=== PATIENT | female | born 1940 | race African-American/Black ===

== ENCOUNTER 2016-12-01 13:06 | Inpatient (IN) | payer MEDICARE, MEDICAID ==
[~2016-12-01] VITALS: Ht 167.6 cm; Wt 68.0 kg
[~2016-12-01 13:06] MED LIST: ACETAMINOPHEN650 M2 ORAL; AMLODIPINE BESYL5 MG ORAL; AMLODIPINE BESYL5 MG PO; ARTIFICIAL TEAR15 ML BOTH EYES; ASPIRIN-LOW81 MG ORAL; AZASAN75 MG PO; AZATHIOPRINE50 MG PO; BACTRIM-DS1 EA ORAL; CARVEDILOL3.125 MG ORAL; CATAPRES0.1 MG ORAL; CHOLESTYRAMINE P4 GM ORAL; COLACE100 MG ORAL; COUMADIN4 MG PO; COUMADIN5 MG ORAL; CYCLOSPORINE100 MG PO; DIPHENHYDRAMINE25 M1 ORAL; DULCOLAX STOOL100 M1 PO; DUONEB 0.5-3(2.53 ML HHN; ESSENTIAL DAIL1 EAC1 PO; FERROUS SULFAT325 MG ORAL; FLORINEF0.1 MG ORAL; FUROSEMIDE40 MG ORAL; HYDRALAZINE HCL25 M1 ORAL; HYDROMORPHO1 MG/1 M2 IVP; LEVAQUIN500 MG ORAL; LOMOTIL TABLET1 EACH ORAL; LYRICA100 MG ORAL; LYRICA75 M1 ORAL; MORPHINE SU2 MG/1 M1 IV; MS CONTIN15 MG ORAL; MS CONTIN30 MG ORAL; OXYCODONE HCL5 MG PO; PERCOCET 10-321 EACH ORAL; PROTONIX20 MG ORAL; RESTORIL30 MG ORAL; ROBITUSSIN100 MG/52 ORAL; ROCEPHIN 11 GM/50 ML IVPB; TEMAZEPAM30 MG PO; VITAMIN C500 M1 ORAL; XARELTO15 MG ORAL; ZINC50 M2 ORAL; ZOSYN3.375 GM IV; ZYRTEC10 MG ORAL; ZYVOX600 MG ORAL; ZYVOX600 MG/300 IVPB
[2016-12-01] MEDS ORDERED: guaiFENesin 100mg/5ml Liq ud ORAL PRN (14:45)
[2016-12-01 16:00] VITALS: BP 143/58
[2016-12-01] MEDS: Lyrica 50mg cap ORAL SCH (19:56)
[2016-12-01] MEDS: Docusate 100mg cap ORAL SCH (19:57)
[2016-12-01 20:00] VITALS: BP 155/73
[2016-12-01] MEDS ORDERED: cycloSPORINE 100mg cap ORAL SCH (20:00)
--- NOTE | 2016-12-01 20:28 | Consultation ---
DATE OF CONSULTATION: 12/01/2016 NEPHROLOGY CONSULTATION REFERRING PHYSICIAN: John Red M.D. REASON FOR CONSULTATION: Management of patient with renal transplant. HISTORY OF PRESENT ILLNESS: The patient is well known to me, who had a kidney transplant in April of 2007 and generally stable renal function, although she had acute kidney injury in the past likely from Tacrolimus or cyclosporin toxicity a few years ago. She is maintained off of prednisone, usually on cyclosporin and Imuran. The patient was seen in the office of Dr. Red and sent directly into the hospital. She apparently had a fall about a week and has facial some contusions and ecchymoses. She is on warfarin for recurrent DVTs. 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 There is a history of congestive heart failure, peripheral vascular disease, recurrent UTIs, hypertension, diabetes, chronic pain, permanent pacemaker and coronary disease. PAST SURGICAL HISTORY: Kidney transplant, multiple dialysis vascular access surgeries, permanent pacemaker, multiple vascular procedures and debridement of the toe and foot ulcers right below-knee amputation and right above knee amputation. MEDICATIONS: The patient cannot give a list, we will try to obtain from the database. ALLERGIES: None known. HABITS: She is a nondrinker and nonsmoker. No use of illicit drugs. REVIEW OF SYSTEMS: HEENT: Generally, vision and hearing is good. Endocrine: She had glucose intolerance in the past, mostly due to steroids, not requiring long-term medications and no known thyroid disease. Pulmonary: No definite asthma or TB. Cardiac: History of permanent pacemaker and history of hypertension heart disease. No current chest pain. Gastrointestinal: She has had intermittent nausea and vomiting. She has had C. difficile in the past. Genitourinary: She has urinary incontinence and recurrent UTIs. No dysuria at this time. Neurologic: No CVA or seizures. She has had some metabolic encephalopathy. Psychiatric: History of chronic pain and anxiety. PHYSICAL EXAMINATION: GENERAL: She is alert, somewhat anxious lady in pain and uncomfortable. VITAL SIGNS: The patient was seen just shortly after arrival in the hospital and vital signs from the computer will be checked. HEENT: There is facial ecchymoses mostly underneath the left eye. Her eyes are open. Sclerae nonicteric. Oral mucosa moist. NECK: No adenopathy. LUNGS: Clear. HEART: Regular rhythm. I hear no murmur. ABDOMEN: Soft. No organomegaly or masses. Renal transplant in the right iliac fossa, nontender. EXTREMITIES: Right above knee amputation. Left leg with some recent alok. Trace edema. NEUROLOGIC: She is alert and responsive. Ocular motion intact in all directions. Smile symmetric. She moves all extremities. IMPRESSION: 1. Kidney transplant status. 2. History of recent falls. 3. Facial contusion. 4. History of recurrent urinary tract infections. 5. History of chronic pain. 6. History of peripheral vascular disease and prior vascular surgery with amputations. 7. Possible syncope. PLAN: Data will be checked. We will review her transplant regimen and review medications for her renal disease and follow closely in view of her multiple comorbidities. Thank you. Kade Cochran M.D. DR: AXEL JOB#: [id number] CC:
--- NOTE | 2016-12-01 21:48 | History and Physical Report ---
DATE OF ADMISSION: 12/01/2016 CHIEF COMPLAINT: Syncope. HISTORY OF PRESENT ILLNESS: The patient is a 76-year-old female, who presents to the office with complaints of syncopal episode. According to the patient, she was in a wheelchair and then shortly thereafter found herself being down on the floor. A friend brought her to the office. She had a large ecchymosis to her face. She denies any chest pain, shortness of breath, or palpitations. Denies any dizziness prior to the syncopal episode. She is now admitted for further evaluation and care. The patient was recently hospitalized to an outside hospital. She apparently had some type of surgery for a fracture of her hip or leg. She denies any fever or chills. No chest pain. No shortness of breath. PAST MEDICAL/SURGICAL HISTORY: As above. She has history of kidney transplant and history of right BKA. CURRENT MEDICATIONS: Reconciled and reviewed. ALLERGIES: None. FAMILY HISTORY: None. SOCIAL HISTORY: Negative for tobacco, ethanol, or drugs. REVIEW OF SYSTEMS: General: No fevers or chills. HEENT: No headaches or visual changes. Cardiopulmonary: No chest pain or shortness of breath. Gastrointestinal: No nausea or vomiting. Genitourinary: No urgency or frequency. Musculoskeletal: Positive history of phantom limb pain. Neurological: No evidence of seizures. PHYSICAL EXAMINATION: VITAL SIGNS: Temperature 98 degrees, blood pressure 140/74, pulse 80, and respirations 20. GENERAL: The patient is a well-developed female, in no apparent distress. HEENT: She has ecchymosis over the forehead and left face area. There is no crepitus noted. Extraocular movements are intact. NECK: Supple. There is no jugular venous distention. HEART: Regular rate and rhythm. LUNGS: Clear. ABDOMEN: Soft, nontender, and nondistended. EXTREMITIES: Without clubbing or cyanosis. The patient has right BKA. The left leg has sutures around the knee. ASSESSMENT: This is an elderly female, who complaints of a syncopal episode. 1. Syncope. 2. Questionable femur versus hip fracture, status post open reduction and internal fixation. 3. History of deep venous thrombosis. 4. History of hypertension. 5. History of anemia. 6. Hypertension. 7. Peripheral artery disease. 8. History of right [id number] amputation. PLAN: 1. Check laboratories. 2. Check an EKG. 3. Monitor on telemetry. 4. Check troponin. 5. Cardiology consultation. 6. Renal consultation regarding the patient's transplant medications. 7. Intravenous pain medications as needed for pain control. John Red M.D. DR: YISSEL JOB#: [id number] CC:
[2016-12-01] MEDS: HydrALAZINE 25mg tab ORAL SCH (22:01)
[2016-12-01] MEDS: Heparin 5000 units/ml inj SUBQ SCH (22:02)
[2016-12-01] MEDS: MS Contin 15mg tab ORAL SCH (22:02)
[2016-12-01] MEDS: NovoLOG Insulin Flexpen SUBQ SCH (22:05)
[2016-12-02] VITALS: BP 145/58
[2016-12-02 01:09] LABS: APPEARANCE,URINE CLOUDY; KETONES,URINE NEGATIVE (NEGATIVE); LEUKOCYTE ESTERASE ,URINE 3+ (NEGATIVE); NITRITE,URINE NEGATIVE (NEGATIVE); PH,URINE 6 (4.5-8.0); PROTEIN,URINE 3+ (NEGATIVE); UROBILINOGEN,URINE NORMAL MG/DL (0.0-1.0)
[2016-12-02 01:19] LABS: BACTERIA,URINE MANY /HPF; SQUAMOUS EPITHELIAL CELL,UR FEW /LPF (NONE/OCC); WBC,URINE TNTC /HPF (0 - 2)
[2016-12-02 04:00] VITALS: BP 154/61
[2016-12-02 05:48] VITALS: BP 134/70
[2016-12-02] MEDS: HydrALAZINE 25mg tab ORAL SCH ×3 (05:50→21:49)
[2016-12-02] MEDS: NovoLOG Insulin Flexpen SUBQ SCH ×4 (05:58→21:00)
[2016-12-02 06:37] LABS: BASOPHILS % (AUTO) 0.7 % (0.0-2.0); EOSINOPHILS % (AUTO) 1.7 % (0.0-3.0); LYMPHOCYTES % (AUTO) 22.5 % (20.0-45.0); MEAN CORPUSCULAR HEMOGLOBIN 30.7 PG (27.0-31.0); MEAN CORPUSCULAR HGB CONC 31.6 G/DL (32.0-36.0); MEAN CORPUSCULAR VOLUME 97 FL (80-99); NEUTROPHILS % (AUTO) 70.1 % (45.0-75.0); PLATELET COUNT 276 K/UL (150-450); RED BLOOD COUNT 3.15 M/UL (4.20-5.40); RED CELL DISTRIBUTION WIDTH 13.6 % (11.6-14.8); WHITE BLOOD COUNT 6.3 K/UL (4.8-10.8)
[2016-12-02 06:45] LABS: INR 1.1 (0.9-1.1); PROTHROMBIN TIME 11.4 SEC (9.30-11.50)
[2016-12-02 07:12] LABS: ALANINE AMINOTRANSFERASE 5 U/L (3-33); ALBUMIN/GLOBULIN RATIO 0.7 (1.0-2.7); ANION GAP 14 (5-15); ASPARTATE AMINO TRANSFERASE 13 U/L (5-40); CARBON DIOXIDE 25 mEQ/L (20-30); CHLORIDE 106 mEQ/L (98-107); CREATININE 1.1 mg/dL (0.5-0.9); HEMOLYSIS 3; POTASSIUM 3.7 mEQ/L (3.4-4.9); SODIUM 145 mEQ/L (135-145); TOTAL PROTEIN 7.1 g/dL (6.6-8.7)
[2016-12-02 07:57] VITALS: BP 125/55
[2016-12-02] MEDS: Docusate 100mg cap ORAL SCH ×2 (08:38→18:00)
[2016-12-02] MEDS: Aspirin EC 81mg tab ORAL SCH (08:41)
[2016-12-02] MEDS: azaTHIOprine 50 MG TAB ORAL SCH (08:42)
[2016-12-02] MEDS: Furosemide 40mg tab ORAL SCH (08:43)
[2016-12-02] MEDS: Lyrica 50mg cap ORAL SCH ×2 (08:44→18:20)
[2016-12-02] MEDS: MS Contin 15mg tab ORAL SCH ×2 (08:45→21:49)
[2016-12-02] MEDS: Ascorbic Acid 500mg tab ORAL SCH (08:46)
[2016-12-02] MEDS: cycloSPORINE 25mg cap ORAL SCH ×2 (08:47→18:20)
[2016-12-02] MEDS: Heparin 5000 units/ml inj SUBQ SCH ×2 (08:48→21:51)
[2016-12-02 12:00] VITALS: BP 140/77
--- NOTE | 2016-12-02 16:10 | Wound Care Consultation ---
Wound Assessment Wound Assessment #1: Wound Present on Admission: Yes New Wound: No Status Change of Wound: No Wound Location Body Site Modif: mid Wound Location Body Site: sacral Wound Type: pressure ulcer Rodolfo Test: Does not Rodolfo Pressure Ulcer Stage: III Wound Thickness: Full Thickness Wound Depth: 0.2 Percent of Wound [place]/Red: 100 Wound Drainage Amount: Scant Wound Drainage Odor: None/Absent Tissue Surrounding Wound: full thickness scar tissue Wound General Appearance: Reddened Wound Assessment #2: Wound Number: #2 Wound Present on Admission: Yes New Wound: No Status Change of Wound: No Wound Location Body Site Modif: left Wound Location Body Site: trochanter Wound Type: pressure ulcer Rodolfo Test: Does not Rodolfo Pressure Ulcer Stage: IV/unstageable Wound Thickness: Full Thickness Wound Length: 1.5 Wound Width: 4.0 Wound Depth: utd Percent of Wound Bed Yellow/Wh: 70 Percent of Wound Black/Brown: 30 Wound Drainage Amount: None Wound Drainage Odor: None/Absent Tissue Surrounding Wound: Indurated Wound Assessment #3: Wound Number: #3 Wound Present on Admission: Yes New Wound: No Status Change of Wound: No Wound Location Body Site Modif: right Wound Location Body Site: trochanter Wound Type: pressure ulcer Rodolfo Test: Does not Rodolfo Wound Thickness: Full Thickness Wound Length: 1.5 Wound Width: 2.5 Wound Depth: utd Percent of Wound [place]/Red: 100 Wound Drainage Amount: None Wound Drainage Odor: None/Absent Tissue Surrounding Wound: Intact Wound Assessment #4: Wound Number: #4 Wound Present on Admission: Yes New Wound: No Status Change of Wound: No Wound Location Body Site Modif: left Wound Location Body Site: toe - great toe Wound Type: scab Rodolfo Test: Does not Rodolfo Wound Thickness: Full Thickness Wound Length: 1.5 Wound Width: 2.0 Wound Depth: utd Wound Drainage Amount: None Wound Drainage Odor: None/Absent Tissue Surrounding Wound: Intact Wound General Appearance: Asymptomatic Wound Assessment #5: Wound Number: #5 Wound Present on Admission: Yes New Wound: No Status Change of Wound: No Wound Location Body Site: perineal area Wound Type: chemical burn Wound Drainage Amount: None Wound Drainage Odor: None/Absent Tissue Surrounding Wound: Erythemic Wound General Appearance: Reddened Wound Comment #1 Sacral scattered stage III pressure ulcers #2 Left trochanter stage IV/unstageable pressure ulcers #3 Right trochanter and right buttock with full thickness scar tissue #4 Chemical burn on perineal area #5 Left big toe s/p amputation with dry scab #6 Left knee and groin area incision with alok Recommendation -Sacral area scattered stage III pressure ulcers , cleanse with saline, pat dry , apply Triad cream, cover with Biatain silicone daily and PRN soiled/dislodged -Left trochanter stage IV/unstageable pressure ulcer, cleanse with saline, pat dry, apply Silvasorb gel to wound bed, cover with Biatain silicone daily and PRN soiled/ dislodged -Chemical burn on perineal area, cleanse with saline, pat dry, apply Triad cream BID and leave area open to air -F/u with surgeon for the care and further orders regarding incisions with alok on the left knee area and groin area. -Turn and reposition -Low air loss overlay mattress -Optimize nutrition -Keep clean and dry -Offload left heel -Assess and f/u accordingly for any changes NANDA MILLS RN Dec 02, 2016 16:10
[2016-12-02] MEDS ORDERED: Tubing IV Secondary IV ONE (16:49)
--- NOTE | 2016-12-02 16:59 | General Progress Note ---
Assessment/Plan Problem List: (1) Encephalopathy acute ICD Codes: G93.40 - Encephalopathy acute SNOMED: 3481526 (2) Dehydration ICD Codes: E86.0 - Dehydration SNOMED: 58781912 (3) Urinary tract infection (4) Diastolic CHF with preserved left ventricular function, NYHA class 2 ICD Codes: I50.30 - Unspecified diastolic (congestive) heart failure SNOMED: 976049381, 139057853, 165718835, 674949692 (5) Incontinence of urine in female ICD Codes: R32 - Unspecified urinary incontinence SNOMED: 182492410 (6) Kidney transplanted ICD Codes: Z94.0 - Kidney transplanted SNOMED: 245353108 Status: stable Assessment/Plan xray left hip/leg/knee IV abx per ID wound care follow up cultures pain rx kidney transplant meds per renal cards follow up Subjective ROS Limited/Unobtainable: No Constitutional: Reports: malaise, weakness HEENT: Reports: no symptoms Cardiovascular: Reports: no symptoms Respiratory: Reports: no symptoms Gastrointestinal/Abdominal: Reports: no symptoms Genitourinary: Reports: no symptoms Neurologic/Psychiatric: Reports: no symptoms Endocrine: Reports: no symptoms Hematologic/Lymphatic: Reports: no symptoms Allergies: Coded Allergies: No Known Allergies (Verified , 05/29/09) All Systems: reviewed and negative except above Subjective c/o generalized pain, especially left leg. wound consult noted. no chest pain no sob. also c/o insomnia and anxiety. Objective Last 24 Hour Vital Signs Date Time Temp Pulse Resp B/P Pulse Ox O2 Delivery O2 Flow Rate FiO2 12/02/16 14:38 137/79 12/02/16 12:00 97.9 82 19 140/77 98 Room Air 12/02/16 08:46 81 125/75 12/02/16 07:57 98.1 81 20 125/55 100 Room Air 12/02/16 05:50 134/70 12/02/16 05:48 96.4 78 18 134/70 100 Room Air 12/02/16 04:00 97.9 89 18 154/61 100 Room Air 12/02/16 00:00 97.7 87 18 145/58 100 Room Air 12/01/16 22:01 155/73 12/01/16 20:00 98.1 87 22 155/73 99 Room Air Intake and Output 12/01/16 12/02/16 19:00 07:00 Intake Total 2020 ml Balance 2020 ml Intake Oral 1600 ml IV Total 420 ml # Voids 3 # Bowel Movements 2 Laboratory Tests 12/02/16 00:30: Urine Color Yellow, Urine Appearance Cloudy, Urine pH 6, Urine Specific [place] 1.010, Urine Protein 3+H, Urine Glucose (UA) Negative, Urine Ketones Negative, Urine Occult Blood 3+H, Urine Nitrite Negative, Urine Bilirubin Negative, Urine Urobilinogen Normal, Urine Leukocyte Esterase 3+H, Urine RBC 5-10H, Urine WBC TntcH, Urine Squamous Epithelial Cells Few, Urine Bacteria ManyH 12/02/16 05:15: White Blood Count 6.3, Red Blood Count 3.15L, Hemoglobin 9.7L, Hematocrit 30.5L , Mean Corpuscular Volume 97, Mean Corpuscular Hemoglobin 30.7, Mean Corpuscular Hemoglobin Concent 31.6L, Red Cell Distribution Width 13.6, Platelet Count 276, Mean Platelet Volume 8.0, Neutrophils (%) (Auto) 70.1, Lymphocytes (%) (Auto) 22.5, Monocytes (%) (Auto) 5.0, Eosinophils (%) (Auto) 1.7, Basophils (%) (Auto) 0.7, Prothrombin Time 11.4, Prothromb Time International Ratio 1.1, Sodium Level 145, Potassium Level 3.7, Chloride Level 106, Carbon Dioxide Level 25, Anion Gap 14, Blood Urea Nitrogen 17, Creatinine 1.1H, Estimat Glomerular Filtration Rate , Glucose Level 96, Calcium Level 9.0, Total Bilirubin 0.5, Aspartate Amino Transf (AST/SGOT) 13, Alanine Aminotransferase (ALT/SGPT) 5, Alkaline Phosphatase 105H, Total Protein 7.1, Albumin 3.1L, Globulin 4.0, Albumin/Globulin Ratio 0.7L Height (Feet): 5 Height (Inches): 6.00 Weight (Pounds): 150 General Appearance: WD/WN, alert, thin Neck: non-tender, normal alignment, supple Cardiovascular: normal peripheral pulses, normal rate, regular rhythm Respiratory/Chest: chest wall non-tender, lungs clear, normal breath sounds, no respiratory distress Abdomen: normal bowel sounds, non tender, soft, no organomegaly, no mass Extremities: other - alok left knee/leg. 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
[2016-12-02] MEDS: cefTRIAXone 1 GM in D5W 55 ML IVPB SCH (18:20)
[2016-12-02 20:19] VITALS: BP 124/54
--- NOTE | 2016-12-02 22:12 | Nephrology Progress Note ---
Assessment/Plan Problem List: (1) Peripheral vascular disease (2) Urinary tract infection (3) Diastolic CHF with preserved left ventricular function, NYHA class 2 (4) Status post kidney transplant Plan continue current imuran and cyclosporin, Rx for uti Subjective Constitutional: Reports: weakness HEENT: Reports: no symptoms Genitourinary: Reports: burning, incontinence Neurologic/Psychiatric: Reports: pre-existing deficit Objective Objective Last 24 Hour Vital Signs Date Time Temp Pulse Resp B/P Pulse Ox O2 Delivery O2 Flow Rate FiO2 12/02/16 21:49 124/54 12/02/16 20:19 97.0 54 18 124/54 100 Room Air 12/02/16 14:38 137/79 12/02/16 12:00 97.9 82 19 140/77 98 Room Air 12/02/16 08:46 81 125/75 12/02/16 07:57 98.1 81 20 125/55 100 Room Air 12/02/16 05:50 134/70 12/02/16 05:48 96.4 78 18 134/70 100 Room Air 12/02/16 04:00 97.9 89 18 154/61 100 Room Air 12/02/16 00:00 97.7 87 18 145/58 100 Room Air Intake and Output 12/01/16 12/02/16 19:00 07:00 Intake Total 2020 ml Balance 2020 ml Intake Oral 1600 ml IV Total 420 ml # Voids 3 # Bowel Movements 2 Laboratory Tests 12/02/16 00:30: Urine Color Yellow, Urine Appearance Cloudy, Urine pH 6, Urine Specific [place] 1.010, Urine Protein 3+H, Urine Glucose (UA) Negative, Urine Ketones Negative, Urine Occult Blood 3+H, Urine Nitrite Negative, Urine Bilirubin Negative, Urine Urobilinogen Normal, Urine Leukocyte Esterase 3+H, Urine RBC 5-10H, Urine WBC TntcH, Urine Squamous Epithelial Cells Few, Urine Bacteria ManyH 12/02/16 05:15: White Blood Count 6.3, Red Blood Count 3.15L, Hemoglobin 9.7L, Hematocrit 30.5L , Mean Corpuscular Volume 97, Mean Corpuscular Hemoglobin 30.7, Mean Corpuscular Hemoglobin Concent 31.6L, Red Cell Distribution Width 13.6, Platelet Count 276, Mean Platelet Volume 8.0, Neutrophils (%) (Auto) 70.1, Lymphocytes (%) (Auto) 22.5, Monocytes (%) (Auto) 5.0, Eosinophils (%) (Auto) 1.7, Basophils (%) (Auto) 0.7, Prothrombin Time 11.4, Prothromb Time International Ratio 1.1, Sodium Level 145, Potassium Level 3.7, Chloride Level 106, Carbon Dioxide Level 25, Anion Gap 14, Blood Urea Nitrogen 17, Creatinine 1.1H, Estimat Glomerular Filtration Rate , Glucose Level 96, Calcium Level 9.0, Total Bilirubin 0.5, Aspartate Amino Transf (AST/SGOT) 13, Alanine Aminotransferase (ALT/SGPT) 5, Alkaline Phosphatase 105H, Total Protein 7.1, Albumin 3.1L, Globulin 4.0, Albumin/Globulin Ratio 0.7L Height (Feet): 5 Height (Inches): 6.00 Weight (Pounds): 150 General Appearance: no apparent distress, alert EENT: other - facil eccymoses Neck: non-tender Cardiovascular: normal peripheral pulses, normal rate, regular rhythm Respiratory/Chest: lungs clear, normal breath sounds Abdomen: non tender, soft Extremities: pitting, other - r aka 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
[2016-12-03] VITALS: BP 134/66
[2016-12-03 04:00] VITALS: BP 114/78
[2016-12-03] MEDS: HydrALAZINE 25mg tab ORAL SCH ×3 (06:27→20:45)
[2016-12-03] MEDS: NovoLOG Insulin Flexpen SUBQ SCH ×4 (06:27→20:57)
--- NOTE | 2016-12-03 07:54 | General Progress Note ---
Assessment/Plan Problem List: (1) Encephalopathy acute ICD Codes: G93.40 - Encephalopathy acute SNOMED: 3789913 (2) Dehydration ICD Codes: E86.0 - Dehydration SNOMED: 93333038 (3) Urinary tract infection (4) Diastolic CHF with preserved left ventricular function, NYHA class 2 ICD Codes: I50.30 - Unspecified diastolic (congestive) heart failure SNOMED: 616397864, 795399662, 919030298, 813293815 (5) Incontinence of urine in female ICD Codes: R32 - Unspecified urinary incontinence SNOMED: 959088117 (6) Kidney transplanted ICD Codes: Z94.0 - Kidney transplanted SNOMED: 688959762 Status: stable, progressing Assessment/Plan xray left hip/leg/knee IV abx per ID wound care follow up cultures pain rx kidney transplant meds per renal cards follow up pain meds adjusted. check duplex leg Subjective ROS Limited/Unobtainable: No Constitutional: Reports: weakness HEENT: Reports: no symptoms Cardiovascular: Reports: no symptoms Respiratory: Reports: no symptoms Gastrointestinal/Abdominal: Reports: no symptoms Genitourinary: Reports: no symptoms Neurologic/Psychiatric: Reports: pre-existing deficit Endocrine: Reports: no symptoms Hematologic/Lymphatic: Reports: anemia Allergies: Coded Allergies: No Known Allergies (Verified , 05/29/09) All Systems: reviewed and negative except above Subjective c/o generalized pain, especially left leg. wound consult noted. no chest pain no sob. per pt pain poorly controlled. Objective Last 24 Hour Vital Signs Date Time Temp Pulse Resp B/P Pulse Ox O2 Delivery O2 Flow Rate FiO2 12/03/16 06:27 114/78 12/03/16 04:00 97.9 85 19 114/78 96 Room Air 12/03/16 00:00 97.2 91 18 134/66 98 Room Air 12/02/16 22:48 97.0 12/02/16 21:49 124/54 12/02/16 21:00 83 12/02/16 20:19 97.0 54 18 124/54 100 Room Air 12/02/16 14:38 137/79 12/02/16 12:00 97.9 82 19 140/77 98 Room Air 12/02/16 08:46 81 125/75 12/02/16 07:57 98.1 81 20 125/55 100 Room Air Intake and Output 2/28/17 3/1/17 19:00 07:00 Intake Total 1237 ml 870 ml Output Total 0 ml Balance 1237 ml 870 ml Intake Oral 482 ml 240 ml IV Total 755 ml 630 ml Output Urine Total 0 ml # Voids 2 2 # Bowel Movements 1 Height (Feet): 5 Height (Inches): 6.00 Weight (Pounds): 150 General Appearance: WD/WN, alert Neck: supple Cardiovascular: regular rhythm Respiratory/Chest: chest wall non-tender, lungs clear, normal breath sounds, no respiratory distress Abdomen: normal bowel sounds, non tender, soft, no organomegaly Edema: no edema noted Arm (L), no edema noted Arm (R), no edema noted Leg (L), no edema noted Leg (R), no edema noted Pedal (L), no edema noted Pedal (R), no edema noted Generalized 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
[2016-12-03 08:40] VITALS: BP 120/75
[2016-12-03] MEDS: Docusate 100mg cap ORAL SCH ×2 (09:00→17:52)
[2016-12-03] MEDS: cycloSPORINE 25mg cap ORAL SCH ×2 (09:39→17:50)
[2016-12-03] MEDS: Furosemide 40mg tab ORAL SCH (09:39)
[2016-12-03] MEDS: Aspirin EC 81mg tab ORAL SCH (09:39)
[2016-12-03] MEDS: Lyrica 50mg cap ORAL SCH ×2 (09:40→17:51)
[2016-12-03] MEDS: Ascorbic Acid 500mg tab ORAL SCH (09:41)
[2016-12-03] MEDS: MS Contin 15mg tab ORAL SCH ×2 (09:41→21:00)
[2016-12-03] MEDS: azaTHIOprine 50 MG TAB ORAL SCH (09:41)
[2016-12-03] MEDS: Heparin 5000 units/ml inj SUBQ SCH ×2 (09:50→21:08)
--- NOTE | 2016-12-03 11:11 | Diagnostic Imaging Report ---
Indications: hip pain Findings: Two views of the left hip were obtained. 2 views of the left hip show pins reducing a fracture of the femoral neck. There is also an intramedullary carlo that is only seen in its upper portion. The carlo extends to the lower shaft of the femur. Stent within the distal SFA noted. Surgical clips and vascular lesions are noted. Impression: No acute injury identified
--- NOTE | 2016-12-03 11:13 | Diagnostic Imaging Report ---
Indication: Pain 3 views of the left knee were obtained. Findings: The bones are osteopenic. There is an acute fracture of the metadiaphysis of the distal femur. The fracture is oblique and extends through the intramedullary carlo. The fracture is intra-articular as the anterior part of the fracture extends into the suprapatellar pouch. Extensive stenting of the distal SFA and popliteal artery are noted. Surgical clips demonstrated. There are skin alok and gas within the knee. Impression: Acute distal femur fracture. Intramedullary carlo noted in place. Status post recent surgery involving the intra-part of the knee. Vascular disease. Status post distal SFA and popliteal artery stenting. Osteoporosis
[2016-12-03 12:00] VITALS: BP 115/70
[2016-12-03] MEDS: HYDROmorphone 1mg/ml Carpuject IVP PRN (14:04)
[2016-12-03 16:00] VITALS: BP 133/49
[2016-12-03] MEDS ORDERED: Tubing IV Secondary IV ONE (17:21)
[2016-12-03] MEDS: cefTRIAXone 1 GM in D5W 55 ML IVPB SCH (17:51)
[2016-12-03 20:00] VITALS: BP 119/55
--- NOTE | 2016-12-03 21:26 | Nephrology Progress Note ---
Assessment/Plan Problem List: (1) Peripheral vascular disease (2) Urinary tract infection (3) Diastolic CHF with preserved left ventricular function, NYHA class 2 (4) Status post kidney transplant (5) Syncopal episodes Plan continue current imuran and cyclosporin, Rx for uti Subjective Constitutional: Reports: weakness HEENT: Reports: no symptoms Genitourinary: Reports: frequency, incontinence Neurologic/Psychiatric: Reports: emotional problems Objective Objective Last 24 Hour Vital Signs Date Time Temp Pulse Resp B/P Pulse Ox O2 Delivery O2 Flow Rate FiO2 12/03/16 20:45 119/55 12/03/16 20:00 97.2 80 18 119/55 96 Room Air 12/03/16 16:00 97.3 82 19 133/49 97 Room Air 12/03/16 14:29 96.6 12/03/16 14:05 115/70 12/03/16 12:00 98.2 83 19 115/70 98 Room Air 12/03/16 10:40 96.6 12/03/16 09:39 90 120/75 12/03/16 09:35 96.6 12/03/16 08:40 96.6 90 18 120/75 98 Room Air 12/03/16 06:27 114/78 12/03/16 04:00 97.9 85 19 114/78 96 Room Air 12/03/16 00:00 97.2 91 18 134/66 98 Room Air 12/02/16 21:49 124/54 Intake and Output 12/02/16 12/03/16 19:00 07:00 Intake Total 1237 ml 1110 ml Output Total 0 ml Balance 1237 ml 1110 ml Intake Oral 482 ml 480 ml IV Total 755 ml 630 ml Output Urine Total 0 ml # Voids 2 3 # Bowel Movements 1 Height (Feet): 5 Height (Inches): 6.00 Weight (Pounds): 150 General Appearance: no apparent distress, alert EENT: PERRL/EOMI, other - facial eccymoses Neck: normal alignment Cardiovascular: normal rate, regular rhythm Respiratory/Chest: lungs clear, normal breath sounds Abdomen: non tender, soft Extremities: other - r aka 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
[2016-12-04] VITALS: BP 133/74
--- NOTE | 2016-12-04 03:38 | Progress Note ---
DATE: 12/02/2016 CARDIOLOGY PROGRESS NOTE SUBJECTIVE: The patient has not had any recurring loss of consciousness. She notes no nausea or vomiting. No chest pain, palpitations, or shortness of breath. OBJECTIVE: VITAL SIGNS: Blood pressure 124/54, pulse 82, and respirations 18. Afebrile. NECK: Supple. LUNGS: Clear. CARDIAC: Regular rhythm and rate. Normal S1 and S2. ABDOMEN: Soft. EXTREMITIES: Right AKA. LABORATORY DATA: Hemoglobin 9.7. Albumin 3.1. BUN 17, creatinine 1.1 and potassium 3.7. IMPRESSION: 1. Status post left leg fracture. 2. Urinary tract infection. 3. Renal transplant. 4. Vasovagal mediated syncope rule out pacemaker failure. 5. Chronic diastolic congestive heart failure. 6. Type 2 diabetes mellitus. 7. History of renal transplant. PLAN: 1. Immunosuppressive therapy. 2. Antimicrobials. 3. Pain control. 4. Pacemaker interrogation. 5. Reassess for anticoagulation. Matthew Tinajero M.D. DR: PATRICIA JOB#: [id number] CC:
--- NOTE | 2016-12-04 03:38 | Progress Note ---
DATE: 12/03/2016 CARDIOLOGY PROGRESS NOTE SUBJECTIVE: The patient is without any new episodes of loss of consciousness. OBJECTIVE: VITAL SIGNS: Blood pressure 114/78, pulse 85, respirations 19, and afebrile. NECK: Supple. LUNGS: Clear. CARDIAC: Regular. Normal S1 and S2. ABDOMEN: Soft. EXTREMITIES: Right AKA. Left knee area with suture site. LABORATORY AND DIAGNOSTIC DATA: Venous duplex is pending. Laboratories were reviewed. IMPRESSION: 1. Syncopal episode etiology unclear likely vasovagal mediated. 2. Need to rule out pacemaker failure. 3. Peripheral artery disease. 4. Hypertensive heart disease. 5. Left leg fracture status post open reduction and internal fixation. 6. History of renal transplant. PLAN: 1. X-rays of the lower extremity are pending. 2. Immunosuppressive therapy has been titrated. 3. Pacemaker interrogation will be anticipated tomorrow. 4. Venous duplex to assess for source of pulmonary emboli and need for recurring anticoagulation. 5. Further recommendations will follow. Matthew Tinajero M.D. DR: PATRICIA JOB#: [id number] CC:
--- NOTE | 2016-12-04 03:38 | Consultation ---
DATE OF CONSULTATION: 12/01/2016 CARDIOLOGY CONSULTATION REQUESTING PHYSICIAN: John Red M.D. REASON FOR CONSULTATION: Syncope. HISTORY OF PRESENT ILLNESS: This is a 76-year-old female with hypertensive heart disease and permanent pacemaker. She was in a wheelchair and suddenly found herself down on the floor, which occurred at home. She suffered a contusion to her face with large ecchymosis subsequently developing. She was brought to the office of her primary care physician for evaluation and then admitted to the hospital for further management. PAST MEDICAL HISTORY: Renal transplant, right BKA, permanent pacemaker, hypertensive heart disease, degenerative disk disease, recent hip fracture, insulin-requiring diabetes mellitus, diabetic neuropathy, and history of DVT. ALLERGIES: None. FAMILY HISTORY: Not remarkable. SOCIAL HISTORY: Negative for smoking, alcohol, or substance abuse. REVIEW OF SYSTEMS: No history of retinopathy, diabetes managed with diet, insulin-requiring if she is on steroids. No nausea or vomiting. She has had a history of C. difficile in the past. No history of seizures. No history of asthma. No history of blood clots in the legs. Her most recent echocardiogram revealed normal ejection fraction with mild degenerative valve disease. There is no history of thyroid disorder. Cholesterol parameters are not presently available. PHYSICAL EXAMINATION: GENERAL: She is presently in no acute distress, but anxious. Afebrile. VITAL SIGNS: Blood pressure 142/58, pulse 80, and respirations 20. HEENT: Temporal wasting. Pale conjunctivae. Arcus senilis. Oropharynx is clear. NECK: Supple. No carotid sinus hypersensitivity. LUNGS: Clear. CARDIAC: Regular rhythm and rate. Normal S1 and S2 with a fourth heart sound. ABDOMEN: Soft and nontender. EXTREMITIES: Right BKA. Left leg wound sutures around the knee. IMAGING STUDIES: Pacemaker pocket site clean and dry on the chest wall. IMPRESSION: 1. Syncopal episode etiology unclear. 2. Permanent pacemaker rule out pacemaker failure. 3. Recent hip or femur fracture. 4. History of deep vein thrombosis on anticoagulation. 5. History of hypertension. 6. Type 2 diabetes mellitus. 7. Severe peripheral artery disease. 8. History of renal transplant. PLAN: 1. We will review EKG. 2. We will obtain pacemaker interrogation. 3. We will monitor orthostatics. 4. Further recommendations to follow. Matthew Jennifer Tinajero DR: PATRICIA JOB#: [id number] CC:
[2016-12-04] MEDS: HydrALAZINE 25mg tab ORAL SCH ×3 (06:00→21:42)
[2016-12-04] MEDS: NovoLOG Insulin Flexpen SUBQ SCH ×4 (06:18→20:34)
[2016-12-04] MEDS: cycloSPORINE 25mg cap ORAL SCH ×2 (07:59→17:41)
[2016-12-04] MEDS: Lyrica 50mg cap ORAL SCH ×2 (07:59→17:41)
[2016-12-04] MEDS: Ascorbic Acid 500mg tab ORAL SCH (07:59)
[2016-12-04] MEDS: MS Contin 15mg tab ORAL SCH ×2 (08:00→20:35)
[2016-12-04] MEDS: Aspirin EC 81mg tab ORAL SCH (08:00)
[2016-12-04] MEDS: Furosemide 40mg tab ORAL SCH (08:01)
[2016-12-04] MEDS: Docusate 100mg cap ORAL SCH ×2 (08:01→17:41)
[2016-12-04] MEDS: azaTHIOprine 50 MG TAB ORAL SCH (08:01)
[2016-12-04] MEDS: Heparin 5000 units/ml inj SUBQ SCH ×2 (08:12→20:33)
[2016-12-04 08:58] VITALS: BP 126/61
--- NOTE | 2016-12-04 12:28 | Diagnostic Imaging Report ---
APPROVED REPORT CPT Code: 08679 Present Symptoms Lower Extremity Pain: Left LEFT LEG: Venous imaging reveals recanalized chronic thrombus in the common femoral vein. The remainder of the deep venous system is within normal limits. There is no evidence of thrombus in the superficial femoral, popliteal or calf veins. Doppler indicates normal spontaneous flow within these segments. There is no evidence of acute deep vein thrombosis.
[2016-12-04 12:53] VITALS: BP 113/56
[2016-12-04] MEDS: HYDROmorphone 1mg/ml Carpuject IVP PRN (13:28)
--- NOTE | 2016-12-04 13:59 | General Progress Note ---
Assessment/Plan Problem List: (1) Encephalopathy acute ICD Codes: G93.40 - Encephalopathy acute SNOMED: 5673725 (2) Dehydration ICD Codes: E86.0 - Dehydration SNOMED: 62205899 (3) Urinary tract infection (4) Diastolic CHF with preserved left ventricular function, NYHA class 2 ICD Codes: I50.30 - Unspecified diastolic (congestive) heart failure SNOMED: 977230000, 938250403, 775389214, 727852827 (5) Incontinence of urine in female ICD Codes: R32 - Unspecified urinary incontinence SNOMED: 891486074 (6) Kidney transplanted ICD Codes: Z94.0 - Kidney transplanted SNOMED: 787916621 Status: stable, progressing Assessment/Plan xray left hip/leg/knee noted IV abx per ID wound care follow up cultures- gnr pain rx kidney transplant meds per renal cards follow up pain meds adjusted. ortho eval called will likely need snf. Subjective ROS Limited/Unobtainable: No Constitutional: Reports: malaise, weakness HEENT: Reports: no symptoms Cardiovascular: Reports: no symptoms Respiratory: Reports: no symptoms Gastrointestinal/Abdominal: Reports: no symptoms Genitourinary: Reports: no symptoms Neurologic/Psychiatric: Reports: pre-existing deficit Endocrine: Reports: no symptoms Hematologic/Lymphatic: Reports: no symptoms Allergies: Coded Allergies: No Known Allergies (Verified , 05/29/09) All Systems: reviewed and negative except above Subjective c/o generalized pain, especially left leg. wound consult noted. no chest pain no sob. per pt pain poorly controlled. on dilaudid iv. xrays noted. ucx with GNR Objective Last 24 Hour Vital Signs Date Time Temp Pulse Resp B/P Pulse Ox O2 Delivery O2 Flow Rate FiO2 12/04/16 13:07 113/56 12/04/16 12:53 97.7 78 19 113/56 97 Room Air 12/04/16 08:59 97.0 12/04/16 08:58 97.0 82 19 126/61 100 Room Air 12/04/16 08:03 87 123/51 12/04/16 07:30 98.1 12/04/16 06:00 123/51 12/04/16 00:00 98.1 87 19 133/74 98 Room Air 12/03/16 20:45 119/55 12/03/16 20:00 97.2 80 18 119/55 96 Room Air 12/03/16 16:00 97.3 82 19 133/49 97 Room Air 12/03/16 14:29 96.6 12/03/16 14:05 115/70 Intake and Output 12/03/16 12/04/16 18:59 06:59 Intake Total 55 ml 240 ml Balance 55 ml 240 ml Intake Oral 240 ml IV Total 55 ml # Voids 2 3 Height (Feet): 5 Height (Inches): 6.00 Weight (Pounds): 150 Objective General Appearance: WD/WN, alert Neck: supple Cardiovascular: regular rhythm Respiratory/Chest: chest wall non-tender, lungs clear, normal breath sounds, no respiratory distress Abdomen: normal bowel sounds, non tender, soft, no organomegaly Edema: no edema noted Arm (L), no edema noted Arm (R), no edema noted Leg (L), no edema noted Leg (R), no edema noted Pedal (L), no edema noted Pedal (R), no edema noted Generalized. left leg with alok. 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
--- NOTE | 2016-12-04 17:23 | Nephrology Progress Note ---
Assessment/Plan Problem List: (1) Peripheral vascular disease (2) Urinary tract infection (3) Diastolic CHF with preserved left ventricular function, NYHA class 2 (4) Status post kidney transplant (5) Syncopal episodes Plan continue current imuran and cyclosporin, Rx for uti Subjective Constitutional: Reports: weakness HEENT: Reports: no symptoms Genitourinary: Reports: incontinence Neurologic/Psychiatric: Reports: no symptoms Objective Objective Last 24 Hour Vital Signs Date Time Temp Pulse Resp B/P Pulse Ox O2 Delivery O2 Flow Rate FiO2 12/04/16 13:58 97.7 12/04/16 13:07 113/56 12/04/16 12:53 97.7 78 19 113/56 97 Room Air 12/04/16 08:59 97.0 12/04/16 08:58 97.0 82 19 126/61 100 Room Air 12/04/16 08:03 87 123/51 12/04/16 07:30 98.1 12/04/16 06:00 123/51 12/04/16 00:00 98.1 87 19 133/74 98 Room Air 12/03/16 20:45 119/55 12/03/16 20:00 97.2 80 18 119/55 96 Room Air Intake and Output 12/03/16 12/04/16 19:00 07:00 Intake Total 55 ml 240 ml Balance 55 ml 240 ml Intake Oral 240 ml IV Total 55 ml # Voids 2 3 Height (Feet): 5 Height (Inches): 6.00 Weight (Pounds): 150 General Appearance: no apparent distress, confused EENT: normal ENT inspection, other - fading eccymoses Cardiovascular: normal rate, regular rhythm Respiratory/Chest: lungs clear, normal breath sounds Abdomen: soft, no organomegaly Extremities: other - amputee APURVA ROBERTSON Dec 04, 2016 17:23
[2016-12-04] MEDS: cefTRIAXone 1 GM in D5W 55 ML IVPB SCH (17:41)
[2016-12-04 20:00] VITALS: BP 127/60
[2016-12-05 04:00] VITALS: BP 119/61
[2016-12-05] MEDS: HydrALAZINE 25mg tab ORAL SCH ×3 (06:00→20:49)
--- NOTE | 2016-12-05 06:00 | Progress Note ---
DATE: 12/04/2016 CARDIOLOGY PROGRESS NOTE: SUBJECTIVE: Complained of pain of her left leg. She is not short of breath and has no chest pain. Her pacemaker was interrogated today and noted to have appropriate function with no arrhythmias . OBJECTIVE: VITAL SIGNS: Blood pressure 113/56, pulse 78, and respirations 19. Afebrile. NECK: Supple. LUNGS: Clear. CARDIAC: Regular. Normal S1, S2. ABDOMEN: Soft. EXTREMITIES: Right above-knee amputation. Left leg wound site with bruising. IMPRESSION: 1. Urinary tract infection. 2. Sepsis. 3. Toxic encephalopathy. 4. Blurred contusion with acute pain. 5. Diabetic neuropathy. 6. Right above-knee amputation. 7. Permanent pacemaker with stable function. 8. Hypertensive heart disease with controlled blood pressure. PLAN: 1. Antibiotics. 2. Pain control. 3. Titrate insulin and antihypertensive therapy. Matthew Tinajero M.D. DR: NGOZI JOB#: [id number] CC:
[2016-12-05] MEDS: NovoLOG Insulin Flexpen SUBQ SCH ×4 (06:12→20:48)
--- NOTE | 2016-12-05 08:31 | General Progress Note ---
Assessment/Plan Problem List: (1) Encephalopathy acute ICD Codes: G93.40 - Encephalopathy acute SNOMED: 8544237 (2) Dehydration ICD Codes: E86.0 - Dehydration SNOMED: 73689919 (3) Urinary tract infection (4) Diastolic CHF with preserved left ventricular function, NYHA class 2 ICD Codes: I50.30 - Unspecified diastolic (congestive) heart failure SNOMED: 211578576, 144119824, 948206251, 163671476 (5) Incontinence of urine in female ICD Codes: R32 - Unspecified urinary incontinence SNOMED: 075495628 (6) Kidney transplanted ICD Codes: Z94.0 - Kidney transplanted SNOMED: 716441693 Assessment/Plan xray left hip/leg/knee noted abx adjusted wound care follow up cultures- gnr pain rx kidney transplant meds per renal cards follow up pain meds adjusted. ortho eval pending will likely need snf. Subjective ROS Limited/Unobtainable: No Constitutional: Reports: malaise, weakness HEENT: Reports: no symptoms Cardiovascular: Reports: no symptoms Respiratory: Reports: no symptoms Gastrointestinal/Abdominal: Reports: no symptoms Genitourinary: Reports: no symptoms Neurologic/Psychiatric: Reports: anxiety, pre-existing deficit Endocrine: Reports: no symptoms Hematologic/Lymphatic: Reports: no symptoms Allergies: Coded Allergies: No Known Allergies (Verified , 05/29/09) All Systems: reviewed and negative except above Subjective c/o generalized pain, especially left leg. wound consult noted. no chest pain no sob. per pt pain poorly controlled. on dilaudid iv. xrays noted. ucx with esbl kleb Objective Last 24 Hour Vital Signs Date Time Temp Pulse Resp B/P Pulse Ox O2 Delivery O2 Flow Rate FiO2 12/05/16 06:00 119/61 12/05/16 04:00 97.8 79 18 119/61 96 Room Air 12/04/16 21:42 113/56 12/04/16 20:00 96.8 80 22 127/60 95 Room Air 12/04/16 13:58 97.7 12/04/16 13:07 113/56 12/04/16 12:53 97.7 78 19 113/56 97 Room Air 12/04/16 08:59 97.0 12/04/16 08:58 97.0 82 19 126/61 100 Room Air Intake and Output 12/04/16 12/05/16 19:00 07:00 Intake Total 240 ml 560 ml Balance 240 ml 560 ml Intake Oral 240 ml 560 ml # Voids 1 1 # Bowel Movements 1 Height (Feet): 5 Height (Inches): 6.00 Weight (Pounds): 150 Objective General Appearance: WD/WN, alert Neck: supple Cardiovascular: regular rhythm Respiratory/Chest: chest wall non-tender, lungs clear, normal breath sounds, no respiratory distress Abdomen: normal bowel sounds, non tender, soft, no organomegaly Edema: no edema noted Arm (L), no edema noted Arm (R), no edema noted Leg (L), no edema noted Leg (R), no edema noted Pedal (L), no edema noted Pedal (R), no edema noted Generalized. left leg with alok. 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
[2016-12-05 08:35] VITALS: BP 145/69
[2016-12-05] MEDS: cycloSPORINE 25mg cap ORAL SCH ×2 (08:45→17:39)
[2016-12-05] MEDS: Ascorbic Acid 500mg tab ORAL SCH (08:45)
[2016-12-05] MEDS: azaTHIOprine 50 MG TAB ORAL SCH (08:46)
[2016-12-05] MEDS: Furosemide 40mg tab ORAL SCH (08:47)
[2016-12-05] MEDS: Docusate 100mg cap ORAL SCH ×2 (08:47→17:38)
[2016-12-05] MEDS: Aspirin EC 81mg tab ORAL SCH (08:47)
[2016-12-05] MEDS: Heparin 5000 units/ml inj SUBQ SCH ×2 (08:48→20:50)
[2016-12-05] MEDS: MS Contin 15mg tab ORAL SCH ×2 (08:49→20:49)
[2016-12-05] MEDS: Lyrica 50mg cap ORAL SCH ×2 (08:49→17:38)
[2016-12-05] MEDS: HYDROmorphone 1mg/ml Carpuject IVP PRN ×3 (10:55→18:53)
[2016-12-05] MEDS: Piperacillin/Tazobactam 3.375 GM in D5W 110 ML IVPB SCH ×2 (11:33→21:02)
[2016-12-05 12:30] VITALS: BP 146/67
[2016-12-05 20:00] VITALS: BP 146/56
--- NOTE | 2016-12-05 20:24 | Nephrology Progress Note ---
Assessment/Plan Problem List: (1) Peripheral vascular disease (2) Urinary tract infection (3) Diastolic CHF with preserved left ventricular function, NYHA class 2 (4) Status post kidney transplant (5) Syncopal episodes Plan continue current imuran and cyclosporin, Rx for uti change to zosyn per sensitivities Subjective Constitutional: Reports: weakness HEENT: Reports: no symptoms Genitourinary: Reports: incontinence Neurologic/Psychiatric: Reports: no symptoms Objective Objective Last 24 Hour Vital Signs Date Time Temp Pulse Resp B/P Pulse Ox O2 Delivery O2 Flow Rate FiO2 12/05/16 15:35 97.0 12/05/16 13:48 146/67 12/05/16 12:30 97.0 90 19 146/67 98 12/05/16 09:48 97.8 12/05/16 09:48 97.8 12/05/16 08:47 79 119/61 12/05/16 08:35 96.1 85 19 145/69 96 Room Air 12/05/16 06:00 119/61 12/05/16 04:00 97.8 79 18 119/61 96 Room Air 12/04/16 21:42 113/56 Intake and Output 12/04/16 12/05/16 19:00 07:00 Intake Total 240 ml 560 ml Balance 240 ml 560 ml Intake Oral 240 ml 560 ml # Voids 1 1 # Bowel Movements 1 Height (Feet): 5 Height (Inches): 6.00 Weight (Pounds): 150 General Appearance: no apparent distress, alert EENT: PERRL/EOMI, other - fading eccymoses Neck: normal alignment Cardiovascular: normal rate Respiratory/Chest: lungs clear Abdomen: non tender, soft Extremities: other - amputee APURVA ROBERTSON Dec 05, 2016 20:24
--- NOTE | 2016-12-05 23:08 | Consultation ---
DATE OF CONSULTATION: CONSULTING PHYSICIAN: Lazaro Hebert M.D. REASON FOR CONSULTATION: Left femur fracture. HISTORY OF PRESENT ILLNESS: The patient is a 76-year-old female, who was seen in consultation. The patient has history of having had a left distal femur fracture for which she had surgery. She was subsequently seen for syncope and was admitted for further evaluation and treatment. The patient cannot relate history of her surgery. So, it is unclear as to when she had the surgery done. She continues to report pain in the left lower extremity. PAST MEDICAL HISTORY: Significant for kidney transplant. PAST SURGICAL HISTORY: Right [id number] amputation. CURRENT MEDICATIONS: Well documented in medical chart. ALLERGIES: No known drug allergies. PHYSICAL EXAMINATION: GENERAL: This is an elderly female, evaluated in the hospital bed, in no acute distress. VITAL SIGNS: Temperature 96.1 degrees, pulse 85, and blood pressure 145/69. EXTREMITIES: Evaluation of the left lower extremity reveals she has multiple incisions around the left knee as well as one more proximal incision along the anterior aspect of the left thigh. All incisions are clean, dry, and intact. There is no erythema. Thigh itself is soft. She has about 40-degree arc range of motion of left knee. The calf is soft. She has intact motor and sensory function in the left foot. DIAGNOSTIC DATA: X-rays were reviewed. X-ray showed a left distal femur fracture, which was fixed with an intramedullary carlo with multiple locking screws distally and one proximal interlocking screw. One of screw was prominent along the posterior medial aspect of the knee joint. IMPRESSION AND PLAN: Left distal femur fracture, status post fixation with an intramedullary carlo. At the present time, fracture is well fixed. My recommendation is nonweightbearing. It is unclear as to when she had surgery, but it does appear that the alok can be removed. So, I will put an order to have the alok removed. Physical therapy can be started for range of motion of the left knee. Ideally, we can find out who did the surgery so that the patient can have followup with the surgeon. There is one prominent screw, but at the present time, I would not recommend doing anything for that. The patient can have outpatient followup when she is ready for discharge from the hospital. Lazaro s Jennifer Hebert DR: Marly JOB#: [id number] CC:
--- NOTE | 2016-12-05 23:08 | Progress Note ---
DATE: 12/05/2016 SUBJECTIVE: Pacemaker was interrogated yesterday and functioning appropriately. The patient has no new complaints, but still has significant pain over her left leg and hip. OBJECTIVE: VITAL SIGNS: Blood pressure 119/61, pulse 79, respiratory rate 18, afebrile, and oxygen saturation on air 96%. NECK: Supple. LUNGS: Clear. CARDIAC: Regular. ABDOMEN: Soft. EXTREMITIES: Right BKA, left leg with bruising. IMPRESSION: 1. Urinary tract infection, multidrug resistant with sepsis. 2. Toxic encephalopathy. 3. Left leg contusion and acute pain. 4. Permanent pacemaker. 5. Hypertensive heart disease. 6. Chronic diastolic congestive heart failure. 7. Severe peripheral artery disease with adequate peripheral perfusion presently. 8. Renal transplant. PLAN: 1. Antibiotics. 2. Immunosuppressive. 3. Pain control. 4. Followup laboratory studies. 5. Monitor cardiorenal parameters. Matthew Tinajero M.D. DR: KAM JOB#: [id number] CC:
[2016-12-06 04:00] VITALS: BP 157/76
[2016-12-06] MEDS: Piperacillin/Tazobactam 3.375 GM in D5W 110 ML IVPB SCH ×3 (05:13→21:59)
[2016-12-06] MEDS: HydrALAZINE 25mg tab ORAL SCH ×4 (06:00→21:57)
[2016-12-06] MEDS: NovoLOG Insulin Flexpen SUBQ SCH ×4 (06:30→21:00)
[2016-12-06 07:46] LABS: BASOPHILS % (AUTO) 0.8 % (0.0-2.0); EOSINOPHILS % (AUTO) 2.5 % (0.0-3.0); LYMPHOCYTES % (AUTO) 35.6 % (20.0-45.0); MEAN CORPUSCULAR HEMOGLOBIN 30.8 PG (27.0-31.0); MEAN CORPUSCULAR HGB CONC 32.5 G/DL (32.0-36.0); MEAN CORPUSCULAR VOLUME 95 FL (80-99); MEAN PLATELET VOLUME 8.2 FL (6.5-10.1); MONOCYTES % (AUTO) 3.8 % (1.0-10.0); NEUTROPHILS % (AUTO) 57.3 % (45.0-75.0); PLATELET COUNT 217 K/UL (150-450); RED BLOOD COUNT 3.31 M/UL (4.20-5.40); RED CELL DISTRIBUTION WIDTH 13.3 % (11.6-14.8); WHITE BLOOD COUNT 4.9 K/UL (4.8-10.8)
[2016-12-06 08:10] LABS: ANION GAP 16 (5-15); CALCIUM 9.8 mg/dL (8.6-10.2); CARBON DIOXIDE 27 mEQ/L (20-30); CHLORIDE 99 mEQ/L (98-107); HEMOLYSIS 5; POTASSIUM 4.1 mEQ/L (3.4-4.9); SODIUM 142 mEQ/L (135-145)
--- NOTE | 2016-12-06 08:31 | General Progress Note ---
Assessment/Plan Problem List: (1) Encephalopathy acute ICD Codes: G93.40 - Encephalopathy acute SNOMED: 7409760 (2) Dehydration ICD Codes: E86.0 - Dehydration SNOMED: 41439056 (3) Urinary tract infection (4) Diastolic CHF with preserved left ventricular function, NYHA class 2 ICD Codes: I50.30 - Unspecified diastolic (congestive) heart failure SNOMED: 599115638, 901822422, 419841910, 754855962 (5) Incontinence of urine in female ICD Codes: R32 - Unspecified urinary incontinence SNOMED: 014328654 (6) Kidney transplanted ICD Codes: Z94.0 - Kidney transplanted SNOMED: 906806773 Status: stable, progressing Assessment/Plan xray left hip/leg/knee noted abx adjusted wound care iv abx pain rx kidney transplant meds per renal cards follow up pain meds adjusted. ortho appreciated pt/ot will likely need snf. Subjective ROS Limited/Unobtainable: No Constitutional: Reports: malaise, weakness HEENT: Reports: no symptoms Cardiovascular: Reports: no symptoms Respiratory: Reports: no symptoms Gastrointestinal/Abdominal: Reports: no symptoms Genitourinary: Reports: no symptoms Neurologic/Psychiatric: Reports: no symptoms Endocrine: Reports: no symptoms Hematologic/Lymphatic: Reports: no symptoms Allergies: Coded Allergies: No Known Allergies (Verified , 05/29/09) All Systems: reviewed and negative except above Subjective c/o generalized pain, especially left leg. wound consult noted. no chest pain no sob. per pt pain poorly controlled. on dilaudid iv. xrays noted. ucx with esbl kleb alok removed. on abx Objective Last 24 Hour Vital Signs Date Time Temp Pulse Resp B/P Pulse Ox O2 Delivery O2 Flow Rate FiO2 12/06/16 04:00 97.0 82 17 157/76 100 12/05/16 20:49 146/67 12/05/16 20:00 98.2 75 16 146/56 98 Room Air 12/05/16 15:35 97.0 12/05/16 13:48 146/67 12/05/16 12:30 97.0 90 19 146/67 98 12/05/16 09:48 97.8 12/05/16 09:48 97.8 12/05/16 08:47 79 119/61 12/05/16 08:35 96.1 85 19 145/69 96 Room Air Intake and Output 12/05/16 12/06/16 18:59 06:59 Intake Total 350.0 ml 477.5 ml Output Total 600 ml Balance -250.0 ml 477.5 ml Intake Oral 240 ml 450 ml IV Total 110.0 ml 27.5 ml Output Urine Total 600 ml # Voids 3 5 # Bowel Movements 1 1 Laboratory Tests 12/06/16 05:40: White Blood Count 4.9, Red Blood Count 3.31L, Hemoglobin 10.2L, Hematocrit 31.4L , Mean Corpuscular Volume 95, Mean Corpuscular Hemoglobin 30.8, Mean Corpuscular Hemoglobin Concent 32.5, Red Cell Distribution Width 13.3, Platelet Count 217, Mean Platelet Volume 8.2, Neutrophils (%) (Auto) 57.3, Lymphocytes (% ) (Auto) 35.6, Monocytes (%) (Auto) 3.8, Eosinophils (%) (Auto) 2.5, Basophils ( %) (Auto) 0.8, Sodium Level 142, Potassium Level 4.1, Chloride Level 99, Carbon Dioxide Level 27, Anion Gap 16H, Blood Urea Nitrogen 34H, Creatinine 1.0H, Estimat Glomerular Filtration Rate , Glucose Level 93, Calcium Level 9.8 Height (Feet): 5 Height (Inches): 6.00 Weight (Pounds): 150 Objective General Appearance: WD/WN, alert Neck: supple Cardiovascular: regular rhythm Respiratory/Chest: chest wall non-tender, lungs clear, normal breath sounds, no respiratory distress Abdomen: normal bowel sounds, non tender, soft, no organomegaly Edema: no edema noted Arm (L), no edema noted Arm (R), no edema noted Leg (L), no edema noted Leg (R), no edema noted Pedal (L), no edema noted Pedal (R), no edema noted Generalized. left leg with alok. 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
[2016-12-06] MEDS: azaTHIOprine 50 MG TAB ORAL SCH (08:33)
[2016-12-06] MEDS: Furosemide 40mg tab ORAL SCH (08:33)
[2016-12-06] MEDS: Aspirin EC 81mg tab ORAL SCH (08:33)
[2016-12-06] MEDS: Ascorbic Acid 500mg tab ORAL SCH (08:34)
[2016-12-06] MEDS: Lyrica 50mg cap ORAL SCH ×2 (08:34→17:41)
[2016-12-06] MEDS: cycloSPORINE 25mg cap ORAL SCH ×2 (08:34→17:43)
[2016-12-06] MEDS: Docusate 100mg cap ORAL SCH ×2 (08:35→17:42)
[2016-12-06] MEDS: MS Contin 15mg tab ORAL SCH ×2 (08:35→21:57)
[2016-12-06] MEDS: Heparin 5000 units/ml inj SUBQ SCH ×2 (08:40→21:57)
[2016-12-06] MEDS: HYDROmorphone 1mg/ml Carpuject IVP PRN ×2 (10:39→17:43)
--- NOTE | 2016-12-06 15:32 | Nephrology Progress Note ---
Assessment/Plan Problem List: (1) Peripheral vascular disease (2) Urinary tract infection (3) Diastolic CHF with preserved left ventricular function, NYHA class 2 (4) Status post kidney transplant (5) Syncopal episodes Plan continue current imuran and cyclosporin, Rx for uti change to zosyn per sensitivities Subjective Constitutional: Reports: weakness HEENT: Reports: no symptoms Neurologic/Psychiatric: Reports: no symptoms Objective Objective Last 24 Hour Vital Signs Date Time Temp Pulse Resp B/P Pulse Ox O2 Delivery O2 Flow Rate FiO2 12/06/16 13:43 143/80 12/06/16 09:34 97.0 12/06/16 09:34 97.0 12/06/16 08:34 73 143/80 12/06/16 04:00 97.0 82 17 157/76 100 12/05/16 20:49 146/67 12/05/16 20:00 98.2 75 16 146/56 98 Room Air Intake and Output 12/05/16 12/06/16 19:00 07:00 Intake Total 350.0 ml 477.5 ml Output Total 600 ml Balance -250.0 ml 477.5 ml Intake Oral 240 ml 450 ml IV Total 110.0 ml 27.5 ml Output Urine Total 600 ml # Voids 3 5 # Bowel Movements 1 1 Laboratory Tests 12/06/16 05:40: White Blood Count 4.9, Red Blood Count 3.31L, Hemoglobin 10.2L, Hematocrit 31.4L , Mean Corpuscular Volume 95, Mean Corpuscular Hemoglobin 30.8, Mean Corpuscular Hemoglobin Concent 32.5, Red Cell Distribution Width 13.3, Platelet Count 217, Mean Platelet Volume 8.2, Neutrophils (%) (Auto) 57.3, Lymphocytes (% ) (Auto) 35.6, Monocytes (%) (Auto) 3.8, Eosinophils (%) (Auto) 2.5, Basophils ( %) (Auto) 0.8, Sodium Level 142, Potassium Level 4.1, Chloride Level 99, Carbon Dioxide Level 27, Anion Gap 16H, Blood Urea Nitrogen 34H, Creatinine 1.0H, Estimat Glomerular Filtration Rate , Glucose Level 93, Calcium Level 9.8 Height (Feet): 5 Height (Inches): 6.00 Weight (Pounds): 150 General Appearance: no apparent distress, alert EENT: normal ENT inspection Neck: normal alignment Cardiovascular: normal rate, regular rhythm Respiratory/Chest: lungs clear Abdomen: soft, no organomegaly Extremities: other - amputee Neurologic: straightener hand II-XII grossly normal APURVA ORBERTSON Dec 06, 2016 15:32
[2016-12-06 16:00] VITALS: BP 145/70
[2016-12-06 20:00] VITALS: BP 140/70
[2016-12-07] VITALS: BP 154/81
[2016-12-07 04:00] VITALS: BP 149/77
[2016-12-07] MEDS: HydrALAZINE 25mg tab ORAL SCH ×3 (06:28→22:35)
[2016-12-07] MEDS: Piperacillin/Tazobactam 3.375 GM in D5W 110 ML IVPB SCH ×3 (06:28→22:35)
[2016-12-07] MEDS: NovoLOG Insulin Flexpen SUBQ SCH ×4 (06:30→21:00)
[2016-12-07 08:00] VITALS: BP 144/98
[2016-12-07] MEDS: Docusate 100mg cap ORAL SCH ×2 (09:00→17:44)
[2016-12-07] MEDS: Aspirin EC 81mg tab ORAL SCH (09:23)
[2016-12-07] MEDS: azaTHIOprine 50 MG TAB ORAL SCH (09:23)
[2016-12-07] MEDS: Ascorbic Acid 500mg tab ORAL SCH (09:23)
[2016-12-07] MEDS: cycloSPORINE 25mg cap ORAL SCH ×2 (09:23→17:45)
[2016-12-07] MEDS: Furosemide 40mg tab ORAL SCH (09:24)
[2016-12-07] MEDS: MS Contin 15mg tab ORAL SCH ×2 (09:24→22:34)
[2016-12-07] MEDS: Lyrica 50mg cap ORAL SCH ×2 (09:24→17:44)
[2016-12-07] MEDS: Heparin 5000 units/ml inj SUBQ SCH (09:27)
[2016-12-07] MEDS: HYDROmorphone 1mg/ml Carpuject IVP PRN ×2 (11:50→17:45)
--- NOTE | 2016-12-07 13:30 | General Progress Note ---
Assessment/Plan Problem List: (1) Encephalopathy acute ICD Codes: G93.40 - Encephalopathy acute SNOMED: 6505506 (2) Dehydration ICD Codes: E86.0 - Dehydration SNOMED: 57148476 (3) Urinary tract infection (4) Diastolic CHF with preserved left ventricular function, NYHA class 2 ICD Codes: I50.30 - Unspecified diastolic (congestive) heart failure SNOMED: 539095229, 745225346, 555014959, 230895017 (5) Incontinence of urine in female ICD Codes: R32 - Unspecified urinary incontinence SNOMED: 236345662 (6) Kidney transplanted ICD Codes: Z94.0 - Kidney transplanted SNOMED: 371529561 Status: stable, progressing Assessment/Plan xarelto started check kub- ?ivc filter pain rx iv abx transplant meds per renal bp rx per cards pt/ot as able snf placement possible for tomorrow. Subjective ROS Limited/Unobtainable: No Constitutional: Reports: malaise, weakness HEENT: Reports: no symptoms Cardiovascular: Reports: no symptoms Respiratory: Reports: no symptoms Gastrointestinal/Abdominal: Reports: no symptoms Genitourinary: Reports: no symptoms Neurologic/Psychiatric: Reports: no symptoms Endocrine: Reports: no symptoms Hematologic/Lymphatic: Reports: anemia Allergies: Coded Allergies: No Known Allergies (Verified , 05/29/09) All Systems: reviewed and negative except above Subjective pain better controlled. resting . on iv abx. +dvt on venous miri Objective Last 24 Hour Vital Signs Date Time Temp Pulse Resp B/P Pulse Ox O2 Delivery O2 Flow Rate FiO2 12/07/16 13:27 144/98 12/07/16 12:20 96.8 12/07/16 10:23 96.8 12/07/16 09:23 75 144/98 12/07/16 08:00 96.8 75 18 144/98 98 Room Air 12/07/16 06:28 149/77 12/07/16 04:00 97.5 82 22 149/77 100 Room Air 12/07/16 00:00 97.2 88 22 154/81 99 Room Air 12/06/16 21:57 140/70 12/06/16 20:00 96.0 82 22 140/70 100 Room Air 12/06/16 16:00 97.9 85 18 145/70 100 Room Air 12/06/16 13:43 143/80 Intake and Output 12/06/16 12/07/16 19:00 07:00 Intake Total 280 ml 267.5 ml Balance 280 ml 267.5 ml Intake Oral 280 ml 240 ml IV Total 27.5 ml # Voids 2 # Bowel Movements 2 1 Height (Feet): 5 Height (Inches): 6.00 Weight (Pounds): 150 Objective General Appearance: WD/WN, alert Neck: supple Cardiovascular: regular rhythm Respiratory/Chest: chest wall non-tender, lungs clear, normal breath sounds, no respiratory distress Abdomen: normal bowel sounds, non tender, soft, no organomegaly Edema: no edema noted Arm (L), no edema noted Arm (R), no edema noted Leg (L), no edema noted Leg (R), no edema noted Pedal (L), no edema noted Pedal (R), no edema noted Generalized. left leg with alok. wound clean Neurologic: technical implementation lead II-XII grossly normal, no motor/sensory deficits, abnormal gait , alert, oriented x 3, responsive ANJUM BUCHANAN Dec 07, 2016 13:30
--- NOTE | 2016-12-07 14:01 | Nephrology Progress Note ---
Assessment/Plan Assessment 1) ESRD s/p DDKT 2) UTI caused by E. coli and Kl;ebsiella plan: Continue IV ATB Will need renal TXP US Subjective Subjective She is doing better, no c/p or sob, no n/v, some pain on transplanted kidney Objective Objective Last 24 Hour Vital Signs Date Time Temp Pulse Resp B/P Pulse Ox O2 Delivery O2 Flow Rate FiO2 12/07/16 13:27 144/98 12/07/16 12:20 96.8 12/07/16 10:23 96.8 12/07/16 09:23 75 144/98 12/07/16 08:00 96.8 75 18 144/98 98 Room Air 12/07/16 06:28 149/77 12/07/16 04:00 97.5 82 22 149/77 100 Room Air 12/07/16 00:00 97.2 88 22 154/81 99 Room Air 12/06/16 21:57 140/70 12/06/16 20:00 96.0 82 22 140/70 100 Room Air 12/06/16 16:00 97.9 85 18 145/70 100 Room Air Intake and Output 12/06/16 12/07/16 19:00 07:00 Intake Total 280 ml 267.5 ml Balance 280 ml 267.5 ml Intake Oral 280 ml 240 ml IV Total 27.5 ml # Voids 2 # Bowel Movements 2 1 Height (Feet): 5 Height (Inches): 6.00 Weight (Pounds): 150 General Appearance: WD/WN, no apparent distress, alert EENT: PERRL/EOMI Neck: non-tender Cardiovascular: normal rate, regular rhythm, no JVD Respiratory/Chest: lungs clear, normal breath sounds Abdomen: non tender, other - some pain on the R transplanted kidney Extremities: non-tender 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
[2016-12-07] MEDS: Xarelto 15mg tab ORAL SCH ×2 (14:24→22:34)
[2016-12-07 16:00] VITALS: BP 142/80
--- NOTE | 2016-12-07 17:38 | Progress Note ---
DATE: 12/06/2016 CARDIOLOGY PROGRESS NOTE SUBJECTIVE: The patient complaints of pain over the left leg. She denies chest pain or shortness of breath. She continues on IV antibiotics. Shayan have been removed from the left leg. OBJECTIVE: VITAL SIGNS: Blood pressure 157/76, pulse 82, respiratory rate 17. LUNGS: Clear. CARDIAC: Regular. Normal S1 and S2. ABDOMEN: Soft. EXTREMITIES: Right BKA stump dry. Left leg with no edema and decreased ecchymoses noted. LABORATORY AND DIAGNOSTIC DATA: White count 4.9 and hemoglobin 10.2. BUN 34, creatinine 1.0 and potassium 4.1. IMPRESSION: 1. Permanent pacemaker with stable function. 2. Hypertensive heart disease, now with elevated blood pressure, which may be due to pain. 3. Renal transplant. 4. Right below knee amputation. 5. Chronic diastolic congestive heart failure. 6. History of syncope likely vasovagally mediated. 7. Urinary tract infection with extended-spectrum beta-lactamases in pathogen. 8. Toxic encephalopathy. PLAN: 1. Pain control. 2. Skin care. 3. Monitor cardiorenal parameters and titrate antihypertensive and anti-failure regimen accordingly. 4. Avoid tight blood pressure control in view of orthostatic risk. 5. Continue IV antibiotics. Matthew Tinajero M.D. DR: VIJAY JOB#: [id number] CC:
[2016-12-07 20:00] VITALS: BP 141/71
[2016-12-08] VITALS: BP 130/74
[2016-12-08] MEDS: HYDROmorphone 1mg/ml Carpuject IVP PRN ×4 (00:36→22:18)
[2016-12-08 04:00] VITALS: BP 143/79
[2016-12-08] MEDS: NovoLOG Insulin Flexpen SUBQ SCH ×4 (06:09→22:19)
[2016-12-08] MEDS: Piperacillin/Tazobactam 3.375 GM in D5W 110 ML IVPB SCH ×3 (06:09→22:17)
[2016-12-08] MEDS: HydrALAZINE 25mg tab ORAL SCH ×3 (06:09→22:18)
[2016-12-08 08:12] VITALS: BP 147/76
[2016-12-08] MEDS: Xarelto 15mg tab ORAL SCH ×2 (08:38→22:18)
[2016-12-08] MEDS: azaTHIOprine 50 MG TAB ORAL SCH (08:38)
[2016-12-08] MEDS: Ascorbic Acid 500mg tab ORAL SCH (08:38)
[2016-12-08] MEDS: Docusate 100mg cap ORAL SCH ×2 (08:39→17:11)
[2016-12-08] MEDS: Lyrica 50mg cap ORAL SCH ×2 (08:39→17:11)
[2016-12-08] MEDS: MS Contin 15mg tab ORAL SCH (08:39)
[2016-12-08] MEDS: cycloSPORINE 25mg cap ORAL SCH ×2 (08:46→17:11)
--- NOTE | 2016-12-08 09:50 | General Progress Note ---
Assessment/Plan Problem List: (1) Encephalopathy acute ICD Codes: G93.40 - Encephalopathy acute SNOMED: 2951204 (2) Dehydration ICD Codes: E86.0 - Dehydration SNOMED: 06304529 (3) Urinary tract infection (4) Diastolic CHF with preserved left ventricular function, NYHA class 2 ICD Codes: I50.30 - Unspecified diastolic (congestive) heart failure SNOMED: 011726289, 625655195, 904302887, 329821112 (5) Incontinence of urine in female ICD Codes: R32 - Unspecified urinary incontinence SNOMED: 334134723 (6) Kidney transplanted ICD Codes: Z94.0 - Kidney transplanted SNOMED: 187846855 Status: stable, progressing Assessment/Plan xarelto started check kub- ?ivc filter pain rx iv abx transplant meds per renal bp rx per cards pt/ot as able d/w PT- snf or aru recommended. Pt refusing snf. plans to go back home(pts own home- not sons) Subjective ROS Limited/Unobtainable: No Constitutional: Reports: malaise, weakness HEENT: Reports: no symptoms Cardiovascular: Reports: no symptoms Respiratory: Reports: no symptoms Gastrointestinal/Abdominal: Reports: no symptoms Genitourinary: Reports: no symptoms Neurologic/Psychiatric: Reports: no symptoms Endocrine: Reports: no symptoms Hematologic/Lymphatic: Reports: anemia Allergies: Coded Allergies: No Known Allergies (Verified , 05/29/09) All Systems: reviewed and negative except above Subjective pain better controlled. resting . on iv abx. +dvt on venous miri. on xarelto. pain- difficult to control Objective Last 24 Hour Vital Signs Date Time Temp Pulse Resp B/P Pulse Ox O2 Delivery O2 Flow Rate FiO2 12/08/16 08:39 89 147/76 12/08/16 08:12 97.2 89 18 147/76 100 Room Air 12/08/16 06:09 143/79 12/08/16 04:00 97.4 92 18 143/79 99 Room Air 12/08/16 01:06 97.5 12/08/16 00:00 97.2 90 18 130/74 99 12/07/16 23:33 97.5 12/07/16 22:35 141/71 12/07/16 20:00 97.5 81 18 141/71 100 Room Air 12/07/16 16:00 97.4 78 18 142/80 98 Room Air 12/07/16 13:27 144/98 Intake and Output 12/07/16 12/08/16 18:59 06:59 Intake Total 300 ml 787.5 ml Balance 300 ml 787.5 ml Intake Oral 300 ml 760 ml IV Total 27.5 ml # Voids 2 # Bowel Movements 2 Height (Feet): 5 Height (Inches): 6.00 Weight (Pounds): 150 Objective General Appearance: WD/WN, alert Neck: supple Cardiovascular: regular rhythm Respiratory/Chest: chest wall non-tender, lungs clear, normal breath sounds, no respiratory distress Abdomen: normal bowel sounds, non tender, soft, no organomegaly Edema: no edema noted Arm (L), no edema noted Arm (R), no edema noted Leg (L), no edema noted Leg (R), no edema noted Pedal (L), no edema noted Pedal (R), no edema noted Generalized. left leg with alok. 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
[2016-12-08 10:09] LABS: BASOPHILS % (AUTO) 0.6 % (0.0-2.0); EOSINOPHILS % (AUTO) 1.9 % (0.0-3.0); LYMPHOCYTES % (AUTO) 22.8 % (20.0-45.0); MEAN CORPUSCULAR HEMOGLOBIN 30.5 PG (27.0-31.0); MEAN CORPUSCULAR HGB CONC 31.8 G/DL (32.0-36.0); MEAN CORPUSCULAR VOLUME 96 FL (80-99); MEAN PLATELET VOLUME 8.9 FL (6.5-10.1); MONOCYTES % (AUTO) 6.9 % (1.0-10.0); NEUTROPHILS % (AUTO) 67.8 % (45.0-75.0); PLATELET COUNT 196 K/UL (150-450); RED BLOOD COUNT 3.45 M/UL (4.20-5.40); RED CELL DISTRIBUTION WIDTH 13.8 % (11.6-14.8); WHITE BLOOD COUNT 4.8 K/UL (4.8-10.8)
[2016-12-08 10:19] LABS: ALANINE AMINOTRANSFERASE 10 U/L (3-33); ALBUMIN/GLOBULIN RATIO 0.6 (1.0-2.7); ANION GAP 15 (5-15); ASPARTATE AMINO TRANSFERASE 21 U/L (5-40); CALCIUM 9.4 mg/dL (8.6-10.2); CARBON DIOXIDE 27 mEQ/L (20-30); CHLORIDE 99 mEQ/L (98-107); CREATININE 0.9 mg/dL (0.5-0.9); HEMOLYSIS 5; MAGNESIUM 1.3 mg/dL (1.7-2.5); POTASSIUM 3.9 mEQ/L (3.4-4.9); SODIUM 141 mEQ/L (135-145); TOTAL PROTEIN 7.1 g/dL (6.6-8.7)
[2016-12-08 12:00] VITALS: BP 145/76
--- NOTE | 2016-12-08 12:41 | Diagnostic Imaging Report ---
Indication: Abdominal pain Comparison: None Single view of the abdomen obtained Findings: Bowel gas pattern is nonspecific. No mass, ectopic calcifications, or abnormal gas collections are identified. Vascular calcifications are present. Cholecystectomy clips noted in the right upper quadrant of abdomen. Generalized osteopenia and degenerative changes of the spine noted. Left femoral neck davis pins are noted. Impression: No acute findings
--- NOTE | 2016-12-08 13:34 | Wound Care Consultation ---
Wound Assessment Wound Assessment #1: Wound Number: #1 Wound Present on Admission: Yes New Wound: No Status Change of Wound: No Wound Location Body Site Modif: mid Wound Location Body Site: sacral Wound Type: scar - full thickness scattered scar tissue. Rodolfo Test: Does not Rodolfo Wound Thickness: Full Thickness Wound Drainage Amount: None Wound Drainage Odor: None/Absent Tissue Surrounding Wound: Intact Wound General Appearance: Open to air Wound Assessment #2: Wound Number: #2 Wound Present on Admission: Yes New Wound: No Status Change of Wound: No Wound Location Body Site Modif: left Wound Location Body Site: trochanter Wound Type: pressure ulcer Rodolfo Test: Does not Rodolfo Pressure Ulcer Stage: IV/unstageable Wound Thickness: Full Thickness Wound Length: 1.0 Wound Width: 4.0 Wound Depth: utd Percent of Wound [place]/Red: 30 Percent of Wound Bed Yellow/Wh: 70 Wound Drainage Description: Serosanguineous Wound Drainage Amount: Scant Wound Drainage Odor: None/Absent Tissue Surrounding Wound: Macerated Wound General Appearance: Reddened, Necrotic Wound Assessment #3: Wound Number: #3 Wound Present on Admission: Yes New Wound: No Status Change of Wound: No Wound Location Body Site: perineal area Wound Type: chemical burn Rodolfo Test: Does not Rodolfo Percent of Wound [place]/Red: 100 Wound Drainage Amount: None Wound Drainage Odor: None/Absent Tissue Surrounding Wound: Erythemic Wound General Appearance: Reddened, Open to air Wound Assessment #4: Wound Number: #4 Wound Present on Admission: Yes New Wound: No Status Change of Wound: No Wound Location Body Site Modif: left Wound Location Body Site: toe - 1st toe Wound Type: scab Rodolfo Test: Does not Rodolof Wound Thickness: Full Thickness Percent of Wound Bed Yellow/Wh: 100 - dry thick scab Wound Drainage Amount: None Wound Drainage Odor: None/Absent Tissue Surrounding Wound: Intact Wound Assessment #5: Wound Number: #5 Wound Present on Admission: Yes New Wound: No Status Change of Wound: No Wound Location Body Site Modif: right Wound Location Body Site: trochanter Wound Type: scar - full thickness scar tissue Rodolfo Test: Does not Rodolfo Wound Thickness: Full Thickness Wound Length: 1.5 Wound Width: 2.5 Wound Drainage Amount: None Wound Drainage Odor: None/Absent Tissue Surrounding Wound: Intact Wound General Appearance: Open to air, Clean/Dry Wound Assessment #6: Wound Number: #6 Wound Present on Admission: Yes New Wound: No Status Change of Wound: No Wound Location Body Site Modif: right Wound Location Body Site: buttocks Wound Type: scar - full thickness scar tissue Rodolfo Test: Does not Rodolfo Wound Drainage Amount: None Wound Drainage Odor: None/Absent Tissue Surrounding Wound: Intact Wound General Appearance: Clean/Dry Wound Comment #1 Mid sacral scattered full thickness scar tissue.- skin remains intact. #2 Left trochanter stage IV/Unstageable. - noted with good progress decrease in size, decrease in slough, noted 30% pink to wound bed , no foul odor, no s/s of infection. #3 Perineal chemical burn- noted light red in color , no further deterioration present. #4 Left 1st toe dry adhered scab- no further deterioration present , remains dry and intact. #5 Right trochanter full thickness scar tissue -skin remains intact. #6 Right buttock full thickness scar tissue - skin remains intact. #7 left knee s/p surgical site noted with dry and intact steristrips. upon reassessment , noted good progress, no further deterioration present, current wound care treatment remains effective. Continue to provide local wound care, turn and reposition, keep clean and dry, optimize nutrition, continue pressure relief mattress as ordered. MATT FRANCO Dec 08, 2016 13:33
--- NOTE | 2016-12-08 14:20 | Nephrology Progress Note ---
Assessment/Plan Assessment 1) ESRD s/p DDKT 2) UTI caused by E. coli and Klebsiella plan: Continue IV ATB Awaiting renal TXP US Subjective Subjective She is doing status quo, creat is 0.9, no c/p or sob Objective Objective Last 24 Hour Vital Signs Date Time Temp Pulse Resp B/P Pulse Ox O2 Delivery O2 Flow Rate FiO2 12/08/16 13:46 145/76 12/08/16 12:00 97.0 85 18 145/76 100 Room Air 12/08/16 11:53 97.2 12/08/16 09:38 97.2 12/08/16 08:39 89 147/76 12/08/16 08:12 97.2 89 18 147/76 100 Room Air 12/08/16 06:09 143/79 12/08/16 04:00 97.4 92 18 143/79 99 Room Air 12/08/16 00:00 97.2 90 18 130/74 99 12/07/16 22:35 141/71 12/07/16 20:00 97.5 81 18 141/71 100 Room Air 12/07/16 16:00 97.4 78 18 142/80 98 Room Air Intake and Output 12/07/16 12/08/16 19:00 07:00 Intake Total 300 ml 787.5 ml Balance 300 ml 787.5 ml Intake Oral 300 ml 760 ml IV Total 27.5 ml # Voids 2 # Bowel Movements 2 Laboratory Tests 12/08/16 09:42: White Blood Count 4.8, Red Blood Count 3.45L, Hemoglobin 10.5L, Hematocrit 33.0L , Mean Corpuscular Volume 96, Mean Corpuscular Hemoglobin 30.5, Mean Corpuscular Hemoglobin Concent 31.8L, Red Cell Distribution Width 13.8, Platelet Count 196, Mean Platelet Volume 8.9, Neutrophils (%) (Auto) 67.8, Lymphocytes (%) (Auto) 22.8, Monocytes (%) (Auto) 6.9, Eosinophils (%) (Auto) 1.9, Basophils (%) (Auto) 0.6, Sodium Level 141, Potassium Level 3.9, Chloride Level 99, Carbon Dioxide Level 27, Anion Gap 15, Blood Urea Nitrogen 28H, Creatinine 0.9, Estimat Glomerular Filtration Rate , Glucose Level 155H, Calcium Level 9.4, Magnesium Level 1.3L, Total Bilirubin 0.4, Aspartate Amino Transf (AST/SGOT) 21, Alanine Aminotransferase (ALT/SGPT) 10, Alkaline Phosphatase 101, Pro-B-Type Natriuretic Peptide 716H, Total Protein 7.1, Albumin 2.9L, Globulin 4.2, Albumin/Globulin Ratio 0.6L Height (Feet): 5 Height (Inches): 6.00 Weight (Pounds): 150 General Appearance: WD/WN, no apparent distress EENT: PERRL/EOMI Neck: non-tender, normal alignment Cardiovascular: normal rate, no JVD Respiratory/Chest: chest wall non-tender, lungs clear Abdomen: normal bowel sounds, non tender 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
--- NOTE | 2016-12-08 15:20 | Progress Note ---
DATE: 12/07/2016 SUBJECTIVE: More alert. Interactive. No shortness of breath, nausea ,or vomiting. She continues to have left leg pain. OBJECTIVE: VITAL SIGNS: Blood pressure 144/98, pulse 75, and respiratory rate 18. NECK: Supple. LUNGS: Clear. CARDIAC: Regular rhythm and rate. Normal S1, S2. EXTREMITIES: Right BKA. Trace edema on the left with ecchymosis. IMPRESSION: 1. Metabolic and toxic encephalopathies. 2. Lower extremity deep venous thrombosis. 3. Right below-knee amputation. 4. Contusion, left leg. 5. Pacemaker. 6. Hypertensive heart disease with elevated blood pressure trend. 7. Acute on chronic diastolic congestive heart failure. PLAN: 1. Recheck laboratory studies. 2. Titrate cardiovascular regimen based on clinical parameters. 3. Complete antibiotic course. 4. Immunosuppressive therapy. We would do dose adjustments. Matthew Tinajero M.D. DR: SUYAPA JOB#: [id number] CC:
[2016-12-08 16:00] VITALS: BP 141/76
[2016-12-08 20:00] VITALS: BP 143/79
[2016-12-09] VITALS: BP 131/68
[2016-12-09 04:00] VITALS: BP 139/74
--- NOTE | 2016-12-09 06:08 | Progress Note ---
DATE: 12/08/2016 CARDIOLOGY PROGRESS NOTE SUBJECTIVE: The patient is more awake, alert and less confused. Pain is improving. OBJECTIVE: VITAL SIGNS: Blood pressure 131/68, pulse 84, respirations 18, and afebrile. NECK: Supple. LUNGS: Clear. CARDIAC: Regular rhythm and rate. Normal S1 and S2. ABDOMEN: Soft. EXTREMITIES: Right BKA and left leg with bruising, but no bleed. No open wounds. LABORATORY AND DIAGNOSTIC DATA: Abdominal x-ray without any acute process. White count 4.8 and hemoglobin 10.5. Potassium 3.9, BUN 28, and creatinine 0.8. Pro-natriuretic peptide 716. Albumin 2.9. IMPRESSION: 1. Improving toxic and metabolic encephalopathy. 2. Urinary tract infection with sepsis. 3. Severe hypomagnesemia with a magnesium level 1.3. 4. Acute and chronic diastolic congestive heart failure mostly compensated peripheral artery disease. 5. Type 2 diabetes mellitus. 6. Renal transplant. 7. Immunocompromise. PLAN: 1. Antimicrobials. 2. Hydration. 3. IV magnesium. 4. Symptom guided pain control. 5. Continue current cardiovascular regimen without change. 6. Avoid tighter blood pressure control and risk of orthostatic hypotension. Matthew Tinajero M.D. DR: Chelsie JOB#: [id number] CC:
[2016-12-09] MEDS: Piperacillin/Tazobactam 3.375 GM in D5W 110 ML IVPB SCH ×3 (06:12→21:58)
[2016-12-09] MEDS: HydrALAZINE 25mg tab ORAL SCH ×3 (06:13→21:56)
[2016-12-09] MEDS: NovoLOG Insulin Flexpen SUBQ SCH ×4 (06:13→21:56)
[2016-12-09] MEDS: HYDROmorphone 1mg/ml Carpuject IVP PRN ×4 (07:21→21:58)
[2016-12-09 08:00] VITALS: BP 131/65
[2016-12-09] MEDS: cycloSPORINE 25mg cap ORAL SCH ×2 (08:20→17:25)
[2016-12-09] MEDS: Lyrica 50mg cap ORAL SCH ×2 (08:21→17:24)
[2016-12-09] MEDS: Xarelto 15mg tab ORAL SCH ×2 (08:21→21:57)
[2016-12-09] MEDS: azaTHIOprine 50 MG TAB ORAL SCH (08:21)
[2016-12-09] MEDS: Docusate 100mg cap ORAL SCH ×2 (08:22→17:25)
[2016-12-09] MEDS: Ascorbic Acid 500mg tab ORAL SCH (08:22)
[2016-12-09 12:00] VITALS: BP 141/71
--- NOTE | 2016-12-09 12:03 | General Progress Note ---
Assessment/Plan Problem List: (1) Encephalopathy acute ICD Codes: G93.40 - Encephalopathy acute SNOMED: 0077180 (2) Dehydration ICD Codes: E86.0 - Dehydration SNOMED: 81399661 (3) Urinary tract infection (4) Diastolic CHF with preserved left ventricular function, NYHA class 2 ICD Codes: I50.30 - Unspecified diastolic (congestive) heart failure SNOMED: 421793895, 977742167, 525717737, 021837648 (5) Incontinence of urine in female ICD Codes: R32 - Unspecified urinary incontinence SNOMED: 034350746 (6) Kidney transplanted ICD Codes: Z94.0 - Kidney transplanted SNOMED: 494146232 Status: stable, progressing Assessment/Plan xarelto pain rx iv abx transplant meds per renal bp rx per cards pt/ot as able d/w PT [facility]will[facility] willing to accept but they need pts to get her prosthesis. called family. they will try to get from pts house Subjective ROS Limited/Unobtainable: No Constitutional: Reports: malaise, weakness HEENT: Reports: no symptoms Cardiovascular: Reports: no symptoms Respiratory: Reports: no symptoms Gastrointestinal/Abdominal: Reports: no symptoms Genitourinary: Reports: no symptoms Neurologic/Psychiatric: Reports: pre-existing deficit Endocrine: Reports: no symptoms Hematologic/Lymphatic: Reports: no symptoms Allergies: Coded Allergies: No Known Allergies (Verified , 05/29/09) All Systems: reviewed and negative except above Subjective pain better controlled. resting . on iv abx. +dvt on venous miri. on xarelto. pain- difficult to control. no ivc filter on kub Objective Last 24 Hour Vital Signs Date Time Temp Pulse Resp B/P Pulse Ox O2 Delivery O2 Flow Rate FiO2 12/09/16 08:22 88 131/65 12/09/16 08:00 97.0 88 18 131/65 99 Room Air 12/09/16 07:51 97.6 12/09/16 06:13 139/74 12/09/16 04:00 97.6 83 18 139/74 98 Room Air 12/09/16 00:00 97.5 84 18 131/68 99 Room Air 12/08/16 22:18 143/79 12/08/16 20:00 96.9 91 19 143/79 96 Room Air 12/08/16 16:00 97.0 77 19 141/76 100 Room Air 12/08/16 13:46 145/76 Intake and Output 12/08/16 12/09/16 19:00 07:00 Intake Total 707.5 ml 682.5 ml Balance 707.5 ml 682.5 ml Intake Oral 480 ml 655 ml IV Total 227.5 ml 27.5 ml # Voids 2 2 # Bowel Movements 1 1 Height (Feet): 5 Height (Inches): 6.00 Weight (Pounds): 150 Objective General Appearance: WD/WN, alert Neck: supple Cardiovascular: regular rhythm Respiratory/Chest: chest wall non-tender, lungs clear, normal breath sounds, no respiratory distress Abdomen: normal bowel sounds, non tender, soft, no organomegaly Edema: no edema noted Arm (L), no edema noted Arm (R), no edema noted Leg (L), no edema noted Leg (R), no edema noted Pedal (L), no edema noted Pedal (R), no edema noted Generalized. left leg with alok. 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
[2016-12-09] MEDS ORDERED: LYRICA50 MG ORAL (12:52)
[2016-12-09] MEDS ORDERED: FLORINEF0.1 MG ORAL (12:52)
[2016-12-09] MEDS ORDERED: COLACE100 MG ORAL (12:52)
[2016-12-09] MEDS ORDERED: ASCORBIC ACID500 M4 ORAL (12:52)
[2016-12-09] MEDS ORDERED: NORVASC5 MG ORAL (12:52)
[2016-12-09] MEDS ORDERED: PROTONIX40 MG ORAL (12:52)
[2016-12-09] MEDS ORDERED: IMURAN50 MG ORAL (12:52)
[2016-12-09] MEDS ORDERED: HYDRALAZINE HCL25 M1 ORAL (12:52)
[2016-12-09] MEDS ORDERED: CYCLOSPORINE MO25 MG ORAL (12:52)
[2016-12-09] MEDS ORDERED: XARELTO15 MG ORAL (12:52)
[2016-12-09] MEDS ORDERED: FEOSOL325 MG ORAL (12:52)
[2016-12-09] MEDS ORDERED: HYDROMORPHO1 MG/1 M4 IVP (14:57)
--- NOTE | 2016-12-09 15:49 | Nephrology Progress Note ---
Assessment/Plan Assessment 1) ESRD s/p DDKT 2) UTI caused by E. coli and Klebsiella plan: Continue IV ATB Awaiting renal TXP US Labs in AM Subjective Subjective She is doing status quo, No abdominal pain Objective Objective Last 24 Hour Vital Signs Date Time Temp Pulse Resp B/P Pulse Ox O2 Delivery O2 Flow Rate FiO2 12/09/16 12:42 97.0 12/09/16 12:00 97.1 89 18 141/71 99 Room Air 12/09/16 08:22 88 131/65 12/09/16 08:00 97.0 88 18 131/65 99 Room Air 12/09/16 06:13 139/74 12/09/16 04:00 97.6 83 18 139/74 98 Room Air 12/09/16 00:00 97.5 84 18 131/68 99 Room Air 12/08/16 22:18 143/79 12/08/16 20:00 96.9 91 19 143/79 96 Room Air 12/08/16 16:00 97.0 77 19 141/76 100 Room Air Intake and Output 12/08/16 12/09/16 19:00 07:00 Intake Total 707.5 ml 682.5 ml Balance 707.5 ml 682.5 ml Intake Oral 480 ml 655 ml IV Total 227.5 ml 27.5 ml # Voids 2 2 # Bowel Movements 1 1 Height (Feet): 5 Height (Inches): 6.00 Weight (Pounds): 150 General Appearance: WD/WN, no apparent distress EENT: PERRL/EOMI Neck: non-tender, normal alignment Cardiovascular: normal rate, regular rhythm Respiratory/Chest: lungs clear, no respiratory distress Abdomen: non tender, soft 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
[2016-12-09 16:00] VITALS: BP 164/76
[2016-12-09] MEDS ORDERED: Tubing IV Secondary IV ONE (17:22)
[2016-12-09 20:00] VITALS: BP 123/51
[2016-12-10] VITALS: BP 153/88
[2016-12-10 04:00] VITALS: BP 145/74
--- NOTE | 2016-12-10 04:08 | Progress Note ---
DATE: 12/09/2016 CARDIOLOGY PROGRESS NOTE SUBJECTIVE: The patient's condition continues to improve. The patient needs additional mobility training. Prosthesis is being obtained and transferred to U considered. OBJECTIVE: VITAL SIGNS: Blood pressure 131/65, pulse 88, and respirations 18. LUNGS: Bilateral breath sounds. HEART: Regular rhythm and rate. Normal S1 and S2. ABDOMEN: Soft. EXTREMITIES: Left leg with no edema. Decreased bruising. Right BKA. PLAN: 1. Wound mobilization with therapist. 2. Continue current cardiovascular regimen. 3. Monitor cardiorenal parameters. 4. Anti-platelet and anti-lipid therapy. Matthew Tinajero M.D. DR: PATRICIA JOB#: [id number] CC:
[2016-12-10 04:24] LABS: BASOPHILS % (AUTO) 0.5 % (0.0-2.0); EOSINOPHILS % (AUTO) 2.7 % (0.0-3.0); LYMPHOCYTES % (AUTO) 30.1 % (20.0-45.0); MEAN CORPUSCULAR HEMOGLOBIN 31.4 PG (27.0-31.0); MEAN CORPUSCULAR HGB CONC 32.8 G/DL (32.0-36.0); MEAN CORPUSCULAR VOLUME 96 FL (80-99); MEAN PLATELET VOLUME 10.2 FL (6.5-10.1); MONOCYTES % (AUTO) 6.5 % (1.0-10.0); NEUTROPHILS % (AUTO) 60.2 % (45.0-75.0); PLATELET COUNT 176 K/UL (150-450); RED BLOOD COUNT 3.35 M/UL (4.20-5.40); RED CELL DISTRIBUTION WIDTH 14.3 % (11.6-14.8); WHITE BLOOD COUNT 5.2 K/UL (4.8-10.8)
[2016-12-10 04:53] LABS: ANION GAP 14 (5-15); CALCIUM 9.5 mg/dL (8.6-10.2); CARBON DIOXIDE 26 mEQ/L (20-30); CHLORIDE 101 mEQ/L (98-107); HEMOLYSIS 3; POTASSIUM 3.7 mEQ/L (3.4-4.9); SODIUM 141 mEQ/L (135-145)
[2016-12-10] MEDS: HYDROmorphone 1mg/ml Carpuject IVP PRN (05:15)
[2016-12-10] MEDS: Piperacillin/Tazobactam 3.375 GM in D5W 110 ML IVPB SCH (05:15)
[2016-12-10] MEDS: HydrALAZINE 25mg tab ORAL SCH (05:15)
[2016-12-10] MEDS: NovoLOG Insulin Flexpen SUBQ SCH (06:08)
[2016-12-10 08:00] VITALS: BP 136/72
[2016-12-10] MEDS: Xarelto 15mg tab ORAL SCH (09:05)
[2016-12-10] MEDS: cycloSPORINE 25mg cap ORAL SCH (09:05)
[2016-12-10] MEDS: Docusate 100mg cap ORAL SCH (09:05)
[2016-12-10] MEDS: Ascorbic Acid 500mg tab ORAL SCH (09:05)
[2016-12-10] MEDS: azaTHIOprine 50 MG TAB ORAL SCH (09:06)
[2016-12-10] MEDS: Lyrica 50mg cap ORAL SCH (09:06)
[2016-12-10 12:00] VITALS: BP 134/70
[2016-12-10] MEDS ORDERED: Tubing IV Secondary IV ONE (13:59)
[2016-12-10] MEDS ORDERED: NS 275ml ONE (13:59)
--- NOTE | 2016-12-10 22:58 | Discharge Summary ---
DATE OF ADMISSION: 12/01/2016 DATE OF DISCHARGE: 12/10/2016 ADMISSION DIAGNOSES: 1. Possible syncope. 2. Kidney transplant. 3. Hypertension. 4. Diabetes. 5. Multidrug resistant urinary tract infection. 6. Deep venous thrombosis. DISCHARGE DIAGNOSES: 1. Possible syncope. 2. kidney transplant. 3. Hypertension. 4. Diabetes. 5. Multidrug resistant urinary tract infection. 6. Deep venous thrombosis. HISTORY OF PRESENT ILLNESS: The patient is a pleasant female, was admitted with a syncopal episode at home. She presented to the office. A large ecchymosis over the forehead and according the patient she had either fallen or fainted. She was admitted. She had a CAT scan of the head that was unremarkable. She had x-rays of her legs and she had a recent open reduction and internal fixation that showed a healing fracture. Ortho was consulted. The patient was cleared for removal of her sutures/alok. She had a venous duplex of the legs that showed acute DVT. She was started on Xarelto. Renal and Cardiology consultations were also obtained to assist in management of her blood pressure and her kidney transplant medications. Condition on discharge of the patient was well. Because of the recent fracture, it was recommended that she go to acute rehabilitation. She was also offered snf facility but she declined to go to the acute rehabilitation with plans to go home. Please see discharge medication list for discharge medications. DIET: Diabetic and cardiac diet. ACTIVITY: Ad-marsha. FOLLOWUP: The patient to follow up at the acute rehabilitation in one day. John Red M.D. DR: Jose JOB#: [id number] CC:
--- NOTE | 2016-12-11 05:38 | Progress Note ---
DATE: 12/10/2016 CARDIOLOGY PROGRESS NOTE: SUBJECTIVE: The patient is in no distress. She needs more mobilization. Her left leg wound is healing. Mobility is impaired. OBJECTIVE: VITAL SIGNS: Blood pressure 134/70, heart rate 86, and respiratory rate 18. NECK: Supple. LUNGS: Clear. CARDIAC: Regular. Normal S1, S2. ABDOMEN: Soft. EXTREMITIES: Right BKA. Left wound is stable. No edema. IMPRESSION: 1. Severe functional decline. 2. Right below knee amputation. 3. Left leg contusion, trauma, and gait abnormality. 4. Permanent pacemaker. 5. Hypertensive heart disease. 6. Chronic diastolic congestive heart failure. 7. Peripheral artery disease. 8. Type 2 diabetes mellitus. 9. Renal transplant. 10. Recovered encephalopathy due to sepsis. PLAN: Continue current cardiovascular regimen, anti-platelet, and anti-lipid regimen. Stable for transfer to acute rehabilitation facility for mobilization with prosthesis. Matthew Tinajero M.D. DR: Noah JOB#: [id number] CC:
== END 2016-12-10 14:00 | disposition short-term general hospital (02) | DRG 91 ==
LOC: 4W 14:19
DX: G92 Toxic encephalopathy (principal); L89.224 Pressure ulcer of left hip, stage 4; I50.33 Acute on chronic diastolic (congestive) heart failure; I82.409 Acute embolism and thrombosis of unspecified deep veins of unspecified lower extremity; L89.219 Pressure ulcer of right hip, unspecified stage; L89.319 Pressure ulcer of right buttock, unspecified stage; I11.0 Hypertensive heart disease with heart failure; Z94.0 Kidney transplant status; L89.153 Pressure ulcer of sacral region, stage 3; N39.0 Urinary tract infection, site not specified; S00.83XA Contusion of other part of head, initial encounter; E86.0 Dehydration; R55 Syncope and collapse; W19.XXXA Unspecified fall, initial encounter; I73.9 Peripheral vascular disease, unspecified; Z95.0 Presence of cardiac pacemaker; Z89.511 Acquired absence of right leg below knee; Z16.24 Resistance to multiple antibiotics; I25.2 Old myocardial infarction; E11.9 Type 2 diabetes mellitus without complications; S72.402D Unspecified fracture of lower end of left femur, subsequent encounter for closed fracture with routine healing; R32 Unspecified urinary incontinence; S80.12XA Contusion of left lower leg, initial encounter; B96.20 Unspecified Escherichia coli [E. coli] as the cause of diseases classified elsewhere; B96.1 Klebsiella pneumoniae [K. pneumoniae] as the cause of diseases classified elsewhere; E83.42 Hypomagnesemia; R26.9 Unspecified abnormalities of gait and mobility; E11.40 Type 2 diabetes mellitus with diabetic neuropathy, unspecified; Z79.4 Long term (current) use of insulin; Z86.718 Personal history of other venous thrombosis and embolism; Z79.01 Long term (current) use of anticoagulants
CPT/HCPCS: 36415; 73502; 74000; 80048; 80053; 81001; 82962; 83735; 83880; 85025; 85610; 87086; 87181; 93971; J1815; J2405

== ENCOUNTER 2017-01-19 11:25 | Inpatient (IN) | payer MEDICARE, MEDICAID ==
[~2017-01-19] VITALS: Ht 167.6 cm; Wt 68.0 kg
[~2017-01-19 11:25] MED LIST changes: +ASCORBIC ACID500 M4 ORAL; +CYCLOSPORINE MO25 MG ORAL; +FEOSOL325 MG ORAL; +HYDROMORPHO1 MG/1 M4 IVP; +IMURAN50 MG ORAL; +LYRICA50 MG ORAL; +NORVASC5 MG ORAL; +PROTONIX40 MG ORAL
[2017-01-19] MEDS ORDERED: Artificial Tears 1.4% Op Soln BOTH EYES PRN (13:45)
[2017-01-19 16:56] VITALS: BP 135/73
[2017-01-19] MEDS: guaiFENesin 100mg/5ml Liq ud ORAL SCH ×2 (17:00→22:42)
[2017-01-19] MEDS: Lyrica 50mg cap ORAL SCH (17:53)
[2017-01-19] MEDS: HYDROmorphone 1mg/ml Carpuject IVP PRN ×2 (17:54→22:42)
[2017-01-19] MEDS ORDERED: cycloSPORINE 100mg cap ORAL SCH (18:00)
[2017-01-19 19:35] LABS: BASOPHILS % (AUTO) 1.8 % (0.0-2.0); EOSINOPHILS % (AUTO) 0.8 % (0.0-3.0); LYMPHOCYTES % (AUTO) 27.6 % (20.0-45.0); MEAN CORPUSCULAR HEMOGLOBIN 32.6 PG (27.0-31.0); MEAN CORPUSCULAR HGB CONC 33.4 G/DL (32.0-36.0); MEAN CORPUSCULAR VOLUME 97 FL (80-99); MEAN PLATELET VOLUME 9.4 FL (6.5-10.1); MONOCYTES % (AUTO) 5.7 % (1.0-10.0); PLATELET COUNT 129 K/UL (150-450); RED BLOOD COUNT 3.76 M/UL (4.20-5.40); RED CELL DISTRIBUTION WIDTH 13.4 % (11.6-14.8); WHITE BLOOD COUNT 6.5 K/UL (4.8-10.8)
[2017-01-19 19:44] LABS: TROPONIN I < 0.30 ng/mL (<=0.30)
[2017-01-19 19:46] LABS: ALANINE AMINOTRANSFERASE 5 U/L (3-33); ALBUMIN/GLOBULIN RATIO 0.6 (1.0-2.7); ANION GAP 16 (5-15); ASPARTATE AMINO TRANSFERASE 13 U/L (5-40); CALCIUM 9.3 mg/dL (8.6-10.2); CARBON DIOXIDE 25 mEQ/L (20-30); CHLORIDE 97 mEQ/L (98-107); CREATININE 0.9 mg/dL (0.5-0.9); HEMOLYSIS 5; POTASSIUM 4.4 mEQ/L (3.4-4.9); SODIUM 138 mEQ/L (135-145); TOTAL PROTEIN 7.8 g/dL (6.6-8.7)
[2017-01-19 20:02] VITALS: BP 130/77
[2017-01-19] MEDS: HydrALAZINE 25mg tab ORAL SCH (21:13)
[2017-01-19] MEDS: Xarelto 15mg tab ORAL SCH (21:13)
[2017-01-19] MEDS: MS Contin 15mg tab ORAL SCH (21:14)
[2017-01-20] VITALS: BP 130/63
[2017-01-20 04:00] VITALS: BP 139/79
[2017-01-20] MEDS: guaiFENesin 100mg/5ml Liq ud ORAL SCH ×4 (05:00→23:00)
[2017-01-20] MEDS: HYDROmorphone 1mg/ml Carpuject IVP PRN ×4 (05:43→18:34)
[2017-01-20] MEDS: HydrALAZINE 25mg tab ORAL SCH ×3 (05:43→21:28)
[2017-01-20] MEDS: Ascorbic Acid 500mg tab ORAL SCH (08:45)
[2017-01-20] MEDS: azaTHIOprine 50 MG TAB ORAL SCH (08:45)
[2017-01-20] MEDS: MS Contin 15mg tab ORAL SCH ×2 (08:46→21:28)
[2017-01-20] MEDS: Aspirin EC 81mg tab ORAL SCH (08:46)
[2017-01-20] MEDS: Lyrica 50mg cap ORAL SCH ×2 (08:47→17:08)
[2017-01-20] MEDS: Furosemide 40mg tab ORAL SCH ×2 (08:49→08:56)
[2017-01-20 08:57] VITALS: BP 112/65
[2017-01-20 12:30] VITALS: BP 140/76
--- NOTE | 2017-01-20 15:19 | Wound Care Consultation ---
Wound Assessment Wound Assessment #1: Wound Number: #1 Wound Present on Admission: Yes New Wound: No Status Change of Wound: No Wound Location Body Site Modif: mid Wound Location Body Site: sacral Wound Type: pressure ulcer Rodolfo Test: Does not Rodolfo Pressure Ulcer Stage: III - scattered Wound Thickness: Full Thickness Wound Length: 6.0 Wound Width: 9.0 Wound Depth: 0.3 Percent of Wound [place]/Red: 90 Percent of Wound Purple/Maroon: 10 Wound Drainage Description: Serosanguineous Wound Drainage Amount: Moderate Wound Drainage Odor: None/Absent Tissue Surrounding Wound: Macerated Wound General Appearance: Reddened, Draining Wound Assessment #2: Wound Number: #2 Wound Present on Admission: Yes New Wound: No Status Change of Wound: No Wound Location Body Site Modif: left Wound Location Body Site: ischial tuberosity Wound Type: pressure ulcer Rodolfo Test: Does not Rodolfo Pressure Ulcer Stage: III - scattered Wound Thickness: Full Thickness Wound Length: 3.5 Wound Width: 3.5 Wound Depth: 0.3 Percent of Wound [place]/Red: 100 Wound Drainage Description: Serosanguineous Wound Drainage Amount: Scant Wound Drainage Odor: None/Absent Tissue Surrounding Wound: Macerated Wound General Appearance: Reddened Wound Assessment #3: Wound Number: #3 Wound Present on Admission: Yes New Wound: No Status Change of Wound: No Wound Location Body Site Modif: left Wound Location Body Site: toe - 1st toe Wound Type: scab - dry scab Rodolfo Test: Does not Rodolfo Wound Thickness: Full Thickness Wound Length: 0.5 Wound Width: 0.5 Wound Depth: utd Percent of Wound Black/Brown: 100 - dry scab Wound Drainage Amount: None Wound Drainage Odor: None/Absent Tissue Surrounding Wound: dry scab Wound General Appearance: Open to air, Clean/Dry Wound Comment #1 mid sacral pressure ulcer scattered stage III. #2 left ischial tuberosity scattered stage III and scattered full thickness scar tissue. #3 left 1st toe dry scab. Recommendation. -Local wound care as ordered. -Turn and reposition. -Offload affected areas, heels and feet. - Optimize nutrition. -Keep clean and dry. -Apply low air loss overlay mattress. -Assess and notify MD for any further changes in skin noted. MATT FRANCO Jan 20, 2017 15:19
--- NOTE | 2017-01-20 15:28 | History and Physical Report ---
DATE OF ADMISSION: 01/19/2017 CHIEF COMPLAINT: Sacral wound and pressure ulcers. HISTORY OF PRESENT ILLNESS: The patient is a pleasant 76-year-old female. She has a history of kidney transplant, hypertension, diabetes, peripheral artery disease, History of DVT and history of left femur fracture, status post ORIF. She was admitted with complaints of sacral wound . The patient is cared for by family at home. According to the patient, she has been urinating frequently and she does admit to some times being incontinent, not changing herself, but informed family that she was wet in a timely fashion. She presented to the office with multiple sacral wounds that were not improving at home. Therefore, she is admitted for further evaluation and care. She denies any fevers or chills. She has had no chest pain or shortness of breath. PAST MEDICAL HISTORY: As above. PAST SURGICAL HISTORY: Includes a right BKA and kidney transplant. MEDICATIONS: Current medications reconciled and reviewed. ALLERGIES: None. SOCIAL HISTORY: Negative for tobacco, ethanol, or drugs. FAMILY HISTORY: None. REVIEW OF SYSTEMS: General: No fever or chills. HEENT: No headaches or visual changes. Cardiopulmonary: No chest pain or shortness of breath. Gastrointestinal: No nausea or vomiting. Genitourinary: No urgency or frequency. Musculoskeletal: Positive joint pain. Neurologic: No evidence of seizures. PHYSICAL EXAMINATION: VITAL SIGNS: Temperature 98.0 degrees, blood pressure 140/70, pulse of 80, and respirations 20. GENERAL: The patient is a thin female in no apparent distress. She is awake, alert, and oriented x4. HEENT: Her pupils are equal, round, and reactive to light. Oropharynx is clear. Mucous membranes are moist. NECK: Supple. HEART: Regular rate and rhythm. LUNGS: Clear. ABDOMEN: Soft, nontender, and nondistended. EXTREMITIES: There is a right BKA. There is multiple stage III sacral wounds on the buttocks. There is no erythema or purulent discharge. ASSESSMENT: This is a pleasant elderly female admitted with: 1. Sacral wound, rule out fecal impaction. 2. Doubt cellulitis. 3. Hypertension. 4. Diabetes. 5. Peripheral artery disease. 6. Kidney transplant. 7. History of hypertension. 8. Diastolic congestive heart failure. 9. History of deep vein thrombosis. PLAN: Wound care evaluation, frequent turning, consider Gonzalez catheter. IV pain medications for pain management. Cardiology followup. the patient's antihypertensive and cardiac regimen. Renal follow up regarding the patient's transplant. John Red M.D. DR: Wilder JOB#: [id number] CC:
[2017-01-20 16:08] VITALS: BP 117/59
[2017-01-20] MEDS: Xarelto 15mg tab ORAL SCH (17:08)
[2017-01-20] MEDS: cycloSPORINE 25mg cap ORAL SCH (18:34)
[2017-01-20 20:00] VITALS: BP 135/76
[2017-01-21] VITALS: BP 134/72
--- NOTE | 2017-01-21 03:08 | Progress Note ---
DATE: 01/20/2017 SUBJECTIVE: The patient's pain is better. Wound care evaluation noted. OBJECTIVE: VITAL SIGNS: Stable. Afebrile. Blood pressure 135/76, pulse 81, and respiratory rate 19. HEENT: Temporal wasting. Arcus senilis. Oropharynx clear. NECK: Supple. LUNGS: Clear. CARDIAC: Regular. Normal S1 and S2 with a fourth heart sound. ABDOMEN: Soft. Right palpable transplanted kidney. EXTREMITIES: Right BKA. IMPRESSION: 1. cellulitis and osteomyelitis. 2. Type 2 diabetes mellitus. 3. Hypertensive heart disease. 4. History of DVT, on anticoagulation. 5. Permanent pacemaker. 6. Right lower extremity amputation. PLAN: 1. Recheck laboratory studies. 2. Continue skin care. 3. Continue full anticoagulation. 4. Titrate antihypertensives. 5. Discharge planning to follow. Matthew Tinajero M.D. DR: KAM JOB#: [id number] CC:
[2017-01-21 04:00] VITALS: BP 126/76
[2017-01-21] MEDS: guaiFENesin 100mg/5ml Liq ud ORAL SCH ×4 (04:58→23:00)
[2017-01-21] MEDS: HydrALAZINE 25mg tab ORAL SCH ×3 (05:49→21:34)
[2017-01-21] MEDS: HYDROmorphone 1mg/ml Carpuject IVP PRN ×2 (06:10→11:13)
[2017-01-21 08:00] VITALS: BP 150/88
[2017-01-21] MEDS: Lyrica 50mg cap ORAL SCH ×2 (09:00→17:21)
[2017-01-21] MEDS: azaTHIOprine 50 MG TAB ORAL SCH (09:00)
[2017-01-21] MEDS: Ascorbic Acid 500mg tab ORAL SCH (09:00)
[2017-01-21] MEDS: Furosemide 40mg tab ORAL SCH ×2 (09:00→09:57)
[2017-01-21] MEDS: MS Contin 15mg tab ORAL SCH ×2 (09:48→21:34)
[2017-01-21] MEDS: cycloSPORINE 25mg cap ORAL SCH ×2 (09:50→17:21)
[2017-01-21 10:01] LABS: ALANINE AMINOTRANSFERASE < 5 U/L (3-33); ALBUMIN/GLOBULIN RATIO 0.7 (1.0-2.7); ANION GAP 14 (5-15); ASPARTATE AMINO TRANSFERASE 13 U/L (5-40); CALCIUM 9.9 mg/dL (8.6-10.2); CARBON DIOXIDE 26 mEQ/L (20-30); CHLORIDE 97 mEQ/L (98-107); CREATININE 0.9 mg/dL (0.5-0.9); HEMOLYSIS 3; POTASSIUM 4.8 mEQ/L (3.4-4.9); SODIUM 137 mEQ/L (135-145); TOTAL PROTEIN 7.7 g/dL (6.6-8.7)
[2017-01-21] MEDS: Aspirin EC 81mg tab ORAL SCH (10:05)
[2017-01-21 12:00] VITALS: BP 163/82
--- NOTE | 2017-01-21 12:09 | Consultation ---
DATE OF CONSULTATION: Cardiology Consultation . REASON FOR CONSULTATION: Hypertensive cardiomyopathy in the setting of a permanent pacemaker and in the setting of sacral wound. HISTORY OF PRESENT ILLNESS: This is a 76-year-old female with multiple medical problems including prior renal transplant, who was admitted to the hospital because of progressive sacral wound breakdown in view of comorbidities. I have been asked to assist with cardiovascular care. PAST MEDICAL HISTORY: 1. Type 2 diabetes mellitus. 2. History of renal transplant. 3. Chronic kidney disease. 4. Peripheral artery disease with right BKA. 5. Hypertension with hypertensive heart disease. 6. Left femur fracture with open reduction and internal fixation. 7. Diabetic neuropathy. 8. Phantom limb pain. 9. Chronic diastolic congestive heart failure. MEDICATIONS: Prior to admission, reviewed and reconciled. ALLERGIES: Not known. SOCIAL HISTORY: Positive for smoking. No alcohol or substance abuse. REVIEW OF SYSTEMS: No fevers. She does have a prior history of DVT with IVC filter placed. No history of seizures or stroke. She does have joint pain and phantom limb pain. There is no history of thyroid disorder or diabetes. She is managed with sliding scale insulin. Her most recent pacemaker interrogation was within the last three months and device functioning appropriately. There is no history of flow limiting coronary artery disease and her most recent echocardiogram revealed normal ejection fraction with diastolic relaxation abnormality. PHYSICAL: Wounds are pictured. OBJECTIVE: VITAL SIGNS: Blood pressure 140/70, heart rate 80, and respiratory rate 20. No fever. HEENT: Temporal wasting. Arcus senilis. Oropharynx clear with no thrush. NECK: Supple. No adenopathy or jugular venous distention. LUNGS: Clear. masses. CARDIAC: Regular rhythm and rate. Normal S1 and S2 with a fourth heart sound. ABDOMEN: Soft. EXTREMITIES: Palpable transplant site on the right. There is also right BKA, multiple sacral wounds noted. Slight resting tremor. IMPRESSION: 1. Sacral wound. 2. Hypertensive heart disease. 3. Type 2 diabetes mellitus. 4. Chronic kidney disease with renal transplant. 5. Permanent pacemaker. 6. History of DVT. 7. Peripheral artery disease with amputation. PLAN: Wound care. Pressure ulcer prophylaxis. Pain control. Titrate antihypertensives based on clinical parameters. Review old records and schedule pacemaker interrogation . We will treatment of DVT diuretics based on clinical parameters. Matthew Tinajero M.D. DR: NED JOB#: [id number] CC:
[2017-01-21 15:57] VITALS: BP 124/78
[2017-01-21] MEDS: Xarelto 15mg tab ORAL SCH (17:21)
[2017-01-21 20:00] VITALS: BP 117/61
[2017-01-21 22:37] LABS: APPEARANCE,URINE SLIGHTLY CLOUDY; KETONES,URINE NEGATIVE (NEGATIVE); LEUKOCYTE ESTERASE ,URINE 3+ (NEGATIVE); NITRITE,URINE NEGATIVE (NEGATIVE); PH,URINE 5 (4.5-8.0); PROTEIN,URINE 3+ (NEGATIVE); UROBILINOGEN,URINE NORMAL MG/DL (0.0-1.0)
--- NOTE | 2017-01-21 22:48 | Consultation ---
DATE OF CONSULTATION: NEPHROLOGY CONSULTATION CONSULTING PHYSICIAN: Kade Cochran M.D. REFERRING PHYSICIAN: John Red M.D. REASON FOR CONSULTATION: I am asked to evaluate the patient, who is 76-year-old lady with a long-standing kidney transplant. HISTORY OF PRESENT ILLNESS: The patient is admitted with sacral wound pressure sores, has a history of urinary incontinence, peripheral vascular disease, and end-stage renal disease. She is on hemodialysis, but had a kidney transplant on 04/10/2007 and since that time, she has had generally stable renal function. She did have an episode of acute kidney injury in the past, which is felt to be due to tacrolimus or cyclosporine toxicity, which resolved. She has had recurrent UTIs and kidney transplant, however, and she has had some dysuria recently. She has had intermittent prolonged Gonzalez catheterization and has a neurogenic bladder. She has had a history of peripheral vascular disease and right below-knee amputation, multiple vascular surgeries, and revisions of wounds on her legs. She has chronic pain. She also has a history of permanent pacemaker and cardiac disease. PAST SURGICAL HISTORY: Kidney transplant, multiple dialysis, vascular access surgeries, permanent pacemaker, multiple vascular procedures in her legs with debridement of toe and foot ulcers, right below-knee amputation, and revisions of wounds of left leg. ALLERGIES: None known. MEDICATIONS: Medications are reconciled on the computer. Regarding her transplant, she is off of prednisone and on cyclosporine 100 mg b.i.d. and azathioprine 75 mg daily. She has been on that regimen for several years at least. HABITS: She is a nondrinker and nonsmoker. SOCIAL HISTORY: She lives with family. SYSTEM REVIEW: HEAD, EYES, EARS, NOSE, AND THROAT: Vision and hearing is good. ENDOCRINE: She has had mild glucose intolerance in the past when she was on steroids. No chronic need for diabetic medications. No thyroid disease. PULMONARY: No asthma or TB. CARDIAC: She has history of pacemaker and hypertensive heart disease. GASTROINTESTINAL: She has had intermittent nausea and vomiting. She has had some anorexia. In the past, she has had C. difficile. GENITOURINARY: See above. NEUROLOGIC: No definite CVA or seizures. However, she has a chronic pain syndrome. PHYSICAL EXAMINATION: GENERAL: The patient is lying in bed, in no acute distress. She is alert. VITAL SIGNS: Temperature 96.1 degrees, pulse 86, respirations 19, and blood pressure 124/78. HEAD, EYES, EARS, NOSE, AND THROAT: Sclerae nonicteric. Ocular motions intact in all directions. Oral mucosa moist. NECK: No adenopathy. LUNGS: Clear. HEART: Regular rhythm. No murmur. ABDOMEN: Soft. No organomegaly. The renal transplant in the right iliac fossa is minimally tender. EXTREMITIES: Show muscle atrophy. She has a right below-knee amputation and multiple scars on the left leg. SKIN: The sacral wounds were not re-examined. NEUROLOGIC: She is alert and oriented. Cranial nerves are intact. She moves all extremities. LABORATORY DATA: Pertinent labs on 01/21/2017, sodium 137, potassium 4.8, chloride 97, CO2 of 26, BUN 11, creatinine 0.9, and glucose is 223. BNP is 1058. Albumin is 3.2. White count is 6.5 with a hemoglobin of 12.3. IMPRESSION: 1. Renal transplant status with stable renal function. 2. Recurring urinary tract infections. 3. Decubiti. 4. Incontinence. 5. Peripheral vascular disease, status post multiple surgeries. 6. History of pacemaker. PLAN: I will continue on the same immunosuppression at this time as the kidney function is stable and she does not appear to have any sepsis. The urinalysis and urine culture are pending. She might need a Gonzalez catheter and this I will defer to Dr. Red. We will await further laboratory. Continue wound care and we will follow with you. Kade Cochran M.D. DR: ILSA JOB#: [id number] CC:
[2017-01-21 22:57] LABS: BACTERIA,URINE MODERATE /HPF; SQUAMOUS EPITHELIAL CELL,UR FEW /LPF (NONE/OCC)
--- NOTE | 2017-01-21 23:09 | Progress Note ---
DATE: 01/21/2017 SUBJECTIVE: The patient was seen on admission by the wound care nurse. Appreciate recommendations patient. The patient was seen by dietitian. Therapy was adjusted with vitamin supplementation added. OBJECTIVE: VITAL SIGNS: Blood pressure 117/61 to 163/82, heart rate 80, and respiratory rate 19. The patient is afebrile. NECK: Supple. LUNGS: Clear. CARDIAC: Regular. Normal S1 and S2. ABDOMEN: Soft. There is right kidney mass palpable. EXTREMITIES: Right BKA. Wound was pictured in the chart. IMPRESSION: 1. Multiple sacral decubitus. 2. Hypomagnesemia. 3. Mild protein-calorie malnutrition. 4. Diabetes mellitus with complications including chronic kidney disease and peripheral artery disease. 5. History of right BKA. 6. History of renal transplant and immunocompromised state. 7. History of DVT. PLAN: 1. Intravenous magnesium. 2. Protein supplement. 3. Wound care. 4. Pain control. 5. Immunosuppressive therapy. 6. Chronic anticoagulation for DVT with rivaroxaban. Jennifer Núñez JOB#: [id number] CC:
[2017-01-22] VITALS (7 sets, daily range): BP systolic 110–130; BP diastolic 55–74
[2017-01-22] MEDS: guaiFENesin 100mg/5ml Liq ud ORAL SCH ×4 (05:00→23:00)
[2017-01-22] MEDS: HydrALAZINE 25mg tab ORAL SCH ×3 (05:28→21:16)
[2017-01-22] MEDS: cycloSPORINE 25mg cap ORAL SCH ×2 (08:31→17:08)
[2017-01-22] MEDS: Ascorbic Acid 500mg tab ORAL SCH (08:31)
[2017-01-22] MEDS: Zinc Sulfate 220mg cap ORAL SCH (08:32)
[2017-01-22] MEDS: azaTHIOprine 50 MG TAB ORAL SCH (08:32)
[2017-01-22] MEDS: Nephrovite tab ORAL SCH (08:32)
[2017-01-22] MEDS: Furosemide 40mg tab ORAL SCH (08:32)
[2017-01-22] MEDS: Aspirin EC 81mg tab ORAL SCH (08:32)
[2017-01-22] MEDS: MS Contin 15mg tab ORAL SCH ×2 (08:33→21:15)
[2017-01-22] MEDS: Lyrica 50mg cap ORAL SCH ×2 (08:34→17:07)
[2017-01-22] MEDS: Xarelto 15mg tab ORAL SCH (16:03)
--- NOTE | 2017-01-22 16:42 | Nephrology Progress Note ---
Assessment/Plan Problem List: (1) UTI (urinary tract infection) (2) Peripheral vascular disease (3) Diastolic CHF with preserved left ventricular function, NYHA class 2 (4) Status post kidney transplant Assessment ua and culture likely contaminated, repeat cath specimen, continue current immunosuppression Subjective Constitutional: Reports: weakness HEENT: Reports: no symptoms Genitourinary: Reports: incontinence Neurologic/Psychiatric: Reports: no symptoms Objective Objective Last 24 Hour Vital Signs Date Time Temp Pulse Resp B/P Pulse Ox O2 Delivery O2 Flow Rate FiO2 01/22/17 14:38 117/57 01/22/17 14:34 86 117/57 01/22/17 12:48 97.0 84 19 117/68 100 Room Air 01/22/17 11:52 117/68 01/22/17 08:39 97.0 94 20 126/74 95 Room Air 01/22/17 08:33 94 126/74 01/22/17 05:59 96.1 01/22/17 05:28 121/61 01/22/17 05:28 121/61 01/22/17 04:05 96.1 86 20 121/61 100 Room Air 01/22/17 00:00 97.5 90 20 110/55 100 Room Air 01/22/17 00:00 117/61 01/21/17 22:39 97.4 01/21/17 21:34 117/61 01/21/17 20:00 97.4 80 19 117/61 100 Room Air 01/21/17 17:22 140/91 Intake and Output 01/21/17 01/22/17 19:00 07:00 Intake Total 600 ml 1040 ml Balance 600 ml 1040 ml Intake Oral 600 ml 840 ml IV Total 200 ml # Voids 2 1 Laboratory Tests 01/21/17 21:45: Urine Color Pale yellow, Urine Appearance Slightly cloudy, Urine pH 5, Urine Specific [place] 1.010, Urine Protein 3+H, Urine Glucose (UA) Negative, Urine Ketones Negative, Urine Occult Blood 2+H, Urine Nitrite Negative, Urine Bilirubin Negative, Urine Urobilinogen Normal, Urine Leukocyte Esterase 3+H, Urine RBC 2-4H, Urine WBC 5-10H, Urine Squamous Epithelial Cells Few, Urine Bacteria ModerateH Height (Feet): 5 Height (Inches): 6.00 Weight (Pounds): 150 General Appearance: no apparent distress, alert EENT: normal ENT inspection Neck: non-tender, normal alignment Cardiovascular: normal rate, regular rhythm Respiratory/Chest: lungs clear Abdomen: non tender Extremities: other - r bka, old wounds LLE Neurologic: technology support analyst II-XII grossly normal APURVA ROBERTSON Jan 22, 2017 16:42
[2017-01-22 21:19] LABS: APPEARANCE,URINE VERY CLOUDY; KETONES,URINE NEGATIVE (NEGATIVE); LEUKOCYTE ESTERASE ,URINE 3+ (NEGATIVE); NITRITE,URINE NEGATIVE (NEGATIVE); PH,URINE 5 (4.5-8.0); PROTEIN,URINE 3+ (NEGATIVE); UROBILINOGEN,URINE NORMAL MG/DL (0.0-1.0)
[2017-01-22 21:41] LABS: BACTERIA,URINE MANY /HPF; RBC,URINE 0-2 /HPF (0 - 2); WBC,URINE TNTC /HPF (0 - 2)
[2017-01-23] VITALS: BP 114/69
--- NOTE | 2017-01-23 01:08 | Progress Note ---
DATE: 01/22/2017 CARDIOLOGY PROGRESS NOTE SUBJECTIVE: The patient has less pain. Ongoing wound care is noted. She is incontinent and foul-smelling urine. OBJECTIVE: VITAL SIGNS: Blood pressure 117/57, pulse 86, and respirations 19. NECK: Supple. LUNGS: Clear. CARDIAC: Regular. Normal S1 and S2. ABDOMEN: Soft with right-sided transplant palpable. EXTREMITIES: No edema. IMPRESSION: 1. Renal transplant. 2. Decubitus status. 3. Possible urinary tract infection. 4. Permanent pacemaker. 5. Chronic diastolic congestive heart failure. 6. Hypertensive heart disease. 7. Peripheral artery disease with right below-knee amputation. 8. Mild protein-calorie malnutrition. PLAN: 1. Await urine studies. 2. Continue wound care. 3. Nutritional support. 4. Discharge planning. Matthew Tinajero M.D. DR: PATRICIA JOB#: [id number] CC:
[2017-01-23 04:00] VITALS: BP 136/73
[2017-01-23] MEDS: guaiFENesin 100mg/5ml Liq ud ORAL SCH ×4 (05:00→23:00)
[2017-01-23] MEDS: HydrALAZINE 25mg tab ORAL SCH ×3 (05:30→22:00)
[2017-01-23 07:29] LABS: BASOPHILS % (AUTO) 0.8 % (0.0-2.0); EOSINOPHILS % (AUTO) 1.4 % (0.0-3.0); LYMPHOCYTES % (AUTO) 29.8 % (20.0-45.0); MEAN CORPUSCULAR HEMOGLOBIN 30.7 PG (27.0-31.0); MEAN CORPUSCULAR HGB CONC 31.4 G/DL (32.0-36.0); MEAN CORPUSCULAR VOLUME 98 FL (80-99); MEAN PLATELET VOLUME 10.6 FL (6.5-10.1); MONOCYTES % (AUTO) 6.7 % (1.0-10.0); NEUTROPHILS % (AUTO) 61.3 % (45.0-75.0); PLATELET COUNT 157 K/UL (150-450); RED BLOOD COUNT 3.51 M/UL (4.20-5.40); RED CELL DISTRIBUTION WIDTH 13.4 % (11.6-14.8); WHITE BLOOD COUNT 5.7 K/UL (4.8-10.8)
[2017-01-23 07:49] VITALS: BP 122/70
[2017-01-23 07:57] LABS: ANION GAP 15 (5-15); CALCIUM 9.8 mg/dL (8.6-10.2); CARBON DIOXIDE 25 mEQ/L (20-30); CHLORIDE 94 mEQ/L (98-107); CREATININE 1.1 mg/dL (0.5-0.9); HEMOLYSIS 4; POTASSIUM 4.9 mEQ/L (3.4-4.9); SODIUM 134 mEQ/L (135-145)
[2017-01-23] MEDS: MS Contin 15mg tab ORAL SCH ×2 (08:19→21:00)
--- NOTE | 2017-01-23 08:19 | Nephrology Progress Note ---
Assessment/Plan Problem List: (1) UTI (urinary tract infection) (2) Peripheral vascular disease (3) Diastolic CHF with preserved left ventricular function, NYHA class 2 (4) Status post kidney transplant Assessment ua and culture likely contaminated, repeat cath specimen,+pyuria, empiric atb, continue current immunosuppression Subjective Constitutional: Reports: weakness HEENT: Reports: no symptoms Genitourinary: Reports: incontinence Neurologic/Psychiatric: Reports: no symptoms Objective Objective Last 24 Hour Vital Signs Date Time Temp Pulse Resp B/P Pulse Ox O2 Delivery O2 Flow Rate FiO2 01/23/17 07:49 98.2 84 20 122/70 96 Room Air 01/23/17 05:30 130/79 01/23/17 05:29 130/79 01/23/17 04:00 97.7 85 22 136/73 100 01/23/17 00:00 97.3 86 20 114/69 100 Room Air 01/22/17 23:53 114/69 01/22/17 21:16 136/92 01/22/17 20:00 90 22 130/69 100 Room Air 01/22/17 17:59 116/67 01/22/17 16:36 97.0 89 20 116/67 100 Room Air 01/22/17 14:38 117/57 01/22/17 14:34 86 117/57 01/22/17 12:48 97.0 84 19 117/68 100 Room Air 01/22/17 11:52 117/68 01/22/17 08:39 97.0 94 20 126/74 95 Room Air 01/22/17 08:33 94 126/74 Intake and Output 01/22/17 01/23/17 19:00 07:00 Intake Total 600 ml Balance 600 ml Intake Oral 600 ml # Voids 2 4 # Bowel Movements 1 Laboratory Tests 01/22/17 17:15: Urine Color Yellow, Urine Appearance Very cloudy, Urine pH 5, Urine Specific [place] 1.015, Urine Protein 3+H, Urine Glucose (UA) Negative, Urine Ketones Negative, Urine Occult Blood 4+H, Urine Nitrite Negative, Urine Bilirubin Negative, Urine Urobilinogen Normal, Urine Leukocyte Esterase 3+H, Urine RBC 0-2 , Urine WBC TntcH, Urine Squamous Epithelial Cells None, Urine Bacteria ManyH 01/23/17 05:55: White Blood Count 5.7, Red Blood Count 3.51L, Hemoglobin 10.8L, Hematocrit 34.3L , Mean Corpuscular Volume 98, Mean Corpuscular Hemoglobin 30.7, Mean Corpuscular Hemoglobin Concent 31.4L, Red Cell Distribution Width 13.4, Platelet Count 157, Mean Platelet Volume 10.6H, Neutrophils (%) (Auto) 61.3, Lymphocytes (%) (Auto) 29.8, Monocytes (%) (Auto) 6.7, Eosinophils (%) (Auto) 1.4, Basophils (%) (Auto) 0.8, Sodium Level 134L, Potassium Level 4.9, Chloride Level 94L, Carbon Dioxide Level 25, Anion Gap 15, Blood Urea Nitrogen 28H, Creatinine 1.1H, Estimat Glomerular Filtration Rate , Glucose Level 133H, Calcium Level 9.8 Height (Feet): 5 Height (Inches): 6.00 Weight (Pounds): 150 General Appearance: no apparent distress, alert EENT: normal ENT inspection Neck: normal alignment Cardiovascular: normal rate Respiratory/Chest: lungs clear Abdomen: non tender, soft Extremities: other - r bka Neurologic: collateral specialist II-XII grossly normal APURVA ROBERTSON Jan 23, 2017 08:19
[2017-01-23] MEDS: cycloSPORINE 25mg cap ORAL SCH ×3 (08:20→17:35)
[2017-01-23] MEDS: Lyrica 50mg cap ORAL SCH ×2 (08:20→17:34)
[2017-01-23] MEDS: Ascorbic Acid 500mg tab ORAL SCH (08:21)
[2017-01-23] MEDS: Aspirin EC 81mg tab ORAL SCH (08:21)
[2017-01-23] MEDS: Nephrovite tab ORAL SCH (08:22)
[2017-01-23] MEDS: Furosemide 40mg tab ORAL SCH (08:22)
[2017-01-23] MEDS: Zinc Sulfate 220mg cap ORAL SCH (08:22)
[2017-01-23] MEDS: azaTHIOprine 50 MG TAB ORAL SCH (08:22)
[2017-01-23] MEDS: Piperacillin/Tazobactam 3.375 GM in D5W 110 ML IVPB SCH ×2 (10:32→22:00)
[2017-01-23 12:15] VITALS: BP 149/84
[2017-01-23 16:15] VITALS: BP 128/67
[2017-01-23] MEDS: Xarelto 15mg tab ORAL SCH (17:34)
[2017-01-23 19:00] VITALS: BP 119/72
[2017-01-24] VITALS: BP 122/76
[2017-01-24 04:00] VITALS: BP 124/70
--- NOTE | 2017-01-24 04:28 | Progress Note ---
DATE: 01/23/2017 CARDIOLOGY AND INTERNAL MEDICINE PROGRESS NOTE SUBJECTIVE: The patient is in with back pain. No shortness of breath. She feels that she would probably benefit from a longterm home stay. OBJECTIVE: VITAL SIGNS: Blood pressure 119/72, pulse 80, respirations 18, and afebrile. LUNGS: Clear. CARDIAC: Regular. ABDOMEN: Soft. Palpable renal transplant site. EXTREMITIES: Right BKA. LABORATORY AND DIAGNOSTIC DATA: White count 5.7 and hemoglobin 10.5. Potassium 4.9, BUN 28, and creatinine 1.1. IMPRESSION: 1. Prerenal azotemia. 2. Hyponatremia. 3. Hypochloremia. 4. Decubitus wound. 5. Type 2 diabetes mellitus with neuropathy. 6. Renal transplant. 7. Chronic kidney disease. 8. Hypertensive heart disease. 9. Right below knee amputation. 10. Chronic pain syndrome. PLAN: 1. Additional hydration. 2. Recheck magnesium. 3. Wound care. 4. Discharge planning. 5. Insulin coverage by sliding scale. Matthew Tinajero M.D. DR: Sulaiman JOB#: [id number] CC:
[2017-01-24] MEDS: guaiFENesin 100mg/5ml Liq ud ORAL SCH ×4 (05:00→23:00)
[2017-01-24] MEDS: Piperacillin/Tazobactam 3.375 GM in D5W 110 ML IVPB SCH ×3 (06:00→21:45)
[2017-01-24] MEDS: HydrALAZINE 25mg tab ORAL SCH ×3 (06:00→21:45)
[2017-01-24 08:19] VITALS: BP 128/57
[2017-01-24] MEDS: azaTHIOprine 50 MG TAB ORAL SCH (08:31)
[2017-01-24] MEDS: Aspirin EC 81mg tab ORAL SCH (08:32)
[2017-01-24] MEDS: Lyrica 50mg cap ORAL SCH ×2 (08:32→17:18)
[2017-01-24] MEDS: MS Contin 15mg tab ORAL SCH ×2 (08:32→21:45)
[2017-01-24] MEDS: Zinc Sulfate 220mg cap ORAL SCH (08:32)
[2017-01-24] MEDS: Nephrovite tab ORAL SCH (08:32)
[2017-01-24] MEDS: Furosemide 40mg tab ORAL SCH (08:33)
[2017-01-24] MEDS: Ascorbic Acid 500mg tab ORAL SCH (08:34)
[2017-01-24 11:52] VITALS: BP 132/62
[2017-01-24] MEDS ORDERED: NS 275ml ONE (14:47)
[2017-01-24 16:38] VITALS: BP 110/68
[2017-01-24] MEDS: Xarelto 15mg tab ORAL SCH (17:18)
[2017-01-24] MEDS: cycloSPORINE 25mg cap ORAL SCH (17:19)
[2017-01-24 19:00] VITALS: BP 111/69
--- NOTE | 2017-01-24 19:29 | General Progress Note ---
Assessment/Plan Problem List: (1) Abdominal pain (2) Dehydration ICD Codes: E86.0 - Dehydration SNOMED: 25186351 (3) Urinary tract infection (4) Encephalopathy acute ICD Codes: G93.40 - Encephalopathy acute SNOMED: 0634008 (5) Incontinence of urine in female ICD Codes: R32 - Unspecified urinary incontinence SNOMED: 281537438 (6) Peripheral vascular disease ICD Codes: I73.9 - Peripheral vascular disease, unspecified SNOMED: 182321198 (7) Diastolic CHF with preserved left ventricular function, NYHA class 2 ICD Codes: I50.30 - Unspecified diastolic (congestive) heart failure SNOMED: 628818889, 190867316, 500720981, 550790413 (8) Status post kidney transplant ICD Codes: Z94.0 - Kidney transplant status SNOMED: 97038674, 166293393 Status: stable, progressing Assessment/Plan cont wound care turn encourage pos pain rx xarelto for dvt monitor for bleeding. await snf Subjective ROS Limited/Unobtainable: No Constitutional: Reports: malaise, weakness HEENT: Reports: no symptoms Cardiovascular: Reports: no symptoms Respiratory: Reports: no symptoms Gastrointestinal/Abdominal: Reports: no symptoms Genitourinary: Reports: no symptoms Neurologic/Psychiatric: Reports: no symptoms Endocrine: Reports: no symptoms Hematologic/Lymphatic: Reports: anemia Allergies: Coded Allergies: No Known Allergies (Verified , 05/29/09) All Systems: reviewed and negative except above Subjective no new complaints. pain controlled. requesting to go to snf. doesnt think she will get the care she needs at home with family Objective Last 24 Hour Vital Signs Date Time Temp Pulse Resp B/P Pulse Ox O2 Delivery O2 Flow Rate FiO2 01/24/17 17:02 110/68 01/24/17 16:38 97.5 83 20 110/68 99 Room Air 01/24/17 15:33 97.9 01/24/17 13:22 132/62 01/24/17 12:00 132/62 01/24/17 11:52 97.9 87 18 132/62 99 Room Air 01/24/17 09:31 97.7 01/24/17 08:33 79 128/57 01/24/17 08:19 97.7 79 20 128/57 94 Room Air 01/24/17 06:00 124/70 01/24/17 06:00 124/70 01/24/17 04:00 98.0 77 18 124/70 96 Room Air 01/24/17 00:00 122/76 01/24/17 00:00 98.1 81 18 122/76 98 Room Air 01/23/17 22:00 119/72 Intake and Output 01/23/17 01/24/17 19:00 07:00 Intake Total 802.5 ml 1567.5 ml Balance 802.5 ml 1567.5 ml Intake Oral 720 ml 540 ml IV Total 82.5 ml 1027.5 ml # Voids 5 Height (Feet): 5 Height (Inches): 6.00 Weight (Pounds): 150 General Appearance: WD/WN, alert Neck: supple Cardiovascular: regular rhythm Respiratory/Chest: lungs clear, normal breath sounds, no respiratory distress, no accessory muscle use Abdomen: normal bowel sounds, non tender, soft, no organomegaly Edema: no edema noted Arm (L), no edema noted Arm (R), no edema noted Leg (L), no edema noted Leg (R), no edema noted Pedal (L), no edema noted Pedal (R), no edema noted Generalized Neurologic: reimbursement director II-XII grossly normal, alert, oriented x 3, responsive Skin: normal pigmentation ANJUM BUCHANAN Jan 24, 2017 19:29
--- NOTE | 2017-01-24 19:57 | Nephrology Progress Note ---
Assessment/Plan Problem List: (1) UTI (urinary tract infection) (2) Status post kidney transplant (3) Diastolic CHF with preserved left ventricular function, NYHA class 2 Plan Abxs follow labs Subjective Subjective feels ok Objective Objective Last 24 Hour Vital Signs Date Time Temp Pulse Resp B/P Pulse Ox O2 Delivery O2 Flow Rate FiO2 01/24/17 17:02 110/68 01/24/17 16:38 97.5 83 20 110/68 99 Room Air 01/24/17 15:33 97.9 01/24/17 13:22 132/62 01/24/17 12:00 132/62 01/24/17 11:52 97.9 87 18 132/62 99 Room Air 01/24/17 09:31 97.7 01/24/17 08:33 79 128/57 01/24/17 08:19 97.7 79 20 128/57 94 Room Air 01/24/17 06:00 124/70 01/24/17 06:00 124/70 01/24/17 04:00 98.0 77 18 124/70 96 Room Air 01/24/17 00:00 122/76 01/24/17 00:00 98.1 81 18 122/76 98 Room Air 01/23/17 22:00 119/72 Intake and Output 01/23/17 01/24/17 19:00 07:00 Intake Total 802.5 ml 1567.5 ml Balance 802.5 ml 1567.5 ml Intake Oral 720 ml 540 ml IV Total 82.5 ml 1027.5 ml # Voids 5 Height (Feet): 5 Height (Inches): 6.00 Weight (Pounds): 150 Cardiovascular: normal rate Respiratory/Chest: lungs clear HARMAN JI Jan 24, 2017 19:57
[2017-01-25] VITALS: BP_SYST 124; BP_SYST 133; BP_DIAS 61; BP_DIAS 65
[2017-01-25 04:00] VITALS: BP 128/71
[2017-01-25] MEDS: guaiFENesin 100mg/5ml Liq ud ORAL SCH ×4 (05:00→23:00)
[2017-01-25] MEDS: Piperacillin/Tazobactam 3.375 GM in D5W 110 ML IVPB SCH ×3 (05:36→21:30)
[2017-01-25] MEDS: HydrALAZINE 25mg tab ORAL SCH ×3 (05:52→21:29)
--- NOTE | 2017-01-25 07:54 | General Progress Note ---
Assessment/Plan Problem List: (1) Abdominal pain (2) Dehydration ICD Codes: E86.0 - Dehydration SNOMED: 29148562 (3) Urinary tract infection (4) Encephalopathy acute ICD Codes: G93.40 - Encephalopathy acute SNOMED: 7545899 (5) Incontinence of urine in female ICD Codes: R32 - Unspecified urinary incontinence SNOMED: 353708497 (6) Peripheral vascular disease ICD Codes: I73.9 - Peripheral vascular disease, unspecified SNOMED: 871450671 (7) Diastolic CHF with preserved left ventricular function, NYHA class 2 ICD Codes: I50.30 - Unspecified diastolic (congestive) heart failure SNOMED: 736989858, 045274240, 861968561, 153336249 (8) Status post kidney transplant ICD Codes: Z94.0 - Kidney transplant status SNOMED: 24259857, 295723125 Status: stable, progressing Assessment/Plan cont wound care by staff. pt instructed not to do her own wound care turn encourage pos pain rx xarelto for dvt monitor for bleeding. await snf Subjective ROS Limited/Unobtainable: No Constitutional: Reports: weakness HEENT: Reports: no symptoms Cardiovascular: Reports: no symptoms Respiratory: Reports: no symptoms Gastrointestinal/Abdominal: Reports: no symptoms Genitourinary: Reports: no symptoms Neurologic/Psychiatric: Reports: no symptoms Endocrine: Reports: no symptoms Hematologic/Lymphatic: Reports: anemia Allergies: Coded Allergies: No Known Allergies (Verified , 05/29/09) All Systems: reviewed and negative except above Subjective no new complaints. pain controlled. no cp/sob. doing her own wound care??? Objective Last 24 Hour Vital Signs Date Time Temp Pulse Resp B/P Pulse Ox O2 Delivery O2 Flow Rate FiO2 01/25/17 06:11 97.0 01/25/17 05:52 128/71 01/25/17 05:52 128/71 01/25/17 04:00 97.0 80 18 128/71 97 Room Air 01/25/17 00:00 111/69 01/25/17 00:00 97.7 85 20 133/65 99 Room Air 01/24/17 22:44 97.5 01/24/17 21:45 111/69 01/24/17 19:00 96.3 83 18 111/69 97 Room Air 01/24/17 17:02 110/68 01/24/17 16:38 97.5 83 20 110/68 99 Room Air 01/24/17 13:22 132/62 01/24/17 12:00 132/62 01/24/17 11:52 97.9 87 18 132/62 99 Room Air 01/24/17 08:33 79 128/57 01/24/17 08:19 97.7 79 20 128/57 94 Room Air Intake and Output 01/24/17 01/25/17 19:00 07:00 Intake Total 1285.0 ml 1327.5 ml Balance 1285.0 ml 1327.5 ml Intake Oral 720 ml 540 ml IV Total 565.0 ml 787.5 ml # Voids 2 5 # Bowel Movements 1 Height (Feet): 5 Height (Inches): 6.00 Weight (Pounds): 150 General Appearance: WD/WN, alert Neck: supple Cardiovascular: regular rhythm Respiratory/Chest: lungs clear, normal breath sounds, no respiratory distress, no accessory muscle use Abdomen: normal bowel sounds, non tender, soft, no organomegaly Edema: no edema noted Arm (L), no edema noted Arm (R), no edema noted Leg (L), no edema noted Leg (R), no edema noted Pedal (L), no edema noted Pedal (R), no edema noted Generalized 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
[2017-01-25 08:09] VITALS: BP 145/72
[2017-01-25] MEDS: Ascorbic Acid 500mg tab ORAL SCH (08:44)
[2017-01-25] MEDS: Zinc Sulfate 220mg cap ORAL SCH (08:46)
[2017-01-25] MEDS: Furosemide 40mg tab ORAL SCH (08:46)
[2017-01-25] MEDS: MS Contin 15mg tab ORAL SCH ×2 (08:46→21:29)
[2017-01-25] MEDS: Aspirin EC 81mg tab ORAL SCH (08:47)
[2017-01-25] MEDS: Nephrovite tab ORAL SCH (08:47)
[2017-01-25] MEDS: cycloSPORINE 25mg cap ORAL SCH ×2 (08:48→17:14)
[2017-01-25] MEDS: azaTHIOprine 50 MG TAB ORAL SCH (08:49)
[2017-01-25] MEDS: Lyrica 50mg cap ORAL SCH ×2 (08:51→17:13)
--- NOTE | 2017-01-25 11:33 | Nephrology Progress Note ---
Assessment/Plan Problem List: (1) UTI (urinary tract infection) (2) Status post kidney transplant (3) Diastolic CHF with preserved left ventricular function, NYHA class 2 Plan Abxs follow labs Subjective Subjective feels ok Objective Objective Last 24 Hour Vital Signs Date Time Temp Pulse Resp B/P Pulse Ox O2 Delivery O2 Flow Rate FiO2 01/25/17 09:45 97.7 01/25/17 08:44 81 145/72 01/25/17 08:09 97.7 81 20 145/72 99 Room Air 01/25/17 06:11 97.0 01/25/17 05:52 128/71 01/25/17 05:52 128/71 01/25/17 04:00 97.0 80 18 128/71 97 Room Air 01/25/17 00:00 111/69 01/25/17 00:00 97.7 85 20 133/65 99 Room Air 01/24/17 21:45 111/69 01/24/17 19:00 96.3 83 18 111/69 97 Room Air 01/24/17 17:02 110/68 01/24/17 16:38 97.5 83 20 110/68 99 Room Air 01/24/17 13:22 132/62 01/24/17 12:00 132/62 01/24/17 11:52 97.9 87 18 132/62 99 Room Air Intake and Output 01/24/17 01/25/17 19:00 07:00 Intake Total 1285.0 ml 1327.5 ml Balance 1285.0 ml 1327.5 ml Intake Oral 720 ml 540 ml IV Total 565.0 ml 787.5 ml # Voids 2 5 # Bowel Movements 1 Height (Feet): 5 Height (Inches): 6.00 Weight (Pounds): 150 Cardiovascular: normal rate Respiratory/Chest: lungs clear Extremities: other - edema HARMAN JI Jan 25, 2017 11:33
[2017-01-25 12:00] VITALS: BP 154/75
[2017-01-25 15:47] VITALS: BP 138/69
[2017-01-25] MEDS: Xarelto 15mg tab ORAL SCH (16:40)
[2017-01-25 20:00] VITALS: BP 140/75
[2017-01-26] VITALS: BP 124/61
[2017-01-26 04:00] VITALS: BP 150/71
[2017-01-26] MEDS: guaiFENesin 100mg/5ml Liq ud ORAL SCH ×2 (05:00→11:00)
[2017-01-26] MEDS: Piperacillin/Tazobactam 3.375 GM in D5W 110 ML IVPB SCH (05:07)
[2017-01-26] MEDS: HydrALAZINE 25mg tab ORAL SCH (05:08)
--- NOTE | 2017-01-26 05:49 | Progress Note ---
DATE: 01/19/2017 CARDIOLOGY PROGRESS NOTE OBJECTIVE: GENERAL: No new complaints. No chest pain. Oral intake better. VITAL SIGNS: Afebrile and blood pressure 128/71. NECK: Supple. LUNGS: Clear. CARDIAC: Regular. Normal S1, S2 with a fourth heart sound. ABDOMEN: Soft palpable. Right-sided kidney transplant. No edema right BKA. IMPRESSION: 1. Decubitus wound. 2. Renal transplant. 3. Hypertensive heart disease. 4. Hypovolemia and dehydration. 5. Pain from decubitus. 6. History of deep venous thrombosis. PLAN: Antibiotics, wound care, respiratory hygiene, cardiovert, prophylaxis with rivaroxaban, type 2 diabetic regimen. Discharge planning. Matthew Tinajero M.D. DR: Faizan JOB#: [id number] CC:
--- NOTE | 2017-01-26 06:19 | Progress Note ---
DATE: 01/24/2017 CARDIOLOGY PROGRESS NOTE Late entry. SUBJECTIVE: The patient was seen with the social director of anesthesia services. Efforts are being made to assist with her at the apartment. She was not accepted at the [facility] facility as of yet. The patient still has pain from her wound. She has no shortness of breath. OBJECTIVE: VITAL SIGNS: Blood pressure of 110/68, pulse 83, and respirations 20. NECK: Supple. LUNGS: Clear. CARDIAC: Regular rhythm and rate. Normal S1 and S2 with a fourth heart sound. ABDOMEN: Soft, palpable. Renal transplant site. EXTREMITIES: Right BKA. No edema. IMPRESSION: Stable. PLAN: 1. Continue wound care. 2. Antibiotics. 3. Nutritional support and protein supplementation. 4. Xarelto for history of DVT. 5. Titrate antihypertensives. 6. Maintain adequate hydration with IV fluids as needed. Matthew Tinajero M.D. DR: ASHLEIGH JOB#: [id number] CC:
[2017-01-26 07:40] LABS: ANION GAP 14 (5-15); CALCIUM 9.5 mg/dL (8.6-10.2); CARBON DIOXIDE 29 mEQ/L (20-30); CHLORIDE 98 mEQ/L (98-107); CREATININE 1.1 mg/dL (0.5-0.9); HEMOLYSIS 1; POTASSIUM 3.5 mEQ/L (3.4-4.9); SODIUM 141 mEQ/L (135-145)
[2017-01-26 08:00] VITALS: BP 107/57
--- NOTE | 2017-01-26 08:13 | General Progress Note ---
Assessment/Plan Problem List: (1) Abdominal pain (2) Dehydration ICD Codes: E86.0 - Dehydration SNOMED: 52748723 (3) Urinary tract infection (4) Encephalopathy acute ICD Codes: G93.40 - Encephalopathy acute SNOMED: 1279791 (5) Incontinence of urine in female ICD Codes: R32 - Unspecified urinary incontinence SNOMED: 416587787 (6) Peripheral vascular disease ICD Codes: I73.9 - Peripheral vascular disease, unspecified SNOMED: 979596718 (7) Diastolic CHF with preserved left ventricular function, NYHA class 2 ICD Codes: I50.30 - Unspecified diastolic (congestive) heart failure SNOMED: 653894419, 316239211, 328185237, 393359898 (8) Status post kidney transplant ICD Codes: Z94.0 - Kidney transplant status SNOMED: 88892700, 786163892 Status: stable, progressing Assessment/Plan cont wound care by staff. turn encourage pos pain rx xarelto for dvt monitor for bleeding. await snf. stable for dc. Subjective ROS Limited/Unobtainable: No Constitutional: Reports: malaise, weakness HEENT: Reports: no symptoms Cardiovascular: Reports: no symptoms Respiratory: Reports: no symptoms Gastrointestinal/Abdominal: Reports: no symptoms Genitourinary: Reports: no symptoms Neurologic/Psychiatric: Reports: depressed Endocrine: Reports: no symptoms Hematologic/Lymphatic: Reports: no symptoms Allergies: Coded Allergies: No Known Allergies (Verified , 05/29/09) All Systems: reviewed and negative except above Subjective no new complaints. pain controlled. no cp/sob. Objective Last 24 Hour Vital Signs Date Time Temp Pulse Resp B/P Pulse Ox O2 Delivery O2 Flow Rate FiO2 01/26/17 05:43 97.7 01/26/17 05:08 150/71 01/26/17 05:08 150/71 01/26/17 04:00 97.7 77 21 150/71 99 Room Air 01/26/17 00:00 97.6 77 20 124/61 96 Room Air 01/26/17 00:00 124/61 01/25/17 22:33 97.8 01/25/17 21:29 140/75 01/25/17 20:00 97.8 76 20 140/75 98 Room Air 01/25/17 17:13 138/69 01/25/17 15:47 97.7 84 20 138/69 99 Room Air 01/25/17 13:39 154/75 01/25/17 13:39 154/75 01/25/17 12:00 97.5 77 18 154/75 100 Room Air 01/25/17 08:44 81 145/72 Intake and Output 01/25/17 01/26/17 18:59 06:59 Intake Total 1092.5 ml 1197.5 ml Output Total 3 ml Balance 1092.5 ml 1194.5 ml Intake Oral 360 ml IV Total 1092.5 ml 837.5 ml Output Urine Total 3 ml Laboratory Tests 01/26/17 06:00: Sodium Level 141, Potassium Level 3.5, Chloride Level 98, Carbon Dioxide Level 29, Anion Gap 14, Blood Urea Nitrogen 31H, Creatinine 1.1H, Estimat Glomerular Filtration Rate , Glucose Level 125H, Calcium Level 9.5 Height (Feet): 5 Height (Inches): 6.00 Weight (Pounds): 150 Objective General Appearance: WD/WN, alert Neck: supple Cardiovascular: regular rhythm Respiratory/Chest: lungs clear, normal breath sounds, no respiratory distress, no accessory muscle use Abdomen: normal bowel sounds, non tender, soft, no organomegaly Edema: no edema noted Arm (L), no edema noted Arm (R), no edema noted Leg (L), no edema noted Leg (R), no edema noted Pedal (L), no edema noted Pedal (R), no edema noted Generalized 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
[2017-01-26] MEDS: Lyrica 50mg cap ORAL SCH (09:16)
[2017-01-26] MEDS: Nephrovite tab ORAL SCH (09:16)
[2017-01-26] MEDS: azaTHIOprine 50 MG TAB ORAL SCH (09:17)
[2017-01-26] MEDS: Aspirin EC 81mg tab ORAL SCH (09:17)
[2017-01-26] MEDS: Ascorbic Acid 500mg tab ORAL SCH (09:17)
[2017-01-26] MEDS: Furosemide 40mg tab ORAL SCH (09:17)
[2017-01-26] MEDS: Zinc Sulfate 220mg cap ORAL SCH (09:17)
[2017-01-26] MEDS: MS Contin 15mg tab ORAL SCH (09:18)
[2017-01-26] MEDS: cycloSPORINE 25mg cap ORAL SCH (09:18)
[2017-01-26] MEDS ORDERED: ASCORBIC ACID500 MG ORAL ×2 (11:32→11:45)
[2017-01-26] MEDS ORDERED: FLUDROCORTISON0.1 MG PO (11:34)
[2017-01-26] MEDS ORDERED: HYDRALAZINE HCL25 M2 PO (11:40)
[2017-01-26] MEDS ORDERED: AKWA TEARS15 ML BOTH EYES ×2 (11:41→11:45)
[2017-01-26] MEDS ORDERED: HYDROMORPHO2 MG/1 M5 IJ (11:50)
[2017-01-26 12:00] VITALS: BP 130/75
[2017-01-26 12:54] VITALS: BP 130/75
--- NOTE | 2017-01-27 14:58 | Discharge Summary ---
Discharge Summary Hospital Course Date of Admission Jan 19, 2017 at 11:49 Date of Discharge Jan 26, 2017 at 13:55 Admitting Diagnosis HPI Jazzmine Jones is a 77 year old female who was admitted on Jan 19, 2017 at 11: 49 for [facility] Hospital Course dc summary #[id number] Discharge Medications Continued Medications: Acetaminophen (Acetaminophen 8 Hour) 650 Mg Tablet 650 MG ORAL Q6H, TAB Amlodipine Besylate (Norvasc) 5 Mg Tablet 5 MG ORAL DAILY for 28 Days, TAB Aspirin (Aspirin EC) 81 Mg Tabec 81 MG ORAL DAILY, TAB Azathioprine* (Imuran*) 50 Mg Tablet 75 MG PO DAILY, TAB Clonidine Hcl* (Catapres*) 0.1 Mg Tablet 0.1 MG ORAL EVERY 6 HOURS, TAB Cyclosporine* (Cyclosporine*) 100 Mg Capsule 100 MG PO BID, CAP Dextran 70/Hypromellose (Artificial Tears Eye Drops*) 15 Ml Drops 1 DROP BOTH EYES TID PRN for Dry Eyes, #15 ML 0 Refills Ferrous Sulfate (Feosol) 325 Mg Tablet 325 MG ORAL TWICE A DAY for 30 Days, TAB Furosemide* (Lasix*) 40 Mg Tablet 40 MG ORAL DAILY, TAB Guaifenesin (Guaifenesin) 100 Mg/5 Ml Syrp 200 MG ORAL Q6H, #1 ML 0 Refills Hydralazine Hcl* (Hydralazine Hcl*) 25 Mg Tablet 25 MG ORAL EVERY 8 HOURS for 30 Days, TAB Hydromorphone Hcl/Pf (Hydromorphone 2 Mg/Ml Syringe*) 2 Mg/1 Ml Disp.syrin 2 MG IJ Q4HR PRN for Moderate Breakthru Pain (5-7), EA 0 Refills Morphine Sulfate (Morphine Sulfate) 15 Mg Tabcr 15 MG ORAL EVERY 12 HOURS, #30 TAB 0 Refills Multivit With Calcium,Iron,Min (Essential Daily) 1 Each Tablet 1 EACH PO, TAB Pantoprazole* (Protonix*) 40 Mg Tablet.dr 40 MG ORAL DAILY for 30 Days, TAB Pregabalin (Lyrica) 50 Mg Capsule 100 MG ORAL BID for 30 Days, CAP Rivaroxaban (Xarelto) 15 Mg Tablet 15 MG ORAL QPM, #30 TAB Temazepam (Restoril*) 30 Mg Capsule 30 MG ORAL BEDTIME Zinc Amino Acid Chelate (Zinc) 50 Mg Tablet 220 MG ORAL, TAB Discharge Condition Upon Discharge: stable Discharge Disposition Patient was discharged to SNF/Subacute Facility(03) Discharge Diagnoses: Discharge Instructions Discharge Instructions Special Instructions I have been assigned to complete a D/C Summary on this account. I was not involved in the patient management Amy Morataya NP (Vanchtein) Jan 27, 2017 14:58
--- NOTE | 2017-01-27 23:48 | Progress Note ---
DATE: 01/26/2017 CARDIOLOGY PROGRESS NOTE SUBJECTIVE: The patient has no pain. Denies shortness of breath, nausea, or vomiting. Continues on wound care. OBJECTIVE: VITAL SIGNS: Afebrile, blood pressure 150/71, heart rate 77, and respiratory rate 20. LUNGS: Clear. CARDIAC: Regular rhythm and rate. Normal S1, S2 and a fourth heart sound. ABDOMEN: Soft. Palpable renal transplant site. EXTREMITIES: Without edema. Right BKA stump is dry. IMPRESSION: 1. sacral wounds and renal transplant. 2. Prerenal azotemia. 3. Hypertensive heart disease. 4. Chronic diastolic congestive heart failure. 5. Right lower extremity amputee. 6. Insulin-requiring diabetes with complications, therapy in place. PLAN: 1. Wound care. 2. Titrate antihypertensive. 3. Insulin coverage by titration and sliding scale. 4. Antimicrobials and local skin care. 5. Protein supplement. 6. Maintain adequate hydration. Matthew Tinajero M.D. DR: Ciera JOB#: [id number] CC:
--- NOTE | 2017-01-28 07:57 | Discharge Summary 2 SIG ---
DATE OF ADMISSION: 01/19/2017 DATE OF DISCHARGE: 01/26/2017 REASON FOR ADMISSION: This is a 77-year-old female with a history of kidney transplant, hypertension, diabetes, peripheral arterial disease, right below-knee amputation, history of DVT, and left femur fracture, status post open reduction and internal fixation, presented with a complaint of sacral wound. The patient was cared for by family at home. According to the patient, she had been urinating frequently and she did admit to some time being incontinent, not change herself, but informed family she was wet in a timely fashion. She presented to the office with multiple sacral decubitus that have not been improving at home. She was admitted for further evaluation here and possible placement to [facility]. She denied fever and denied chills. She had no chest pain or shortness of breath. ADMITTING DIAGNOSES: 1. Sacral wound, rule out fecal impaction. 2. Sacral decubitus stage III, present on admission. 3. Sacral decubitus, left ischial tuberosity, present on admission. 4. Hypertensive heart disease. 5. Diabetes mellitus type 2. 6. Peripheral arterial disease amputation (right [id number] amputation). 7. History of kidney transplant. 8. Chronic kidney disease. 9. Diastolic congestive heart failure with preserved ejection fraction NYHA class 2. 10. History of deep venous thrombosis. 11. Chronic kidney disease. HOSPITAL STAY: The patient admitted. Nephrology and Cardiology consults were requested. So wound care nurse evaluation was done, wound care was continued as per wound care nurse recommendation, and according to the wound care protocol Cardiology followed. Cardiac regimen optimized as per reduction furnace operator helper including antihypertensive and cardiac medications. Xarelto was continued due to the history of the DVT. Blood pressure was managed with calcium channel rosina, hydralazine, as well as and was stable. Buildings And Grounds Coordinator followed the patient and reported that the patient should continue with the same immunosuppression regimen since there is no evidence of sepsis. Bowel regimen instituted. Renal parameters and electrolytes were closely monitored. The patient was initially on empiric antibiotics. Urine culture positive for E. coli, ESBL, Klebsiella, and then wound culture was positive for Klebsiella, E. coli, ESBL, Proteus, and MRSA. DVT prophylaxis provided. Pain management was addressed. The patient needs to have pacemaker interrogation to be done as an outpatient. [facility] facility was found for the patient to be discharged. Blood sugar management with sliding scale of insulin was stable. The patient was stable for discharge to alf facility. DISCHARGE DIAGNOSES: 1. Sacral decubitus, stage III, present on admission. 2. Urinary tract infection, Klebsiella, Escherichia coli, Extended-spectrum beta-lactamases. 3. Acute encephalopathy. 4. Urinary incontinence. 5. Left ischial tuberosity stage III, present on admission. 6. Hypertensive heart disease. 7. Diabetes mellitus type 2. 8. Peripheral arterial disease amputation (right kwycb-crn-yxku amputation). 9. History of kidney transplant. 10. Chronic kidney disease. 11. Diastolic congestive heart failure with preserved ejection fraction and [place] Heart Association class 2. 12. History of deep venous thrombosis. DISCHARGE MEDICATIONS: See medication reconciliation list. DISCHARGE INSTRUCTIONS: The patient is to follow up with medical doctor at the facility. John Red M.D. I have been assigned to dictate discharge summary on this account and I was not involved in the patient's management. Amy Guevarast. [facility] health centerRustam NRosioPRosio DR: Stephanie JOB#: [id number] CC:
== END 2017-01-26 13:55 | DRG 592 ==
LOC: 4W 11:49
DX: L89.153 Pressure ulcer of sacral region, stage 3 (principal); G93.40 Encephalopathy, unspecified; E11.40 Type 2 diabetes mellitus with diabetic neuropathy, unspecified; I13.0 Hypertensive heart and chronic kidney disease with heart failure and stage 1 through stage 4 chronic kidney disease, or unspecified chronic kidney disease; I50.32 Chronic diastolic (congestive) heart failure; L03.90 Cellulitis, unspecified; N39.0 Urinary tract infection, site not specified; Z94.0 Kidney transplant status; E44.1 Mild protein-calorie malnutrition; E87.1 Hypo-osmolality and hyponatremia; L89.323 Pressure ulcer of left buttock, stage 3; I73.9 Peripheral vascular disease, unspecified; Z95.0 Presence of cardiac pacemaker; Z89.511 Acquired absence of right leg below knee; N18.9 Chronic kidney disease, unspecified; Z86.718 Personal history of other venous thrombosis and embolism; B96.1 Klebsiella pneumoniae [K. pneumoniae] as the cause of diseases classified elsewhere; B96.20 Unspecified Escherichia coli [E. coli] as the cause of diseases classified elsewhere; Z16.12 Extended spectrum beta lactamase (ESBL) resistance; B95.62 Methicillin resistant Staphylococcus aureus infection as the cause of diseases classified elsewhere; R32 Unspecified urinary incontinence; E83.42 Hypomagnesemia; E86.0 Dehydration; R10.9 Unspecified abdominal pain; E86.1 Hypovolemia
CPT/HCPCS: 36415; 80048; 80053; 81001; 82962; 83735; 83880; 84443; 84484; 85025; 87070; 87086; 87181; 87205

== ENCOUNTER 2017-03-05 12:02 | Inpatient (IN) | payer MEDICARE, MEDICAID ==
[~2017-03-05] VITALS: Ht 167.6 cm; Wt 60.8 kg
[~2017-03-05 12:02] MED LIST changes: +AKWA TEARS15 ML BOTH EYES; +ASCORBIC ACID500 MG ORAL; +FLUDROCORTISON0.1 MG PO; +HYDRALAZINE HCL25 M2 PO; +HYDROMORPHO2 MG/1 M5 IJ
[2017-03-05 16:00] VITALS: BP 142/70
[2017-03-05] MEDS ORDERED: HYDROmorphone 1mg/ml Carpuject IVP PRN ×2 (16:15→20:12)
[2017-03-05] MEDS ORDERED: HYDROmorphone 2 MG in NS 55 ML IVPB PRN (20:15)
[2017-03-05] MEDS ORDERED: guaiFENesin 100mg/5ml Liq ud ORAL PRN (20:15)
[2017-03-05 20:56] VITALS: BP 134/70
[2017-03-05 21:18] LABS: BASOPHILS % (AUTO) 1.3 % (0.0-2.0); EOSINOPHILS % (AUTO) 0.2 % (0.0-3.0); LYMPHOCYTES % (AUTO) 24.3 % (20.0-45.0); MEAN CORPUSCULAR HEMOGLOBIN 33.6 PG (27.0-31.0); MEAN CORPUSCULAR HGB CONC 34.9 G/DL (32.0-36.0); MEAN CORPUSCULAR VOLUME 96 FL (80-99); MEAN PLATELET VOLUME 9.3 FL (6.5-10.1); MONOCYTES % (AUTO) 5.7 % (1.0-10.0); NEUTROPHILS % (AUTO) 68.4 % (45.0-75.0); PLATELET COUNT 148 K/UL (150-450); RED BLOOD COUNT 3.22 M/UL (4.20-5.40); RED CELL DISTRIBUTION WIDTH 14.4 % (11.6-14.8); WHITE BLOOD COUNT 7.3 K/UL (4.8-10.8)
[2017-03-05 21:26] LABS: ALANINE AMINOTRANSFERASE 5 U/L (3-33); ALBUMIN/GLOBULIN RATIO 0.8 (1.0-2.7); ANION GAP 17 (5-15); ASPARTATE AMINO TRANSFERASE 9 U/L (5-40); CALCIUM 9.3 mg/dL (8.6-10.2); CARBON DIOXIDE 25 mEQ/L (20-30); CHLORIDE 98 mEQ/L (98-107); CREATININE 0.9 mg/dL (0.5-0.9); HEMOLYSIS 2; POTASSIUM 3.4 mEQ/L (3.4-4.9); SODIUM 140 mEQ/L (135-145); TOTAL PROTEIN 7.7 g/dL (6.6-8.7)
[2017-03-05] MEDS: MS Contin 15mg tab ORAL SCH (21:41)
[2017-03-05] MEDS: cycloSPORINE 25mg cap ORAL SCH (22:58)
[2017-03-06] VITALS: BP 151/80
--- NOTE | 2017-03-06 03:15 | History and Physical Report ---
DATE OF ADMISSION: 03/05/2017 CHIEF COMPLAINT: Diarrhea, dehydration, and SVT. HISTORY OF PRESENT ILLNESS: The patient is a pleasant 77-year-old female. She has a history of a BKA, hypertension, DVT, and conduction system disease, status post pacemaker. She presented from home to the office initially with complaints of syncopal episode as well as intractable diarrhea and dizziness. According to the patient, she was well until several days prior to admission. She developed severe diarrhea. She had a fainting spell while going down the stairs, but was caught by family members. In the office, the patient was tachycardic to 120. In light of the patient's diarrhea, syncope, and the tachycardia, she is now admitted for further evaluation and care. She denies any fevers or chills. She has had no chest pain. She continues to have chronic pain and phantom limb pain. There are no reports of any ill contacts. She denies hematemesis. Family knows that she has had some dark stools. PAST MEDICAL HISTORY: As above. PAST SURGICAL HISTORY: Includes a BKA, kidney transplant, and pacemaker. CURRENT MEDICATIONS: Reconciled and reviewed. ALLERGIES: None. FAMILY HISTORY: None. SOCIAL HISTORY: Negative for tobacco, ethanol, or drugs. REVIEW OF SYSTEMS: General: Positive for fevers and chills. No night sweats. HEENT: No headaches or visual changes. Cardiopulmonary: No chest pain or shortness of breath. Gastrointestinal: Positive diarrhea. Genitourinary: No urgency or frequency. Musculoskeletal: No dependent swelling. Neurologic: No evidence of seizures. PHYSICAL EXAMINATION: VITAL SIGNS: Temperature 99 degrees, blood pressure 142/70, pulse 125, and respirations 18. GENERAL: The patient is in no apparent distress. She is thin and frail. Awake and alert. NECK: Supple. No jugular venous distention. HEART: Tachycardic, but regular. LUNGS: Clear. ABDOMEN: Soft, nontender, and nondistended. EXTREMITIES: Shows no clubbing or cyanosis. There is a right BKA. SKIN: There is a sacral wound noted. LABORATORY DATA: Pending. ASSESSMENT: This is a pleasant female with multiple syncopal episodes suspect secondary to dehydration, tachycardia, diarrhea, possible gastrointestinal bleed, kidney transplant, peripheral artery disease, and chronic pain. PLAN: Aggressive fluid resuscitation. Check laboratories. We will consider antibiotics for possible colitis versus urinary tract infection. Continue pain regimen. Check the stool for occult blood. The patient's status is currently guarded. John Red M.D. DR: YISSEL JOB#: [id number] CC:
[2017-03-06 04:00] VITALS: BP 136/69
[2017-03-06 05:53] LABS: APPEARANCE,URINE CLOUDY; KETONES,URINE NEGATIVE (NEGATIVE); LEUKOCYTE ESTERASE ,URINE 3+ (NEGATIVE); NITRITE,URINE NEGATIVE (NEGATIVE); PH,URINE 6.5 (4.5-8.0); PROTEIN,URINE 3+ (NEGATIVE); UROBILINOGEN,URINE 1 MG/DL (0.0-1.0)
[2017-03-06 05:58] LABS: BACTERIA,URINE MANY /HPF; SQUAMOUS EPITHELIAL CELL,UR FEW /LPF (NONE/OCC); WBC,URINE TNTC /HPF (0 - 2); YEAST,URINE FEW /HPF
[2017-03-06] MEDS ORDERED: Lidocaine 1% Plain 30 ml INJ ONE (06:45)
[2017-03-06] MEDS ORDERED: Sodium Bicarbonate 4% 2.4meq/5ml vial INJ ONE (06:45)
[2017-03-06] MEDS ORDERED: Heparin 2000 units/Ns 1000ml INJ ONE (06:45)
--- NOTE | 2017-03-06 06:49 | General Progress Note ---
Assessment/Plan Problem List: (1) GIB (gastrointestinal bleeding) ICD Codes: K92.2 - Gastrointestinal hemorrhage, unspecified SNOMED: 06265711 (2) Diarrhea ICD Codes: R19.7 - Diarrhea SNOMED: 18820008 (3) Syncope ICD Codes: R55 - Syncope and collapse SNOMED: 301984223 (4) Peripheral vascular disease ICD Codes: I73.9 - Peripheral vascular disease, unspecified SNOMED: 927303072 (5) Abdominal pain (6) Encephalopathy acute ICD Codes: G93.40 - Encephalopathy acute SNOMED: 6634455 (7) Dehydration ICD Codes: E86.0 - Dehydration SNOMED: 73222265 Status: stable Assessment/Plan iv abx follow up urine cultures antidiarrheal rx chek cdiff IVF picc line xarelto Subjective ROS Limited/Unobtainable: No Constitutional: Reports: malaise, weakness HEENT: Reports: no symptoms Cardiovascular: Reports: no symptoms Respiratory: Reports: no symptoms Gastrointestinal/Abdominal: Reports: diarrhea Genitourinary: Reports: no symptoms Neurologic/Psychiatric: Reports: paresthesia Endocrine: Reports: no symptoms Hematologic/Lymphatic: Reports: anemia Allergies: Coded Allergies: No Known Allergies (Verified , 05/29/09) All Systems: reviewed and negative except above Subjective c/o diarrhea. c/o phantom limb pain. no chest pain no sob. no fevers. . Objective Last 24 Hour Vital Signs Date Time Temp Pulse Resp B/P Pulse Ox O2 Delivery O2 Flow Rate FiO2 03/06/17 04:00 76 03/06/17 00:00 80 03/06/17 00:00 98.6 80 18 151/80 100 Room Air 03/05/17 20:59 98.1 03/05/17 20:56 98.1 83 19 134/70 99 Room Air 03/05/17 20:00 75 03/05/17 16:00 99.0 18 142/70 94 03/05/17 16:00 125 Intake and Output 03/05/17 03/06/17 19:00 07:00 Intake Total 200 ml 600 ml Balance 200 ml 600 ml Intake Oral 200 ml IV Total 600 ml # Bowel Movements 2 Laboratory Tests 03/05/17 16:00: Stool Occult Blood Negative 03/05/17 20:40: White Blood Count 7.3, Red Blood Count 3.22L, Hemoglobin 10.8L, Hematocrit 31.1L , Mean Corpuscular Volume 96, Mean Corpuscular Hemoglobin 33.6H, Mean Corpuscular Hemoglobin Concent 34.9, Red Cell Distribution Width 14.4, Platelet Count 148L, Mean Platelet Volume 9.3, Neutrophils (%) (Auto) 68.4, Lymphocytes ( %) (Auto) 24.3, Monocytes (%) (Auto) 5.7, Eosinophils (%) (Auto) 0.2, Basophils (%) (Auto) 1.3, Sodium Level 140, Potassium Level 3.4, Chloride Level 98, Carbon Dioxide Level 25, Anion Gap 17H, Blood Urea Nitrogen 12, Creatinine 0.9, Estimat Glomerular Filtration Rate , Glucose Level 163H, Calcium Level 9.3, Total Bilirubin 0.5, Aspartate Amino Transf (AST/SGOT) 9, Alanine Aminotransferase (ALT/SGPT) 5, Alkaline Phosphatase 90, Total Protein 7.7, Albumin 3.5, Globulin 4.2, Albumin/Globulin Ratio 0.8L 03/06/17 05:00: Urine Color Yellow, Urine Appearance Cloudy, Urine pH 6.5, Urine Specific Pollard 1.010, Urine Protein 3+H, Urine Glucose (UA) Negative, Urine Ketones Negative, Urine Occult Blood 1+H, Urine Nitrite Negative, Urine Bilirubin Negative, Urine Urobilinogen 1H, Urine Leukocyte Esterase 3+H, Urine RBC 2-4H, Urine WBC TntcH, Urine Squamous Epithelial Cells Few, Urine Bacteria ManyH, Urine Yeast FewH 03/06/17 06:25: White Blood Count [Pending], Red Blood Count [Pending], Hemoglobin [Pending], Hematocrit [Pending], Mean Corpuscular Volume [Pending], Mean Corpuscular Hemoglobin [Pending], Mean Corpuscular Hemoglobin Concent [Pending], Red Cell Distribution Width [Pending], Platelet Count [Pending], Mean Platelet Volume [ Pending], Neutrophils (%) (Auto) [Pending], Lymphocytes (%) (Auto) [Pending], Monocytes (%) (Auto) [Pending], Eosinophils (%) (Auto) [Pending], Basophils (%) (Auto) [Pending], Sodium Level [Pending], Potassium Level [Pending], Chloride Level [Pending], Carbon Dioxide Level [Pending], Blood Urea Nitrogen [Pending], Creatinine [Pending], Estimat Glomerular Filtration Rate [Pending], Glucose Level [Pending], Calcium Level [Pending], Total Bilirubin [Pending], Aspartate Amino Transf (AST/SGOT) [Pending], Alanine Aminotransferase (ALT/SGPT) [Pending] , Alkaline Phosphatase [Pending], Total Protein [Pending], Albumin [Pending], Globulin [Pending] Height (Feet): 5 Height (Inches): 6.00 Weight (Pounds): 134 General Appearance: WD/WN, alert Neck: supple Cardiovascular: regular rhythm Respiratory/Chest: lungs clear, normal breath sounds, no respiratory distress Abdomen: normal bowel sounds, non tender, soft, no organomegaly Edema: no edema noted Arm (L), no edema noted Arm (R), no edema noted Leg (L), no edema noted Leg (R), no edema noted Pedal (L), no edema noted Pedal (R), no edema noted Generalized Neurologic: rfid manager II-XII grossly normal, no motor/sensory deficits, alert, oriented x 3, responsive ANJUM BUCHANAN Mar 06, 2017 06:49
[2017-03-06 07:04] LABS: BASOPHILS % (AUTO) 1.2 % (0.0-2.0); EOSINOPHILS % (AUTO) 1.1 % (0.0-3.0); LYMPHOCYTES % (AUTO) 32.4 % (20.0-45.0); MEAN CORPUSCULAR HEMOGLOBIN 31.3 PG (27.0-31.0); MEAN CORPUSCULAR HGB CONC 32.2 G/DL (32.0-36.0); MEAN CORPUSCULAR VOLUME 97 FL (80-99); MEAN PLATELET VOLUME 9.6 FL (6.5-10.1); MONOCYTES % (AUTO) 7.2 % (1.0-10.0); NEUTROPHILS % (AUTO) 58.1 % (45.0-75.0); PLATELET COUNT 142 K/UL (150-450); RED BLOOD COUNT 3.33 M/UL (4.20-5.40)
[2017-03-06 07:32] LABS: ALANINE AMINOTRANSFERASE < 5 U/L (3-33); ALBUMIN/GLOBULIN RATIO 0.7 (1.0-2.7); ANION GAP 15 (5-15); ASPARTATE AMINO TRANSFERASE 12 U/L (5-40); CALCIUM 9.2 mg/dL (8.6-10.2); CARBON DIOXIDE 25 mEQ/L (20-30); CHLORIDE 101 mEQ/L (98-107); CREATININE 0.9 mg/dL (0.5-0.9); HEMOLYSIS 33; POTASSIUM 3.6 mEQ/L (3.4-4.9); SODIUM 141 mEQ/L (135-145); TOTAL PROTEIN 7.7 g/dL (6.6-8.7)
[2017-03-06 08:00] VITALS: BP 141/67
[2017-03-06] MEDS: cycloSPORINE 25mg cap ORAL SCH ×2 (08:26→21:53)
[2017-03-06] MEDS: Ascorbic Acid 500mg tab ORAL SCH (08:27)
[2017-03-06] MEDS: Xarelto 15mg tab ORAL SCH (08:27)
[2017-03-06] MEDS: Docusate 100mg cap ORAL SCH ×2 (08:28→17:43)
[2017-03-06] MEDS: MS Contin 15mg tab ORAL SCH ×3 (08:28→22:10)
[2017-03-06] MEDS: Dyna-Hex 2% Top Sol 8oz TOPIC SCH (08:29)
[2017-03-06] MEDS: azaTHIOprine 50 MG TAB ORAL SCH (08:48)
[2017-03-06] MEDS ORDERED: Piperacillin/Tazobactam 3.375 GM in D5W 110 ML IVPB SCH (09:00)
[2017-03-06 12:01] VITALS: BP 143/71
--- NOTE | 2017-03-06 12:06 | Diagnostic Imaging Report ---
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 The right upper extremity was prepped with alcohol. All elements of maximal sterile barrier technique were followed including usage of a cap, mask, sterile gown, sterile gloves, hand hygiene and a large sterile sheet. Sonographic evaluation of the upper extremity was performed demonstrating a patent and compressible basilic vein. Access was obtained under real-time ultrasound guidance and digital image was saved and archived. An .018 wire was introduced. Needle exchanged for a 5 Cypriot peel-away sheath. Measurements were obtained. A 5 Cypriot dual-lumen Power PICC line catheter was cut to 20 cm and introduced over the wire. Peel-away sheath and wire were removed.Catheter was secured to the skin using 2-0 Prolene suture. Both ports aspirate and flush easily. Fluoroscopic Images show distal tip in the superior vena cava. Total fluoroscopic time 0.5 minutes. Attempts at passing the catheter beyond the axillary vein was unsuccessful. Impression: Successful placement of an upper extremity PICC line catheter within a peripheral vein
[2017-03-06] MEDS: Piperacillin/Tazobactam 3.375 GM in D5W 110 ML IVPB SCH ×2 (12:58→21:48)
[2017-03-06 16:00] VITALS: BP 135/62
--- NOTE | 2017-03-06 16:01 | Wound Care Consultation ---
Wound Assessment Wound Assessment #1: Wound Present on Admission: Yes New Wound: No Status Change of Wound: No Wound Location Body Site Modif: mid Wound Location Body Site: sacral Wound Type: pressure ulcer Rodolfo Test: Does not Rodolfo Pressure Ulcer Stage: III Wound Thickness: Full Thickness Wound Length: 2.0 Wound Width: 1.5 Wound Depth: 0.1 Percent of Wound Success/Red: 100 Wound Drainage Description: Serosanguineous Wound Drainage Amount: Scant Wound Drainage Odor: None/Absent Tissue Surrounding Wound: Intact Wound General Appearance: Reddened Wound Assessment #2: Wound Number: #2 Wound Present on Admission: Yes New Wound: No Status Change of Wound: No Wound Location Body Site Modif: left Wound Location Body Site: ischial tuberosity Wound Type: pressure ulcer Rodolfo Test: Does not Rodolfo Pressure Ulcer Stage: III Wound Thickness: Full Thickness Wound Length: 3.5 Wound Width: 2.0 Wound Depth: 0.1 Percent of Wound Success/Red: 100 Wound Drainage Description: Serosanguineous Wound Drainage Amount: Scant Wound Drainage Odor: None/Absent Tissue Surrounding Wound: Intact Wound General Appearance: Reddened Wound Comment #1 Sacral stage III pressure ulcer #2 Left ischial tuberosity stage III pressure ulcer #3 Left trochanter full thickness scar tissue pressure ulcer -Sacral area stage III and Left ischial tuberosity stage III pressure ulcers , cleanse with saline, pat dry, apply Triad cream, cover with Biatain silicone daily and PRN soiled/dislodged -Turn and reposition -Low air loss overlay mattress -Optimize nutrition -Keep clean and dry -Offload left heel -Assess and f/u accordingly for any changes NANDA MILLS RN Mar 06, 2017 16:01
[2017-03-06 23:05] VITALS: BP 157/69
--- NOTE | 2017-03-07 00:15 | Progress Note ---
DATE: 03/06/2017 CARDIOLOGY PROGRESS NOTE SUBJECTIVE: The patient has not had any loss of consciousness. She feels a little better but still quite weak. She continues to have diarrhea with slight improvement. REVIEW OF SYSTEMS: The patient has a history of C. difficile in the past. PHYSICAL EXAMINATION: VITAL SIGNS: Blood pressure 151/80, pulse 88, respiratory rate 18. HEENT: Temporal wasting. Pale conjunctivae. Arcus senilis. Anicteric sclerae. Oropharynx clear. Mucous membranes dry. NECK: Supple. LUNGS: Clear. CARDIAC: Regular rhythm rate. Normal S1 and S2 with a fourth heart sound. ABDOMEN: Soft. Abdominal cavity with sites of renal transplant noted. EXTREMITIES: With right BKA otherwise no edema. LABORATORY DATA: Urinalysis are noted. IMPRESSION: 1. Toxic encephalopathy. 2. Possible gastrointestinal bleeding. 3. Diarrhea. 4. Hypovolemic and orthostatic syncope. 5. Urinary tract infection. 6. Sepsis. 7. Peripheral artery disease with right [id number] amputation. 8. Type 2 diabetes mellitus, diet controlled. 9. Hypertensive heart disease with chronic diastolic congestive heart failure compensated. 10. Permanent pacemaker without tachyarrhythmias. 11. History of deep venous thrombosis. PLAN: 1. Antimicrobials. 2. Stool studies. 3. Hydration. 4. Monitor volume status. 5. Cardiorenal parameters. 6. Continue Rivaroxaban for treatment of prior DVT and also benefit in the setting of possible atrial tachyarrhythmias. Matthew Tinajero M.D. DR: Jessica JOB#: [id number] CC:
--- NOTE | 2017-03-07 00:15 | Consultation ---
DATE OF CONSULTATION: 03/06/2017 CARDIOLOGY CONSULTATION: CONSULTING PHYSICIAN: Matthew Tinajero M.D. REQUESTING PHYSICIAN: John Red M.D. REASON FOR CONSULTATION: Tachycardia and possible SVT in the setting of permanent pacemaker. HISTORY OF PRESENT ILLNESS: This is a 77-year-old female, known to me from prior care. She was seen in the office after presenting to see Dr. Red with weakness, nausea, diarrhea, and dizziness. She also had a fainting spell, while walking down the stairs and was noted to have heart rates above 120 on our office evaluation. The patient had a permanent pacemaker that was last interrogated in December 2016 and noted to be functioning appropriately. The patient has not had any chest pain. PAST MEDICAL HISTORY: 1. Renal transplant. 2. Peripheral artery disease with right [id number]-ydz-fwrt amputation. 3. Hypertension with hypertensive heart disease. 4. History of deep venous thrombosis. 5. Conduction system disease with permanent pacemaker. 6. Paroxysmal supraventricular tachyarrhythmias. 7. Type 2 diabetes mellitus. 8. Diabetic neuropathy. 9. Chronic kidney disease. ALLERGIES: None. FAMILY HISTORY: Noncontributory. SOCIAL HISTORY: Distant smoking history. No alcohol or substance abuse. MEDICATIONS: Prior to admission, reviewed and reconciled. REVIEW OF SYSTEMS: She has had some fevers and chills. There is no history of flow-limiting coronary artery disease. She has had negative myocardial perfusion scans in the past. She has a permanent pacemaker as noted above and it is functioning appropriately based on recent interrogation. She had an echocardiogram in the last six months notable for normal ejection fraction, concentric hypertrophy, and diastolic relaxation abnormality. She does have a history of severe vascular disease and is status post right BKA. She has a kidney transplant. She is on immunosuppressive therapy. Her diabetes is managed by diet. There is no history of seizure or stroke. She has noticed some dark stools in the last few days. She has not noted any bright red blood per rectum. PHYSICAL EXAMINATION: VITAL SIGNS: Blood pressure is 140/70, pulse rate 125, respiratory rate 18, and temperature 99.0 degrees. HEENT: Temporal wasting. Arcus senilis. Anicteric sclerae. Dry mucous membranes. NECK: Supple. LUNGS: Clear. CARDIAC: Regular rhythm. Rapid rate. Normal S1 and S2 with a fourth heart sound. ABDOMEN: Soft and nontender. EXTREMITIES: Right BKA. Left foot has decreased capillary refill. No acute ischemic changes. DIAGNOSTIC AND LABORATORY DATA: The abdominal cavity does reveal renal transplant site protruding. There is a sacral wound that is pictured in the chart. Sodium is 140, potassium 3.4, bicarbonate 25, BUN 12, creatinine 0.9, and glucose 163. Albumin is 3.5. White count is 7.3 and hemoglobin 10.8. IMPRESSION: 1. Probable sepsis. 2. Possible urinary tract infection. 3. Renal transplant. 4. Dehydration and hypovolemia. 5. Possible gastrointestinal bleeding. 6. Secondary sinus tachycardia. 7. Paroxysmal supraventricular tachycardia. 8. Sinus node disease with permanent pacemaker. 9. Antihypertensive heart disease. 10. Diastolic dysfunction with no signs of acute congestive heart failure. 11. Peripheral artery disease with right ridbp-nto-mkqz amputation. PLAN: 1. Panculture. 2. Empiric antibiotics. 3. Hydration. 4. Check EKG. 5. Pain control. 6. Insulin coverage by sliding scale. 7. Monitor blood pressure parameters, if orthostatics. 8. Continue hydration. 9. If hypotensive, may need stress dose steroids. 10. We will follow. Matthew Tinajero M.D. DR: Venus JOB#: [id number] CC:
[2017-03-07 04:00] VITALS: BP 145/78
[2017-03-07] MEDS: Piperacillin/Tazobactam 3.375 GM in D5W 110 ML IVPB SCH ×3 (05:21→22:00)
[2017-03-07 07:35] VITALS: BP 156/78
--- NOTE | 2017-03-07 08:13 | General Progress Note ---
Assessment/Plan Problem List: (1) GIB (gastrointestinal bleeding) ICD Codes: K92.2 - Gastrointestinal hemorrhage, unspecified SNOMED: 19448403 (2) Diarrhea ICD Codes: R19.7 - Diarrhea SNOMED: 81708173 (3) Syncope ICD Codes: R55 - Syncope and collapse SNOMED: 591626304 (4) Peripheral vascular disease ICD Codes: I73.9 - Peripheral vascular disease, unspecified SNOMED: 293501801 (5) Abdominal pain (6) Encephalopathy acute ICD Codes: G93.40 - Encephalopathy acute SNOMED: 3016720 (7) Dehydration ICD Codes: E86.0 - Dehydration SNOMED: 20571917 Status: stable, progressing Assessment/Plan iv abx follow up urine cultures antidiarrheal rx chek cdiff check kub dc dilaudid. morphine trial for pain IVF picc line xarelto Subjective ROS Limited/Unobtainable: No Constitutional: Reports: malaise, weakness HEENT: Reports: no symptoms Cardiovascular: Reports: no symptoms Allergies: Coded Allergies: No Known Allergies (Verified , 05/29/09) Subjective c/o diarrhea. c/o phantom limb pain. no chest pain no sob. no fevers. c/o vomiting x 3. Objective Last 24 Hour Vital Signs Date Time Temp Pulse Resp B/P Pulse Ox O2 Delivery O2 Flow Rate FiO2 03/07/17 07:35 97.2 89 20 156/78 100 Room Air 03/07/17 04:00 97.5 76 20 145/78 100 Room Air 03/07/17 04:00 78 03/07/17 00:00 76 03/06/17 23:05 97.7 73 20 157/69 97 Room Air 03/06/17 19:10 68 03/06/17 16:00 97.2 79 18 135/62 98 Room Air 03/06/17 16:00 81 03/06/17 12:01 97.4 90 18 143/71 98 Room Air 03/06/17 12:00 82 03/06/17 08:27 79 141/67 Intake and Output 03/06/17 03/07/17 19:00 07:00 Intake Total 1430.0 ml 1287.8 ml Output Total 35 ml Balance 1430.0 ml 1252.8 ml Intake Oral 420 ml IV Total 1010.0 ml 1287.8 ml Emesis 35 ml # Voids 2 Height (Feet): 5 Height (Inches): 6.00 Weight (Pounds): 134 General Appearance: WD/WN, alert Neck: supple Cardiovascular: regular rhythm Respiratory/Chest: lungs clear Abdomen: normal bowel sounds, non tender, soft, no organomegaly 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
[2017-03-07] MEDS ORDERED: Piperacillin/Tazobactam 3.375 GM in D5W 110 ML IVPB SCH (08:15)
[2017-03-07] MEDS: Dyna-Hex 2% Top Sol 8oz TOPIC SCH (09:51)
[2017-03-07] MEDS: cycloSPORINE 25mg cap ORAL SCH ×2 (09:52→21:16)
[2017-03-07] MEDS: Morphine Sulfate 2mg/ml Inj IM PRN ×2 (09:52→17:34)
[2017-03-07] MEDS: MS Contin 15mg tab ORAL SCH ×2 (09:53→21:14)
[2017-03-07] MEDS: azaTHIOprine 50 MG TAB ORAL SCH (09:54)
[2017-03-07] MEDS: Ascorbic Acid 500mg tab ORAL SCH (09:54)
[2017-03-07] MEDS: Xarelto 15mg tab ORAL SCH (09:54)
[2017-03-07] MEDS: Docusate 100mg cap ORAL SCH ×2 (09:55→17:52)
[2017-03-07] MEDS ORDERED: Tubing IV Secondary IV ONE (10:27)
[2017-03-07] MEDS ORDERED: NS 275ml ONE (10:27)
[2017-03-07] MEDS: Metoclopramide 10mg/2ml Inj IVP PRN ×2 (10:39→17:46)
[2017-03-07 11:48] VITALS: BP 159/79
[2017-03-07 16:04] VITALS: BP 151/73
[2017-03-07 20:00] VITALS: BP 145/74
[2017-03-08] VITALS (7 sets, daily range): BP systolic 142–177; BP diastolic 74–95
[2017-03-08] MEDS: Piperacillin/Tazobactam 3.375 GM in D5W 110 ML IVPB SCH ×3 (05:49→23:00)
[2017-03-08 07:16] LABS: BASOPHILS % (AUTO) 0.9 % (0.0-2.0); EOSINOPHILS % (AUTO) 0.5 % (0.0-3.0); LYMPHOCYTES % (AUTO) 25.1 % (20.0-45.0); MEAN CORPUSCULAR HEMOGLOBIN 31.8 PG (27.0-31.0); MEAN CORPUSCULAR HGB CONC 34.5 G/DL (32.0-36.0); MEAN CORPUSCULAR VOLUME 92 FL (80-99); MEAN PLATELET VOLUME 9.6 FL (6.5-10.1); MONOCYTES % (AUTO) 4.9 % (1.0-10.0); NEUTROPHILS % (AUTO) 68.6 % (45.0-75.0); PLATELET COUNT 157 K/UL (150-450); RED BLOOD COUNT 3.36 M/UL (4.20-5.40); RED CELL DISTRIBUTION WIDTH 13.1 % (11.6-14.8); WHITE BLOOD COUNT 5.5 K/UL (4.8-10.8)
[2017-03-08 07:39] LABS: ALANINE AMINOTRANSFERASE 5 U/L (3-33); ALBUMIN/GLOBULIN RATIO 0.7 (1.0-2.7); ANION GAP 16 (5-15); ASPARTATE AMINO TRANSFERASE 13 U/L (5-40); CALCIUM 9.4 mg/dL (8.6-10.2); CARBON DIOXIDE 24 mEQ/L (20-30); CHLORIDE 100 mEQ/L (98-107); CREATININE 0.7 mg/dL (0.5-0.9); HEMOLYSIS 1; POTASSIUM 3.1 mEQ/L (3.4-4.9); SODIUM 140 mEQ/L (135-145); TOTAL PROTEIN 7.9 g/dL (6.6-8.7)
[2017-03-08] MEDS: Morphine Sulfate 2mg/ml Inj IM PRN ×3 (09:50→17:58)
[2017-03-08] MEDS: Ascorbic Acid 500mg tab ORAL SCH (09:50)
[2017-03-08] MEDS: cycloSPORINE 25mg cap ORAL SCH ×2 (09:51→20:54)
[2017-03-08] MEDS: azaTHIOprine 50 MG TAB ORAL SCH (09:51)
[2017-03-08] MEDS: MS Contin 15mg tab ORAL SCH ×2 (09:51→20:55)
[2017-03-08] MEDS: Docusate 100mg cap ORAL SCH ×2 (09:52→15:24)
[2017-03-08] MEDS: Dyna-Hex 2% Top Sol 8oz TOPIC SCH (09:53)
--- NOTE | 2017-03-08 10:30 | Progress Note ---
DATE: 03/07/2017 CARDIOLOGY PROGRESS NOTE SUBJECTIVE: The patient still has pain. Morphine has been initiated. She continues with diarrhea, C. diff is pending. She has no shortness of breath. She has had some vomiting. OBJECTIVE: VITAL SIGNS: Blood pressure 156/78, pulse 89, respiratory rate 20. LUNGS: Bilateral breath sounds. No rales. HEART: Regular rhythm and rate. Normal S1 and S2 with a fourth heart sound. ABDOMEN: Soft and nontender. No guarding or rebound. EXTREMITIES: Reveal right BKA stump and no edema. LABORATORY AND DIAGNOSTIC DATA: Culture of the buttocks wound has a gram-negative carlo. Urine culture is pending. C. diff is negative to date. IMPRESSION: 1. Diarrhea. 2. Hypovolemia. 3. Acute on chronic pain. 4. Renal transplant. 5. Permanent pacemaker. 6. Hypertensive heart disease. 7. Type 2 diabetes mellitus. 8. 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 9. History of deep vein thrombosis. PLAN: 1. Antibiotics. 2. Await final cultures. 3. Recheck chemistry panel. 4. Hydration to maintain adequate intake and replaced GI losses pain. 5. Titrate antihypertensives based on clinical parameters. 6. Continue immunosuppressive therapy for renal transplant. 7. Continue rivaroxaban for adequate anticoagulation in the setting of DVT. Matthew Tinajero M.D. DR: Chelsie JOB#: [id number] CC:
--- NOTE | 2017-03-08 11:40 | General Progress Note ---
Assessment/Plan Problem List: (1) GIB (gastrointestinal bleeding) ICD Codes: K92.2 - Gastrointestinal hemorrhage, unspecified SNOMED: 27857855 (2) Diarrhea ICD Codes: R19.7 - Diarrhea SNOMED: 30781252 (3) Syncope ICD Codes: R55 - Syncope and collapse SNOMED: 002170563 (4) Peripheral vascular disease ICD Codes: I73.9 - Peripheral vascular disease, unspecified SNOMED: 446025660 (5) Abdominal pain (6) Encephalopathy acute ICD Codes: G93.40 - Encephalopathy acute SNOMED: 9796430 (7) Dehydration ICD Codes: E86.0 - Dehydration SNOMED: 65640307 Assessment/Plan iv abx for uti follow up urine cultures antidiarrheal rx dc dilaudid. morphine trial for pain IVF picc line xarelto replace k and mg Subjective ROS Limited/Unobtainable: No Constitutional: Reports: malaise, weakness HEENT: Reports: no symptoms Cardiovascular: Reports: no symptoms Respiratory: Reports: no symptoms Gastrointestinal/Abdominal: Reports: difficulty swallowing Genitourinary: Reports: no symptoms Neurologic/Psychiatric: Reports: pre-existing deficit Endocrine: Reports: no symptoms Hematologic/Lymphatic: Reports: anemia Allergies: Coded Allergies: No Known Allergies (Verified , 05/29/09) All Systems: reviewed and negative except above Subjective diarrhea better. c/o phantom limb pain. no chest pain no sob. no fevers. accidentally pulled out picc line. low k and mg noted Objective Last 24 Hour Vital Signs Date Time Temp Pulse Resp B/P Pulse Ox O2 Delivery O2 Flow Rate FiO2 03/08/17 09:51 88 159/95 03/08/17 08:00 75 03/08/17 08:00 98.2 88 18 159/95 100 Room Air 03/08/17 04:00 75 03/08/17 04:00 96.1 92 18 165/75 99 Room Air 03/08/17 00:00 98.2 84 19 145/74 98 Room Air 03/08/17 00:00 78 03/07/17 20:00 98.2 84 19 145/74 98 Room Air 03/07/17 20:00 98.2 84 19 145/74 98 Room Air 03/07/17 20:00 88 03/07/17 16:04 97.0 80 20 151/73 97 Room Air 03/07/17 16:00 91 03/07/17 12:00 88 03/07/17 11:48 97.0 79 20 159/79 100 Room Air Intake and Output 03/07/17 03/08/17 19:00 07:00 Intake Total 1423.25 ml 300 ml Balance 1423.25 ml 300 ml Intake Oral 50 ml 100 ml IV Total 1373.25 ml 200 ml # Voids 3 2 Laboratory Tests 03/08/17 06:40: White Blood Count 5.5, Red Blood Count 3.36L, Hemoglobin 10.7L, Hematocrit 31.1L , Mean Corpuscular Volume 92, Mean Corpuscular Hemoglobin 31.8H, Mean Corpuscular Hemoglobin Concent 34.5, Red Cell Distribution Width 13.1, Platelet Count 157, Mean Platelet Volume 9.6, Neutrophils (%) (Auto) 68.6, Lymphocytes (% ) (Auto) 25.1, Monocytes (%) (Auto) 4.9, Eosinophils (%) (Auto) 0.5, Basophils ( %) (Auto) 0.9, Sodium Level 140, Potassium Level 3.1L, Chloride Level 100, Carbon Dioxide Level 24, Anion Gap 16H, Blood Urea Nitrogen 4L, Creatinine 0.7, Estimat Glomerular Filtration Rate , Glucose Level 138H, Calcium Level 9.4, Magnesium Level 1.2L, Total Bilirubin 0.8, Aspartate Amino Transf (AST/SGOT) 13 , Alanine Aminotransferase (ALT/SGPT) 5, Alkaline Phosphatase 91, Total Protein 7.9, Albumin 3.5, Globulin 4.4, Albumin/Globulin Ratio 0.7L Height (Feet): 5 Height (Inches): 6.00 Weight (Pounds): 134 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
[2017-03-08] MEDS: Magnesium Oxide 400mg tab ORAL SCH ×2 (14:06→17:58)
[2017-03-08] MEDS: Xarelto 15mg tab ORAL SCH (14:06)
--- NOTE | 2017-03-08 22:45 | Progress Note ---
DATE: 03/08/2017 CARDIOLOGY PROGRESS NOTE SUBJECTIVE: The patient is still with phantom limb pain. Diarrhea has improved. She denies chest pain or shortness of breath. PICC line was inadvertently removed. OBJECTIVE: VITAL SIGNS: Blood pressure 159/95, pulse 88, respirations 18 and afebrile. Right BKA. NECK: Supple. LUNGS: Clear. CARDIAC: Regular rhythm and rate. Normal S1 and S2 with a fourth heart sound. ABDOMEN: Soft. There is a transplanted kidney palpation on the right. LABORATORY DATA: White count 5.5 and hemoglobin 10.7. Potassium is 3.1. Magnesium is 1.2. IMPRESSION: 1. Diarrhea. 2. Urinary tract infection. 3. Poor peripheral intravenous access. 4. Hypokalemia. 5. Hypomagnesemia. 6. Permanent pacemaker. 7. Hypertensive heart disease with rising blood pressure range. 8. History of deep vein thrombosis on chronic anticoagulation. PLAN: 1. Central access. 2. Antimicrobials. 3. Oral replacement of potassium and magnesium until access is obtained. An intravenous magnesium is recommended. 4. Titration of antihypertensives. 5. Continue rivaroxaban for management of DVT. Matthew Tinajero M.D. DR: PATRICIA JOB#: [id number] CC:
[2017-03-09] VITALS (11 sets, daily range): BP systolic 141–182; BP diastolic 60–86
[2017-03-09] MEDS: Piperacillin/Tazobactam 3.375 GM in D5W 110 ML IVPB SCH ×3 (06:00→22:00)
--- NOTE | 2017-03-09 07:44 | General Progress Note ---
Assessment/Plan Problem List: (1) GIB (gastrointestinal bleeding) ICD Codes: K92.2 - Gastrointestinal hemorrhage, unspecified SNOMED: 53773182 (2) Diarrhea ICD Codes: R19.7 - Diarrhea SNOMED: 77140900 (3) Syncope ICD Codes: R55 - Syncope and collapse SNOMED: 095804022 (4) Peripheral vascular disease ICD Codes: I73.9 - Peripheral vascular disease, unspecified SNOMED: 554111648 (5) Abdominal pain (6) Encephalopathy acute ICD Codes: G93.40 - Encephalopathy acute SNOMED: 9450786 (7) Dehydration ICD Codes: E86.0 - Dehydration SNOMED: 25451947 Status: stable, progressing Assessment/Plan iv abx for uti follow up urine cultures antidiarrheal rx pain rx as is IVF picc line xarelto check labs to med surg Subjective ROS Limited/Unobtainable: No Constitutional: Reports: malaise, weakness HEENT: Reports: no symptoms Cardiovascular: Reports: no symptoms Gastrointestinal/Abdominal: Reports: diarrhea Genitourinary: Reports: no symptoms Neurologic/Psychiatric: Reports: paresthesia, pre-existing deficit Endocrine: Reports: no symptoms Hematologic/Lymphatic: Reports: anemia Allergies: Coded Allergies: No Known Allergies (Verified , 05/29/09) All Systems: reviewed and negative except above Subjective diarrhea better. c/o phantom limb pain. no chest pain no sob. no fevers. overall pain better controlled. Objective Last 24 Hour Vital Signs Date Time Temp Pulse Resp B/P Pulse Ox O2 Delivery O2 Flow Rate FiO2 03/09/17 03:46 98.6 76 19 151/78 98 Room Air 03/09/17 00:41 76 03/08/17 23:46 98.3 80 18 142/78 97 Room Air 03/08/17 23:04 85 03/08/17 20:55 82 149/80 03/08/17 20:01 98.8 87 19 177/92 95 Room Air 03/08/17 16:07 98.2 79 18 151/77 100 Room Air 03/08/17 16:00 75 03/08/17 13:36 80 03/08/17 12:01 97.7 89 18 154/83 97 Room Air 03/08/17 09:51 88 159/95 03/08/17 08:00 75 03/08/17 08:00 98.2 88 18 159/95 100 Room Air Intake and Output 03/08/17 03/09/17 19:00 07:00 Intake Total 120 ml Balance 120 ml Intake Oral 120 ml # Voids 2 3 Height (Feet): 5 Height (Inches): 6.00 Weight (Pounds): 134 Objective General Appearance: WD/WN, alert Neck: supple Cardiovascular: regular rhythm Respiratory/Chest: lungs clear Abdomen: normal bowel sounds, non tender, soft, no organomegaly 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
--- NOTE | 2017-03-09 08:52 | Diagnostic Imaging Report ---
Indication: Abdominal pain Comparison: 12/08/16 Single view of the abdomen obtained Findings: Bowel gas pattern is nonspecific. No mass, ectopic calcifications, or abnormal gas collections are identified. The bones are osteopenic. Impression: No acute findings
[2017-03-09] MEDS: Xarelto 15mg tab ORAL SCH (09:00)
[2017-03-09] MEDS: Dyna-Hex 2% Top Sol 8oz TOPIC SCH (09:00)
[2017-03-09 09:50] LABS: ALANINE AMINOTRANSFERASE 5 U/L (3-33); ALBUMIN/GLOBULIN RATIO 0.7 (1.0-2.7); ANION GAP 15 (5-15); ASPARTATE AMINO TRANSFERASE 13 U/L (5-40); CALCIUM 10.1 mg/dL (8.6-10.2); CARBON DIOXIDE 24 mEQ/L (20-30); CHLORIDE 99 mEQ/L (98-107); CREATININE 0.7 mg/dL (0.5-0.9); HEMOLYSIS 20; MAGNESIUM 1.3 mg/dL (1.7-2.5); POTASSIUM 4.3 mEQ/L (3.4-4.9); SODIUM 138 mEQ/L (135-145); TOTAL PROTEIN 8.5 g/dL (6.6-8.7)
[2017-03-09] MEDS: Docusate 100mg cap ORAL SCH ×2 (10:11→19:04)
[2017-03-09] MEDS: Ascorbic Acid 500mg tab ORAL SCH (10:12)
[2017-03-09] MEDS: cycloSPORINE 25mg cap ORAL SCH ×3 (10:12→21:04)
[2017-03-09] MEDS: Magnesium Oxide 400mg tab ORAL SCH ×3 (10:12→19:04)
[2017-03-09] MEDS: azaTHIOprine 50 MG TAB ORAL SCH (10:12)
[2017-03-09] MEDS: MS Contin 15mg tab ORAL SCH ×3 (10:13→21:02)
[2017-03-09] MEDS ORDERED: Lidocaine 1% MPF 10mg/ml 5ml INJ ONE (11:00)
[2017-03-09] MEDS ORDERED: Lidocaine 1% Plain 30 ml INJ ONE (13:47)
[2017-03-09] MEDS ORDERED: Heparin 2000 units/Ns 1000ml 1,000 ML ONE (13:47)
[2017-03-09] MEDS ORDERED: guaiFENesin 100mg/5ml Liq ud ORAL PRN (21:00)
[2017-03-09] MEDS ORDERED: Morphine Sulfate 2mg/ml Inj IM PRN (21:00)
--- NOTE | 2017-03-10 01:00 | Consultation ---
DATE OF CONSULTATION: 03/09/2017 INFECTIOUS DISEASE CONSULTATION: This consult is for coverage of Dr. Bob. PRIMARY ATTENDING PHYSICIAN: John Red M.D. REASON FOR CONSULT: UTI . HISTORY OF PRESENT ILLNESS: The patient is a 77-year-old female admitted on 03/05/2017 with syncopal episode, had diarrhea, with the impression of dehydration associated with sepsis and UTI, started on antibiotics . PAST MEDICAL HISTORY: Significant for diabetes mellitus type 2. The patient is a status post kidney transplant, right below-knee amputation, status post pacemaker, had sacral and left ischial tuberosity pressure ulcer at the time of admission, and anemia. MEDICATIONS: Amlodipine, magnesium oxide, morphine, metoclopramide, Zosyn, vitamin C, , Colace, ferrous sulfate, fludrocortisone, Protonix, Spiriva, rivaroxaban, hydromorphone, , MS Contin, Zofran, clonidine, and . ALLERGIES: No known drug allergy. SOCIAL HISTORY: Lives at home. No history of alcohol, drugs, or history of smoking. She has two grown up sons . REVIEW OF SYSTEMS: The patient had no fever and no chills. She has abdominal pain. No coughing. No diarrhea present. No problem with passing event. PHYSICAL EXAMINATION: VITAL SIGNS: Temperature 97.7 degrees, pulse 80, and blood pressure 153/60. GENERAL APPEARANCE: No acute distress. HEAD AND NECK: The patient has metallic taste in the mouth. No teeth. No other oral lesion. HEART: Regular. She has pacemaker. LUNGS: Clear. ABDOMEN: Soft. Mildly tender in the upper quadrant. EXTREMITIES: She has right BKA. She has PICC line that was placed in the hospital . LABORATORY AND DIAGNOSTIC DATA: WBC 5.5, hemoglobin 10.7, hematocrit 31.1, and platelets 157,000. Sodium 138, potassium 4.3, chloride 99, bicarbonate 24, BUN 4, creatinine 0.7, and glucose 132. Bilirubin is 1.3. Stool occult blood was negative. UA showed WBC too numerous to count. Urine culture grew ESBL E.coli and Klebsiella pneumoniae. Wound culture in the past had shown again E. coli and MRSA. MRSA was positive. C. difficile was negative. IMPRESSION: 1. Sepsis. 2. Complicated urinary tract infection. 3. Methicillin-resistant Staphylococcus aureus colonization. 4. Sacral and left ischial stage III pressure ulcer. 5. Status post kidney transplant. 6. Status post right below-knee amputation. RECOMMENDATION: We will continue with Vic. Keep the patient in contact isolation for MRSA. At the end of my examination, I thank Dr. John Red, for involving me in the care of this patient. Lucian Maguire M.D. DR: Natalio JOB#: [id number] CC:
[2017-03-10] MEDS ORDERED: Metoclopramide 10mg/2ml Inj IVP PRN (02:15)
[2017-03-10 04:00] VITALS: BP 126/92
[2017-03-10] MEDS: Piperacillin/Tazobactam 3.375 GM in D5W 110 ML IVPB SCH (05:18)
[2017-03-10] MEDS ORDERED: INVANZ1 GM IM (07:56)
[2017-03-10 08:12] VITALS: BP 165/81
[2017-03-10] MEDS ORDERED: Ascorbic Acid 500mg tab ORAL SCH (09:00)
[2017-03-10] MEDS ORDERED: Dyna-Hex 2% Top Sol 8oz TOPIC SCH (09:00)
[2017-03-10] MEDS ORDERED: cycloSPORINE 100mg cap ORAL SCH (09:00)
[2017-03-10] MEDS: MS Contin 15mg tab ORAL SCH ×2 (09:00→09:06)
[2017-03-10] MEDS ORDERED: azaTHIOprine 50 MG TAB ORAL SCH (09:00)
[2017-03-10] MEDS ORDERED: Docusate 100mg cap ORAL SCH (09:00)
[2017-03-10] MEDS ORDERED: Xarelto 15mg tab ORAL SCH (09:00)
[2017-03-10] MEDS: Magnesium Oxide 400mg tab ORAL SCH ×2 (09:07→12:10)
[2017-03-10] MEDS ORDERED: LORazepam 1mg tab ORAL ONE (10:00)
--- NOTE | 2017-03-10 11:33 | Infectious Diseases Prog Note ---
"Assessment/Plan Assessment/Plan antibiotics : zosyn A 1. e.coli | klebsiella UTI, patient refusing iv antibiotics, PICC line 2. DM 3. s/p renal transplant 4. MRSA nasal colonization P 1. d/c zosyn 2. start levoquin, macrobid and continue 2 more days 3. will follow up cultures Subjective ROS Limited/Unobtainable: Yes Allergies: Coded Allergies: No Known Allergies (Verified , 05/29/09) Objective Vital Signs Last 24 Hour Vital Signs Date Time Temp Pulse Resp B/P Pulse Ox O2 Delivery O2 Flow Rate FiO2 03/10/17 10:05 97.8 03/10/17 09:06 74 165/81 03/10/17 08:12 97.8 74 20 165/81 98 Room Air 03/10/17 07:27 97.3 03/10/17 04:00 97.3 74 18 126/92 100 Room Air 03/09/17 23:39 97.4 79 18 182/86 98 Room Air 03/09/17 20:05 97.2 83 22 141/85 99 Room Air 03/09/17 16:00 97.8 84 18 146/62 98 Room Air 03/09/17 14:40 90 20 171/69 99 Room Air 03/09/17 14:35 80 16 164/77 99 Room Air 03/09/17 14:30 85 22 165/73 100 Room Air 03/09/17 14:25 83 19 170/69 100 Room Air 03/09/17 14:05 80 20 03/09/17 12:00 97.7 80 18 153/60 99 Room Air Height (Feet): 5 Height (Inches): 6.00 Weight (Pounds): 134 General Appearance: other - refused exam Current Medications Medications (Trade) Dose Ordered Sig/Toya Route PRN Reason Start Time Stop Time Status Last Admin Dose Admin Amlodipine Besylate (Norvasc) 5 mg Q12HR ORAL 03/09/17 21:00 04/08/17 20:59 03/10/17 09:06 Ascorbic Acid (Vitamin C) 500 mg DAILY ORAL 03/10/17 09:00 04/09/17 08:59 03/10/17 09:07 Azathioprine (Imuran) 75 mg DAILY ORAL 03/10/17 09:00 04/09/17 08:59 03/10/17 09:08 Chlorhexidine Gluconate (Carissa-Hex 2%) 1 applic DAILY TOPIC 03/10/17 09:00 04/09/17 08:59 Clonidine HCl (Catapres) 0.1 mg Q6H PRN ORAL For High Blood Pressure 03/09/17 21:00 04/08/17 20:59 Cyclosporine (SandIMMUNE) 100 mg Q12HR ORAL 03/10/17 09:00 04/09/17 08:59 03/10/17 09:00 Docusate Sodium (Colace) 100 mg TWICE A DAY ORAL 03/10/17 09:00 04/09/17 08:59 03/10/17 09:06 Ferrous Sulfate (Feosol) 325 mg TWICE A DAY ORAL 03/10/17 09:00 04/09/17 08:59 03/10/17 09:05 Fludrocortisone Acetate (Florinef) 0.1 mg DAILY ORAL 03/10/17 09:00 04/09/17 08:59 03/10/17 09:06 Guaifenesin (Robitussin) 200 mg Q6H PRN ORAL For Cough 03/09/17 21:00 04/08/17 20:59 Hydromorphone HCl (Dilaudid) 3 mg Q4H PRN IVP Severe Pain (Pain Scale 7-10) 03/09/17 21:00 03/16/17 20:59 Magnesium Oxide (Mag-Ox 400mg) 400 mg THREE TIMES A DAY ORAL 03/10/17 09:00 04/09/17 08:59 03/10/17 09:07 Metoclopramide HCl (Reglan) 10 mg Q6H PRN IVP Nausea & Vomiting 03/10/17 02:15 04/09/17 02:14 Morphine Sulfate (MS Contin) 15 mg EVERY 12 HOURS ORAL 03/09/17 21:00 03/16/17 20:59 03/10/17 09:06 Morphine Sulfate (Morphine Sulfate) 2 mg Q4H PRN IM Moderate Pain (Pain Scale 4-6) 03/09/17 21:00 03/16/17 20:59 03/10/17 06:57 Ondansetron HCl (Zofran) 4 mg Q6H PRN IVP Nausea & Vomiting 03/09/17 21:00 04/08/17 20:59 Pantoprazole (Protonix) 40 mg DAILY ORAL 03/10/17 09:00 04/09/17 08:59 03/10/17 09:05 Piperacillin Sod/ Tazobactam Sod/ Dextrose (Zosyn/D5W) 110 ml @ 27.5 mls/hr EVERY 8 HOURS IVPB 03/09/17 22:00 03/16/17 21:59 Risperidone (RisperDAL) 2 mg BEDTIME ORAL 03/10/17 21:00 04/09/17 20:59 Rivaroxaban (Xarelto) 15 mg DAILY ORAL 03/10/17 09:00 04/09/17 08:59 03/10/17 09:07 Sodium Chloride 1,000 ml @ 100 mls/hr Q10H IV 03/09/17 21:00 04/08/17 20:59 JARRED RUEDA Mar 10, 2017 11:33"
[2017-03-10 11:42] VITALS: BP 129/74
[2017-03-10] MEDS ORDERED: Levofloxacin 500mg tab ORAL SCH (11:45)
[2017-03-10] MEDS ORDERED: NITROFURANTOIN100 MG PO (12:31)
[2017-03-10] MEDS ORDERED: LEVAQUIN500 MG ORAL (12:32)
--- NOTE | 2017-03-10 20:30 | Consultation ---
DATE OF CONSULTATION: HISTORY OF PRESENT ILLNESS: The patient is a 77-year-old female with multiple medical problems including BKA, hypertension, DVT, and anxiety disorder, who has been admitted to the hospital for diarrhea, dehydration, and SVT. Today, she was going to be discharged and she started presenting with disorganized speech and behavior, yelling, and refusing to take medication. She was uncooperative. Psychiatry was consulted to intervene and medicate the patient. During the evaluation, the patient was uncooperative and making nonsensical statements. Initially refused to take her Ativan, then she agreed to take her Ativan. The patient was a poor historian and would not cooperate and answer the questions appropriately. Apparently, the patient lives at home and cares for herself. The patient has had several fainting spells. PAST PSYCHIATRIC HISTORY: She is not cooperative with the examination. Per records, there is no history of psychiatric illness. PAST MEDICAL HISTORY: Include colitis, gangrene, pyelonephritis, pneumonia, urinary tract infection, congestive heart failure, gastrointestinal bleeding, and history of delirium. ALLERGIES: There is no known drug allergies. SUBSTANCE ABUSE HISTORY: No history of illicit drug use or alcohol. MENTAL STATUS EXAMINATION: The patient is alert and oriented times self and place. Mood is agitated. Affect is constricted. Congruent mood. Thought process is disorganized. Thought content, positive for delusions. No suicidal or homicidal ideations. Insight and judgment is impaired. ASSESSMENT: Luther I Psychotic disorder, not otherwise specified, rule out schizophrenia. Luther II Deferred. Luther III Dehydration. Luther IV Low. Luther V Global assessment of functioning is 20. PLAN: 1. We will start the patient on risperidone 2 mg at bedtime. 2. The patient lacks capacity to be discharged on own. I recommend SNF placement. 3. The patient may not leave against medical advice. Syeda Price M.D. DR: LISHA JOB#: [id number] CC:
--- NOTE | 2017-03-11 01:01 | Discharge Summary ---
DATE OF ADMISSION: 03/05/2017 DATE OF DISCHARGE: 03/10/2017 ADMISSION DIAGNOSES: 1. Sepsis. 2. Urinary tract infection. 3. Diarrhea. 4. Rule out gastrointestinal bleed. 5. History of kidney transplant. 6. Hypertension. 7. History of deep venous thrombosis. DISCHARGE DIAGNOSES: 1. Sepsis. 2. Urinary tract infection. 3. Diarrhea. 4. Rule out gastrointestinal bleed. 5. History kidney transplant. 6. Hypertension. 7. History of deep venous thrombosis. HOSPITAL COURSE: The patient is a pleasant female admitted with complaints of failure to thrive, generalized weakness, diarrhea, and dehydration. She was diagnosed with acute urinary tract infection with possible early sepsis. She was treated with intravenous antibiotics. Culture grew out multi-drug resistant bacteria. She was seen by ID. It was recommended that the patient continue for an additional seven days of antibiotic therapy at the longterm facility. Her stool occult blood was negative. Her H and H remained stable. DISCHARGE MEDICATIONS: Please see discharge medication list for discharge medications. DIET: Regular diet. ACTIVITY: Ad-marsha. FOLLOWUP: The patient to follow up with longterm facility in one to two days. John Red M.D. DR: TI JOB#: [id number] CC:
--- NOTE | 2017-03-11 02:45 | Progress Note ---
DATE: 03/09/2017 CARDIOLOGY PROGRESS NOTE: Late entry for 03/09/2017 SUBJECTIVE: Diarrhea is better than pain persists. She has no shortness of breath or chest pain. Monitored rhythm sinus. OBJECTIVE: VITAL SIGNS: Blood pressure 151/78, heart rate 76, respiratory rate 19, oxygen saturation 98%, and the patient is afebrile. NECK: Supple. LUNGS: Clear. CARDIAC: Regular rhythm and rate. Normal S1, S2 with a fourth heart sound. ABDOMEN: Soft. Renal transplant site is on the right lower quadrant. EXTREMITIES: Right BKA stump dry. There is no edema. LABORATORY DATA: Sodium 138, potassium 4.3, bicarbonate 24, BUN 4, and creatinine 0.7. Magnesium 1.3. IMPRESSION: 1. Urinary tract infection. 2. Sepsis. 3. Metabolic and toxic encephalopathy. 4. Paroxysmal sinus tachycardia. 5. Paroxysmal supraventricular tachycardia. 6. Hypomagnesemia. 7. Type 2 diabetes mellitus. 8. History of renal transplant. PLAN: Off IV fluids. Discontinue telemetry. IV magnesium. Long-term oral magnesium. Complete antibiotics. Pain control. No current plan to advance antihypertensive unless trend of blood pressure detected. Matthew Tinajero M.D. DR: Abiodun JOB#: [id number] CC:
--- NOTE | 2017-03-11 07:45 | Progress Note ---
DATE: 03/10/2017 CARDIOLOGY PROGRESS NOTE SUBJECTIVE: The patient has no new complaints. Pain is controlled. Diarrhea resolved. No nausea or vomiting. Appetite fair. OBJECTIVE: VITAL SIGNS: Blood pressure 165/81, pulse 74, and respiratory rate 20. NECK: Supple. LUNGS: Clear. CARDIAC: Regular. Normal S1 and S2 with a fourth heart sound. ABDOMEN: Soft. Transplant kidney site is without tenderness. EXTREMITIES: Reveal right BKA stump. IMPRESSION: 1. Rise in blood pressure trend. We will resume amlodipine and titrate. 2. Urinary tract infection with sepsis recovered. 3. Phantom limb pain, chronic and better controlled. 4. Type 2 diabetes mellitus, diet controlled. 5. Renal transplant with stable renal function. 6. Hypovolemia and dehydration corrected with intravenous fluids. PLAN: Outpatient followup. Medications reviewed. Matthew Tinajero M.D. DR: Sulaiman JOB#: [id number] CC:
== END 2017-03-10 15:01 | DRG 871 ==
LOC: 2E 15:05 → 4E 03-09 19:51
PROC: 02HV33Z Insertion of Infusion Device into Superior Vena Cava, Percutaneous Approach (ICD-10-PCS; principal; 2017-03-06)
DX: A41.9 Sepsis, unspecified organism (principal); L89.153 Pressure ulcer of sacral region, stage 3; G92 Toxic encephalopathy; I13.0 Hypertensive heart and chronic kidney disease with heart failure and stage 1 through stage 4 chronic kidney disease, or unspecified chronic kidney disease; E11.22 Type 2 diabetes mellitus with diabetic chronic kidney disease; I47.1 Supraventricular tachycardia; L89.323 Pressure ulcer of left buttock, stage 3; I50.32 Chronic diastolic (congestive) heart failure; K92.2 Gastrointestinal hemorrhage, unspecified; Z94.0 Kidney transplant status; N39.0 Urinary tract infection, site not specified; E11.40 Type 2 diabetes mellitus with diabetic neuropathy, unspecified; E86.0 Dehydration; I73.9 Peripheral vascular disease, unspecified; Z95.0 Presence of cardiac pacemaker; Z89.511 Acquired absence of right leg below knee; R19.7 Diarrhea, unspecified; Z86.718 Personal history of other venous thrombosis and embolism; N18.9 Chronic kidney disease, unspecified; Z22.322 Carrier or suspected carrier of Methicillin resistant Staphylococcus aureus; F29 Unspecified psychosis not due to a substance or known physiological condition; I95.1 Orthostatic hypotension; E86.1 Hypovolemia; Z79.01 Long term (current) use of anticoagulants; G54.6 Phantom limb syndrome with pain; E83.42 Hypomagnesemia; B96.20 Unspecified Escherichia coli [E. coli] as the cause of diseases classified elsewhere; B96.1 Klebsiella pneumoniae [K. pneumoniae] as the cause of diseases classified elsewhere
CPT/HCPCS: 36415; 36569; 74000; 76937; 80053; 81003; 82270; 83735; 85025; 87070; 87081; 87086; 87181; 87205; 87324; 93005; J2405; J2765; J8499

== ENCOUNTER 2017-04-17 13:55 | Inpatient (IN) | payer MEDICARE, MEDICAID ==
[~2017-04-17] VITALS: Ht 157.5 cm; Wt 59.0 kg
[~2017-04-17 13:55] MED LIST changes: +INVANZ1 GM IM; +NITROFURANTOIN100 MG PO
--- NOTE | 2017-04-17 14:46 | Emergency Room Report ---
History of Present Illness General Chief Complaint: General Complaint Source: Patient, Medical Record Present Illness HPI 77YOF BIBEMS from home with multiple episodes of watery diarrhea, 20x a day, last few days. Mild assoc abd pain. Denies nausea/vomiting, fever/chills Currently on Abx and per EMR was on broad spectrum Abx for sepsis last month as well Denies chest pain, SOB. Also c/o severe right shoulder/arm pain s/p fall 1 month prior Went to "[facility]" and "they did nothing" and did not do an xray. Allergies: Coded Allergies: No Known Allergies (Verified , 05/29/09) Patient History Past Medical History: DM, HTN Past Surgical History: other - Right BKA Pertinent Family History: none Now: No Immunizations: UTD Reviewed Nursing Documentation: PMH: Agreed, PSxH: Agreed Nursing Documentation-PMH Hx Cardiac Problems: Yes Hx Hypertension: Yes Hx Pacemaker: Yes Hx Asthma: Yes Hx Diabetes: Yes - Type 2 DM Hx Cancer: No Hx Gastrointestinal Problems: No Hx Dialysis: No Hx Neurological Problems: Yes Hx Seizures: Yes - LAST EPISODE 2011 Hx Memory Loss: Yes Hx Dizziness: Yes Review of Systems All Other Systems: negative except mentioned in HPI Physical Exam Vital Signs Date Time Temp Pulse Resp B/P Pulse Ox O2 Delivery O2 Flow Rate FiO2 04/17/17 14:20 98.8 74 20 174/78 98 Room Air Sp02 EP Interpretation: reviewed, abnormal General Appearance: normal inspection, well appearing, no apparent distress, alert, GCS 15, non-toxic Head: normocephalic, atraumatic Eyes: bilateral eye EOMI, bilateral eye PERRL ENT: normal ENT inspection, hearing grossly normal, normal voice Neck: normal inspection, full range of motion, supple, no bony tend Respiratory: normal inspection, lungs clear, normal breath sounds, no respiratory distress, no retraction, no wheezing Musculoskeletal: normal inspection, back normal, normal range of motion, Domingo' s Sign negative, other - Right BKA. Hyperasthesia to even minimal palpation from right SCM/neck all the way down to hand. ROM intact at right shoulder, elbow, wrist. Neurologic: normal inspection, alert, oriented x3, responsive, human capital analyst III-XII nml as tested, motor strength/tone normal, speech normal Psychiatric: normal inspection, judgement/insight normal, mood/affect normal Skin: normal inspection, normal color, no rash Medical Decision Making Medicare Attestation I Emily Jewell MD hereby attest that the medical record entry for date of service, 09/08/16 accurately reflects signatures/notations that I made in my capacity as MD when I treated/diagnosed the above listed Medicare beneficiary. I attest that this information is true, accurate and complete to the best of my knowledge. I understand that any falsification, omission, or concealment of material fact may subject me to administrative, civil, or criminal liability. This patient warrants hospital admission for extreme of age and has a condition that cannot be treated as outpatient. Diagnostic Impression: Primary Impression: Diarrhea Qualified Codes: A09 - Infectious gastroenteritis and colitis, unspecified Additional Impressions: Right shoulder pain Qualified Codes: M25.511 - Pain in right shoulder Pelvic fluid collection ER Course Diarrhea - VSS. Afebrile. - Mild generalized ttp, non-focal - Smells like C. diff - assay: pending - Labs: No leuks. H&H stable. Metabolic panel normal - CT with fluid collection right lower abdomen. Seroma vs abscess. However no leuks, afebrile. Unlikely abscess given well appearance. Dr Red informed. GenSurg consult placed from ED but doubt that it is urgent. SubQ edema/ infiltatation around pelvic areas as well. Right shoulder pain - Obvious arthritis, osteopenia - No acute or subacute fx on ED review of imaging Endorsed to Dr Red for admission at 6pm med/surg. EKG Diagnostic Results Rate: normal Rhythm: NSR ST Segments: other Rhythm Strip Diag. Results EP Interpretation: yes Rate: 72 Rhythm: NSR, no PVC's, no ectopy Chest X-Ray Diagnostic Results Chest X-Ray Diagnostic Results : Chest X-Ray Ordered: Yes # of Views/Limited/Complete: 1 View Indication: Other - Admit EP Interpretation: Yes Interpretation: no consolidation, no effusion, no pneumothorax, no acute cardiopulmonary disease Impression: No acute disease Interpreting ER Provider: Electronically signed by Dr Jewell Last Vital Signs Date Time Temp Pulse Resp B/P Pulse Ox O2 Delivery O2 Flow Rate FiO2 04/17/17 14:20 98.8 74 20 174/78 98 Room Air Status: improved Disposition: ADMITTED INPATIENT Condition: Serious EMILY JEWELL M.D. Apr 17, 2017 14:46
[2017-04-17] MEDS ORDERED: Oxycodone/Acetaminophen 5-325 ORAL ONE (15:00)
[2017-04-17 15:57] LABS: BASOPHILS % (AUTO) 1.5 % (0.0-2.0); EOSINOPHILS % (AUTO) 0.6 % (0.0-3.0); LYMPHOCYTES % (AUTO) 27.5 % (20.0-45.0); MEAN CORPUSCULAR HEMOGLOBIN 34.9 PG (27.0-31.0); MEAN CORPUSCULAR HGB CONC 33.9 G/DL (32.0-36.0); MEAN CORPUSCULAR VOLUME 103 FL (80-99); MEAN PLATELET VOLUME 9.9 FL (6.5-10.1); MONOCYTES % (AUTO) 7.1 % (1.0-10.0); NEUTROPHILS % (AUTO) 63.2 % (45.0-75.0); PLATELET COUNT 176 K/UL (150-450); RED BLOOD COUNT 3.29 M/UL (4.20-5.40); RED CELL DISTRIBUTION WIDTH 14.8 % (11.6-14.8); WHITE BLOOD COUNT 4.4 K/UL (4.8-10.8)
[2017-04-17] MEDS ORDERED: Dicyclomine HCl 10mg/5ml oral soln ORAL ONE (16:00)
[2017-04-17 16:11] LABS: TROPONIN I < 0.30 ng/mL (<=0.30)
[2017-04-17 16:14] LABS: ALANINE AMINOTRANSFERASE 14 U/L (3-33); ANION GAP 14 (5-15); ASPARTATE AMINO TRANSFERASE 35 U/L (5-40); CALCIUM 9.4 mg/dL (8.6-10.2); CARBON DIOXIDE 19 mEQ/L (20-30); CHLORIDE 107 mEQ/L (98-107); CREATININE 0.9 mg/dL (0.5-0.9); HEMOLYSIS 7; POTASSIUM 3.4 mEQ/L (3.4-4.9); SODIUM 140 mEQ/L (135-145)
[2017-04-17 16:30] VITALS: BP 192/73
[2017-04-17 17:30] VITALS: BP 182/68
[2017-04-17] MEDS ORDERED: fentaNYL 100 mcg/2 mL IV ONE (18:30)
[2017-04-17 19:30] VITALS: BP 162/81
[2017-04-17 19:35] LABS: APPEARANCE,URINE CLOUDY; KETONES,URINE NEGATIVE (NEGATIVE); LEUKOCYTE ESTERASE ,URINE 3+ (NEGATIVE); NITRITE,URINE NEGATIVE (NEGATIVE); PH,URINE 5 (4.5-8.0); PROTEIN,URINE 3+ (NEGATIVE); UROBILINOGEN,URINE NORMAL MG/DL (0.0-1.0)
[2017-04-17 19:47] LABS: RBC,URINE 0-2 /HPF (0 - 2); WBC,URINE TNTC /HPF (0 - 2)
[2017-04-17 19:48] LABS: BACTERIA,URINE MANY /HPF; SQUAMOUS EPITHELIAL CELL,UR OCCASIONAL /LPF (NONE/OCC)
[2017-04-17] MEDS ORDERED: Morphine Sulfate 4mg/ml Inj IVP PRN (20:15)
[2017-04-17 21:15] VITALS: BP 146/33
[2017-04-17] MEDS ORDERED: Artificial Tears 1.4% Op Soln BOTH EYES PRN (23:15)
[2017-04-17] MEDS ORDERED: guaiFENesin 100mg/5ml Liq ud ORAL PRN (23:15)
[2017-04-17] MEDS ORDERED: Norco 10mg/325mg tab ORAL PRN (23:15)
--- NOTE | 2017-04-17 23:57 | Diagnostic Imaging Report ---
Indication: Shortness of breath Technique: One view of the chest Comparison: 10/20/2015 Findings: There is a left chest unifocal pacemaker with an atrial lead only. Previously demonstrated bilateral pleural effusions and interstitial congestion are no longer evident. Lungs and pleural spaces are currently clear. Heart size is normal. Surgical clips are seen in both arms Impression: Negative
--- NOTE | 2017-04-17 23:57 | Diagnostic Imaging Report ---
Indication: Pain Technique: 3 views of the right shoulder Comparison: none Findings: Bones are osteoporotic. There are surgical clips in the right arm. No acute fractures. No dislocations. There are mild degenerative proliferative changes of the right shoulder. Positioning is suboptimal. There questionably calcific tendinosis calcifications. A left chest unifocal atrial pacemaker lead is incidentally noted. Is also surgical hardware in the mandible Impression:Degenerative changes. No acute bony trauma
[2017-04-18] VITALS: BP 181/83
[2017-04-18] MEDS: HydrALAZINE 25mg tab ORAL SCH ×4 (00:20→21:50)
[2017-04-18] MEDS: HYDROmorphone 1mg/ml Carpuject IVP PRN ×4 (00:21→22:05)
[2017-04-18] MEDS ORDERED: Vancomycin 1gm inj IVPB ONE (01:16)
[2017-04-18] MEDS ORDERED: Cefepime 1gm vial ONE (01:16)
[2017-04-18] MEDS: Cefepime HCl 1 GM in D5W 55 ML IVPB SCH (01:25)
[2017-04-18] MEDS ORDERED: Vancomycin 1gm/D5W 275ml IVPB ONE ×2 (02:00)
[2017-04-18 04:00] VITALS: BP 148/78
[2017-04-18] MEDS: metroNIDAZOLE 500mg tab ORAL SCH ×3 (06:13→21:50)
[2017-04-18 08:19] VITALS: BP 144/86
[2017-04-18] MEDS: azaTHIOprine 50 MG TAB ORAL SCH (08:46)
[2017-04-18] MEDS: Furosemide 40mg tab ORAL SCH (08:46)
[2017-04-18] MEDS: Lyrica 50mg cap ORAL SCH ×2 (08:47→17:21)
[2017-04-18] MEDS: cycloSPORINE 100mg cap ORAL SCH ×2 (08:48→17:21)
[2017-04-18] MEDS: Ascorbic Acid 500mg tab ORAL SCH (08:48)
--- NOTE | 2017-04-18 09:30 | History and Physical Report ---
DATE OF ADMISSION: 04/17/2017 CHIEF COMPLAINT: Abdominal pain and diarrhea. HISTORY OF PRESENT ILLNESS: The patient is a pleasant 77-year-old female. She has a history of a right BKA, kidney transplant, hypertension, and diabetes. She has a history of DVT, currently on Xarelto. She states she was recently admitted to outside hospital. She is unclear of the exact events. She was home for several days and then developed severe diarrhea as well as abdominal pain. Reports of a possible fall. On evaluation to the emergency room, the patient was afebrile. She had a normal white count. CT scan of the abdomen showed a possible fluid collection and possible abscess. She also had UA, showed too numerous count WBCs. The patient was started on broad-spectrum IV antibiotic therapy. She is now admitted for further evaluation and care. PAST MEDICAL HISTORY: As above. PAST SURGICAL HISTORY: Includes kidney transplant and BKA. MEDICATIONS: Current medications are reconciled and reviewed. ALLERGIES: None. FAMILY HISTORY: None. SOCIAL HISTORY: Negative for tobacco, ethanol, or drugs. REVIEW OF SYSTEMS: General: No fever or chills. HEENT: No headaches or visual changes. Cardiopulmonary: No chest pain or shortness of breath. Gastrointestinal: Positive abdominal pain. Positive diarrhea. Genitourinary: Positive urgency or frequency. Musculoskeletal: Positive history of phantom limb pain. Neurologic: No evidence of seizures. PHYSICAL EXAMINATION: VITAL SIGNS: Temperature 98 degrees, blood pressure 120/76, pulse 80, and respirations 20. GENERAL: The patient is well-developed female, in no apparent distress. HEART: Regular rate and rhythm. LUNGS: Lungs are clear. ABDOMEN: Soft, nontender, and nondistended. EXTREMITIES: Without clubbing, cyanosis, or edema. LABORATORY AND DIAGNOSTIC DATA: CT scan showed a possible fluid collection in the lower abdomen. Her white count was 4. ASSESSMENT: This is a pleasant female with complaints of diarrhea and abdominal pain, urinary tract infection possible early sepsis, cannot rule out any abdominal abscess. PLAN: ID and surgical consultations. Check the stool for C. difficile. Empiric antibiotic therapy to cover for abscess as well as C. difficile. Follow up pending cultures. Continue transplant regimen. Pain medications as needed. Gentle hydration. . John Red M.D. DR: LORRAINE JOB#: [id number] CC:
--- NOTE | 2017-04-18 10:40 | Diagnostic Imaging Report ---
Indication: Abdominal pain Technique: CT scan of the abdomen and pelvis utilizing automated exposure control without intravenous or oral contrast. Axial, sagittal and coronal images were obtained. CT dose: Total DLP 593 mGycm; CTDI vol 11.1 mGy Comparison: 01/20/11 Findings: Evaluation of the solid organs is limited without intravenous contrast material. There is atelectasis in the lung bases. A thin-walled cyst is seen in the left lower lobe. There is a calcified granuloma in the left lower lobe. There is wall thickening versus underdistention of the distal esophagus. The heart is enlarged. Atherosclerotic changes are present. The liver, adrenal glands and pancreas are grossly unremarkable. Cholecystectomy is noted. Spleen is grossly unremarkable. Bilateral kidneys are atrophic with calcifications and small hypodense probable cysts. There is a right lower quadrant transplant kidney. The bladder appears thickened. Air is noted in the bladder. The uterus is absent. Colonic diverticula are present without diverticulitis. There is no appendicitis. Fat-containing periumbilical hernia is seen. There is a oval 3 cm fluid collection of the right anterior/pelvic wall probably an old hematoma or seroma which was present on 01/20/11. Atherosclerotic changes are seen. Abdominal aorta is normal in caliber. Vascular patency cannot be assessed. Bilateral femoral postsurgical changes are present. Degenerative changes of the spine are seen. There is internal fixation of the left femoral neck. Impression: Bladder wall thickening with air in the bladder. Findings could represent recent instrumentation or infection. Clinical correlation recommended. Right lower quadrant transplant kidney. Atrophic bilateral [place] kidneys with calcifications and small hypodensities probably representing cysts. Cholecystectomy. Hysterectomy. Atherosclerotic changes. Small fat-containing femoral hernia. Small oval complex fluid collection of the right lower anterior abdominal wall which was seen previously 01/20/11 probably an old hematoma or postoperative fluid collection. Clinical correlation recommended. Other findings as above. The CT scanner at [facility] is accredited by the [employer] and the scans are performed using protocols designed to limit radiation exposure to as low as reasonably achievable to attain images of sufficient resolution adequate for diagnostic evaluation.
--- NOTE | 2017-04-18 10:56 | General Progress Note ---
Progress Note Progress Note chart reviewed, pt examined,consult dictated. Impression: UTI, diarrhea, rule out C diff colitis, rt lower quadrant abdominal wall cystic mass, possibly old seroma from transplant. There is no need for surgical intervention at this point. Geoffrey Monsalve MD Apr 18, 2017 10:56
[2017-04-18 11:36] VITALS: BP 150/85
[2017-04-18] MEDS ORDERED: Tubing IV Secondary IV ONE (15:34)
[2017-04-18 15:46] VITALS: BP 144/72
[2017-04-18] MEDS: Xarelto 15mg tab ORAL SCH (17:19)
--- NOTE | 2017-04-18 18:00 | Consultation ---
DATE OF CONSULTATION: 04/18/2017 SURGICAL CONSULTATION REASON FOR CONSULTATION: Abdominal pain and right lower quadrant subcutaneous mass. HISTORY OF PRESENT ILLNESS: This pleasant 77-year-old female was admitted to the hospital because of problems with abdominal pain and diarrhea. She suffered diarrhea for approximately five days. The patient was recently hospitalized at another facility where she was possibly treated for a urinary tract infection. The patient has a history of diabetes mellitus for over 20 years. PREVIOUS SURGICAL HISTORY: Previous surgery includes a right below-knee amputation four years ago and right kidney transplant four years ago. Other problems include hypertension. She has a history of a deep venous thrombosis and has been on Xarelto. MEDICATIONS: Include amlodipine 5 mg daily, vitamin C 500 mg daily, 50 mg daily, clonidine 0.1 mg every 6 hours, cyclosporine 100 mg b.i.d., ferrous sulfate 325 mg twice a day, fludrocortisone acetate 0.1 mg daily, Lasix 40 mg daily, hydralazine 25 mg t.i.d., Lyrica 50 mg b.i.d., and Xarelto 50 mg per day. ALLERGIES: None known. SOCIAL HISTORY: Tobacco, the patient quit smoking one year ago. She would smoke 1 to 2 cigarettes a day. Alcohol, none. PAST FAMILY HISTORY: Noncontributory. REVIEW OF SYSTEMS: Include no problems with angina or shortness of breath. She describes problems with phantom leg pain from the right BK stump. PHYSICAL EXAMINATION: VITAL SIGNS: Temperature 98 degrees, blood pressure 120/76, pulse 80, and respirations 20. GENERAL: Reveals a well-developed, black female, in no acute distress. HEENT: Normocephalic. Pupils are equal and reactive to light. There was no scleral icterus. NECK: Supple without adenopathy. LUNGS: Clear. HEART: Showed a regular rhythm. ABDOMEN: Flat. There is a healed right lower quadrant incision from her transplant. There is a mass sensation noted. There was no evidence of hernia. DIAGNOSTIC DATA: A CT scan of the abdomen was reviewed with the radiologist. There was no evidence of intestinal obstruction. There was some gas noted in the bladder. There was no stranding around the bladder. The transplanted kidney is normal. There is a 3 cm mass above the level of the fascia at the level of the transplant. The mass does not appear related to the kidney. LABORATORY STUDIES: Urinalysis showed evidence of urinary tract infection with 3+ leukocyte esterase, many bacteria, and white blood cells too numerous to count. CBC showed a white blood count of 4400, hemoglobin 11.5 g percent, hematocrit 33.9%, and platelet count 176,000. Serum electrolytes with a sodium of 140, potassium 3.4, chloride 107, bicarbonate 19, BUN 21, creatinine 0.9, and glucose 132. IMPRESSION: Urinary tract infection, diarrhea, rule out Clostridium difficile colitis. The cystic mass in the right lower abdomen appears to be a chronic problem. Possibly a seroma from her kidney transplant. There is no need for surgical intervention at this time. Geoffrey Monsalve M.D. DR: HUMZA JOB#: [id number] CC:
[2017-04-18 20:00] VITALS: BP 138/74
[2017-04-19] VITALS: BP 148/80
[2017-04-19] MEDS: Cefepime HCl 1 GM in D5W 55 ML IVPB SCH (00:08)
[2017-04-19] MEDS: Vancomycin 750mg/D5W 275ml IVPB SCH ×2 (02:02)
[2017-04-19 04:00] VITALS: BP 158/90
[2017-04-19] MEDS: HYDROmorphone 1mg/ml Carpuject IVP PRN ×3 (04:45→18:20)
[2017-04-19] MEDS: metroNIDAZOLE 500mg tab ORAL SCH ×3 (05:30→22:01)
[2017-04-19] MEDS: HydrALAZINE 25mg tab ORAL SCH ×3 (05:31→22:01)
[2017-04-19 07:51] VITALS: BP 133/71
[2017-04-19] MEDS: Furosemide 40mg tab ORAL SCH (08:45)
[2017-04-19] MEDS: azaTHIOprine 50 MG TAB ORAL SCH (08:45)
[2017-04-19] MEDS: Lyrica 50mg cap ORAL SCH ×2 (08:45→17:11)
[2017-04-19] MEDS: cycloSPORINE 100mg cap ORAL SCH ×2 (08:46→17:11)
[2017-04-19] MEDS: Ascorbic Acid 500mg tab ORAL SCH (08:46)
[2017-04-19] MEDS ORDERED: Loperamide 2mg cap ORAL PRN (11:00)
[2017-04-19 11:32] VITALS: BP 154/81
--- NOTE | 2017-04-19 11:36 | General Progress Note ---
Progress Note Progress Note Afebrile. Pt is feeling better, diarrhea has resolved. Stool assay for C diff was negative. Abdomen still shows some tenderness. Urine culture grew E coli. There is no need for surgical intervention. Geoffrey Monsalve MD Apr 19, 2017 11:36
[2017-04-19 15:41] VITALS: BP 126/60
[2017-04-19] MEDS: Xarelto 15mg tab ORAL SCH (17:10)
--- NOTE | 2017-04-19 18:56 | General Progress Note ---
Assessment/Plan Problem List: (1) Failure to thrive in adult ICD Codes: R62.7 - Adult failure to thrive SNOMED: 920701933 (2) Abdominal abscess ICD Codes: K65.1 - Peritoneal abscess SNOMED: 13768022 (3) Colitis ICD Codes: K52.9 - Colitis SNOMED: 962750760 (4) Pyelonephritis ICD Codes: N12 - Pyelonephritis SNOMED: 55040403 (5) Sepsis ICD Codes: A41.9 - Sepsis SNOMED: 49744707 (6) UTI (urinary tract infection) ICD Codes: N39.0 - Urinary tract infection, site not specified SNOMED: 54208625 (7) Diastolic CHF with preserved left ventricular function, NYHA class 2 ICD Codes: I50.30 - Unspecified diastolic (congestive) heart failure SNOMED: 168920810, 500393145, 506165752, 650558647 (8) Diarrhea ICD Codes: R19.7 - Diarrhea SNOMED: 47923986 Qualifiers: Qualified Codes: A09 - Infectious gastroenteritis and colitis, unspecified Status: stable, progressing Assessment/Plan iv abx per id follow up cultures pain rx ivf xarelto add remeron pain rx Subjective ROS Limited/Unobtainable: No Constitutional: Reports: malaise, weakness HEENT: Reports: no symptoms Cardiovascular: Reports: no symptoms Respiratory: Reports: no symptoms Gastrointestinal/Abdominal: Reports: diarrhea, poor appetite Genitourinary: Reports: no symptoms Neurologic/Psychiatric: Reports: numbness, paresthesia, pre-existing deficit Endocrine: Reports: no symptoms Hematologic/Lymphatic: Reports: anemia Allergies: Coded Allergies: No Known Allergies (Verified , 05/29/09) All Systems: reviewed and negative except above Subjective feels "a little better." no cp/sob. +phatom limb pain. diarrhea better. called by rn for culture results. abx adjusted. poor appetite. Objective Last 24 Hour Vital Signs Date Time Temp Pulse Resp B/P Pulse Ox O2 Delivery O2 Flow Rate FiO2 04/19/17 17:10 126/60 04/19/17 15:41 98.0 79 19 126/60 99 Room Air 04/19/17 15:03 154/81 04/19/17 12:05 154/81 04/19/17 11:32 97.8 81 20 154/81 97 Room Air 04/19/17 08:45 76 133/71 04/19/17 07:51 97.5 76 19 133/71 98 Room Air 04/19/17 05:31 158/90 04/19/17 05:30 158/90 04/19/17 04:00 97.9 92 18 158/90 99 Room Air 04/19/17 00:07 148/80 04/19/17 00:00 98.1 90 18 148/80 99 Room Air 04/18/17 21:50 138/74 04/18/17 20:00 98.4 92 19 138/74 100 Room Air Intake and Output 04/18/17 04/19/17 19:00 07:00 Intake Total 950 ml 1122.416 ml Output Total 500 ml Balance 450 ml 1122.416 ml Intake Oral 800 ml 120 ml IV Total 150 ml 1002.416 ml Output Urine Total 500 ml # Voids 2 1 Height (Feet): 5 Height (Inches): 2.00 Weight (Pounds): 130 General Appearance: WD/WN, alert, thin EENT: PERRL/EOMI Neck: non-tender, normal alignment, supple Cardiovascular: normal rate Respiratory/Chest: chest wall non-tender, lungs clear, normal breath sounds, no respiratory distress Abdomen: normal bowel sounds, non tender, soft, no organomegaly, no mass Edema: no edema noted Arm (L), no edema noted Arm (R), no edema noted Leg (L), no edema noted Leg (R), no edema noted Pedal (L), no edema noted Pedal (R), no edema noted Generalized 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
[2017-04-19 20:00] VITALS: BP 129/70
--- NOTE | 2017-04-19 21:15 | Consultation ---
DATE OF CONSULTATION: 04/19/2017 CONSULTING PHYSICIAN: Kade Cochran M.D. REFERRING PHYSICIAN: John Red M.D. REASON FOR CONSULTATION: The patient is a 77-year-old, lady, well known to me with a history of a kidney transplant presents with abdominal pain. HISTORY OF PRESENT ILLNESS: The patient has had a well-functioning kidney transplant in 04/2007 and her renal function has been stable. She has had multiple other medical complications. She presents now with abdominal pain and diarrhea. She was recently in another hospital in [facility]. The patient also has had recurrent UTIs and has had some dysuria. She has urinary incontinence and has had Gonzalez catheters intermittently in the past and recurrent UTIs. She has a history of severe peripheral vascular disease with multiple vascular procedures and a right below-knee amputation and right above-knee amputation. She has had multiple surgeries and procedures for ulcerations of her lower extremities. She has chronic pain syndrome. The patient has been maintained on cyclosporine and Imuran and has been off steroids for her kidney transplant immunosuppression. She has had an episode of likely acute kidney injury from excess tacrolimus or cyclosporine in the past, but this completely resolved. ALLERGIES: None known. MEDICATIONS: She could not give an adequate list, but according to the information provided she has been on Imuran, cyclosporine, amlodipine, vitamin C, clonidine, ferrous sulfate, furosemide, Naprosyn, Apresoline, [place], Dilaudid, metronidazole, Zofran, Protonix, Lyrica, Xarelto, temazepam, vancomycin and cefepime. HABITS: She is a nondrinker and nonsmoker. No use of illicit drugs. SURGERIES: Kidney transplant, multiple dialysis, vascular access, permanent pacemaker, multiple vascular procedures for peripheral vascular disease, amputation of the right leg below the knee and subsequently above the knee and procedures for ulcerations of the lower extremities. SYSTEM REVIEW: HEAD, EYES, EARS, NOSE, AND THROAT: Vision and hearing are good. ENDOCRINE: She had glucose intolerance in the past due to steroids not requiring medications chcf. No history of thyroid disease. PULMONARY: No asthma or TB. CARDIAC: History of permanent pacemaker and hypertensive heart disease. No definite myocardial infarction. GASTROINTESTINAL: She has had diarrhea. She has had C. difficile in the past. She has had intermittent nausea and vomiting. GENITOURINARY: She has urinary incontinence and recurrent UTIs. NEUROLOGIC: No CVA or seizures. She has had metabolic encephalopathy in the past. PSYCHIATRIC: History of chronic pain and anxiety. PHYSICAL EXAMINATION: GENERAL: The patient is alert lady, lying in bed, in no acute distress. VITAL SIGNS: Temperature 97.5 degrees, pulse 86, respirations 19, blood pressure 133/71, and pulse oximetry 98. HEAD, EYES, EARS, NOSE, AND THROAT: Sclerae are nonicteric. Ocular motions intact in all directions. Oral mucosa is moist. NECK: No adenopathy or thyroid enlargement. LUNGS: Clear. HEART: Regular rhythm. I hear no murmur. ABDOMEN: Soft and nondistended. Renal transplants in the right lower quadrant. Nontender. She has very minimal generalized tenderness. No rebound. No focal tenderness. EXTREMITIES: No edema. There is muscle atrophy. She has a right above-knee amputation. NEUROLOGIC: She is alert and oriented. Cranial nerves are intact. PERTINENT LABORATORY AND DIAGNOSTIC DATA: Her urinalysis shows too numerous to count white cells, 3+ protein, and 0 to 2 red cells per high-power field. Sodium 130, potassium 3.4, chloride 107, CO2 19, BUN 21, creatinine 0.9, and glucose 132. White count is 4.4 and hemoglobin 11.5. C. difficile study was negative on this admission. Urine culture is growing gram-negative rods and the blood cultures growing coag-negative Staph. IMPRESSION: 1. Urinary tract infection in a patient with renal transplant recurrent. 2. Coagulase-negative staph bacteremia possible contaminant. 3. Renal transplant status. 4. Diarrhea multifactorial could be due to Imuran or other medications versus related to urinary infection and we should give her symptomatic care. PLAN: The patient will be watched closely. We will review all her orders for renal disease and coordinate care with you. Kade Cochran M.D. DR: ILSA JOB#: [id number] CC:
[2017-04-19] MEDS: Piperacillin/Tazobactam 3.375 GM in D5W 110 ML IVPB SCH (22:01)
[2017-04-20] VITALS: BP 128/65
[2017-04-20] MEDS: HYDROmorphone 1mg/ml Carpuject IVP PRN ×5 (00:17→18:48)
[2017-04-20] MEDS: Vancomycin 750mg/D5W 275ml IVPB SCH ×2 (02:22)
[2017-04-20 04:00] VITALS: BP 142/81
[2017-04-20] MEDS: Piperacillin/Tazobactam 3.375 GM in D5W 110 ML IVPB SCH ×3 (05:56→21:59)
[2017-04-20] MEDS: metroNIDAZOLE 500mg tab ORAL SCH ×3 (05:57→21:26)
[2017-04-20] MEDS: HydrALAZINE 25mg tab ORAL SCH ×3 (06:01→21:26)
[2017-04-20 08:00] VITALS: BP 130/68
[2017-04-20 08:10] LABS: ANION GAP 12 (5-15); CARBON DIOXIDE 23 mEQ/L (20-30); CHLORIDE 105 mEQ/L (98-107); CREATININE 0.8 mg/dL (0.5-0.9); HEMOLYSIS 7; POTASSIUM 3.4 mEQ/L (3.4-4.9); SODIUM 140 mEQ/L (135-145)
--- NOTE | 2017-04-20 09:01 | General Surgery Progress Note ---
General Surgery-Progress Note Subjective Symptoms: improved, pain absent, passing flatus Additional Comments no acute events. doing well. Objective Last 24 Hour Vital Signs Date Time Temp Pulse Resp B/P Pulse Ox O2 Delivery O2 Flow Rate FiO2 04/20/17 06:01 142/81 04/20/17 06:01 142/81 04/20/17 04:00 96.0 75 20 142/81 100 Room Air 04/20/17 00:07 128/65 04/20/17 00:00 97.7 74 20 128/65 99 Room Air 04/19/17 22:01 129/70 04/19/17 20:00 98.2 93 20 129/70 97 Room Air 04/19/17 17:10 126/60 04/19/17 15:41 98.0 79 19 126/60 99 Room Air 04/19/17 15:03 154/81 04/19/17 12:05 154/81 04/19/17 11:32 97.8 81 20 154/81 97 Room Air I&O Intake and Output 04/19/17 04/20/17 18:59 06:59 Intake Total 1620 ml 1239.916 ml Output Total 800 ml Balance 820 ml 1239.916 ml Intake Oral 720 ml 360 ml IV Total 900 ml 879.916 ml Output Urine Total 800 ml # Voids 2 Cardiovascular: RSR Respiratory: clear Abdomen: soft, non-tender, present bowel sounds Extremities: no edema, no tenderness Laboratory Tests Test 04/20/17 06:50 Sodium Level 140 mEQ/L (135-145) Potassium Level 3.4 mEQ/L (3.4-4.9) Chloride Level 105 mEQ/L (98-107) Carbon Dioxide Level 23 mEQ/L (20-30) Anion Gap 12 (5-15) Blood Urea Nitrogen 14 mg/dL (7-23) Creatinine 0.8 mg/dL (0.5-0.9) Estimat Glomerular Filtration Rate mL/min (>60) Glucose Level 135 mg/dL (74-106) H Calcium Level 9.0 mg/dL (8.6-10.2) Cyclosporine (by HPLC) Pending Assessment Additional Comments 77F likely seroma near prior kidney transplant. afebrile, HD stable, exam benign. labs okay. no surgical intervention necessary. can monitor for now will need to f/u with transplant surgeon after discharge to monitor seroma Thomas Franklin Apr 20, 2017 09:01
[2017-04-20] MEDS: Furosemide 40mg tab ORAL SCH (09:25)
[2017-04-20] MEDS: azaTHIOprine 50 MG TAB ORAL SCH (09:25)
[2017-04-20] MEDS: Lyrica 50mg cap ORAL SCH ×2 (09:26→18:24)
[2017-04-20] MEDS: Ascorbic Acid 500mg tab ORAL SCH (09:28)
[2017-04-20] MEDS: cycloSPORINE 100mg cap ORAL SCH ×2 (09:28→18:26)
[2017-04-20] MEDS ORDERED: Heparin 2000 units/Ns 1000ml IV PRN (10:15)
[2017-04-20] MEDS ORDERED: Lidocaine 1% Plain 30 ml INJ PRN (10:15)
[2017-04-20 12:00] VITALS: BP 115/69
--- NOTE | 2017-04-20 14:21 | General Progress Note ---
Assessment/Plan Problem List: (1) Failure to thrive in adult ICD Codes: R62.7 - Adult failure to thrive SNOMED: 002542697 (2) Abdominal abscess ICD Codes: K65.1 - Peritoneal abscess SNOMED: 47247751 (3) Colitis ICD Codes: K52.9 - Colitis SNOMED: 462939212 (4) Pyelonephritis ICD Codes: N12 - Pyelonephritis SNOMED: 29613137 (5) Sepsis ICD Codes: A41.9 - Sepsis SNOMED: 25321996 (6) UTI (urinary tract infection) ICD Codes: N39.0 - Urinary tract infection, site not specified SNOMED: 25829495 (7) Diastolic CHF with preserved left ventricular function, NYHA class 2 ICD Codes: I50.30 - Unspecified diastolic (congestive) heart failure SNOMED: 771289077, 045090141, 516077957, 497814209 (8) Diarrhea ICD Codes: R19.7 - Diarrhea SNOMED: 04333946 Qualifiers: Qualified Codes: A09 - Infectious gastroenteritis and colitis, unspecified Status: stable, progressing Assessment/Plan iv abx per id picc line follow up cultures pain rx ivf xarelto remeron for appetite pain rx will need snf placement Subjective ROS Limited/Unobtainable: No Constitutional: Reports: malaise, weakness HEENT: Reports: no symptoms Cardiovascular: Reports: no symptoms Respiratory: Reports: no symptoms Gastrointestinal/Abdominal: Reports: diarrhea, no symptoms Genitourinary: Reports: no symptoms Neurologic/Psychiatric: Reports: paresthesia, pre-existing deficit Endocrine: Reports: no symptoms Hematologic/Lymphatic: Reports: anemia Allergies: Coded Allergies: No Known Allergies (Verified , 05/29/09) All Systems: reviewed and negative except above Subjective feels "a little better." no cp/sob. +phatom limb pain. diarrhea better. poor iv access(neck) surgery appreciated. only seroma Objective Last 24 Hour Vital Signs Date Time Temp Pulse Resp B/P Pulse Ox O2 Delivery O2 Flow Rate FiO2 04/20/17 12:00 97.7 84 18 115/69 98 Room Air 04/20/17 11:56 122/64 04/20/17 09:27 79 130/68 04/20/17 08:00 97.2 79 18 130/68 99 Room Air 04/20/17 06:01 142/81 04/20/17 06:01 142/81 04/20/17 04:00 96.0 75 20 142/81 100 Room Air 04/20/17 00:07 128/65 04/20/17 00:00 97.7 74 20 128/65 99 Room Air 04/19/17 22:01 129/70 04/19/17 20:00 98.2 93 20 129/70 97 Room Air 04/19/17 17:10 126/60 04/19/17 15:41 98.0 79 19 126/60 99 Room Air 04/19/17 15:03 154/81 Intake and Output 04/19/17 04/20/17 19:00 07:00 Intake Total 1695 ml 1164.916 ml Output Total 800 ml Balance 895 ml 1164.916 ml Intake Oral 720 ml 360 ml IV Total 975 ml 804.916 ml Output Urine Total 800 ml # Voids 2 Laboratory Tests 04/20/17 06:50: Sodium Level 140, Potassium Level 3.4, Chloride Level 105, Carbon Dioxide Level 23, Anion Gap 12, Blood Urea Nitrogen 14, Creatinine 0.8, Estimat Glomerular Filtration Rate , Glucose Level 135H, Calcium Level 9.0, Cyclosporine (by HPLC) [Pending] Height (Feet): 5 Height (Inches): 2.00 Weight (Pounds): 130 Objective General Appearance: WD/WN, alert, thin EENT: PERRL/EOMI Neck: non-tender, normal alignment, supple Cardiovascular: normal rate Respiratory/Chest: chest wall non-tender, lungs clear, normal breath sounds, no respiratory distress Abdomen: normal bowel sounds, non tender, soft, no organomegaly, no mass Edema: no edema noted Arm (L), no edema noted Arm (R), no edema noted Leg (L), no edema noted Leg (R), no edema noted Pedal (L), no edema noted Pedal (R), no edema noted Generalized 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
--- NOTE | 2017-04-20 15:28 | Nephrology Progress Note ---
Assessment/Plan Problem List: (1) Kidney transplanted (2) UTI (urinary tract infection) (3) Diarrhea (4) Diastolic CHF with preserved left ventricular function, NYHA class 2 (5) Abdominal pain (6) Incontinence of urine in female (7) Peripheral vascular disease Plan Imuran reduced from 75 to 50 mg daily in view of diarrhea--when improved I would reorder 75 mg. ESBL uti on zosyn. Hypokalemia and kcl ordered Subjective Constitutional: Reports: weakness HEENT: Reports: no symptoms Genitourinary: Reports: incontinence Neurologic/Psychiatric: Reports: no symptoms Subjective less diarrhea Objective Objective Last 24 Hour Vital Signs Date Time Temp Pulse Resp B/P Pulse Ox O2 Delivery O2 Flow Rate FiO2 04/20/17 14:31 142/86 04/20/17 12:00 97.7 84 18 115/69 98 Room Air 04/20/17 11:56 122/64 04/20/17 09:27 79 130/68 04/20/17 08:00 97.2 79 18 130/68 99 Room Air 04/20/17 06:01 142/81 04/20/17 06:01 142/81 04/20/17 04:00 96.0 75 20 142/81 100 Room Air 04/20/17 00:07 128/65 04/20/17 00:00 97.7 74 20 128/65 99 Room Air 04/19/17 22:01 129/70 04/19/17 20:00 98.2 93 20 129/70 97 Room Air 04/19/17 17:10 126/60 04/19/17 15:41 98.0 79 19 126/60 99 Room Air Intake and Output 04/19/17 04/20/17 19:00 07:00 Intake Total 1695 ml 1164.916 ml Output Total 800 ml Balance 895 ml 1164.916 ml Intake Oral 720 ml 360 ml IV Total 975 ml 804.916 ml Output Urine Total 800 ml # Voids 2 Laboratory Tests 04/20/17 06:50: Sodium Level 140, Potassium Level 3.4, Chloride Level 105, Carbon Dioxide Level 23, Anion Gap 12, Blood Urea Nitrogen 14, Creatinine 0.8, Estimat Glomerular Filtration Rate , Glucose Level 135H, Calcium Level 9.0, Cyclosporine (by HPLC) [Pending] Height (Feet): 5 Height (Inches): 2.00 Weight (Pounds): 130 General Appearance: no apparent distress, alert EENT: normal ENT inspection Neck: normal alignment Cardiovascular: normal rate Respiratory/Chest: lungs clear Abdomen: non tender, soft Extremities: other - r aka no edema Neurologic: tester electronic scale II-XII grossly normal APURVA ROBERTSON Apr 20, 2017 15:28
[2017-04-20 16:00] VITALS: BP 128/77
[2017-04-20] MEDS: Xarelto 15mg tab ORAL SCH (16:25)
[2017-04-20 20:00] VITALS: BP 144/70
[2017-04-21] VITALS (7 sets, daily range): BP systolic 104–158; BP diastolic 60–83
[2017-04-21] MEDS: Vancomycin 750mg/D5W 275ml IVPB SCH ×2 (02:47)
[2017-04-21] MEDS: HydrALAZINE 25mg tab ORAL SCH ×2 (05:53→15:38)
[2017-04-21] MEDS: HYDROmorphone 1mg/ml Carpuject IVP PRN ×3 (05:54→17:30)
[2017-04-21] MEDS: metroNIDAZOLE 500mg tab ORAL SCH (05:54)
[2017-04-21] MEDS: Piperacillin/Tazobactam 3.375 GM in D5W 110 ML IVPB SCH (05:59)
[2017-04-21] MEDS: Ascorbic Acid 500mg tab ORAL SCH (08:57)
[2017-04-21] MEDS: Lyrica 50mg cap ORAL SCH (08:59)
[2017-04-21] MEDS ORDERED: Dyna-Hex 2% Top Sol 8oz TOPIC SCH ×2 (09:00→11:00)
[2017-04-21] MEDS: azaTHIOprine 50 MG TAB ORAL SCH (09:00)
[2017-04-21] MEDS: Furosemide 40mg tab ORAL SCH (09:00)
[2017-04-21] MEDS: cycloSPORINE 100mg cap ORAL SCH (09:01)
--- NOTE | 2017-04-21 09:16 | General Progress Note ---
Assessment/Plan Problem List: (1) Failure to thrive in adult ICD Codes: R62.7 - Adult failure to thrive SNOMED: 305222256 (2) Abdominal abscess ICD Codes: K65.1 - Peritoneal abscess SNOMED: 19726766 (3) Colitis ICD Codes: K52.9 - Colitis SNOMED: 110379023 (4) Pyelonephritis ICD Codes: N12 - Pyelonephritis SNOMED: 68772390 (5) Sepsis ICD Codes: A41.9 - Sepsis SNOMED: 22348837 (6) UTI (urinary tract infection) ICD Codes: N39.0 - Urinary tract infection, site not specified SNOMED: 40548058 (7) Diastolic CHF with preserved left ventricular function, NYHA class 2 ICD Codes: I50.30 - Unspecified diastolic (congestive) heart failure SNOMED: 340124579, 525801833, 509279190, 095187942 (8) Diarrhea ICD Codes: R19.7 - Diarrhea SNOMED: 36772626 Qualifiers: Qualified Codes: A09 - Infectious gastroenteritis and colitis, unspecified Status: stable, progressing Assessment/Plan iv abx per id id consult pending picc line placed follow up cultures pain rx ivf xarelto remeron for appetite pain rx will need snf placement stable for dc. may need iv abx at snf Subjective ROS Limited/Unobtainable: No Constitutional: Reports: malaise, weakness HEENT: Reports: no symptoms Cardiovascular: Reports: no symptoms Respiratory: Reports: no symptoms Gastrointestinal/Abdominal: Reports: diarrhea Genitourinary: Reports: no symptoms Neurologic/Psychiatric: Reports: paresthesia, pre-existing deficit Endocrine: Reports: no symptoms Hematologic/Lymphatic: Reports: no symptoms Allergies: Coded Allergies: No Known Allergies (Verified , 05/29/09) All Systems: reviewed and negative except above Subjective no cp/sob. +phatom limb pain. diarrhea better. picc line placed yesterday. surgery appreciated. only seroma Objective Last 24 Hour Vital Signs Date Time Temp Pulse Resp B/P Pulse Ox O2 Delivery O2 Flow Rate FiO2 04/21/17 09:00 79 133/77 04/21/17 07:58 97.7 79 21 133/77 100 Room Air 04/21/17 05:53 147/83 04/21/17 05:53 147/83 04/21/17 05:51 147/83 04/21/17 04:00 97.5 89 20 104/67 100 Room Air 04/21/17 00:00 97.7 91 20 151/76 99 Room Air 04/20/17 23:59 151/76 04/20/17 21:26 144/70 04/20/17 20:00 97.7 83 20 144/70 99 Room Air 04/20/17 18:23 117/63 04/20/17 16:00 98.0 78 18 128/77 99 Room Air 04/20/17 14:31 142/86 04/20/17 12:00 97.7 84 18 115/69 98 Room Air 04/20/17 11:56 122/64 04/20/17 09:27 79 130/68 Intake and Output 04/20/17 04/21/17 19:00 07:00 Intake Total 1015 ml 385.000 ml Balance 1015 ml 385.000 ml Intake Oral 640 ml IV Total 375 ml 385.000 ml # Voids 3 5 Laboratory Tests 04/21/17 00:55: Vancomycin Level Trough 11.2 Height (Feet): 5 Height (Inches): 2.00 Weight (Pounds): 130 Objective General Appearance: WD/WN, alert, thin EENT: PERRL/EOMI Neck: non-tender, normal alignment, supple Cardiovascular: normal rate Respiratory/Chest: chest wall non-tender, lungs clear, normal breath sounds, no respiratory distress Abdomen: normal bowel sounds, non tender, soft, no organomegaly, no mass Edema: no edema noted Arm (L), no edema noted Arm (R), no edema noted Leg (L), no edema noted Leg (R), no edema noted Pedal (L), no edema noted Pedal (R), no edema noted Generalized 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
[2017-04-21] MEDS ORDERED: Lidocaine 1% Plain 30 ml INJ ONE (11:00)
[2017-04-21] MEDS ORDERED: Heparin 2000 units/Ns 1000ml INJ ONE (11:00)
--- NOTE | 2017-04-21 13:17 | Nephrology Progress Note ---
Assessment/Plan Problem List: (1) Kidney transplanted (2) UTI (urinary tract infection) (3) Diarrhea (4) Diastolic CHF with preserved left ventricular function, NYHA class 2 (5) Abdominal pain (6) Incontinence of urine in female (7) Peripheral vascular disease Plan Imuran reduced from 75 to 50 mg daily in view of diarrhea--when improved I would reorder 75 mg. ESBL uti on zosyn. Hypokalemia and kcl ordered--but might not need senior care Subjective Constitutional: Reports: weakness HEENT: Reports: no symptoms Genitourinary: Reports: incontinence Neurologic/Psychiatric: Reports: no symptoms Subjective less diarrhea Objective Objective Last 24 Hour Vital Signs Date Time Temp Pulse Resp B/P Pulse Ox O2 Delivery O2 Flow Rate FiO2 04/21/17 12:12 120/65 04/21/17 12:00 120/65 04/21/17 11:49 97.7 82 21 115/60 100 Room Air 04/21/17 09:00 79 133/77 04/21/17 07:58 97.7 79 21 133/77 100 Room Air 04/21/17 05:53 147/83 04/21/17 05:53 147/83 04/21/17 05:51 147/83 04/21/17 04:00 97.5 89 20 104/67 100 Room Air 04/21/17 00:00 97.7 91 20 151/76 99 Room Air 04/20/17 23:59 151/76 04/20/17 21:26 144/70 04/20/17 20:00 97.7 83 20 144/70 99 Room Air 04/20/17 18:23 117/63 04/20/17 16:00 98.0 78 18 128/77 99 Room Air 04/20/17 14:31 142/86 Intake and Output 04/20/17 04/21/17 18:59 06:59 Intake Total 1015 ml 385.000 ml Balance 1015 ml 385.000 ml Intake Oral 640 ml IV Total 375 ml 385.000 ml # Voids 3 5 Laboratory Tests 04/21/17 00:55: Vancomycin Level Trough 11.2 Height (Feet): 5 Height (Inches): 2.00 Weight (Pounds): 130 General Appearance: no apparent distress, alert EENT: normal ENT inspection Neck: normal alignment Cardiovascular: normal rate, regular rhythm Respiratory/Chest: lungs clear, normal breath sounds Abdomen: non tender, soft Extremities: other - r leg amputee no edema 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
[2017-04-21] MEDS ORDERED: Meropenem 500 MG in NS 55 ML IVPB SCH (14:00)
--- NOTE | 2017-04-21 16:00 | General Progress Note ---
Progress Note Progress Note Surgery Patient seen and examined at bedside. doing well. no issues. comfortable. no pain. no n/v/f/c. tolerating oral. good BM's. no acute surgical intervention necessary okay to d/c from surgical standpoint will follow. Thomas Franklin Apr 21, 2017 15:59
--- NOTE | 2017-04-21 16:00 | Consultation ---
DATE OF CONSULTATION: 04/21/2017 INFECTIOUS DISEASE CONSULTATION REFERRING PHYSICIAN: John Red M.D. REASON FOR CONSULTATION: Urinary tract infection. HISTORY OF PRESENTING ILLNESS: This is a 77-year-old lady with history of kidney transplant, diabetes, hypertension and right BKA who came in because she had diarrhea and abdominal pain. She was found to have a urinary tract infection and there is also concern for an abdominal abscess and an Infectious Diseases consultation has been obtained for antibiotics. PAST MEDICAL HISTORY: 1. History of diabetes. 2. Hypertension. 3. History of renal transplant. 4. Right BKA. 5. History of DVT. MEDICATIONS: As an inpatient, the patient is on lidocaine, chlorhexidine, potassium, azathioprine, Zosyn, Remeron, Imodium, IV vancomycin, Xarelto, Norvasc, ascorbic acid, cetirizine, cyclosporine, ferrous sulfate, furosemide, Protonix, Lyrica, Flagyl, clonidine, hydralazine, Artificial Tears, Dilaudid, [place], Restoril, Robitussin and Zofran. ALLERGIES: No known drug allergies. SOCIAL HISTORY: No history of smoking, alcohol, or drug use. FAMILY HISTORY: Unknown. REVIEW OF SYSTEMS: Respiratory: No fever, chills, cough, shortness of breath or chest pain. Cardiac: No chest pain. No palpitations. No dizziness. No syncope. Gastrointestinal: She had abdominal pain and diarrhea, has resolved. Genitourinary: No dysuria. No hematuria. PHYSICAL EXAMINATION: VITAL SIGNS: Temperature of 97.7 degrees, T-max of 98.2 degrees, pulse of 79, respiratory 21, blood pressure 133/77 and O2 saturation of 100%. HEENT: Pupils equally reactive to light and accommodation. Mouth appears clean without thrush. NECK: Supple. No adenopathy. No JVD. CARDIOVASCULAR: Regular rate and rhythm. No murmurs. LUNGS: Clear to auscultation bilaterally. No crackles. No wheezes. ABDOMEN: Soft and nontender. No organomegaly. EXTREMITIES: No cyanosis and no clubbing. Right stump is clean. Left leg edema noted. LABORATORY AND DIAGNOSTIC DATA: White count 4.4, hemoglobin 11.5, hematocrit 33.9, MCV 103, platelet count of 176,000 and neutrophils of 63%. Sodium 140, potassium 3.4, chloride 105, bicarbonate 23, BUN 14, creatinine 0.8 and glucose 135. Calcium of 9. On 04/17/2017, total bilirubin 0.3, AST 35, ALT 14, and alkaline phosphatase 80. CK of 48. Troponin less than 0.3. Total protein 8. Albumin 4. Urinalysis showing too numerous to count white cells. Urine culture growing ESBL E coli on 04/17/2017, which is imipenem susceptible, ertapenem susceptible, and piperacillin tazobactam susceptible. Blood culture growing coagulase-negative Staph from the 04/17/2017. A 04/17/2017 nasal swab was positive for MRSA. A 04/17/2017 rectal swab was positive for VRE. Stool for C. difficile is negative. CT abdomen and pelvis showing bladder wall thickening, right lower quadrant transplant kidney, cholecystectomy, hysterectomy noted, small oval complex fluid collection in the right lower anterior abdominal wall, probably an old hematoma or postoperative fluid. Chest x-ray was unremarkable. ASSESSMENT: This is a 77-year-old lady with history of renal transplant diabetes and hypertension, who comes in and is found to have 1. Escherichia coli urinary tract infection. 2. Positive blood cultures with coagulase-negative Staph is likely a contaminant. 3. Methicillin resistant Staphylococcus aureus nasal colonization. 4. Rectal vancomycin resistant enterococcus colonization. PLAN: 1. Discontinue vancomycin, Zosyn and Flagyl. 2. We will start the patient on meropenem. 3. We will follow up cultures. I would like to thank, Dr. Red, for this consultation. Nikki Bob M.D. DR: KANDY JOB#: [id number] CC: John Red M.D.
[2017-04-21] MEDS ORDERED: NORCO 10/3251 EA ORAL (16:07)
[2017-04-21] MEDS ORDERED: ANTI-DIARRHEA2 MG PO (16:07)
[2017-04-21] MEDS ORDERED: MIRTAZAPINE7.5 MG ORAL (16:07)
[2017-04-21] MEDS ORDERED: MERREM500 MG IVPB (16:07)
[2017-04-21] MEDS ORDERED: AZATHIOPRINE50 MG PO (16:07)
[2017-04-21] MEDS ORDERED: POTASSIUM CHLO20 ME2 ORAL (16:07)
[2017-04-21] MEDS: Xarelto 15mg tab ORAL SCH (17:30)
[2017-04-21] MEDS ORDERED: Tubing IV Secondary IV ONE (17:59)
--- NOTE | 2017-04-22 02:30 | Progress Note ---
DATE: 04/20/2017 CARDIOLOGY PROGRESS NOTE SUBJECTIVE: Condition improved. Tolerating diet. No vomiting. No diarrhea. Continues on IV antibiotics. Blood pressure parameters were stable. No shortness of breath or chest pain. OBJECTIVE: VITAL SIGNS: Blood pressure 122/64, pulse 79, respiratory rate 18, and afebrile. HEENT: Arcus senilis. Oropharynx clear. NECK: Supple. LUNGS: Clear. CARDIAC: Regular rhythm and rate. Normal S1 and S2 with a fourth heart sound. ABDOMEN: Soft. No focal tenderness. EXTREMITIES: No edema. Right BKA stump is clean. IMPRESSION: 1. No signs of acute abdominal process or abscess. 2. No surgical intervention planned. 3. Stable cardiovascular parameters. 4. History of deep venous thrombosis and risk for pulmonary embolus. PLAN: 1. Continue current cardiovascular regimen. 2. Maintain adequate oral hydration. 3. Resume anticoagulation with rivaroxaban. 4. Outpatient pacemaker interrogation every 6 months. Matthew Tinajero M.D. DR: PATRICIA JOB#: [id number] CC:
--- NOTE | 2017-04-22 02:45 | Progress Note ---
CARDIOLOGY PROGRESS NOTE DATE: 04/21/2017 SUBJECTIVE: The patient is comfortable with no pain. Tolerating diet. Good bowel movements. OBJECTIVE: VITAL SIGNS: Blood pressure 120/65, pulse 82, and respirations 21. No fevers. LUNGS: Clear. CARDIAC: Regular rhythm and rate. Normal S1, S2 with no murmur. ABDOMEN: Soft and nontender. EXTREMITIES: With no edema. LABORATORY DATA: From yesterday are reviewed. IMPRESSION: 1. No signs of acute abdominal process. 2. Resolved gastroenteritis. 3. Rehydrated. 4. Resolved hypertensive urgency. 5. Hypertensive heart disease with overall adequate blood pressure control at this time. 6. No signs of acute congestive heart failure. 7. Renal transplant. 8. Right BKA. 9. Diabetes mellitus with complication. 10. Permanent pacemaker with stable function. PLAN: Plan of care reviewed. Outpatient management at snf facility. No change in current cardiovascular regimen including full anticoagulation with rivaroxaban. Dose adjusted for renal impairment. Matthew Tinajero M.D. DR: CIARRA JOB#: [id number] CC:
--- NOTE | 2017-04-22 02:45 | Progress Note ---
DATE: 04/18/2017 CARDIOLOGY PROGRESS NOTE Late entry for 04/18/2017. SUBJECTIVE: The patient continues to have abdominal pain, slightly improved. Diarrhea decreased. Afebrile. OBJECTIVE: VITAL SIGNS: Blood pressure is 144/86, heart rate 62, respiratory rate 20, and afebrile. NECK: Supple. LUNGS: Clear. CARDIAC: Regular. Normal S1 and S2 with a fourth heart sound. ABDOMEN: Soft. Mild tenderness. No guarding or rebound. EXTREMITIES: Right BKA. LABORATORY DATA: No new laboratories. IMPRESSION: 1. Probable gastroenteritis with abdominal pain, diarrhea, and associated dehydration and hypovolemia with recovered shock. 2. Hypertensive urgency, resolved. 3. Permanent pacemaker. 4. Renal transplant. PLAN: 1. Hydration. 2. Antimicrobials. 3. Titrate cardiovascular medications based on clinical parameters and volume status. 4. Follow up imaging studies. 5. DVT prophylaxis. Matthew Tinajero M.D. DR: LALY JOB#: [id number] CC:
--- NOTE | 2017-04-22 02:45 | Progress Note ---
DATE: 04/19/2017 CARDIOLOGY PROGRESS NOTE Late entry for 04/19/2017. SUBJECTIVE: The patient's pain is better controlled. She has no chest pain or shortness of breath. She does have a limb pain of her amputation site. No diarrhea. Cultures are positive for urinary tract infection and the concern is raised by imaging studies of possible abdominal abscess. PHYSICAL EXAMINATION: VITAL SIGNS: Afebrile, blood pressure 133/77, pulse 79, and respirations 21. LUNGS: Clear. CARDIAC: Regular. ABDOMEN: Soft. No focal tenderness. EXTREMITIES: Right BKA stump is clean. No edema. LABORATORY DATA: Admission laboratories noted. IMPRESSION: 1. Escherichia coli urinary tract infection. 2. Methicillin-resistant Staphylococcus aureus nasal colonization. 3. Vancomycin-resistant Enterococcus rectal colonization. 4. Peripheral artery disease with right below knee amputation. 5. Hypertensive urgency, resolved. 6. Hypertensive heart disease. 7. Renal transplant. 8. Diabetes mellitus with multiple complications. 9. Permanent pacemaker for advanced conduction system disease with stable function. 10. History of deep vein thrombosis. PLAN: 1. Maintain adequate hydration. 2. Antimicrobials per Infectious Disease [employer] consultant. 3. Titrate antihypertensives. 4. Hold anticoagulation in view of possible abdominal process. Matthew Tinajero M.D. DR: ASHLEIGH JOB#: [id number] CC:
--- NOTE | 2017-04-22 03:00 | Consultation ---
DATE OF CONSULTATION: 04/17/2017 CARDIOLOGY CONSULTATION REQUESTING PHYSICIAN: John Red M.D. REASON FOR CONSULTATION: Dehydration in the setting of cardiomyopathy and renal transplant. HISTORY OF PRESENT ILLNESS: This 77-year-old female, has had up to 20 episodes of watery diarrhea daily for the past few days. She has had some abdominal pain. No nausea or vomiting. She has noted decreased urine output. She has been lightheaded and weak. She has not had chest pain, but has noted were right shoulder pain that she relates to a fall one month ago. The patient was seen in the emergency room and hospitalization initiated. I have been asked to assist with cardiovascular care. PAST MEDICAL HISTORY: Type 2 diabetes mellitus, diabetic neuropathy, peripheral artery disease, right BKA, hypertensive heart disease, atherosclerotic heart disease, renal transplant, rasheeda arrhythmias, permanent pacemaker, chronic obstructive pulmonary disease, seizure disorder, and gastroparesis. History of DVT. ALLERGIES: None. FAMILY HISTORY: Noncontributory. SOCIAL HISTORY: Positive for smoking. No alcohol or substance abuse. REVIEW OF SYSTEMS: The pacemaker was interrogated within the last three months. Function was appropriate. Her most recent echocardiogram revealed normal ejection fraction with concentric hypertrophy and a diastolic relaxation abnormality. There is no history of flow-limiting coronary disease. She has significant peripheral artery disease and has gangrene with a right a BKA many years ago. PHYSICAL EXAMINATION: VITAL SIGNS: Afebrile. Blood pressure 174/78, pulse 74, and respiratory rate 20. HEENT: Normocephalic and atraumatic. Conjunctivae pink. Arcus senilis. Oropharynx clear. Mucous membranes dry. NECK: Supple. Jugular venous pressure normal. LUNGS: Clear. No breast masses. CARDIAC: Regular rhythm and rate. Normal S1 and S2 with a fourth heart sound. ABDOMEN: Soft and nontender. EXTREMITIES: Right BKA and no edema. LABORATORY AND DIAGNOSTIC DATA: air sampling and monitoring reveals atrial pacing. White count 4.4, hemoglobin 11.5. Sodium 140, potassium 3.4, BUN 21, creatinine 0.9. Albumin 4. Troponin negative. IMPRESSION: 1. Hypovolemia. 2. Dehydration due to diarrhea, probable gastroenteritis. 3. Permanent pacemaker. 4. Hypertensive heart disease with hypertensive urgency. 5. Chronic diastolic congestive heart failure. 6. Diabetes mellitus with multiple complications. 7. History of renal transplants. 8. History of below knee amputation and associated immobility. 9. History of deep venous thrombosis and anticoagulants. PLAN: Hydration, antimicrobials. Imaging studies of the abdomen. No change in cardiovascular regimen. No plan for as an outpatient pacemaker and follow-ups are scheduled for interrogation. Matthew Tinajero M.D. DR: LORI JOB#: [id number] CC:
--- NOTE | 2017-04-22 08:14 | Diagnostic Imaging Report ---
Indication: technician terminal and repeater venous access Findings: After the indications, procedure, risks, complications, and alternatives of the procedure were explained, written informed consent was obtained. The right upper extremity was prepped with alcohol. All elements of maximal sterile barrier technique were followed including usage of a cap, mask, sterile gown, sterile gloves, hand hygiene and a large sterile sheet. Sonographic evaluation of the upper extremity was performed demonstrating a patent and compressible brachial vein. Access was obtained under real-time ultrasound guidance and digital image was saved and archived. An .018 wire was introduced. Needle exchanged for a 5 Arabic peel-away sheath. Measurements were obtained. A 5 Arabic dual-lumen Power PICC line catheter was cut to 25 cm and introduced over the wire. Peel-away sheath and wire were removed.Catheter was secured to the skin using 2-0 Prolene suture. Both ports aspirate and flush easily. Fluoroscopic Images show distal tip in the right axillary vein. Attempts at passing the catheter beyond this point were unsuccessful. Total fluoroscopic time 0.4 minutes Impression: Successful placement of an upper extremity PICC line catheter. The tip is in a peripheral vein.
--- NOTE | 2017-04-22 17:26 | Cardiology Report ---
APPROVED REPORT EKG Measurement Heart [id number] DE 132P [id number] Atrial Pacemaker Otherwise normal ECG
--- NOTE | 2017-04-23 16:54 | Discharge Summary ---
Discharge Summary Hospital Course Date of Admission Apr 17, 2017 at 15:14 Date of Discharge Apr 21, 2017 at 18:00 Admitting Diagnosis -weakness HPI Jazzmineevelyn Jones is a 77 year old female who was admitted on Apr 17, 2017 at 15: 14 for Weakness Hospital Course [id number] Discharge Discharge Disposition Patient was discharged to SNF/Subacute Facility(03) Discharge Diagnoses: Vannessa Damon NP Apr 23, 2017 16:53
--- NOTE | 2017-04-23 22:31 | Discharge Summary 2 SIG ---
DATE OF ADMISSION: 04/17/2017 DATE OF DISCHARGE: 04/21/2017 CONSULTANTS: 1. Thomas Franklin M.D. 2. Kade Cochran M.D. 3. Nikki Bob M.D. 4. Matthew Tinajero M.D. BRIEF HOSPITAL COURSE: The patient is a 77-year-old female with history of right BKA, kidney transplant, hypertension, diabetes, and history of DVT, on Xarelto, was recently discharged from an outside hospital. She was at home for several days and developed severe diarrhea as well as abdominal pain. There was report of fall. She was then taken to the emergency room. On evaluation, she had normal white count, however CT of the abdomen showed possible fluid collection and possible abscess. Urinalysis had too numerous to count WBCs. She was started on broad-spectrum IV antibiotic therapy and was admitted to med/surg for evaluation of diarrhea, abdominal pain, urinary tract infection with possible early sepsis, and possible abdominal abscess. Surgical evaluation was done. The CAT scan of the abdomen was reviewed with the radiologist. There was no evidence of intestinal obstruction. There was some gas noted in the bladder. There was no stranding around the bladder. The transplanted kidney is normal and there is a 3 cm mass above the level of the fascia at the level of the transplant. The mass does not appear related to the kidney. Cystic mass in the lower abdomen appeared to be chronic, possibly seroma from kidney transplant. There was no need for surgical intervention. She was seen by Infectious Disease specialist and thread laster. Diarrhea was multifactorial, which could be due to Imuran and other medications. Imuran was reduced from 75 to 50 mg daily in view of diarrhea. KCl was also given due to low potassium levels. Urine culture showed growth of E. coli. Blood cultures was positive with coagulase negative Staph, likely contaminant. Vancomycin, Zosyn, and Flagyl was discontinued and was given meropenem. Diarrhea improved and the patient has been tolerating diet. She was eventually discharged to [facility]. FINAL DIAGNOSES: 1. Sepsis. 2. Pyelonephritis. 3. Urinary tract infection with Escherichia coli. 4. Failure to thrive. 5. Abdominal abscess. 6. Colitis. 7. Dehydration due to diarrhea with probable gastroenteritis. 8. Permanent pacemaker. 9. Hypertensive heart disease with hypertensive urgency. 10. Chronic diastolic congestive heart failure. 11. Diabetes mellitus with multiple complications. 12. Renal transplant. 13. Peripheral artery disease with right below-knee amputation. 14. Methicillin-resistant Staphylococcus aureus and vancomycin-resistant enterococcus colonization. 15. Incontinence of urine in female. John Red M.D. I have been assigned to dictate discharge summary on this account and I was not involved in the patient's management. Vannessa Damon N.P. DR: ISAIAS JOB#: [id number] CC: [place]
== END 2017-04-21 18:00 | DRG 871 ==
LOC: EMR 14:47 → 4E 15:14 → EDBEDREQSVC 19:33 → EDBEDREQ 20:56
PROC: 05H733Z Insertion of Infusion Device into Right Axillary Vein, Percutaneous Approach (ICD-10-PCS; principal; 2017-04-21)
DX: A41.9 Sepsis, unspecified organism (principal); K65.1 Peritoneal abscess; E11.40 Type 2 diabetes mellitus with diabetic neuropathy, unspecified; I11.0 Hypertensive heart disease with heart failure; I50.32 Chronic diastolic (congestive) heart failure; Z94.0 Kidney transplant status; N12 Tubulo-interstitial nephritis, not specified as acute or chronic; Z86.718 Personal history of other venous thrombosis and embolism; Z79.01 Long term (current) use of anticoagulants; Z87.891 Personal history of nicotine dependence; Z89.511 Acquired absence of right leg below knee; R32 Unspecified urinary incontinence; G89.4 Chronic pain syndrome; B96.20 Unspecified Escherichia coli [E. coli] as the cause of diseases classified elsewhere; Z22.322 Carrier or suspected carrier of Methicillin resistant Staphylococcus aureus; Z95.0 Presence of cardiac pacemaker; E86.1 Hypovolemia; E86.0 Dehydration; I16.0 Hypertensive urgency; R19.7 Diarrhea, unspecified; T45.1X5A Adverse effect of antineoplastic and immunosuppressive drugs, initial encounter; I73.9 Peripheral vascular disease, unspecified; R62.7 Adult failure to thrive; K52.9 Noninfective gastroenteritis and colitis, unspecified; Z91.81 History of falling; G54.6 Phantom limb syndrome with pain
CPT/HCPCS: 36415; 36569; 71010; 74176; 76937; 80048; 80053; 80158; 80202; 80300; 81003; 82550; 84484; 85025; 87040; 87081; 87086; 87181; 87324; 93005; J8499

== ENCOUNTER 2017-09-21 10:55 | Outpatient (CLI) | payer MEDICAID, MEDICARE ==
[~2017-09-21 10:55] MED LIST changes: +ANTI-DIARRHEA2 MG PO; +MERREM500 MG IVPB; +MIRTAZAPINE7.5 MG ORAL; +NORCO 10/3251 EA ORAL; +POTASSIUM CHLO20 ME2 ORAL
[2017-09-21 11:12] LABS: BASOPHILS % (AUTO) 0.8 % (0.0-2.0); LYMPHOCYTES % (AUTO) 26.8 % (20.0-45.0); MEAN CORPUSCULAR HEMOGLOBIN 33.2 PG (27.0-31.0); MEAN CORPUSCULAR VOLUME 104 FL (80-99); MEAN PLATELET VOLUME 9.4 FL (6.5-10.1); MONOCYTES % (AUTO) 3.4 % (1.0-10.0); PLATELET COUNT 188 K/UL (150-450); RED BLOOD COUNT 4.05 M/UL (4.20-5.40); RED CELL DISTRIBUTION WIDTH 13.4 % (11.6-14.8)
[2017-09-21 11:52] LABS: ALANINE AMINOTRANSFERASE 8 U/L (12-78); ALBUMIN/GLOBULIN RATIO 0.7 (1.0-2.7); ANION GAP 9 mmol/L (5-15); ASPARTATE AMINO TRANSFERASE 17 U/L (15-37); CALCIUM 9.4 MG/DL (8.5-10.1); CARBON DIOXIDE 24 MMOL/L (21-32); CHLORIDE 107 MMOL/L (98-107); SODIUM 140 MMOL/L (136-145); THYROID STIMULATING HORMONE 0.899 uiU/mL (0.358-3.740); TOTAL PROTEIN 8.8 G/DL (6.4-8.2)
[2017-09-21 12:28] LABS: HEMOGLOBIN A1C 5.6 % (4.3-6.0)
[2017-09-24 12:16] LABS: VITAMIN D 25-OH TOTAL 6.3 ng/mL (.)
== END 2017-09-21 12:55 | disposition home or self-care (01) ==
LOC: LAB 10:55
DX: E11.9 Type 2 diabetes mellitus without complications (principal); I10 Essential (primary) hypertension; Z94.0 Kidney transplant status
CPT/HCPCS: 36415; 80053; 82306; 83036; 84443; 85025

== ENCOUNTER → 2018-02-15 | Outpatient (CLI) | payer MEDICARE ==
[2018-02-15 14:03] LABS: BASOPHILS % (AUTO) 1.2 % (0.0-2.0); EOSINOPHILS % (AUTO) 0.3 % (0.0-3.0); HEMATOCRIT 41.5 % (37.0-47.0); HEMOGLOBIN 13.5 G/DL (12.0-16.0); LYMPHOCYTES % (AUTO) 35.9 % (20.0-45.0); MEAN CORPUSCULAR VOLUME 97 FL (80-99); MONOCYTES % (AUTO) 4.3 % (1.0-10.0); NEUTROPHILS % (AUTO) 58.3 % (45.0-75.0); PLATELET COUNT 179 K/UL (150-450); RED BLOOD COUNT 4.29 M/UL (4.20-5.40); RED CELL DISTRIBUTION WIDTH 11.9 % (11.6-14.8); WHITE BLOOD COUNT 6.4 K/UL (4.8-10.8)
[2018-02-15 14:25] LABS: ALANINE AMINOTRANSFERASE 20 U/L (12-78); ALBUMIN 3.8 G/DL (3.4-5.0); ALBUMIN/GLOBULIN RATIO 0.7 (1.0-2.7); ALKALINE PHOSPHATASE 99 U/L (46-116); ANION GAP 8 mmol/L (5-15); ASPARTATE AMINO TRANSFERASE 21 U/L (15-37); BILIRUBIN,TOTAL 0.7 MG/DL (0.2-1.0); BLOOD UREA NITROGEN 12 mg/dL (7-18); CALCIUM 9.7 MG/DL (8.5-10.1); CARBON DIOXIDE 25 MMOL/L (21-32); CHLORIDE 107 MMOL/L (98-107); POTASSIUM 3.6 MMOL/L (3.5-5.1); SODIUM 140 MMOL/L (136-145)
== END | disposition home or self-care (01) ==
LOC: LAB 13:13
DX: I10 Essential (primary) hypertension (principal)
CPT/HCPCS: 36415; 80053; 80158; 82306; 83036; 84443; 85025; 85651

== ENCOUNTER 2018-03-29 11:26 | Inpatient (IN) | payer MEDICARE ==
[~2018-03-29] VITALS: Ht 170.2 cm; Wt 61.0 kg
[2018-03-29] MEDS ORDERED: Artificial Tears 1.4% Op Soln BOTH EYES PRN (12:45)
[2018-03-29] MEDS ORDERED: Morphine Sulfate 2mg/ml Inj IVP PRN (13:00)
[2018-03-29] MEDS ORDERED: FLUDROCORTISON0.1 MG PO (13:51)
[2018-03-29] MEDS ORDERED: LOPERAMIDE2 M1 PO (13:51)
[2018-03-29] MEDS ORDERED: PANTOPRAZOLE SO40 MG ORAL (13:51)
[2018-03-29] MEDS ORDERED: LYRICA100 MG ORAL (13:51)
[2018-03-29] MEDS ORDERED: AMLODIPINE BESYL5 MG ORAL (13:51)
[2018-03-29] MEDS ORDERED: HYDRALAZINE HCL25 M1 ORAL (13:51)
[2018-03-29] MEDS ORDERED: MORPHINE SULFAT15 M1 PO (13:51)
[2018-03-29] MEDS ORDERED: HydrALAZINE 25mg tab ORAL SCH (15:00)
[2018-03-29 15:25] LABS: BASOPHILS % (AUTO) 0.9 % (0.0-2.0); EOSINOPHILS % (AUTO) 0.1 % (0.0-3.0); HEMATOCRIT 33.3 % (37.0-47.0); HEMOGLOBIN 11.1 G/DL (12.0-16.0); LYMPHOCYTES % (AUTO) 23.8 % (20.0-45.0); MEAN CORPUSCULAR VOLUME 97 FL (80-99); NEUTROPHILS % (AUTO) 69.1 % (45.0-75.0); PLATELET COUNT 142 K/UL (150-450); RED BLOOD COUNT 3.43 M/UL (4.20-5.40); RED CELL DISTRIBUTION WIDTH 13.1 % (11.6-14.8); WHITE BLOOD COUNT 6.2 K/UL (4.8-10.8)
[2018-03-29 15:46] LABS: ALANINE AMINOTRANSFERASE 13 U/L (12-78); ALBUMIN 3.4 G/DL (3.4-5.0); ALBUMIN/GLOBULIN RATIO 0.8 (1.0-2.7); ALKALINE PHOSPHATASE 84 U/L (46-116); ANION GAP 12 mmol/L (5-15); ASPARTATE AMINO TRANSFERASE 14 U/L (15-37); BILIRUBIN,TOTAL 0.7 MG/DL (0.2-1.0); BLOOD UREA NITROGEN 7 mg/dL (7-18); CALCIUM 9.1 MG/DL (8.5-10.1); CARBON DIOXIDE 22 MMOL/L (21-32); CHLORIDE 105 MMOL/L (98-107); CREATININE 0.8 MG/DL (0.55-1.30); POTASSIUM 3.2 MMOL/L (3.5-5.1); SODIUM 139 MMOL/L (136-145)
[2018-03-29 16:01] VITALS: BP 136/78
[2018-03-29] MEDS: HYDROcodone/Acetamin 10/325 tab ORAL PRN (16:12)
[2018-03-29] MEDS: Lomotil 2.5mg tab ORAL PRN (16:13)
[2018-03-29] MEDS: Lyrica 50mg cap ORAL SCH (17:24)
[2018-03-29] MEDS: Docusate 100mg cap ORAL SCH (17:25)
[2018-03-29] MEDS: cycloSPORINE 100mg cap ORAL SCH (17:25)
[2018-03-29] MEDS: Xarelto 15mg tab ORAL SCH (17:25)
--- NOTE | 2018-03-29 18:18 | Diagnostic Imaging Report ---
Indication: Cough Technique: One view of the chest Comparison: 04/17/2017 Findings: There is a left chest unifocal pacemaker. Lungs and pleural spaces are clear. Heart size is normal. The aorta is tortuous and calcified. There are surgical clips in the right upper quadrant. No significant change Impression: No acute process
[2018-03-29 20:00] VITALS: BP 118/51
[2018-03-29] MEDS: MS Contin 15mg tab ORAL SCH (20:36)
[2018-03-29] MEDS: HydrALAZINE 25mg tab ORAL SCH (21:54)
[2018-03-30] VITALS: BP 111/54
--- NOTE | 2018-03-30 00:15 | Consultation ---
DATE OF CONSULTATION: 03/29/2018 CARDIOLOGY CONSULTATION CONSULTING PHYSICIAN: Matthew Tinajero M.D. REQUESTING PHYSICIAN: John Red M.D. REASON FOR CONSULTATION: Chest pain. HISTORY OF PRESENT ILLNESS: This is an 78-year-old female, who is status post renal transplant. She has multiple medical problems. She has had several days of progressive pain in the abdomen radiating to her chest and following episodes of recurrent diarrhea. She has not had any melena, bright red blood per rectum or hematemesis, nor coffee-ground emesis. She has had discomfort in her chest on and off during the day. PAST MEDICAL HISTORY: Notable for hypertensive heart disease, microvascular coronary artery disease, diastolic dysfunction with history of congestive heart failure, history of paroxysmal supraventricular tachycardia, history of orthostatic hypotension, hypertensive heart disease, peripheral artery disease, right AKA, thrombophlebitis of the upper extremity, hx of LE DVT, renal transplant, history of pyelonephritis, recurring urinary tract infections, urinary incontinence, permanent pacemaker, and metabolic syndrome with glucose intolerance. ALLERGIES: None. FAMILY HISTORY: Noncontributory. SOCIAL HISTORY: Positive for smoking 50+ pack year approximation. No alcohol or substance abuse. REVIEW OF SYSTEMS: Her recent echocardiogram revealed normal ejection fraction, concentric hypertrophy, and mild degenerative valve disease. Her pacemaker was last interrogated about six months ago and functioning appropriately with adequate battery life. She does have a right BKA due to significant right-sided peripheral artery disease that manifested in gangrene. She has not had any history of flow-limiting coronary disease or chest pain pattern up until the last two to three days. There is no history of blood clotting, although she has had thrombophlebitis of her upper extremity in the past. All other systems are negative. PHYSICAL EXAM: VITAL SIGNS: Blood pressure 136/78, pulse 74, respiratory rate 18, afebrile, and oxygen saturation 98% on room air. HEENT: Temporal wasting. Pale conjunctivae. Arcus senilis. Oropharynx clear. Mucous membranes dry. NECK: Supple. Jugular venous pressure normal. LUNGS: Clear. CARDIAC: Regular rhythm and rate. Normal S1, S2 with a fourth heart sound. Pacemaker pocket site clean and dry. ABDOMEN: Soft and nontender. No guarding or rebound. EXTREMITIES: No edema. Distal pulses on the left, palpable. Right BKA stump clean and dry. NEUROLOGIC: Otherwise nonfocal. LABORATORY DATA: White count 6.2 and hemoglobin 11.1. Potassium 3.2. BUN 7 and creatinine 0.8. Troponin negative. Albumin 3.4. Liver function studies within normal limits. Glucose 144. IMPRESSION: 1. Diarrhea. 2. Hypovolemia and dehydration. 3. Anginal syndrome. 4. Hypertensive heart disease. 5. Chronic diastolic congestive heart failure. 6. Renal transplant. 7. Peripheral artery disease with right BKA. 8. Metabolic syndrome with glucose intolerance. 9. Permanent pacemaker. 10. Hx DVT with IVC filter. PLAN: 1. Antidiarrheal check. 2. Cyclosporine levels. 3. Hydrate with IV fluids. 4. Stress ulcer prophylaxes. 5. Serial troponin levels. 6. Antiplatelet therapy. 7. Replace potassium; check magnesium. 8. Full anticoagulation with rivaroxiban. 9. Stool studies. 10. Pacemaker interrogation. 11. Further recommendations to follow based on clinical course and we will consider my assessment of coronary flow reserve. Matthew Tinajero M.D. DR: LALY JOB#: [id number] CC: [place]
[2018-03-30] MEDS: HYDROcodone/Acetamin 10/325 tab ORAL PRN ×4 (00:43→22:04)
[2018-03-30] MEDS: Lomotil 2.5mg tab ORAL PRN ×2 (00:43→10:51)
[2018-03-30 04:00] VITALS: BP 115/61
[2018-03-30] MEDS: HydrALAZINE 25mg tab ORAL SCH ×3 (05:36→22:03)
[2018-03-30 07:17] LABS: APPEARANCE,URINE CLOUDY; BILIRUBIN, URINE NEGATIVE (NEGATIVE); COLOR,URINE PALE YELLOW; GLUCOSE, URINE (UA) NEGATIVE (NEGATIVE); KETONES,URINE NEGATIVE (NEGATIVE); LEUKOCYTE ESTERASE ,URINE 3+ (NEGATIVE); NITRITE,URINE NEGATIVE (NEGATIVE); PH,URINE 7 (4.5-8.0); PROTEIN,URINE 2+ (NEGATIVE); UROBILINOGEN,URINE NORMAL MG/DL (0.0-1.0)
[2018-03-30 07:57] LABS: BASOPHILS % (AUTO) 1.9 % (0.0-2.0); EOSINOPHILS % (AUTO) 1.4 % (0.0-3.0); HEMATOCRIT 33.6 % (37.0-47.0); HEMOGLOBIN 10.7 G/DL (12.0-16.0); LYMPHOCYTES % (AUTO) 46.4 % (20.0-45.0); MEAN CORPUSCULAR VOLUME 99 FL (80-99); MONOCYTES % (AUTO) 7.7 % (1.0-10.0); NEUTROPHILS % (AUTO) 42.7 % (45.0-75.0); PLATELET COUNT 141 K/UL (150-450); RED CELL DISTRIBUTION WIDTH 13.3 % (11.6-14.8); WHITE BLOOD COUNT 4.6 K/UL (4.8-10.8)
[2018-03-30 08:00] VITALS: BP 111/55
[2018-03-30] MEDS: Ascorbic Acid 500mg tab ORAL SCH (08:12)
[2018-03-30] MEDS: MS Contin 15mg tab ORAL SCH ×2 (08:13→20:36)
[2018-03-30] MEDS: cycloSPORINE 100mg cap ORAL SCH ×2 (08:13→17:19)
[2018-03-30] MEDS: azaTHIOprine 50 MG TAB ORAL SCH (08:13)
[2018-03-30] MEDS: Docusate 100mg cap ORAL SCH (08:14)
[2018-03-30] MEDS: Furosemide 40mg tab ORAL SCH (08:14)
[2018-03-30] MEDS: Lyrica 50mg cap ORAL SCH ×2 (08:14→17:20)
[2018-03-30 08:24] LABS: ALANINE AMINOTRANSFERASE 12 U/L (12-78); ALBUMIN 2.9 G/DL (3.4-5.0); ALBUMIN/GLOBULIN RATIO 0.6 (1.0-2.7); ALKALINE PHOSPHATASE 76 U/L (46-116); ANION GAP 8 mmol/L (5-15); ASPARTATE AMINO TRANSFERASE 13 U/L (15-37); BILIRUBIN,TOTAL 0.4 MG/DL (0.2-1.0); BLOOD UREA NITROGEN 7 mg/dL (7-18); CALCIUM 8.7 MG/DL (8.5-10.1); CARBON DIOXIDE 24 MMOL/L (21-32); CHLORIDE 107 MMOL/L (98-107); POTASSIUM 3.7 MMOL/L (3.5-5.1); SODIUM 139 MMOL/L (136-145)
[2018-03-30 12:00] VITALS: BP 137/79
--- NOTE | 2018-03-30 12:30 | History and Physical Report ---
DATE OF ADMISSION: 03/29/2018 CHIEF COMPLAINT: Diarrhea and chest pain. HISTORY OF PRESENT ILLNESS: The patient is a pleasant 78-year-old female, who presented to the office on the day of admission with complaints of chest pain, diarrhea, generalized weakness, failure to thrive. According to the patient, for the last week she has been having diarrhea with intermittent episodes of chest pain. She has had severe pain in the abdomen and lower extremities. She recently moved out of her grandchildren's apartment in [place]. When she moved out her grandchildren refused to give her any of her medications so that she has been without all of her medications including her transplant medications for almost two weeks now. In light of her chest pain, diarrhea, generalized malaise and weakness, she is now admitted for further evaluation and care. PAST MEDICAL HISTORY: PAD, hypertension, phantom limb pain, history of neuropathy, and history of DVT. PAST SURGICAL HISTORY: She has a history of right BKA. CURRENT MEDICATIONS: Reconciled and reviewed. ALLERGIES: None. FAMILY HISTORY: None. SOCIAL HISTORY: Negative for alcohol or drugs. The patient was previously a smoker. PHYSICAL EXAMINATION: VITAL SIGNS: Temperature 98, pulse 80, respirations 18, and blood pressure 113/60. GENERAL: The patient is a chronically ill-appearing female, in no apparent distress. She is somewhat weak. HEENT: Her mucous membranes are dry. NECK: Supple. HEART: Regular rate and rhythm. LUNGS: Clear. ABDOMEN: Soft, nontender, nondistended. EXTREMITIES: Without clubbing or cyanosis. There is a right BKA noted. LABORATORY DATA: The sodium was 139, potassium was 3.2. White count was 6. UA is currently pending. ASSESSMENT: This is an unfortunate female with history of BKA, peripheral artery disease, DVT, hypertension, admitted with complaints of diarrhea, dehydration, and chest pain. PROBLEMS: 1. Chest pain, rule out acute coronary syndrome. 2. Hypertension. 3. Kidney transplant. 4. Peripheral artery disease. 5. History of DVT, status post IVC filter. PLAN: 1. IV hydration. 2. Follow troponin. 3. Cardiology consultation. 4. Follow up urinalysis studies. 5. We will resume transplant medications. 6. Renal consultation will also be obtained. John Red M.D. DR: GORGE JOB#: [id number] CC:
[2018-03-30 16:00] VITALS: BP 135/71
--- NOTE | 2018-03-30 16:10 | Diagnostic Imaging Report ---
Indication: Cough Technique: One view of the chest Comparison: 03/29/2018 Findings: Left chest unifocal atrial pacemaker again demonstrated. Lungs and pleural spaces remain clear. Heart size is normal. Cholecystectomy clips are again demonstrated Impression: Unchanged, over one day, findings as above. No acute process
[2018-03-30] MEDS: Xarelto 15mg tab ORAL SCH (17:20)
[2018-03-30] MEDS ORDERED: Docusate 100mg cap ORAL SCH (18:00)
[2018-03-30 20:00] VITALS: BP 131/68
[2018-03-30] MEDS: Piperacillin/Tazobactam 3.375 GM in D5W 110 ML IVPB SCH (22:04)
[2018-03-31] VITALS: BP 117/66
--- NOTE | 2018-03-31 01:15 | Progress Note ---
DATE: 03/30/2018 CARDIOLOGY PROGRESS NOTE SUBJECTIVE: The patient has less diarrhea, but this has not resolved completely. Chest pain has resolved. OBJECTIVE: VITAL SIGNS: Blood pressure 135/71, pulse 72, respirations 18, and afebrile. LUNGS: Clear. CARDIAC: Regular normal S1, S2. ABDOMEN: Soft. No focal tenderness. EXTREMITIES: Right AKA. LABORATORY DATA: Potassium 3.7. Albumin 2.9. TSH 3.8. BUN 7, creatinine 1. White count 4.6, hemoglobin 10.7. Urinalysis with too numerous to count white cells. IMPRESSION: 1. Anginal syndrome, resolved. 2. Permanent pacemaker. 3. Right above-knee amputation. 4. Urinary tract infection. 5. Toxic encephalopathy. 6. Hypokalemia. 7. Moderate protein-calorie malnutrition. 8. Hx recurrent DVT with IVC filter. PLAN: 1. Replace potassium. 2. Recheck magnesium. 3. Protein supplement. 4. Empiric antimicrobials. 5. Pacemaker interrogation to follow. 6. Continue full anticoagulation. 7. Nitrates p.r.n. for chest pain. 8. Avoid aspirin to decrease bleeding risk. 9. No additional diuresis indicated at this time. Matthew Tinajero M.D. : [place] JOB#: [id number] CC: CATALINO
[2018-03-31] MEDS: HYDROcodone/Acetamin 10/325 tab ORAL PRN ×2 (02:05→06:26)
[2018-03-31 04:00] VITALS: BP 121/66
--- NOTE | 2018-03-31 05:15 | Consultation ---
DATE OF CONSULTATION: 03/30/2018 NEPHROLOGY CONSULTATION CONSULTING PHYSICIAN: Kade Cochran M.D. REFERRING PHYSICIAN: John Red M.D. REASON FOR CONSULTATION: Renal transplant status. HISTORY OF PRESENT ILLNESS: The patient is an 78-year-old lady with a renal transplant for many years after being on dialysis for a good number of years. She presents with generalized malaise, diarrhea, nausea, vague abdominal pain, and chest pain. According to notes by Dr. Red, she did not get any of her medicines including kidney transplant medicines for the last two weeks due to a social issue. She recently moved away from one of her family members. The patient has history of prior acute kidney injury possibly related to toxicity of her cyclosporine or tacrolimus in the past and she has resolved those with normal renal function. She has had recurrent UTIs and has severe peripheral vascular disease which ended up in a right below-knee amputation. PAST SURGICAL HISTORY: Kidney transplant, multiple dialysis vascular access procedures, permanent pacemaker, amputation of the right leg below the knee and subsequently above the knee, and procedures for ulcerations of the lower extremities. MEDICATIONS: She cannot give an adequate list now. See the chart and records and apparently she has been missing many medications recently. ALLERGIES: None known. HABITS: She is a nondrinker, nonsmoker. No use of drugs. REVIEW OF SYSTEMS: HEAD, EARS, EYES, NOSE, THROAT: Vision and hearing are good. ENDOCRINE: There was glucose intolerance in the past since she was on steroids, no longer taking. No thyroid disease. PULMONARY: No asthma or TB. CARDIAC: History of permanent pacemaker, hypertensive heart disease. No definite ME to my knowledge. GASTROINTESTINAL: She has had intermittent diarrhea. In the past, she has had C. difficile. She has had some intermittent nausea and vomiting. GENITOURINARY: She has had urinary incontinence and recurrent UTIs. No kidney stones. NEUROLOGIC: No definite CVA or seizures. She had metabolic encephalopathy in the past. MUSCULOSKELETAL: She has had chronic pain syndrome. PHYSICAL EXAMINATION: GENERAL: The patient is alert, lying in bed, in no acute distress. VITAL SIGNS: Normal recorded in the computer. HEAD, EARS, EYES, NOSE, THROAT: Sclerae nonicteric. Ocular motions are intact in all directions. Oral mucosa moist. NECK: No adenopathy. LUNGS: Clear. HEART: Regular rhythm. I hear no murmur. ABDOMEN: Soft without organomegaly. No focal tenderness. Kidney transplant in the right lower quadrant. No tenderness over the transplant. EXTREMITIES: Show right leg amputation. No edema or cyanosis. NEUROLOGIC: She is alert and responsive. Cranial nerves are intact. No focal findings. PERTINENT LABORATORY DATA: White count 4.5, hemoglobin 10.7, and platelets 141,000. BUN 7 and creatinine 1.0. Normal electrolytes. TSH 3.83 and albumin is 2.9, low. Urinalysis shows too numerous to count white cells, 2 to 4 red cells per high-power field, and 2+ proteinuria. There is no urine culture. IMPRESSION: 1. End-stage renal disease with well-functioning kidney transplant. 2. Pyuria, likely UTI. 3. History of missing medications recently. 4. Diarrhea, nonspecific. 5. History of peripheral vascular disease and right leg amputation. 6. Chronic pain syndrome. PLAN: We will check urine culture. She may need empiric antibiotics, but at this time, we will wait for laboratory results. Continue on transplant medicines per prior records and reassess for any complications. Kade Cochran M.D. DR: Cedrick JOB#: [id number] CC:
[2018-03-31] MEDS: Piperacillin/Tazobactam 3.375 GM in D5W 110 ML IVPB SCH (06:00)
[2018-03-31] MEDS: HydrALAZINE 25mg tab ORAL SCH ×3 (06:26→21:06)
[2018-03-31 08:00] VITALS: BP 139/76
--- NOTE | 2018-03-31 08:09 | General Progress Note ---
Assessment/Plan Problem List: (1) Urinary tract infection (2) Dehydration ICD Codes: E86.0 - Dehydration SNOMED: 57523051 (3) Diarrhea ICD Codes: R19.7 - Diarrhea SNOMED: 80131572 (4) Peripheral vascular disease ICD Codes: I73.9 - Peripheral vascular disease, unspecified SNOMED: 283500954 (5) Failure to thrive in adult ICD Codes: R62.7 - Adult failure to thrive SNOMED: 103664040 (6) Chest pain ICD Codes: R07.9 - Chest pain, unspecified SNOMED: 39899903 Status: stable, progressing Assessment/Plan follow up urine cultures abx pain rx check duplex legs check cdiff transplant rx per renal xarelto Subjective ROS Limited/Unobtainable: No Constitutional: Reports: malaise, weakness HEENT: Reports: no symptoms Cardiovascular: Reports: no symptoms Respiratory: Reports: no symptoms Gastrointestinal/Abdominal: Reports: diarrhea Genitourinary: Reports: no symptoms Neurologic/Psychiatric: Reports: no symptoms Endocrine: Reports: no symptoms Hematologic/Lymphatic: Reports: no symptoms Allergies: Coded Allergies: No Known Allergies (Verified , 05/29/09) All Systems: reviewed and negative except above Subjective c/o generalized pain. +UA noted. cultures not back yet, no chest pain no sob. +diarrhea. Objective Last 24 Hour Vital Signs Date Time Temp Pulse Resp B/P (MAP) Pulse Ox O2 Delivery O2 Flow Rate FiO2 03/31/18 06:26 121/66 03/31/18 04:00 97.7 83 18 121/66 99 Room Air 97.7 03/31/18 04:00 88 03/31/18 00:00 97.7 80 19 117/66 97 Room Air 97.7 03/31/18 00:00 80 03/30/18 22:03 127/68 03/30/18 20:00 97.8 89 20 131/68 98 Room Air 97.8 03/30/18 20:00 76 03/30/18 16:00 77 03/30/18 16:00 97.2 72 18 135/71 97 Room Air 97.2 03/30/18 14:04 137/79 03/30/18 12:00 75 03/30/18 12:00 97.3 81 18 137/79 99 Room Air 97.3 03/30/18 08:13 82 111/55 Intake and Output 03/30/18 03/31/18 19:00 07:00 Intake Total 360 ml 428 ml Output Total 500 ml Balance -140 ml 428 ml Intake Oral 360 ml 400 ml IV Total 28 ml Output Urine Total 500 ml # Voids 2 Height (Feet): 5 Height (Inches): 7.00 Weight (Pounds): 136 General Appearance: WD/WN, alert Neck: supple Cardiovascular: regular rhythm Respiratory/Chest: chest wall non-tender, lungs clear, normal breath sounds Abdomen: normal bowel sounds, non tender, soft, no organomegaly Edema: mild edema 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
--- NOTE | 2018-03-31 08:31 | Consultation ---
DATE OF CONSULTATION: 03/30/2018 CONSULTING PHYSICIAN: Tierra Escalona DPM. REFERRING PHYSICIAN: John Red M.D. REASON FOR CONSULTATION: Podiatric evaluation. HISTORY OF PRESENT ILLNESS: This is an 78-year-old female who was recently admitted to [facility] due to abdominal pain and diarrhea. She relates history of right BK amputation and multiple wounds to the left foot and surgeries. She admits positive history of previous blood clots to the right leg. She has [id number] discomfort in the left foot and ankle, and complains of swelling at the end of the day as well as discomfort to the lateral left ankle with pressure. PAST MEDICAL HISTORY: Significant for microvascular coronary artery disease, diastolic dysfunction with history of congestive heart failure, history of paroxysmal supraventricular tachycardia, history of orthostatic hypotension, hypertensive heart disease, peripheral artery disease, right below-knee amputation, thrombophlebitis of the upper extremity, renal transplant, history of pyelonephritis, recurring urinary tract infections, urinary incontinence, permanent pacemaker, metabolic syndrome with glucose intolerance. ALLERGIES: She has no known drug allergies. LOWER EXTREMITY PHYSICAL EXAMINATION: VITAL SIGNS: Stable. VASCULAR: Her dorsalis pedis and posterior tibial arteries are not palpable to the left foot, however, her foot is warm to touch and her capillary refill is less than 10 seconds. NEUROLOGIC: Her light touch sensation is intact to the left foot. MUSCULOSKELETAL: She has very limited foot and ankle range of motion, especially noted is limited eversion at the subtalar joint and metatarsal joint as well as dorsiflexion of the ankle joint on the left without pain on range of motion but with limited motion. There is tenderness to palpation as well to the medial eminence and the distal digits, and the anterior and lateral left ankle following along the peroneal tendon. Her muscle strength is 3-4/5 in all four quadrants of the left foot with slight discomfort against eversion resistance. DERMATOLOGIC: She has a healing dry eschar along the medial eminence of the left foot without surrounding edema, erythema, warmth, fluctuance, or discharge noted. She has slight general edema, nonpitting to the dorsal left foot and lateral left ankle. Again, there is no erythema, warmth, ecchymosis, or discoloration appreciated. She has thick, dystrophic, elongated nails x3 involving the third, fourth, and fifth digits of the left foot with slight hyperkeratosis to the distal digits. No other ulcerations, wounds, hyperkeratotic lesions, or abrasions appreciated to the left foot. IMPRESSION: This is a pleasant 78-year-old female with diarrhea, hypovolemia, dehydration, anginal syndrome, hypertensive heart disease, chronic diastolic congestive heart failure, renal transplant, peripheral artery disease with right below-knee amputation, metabolic syndrome with glucose intolerance, permanent pacemaker, history of previous wounds to the left foot, onychomycosis, and symptomatic intractable plantar keratomas. PLAN: I reviewed foot care guidelines at length with the patient and encouraged range of motion and strengthening exercises. Recommend physical therapy. The patient consented to and tolerated well mechanical debridement of all offending nails and lesions partial-thickness with immediate relief noted. Recommend moisturization of the left foot daily and close monitoring. Recommend decubitus precautions. Recommend follow-up in [address] Red for this consultation. Lesvia HurstPEphraim DR: Tremayne JOB#: [id number] CC: CATALINO
[2018-03-31] MEDS: cycloSPORINE 100mg cap ORAL SCH ×2 (08:37→17:08)
[2018-03-31] MEDS: MS Contin 15mg tab ORAL SCH ×2 (08:38→21:05)
[2018-03-31] MEDS: Ascorbic Acid 500mg tab ORAL SCH (08:38)
[2018-03-31] MEDS: Lyrica 50mg cap ORAL SCH ×2 (08:38→17:09)
[2018-03-31] MEDS: azaTHIOprine 50 MG TAB ORAL SCH (08:38)
[2018-03-31] MEDS: Furosemide 40mg tab ORAL SCH (08:39)
[2018-03-31 10:47] LABS: BASOPHILS % (AUTO) 2.2 % (0.0-2.0); HEMOGLOBIN 11.5 G/DL (12.0-16.0); MEAN CORPUSCULAR VOLUME 97 FL (80-99); MONOCYTES % (AUTO) 7.2 % (1.0-10.0); NEUTROPHILS % (AUTO) 41.7 % (45.0-75.0); PLATELET COUNT 144 K/UL (150-450); RED CELL DISTRIBUTION WIDTH 13.3 % (11.6-14.8)
[2018-03-31 11:26] LABS: ALANINE AMINOTRANSFERASE 11 U/L (12-78); ALBUMIN 3.4 G/DL (3.4-5.0); ALBUMIN/GLOBULIN RATIO 0.7 (1.0-2.7); ALKALINE PHOSPHATASE 82 U/L (46-116); ANION GAP 11 mmol/L (5-15); ASPARTATE AMINO TRANSFERASE 15 U/L (15-37); BILIRUBIN,TOTAL 0.7 MG/DL (0.2-1.0); BLOOD UREA NITROGEN 7 mg/dL (7-18); CALCIUM 9.3 MG/DL (8.5-10.1); CARBON DIOXIDE 25 MMOL/L (21-32); CHLORIDE 102 MMOL/L (98-107); POTASSIUM 3.6 MMOL/L (3.5-5.1); SODIUM 138 MMOL/L (136-145)
[2018-03-31 12:00] VITALS: BP 137/78
--- NOTE | 2018-03-31 14:29 | Nephrology Progress Note ---
Assessment/Plan Problem List: (1) UTI (urinary tract infection) (2) Abdominal pain (3) Diarrhea (4) Diastolic CHF with preserved left ventricular function, NYHA class 2 (5) Kidney transplanted Plan continue rx uti and transplant meds Subjective Constitutional: Reports: weakness HEENT: Reports: no symptoms Genitourinary: Reports: burning Neurologic/Psychiatric: Reports: no symptoms Objective Objective Last 24 Hour Vital Signs Date Time Temp Pulse Resp B/P (MAP) Pulse Ox O2 Delivery O2 Flow Rate FiO2 03/31/18 14:13 137/78 03/31/18 12:00 97.5 87 18 137/78 99 Room Air 97.5 03/31/18 11:28 80 03/31/18 08:39 80 139/76 03/31/18 08:00 97.8 80 18 139/76 99 Room Air 97.8 03/31/18 07:42 79 03/31/18 06:26 121/66 03/31/18 04:00 97.7 83 18 121/66 99 Room Air 97.7 03/31/18 04:00 88 03/31/18 00:00 97.7 80 19 117/66 97 Room Air 97.7 03/31/18 00:00 80 03/30/18 22:03 127/68 03/30/18 20:00 97.8 89 20 131/68 98 Room Air 97.8 03/30/18 20:00 76 03/30/18 16:00 77 03/30/18 16:00 97.2 72 18 135/71 97 Room Air 97.2 Intake and Output 03/30/18 03/31/18 19:00 07:00 Intake Total 360 ml 428 ml Output Total 500 ml Balance -140 ml 428 ml Intake Oral 360 ml 400 ml IV Total 28 ml Output Urine Total 500 ml # Voids 2 Laboratory Tests 03/31/18 09:45: White Blood Count 5.0, Red Blood Count 3.60L, Hemoglobin 11.5L, Hematocrit 35.0L , Mean Corpuscular Volume 97, Mean Corpuscular Hemoglobin 31.9H, Mean Corpuscular Hemoglobin Concent 32.8, Red Cell Distribution Width 13.3, Platelet Count 144L, Mean Platelet Volume 9.5, Neutrophils (%) (Auto) 41.7L, Lymphocytes (%) (Auto) 48.0H, Monocytes (%) (Auto) 7.2, Eosinophils (%) (Auto) 1.0, Basophils (%) (Auto) 2.2H, Sodium Level 138, Potassium Level 3.6, Chloride Level 102, Carbon Dioxide Level 25, Anion Gap 11, Blood Urea Nitrogen 7, Creatinine 1.0, Estimat Glomerular Filtration Rate , Glucose Level 103, Calcium Level 9.3, Total Bilirubin 0.7, Aspartate Amino Transf (AST/SGOT) 15, Alanine Aminotransferase (ALT/SGPT) 11L, Alkaline Phosphatase 82, Total Protein 8.1, Albumin 3.4, Globulin 4.7, Albumin/Globulin Ratio 0.7L, Cyclosporine (by HPLC) [ Pending] Height (Feet): 5 Height (Inches): 7.00 Weight (Pounds): 136 General Appearance: no apparent distress, alert EENT: normal ENT inspection Neck: normal alignment Cardiovascular: normal rate, regular rhythm Respiratory/Chest: lungs clear Abdomen: non tender, soft Extremities: other - rle amputee 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
[2018-03-31 16:00] VITALS: BP 141/82
[2018-03-31] MEDS ORDERED: Morphine Sulfate 2mg/ml Inj IVP PRN (16:00)
[2018-03-31] MEDS: Xarelto 15mg tab ORAL SCH (17:07)
[2018-03-31 19:36] VITALS: BP 126/65
[2018-04-01 00:40] VITALS: BP 133/71
--- NOTE | 2018-04-01 03:31 | Progress Note ---
DATE: 03/31/2018 CARDIOLOGY PROGRESS NOTE SUBJECTIVE: The patient is on IV antibiotics for urinary infection. Cultures are pending. The patient is on anticoagulation for history of DVT with ____ duplex pending. The patient still has generalized pain and diarrhea. No nausea or vomiting. Appetite is fair. She still feels weak and is quite somnolent during the day. Pacemaker was interrogated today functioning appropriately with adequate battery life. OBJECTIVE: VITAL SIGNS: Blood pressure 121/66, pulse 83, respiratory rate 18, and afebrile. NECK: Supple. LUNGS: Clear. CARDIAC: Regular rhythm and rate. Normal S1 and S2 with a fourth heart sound. ABDOMEN: Soft, mild diffuse tenderness. EXTREMITIES: Right AKA stump. IMPRESSION: 1. Urinary tract infection. 2. Abdominal pain. 3. Renal transplant. 4. Acute on chronic kidney disease. 5. Hypertensive heart disease. 6. Peripheral artery disease. 7. Right lower extremity DVT. 8. History of DVT, on anticoagulation. PLAN: 1. Monitor volume status, renal parameters. 2. Await final cultures. 3. Check cyclosporine levels. 4. Continue full anticoagulation with rivaroxaban at renal dosing. 5. Await repeat venous duplex study. Matthew Tinajero M.D. DR: RUDDY JOB#: [id number] CC: CATALINO
[2018-04-01] MEDS: HydrALAZINE 25mg tab ORAL SCH ×3 (06:09→21:30)
[2018-04-01 08:00] VITALS: BP 118/68
[2018-04-01] MEDS: Furosemide 40mg tab ORAL SCH (08:12)
[2018-04-01] MEDS: cycloSPORINE 100mg cap ORAL SCH ×2 (08:13→17:58)
[2018-04-01] MEDS: Ascorbic Acid 500mg tab ORAL SCH (08:14)
[2018-04-01] MEDS: Lyrica 50mg cap ORAL SCH ×2 (08:15→17:58)
[2018-04-01] MEDS: MS Contin 15mg tab ORAL SCH ×2 (08:15→20:31)
--- NOTE | 2018-04-01 08:16 | General Progress Note ---
Assessment/Plan Problem List: (1) Urinary tract infection (2) Dehydration ICD Codes: E86.0 - Dehydration SNOMED: 23732685 (3) Diarrhea ICD Codes: R19.7 - Diarrhea SNOMED: 00352885 (4) Peripheral vascular disease ICD Codes: I73.9 - Peripheral vascular disease, unspecified SNOMED: 673379693 (5) Failure to thrive in adult ICD Codes: R62.7 - Adult failure to thrive SNOMED: 523490706 (6) Chest pain ICD Codes: R07.9 - Chest pain, unspecified SNOMED: 86955659 Status: stable, progressing Assessment/Plan follow up urine cultures abx pain rx check cdiff transplant rx per renal xarelto? Subjective ROS Limited/Unobtainable: No Constitutional: Reports: malaise, weakness HEENT: Reports: no symptoms Cardiovascular: Reports: no symptoms Respiratory: Reports: no symptoms Gastrointestinal/Abdominal: Reports: no symptoms Genitourinary: Reports: no symptoms Neurologic/Psychiatric: Reports: pre-existing deficit Endocrine: Reports: no symptoms Hematologic/Lymphatic: Reports: no symptoms Allergies: Coded Allergies: No Known Allergies (Verified , 05/29/09) All Systems: reviewed and negative except above Subjective c/o generalized pain. +UA noted. cultures not back yet, no chest pain no sob. Objective Last 24 Hour Vital Signs Date Time Temp Pulse Resp B/P (MAP) Pulse Ox O2 Delivery O2 Flow Rate FiO2 04/01/18 06:09 133/71 04/01/18 00:40 97.5 78 20 133/71 94 Room Air 97.5 03/31/18 21:06 126/65 03/31/18 19:36 97.9 89 20 126/65 98 Room Air 97.9 03/31/18 16:00 97.3 84 18 141/82 99 Room Air 97.3 03/31/18 14:13 137/78 03/31/18 12:00 97.5 87 18 137/78 99 Room Air 97.5 03/31/18 11:28 80 03/31/18 08:39 80 139/76 Intake and Output 03/31/18 04/01/18 19:00 07:00 Intake Total 480 ml Output Total 700 ml Balance -220 ml Intake Oral 480 ml Output Urine Total 700 ml Laboratory Tests 03/31/18 09:45: White Blood Count 5.0, Red Blood Count 3.60L, Hemoglobin 11.5L, Hematocrit 35.0L , Mean Corpuscular Volume 97, Mean Corpuscular Hemoglobin 31.9H, Mean Corpuscular Hemoglobin Concent 32.8, Red Cell Distribution Width 13.3, Platelet Count 144L, Mean Platelet Volume 9.5, Neutrophils (%) (Auto) 41.7L, Lymphocytes (%) (Auto) 48.0H, Monocytes (%) (Auto) 7.2, Eosinophils (%) (Auto) 1.0, Basophils (%) (Auto) 2.2H, Sodium Level 138, Potassium Level 3.6, Chloride Level 102, Carbon Dioxide Level 25, Anion Gap 11, Blood Urea Nitrogen 7, Creatinine 1.0, Estimat Glomerular Filtration Rate , Glucose Level 103, Calcium Level 9.3, Total Bilirubin 0.7, Aspartate Amino Transf (AST/SGOT) 15, Alanine Aminotransferase (ALT/SGPT) 11L, Alkaline Phosphatase 82, Total Protein 8.1, Albumin 3.4, Globulin 4.7, Albumin/Globulin Ratio 0.7L, Cyclosporine (by HPLC) [ Pending] Height (Feet): 5 Height (Inches): 7.00 Weight (Pounds): 135 Objective General Appearance: WD/WN, alert Neck: supple Cardiovascular: regular rhythm Respiratory/Chest: chest wall non-tender, lungs clear, normal breath sounds Abdomen: normal bowel sounds, non tender, soft, no organomegaly Edema: mild edema 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
[2018-04-01] MEDS: azaTHIOprine 50 MG TAB ORAL SCH (08:23)
[2018-04-01 12:00] VITALS: BP 133/69
[2018-04-01] MEDS: HYDROcodone/Acetamin 10/325 tab ORAL PRN (14:24)
--- NOTE | 2018-04-01 14:26 | Nephrology Progress Note ---
Assessment/Plan Problem List: (1) UTI (urinary tract infection) (2) Abdominal pain (3) Diarrhea (4) Diastolic CHF with preserved left ventricular function, NYHA class 2 (5) Kidney transplanted Plan continue rx uti e coli and transplant meds Subjective Constitutional: Reports: weakness HEENT: Reports: no symptoms Genitourinary: Reports: incontinence Neurologic/Psychiatric: Reports: no symptoms Objective Objective Last 24 Hour Vital Signs Date Time Temp Pulse Resp B/P (MAP) Pulse Ox O2 Delivery O2 Flow Rate FiO2 04/01/18 14:15 133/69 04/01/18 12:00 98.1 93 21 133/69 98 Room Air 98.1 04/01/18 08:22 92 118/68 04/01/18 08:00 98.0 92 20 118/68 97 Room Air 98.0 04/01/18 06:09 133/71 04/01/18 00:40 97.5 78 20 133/71 94 Room Air 97.5 03/31/18 21:06 126/65 03/31/18 19:36 97.9 89 20 126/65 98 Room Air 97.9 03/31/18 16:00 97.3 84 18 141/82 99 Room Air 97.3 Intake and Output 03/31/18 04/01/18 19:00 07:00 Intake Total 480 ml Output Total 700 ml Balance -220 ml Intake Oral 480 ml Output Urine Total 700 ml Height (Feet): 5 Height (Inches): 7.00 Weight (Pounds): 135 General Appearance: no apparent distress EENT: normal ENT inspection Neck: normal alignment Cardiovascular: normal rate Respiratory/Chest: lungs clear Abdomen: non tender, soft Extremities: other - r bka 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
[2018-04-01] MEDS ORDERED: Lomotil 2.5mg tab ORAL PRN (14:30)
[2018-04-01 16:00] VITALS: BP 120/70
[2018-04-01] MEDS: Xarelto 15mg tab ORAL SCH (17:58)
[2018-04-01 20:00] VITALS: BP 133/66
[2018-04-01] MEDS ORDERED: NORVASC5 MG ORAL (21:20)
[2018-04-01] MEDS ORDERED: IMURAN50 MG ORAL (21:20)
[2018-04-01] MEDS ORDERED: HYDROcodone/Acetamin 10/325 ORAL (21:20)
[2018-04-01] MEDS ORDERED: FUROSEMIDE40 MG ORAL (21:20)
[2018-04-01] MEDS ORDERED: LYRICA50 MG ORAL (21:20)
[2018-04-01] MEDS ORDERED: PROTONIX40 MG ORAL (21:20)
[2018-04-01] MEDS ORDERED: HYDRALAZINE HCL25 M1 ORAL (21:20)
[2018-04-01] MEDS ORDERED: CYCLOSPORINE ORAL (21:20)
[2018-04-01] MEDS ORDERED: FLORINEF0.1 MG ORAL (21:20)
[2018-04-01] MEDS ORDERED: XARELTO15 MG ORAL (21:20)
[2018-04-01] MEDS ORDERED: MS CONTIN15 MG ORAL (21:20)
[2018-04-01] MEDS ORDERED: Ertapenem 1 GM in NS 55 ML IVPB ONE (22:30)
--- NOTE | 2018-04-01 23:01 | Progress Note ---
DATE: 04/01/2018 CARDIOLOGY PROGRESS NOTE SUBJECTIVE: No chest pain. No shortness of breath. Generalized body aches noted. She is still on IV antibiotics. Final culture is pending. Pacemaker was interrogated yesterday. PHYSICAL EXAMINATION: VITAL SIGNS: Blood pressure 133/71, pulse 78, respirations 20, and afebrile. LUNGS: Tenderness over the sternum. Lungs clear. CARDIAC: Regular rhythm and rate. Normal S1, S2 with a fourth heart sound. Right AKA. ABDOMEN: Benign. EXTREMITIES: No edema. IMPRESSION: 1. Metabolic and toxic encephalopathies. 2. Renal transplant. 3. Urinary tract infection with sepsis. 4. Permanent pacemaker. 5. Anginal syndrome. 6. Feq-ztlwbwz-sotbltihi diabetes mellitus. PLAN: 1. Antimicrobials. 2. Await final cultures. 3. Titrate antihypertensive regimen based on clinical parameters. 4. Continue anti-platelet therapy. Matthew Tinajero M.D. DR: LALY JOB#: [id number] CC:
[2018-04-02] VITALS: BP 122/62
[2018-04-02 04:00] VITALS: BP 123/57
[2018-04-02] MEDS: HydrALAZINE 25mg tab ORAL SCH ×3 (05:39→22:00)
[2018-04-02 07:13] LABS: ANION GAP 16 mmol/L (5-15); BLOOD UREA NITROGEN 20 mg/dL (7-18); CALCIUM 9.3 MG/DL (8.5-10.1); CARBON DIOXIDE 22 MMOL/L (21-32); CHLORIDE 100 MMOL/L (98-107); CREATININE 1.2 MG/DL (0.55-1.30); POTASSIUM 3.5 MMOL/L (3.5-5.1); SODIUM 138 MMOL/L (136-145)
--- NOTE | 2018-04-02 07:37 | Nephrology Progress Note ---
Assessment/Plan Problem List: (1) UTI (urinary tract infection) (2) Abdominal pain (3) Diarrhea (4) Diastolic CHF with preserved left ventricular function, NYHA class 2 (5) Kidney transplanted Plan continue rx uti e coli no iv access, if no picc would give gentamycin 1-2 doses , avoid macrodantin as ckd and transplant meds Subjective Constitutional: Reports: weakness HEENT: Reports: no symptoms Genitourinary: Reports: incontinence Neurologic/Psychiatric: Reports: no symptoms Objective Objective Last 24 Hour Vital Signs Date Time Temp Pulse Resp B/P (MAP) Pulse Ox O2 Delivery O2 Flow Rate FiO2 04/02/18 05:39 126/62 04/02/18 04:00 98.0 82 17 123/57 99 Room Air 98.0 04/02/18 00:00 98.2 91 18 122/62 99 Room Air 98.2 04/01/18 21:30 133/66 04/01/18 20:00 98.1 88 18 133/66 97 Room Air 98.1 04/01/18 16:00 98.0 76 19 120/70 98 Room Air 98.0 04/01/18 14:15 133/69 04/01/18 12:00 98.1 93 21 133/69 98 Room Air 98.1 04/01/18 08:22 92 118/68 04/01/18 08:00 98.0 92 20 118/68 97 Room Air 98.0 Intake and Output 04/01/18 04/02/18 19:00 07:00 Intake Total 240 ml 120 ml Balance 240 ml 120 ml Intake Oral 240 ml 120 ml # Voids 4 Laboratory Tests 04/02/18 06:15: Sodium Level 138, Potassium Level 3.5, Chloride Level 100, Carbon Dioxide Level 22, Anion Gap 16H, Blood Urea Nitrogen 20H, Creatinine 1.2, Estimat Glomerular Filtration Rate , Glucose Level 64L, Calcium Level 9.3 Height (Feet): 5 Height (Inches): 7.00 Weight (Pounds): 132 General Appearance: no apparent distress, alert EENT: normal ENT inspection Neck: normal alignment Cardiovascular: normal rate Respiratory/Chest: lungs clear Abdomen: non tender Extremities: other - r bka, no edema 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
[2018-04-02 08:00] VITALS: BP 118/55
--- NOTE | 2018-04-02 08:39 | General Progress Note ---
Assessment/Plan Problem List: (1) Urinary tract infection (2) Dehydration ICD Codes: E86.0 - Dehydration SNOMED: 31231628 (3) Diarrhea ICD Codes: R19.7 - Diarrhea SNOMED: 70531845 (4) Peripheral vascular disease ICD Codes: I73.9 - Peripheral vascular disease, unspecified SNOMED: 333634516 (5) Failure to thrive in adult ICD Codes: R62.7 - Adult failure to thrive SNOMED: 216842944 (6) Chest pain ICD Codes: R07.9 - Chest pain, unspecified SNOMED: 38456927 Status: stable, progressing Assessment/Plan ID consult for esbl uti abx pain rx transplant rx per renal xarelto? needs snf Subjective ROS Limited/Unobtainable: No Constitutional: Reports: malaise HEENT: Reports: no symptoms Cardiovascular: Reports: no symptoms Respiratory: Reports: no symptoms Gastrointestinal/Abdominal: Reports: no symptoms Genitourinary: Reports: no symptoms Neurologic/Psychiatric: Reports: pre-existing deficit Endocrine: Reports: no symptoms Hematologic/Lymphatic: Reports: anemia Allergies: Coded Allergies: No Known Allergies (Verified , 05/29/09) All Systems: reviewed and negative except above Subjective c/o generalized pain. +UA noted. +esbl uti, no chest pain no sob. Objective Last 24 Hour Vital Signs Date Time Temp Pulse Resp B/P (MAP) Pulse Ox O2 Delivery O2 Flow Rate FiO2 04/02/18 05:39 126/62 04/02/18 04:00 98.0 82 17 123/57 99 Room Air 98.0 04/02/18 00:00 98.2 91 18 122/62 99 Room Air 98.2 04/01/18 21:30 133/66 04/01/18 20:00 98.1 88 18 133/66 97 Room Air 98.1 04/01/18 16:00 98.0 76 19 120/70 98 Room Air 98.0 04/01/18 14:15 133/69 04/01/18 12:00 98.1 93 21 133/69 98 Room Air 98.1 Intake and Output 04/01/18 04/02/18 19:00 07:00 Intake Total 240 ml 120 ml Balance 240 ml 120 ml Intake Oral 240 ml 120 ml # Voids 4 Laboratory Tests 04/02/18 06:15: Sodium Level 138, Potassium Level 3.5, Chloride Level 100, Carbon Dioxide Level 22, Anion Gap 16H, Blood Urea Nitrogen 20H, Creatinine 1.2, Estimat Glomerular Filtration Rate , Glucose Level 64L, Calcium Level 9.3 Height (Feet): 5 Height (Inches): 7.00 Weight (Pounds): 132 Objective General Appearance: WD/WN, alert Neck: supple Cardiovascular: regular rhythm Respiratory/Chest: chest wall non-tender, lungs clear, normal breath sounds Abdomen: normal bowel sounds, non tender, soft, no organomegaly Edema: mild edema Neurologic: 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
[2018-04-02] MEDS: Ascorbic Acid 500mg tab ORAL SCH (08:47)
[2018-04-02] MEDS: cycloSPORINE 100mg cap ORAL SCH ×2 (08:47→17:05)
[2018-04-02] MEDS: Lyrica 50mg cap ORAL SCH ×2 (08:48→17:06)
[2018-04-02] MEDS: MS Contin 15mg tab ORAL SCH ×2 (08:48→21:13)
[2018-04-02] MEDS: Furosemide 40mg tab ORAL SCH (08:48)
[2018-04-02] MEDS: Artificial Tears 1.4% Op Soln BOTH EYES PRN (08:50)
[2018-04-02] MEDS: azaTHIOprine 50 MG TAB ORAL SCH (08:50)
[2018-04-02] MEDS: HYDROcodone/Acetamin 10/325 tab ORAL PRN (11:16)
[2018-04-02 12:00] VITALS: BP 114/49
[2018-04-02 16:00] VITALS: BP 118/50
[2018-04-02] MEDS ORDERED: Meropenem 1 GM in NS 110 ML IVPB SCH (16:00)
[2018-04-02] MEDS: Xarelto 15mg tab ORAL SCH (17:05)
[2018-04-02 20:00] VITALS: BP 113/55
--- NOTE | 2018-04-02 21:16 | Consultation ---
DATE OF CONSULTATION: 04/02/2018 INFECTIOUS DISEASE CONSULTATION This consult is for coverage of Dr. Bob. CONSULTING PHYSICIAN: Lucian Maguire M.D. PRIMARY ATTENDING PHYSICIAN: John Red M.D. REASON FOR CONSULT: Urinary tract infection. HISTORY OF PRESENT ILLNESS: The patient is an 78-year-old female, admitted on 03/29/2018 complaining of chest pain, diarrhea, and weakness, was found to have dehydration. The patient has history of renal transplant and has history of urinary tract infection. Urine culture is growing ESBL E. coli. PAST MEDICAL HISTORY: Significant for hypertension, peripheral vascular disease, status post right below-knee amputation, status post kidney transplant, status post IVC filter, diastolic congestive heart failure, and permanent pacemaker. ALLERGIES: No known drug allergies. MEDICATIONS: Getting Zofran, , amlodipine, vitamin C, azathioprine, Florinef, Lasix, Protonix, hydralazine, morphine, cyclosporine, Lyrica, [place], Xarelto, and artificial tears. SOCIAL HISTORY: No history of alcohol, drug abuse, or smoking. REVIEW OF SYSTEMS: Does not feel good. Generalized pain, nausea, vomiting. Has no diarrhea. No coughing. PHYSICAL EXAMINATION: VITAL SIGNS: Temperature 98, pulse 91, and blood pressure 140/49. GENERAL APPEARANCE: No acute distress. Seems to be thin. HEAD AND NECK: [place] conjunctiva. HEART: S1, S2. Regular. LUNGS: Clear. ABDOMEN: Flat, soft. Mildly tender near midline. EXTREMITIES: She has no edema. Has right below-knee amputation. NEUROLOGIC: She is awake, alert, and oriented x3. LABORATORY DATA: Sodium 138, potassium 3.5, chloride 100, bicarbonate 22, BUN 20, and creatinine 1.2. WBC 5, hemoglobin 11, hematocrit 35, and platelets 144. Urine culture grew ESBL E. coli. MRSA screening is positive. IMPRESSION: Complicated urinary tract infection in a patient who has history of renal transplant, is on immunosuppressive agents, has hypertension, peripheral vascular disease, and diastolic congestive heart failure. RECOMMENDATIONS: We will start meropenem. We will try to convince the patient for midline placement. If the patient does not IV access, may consider p.o. nitrofurantoin or IM gentamicin. At the end of my exam, I thank, Dr. Red, for involving me in the care of this patient. Lucian Maguire M.D. DR: DAYNA JOB#: [id number] CC: [place]
[2018-04-03] VITALS: BP 109/53
--- NOTE | 2018-04-03 01:15 | Progress Note ---
DATE: 04/02/2018 CARDIOLOGY PROGRESS NOTE SUBJECTIVE: Ertapenem was ordered by me last night, following culture results that were obtained for ESBL E. coli urinary tract infection. The patient is now being seen by Infectious Disease [facility] consultant. Abdominal pain is improved. Generalized body pain persists. Weakness persists. No shortness of breath or chest pain. OBJECTIVE: VITAL SIGNS: Blood pressure 123/57, pulse 82, respiratory rate 17 and afebrile. LUNGS: Clear. CARDIAC: Regular. Normal S1 and S2 with a fourth heart sound. ABDOMEN: Soft. EXTREMITIES: No edema. Right stump clean. IMPRESSION: 1. History of DVT, now resolved. 2. Permanent pacemaker. 3. Multi-drug resistant urinary tract infection. 4. Renal transplant. 5. Chronic kidney disease. PLAN: 1. Antimicrobials. 2. Continue full anticoagulation as increased risk for recurrent thrombosis. 3. Maintain current cardiovascular regimen without change. 4. Observe for bleeding complications. 5. Symptom-guided pain control. Matthew Tinajero M.D. DR: VIJAY JOB#: [id number] CC:
[2018-04-03 04:00] VITALS: BP 120/61
[2018-04-03] MEDS: HydrALAZINE 25mg tab ORAL SCH ×3 (05:47→21:11)
[2018-04-03 07:20] LABS: ANION GAP 19 mmol/L (5-15); BLOOD UREA NITROGEN 36 mg/dL (7-18); CALCIUM 9.4 MG/DL (8.5-10.1); CARBON DIOXIDE 20 MMOL/L (21-32); CHLORIDE 98 MMOL/L (98-107); CREATININE 1.7 MG/DL (0.55-1.30); POTASSIUM 3.6 MMOL/L (3.5-5.1); SODIUM 136 MMOL/L (136-145)
[2018-04-03 08:00] VITALS: BP 114/54
[2018-04-03] MEDS: azaTHIOprine 50 MG TAB ORAL SCH (09:10)
[2018-04-03] MEDS: MS Contin 15mg tab ORAL SCH ×2 (09:11→21:10)
[2018-04-03] MEDS: Lyrica 50mg cap ORAL SCH ×2 (09:11→17:48)
[2018-04-03] MEDS: Ascorbic Acid 500mg tab ORAL SCH (09:12)
[2018-04-03] MEDS: cycloSPORINE 100mg cap ORAL SCH ×2 (09:12→17:48)
[2018-04-03] MEDS: Furosemide 40mg tab ORAL SCH (09:12)
[2018-04-03] MEDS: Artificial Tears 1.4% Op Soln BOTH EYES PRN (09:17)
[2018-04-03] MEDS: HYDROcodone/Acetamin 10/325 tab ORAL PRN ×2 (11:26→15:35)
--- NOTE | 2018-04-03 11:55 | Infectious Diseases Prog Note ---
Assessment/Plan Assessment/Plan antibiotics : po macrobid A 1. e.coli UTI 2. s/p renal transplant 3. renal insufficiency 4. hypertension 5. CHF P 1. continue po macrobid as patient refusing iv 2. will follow up cultures Subjective Constitutional: Denies: fever, chills Respiratory: Denies: shortness of breath, dry cough Gastrointestinal/Abdominal: Reports: nausea, vomiting Musculoskeletal: Reports: pain Allergies: Coded Allergies: No Known Allergies (Verified , 05/29/09) Objective Vital Signs Last 24 Hour Vital Signs Date Time Temp Pulse Resp B/P (MAP) Pulse Ox O2 Delivery O2 Flow Rate FiO2 04/03/18 09:12 80 114/54 04/03/18 08:00 97.9 80 18 114/54 98 Room Air 97.9 04/03/18 05:47 120/61 04/03/18 04:00 98.1 89 20 120/61 98 Room Air 98.1 04/03/18 00:00 98.2 91 18 109/53 97 Room Air 98.2 04/02/18 22:00 108/56 04/02/18 20:00 98.5 92 20 113/55 97 Room Air 98.5 04/02/18 16:00 97.5 92 20 118/50 97 97.5 04/02/18 16:00 Room Air 04/02/18 14:00 114/49 04/02/18 12:15 98.0 04/02/18 12:00 98.0 91 20 114/49 98 98.0 04/02/18 12:00 Room Air Height (Feet): 5 Height (Inches): 7.00 Weight (Pounds): 130 Respiratory/Chest: lungs clear Cardiovascular: normal rate, regular rhythm, no gallop/murmur Abdomen: soft, non tender Extremities: no edema, other - right stump clean Laboratory Tests Test 04/03/18 05:25 Sodium Level 136 MMOL/L (136-145) Potassium Level 3.6 MMOL/L (3.5-5.1) Chloride Level 98 MMOL/L (98-107) Carbon Dioxide Level 20 MMOL/L (21-32) L Anion Gap 19 mmol/L (5-15) H Blood Urea Nitrogen 36 mg/dL (7-18) H Creatinine 1.7 MG/DL (0.55-1.30) H Estimat Glomerular Filtration Rate mL/min (>60) Glucose Level 65 MG/DL (74-106) L Calcium Level 9.4 MG/DL (8.5-10.1) Current Medications Medications (Trade) Dose Ordered Sig/Toya Route PRN Reason Start Time Stop Time Status Last Admin Dose Admin Acetaminophen/ Hydrocodone Bitart ([place] 10/325) 1 tab Q4H PRN ORAL Severe Pain (Pain Scale 7-10) 03/31/18 16:45 04/05/18 12:44 04/03/18 11:26 Amlodipine Besylate (Norvasc) 5 mg DAILY ORAL 04/01/18 09:00 04/29/18 08:59 04/03/18 09:12 Artificial Tears (Akwa-Tears) 1 drop TIDPRN PRN BOTH EYES Dry Eyes 03/31/18 16:00 04/30/18 15:59 04/03/18 09:17 Ascorbic Acid (Vitamin C) 500 mg DAILY ORAL 04/01/18 09:00 04/29/18 08:59 04/03/18 09:12 Azathioprine (Imuran) 75 mg DAILY ORAL 04/01/18 09:00 04/29/18 08:59 04/03/18 09:10 Cyclosporine (SandIMMUNE) 100 mg BID ORAL 03/31/18 18:00 04/28/18 17:59 04/03/18 09:12 Diphenoxylate HCl/ Atropine (Lomotil) 2.5 mg TIDPRN PRN ORAL Diarrhea 04/01/18 14:30 04/28/18 14:29 Fludrocortisone Acetate (Florinef) 0.1 mg DAILY ORAL 04/01/18 09:00 04/29/18 08:59 04/03/18 09:12 Furosemide (Lasix) 40 mg DAILY ORAL 04/01/18 09:00 04/29/18 08:59 04/03/18 09:12 Hydralazine HCl (Apresoline) 25 mg EVERY 8 HOURS ORAL 03/31/18 22:00 04/28/18 21:59 04/03/18 05:47 Morphine Sulfate (MS Contin) 15 mg EVERY 12 HOURS ORAL 03/31/18 21:00 04/05/18 20:59 04/03/18 09:11 Morphine Sulfate (Morphine Sulfate) 0.5 mg Q4H PRN IVP Moderate Pain (Pain Scale 4-6) 03/31/18 16:00 04/05/18 15:59 Nitrofurantoin (Macrobid) 100 mg BID ORAL 04/02/18 18:00 04/09/18 17:59 04/03/18 09:12 Ondansetron HCl (Zofran ODT) 4 mg Q6H PRN ORAL Nausea & Vomiting 04/02/18 11:30 05/02/18 11:29 04/03/18 09:16 Pantoprazole (Protonix) 40 mg DAILY ORAL 04/01/18 09:00 04/29/18 08:59 04/03/18 09:11 Pregabalin (Lyrica) 100 mg BID ORAL 03/31/18 18:00 04/28/18 17:59 04/03/18 09:11 Rivaroxaban (Xarelto) 15 mg QPM ORAL 03/31/18 16:30 04/28/18 16:29 04/02/18 17:05 JARRED RUEDA Apr 03, 2018 11:55
[2018-04-03 12:00] VITALS: BP 123/60
[2018-04-03 16:11] VITALS: BP 142/80
[2018-04-03] MEDS: Xarelto 15mg tab ORAL SCH (17:01)
--- NOTE | 2018-04-03 18:57 | Nephrology Progress Note ---
Assessment/Plan Assessment 1) ESRD s/p Kidney TXP 2) ESBL uti with sepsia 3) YEHUDA Plan: Will get transplant kidney US IV Invanz Subjective Subjective She is having pain on the transplanted kidney, urine Cx + for ESBL E. Coli Objective Objective Last 24 Hour Vital Signs Date Time Temp Pulse Resp B/P (MAP) Pulse Ox O2 Delivery O2 Flow Rate FiO2 04/03/18 16:11 97.7 87 18 142/80 99 Room Air 97.7 04/03/18 14:54 123/60 04/03/18 12:00 97.3 85 18 123/60 99 Room Air 97.3 04/03/18 09:12 80 114/54 04/03/18 08:00 97.9 80 18 114/54 98 Room Air 97.9 04/03/18 05:47 120/61 04/03/18 04:00 98.1 89 20 120/61 98 Room Air 98.1 04/03/18 00:00 98.2 91 18 109/53 97 Room Air 98.2 04/02/18 22:00 108/56 04/02/18 20:00 98.5 92 20 113/55 97 Room Air 98.5 Intake and Output 04/02/18 04/03/18 19:00 07:00 Intake Total 60 ml Balance 60 ml Intake Oral 60 ml # Voids 1 2 Laboratory Tests 04/03/18 05:25: Sodium Level 136, Potassium Level 3.6, Chloride Level 98, Carbon Dioxide Level 20L, Anion Gap 19H, Blood Urea Nitrogen 36H, Creatinine 1.7H, Estimat Glomerular Filtration Rate , Glucose Level 65L, Calcium Level 9.4 Height (Feet): 5 Height (Inches): 7.00 Weight (Pounds): 130 General Appearance: WD/WN, no apparent distress EENT: PERRL/EOMI Neck: non-tender, normal alignment, supple Cardiovascular: normal rate, regular rhythm, no JVD Respiratory/Chest: lungs clear Abdomen: normal bowel sounds, non tender, other - R inguinal kidney is tender Extremities: normal range of motion, non-tender 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
--- NOTE | 2018-04-03 19:00 | General Progress Note ---
Assessment/Plan Problem List: (1) Urinary tract infection (2) Dehydration ICD Codes: E86.0 - Dehydration SNOMED: 59446943 (3) Diarrhea ICD Codes: R19.7 - Diarrhea SNOMED: 12940298 (4) Peripheral vascular disease ICD Codes: I73.9 - Peripheral vascular disease, unspecified SNOMED: 562816184 (5) Failure to thrive in adult ICD Codes: R62.7 - Adult failure to thrive SNOMED: 187156542 (6) Chest pain ICD Codes: R07.9 - Chest pain, unspecified SNOMED: 42143230 Status: stable, progressing Assessment/Plan ID consult for esbl uti abx pain rx transplant rx per renal xarelto? dc lasix repeat labs needs snf Subjective ROS Limited/Unobtainable: No Constitutional: Reports: malaise, weakness HEENT: Reports: no symptoms Cardiovascular: Reports: no symptoms Respiratory: Reports: no symptoms Gastrointestinal/Abdominal: Reports: no symptoms Genitourinary: Reports: no symptoms Neurologic/Psychiatric: Reports: no symptoms Endocrine: Reports: no symptoms Hematologic/Lymphatic: Reports: no symptoms Allergies: Coded Allergies: No Known Allergies (Verified , 05/29/09) All Systems: reviewed and negative except above Subjective c/o generalized pain. +UA noted. +esbl uti, no chest pain no sob. renalfxn worse. on lasix. no edema Objective Last 24 Hour Vital Signs Date Time Temp Pulse Resp B/P (MAP) Pulse Ox O2 Delivery O2 Flow Rate FiO2 04/03/18 16:11 97.7 87 18 142/80 99 Room Air 97.7 04/03/18 14:54 123/60 04/03/18 12:00 97.3 85 18 123/60 99 Room Air 97.3 04/03/18 09:12 80 114/54 04/03/18 08:00 97.9 80 18 114/54 98 Room Air 97.9 04/03/18 05:47 120/61 04/03/18 04:00 98.1 89 20 120/61 98 Room Air 98.1 04/03/18 00:00 98.2 91 18 109/53 97 Room Air 98.2 04/02/18 22:00 108/56 04/02/18 20:00 98.5 92 20 113/55 97 Room Air 98.5 Intake and Output 04/02/18 04/03/18 19:00 07:00 Intake Total 60 ml Balance 60 ml Intake Oral 60 ml # Voids 1 2 Laboratory Tests 04/03/18 05:25: Sodium Level 136, Potassium Level 3.6, Chloride Level 98, Carbon Dioxide Level 20L, Anion Gap 19H, Blood Urea Nitrogen 36H, Creatinine 1.7H, Estimat Glomerular Filtration Rate , Glucose Level 65L, Calcium Level 9.4 Height (Feet): 5 Height (Inches): 7.00 Weight (Pounds): 130 Objective General Appearance: WD/WN, alert Neck: supple Cardiovascular: regular rhythm Respiratory/Chest: chest wall non-tender, lungs clear, normal breath sounds Abdomen: normal bowel sounds, non tender, soft, no organomegaly Edema: mild edema 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
[2018-04-03 20:00] VITALS: BP 127/70
[2018-04-04] VITALS (7 sets, daily range): BP systolic 110–132; BP diastolic 51–70
--- NOTE | 2018-04-04 02:15 | Progress Note ---
DATE: 04/03/2018 CARDIOLOGY PROGRESS NOTE SUBJECTIVE: The patient remains on IV antibiotics for multidrug resistant urinary infection. The patient's renal function is deteriorating. She has been on diuretics. The patient has diffuse pain. No shortness of breath. OBJECTIVE: VITAL SIGNS: Blood pressure 111/51, pulse 77, respiratory rate 20, afebrile, and oxygen saturation on room air 98%. LUNGS: Bilateral breath sounds. HEART: Regular rhythm and rate. Normal S1, S2. Fourth heart sound. ABDOMEN: Soft, no edema. EXTREMITIES: Stump dry. IMPRESSION: 1. Multi-drug resistant urinary tract infection. 2. Acute on chronic renal failure. 3. Renal transplant. 4. Permanent pacemaker. 5. Hypertensive heart disease. 6. Peripheral artery disease status post anti-history of right lower extremity amputation. PLAN: 1. Hold diuretics. 2. Continue antimicrobials. 3. Consider hydration. 4. Follow up cyclosporine levels. 5. Maintain current antihypertensive regimen. Matthew Tinajero M.D. DR: RUDDY JOB#: [id number] CC:
[2018-04-04] MEDS: HydrALAZINE 25mg tab ORAL SCH ×3 (05:56→21:42)
[2018-04-04] MEDS: HYDROcodone/Acetamin 10/325 tab ORAL PRN ×2 (05:58→13:57)
[2018-04-04] MEDS ORDERED: Ertapenem (INVanz) 1gm Inj IM SCH ×3 (08:00→11:00)
[2018-04-04] MEDS: Lyrica 50mg cap ORAL SCH ×2 (08:34→17:54)
[2018-04-04] MEDS: azaTHIOprine 50 MG TAB ORAL SCH (08:34)
[2018-04-04] MEDS: cycloSPORINE 100mg cap ORAL SCH ×2 (08:34→17:54)
[2018-04-04] MEDS: Ascorbic Acid 500mg tab ORAL SCH (08:35)
[2018-04-04] MEDS: MS Contin 15mg tab ORAL SCH ×2 (08:35→21:42)
[2018-04-04] MEDS ORDERED: LIDOCAINE 1% INJ SCH (11:00)
--- NOTE | 2018-04-04 11:17 | General Progress Note ---
Assessment/Plan Problem List: (1) Urinary tract infection (2) Dehydration ICD Codes: E86.0 - Dehydration SNOMED: 30623748 (3) Diarrhea ICD Codes: R19.7 - Diarrhea SNOMED: 04846550 (4) Peripheral vascular disease ICD Codes: I73.9 - Peripheral vascular disease, unspecified SNOMED: 376390560 (5) Failure to thrive in adult ICD Codes: R62.7 - Adult failure to thrive SNOMED: 650460723 (6) Chest pain ICD Codes: R07.9 - Chest pain, unspecified SNOMED: 11978583 Assessment/Plan abx pain rx transplant rx per renal xarelto? dc lasix f/u labs needs snf Subjective ROS Limited/Unobtainable: No Constitutional: Reports: no symptoms HEENT: Reports: no symptoms Cardiovascular: Reports: no symptoms Respiratory: Reports: no symptoms Gastrointestinal/Abdominal: Reports: no symptoms Genitourinary: Reports: no symptoms Neurologic/Psychiatric: Reports: no symptoms Endocrine: Reports: no symptoms Hematologic/Lymphatic: Reports: no symptoms Allergies: Coded Allergies: No Known Allergies (Verified , 05/29/09) All Systems: reviewed and negative except above Subjective c/o generalized pain. +UA noted. +esbl uti, no chest pain no sob. off lasix. labs pending. no edema Objective Last 24 Hour Vital Signs Date Time Temp Pulse Resp B/P (MAP) Pulse Ox O2 Delivery O2 Flow Rate FiO2 04/04/18 09:34 97.2 04/04/18 08:35 97.2 04/04/18 08:35 90 132/70 04/04/18 08:10 97.2 90 18 132/70 98 Room Air 97.2 04/04/18 05:56 131/60 04/04/18 04:19 97.9 80 20 131/60 97 Room Air 97.9 04/04/18 00:00 97.2 77 20 111/51 98 Room Air 97.2 04/03/18 21:11 127/70 04/03/18 20:00 97.7 86 18 127/70 98 Room Air 97.7 04/03/18 16:11 97.7 87 18 142/80 99 Room Air 97.7 04/03/18 14:54 123/60 04/03/18 12:00 97.3 85 18 123/60 99 Room Air 97.3 Intake and Output 04/03/18 04/04/18 19:00 07:00 Intake Total 240 ml Output Total 1 ml Balance 239 ml Intake Oral 240 ml Output Urine Total 1 ml # Voids 1 2 Height (Feet): 5 Height (Inches): 7.00 Weight (Pounds): 129 Objective General Appearance: WD/WN, alert Neck: supple Cardiovascular: regular rhythm Respiratory/Chest: chest wall non-tender, lungs clear, normal breath sounds Abdomen: normal bowel sounds, non tender, soft, no organomegaly Edema: mild edema 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
--- NOTE | 2018-04-04 11:57 | Nephrology Progress Note ---
Assessment/Plan Problem List: (1) UTI (urinary tract infection) (2) Abdominal pain (3) Diarrhea (4) Diastolic CHF with preserved left ventricular function, NYHA class 2 (5) Kidney transplanted (6) YEHUDA (acute kidney injury) Plan continue rx uti e coli no iv access, if no picc would give gentamycin 1-2 doses , avoid macrodantin as ckd and transplant meds, yehuda creat increase 1.7 likely from lasix, now stopped, observe Subjective Constitutional: Reports: weakness HEENT: Reports: no symptoms Genitourinary: Reports: incontinence Neurologic/Psychiatric: Reports: no symptoms Objective Objective Last 24 Hour Vital Signs Date Time Temp Pulse Resp B/P (MAP) Pulse Ox O2 Delivery O2 Flow Rate FiO2 04/04/18 09:34 97.2 04/04/18 08:35 97.2 04/04/18 08:35 90 132/70 04/04/18 08:10 97.2 90 18 132/70 98 Room Air 97.2 04/04/18 05:56 131/60 04/04/18 04:19 97.9 80 20 131/60 97 Room Air 97.9 04/04/18 00:00 97.2 77 20 111/51 98 Room Air 97.2 04/03/18 21:11 127/70 04/03/18 20:00 97.7 86 18 127/70 98 Room Air 97.7 04/03/18 16:11 97.7 87 18 142/80 99 Room Air 97.7 04/03/18 14:54 123/60 04/03/18 12:00 97.3 85 18 123/60 99 Room Air 97.3 Intake and Output 04/03/18 04/04/18 19:00 07:00 Intake Total 240 ml Output Total 1 ml Balance 239 ml Intake Oral 240 ml Output Urine Total 1 ml # Voids 1 2 Height (Feet): 5 Height (Inches): 7.00 Weight (Pounds): 129 General Appearance: no apparent distress, alert EENT: normal ENT inspection Neck: normal alignment, supple Cardiovascular: regular rhythm, regularly irregular Respiratory/Chest: lungs clear Abdomen: normal bowel sounds, non tender, soft Extremities: other - r APURVA King Apr 04, 2018 11:57
--- NOTE | 2018-04-04 12:21 | Infectious Diseases Prog Note ---
Assessment/Plan Assessment/Plan 1. E. coli UTI 2. s/p renal transplant 3. renal insufficiency worse today 4. hypertension 5. CHF P 1. continue IM Ertapenem as patient refusing line placement 2. will follow up cultures Subjective ROS Limited/Unobtainable: No Constitutional: Reports: no symptoms Cardiovascular: Reports: no symptoms Gastrointestinal/Abdominal: Reports: nausea Genitourinary: Reports: dysuria Allergies: Coded Allergies: No Known Allergies (Verified , 05/29/09) Objective Vital Signs Last 24 Hour Vital Signs Date Time Temp Pulse Resp B/P (MAP) Pulse Ox O2 Delivery O2 Flow Rate FiO2 04/04/18 12:00 97.3 81 18 122/63 99 Room Air 97.3 04/04/18 09:34 97.2 04/04/18 08:35 97.2 04/04/18 08:35 90 132/70 04/04/18 08:10 97.2 90 18 132/70 98 Room Air 97.2 04/04/18 05:56 131/60 04/04/18 04:19 97.9 80 20 131/60 97 Room Air 97.9 04/04/18 00:00 97.2 77 20 111/51 98 Room Air 97.2 04/03/18 21:11 127/70 04/03/18 20:00 97.7 86 18 127/70 98 Room Air 97.7 04/03/18 16:11 97.7 87 18 142/80 99 Room Air 97.7 04/03/18 14:54 123/60 Height (Feet): 5 Height (Inches): 7.00 Weight (Pounds): 129 General Appearance: no acute distress HEENT: mucous membranes moist Respiratory/Chest: lungs clear Cardiovascular: normal rate Abdomen: soft, non tender Extremities: no edema, other - R BKA Neurologic/Psychiatric: alert, responsive Current Medications Medications (Trade) Dose Ordered Sig/Toya Route PRN Reason Start Time Stop Time Status Last Admin Dose Admin Acetaminophen/ Hydrocodone Bitart ([place] 10/325) 1 tab Q4H PRN ORAL Severe Pain (Pain Scale 7-10) 03/31/18 16:45 04/05/18 12:44 04/04/18 05:58 Amlodipine Besylate (Norvasc) 5 mg DAILY ORAL 04/01/18 09:00 04/29/18 08:59 7/1/18 08:35 Artificial Tears ([place]-Tears) 1 drop TIDPRN PRN BOTH EYES Dry Eyes 03/31/18 16:00 04/30/18 15:59 04/03/18 09:17 Ascorbic Acid (Vitamin C) 500 mg DAILY ORAL 04/01/18 09:00 04/29/18 08:59 04/04/18 08:35 Azathioprine (Imuran) 75 mg DAILY ORAL 04/01/18 09:00 04/29/18 08:59 04/04/18 08:34 Cyclosporine (SandIMMUNE) 100 mg BID ORAL 03/31/18 18:00 04/28/18 17:59 04/04/18 08:34 Diphenoxylate HCl/ Atropine (Lomotil) 2.5 mg TIDPRN PRN ORAL Diarrhea 04/01/18 14:30 04/28/18 14:29 Ertapenem (INVanz) 0.5 gm Q24H IM 04/05/18 09:00 04/09/18 08:59 Fludrocortisone Acetate (Florinef) 0.1 mg DAILY ORAL 04/01/18 09:00 04/29/18 08:59 04/04/18 08:35 Hydralazine HCl (Apresoline) 25 mg EVERY 8 HOURS ORAL 03/31/18 22:00 04/28/18 21:59 04/04/18 05:56 Lidocaine (Xylocaine 1% MPF 5ml) 1.6 ml Q24H INJ 04/05/18 09:00 04/09/18 08:59 Morphine Sulfate (MS Contin) 15 mg EVERY 12 HOURS ORAL 03/31/18 21:00 04/05/18 20:59 04/04/18 08:35 Morphine Sulfate (Morphine Sulfate) 0.5 mg Q4H PRN IVP Moderate Pain (Pain Scale 4-6) 03/31/18 16:00 04/05/18 15:59 Ondansetron HCl (Zofran ODT) 4 mg Q6H PRN ORAL Nausea & Vomiting 04/02/18 11:30 05/02/18 11:29 04/03/18 17:05 Pantoprazole (Protonix) 40 mg DAILY ORAL 04/01/18 09:00 04/29/18 08:59 04/04/18 08:33 Pregabalin (Lyrica) 100 mg BID ORAL 03/31/18 18:00 04/28/18 17:59 04/04/18 08:34 Rivaroxaban (Xarelto) 15 mg QPM ORAL 03/31/18 16:30 04/28/18 16:29 04/03/18 17:01 Lucian Maguire MD Apr 04, 2018 12:21
[2018-04-04] MEDS: Xarelto 15mg tab ORAL SCH (16:24)
[2018-04-05] MEDS: HYDROcodone/Acetamin 10/325 tab ORAL PRN ×2 (00:28→06:10)
--- NOTE | 2018-04-05 01:30 | Progress Note ---
DATE: 04/04/2018 CARDIOLOGY PROGRESS NOTE SUBJECTIVE: No chest pain. No shortness of breath. The patient remains off diuretics. On antibiotics for multi-drug resistant urinary infection. OBJECTIVE: VITAL SIGNS: Blood pressure 132/70, pulse 90, and respirations 18. LUNGS: Clear. Chest wall tenderness is noted. CARDIAC: Regular rhythm and rate. Normal S1 and S2 with a fourth heart sound. ABDOMEN: Soft. EXTREMITIES: Reveal right AKA with no edema. LABORATORY AND DIAGNOSTIC DATA: No new laboratories. IMPRESSION: 1. Escherichia coli. 2. Multi-drug resistant urinary tract infection with sepsis. 3. Acute on chronic kidney insufficiency. 4. Renal transplant. 5. Chronic diastolic congestive heart failure. 6. Hypertensive heart disease. 7. Permanent pacemaker. 8. Peripheral artery disease with right above-knee amputation. PLAN: 1. Intravenous access. 2. Intravenous antimicrobials. 3. Avoid diuretics. 4. Hydrate cautiously. 5. Monitor volume status and cardiorenal parameters. 6. Pacemaker interrogation was completed several days ago and function and battery life were appropriate and adequate respectively. Matthew Tinajero M.D. DR: LALY JOB#: [id number] CC:
[2018-04-05 04:00] VITALS: BP 119/60
[2018-04-05] MEDS: HydrALAZINE 25mg tab ORAL SCH ×3 (06:09→22:43)
[2018-04-05 07:54] LABS: BASOPHILS % (AUTO) 1.5 % (0.0-2.0); EOSINOPHILS % (AUTO) 0.1 % (0.0-3.0); HEMATOCRIT 33.4 % (37.0-47.0); HEMOGLOBIN 11.1 G/DL (12.0-16.0); LYMPHOCYTES % (AUTO) 40.3 % (20.0-45.0); MEAN CORPUSCULAR VOLUME 98 FL (80-99); MONOCYTES % (AUTO) 9.3 % (1.0-10.0); NEUTROPHILS % (AUTO) 48.9 % (45.0-75.0); PLATELET COUNT 146 K/UL (150-450); RED BLOOD COUNT 3.39 M/UL (4.20-5.40); RED CELL DISTRIBUTION WIDTH 12.7 % (11.6-14.8); WHITE BLOOD COUNT 4.8 K/UL (4.8-10.8)
[2018-04-05 08:12] VITALS: BP 114/59
[2018-04-05 08:14] LABS: ANION GAP 8 mmol/L (5-15); BLOOD UREA NITROGEN 30 mg/dL (7-18); CALCIUM 9.3 MG/DL (8.5-10.1); CARBON DIOXIDE 28 MMOL/L (21-32); CHLORIDE 100 MMOL/L (98-107); CREATININE 1.7 MG/DL (0.55-1.30); POTASSIUM 3.2 MMOL/L (3.5-5.1); SODIUM 136 MMOL/L (136-145)
[2018-04-05] MEDS: MS Contin 15mg tab ORAL SCH (08:54)
[2018-04-05] MEDS: Ascorbic Acid 500mg tab ORAL SCH (08:55)
[2018-04-05] MEDS: cycloSPORINE 100mg cap ORAL SCH ×2 (08:55→17:23)
[2018-04-05] MEDS: azaTHIOprine 50 MG TAB ORAL SCH (08:55)
[2018-04-05] MEDS: Lyrica 50mg cap ORAL SCH ×2 (08:55→17:23)
[2018-04-05] MEDS: LIDOCAINE 1% INJ SCH (09:00)
[2018-04-05] MEDS: Ertapenem (INVanz) 1gm Inj IM SCH ×2 (09:32→09:34)
--- NOTE | 2018-04-05 10:10 | Diagnostic Imaging Report ---
APPROVED REPORT CPT Code: 53173 Present Symptoms Comments: R/O DVT RIGHT LEG: Venous imaging reveals recanalized chronic thrombus in the common to superficial femoral veins. Imaging also reveals patency of the popliteal vein. The greater saphenous vein is also within normal limits. Doppler indicates normal spontaneous flow within these segments. The tibial segments not imaged, due to below the knee amputation. LEFT LEG: Venous imaging reveals recanalized chronic thrombus in the common to superficial femoral veins. Imaging also reveals patency of the popliteal and calf veins. The greater saphenous vein is also within normal limits. Doppler indicates normal spontaneous flow within these segments. There is no evidence of acute deep vein thrombosis.
[2018-04-05 11:37] VITALS: BP 133/55
[2018-04-05] MEDS ORDERED: Lidocaine 1% Plain 30 ml INJ PRN (13:30)
[2018-04-05] MEDS ORDERED: Heparin 2000 units/Ns 1000ml INJ PRN (13:30)
--- NOTE | 2018-04-05 15:35 | Infectious Diseases Prog Note ---
Assessment/Plan Assessment/Plan 1. E. coli UTI 2. s/p renal transplant 3. renal insufficiency 4. hypertension 5. CHF P 1. continue IM Ertapenem as patient refusing line placement 2. will follow up cultures Subjective ROS Limited/Unobtainable: No Respiratory: Reports: no symptoms Gastrointestinal/Abdominal: Reports: nausea Musculoskeletal: Reports: pain Allergies: Coded Allergies: No Known Allergies (Verified , 05/29/09) Objective Vital Signs Last 24 Hour Vital Signs Date Time Temp Pulse Resp B/P (MAP) Pulse Ox O2 Delivery O2 Flow Rate FiO2 04/05/18 12:00 133/55 04/05/18 11:37 97.7 78 18 133/55 100 Room Air 97.7 04/05/18 09:04 98.0 04/05/18 09:04 98.0 04/05/18 09:02 91 114/59 04/05/18 08:54 98.0 04/05/18 08:12 98.0 91 18 114/59 100 Room Air 98.0 04/05/18 06:09 119/60 04/05/18 04:00 98.4 90 18 119/60 99 98.4 04/04/18 23:59 98.2 78 19 123/61 100 Room Air 98.2 04/04/18 21:42 130/70 04/04/18 20:00 97.8 72 18 130/70 99 Room Air 97.8 04/04/18 15:56 97.5 91 18 110/64 99 Room Air 97.5 Height (Feet): 5 Height (Inches): 7.00 Weight (Pounds): 136 General Appearance: no acute distress HEENT: mucous membranes moist Respiratory/Chest: lungs clear Cardiovascular: normal rate Abdomen: soft, non tender Extremities: no edema, other Neurologic/Psychiatric: alert, responsive Laboratory Tests Test 04/05/18 07:00 White Blood Count 4.8 K/UL (4.8-10.8) Red Blood Count 3.39 M/UL (4.20-5.40) L Hemoglobin 11.1 G/DL (12.0-16.0) L Hematocrit 33.4 % (37.0-47.0) L Mean Corpuscular Volume 98 FL (80-99) Mean Corpuscular Hemoglobin 32.7 PG (27.0-31.0) H Mean Corpuscular Hemoglobin Concent 33.3 G/DL (32.0-36.0) Red Cell Distribution Width 12.7 % (11.6-14.8) Platelet Count 146 K/UL (150-450) L Mean Platelet Volume 7.9 FL (6.5-10.1) Neutrophils (%) (Auto) 48.9 % (45.0-75.0) Lymphocytes (%) (Auto) 40.3 % (20.0-45.0) Monocytes (%) (Auto) 9.3 % (1.0-10.0) Eosinophils (%) (Auto) 0.1 % (0.0-3.0) Basophils (%) (Auto) 1.5 % (0.0-2.0) Sodium Level 136 MMOL/L (136-145) Potassium Level 3.2 MMOL/L (3.5-5.1) L Chloride Level 100 MMOL/L (98-107) Carbon Dioxide Level 28 MMOL/L (21-32) Anion Gap 8 mmol/L (5-15) Blood Urea Nitrogen 30 mg/dL (7-18) H Creatinine 1.7 MG/DL (0.55-1.30) H Estimat Glomerular Filtration Rate mL/min (>60) Glucose Level 94 MG/DL (74-106) Calcium Level 9.3 MG/DL (8.5-10.1) Current Medications Medications (Trade) Dose Ordered Sig/Toya Route PRN Reason Start Time Stop Time Status Last Admin Dose Admin Amlodipine Besylate (Norvasc) 5 mg DAILY ORAL 04/01/18 09:00 04/29/18 08:59 04/05/18 09:02 Artificial Tears (Akwa-Tears) 1 drop TIDPRN PRN BOTH EYES Dry Eyes 03/31/18 16:00 04/30/18 15:59 04/03/18 09:17 Ascorbic Acid (Vitamin C) 500 mg DAILY ORAL 04/01/18 09:00 04/29/18 08:59 04/05/18 08:55 Azathioprine (Imuran) 75 mg DAILY ORAL 04/01/18 09:00 04/29/18 08:59 04/05/18 08:55 Chlorhexidine Gluconate (Carissa-Hex 2%) 1 applic DAILY@1999 TOPIC 04/05/18 20:00 8/1/18 19:59 Cyclosporine (SandIMMUNE) 100 mg BID ORAL 03/31/18 18:00 04/28/18 17:59 04/05/18 08:55 Diphenoxylate HCl/ Atropine (Lomotil) 2.5 mg TIDPRN PRN ORAL Diarrhea 04/01/18 14:30 04/28/18 14:29 Ertapenem (INVanz) 0.5 gm Q24H IM 04/05/18 09:00 04/09/18 08:59 04/05/18 09:34 Fludrocortisone Acetate (Florinef) 0.1 mg DAILY ORAL 04/01/18 09:00 04/29/18 08:59 04/05/18 08:54 Heparin Sodium/ Sodium Chloride (Heparin 2000 units/Ns 1000ml premix) 2,000 unit ONCE PRN INJ for picc line placement 04/05/18 13:30 04/07/18 13:29 Hydralazine HCl (Apresoline) 25 mg EVERY 8 HOURS ORAL 03/31/18 22:00 04/28/18 21:59 04/05/18 12:00 Lidocaine (Xylocaine 1% MPF 5ml) 1.6 ml Q24H INJ 04/05/18 09:00 04/09/18 08:59 Lidocaine HCl (Xylocaine 1% 30ml) 30 ml ONCE PRN INJ for picc line placement 04/05/18 13:30 04/07/18 13:29 Morphine Sulfate (MS Contin) 15 mg EVERY 12 HOURS ORAL 03/31/18 21:00 04/05/18 20:59 04/05/18 08:54 Morphine Sulfate (Morphine Sulfate) 0.5 mg Q4H PRN IVP Moderate Pain (Pain Scale 4-6) 03/31/18 16:00 04/05/18 15:59 Ondansetron HCl (Zofran ODT) 4 mg Q6H PRN ORAL Nausea & Vomiting 04/02/18 11:30 05/02/18 11:29 04/05/18 06:09 Pantoprazole (Protonix) 40 mg DAILY ORAL 04/01/18 09:00 04/29/18 08:59 04/05/18 08:55 Pregabalin (Lyrica) 100 mg BID ORAL 03/31/18 18:00 04/28/18 17:59 04/05/18 08:55 Rivaroxaban (Xarelto) 15 mg QPM ORAL 03/31/18 16:30 04/28/18 16:29 04/04/18 16:24 Lucian Maguire MD Apr 05, 2018 15:35
[2018-04-05] MEDS: Xarelto 15mg tab ORAL SCH (15:44)
[2018-04-05 16:07] VITALS: BP 122/72
--- NOTE | 2018-04-05 16:24 | Diagnostic Imaging Report ---
Indication:Elevated Bun and Creatinine. Technique: Grayscale and duplex Doppler imaging of the kidneys performed. Comparison: None Findings: The [place] kidneys are echogenic consistent chronic renal insufficiency. There are bilateral renal cysts. There is no hydronephrosis. There is an transplanted kidney in the right iliac fossa. Resistive indices appear high (ranging from 0.73-0.81) but the waveforms appear normal with good diastolic flow and low resistance waveform throughout the cardiac cycle. Please correlate clinically. IVC and urinary bladder appear unremarkable. IMPRESSION: Transplanted right iliac fossa kidney. Resistive indices are borderline to high, but the waveforms appear good. Doppler exam is therefore somewhat equivocal for abnormality or disease. Correlate clinically for rejection versus ATN.
--- NOTE | 2018-04-05 16:27 | Nephrology Progress Note ---
Assessment/Plan Problem List: (1) UTI (urinary tract infection) (2) Abdominal pain (3) Diarrhea (4) Diastolic CHF with preserved left ventricular function, NYHA class 2 (5) Kidney transplanted (6) YEHUDA (acute kidney injury) Plan continue rx uti e coli no iv access,, avoid macrodantin as ckd and transplant meds, yehuda creat increase 1.7 likely from lasix, now stopped, observe Subjective Constitutional: Reports: weakness Genitourinary: Reports: incontinence Objective Objective Last 24 Hour Vital Signs Date Time Temp Pulse Resp B/P (MAP) Pulse Ox O2 Delivery O2 Flow Rate FiO2 04/05/18 16:07 98.0 92 18 122/72 98 Room Air 98.0 04/05/18 12:00 133/55 04/05/18 11:37 97.7 78 18 133/55 100 Room Air 97.7 04/05/18 09:04 98.0 04/05/18 09:04 98.0 04/05/18 09:02 91 114/59 04/05/18 08:54 98.0 04/05/18 08:12 98.0 91 18 114/59 100 Room Air 98.0 04/05/18 06:09 119/60 04/05/18 04:00 98.4 90 18 119/60 99 98.4 04/04/18 23:59 98.2 78 19 123/61 100 Room Air 98.2 04/04/18 21:42 130/70 04/04/18 20:00 97.8 72 18 130/70 99 Room Air 97.8 Intake and Output 04/04/18 04/05/18 19:00 07:00 Intake Total 180 ml 240 ml Balance 180 ml 240 ml Intake Oral 180 ml 240 ml # Voids 1 Laboratory Tests 04/05/18 07:00: White Blood Count 4.8, Red Blood Count 3.39L, Hemoglobin 11.1L, Hematocrit 33.4L , Mean Corpuscular Volume 98, Mean Corpuscular Hemoglobin 32.7H, Mean Corpuscular Hemoglobin Concent 33.3, Red Cell Distribution Width 12.7, Platelet Count 146L, Mean Platelet Volume 7.9, Neutrophils (%) (Auto) 48.9, Lymphocytes ( %) (Auto) 40.3, Monocytes (%) (Auto) 9.3, Eosinophils (%) (Auto) 0.1, Basophils (%) (Auto) 1.5, Sodium Level 136, Potassium Level 3.2L, Chloride Level 100, Carbon Dioxide Level 28, Anion Gap 8, Blood Urea Nitrogen 30H, Creatinine 1.7H, Estimat Glomerular Filtration Rate , Glucose Level 94, Calcium Level 9.3 Height (Feet): 5 Height (Inches): 7.00 Weight (Pounds): 136 General Appearance: no apparent distress EENT: normal ENT inspection Neck: normal alignment Cardiovascular: normal rate Respiratory/Chest: lungs clear Abdomen: soft Neurologic: deck hand II-XII grossly normal APURVA ROBERTSON Apr 05, 2018 16:27
--- NOTE | 2018-04-05 18:28 | General Progress Note ---
Assessment/Plan Problem List: (1) Urinary tract infection (2) Dehydration ICD Codes: E86.0 - Dehydration SNOMED: 87186484 (3) Diarrhea ICD Codes: R19.7 - Diarrhea SNOMED: 58922650 (4) Peripheral vascular disease ICD Codes: I73.9 - Peripheral vascular disease, unspecified SNOMED: 162153617 (5) Failure to thrive in adult ICD Codes: R62.7 - Adult failure to thrive SNOMED: 357731626 (6) Chest pain ICD Codes: R07.9 - Chest pain, unspecified SNOMED: 60617478 Assessment/Plan abx per id pain rx transplant rx per renal off lasix f/u labs ivf if able to get iv needs snf Subjective ROS Limited/Unobtainable: No Constitutional: Reports: malaise, weakness HEENT: Reports: no symptoms Cardiovascular: Reports: no symptoms Respiratory: Reports: no symptoms Gastrointestinal/Abdominal: Reports: no symptoms Genitourinary: Reports: no symptoms Neurologic/Psychiatric: Reports: no symptoms Endocrine: Reports: no symptoms Hematologic/Lymphatic: Reports: no symptoms Allergies: Coded Allergies: No Known Allergies (Verified , 05/29/09) All Systems: reviewed and negative except above Subjective c/o generalized pain. +UA noted. +esbl uti, no chest pain no sob. off lasix. Objective Last 24 Hour Vital Signs Date Time Temp Pulse Resp B/P (MAP) Pulse Ox O2 Delivery O2 Flow Rate FiO2 04/05/18 16:07 98.0 92 18 122/72 98 Room Air 98.0 04/05/18 12:00 133/55 04/05/18 11:37 97.7 78 18 133/55 100 Room Air 97.7 04/05/18 09:04 98.0 04/05/18 09:04 98.0 04/05/18 09:02 91 114/59 04/05/18 08:54 98.0 04/05/18 08:12 98.0 91 18 114/59 100 Room Air 98.0 04/05/18 06:09 119/60 04/05/18 04:00 98.4 90 18 119/60 99 98.4 04/04/18 23:59 98.2 78 19 123/61 100 Room Air 98.2 04/04/18 21:42 130/70 04/04/18 20:00 97.8 72 18 130/70 99 Room Air 97.8 Intake and Output 04/04/18 04/05/18 19:00 07:00 Intake Total 180 ml 240 ml Balance 180 ml 240 ml Intake Oral 180 ml 240 ml # Voids 1 Laboratory Tests 04/05/18 07:00: White Blood Count 4.8, Red Blood Count 3.39L, Hemoglobin 11.1L, Hematocrit 33.4L , Mean Corpuscular Volume 98, Mean Corpuscular Hemoglobin 32.7H, Mean Corpuscular Hemoglobin Concent 33.3, Red Cell Distribution Width 12.7, Platelet Count 146L, Mean Platelet Volume 7.9, Neutrophils (%) (Auto) 48.9, Lymphocytes ( %) (Auto) 40.3, Monocytes (%) (Auto) 9.3, Eosinophils (%) (Auto) 0.1, Basophils (%) (Auto) 1.5, Sodium Level 136, Potassium Level 3.2L, Chloride Level 100, Carbon Dioxide Level 28, Anion Gap 8, Blood Urea Nitrogen 30H, Creatinine 1.7H, Estimat Glomerular Filtration Rate , Glucose Level 94, Calcium Level 9.3 Height (Feet): 5 Height (Inches): 7.00 Weight (Pounds): 136 Objective General Appearance: WD/WN, alert Neck: supple Cardiovascular: regular rhythm Respiratory/Chest: chest wall non-tender, lungs clear, normal breath sounds Abdomen: normal bowel sounds, non tender, soft, no organomegaly Edema: mild edema Neurologic: engraver letter II-XII grossly normal, no motor/sensory deficits, abnormal gait , alert, oriented x 3, responsive John Red MD Apr 05, 2018 18:28
[2018-04-05 20:00] VITALS: BP 125/65
[2018-04-05] MEDS: Dyna-Hex 2% Top Sol 2oz TOPIC SCH (20:00)
--- NOTE | 2018-04-05 23:00 | Progress Note ---
DATE: 04/05/2018 CARDIOLOGY PROGRESS NOTE SUBJECTIVE: The patient continues on antibiotics. Pain has improved. She has no new complaints. OBJECTIVE: VITAL SIGNS: Blood pressure 122/72, pulse 92, and respirations 18. LUNGS: Clear. HEART: Regular rhythm and rate. Normal S1, S2. A 1/6 systolic apical murmur. ABDOMEN: Soft. EXTREMITIES: Right AKA stump clean and dry. IMPRESSION: 1. Multi-drug resistant urinary tract infection. 2. Permanent pacemaker. 3. Peripheral artery disease with right above-knee amputation. 4. Hypertensive heart disease. 5. Chronic diastolic congestive heart failure. PLAN: 1. Plan of care in place. Continue without change. 2. No need for diuretic therapy at this time. 3. Monitor cardiorenal parameters and volume status. Matthew Tinajero M.D. DR: LALY JOB#: [id number] CC:
[2018-04-06 04:00] VITALS: BP 122/67
[2018-04-06] MEDS: HydrALAZINE 25mg tab ORAL SCH ×3 (06:12→21:24)
[2018-04-06 07:02] LABS: ANION GAP 5 mmol/L (5-15); BLOOD UREA NITROGEN 28 mg/dL (7-18); CALCIUM 9.5 MG/DL (8.5-10.1); CARBON DIOXIDE 28 MMOL/L (21-32); CHLORIDE 103 MMOL/L (98-107); CREATININE 1.4 MG/DL (0.55-1.30); POTASSIUM 3.8 MMOL/L (3.5-5.1); SODIUM 136 MMOL/L (136-145)
[2018-04-06 08:00] VITALS: BP 110/55
--- NOTE | 2018-04-06 08:25 | General Progress Note ---
Assessment/Plan Problem List: (1) Urinary tract infection (2) Dehydration ICD Codes: E86.0 - Dehydration SNOMED: 78076752 (3) Diarrhea ICD Codes: R19.7 - Diarrhea SNOMED: 64664456 (4) Peripheral vascular disease ICD Codes: I73.9 - Peripheral vascular disease, unspecified SNOMED: 185316268 (5) Failure to thrive in adult ICD Codes: R62.7 - Adult failure to thrive SNOMED: 384923638 (6) Chest pain ICD Codes: R07.9 - Chest pain, unspecified SNOMED: 00501701 Status: stable, progressing Assessment/Plan abx per id pain rx transplant rx per renal off lasix f/u labs ivf if able to get iv needs snf Subjective ROS Limited/Unobtainable: No Constitutional: Reports: malaise, weakness HEENT: Reports: no symptoms Cardiovascular: Reports: no symptoms Respiratory: Reports: no symptoms Gastrointestinal/Abdominal: Reports: no symptoms Genitourinary: Reports: no symptoms Neurologic/Psychiatric: Reports: no symptoms Endocrine: Reports: no symptoms Hematologic/Lymphatic: Reports: no symptoms Allergies: Coded Allergies: No Known Allergies (Verified , 05/29/09) All Systems: reviewed and negative except above Subjective c/o generalized pain. +UA noted. +esbl uti, no chest pain no sob. off lasix. renal fxn improving Objective Last 24 Hour Vital Signs Date Time Temp Pulse Resp B/P (MAP) Pulse Ox O2 Delivery O2 Flow Rate FiO2 04/06/18 06:12 128/70 04/06/18 04:00 98.0 80 18 122/67 99 Room Air 98.0 04/05/18 22:43 139/70 04/05/18 20:00 98.1 92 18 125/65 97 Room Air 98.1 04/05/18 16:07 98.0 92 18 122/72 98 Room Air 98.0 04/05/18 12:00 133/55 04/05/18 11:37 97.7 78 18 133/55 100 Room Air 97.7 04/05/18 09:04 98.0 04/05/18 09:04 98.0 04/05/18 09:02 91 114/59 04/05/18 08:54 98.0 Intake and Output 04/05/18 04/06/18 19:00 07:00 Intake Total 480 ml Balance 480 ml Intake Oral 480 ml # Voids 2 2 Laboratory Tests 04/06/18 06:25: Sodium Level 136, Potassium Level 3.8, Chloride Level 103, Carbon Dioxide Level 28, Anion Gap 5, Blood Urea Nitrogen 28H, Creatinine 1.4H, Estimat Glomerular Filtration Rate , Glucose Level 89, Calcium Level 9.5 Height (Feet): 5 Height (Inches): 7.00 Weight (Pounds): 132 Objective General Appearance: WD/WN, alert Neck: supple Cardiovascular: regular rhythm Respiratory/Chest: chest wall non-tender, lungs clear, normal breath sounds Abdomen: normal bowel sounds, non tender, soft, no organomegaly Edema: mild edema Neurologic: orientor II-XII grossly normal, no motor/sensory deficits, abnormal gait , alert, oriented x 3, responsive John Red MD Apr 06, 2018 08:25
[2018-04-06] MEDS: Ertapenem (INVanz) 1gm Inj IM SCH (09:09)
[2018-04-06] MEDS: LIDOCAINE 1% INJ SCH (09:10)
[2018-04-06] MEDS: Ascorbic Acid 500mg tab ORAL SCH (09:11)
[2018-04-06] MEDS: Artificial Tears 1.4% Op Soln BOTH EYES PRN (09:11)
[2018-04-06] MEDS: azaTHIOprine 50 MG TAB ORAL SCH (09:11)
[2018-04-06] MEDS: cycloSPORINE 100mg cap ORAL SCH ×2 (09:11→17:13)
[2018-04-06] MEDS: Lyrica 50mg cap ORAL SCH ×2 (09:13→17:24)
[2018-04-06 12:00] VITALS: BP 121/91
--- NOTE | 2018-04-06 12:52 | Nephrology Progress Note ---
Assessment/Plan Problem List: (1) UTI (urinary tract infection) (2) Abdominal pain (3) Diarrhea (4) Diastolic CHF with preserved left ventricular function, NYHA class 2 (5) Kidney transplanted (6) YEHUDA (acute kidney injury) Plan continue rx uti e coli no iv access,, avoid macrodantin as ckd and transplant meds, yehuda creat increase 1.7 now 1.4 likely from lasix, now stopped, observe Subjective Constitutional: Reports: weakness HEENT: Reports: no symptoms Genitourinary: Reports: incontinence Neurologic/Psychiatric: Reports: no symptoms Objective Objective Last 24 Hour Vital Signs Date Time Temp Pulse Resp B/P (MAP) Pulse Ox O2 Delivery O2 Flow Rate FiO2 04/06/18 12:00 98.1 91 18 121/91 99 98.1 04/06/18 09:00 90 110/55 04/06/18 08:00 97.9 90 18 110/55 99 97.9 04/06/18 06:12 128/70 04/06/18 04:00 98.0 80 18 122/67 99 Room Air 98.0 04/05/18 22:43 139/70 04/05/18 20:00 98.1 92 18 125/65 97 Room Air 98.1 04/05/18 16:07 98.0 92 18 122/72 98 Room Air 98.0 Intake and Output 04/05/18 04/06/18 19:00 07:00 Intake Total 480 ml Balance 480 ml Intake Oral 480 ml # Voids 2 2 Laboratory Tests 04/06/18 06:25: Sodium Level 136, Potassium Level 3.8, Chloride Level 103, Carbon Dioxide Level 28, Anion Gap 5, Blood Urea Nitrogen 28H, Creatinine 1.4H, Estimat Glomerular Filtration Rate , Glucose Level 89, Calcium Level 9.5 Height (Feet): 5 Height (Inches): 7.00 Weight (Pounds): 132 General Appearance: no apparent distress, alert EENT: normal ENT inspection Neck: normal alignment Cardiovascular: normal rate, regular rhythm Respiratory/Chest: lungs clear Abdomen: soft Extremities: other - r bka no edema Neurologic: telephone information clerk II-XII grossly normal APURVA ROBERTSON Apr 06, 2018 12:52
[2018-04-06 16:02] VITALS: BP 114/59
[2018-04-06] MEDS ORDERED: NS 500ML ONE (16:15)
[2018-04-06] MEDS: Xarelto 15mg tab ORAL SCH (17:13)
[2018-04-06 20:00] VITALS: BP 144/76
[2018-04-06] MEDS: Dyna-Hex 2% Top Sol 2oz TOPIC SCH (20:00)
[2018-04-06] MEDS: MS Contin 15mg tab ORAL SCH (22:58)
[2018-04-07] VITALS: BP 119/58
--- NOTE | 2018-04-07 03:15 | Progress Note ---
DATE: 04/06/2018 CARDIOLOGY PROGRESS NOTE SUBJECTIVE: The patient still has generalized pain. No shortness of breath. Renal function is improved. OBJECTIVE: VITAL SIGNS: Blood pressure 128/70, pulse 80, respiratory rate 18, and afebrile. LUNGS: Clear. CARDIAC: Regular. ABDOMEN: Soft. EXTREMITIES: No edema. Right amputation of the lower extremity, chronic. LABORATORY DATA: Potassium 3.8, BUN 28, and creatinine 1.4. IMPRESSION: 1. Urinary tract infection with ESBL E. coli. 2. Sepsis. 3. Metabolic encephalopathy. 4. Permanent pacemaker. 5. Hypertensive heart disease. 6. Acute on chronic kidney injury. 7. Renal transplant. 8. Chronic diastolic congestive heart failure. PLAN: 1. No diuretics. 2. Antimicrobials. 3. Monitor volume status. 4. Cardiorenal parameters. 5. Maintain current cardiovascular regimen without change. Matthew Tinajero M.D. DR: RUDDY JOB#: [id number] CC:
[2018-04-07 04:00] VITALS: BP 126/65
[2018-04-07] MEDS: HydrALAZINE 25mg tab ORAL SCH ×3 (05:24→21:30)
[2018-04-07 07:58] LABS: ALANINE AMINOTRANSFERASE 9 U/L (12-78); ALBUMIN 3.1 G/DL (3.4-5.0); ALBUMIN/GLOBULIN RATIO 0.7 (1.0-2.7); ALKALINE PHOSPHATASE 68 U/L (46-116); ANION GAP 6 mmol/L (5-15); ASPARTATE AMINO TRANSFERASE 15 U/L (15-37); BILIRUBIN,TOTAL 0.8 MG/DL (0.2-1.0); BLOOD UREA NITROGEN 31 mg/dL (7-18); CALCIUM 9.9 MG/DL (8.5-10.1); CARBON DIOXIDE 25 MMOL/L (21-32); CHLORIDE 104 MMOL/L (98-107); CREATININE 1.3 MG/DL (0.55-1.30); SODIUM 135 MMOL/L (136-145)
[2018-04-07 08:33] VITALS: BP 117/65
[2018-04-07] MEDS: azaTHIOprine 50 MG TAB ORAL SCH (08:38)
[2018-04-07] MEDS: MS Contin 15mg tab ORAL SCH ×2 (08:38→21:30)
[2018-04-07] MEDS: Ascorbic Acid 500mg tab ORAL SCH (08:39)
[2018-04-07] MEDS: cycloSPORINE 100mg cap ORAL SCH ×2 (08:39→17:05)
[2018-04-07] MEDS: Lyrica 50mg cap ORAL SCH ×2 (08:39→17:06)
[2018-04-07] MEDS: Artificial Tears 1.4% Op Soln BOTH EYES PRN (08:40)
[2018-04-07] MEDS: Ertapenem (INVanz) 1gm Inj IM SCH (09:16)
[2018-04-07] MEDS: LIDOCAINE 1% INJ SCH (09:17)
--- NOTE | 2018-04-07 10:56 | Nephrology Progress Note ---
Assessment/Plan Problem List: (1) UTI (urinary tract infection) (2) Abdominal pain (3) Diarrhea (4) Diastolic CHF with preserved left ventricular function, NYHA class 2 (5) Kidney transplanted (6) YEHUDA (acute kidney injury) Plan continue rx uti e coli no iv access,, avoid macrodantin as ckd and transplant meds, yehuda creat increase 1.7 now 1.3 likely from lasix, now stopped, observe Subjective Constitutional: Reports: weakness HEENT: Reports: no symptoms Genitourinary: Reports: incontinence Neurologic/Psychiatric: Reports: no symptoms Objective Objective Last 24 Hour Vital Signs Date Time Temp Pulse Resp B/P (MAP) Pulse Ox O2 Delivery O2 Flow Rate FiO2 04/07/18 08:39 84 117/65 04/07/18 08:33 97.4 84 20 117/65 97 97.4 04/07/18 05:24 126/65 04/07/18 04:00 97.9 89 18 126/65 98 97.9 04/07/18 00:00 98.1 84 17 119/58 97 98.1 04/06/18 21:24 144/76 04/06/18 20:00 97.7 90 20 144/76 98 97.7 04/06/18 16:02 97.3 80 18 114/59 100 97.3 04/06/18 16:00 Room Air 04/06/18 14:32 121/91 04/06/18 12:00 Room Air 04/06/18 12:00 98.1 91 18 121/91 99 98.1 Intake and Output 04/06/18 04/07/18 19:00 07:00 Intake Total 480 ml 120 ml Balance 480 ml 120 ml Intake Oral 480 ml 120 ml # Voids 2 2 # Bowel Movements 2 Laboratory Tests 04/07/18 06:20: Sodium Level 135L, Potassium Level 4.0, Chloride Level 104, Carbon Dioxide Level 25, Anion Gap 6, Blood Urea Nitrogen 31H, Creatinine 1.3, Estimat Glomerular Filtration Rate , Glucose Level 82, Calcium Level 9.9, Total Bilirubin 0.8, Aspartate Amino Transf (AST/SGOT) 15, Alanine Aminotransferase ( ALT/SGPT) 9L, Alkaline Phosphatase 68, Total Protein 7.8, Albumin 3.1L, Globulin 4.7, Albumin/Globulin Ratio 0.7L Height (Feet): 5 Height (Inches): 7.00 Weight (Pounds): 134 General Appearance: no apparent distress EENT: normal ENT inspection Neck: normal alignment Cardiovascular: normal rate Respiratory/Chest: lungs clear Abdomen: non tender Neurologic: rn clinician II-XII grossly normal APURVA ROBERTSON Apr 07, 2018 10:56
--- NOTE | 2018-04-07 11:11 | Infectious Diseases Prog Note ---
Assessment/Plan Assessment/Plan antibiotics : ertapenem IM A 1. e.coli UTI 2. s/p renal transplant 3. renal insufficiency 4. hypertension 5. CHF P 1. continue ertapenem, change to iv as patient has iv access now for 2 more days 2. will follow up cultures Subjective Respiratory: Denies: shortness of breath, dry cough Gastrointestinal/Abdominal: Reports: nausea; Denies: vomiting, diarrhea Musculoskeletal: Reports: pain Allergies: Coded Allergies: No Known Allergies (Verified , 05/29/09) Objective Vital Signs Last 24 Hour Vital Signs Date Time Temp Pulse Resp B/P (MAP) Pulse Ox O2 Delivery O2 Flow Rate FiO2 04/07/18 08:39 84 117/65 04/07/18 08:33 97.4 84 20 117/65 97 97.4 04/07/18 05:24 126/65 04/07/18 04:00 97.9 89 18 126/65 98 97.9 04/07/18 00:00 98.1 84 17 119/58 97 98.1 04/06/18 21:24 144/76 04/06/18 20:00 97.7 90 20 144/76 98 97.7 04/06/18 16:02 97.3 80 18 114/59 100 97.3 04/06/18 16:00 Room Air 04/06/18 14:32 121/91 04/06/18 12:00 Room Air 04/06/18 12:00 98.1 91 18 121/91 99 98.1 Height (Feet): 5 Height (Inches): 7.00 Weight (Pounds): 134 Respiratory/Chest: lungs clear Cardiovascular: normal rate, regular rhythm, no gallop/murmur Abdomen: soft, non tender Extremities: no edema Laboratory Tests Test 04/07/18 06:20 Sodium Level 135 MMOL/L (136-145) L Potassium Level 4.0 MMOL/L (3.5-5.1) Chloride Level 104 MMOL/L (98-107) Carbon Dioxide Level 25 MMOL/L (21-32) Anion Gap 6 mmol/L (5-15) Blood Urea Nitrogen 31 mg/dL (7-18) H Creatinine 1.3 MG/DL (0.55-1.30) Estimat Glomerular Filtration Rate mL/min (>60) Glucose Level 82 MG/DL (74-106) Calcium Level 9.9 MG/DL (8.5-10.1) Total Bilirubin 0.8 MG/DL (0.2-1.0) Aspartate Amino Transf (AST/SGOT) 15 U/L (15-37) Alanine Aminotransferase (ALT/SGPT) 9 U/L (12-78) L Alkaline Phosphatase 68 U/L (46-116) Total Protein 7.8 G/DL (6.4-8.2) Albumin 3.1 G/DL (3.4-5.0) L Globulin 4.7 g/dL Albumin/Globulin Ratio 0.7 (1.0-2.7) L Current Medications Medications (Trade) Dose Ordered Sig/Toya Route PRN Reason Start Time Stop Time Status Last Admin Dose Admin Acetaminophen/ Hydrocodone Bitart ([place] 10/325) 1 tab Q4H PRN ORAL For Pain 04/06/18 22:45 04/13/18 22:44 Amlodipine Besylate (Norvasc) 5 mg DAILY ORAL 04/01/18 09:00 04/29/18 08:59 04/07/18 08:39 Artificial Tears (Akwa-Tears) 1 drop TIDPRN PRN BOTH EYES Dry Eyes 03/31/18 16:00 04/30/18 15:59 04/07/18 08:40 Ascorbic Acid (Vitamin C) 500 mg DAILY ORAL 04/01/18 09:00 04/29/18 08:59 04/07/18 08:39 Azathioprine (Imuran) 75 mg DAILY ORAL 04/01/18 09:00 04/29/18 08:59 04/07/18 08:38 Cyclosporine (SandIMMUNE) 100 mg BID ORAL 03/31/18 18:00 04/28/18 17:59 04/07/18 08:39 Diphenoxylate HCl/ Atropine (Lomotil) 2.5 mg TIDPRN PRN ORAL Diarrhea 04/01/18 14:30 04/28/18 14:29 Ertapenem (INVanz) 0.5 gm Q24H IV 04/08/18 09:00 04/09/18 08:59 Fludrocortisone Acetate (Florinef) 0.1 mg DAILY ORAL 04/01/18 09:00 04/29/18 08:59 04/07/18 08:38 Heparin Sodium/ Sodium Chloride (Heparin 2000 units/Ns 1000ml premix) 2,000 unit ONCE PRN INJ for picc line placement 04/05/18 13:30 04/07/18 13:29 Hydralazine HCl (Apresoline) 25 mg EVERY 8 HOURS ORAL 03/31/18 22:00 04/28/18 21:59 04/07/18 05:24 Morphine Sulfate (MS Contin) 15 mg Q12HR ORAL 04/06/18 22:45 04/13/18 22:44 04/07/18 08:38 Ondansetron HCl (Zofran ODT) 4 mg Q6H PRN ORAL Nausea & Vomiting 04/02/18 11:30 05/02/18 11:29 04/05/18 06:09 Pantoprazole (Protonix) 40 mg DAILY ORAL 04/01/18 09:00 04/29/18 08:59 04/07/18 08:38 Pregabalin (Lyrica) 100 mg BID ORAL 03/31/18 18:00 04/28/18 17:59 04/07/18 08:39 Rivaroxaban (Xarelto) 15 mg QPM ORAL 03/31/18 16:30 04/28/18 16:29 04/06/18 17:13 JARRED RUEDA Apr 07, 2018 11:11
[2018-04-07 12:00] VITALS: BP 117/66
--- NOTE | 2018-04-07 12:12 | General Progress Note ---
Assessment/Plan Problem List: (1) Urinary tract infection (2) Dehydration ICD Codes: E86.0 - Dehydration SNOMED: 37557910 (3) Diarrhea ICD Codes: R19.7 - Diarrhea SNOMED: 02390996 (4) Peripheral vascular disease ICD Codes: I73.9 - Peripheral vascular disease, unspecified SNOMED: 516756048 (5) Failure to thrive in adult ICD Codes: R62.7 - Adult failure to thrive SNOMED: 779610402 (6) Chest pain ICD Codes: R07.9 - Chest pain, unspecified SNOMED: 23730064 Status: stable Assessment/Plan abx per id pain rx transplant rx per renal off lasix f/u labs ivf if able to get iv hospital to pay for meds until pt can refill meds Subjective ROS Limited/Unobtainable: No Constitutional: Reports: malaise, weakness HEENT: Reports: no symptoms Cardiovascular: Reports: no symptoms Respiratory: Reports: no symptoms Gastrointestinal/Abdominal: Reports: no symptoms Genitourinary: Reports: no symptoms Neurologic/Psychiatric: Reports: pre-existing deficit Endocrine: Reports: no symptoms Hematologic/Lymphatic: Reports: no symptoms Allergies: Coded Allergies: No Known Allergies (Verified , 05/29/09) All Systems: reviewed and negative except above Subjective c/o generalized pain. +UA noted. +esbl uti, no chest pain no sob. off lasix. renal fxn improving Objective Last 24 Hour Vital Signs Date Time Temp Pulse Resp B/P (MAP) Pulse Ox O2 Delivery O2 Flow Rate FiO2 04/07/18 08:39 84 117/65 04/07/18 08:33 97.4 84 20 117/65 97 97.4 04/07/18 05:24 126/65 04/07/18 04:00 97.9 89 18 126/65 98 97.9 04/07/18 00:00 98.1 84 17 119/58 97 98.1 04/06/18 21:24 144/76 04/06/18 20:00 97.7 90 20 144/76 98 97.7 04/06/18 16:02 97.3 80 18 114/59 100 97.3 04/06/18 16:00 Room Air 04/06/18 14:32 121/91 Intake and Output 04/06/18 04/07/18 19:00 07:00 Intake Total 480 ml 120 ml Balance 480 ml 120 ml Intake Oral 480 ml 120 ml # Voids 2 2 # Bowel Movements 2 Laboratory Tests 04/07/18 06:20: Sodium Level 135L, Potassium Level 4.0, Chloride Level 104, Carbon Dioxide Level 25, Anion Gap 6, Blood Urea Nitrogen 31H, Creatinine 1.3, Estimat Glomerular Filtration Rate , Glucose Level 82, Calcium Level 9.9, Total Bilirubin 0.8, Aspartate Amino Transf (AST/SGOT) 15, Alanine Aminotransferase ( ALT/SGPT) 9L, Alkaline Phosphatase 68, Total Protein 7.8, Albumin 3.1L, Globulin 4.7, Albumin/Globulin Ratio 0.7L Height (Feet): 5 Height (Inches): 7.00 Weight (Pounds): 134 Objective General Appearance: WD/WN, alert Neck: supple Cardiovascular: regular rhythm Respiratory/Chest: chest wall non-tender, lungs clear, normal breath sounds Abdomen: normal bowel sounds, non tender, soft, no organomegaly Edema: mild edema 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
[2018-04-07] MEDS: HYDROcodone/Acetamin 10/325 tab ORAL PRN ×2 (13:37→23:33)
[2018-04-07 16:00] VITALS: BP 111/67
[2018-04-07] MEDS: Xarelto 15mg tab ORAL SCH (17:05)
[2018-04-07 19:37] VITALS: BP 105/59
--- NOTE | 2018-04-07 23:51 | General Progress Note ---
Subjective Allergies: Coded Allergies: No Known Allergies (Verified , 05/29/09) Subjective wrong pt/ Objective Last 24 Hour Vital Signs Date Time Temp Pulse Resp B/P (MAP) Pulse Ox O2 Delivery O2 Flow Rate FiO2 04/07/18 23:33 97.7 04/07/18 22:29 97.7 04/07/18 21:30 97.7 04/07/18 21:30 105/59 04/07/18 20:16 Room Air 04/07/18 19:37 97.7 78 20 105/59 99 Room Air 97.7 04/07/18 16:00 97.2 87 20 111/67 99 Room Air 97.2 04/07/18 13:38 117/66 04/07/18 12:00 98.1 91 20 117/66 99 Room Air 98.1 04/07/18 08:39 84 117/65 04/07/18 08:33 Room Air 04/07/18 08:33 97.4 84 20 117/65 97 97.4 04/07/18 05:24 126/65 04/07/18 04:00 97.9 89 18 126/65 98 97.9 04/07/18 00:00 98.1 84 17 119/58 97 98.1 Intake and Output 04/06/18 04/07/18 19:00 07:00 Intake Total 480 ml 120 ml Balance 480 ml 120 ml Intake Oral 480 ml 120 ml # Voids 2 2 # Bowel Movements 2 Laboratory Tests 04/07/18 06:20: Sodium Level 135L, Potassium Level 4.0, Chloride Level 104, Carbon Dioxide Level 25, Anion Gap 6, Blood Urea Nitrogen 31H, Creatinine 1.3, Estimat Glomerular Filtration Rate , Glucose Level 82, Calcium Level 9.9, Total Bilirubin 0.8, Aspartate Amino Transf (AST/SGOT) 15, Alanine Aminotransferase ( ALT/SGPT) 9L, Alkaline Phosphatase 68, Total Protein 7.8, Albumin 3.1L, Globulin 4.7, Albumin/Globulin Ratio 0.7L Height (Feet): 5 Height (Inches): 7.00 Weight (Pounds): 134 Syeda Price MD Apr 07, 2018 23:51
[2018-04-08] VITALS (7 sets, daily range): BP systolic 109–126; BP diastolic 58–69
[2018-04-08] MEDS: HYDROcodone/Acetamin 10/325 tab ORAL PRN (04:05)
--- NOTE | 2018-04-08 04:45 | Progress Note ---
DATE: 04/07/2018 CARDIOLOGY PROGRESS NOTE SUBJECTIVE: The patient remains on IV antibiotics for a multi-drug resistant E. coli pathogen in the urine. The pacemaker was interrogated, functioning adequately. The patient has minimal pain. No chest pain or shortness of breath. Aching in her extremities persists. OBJECTIVE: VITAL SIGNS: Blood pressure 117/65, pulse 84, respiratory rate 20, and afebrile. EXTREMITIES/SKIN: Stump is dry. LUNGS: Clear. CARDIAC: Regular. Normal S1, S2 with a fourth heart sound. ABDOMEN: Soft and nontender. IMPRESSION AND PLAN: 1. Cardiovascular parameters are stable. 2. The patient is at risk for sepsis without completing IV antibiotics. 3. Discharge planning in progress. 4. Medication regimen reviewed and reconciled. Matthew Tinajero M.D. DR: Reji JOB#: [id number] CC:
[2018-04-08] MEDS: HydrALAZINE 25mg tab ORAL SCH ×3 (06:12→21:05)
[2018-04-08] MEDS: Lyrica 50mg cap ORAL SCH ×2 (08:32→17:08)
[2018-04-08] MEDS: MS Contin 15mg tab ORAL SCH ×2 (08:33→21:04)
[2018-04-08] MEDS: azaTHIOprine 50 MG TAB ORAL SCH (08:33)
[2018-04-08] MEDS: cycloSPORINE 100mg cap ORAL SCH ×2 (08:33→17:08)
[2018-04-08] MEDS: Ascorbic Acid 500mg tab ORAL SCH (08:34)
[2018-04-08] MEDS ORDERED: Ertapenem (INVanz) 1gm Inj IV SCH (09:00)
[2018-04-08] MEDS: Ertapenem 1gm in NS 55ml IVPB SCH (10:06)
--- NOTE | 2018-04-08 12:24 | Infectious Diseases Prog Note ---
Assessment/Plan Assessment/Plan 1. E. coli UTI 2. s/p renal transplant 3. renal insufficiency 4. hypertension 5. CHF P 1. continue IV Ertapenem 2. will follow up cultures Subjective ROS Limited/Unobtainable: Yes Respiratory: Reports: no symptoms Cardiovascular: Reports: no symptoms Gastrointestinal/Abdominal: Reports: no symptoms Genitourinary: Reports: dysuria Allergies: Coded Allergies: No Known Allergies (Verified , 05/29/09) Objective Vital Signs Last 24 Hour Vital Signs Date Time Temp Pulse Resp B/P (MAP) Pulse Ox O2 Delivery O2 Flow Rate FiO2 04/08/18 09:32 98.0 04/08/18 08:33 98.0 04/08/18 08:17 81 109/64 04/08/18 08:01 98.0 81 20 109/64 99 98.0 04/08/18 08:01 Room Air 04/08/18 06:12 113/64 04/08/18 04:00 Room Air 04/08/18 04:00 97.6 83 18 113/64 99 Room Air 97.6 04/08/18 00:32 97.7 04/08/18 00:00 98.0 88 18 118/66 97 Room Air 98.0 04/08/18 00:00 98.0 88 18 118/66 97 Room Air 98.0 04/07/18 23:33 97.7 04/07/18 21:30 97.7 04/07/18 21:30 105/59 04/07/18 20:16 Room Air 04/07/18 19:37 97.7 78 20 105/59 99 Room Air 97.7 04/07/18 16:00 97.2 87 20 111/67 99 Room Air 97.2 04/07/18 13:38 117/66 Height (Feet): 5 Height (Inches): 7.00 Weight (Pounds): 136 HEENT: mucous membranes moist Respiratory/Chest: lungs clear Cardiovascular: normal rate, other - peripheral line Abdomen: soft, non tender Extremities: no edema Neurologic/Psychiatric: alert, oriented x 3, responsive, normal mood/affect Current Medications Medications (Trade) Dose Ordered Sig/Toya Route PRN Reason Start Time Stop Time Status Last Admin Dose Admin Acetaminophen/ Hydrocodone Bitart ([place] 10/325) 1 tab Q4H PRN ORAL For Pain 04/06/18 22:45 04/13/18 22:44 04/08/18 04:05 Amlodipine Besylate (Norvasc) 5 mg DAILY ORAL 04/01/18 09:00 04/29/18 08:59 04/07/18 08:39 Artificial Tears (Akwa-Tears) 1 drop TIDPRN PRN BOTH EYES Dry Eyes 03/31/18 16:00 04/30/18 15:59 04/07/18 08:40 Ascorbic Acid (Vitamin C) 500 mg DAILY ORAL 04/01/18 09:00 04/29/18 08:59 04/08/18 08:34 Azathioprine (Imuran) 75 mg DAILY ORAL 04/09/18 09:00 04/29/18 08:59 Cyclosporine (SandIMMUNE) 100 mg BID ORAL 03/31/18 18:00 04/28/18 17:59 04/08/18 08:33 Diphenoxylate HCl/ Atropine (Lomotil) 2.5 mg TIDPRN PRN ORAL Diarrhea 04/01/18 14:30 04/28/18 14:29 Ertapenem 1 gm/ Sodium Chloride 55 ml @ 110 mls/hr Q24H IVPB 04/08/18 10:00 04/13/18 09:59 04/08/18 10:06 Fludrocortisone Acetate (Florinef) 0.1 mg DAILY ORAL 04/01/18 09:00 04/29/18 08:59 04/08/18 08:34 Hydralazine HCl (Apresoline) 25 mg EVERY 8 HOURS ORAL 03/31/18 22:00 04/28/18 21:59 04/08/18 06:12 Morphine Sulfate (MS Contin) 15 mg Q12HR ORAL 04/06/18 22:45 04/13/18 22:44 04/08/18 08:33 Ondansetron HCl (Zofran ODT) 4 mg Q6H PRN ORAL Nausea & Vomiting 04/02/18 11:30 05/02/18 11:29 04/05/18 06:09 Pantoprazole (Protonix) 40 mg DAILY ORAL 04/01/18 09:00 04/29/18 08:59 04/08/18 08:33 Pregabalin (Lyrica) 100 mg BID ORAL 03/31/18 18:00 04/28/18 17:59 04/08/18 08:32 Rivaroxaban (Xarelto) 15 mg QPM ORAL 03/31/18 16:30 04/28/18 16:29 04/07/18 17:05 Lucian Maguire MD Apr 08, 2018 12:24
--- NOTE | 2018-04-08 14:58 | Nephrology Progress Note ---
Assessment/Plan Problem List: (1) UTI (urinary tract infection) (2) Abdominal pain (3) Diarrhea (4) Diastolic CHF with preserved left ventricular function, NYHA class 2 (5) Kidney transplanted (6) YEHUDA (acute kidney injury) Plan continue rx uti e coli no iv access,, avoid macrodantin as ckd and transplant meds, yehuda creat increase 1.7 now 1.3 likely from lasix, now stopped, observe Subjective Constitutional: Reports: weakness HEENT: Reports: no symptoms Genitourinary: Reports: incontinence Neurologic/Psychiatric: Reports: no symptoms Objective Objective Last 24 Hour Vital Signs Date Time Temp Pulse Resp B/P (MAP) Pulse Ox O2 Delivery O2 Flow Rate FiO2 04/08/18 13:59 122/69 04/08/18 13:58 87 122/69 04/08/18 12:00 Room Air 04/08/18 12:00 98.0 84 20 111/58 100 98.0 04/08/18 09:32 98.0 04/08/18 08:33 98.0 04/08/18 08:17 81 109/64 04/08/18 08:01 98.0 81 20 109/64 99 98.0 04/08/18 08:01 Room Air 04/08/18 06:12 113/64 04/08/18 04:00 Room Air 04/08/18 04:00 97.6 83 18 113/64 99 Room Air 97.6 04/08/18 00:32 97.7 04/08/18 00:00 98.0 88 18 118/66 97 Room Air 98.0 04/08/18 00:00 98.0 88 18 118/66 97 Room Air 98.0 04/07/18 23:33 97.7 04/07/18 21:30 97.7 04/07/18 21:30 105/59 04/07/18 20:16 Room Air 04/07/18 19:37 97.7 78 20 105/59 99 Room Air 97.7 04/07/18 16:00 97.2 87 20 111/67 99 Room Air 97.2 Intake and Output 04/07/18 04/08/18 19:00 07:00 Intake Total 600 ml 500 ml Output Total 600 ml Balance 0 ml 500 ml Intake Oral 600 ml 500 ml Output Urine Total 600 ml Height (Feet): 5 Height (Inches): 7.00 Weight (Pounds): 136 General Appearance: no apparent distress EENT: normal ENT inspection Neck: normal alignment Cardiovascular: regular rhythm Respiratory/Chest: lungs clear Abdomen: non tender, soft Extremities: other - no edema APURVA Marques Apr 08, 2018 14:58
--- NOTE | 2018-04-08 17:06 | General Progress Note ---
Assessment/Plan Problem List: (1) Urinary tract infection (2) Dehydration ICD Codes: E86.0 - Dehydration SNOMED: 36566379 (3) Diarrhea ICD Codes: R19.7 - Diarrhea SNOMED: 55766633 (4) Peripheral vascular disease ICD Codes: I73.9 - Peripheral vascular disease, unspecified SNOMED: 397265007 (5) Failure to thrive in adult ICD Codes: R62.7 - Adult failure to thrive SNOMED: 028711865 (6) Chest pain ICD Codes: R07.9 - Chest pain, unspecified SNOMED: 25890601 Status: progressing, tolerating diet Assessment/Plan abx per id pain rx transplant rx per renal off lasix f/u labs ivf if able to get iv hospital to pay for meds until pt can refill meds vs going to snf Subjective ROS Limited/Unobtainable: No Constitutional: Reports: malaise, weakness HEENT: Reports: no symptoms Cardiovascular: Reports: no symptoms Respiratory: Reports: no symptoms Gastrointestinal/Abdominal: Reports: no symptoms Genitourinary: Reports: no symptoms Neurologic/Psychiatric: Reports: depressed Endocrine: Reports: no symptoms Hematologic/Lymphatic: Reports: anemia Allergies: Coded Allergies: No Known Allergies (Verified , 05/29/09) All Systems: reviewed and negative except above Subjective c/o generalized pain. +UA noted. +esbl uti, no chest pain no sob. off lasix. renal fxn back to baseline Objective Last 24 Hour Vital Signs Date Time Temp Pulse Resp B/P (MAP) Pulse Ox O2 Delivery O2 Flow Rate FiO2 04/08/18 15:45 Room Air 04/08/18 15:42 97.5 84 20 118/66 100 97.5 04/08/18 13:59 122/69 04/08/18 13:58 87 122/69 04/08/18 12:00 Room Air 04/08/18 12:00 98.0 84 20 111/58 100 98.0 04/08/18 09:32 98.0 04/08/18 08:33 98.0 04/08/18 08:17 81 109/64 04/08/18 08:01 98.0 81 20 109/64 99 98.0 04/08/18 08:01 Room Air 04/08/18 06:12 113/64 7/5/18 04:00 Room Air 04/08/18 04:00 97.6 83 18 113/64 99 Room Air 97.6 04/08/18 00:32 97.7 04/08/18 00:00 98.0 88 18 118/66 97 Room Air 98.0 04/08/18 00:00 98.0 88 18 118/66 97 Room Air 98.0 04/07/18 23:33 97.7 04/07/18 21:30 97.7 04/07/18 21:30 105/59 04/07/18 20:16 Room Air 04/07/18 19:37 97.7 78 20 105/59 99 Room Air 97.7 Intake and Output 04/07/18 04/08/18 19:00 07:00 Intake Total 600 ml 500 ml Output Total 600 ml Balance 0 ml 500 ml Intake Oral 600 ml 500 ml Output Urine Total 600 ml Height (Feet): 5 Height (Inches): 7.00 Weight (Pounds): 136 Objective General Appearance: WD/WN, alert Neck: supple Cardiovascular: regular rhythm Respiratory/Chest: chest wall non-tender, lungs clear, normal breath sounds Abdomen: normal bowel sounds, non tender, soft, no organomegaly Edema: mild edema 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
[2018-04-08] MEDS: Xarelto 15mg tab ORAL SCH (17:08)
[2018-04-09] VITALS: BP 122/70
--- NOTE | 2018-04-09 03:15 | Progress Note ---
DATE: 04/08/2018 CARDIOLOGY PROGRESS NOTE SUBJECTIVE: The patient is off diuretics. She has no shortness of breath. Renal function has normalized. OBJECTIVE: VITAL SIGNS: Blood pressure 118/66, pulse 84, and respirations 20. Afebrile. LUNGS: Clear. CARDIAC: Regular. Normal S1, S2 with a fourth heart sound. ABDOMEN: Soft. Transplant site palpable. EXTREMITIES: With right AKA. No edema. LABORATORY DATA: No new laboratory studies. IMPRESSION: 1. Acute renal failure, recovered. 2. Renal transplant, stable. 3. Mild protein-calorie malnutrition. 4. Hypertensive heart disease. 5. Permanent pacemaker. 6. Multi-drug resistant urinary tract infection. PLAN: 1. No additional cardiovascular studies planned. 2. Remained stable on current regimen. 3. Outpatient pacemaker interrogation to be arranged. Matthew Tinajero M.D. DR: LALY JOB#: [id number] CC:
[2018-04-09 04:00] VITALS: BP 132/66
[2018-04-09] MEDS: HydrALAZINE 25mg tab ORAL SCH (05:23)
[2018-04-09] MEDS: HYDROcodone/Acetamin 10/325 tab ORAL PRN (05:25)
[2018-04-09 06:51] LABS: ANION GAP 6 mmol/L (5-15); BLOOD UREA NITROGEN 30 mg/dL (7-18); CALCIUM 9.4 MG/DL (8.5-10.1); CARBON DIOXIDE 28 MMOL/L (21-32); CHLORIDE 104 MMOL/L (98-107); CREATININE 1.2 MG/DL (0.55-1.30); POTASSIUM 4.5 MMOL/L (3.5-5.1); SODIUM 138 MMOL/L (136-145)
[2018-04-09 08:00] VITALS: BP 108/58
[2018-04-09] MEDS: cycloSPORINE 100mg cap ORAL SCH (08:26)
[2018-04-09] MEDS: MS Contin 15mg tab ORAL SCH (08:28)
[2018-04-09] MEDS: Ascorbic Acid 500mg tab ORAL SCH (08:29)
[2018-04-09] MEDS: Lyrica 50mg cap ORAL SCH (08:29)
[2018-04-09] MEDS ORDERED: azaTHIOprine 50 MG TAB ORAL SCH (09:00)
[2018-04-09] MEDS: Ertapenem 1gm in NS 55ml IVPB SCH (10:34)
--- NOTE | 2018-04-09 10:36 | Infectious Diseases Prog Note ---
Assessment/Plan Assessment/Plan antibiotics : ertapenem iv A 1. e.coli UTI 2. s/p renal transplant 3. renal insufficiency improving 4. hypertension 5. CHF P 1. continue ertapenem 3 more days 2. will follow up cultures Subjective Constitutional: Denies: fever, chills Respiratory: Denies: shortness of breath, dry cough Gastrointestinal/Abdominal: Reports: nausea; Denies: vomiting, diarrhea Musculoskeletal: Reports: pain Allergies: Coded Allergies: No Known Allergies (Verified , 05/29/09) Objective Vital Signs Last 24 Hour Vital Signs Date Time Temp Pulse Resp B/P (MAP) Pulse Ox O2 Delivery O2 Flow Rate FiO2 04/09/18 08:27 82 108/58 04/09/18 08:00 97.8 82 19 108/58 98 97.8 04/09/18 05:23 132/66 04/09/18 04:00 98.1 80 20 132/66 97 Room Air 98.1 04/09/18 00:00 97.8 89 20 122/70 98 Room Air 97.8 04/08/18 21:05 126/68 04/08/18 20:00 98.1 87 18 126/68 98 Room Air 98.1 04/08/18 15:45 Room Air 04/08/18 15:42 97.5 84 20 118/66 100 97.5 04/08/18 13:59 122/69 04/08/18 13:58 87 122/69 04/08/18 12:00 Room Air 04/08/18 12:00 98.0 84 20 111/58 100 98.0 Height (Feet): 5 Height (Inches): 7.00 Weight (Pounds): 134 Respiratory/Chest: lungs clear Cardiovascular: normal rate, regular rhythm, no gallop/murmur Abdomen: soft, non tender Extremities: no edema Laboratory Tests Test 04/09/18 05:35 Sodium Level 138 MMOL/L (136-145) Potassium Level 4.5 MMOL/L (3.5-5.1) Chloride Level 104 MMOL/L (98-107) Carbon Dioxide Level 28 MMOL/L (21-32) Anion Gap 6 mmol/L (5-15) Blood Urea Nitrogen 30 mg/dL (7-18) H Creatinine 1.2 MG/DL (0.55-1.30) Estimat Glomerular Filtration Rate mL/min (>60) Glucose Level 87 MG/DL (74-106) Calcium Level 9.4 MG/DL (8.5-10.1) Current Medications Medications (Trade) Dose Ordered Sig/Toya Route PRN Reason Start Time Stop Time Status Last Admin Dose Admin Acetaminophen/ Hydrocodone Bitart ([place] 10325) 1 tab Q4H PRN ORAL For Pain 04/06/18 22:45 04/13/18 22:44 04/09/18 05:25 Amlodipine Besylate (Norvasc) 5 mg DAILY ORAL 04/01/18 09:00 04/29/18 08:59 04/07/18 08:39 Artificial Tears (Akwa-Tears) 1 drop TIDPRN PRN BOTH EYES Dry Eyes 03/31/18 16:00 04/30/18 15:59 04/07/18 08:40 Ascorbic Acid (Vitamin C) 500 mg DAILY ORAL 04/01/18 09:00 04/29/18 08:59 04/09/18 08:29 Azathioprine (Imuran) 75 mg DAILY ORAL 04/09/18 09:00 04/29/18 08:59 04/09/18 08:26 Cyclosporine (SandIMMUNE) 100 mg BID ORAL 03/31/18 18:00 04/28/18 17:59 04/09/18 08:26 Diphenoxylate HCl/ Atropine (Lomotil) 2.5 mg TIDPRN PRN ORAL Diarrhea 04/01/18 14:30 04/28/18 14:29 Ertapenem 1 gm/ Sodium Chloride 55 ml @ 110 mls/hr Q24H IVPB 04/08/18 10:00 04/13/18 09:59 04/08/18 10:06 Fludrocortisone Acetate (Florinef) 0.1 mg DAILY ORAL 04/01/18 09:00 04/29/18 08:59 04/09/18 08:29 Hydralazine HCl (Apresoline) 25 mg EVERY 8 HOURS ORAL 03/31/18 22:00 04/28/18 21:59 04/09/18 05:23 Morphine Sulfate (MS Contin) 15 mg Q12HR ORAL 04/06/18 22:45 04/13/18 22:44 04/09/18 08:28 Ondansetron HCl (Zofran ODT) 4 mg Q6H PRN ORAL Nausea & Vomiting 04/02/18 11:30 05/02/18 11:29 04/05/18 06:09 Pantoprazole (Protonix) 40 mg DAILY ORAL 04/01/18 09:00 04/29/18 08:59 04/09/18 08:29 Pregabalin (Lyrica) 100 mg BID ORAL 03/31/18 18:00 04/28/18 17:59 04/09/18 08:29 Rivaroxaban (Xarelto) 15 mg QPM ORAL 03/31/18 16:30 04/28/18 16:29 04/08/18 17:08 JARRED RUEDA Apr 09, 2018 10:36
[2018-04-09 12:00] VITALS: BP 109/57
[2018-04-09] MEDS ORDERED: NS 275ml ONE (13:59)
[2018-04-09] MEDS ORDERED: Tubing IV Secondary IV ONE (13:59)
--- NOTE | 2018-04-10 04:45 | Discharge Summary ---
DATE OF ADMISSION: 03/29/2018 DATE OF DISCHARGE: 04/09/2018 ADMISSION DIAGNOSES: 1. UTI. 2. Failure to thrive. 3. Nausea and vomiting. 4. History of kidney transplant. 5. History of stroke. 6. History of DVT. DISCHARGE DIAGNOSES: 1. UTI. 2. Failure to thrive. 3. Nausea and vomiting. 4. History of kidney transplant. 5. History of stroke. 6. History of DVT. 7. Acute renal failure. HOSPITAL COURSE: The patient is a pleasant female who was transferred with failure to thrive, intractable nausea and vomiting, and abdominal pain. She has been without any of her medications as her family had accidentally lost all of her medications including a transplant medication. She was hydrated and resumed back on her transfer medications. She had evidence of urinary tract infection. She was treated with intravenous antibiotics. Her hospital course was complicated by acute renal failure, possible secondary to volume depletion due to diuretic therapy. This was discontinued. On discharge, the patient's renal function has improved, back to baseline. The patient refused to go back home with her son and her grandchildren whom she believes were stealing from her. She was referred to the group home facility for rehab. DISCHARGE MEDICATIONS: Please see discharge medication list for discharge medications. DIET: Cardiac diet. ACTIVITIES: Ad marsha. FOLLOWUP: The patient to follow up in one to two days at the group home facility. John Red M.D. DR: DAYSI JOB#: [id number] CC:
--- NOTE | 2018-04-12 10:32 | Cardiology Report ---
APPROVED REPORT EKG Measurement Heart [id number] Atrial pacing Abnormal ECG
== END 2018-04-09 14:00 | DRG 682 ==
LOC: 2E 12:26 → 4W 03-31 15:33
DX: N17.9 Acute kidney failure, unspecified (principal); G92 Toxic encephalopathy; N39.0 Urinary tract infection, site not specified; I50.32 Chronic diastolic (congestive) heart failure; E44.0 Moderate protein-calorie malnutrition; Z94.0 Kidney transplant status; I13.2 Hypertensive heart and chronic kidney disease with heart failure and with stage 5 chronic kidney disease, or end stage renal disease; N18.6 End stage renal disease; R19.7 Diarrhea, unspecified; R62.7 Adult failure to thrive; R11.2 Nausea with vomiting, unspecified; Z86.718 Personal history of other venous thrombosis and embolism; Z89.511 Acquired absence of right leg below knee; B96.20 Unspecified Escherichia coli [E. coli] as the cause of diseases classified elsewhere; G62.9 Polyneuropathy, unspecified; I25.119 Atherosclerotic heart disease of native coronary artery with unspecified angina pectoris; Z95.0 Presence of cardiac pacemaker; E86.0 Dehydration; E88.81 Metabolic syndrome and other insulin resistance; R73.09 Other abnormal glucose; G89.4 Chronic pain syndrome; Z79.01 Long term (current) use of anticoagulants; R10.9 Unspecified abdominal pain; Z16.24 Resistance to multiple antibiotics
CPT/HCPCS: 36415; 71045; 76770; 80048; 80053; 80158; 81003; 82962; 83036; 84443; 84484; 85025; 87081; 87086; 87181; 93005; 93970; J8499

== ENCOUNTER 2018-05-10 14:33 | Inpatient (IN) | payer MEDICARE ==
[~2018-05-10] VITALS: Ht 165.1 cm; Wt 65.3 kg
[~2018-05-10 14:33] MED LIST changes: +CYCLOSPORINE ORAL; +HYDROcodone/Acetamin 10/325 ORAL; +LOPERAMIDE2 M1 PO; +MORPHINE SULFAT15 M1 PO; +PANTOPRAZOLE SO40 MG ORAL
[2018-05-10] MEDS ORDERED: Isovue-300 100ml vial INJ PRN (15:00)
--- NOTE | 2018-05-10 15:43 | Emergency Room Report ---
History of Present Illness General Chief Complaint: Gastrointestinal Bleed Source: Patient Present Illness HPI Patient is 78-year-old female who presented after increased rectal bleeding for the past 4 days. Patient reportedly had been having increased abdominal discomfort. The patient reports having prior history of diabetes. She reports being off of her anticoagulants and states he has not been taking medications for the last 2 days. Allergies: Coded Allergies: No Known Allergies (Verified , 05/29/09) Patient History Last Menstrual Period: NA Reviewed Nursing Documentation: PMH: Agreed; PSxH: Agreed Nursing Documentation-PMH Past Medical History: No History, Except For Hx Cardiac Problems: Yes Hx Hypertension: Yes Hx Pacemaker: Yes Hx Asthma: Yes Hx Diabetes: Yes - Type 2 DM Hx Cancer: No Hx Gastrointestinal Problems: No Hx Dialysis: No Hx Neurological Problems: Yes Hx Seizures: Yes - LAST EPISODE 2012 Hx Memory Loss: Yes Hx Dizziness: Yes Physical Exam Vital Signs Date Time Temp Pulse Resp B/P (MAP) Pulse Ox O2 Delivery O2 Flow Rate FiO2 05/10/18 14:44 98.7 76 18 154/80 97 Room Air 98.8 Sp02 EP Interpretation: reviewed, normal General Appearance: normal inspection, no apparent distress, alert, GCS 15, Chronically Ill Head: atraumatic ENT: normal ENT inspection, hearing grossly normal, normal voice Neck: normal inspection, full range of motion, supple, no bony tend Respiratory: normal inspection, lungs clear, normal breath sounds, no respiratory distress, no retraction, no wheezing Cardiovascular #1: regular rate, rhythm, no edema Gastrointestinal: normal bowel sounds, non tender, soft, no guarding, no hernia , tenderness - mild diffuse tenderness Rectal: other - brown stool Genitourinary: no CVA tenderness Musculoskeletal: normal inspection, back normal, other - right bka Neurologic: normal inspection, alert, oriented x3, responsive, greaser helper III-XII nml as tested, speech normal Psychiatric: normal inspection, judgement/insight normal, mood/affect normal Skin: normal inspection, normal color, no rash Medical Decision Making Diagnostic Impression: Primary Impression: Abdominal pain Additional Impression: GIB (gastrointestinal bleeding) ER Course The patient presented for rectal bleeding. The differential diagnosis included but was not limited to ulcer, diverticulosis, aortic aneurysm, arteriovenous formation, coagulopathy, cancer among others. Because of complexity of patient' s case laboratory testing and imaging studies were ordered.The laboratory testing was noted to have adequate hemoglobin. Patient was started on IV fluids.The patient was given IV antibiotics for urinary infection. The patient was discussed with Dr. Matthew Tinajero for covering physician. Labs Test 05/10/18 13:35 05/10/18 16:25 White Blood Count 4.3 K/UL (4.8-10.8) Red Blood Count 3.99 M/UL (4.20-5.40) Hemoglobin 12.6 G/DL (12.0-16.0) Hematocrit 39.2 % (37.0-47.0) Mean Corpuscular Volume 98 FL (80-99) Mean Corpuscular Hemoglobin 31.6 PG (27.0-31.0) Mean Corpuscular Hemoglobin Concent 32.2 G/DL (32.0-36.0) Red Cell Distribution Width 13.8 % (11.6-14.8) Platelet Count 183 K/UL (150-450) Mean Platelet Volume 10.0 FL (6.5-10.1) Neutrophils (%) (Auto) 67.2 % (45.0-75.0) Lymphocytes (%) (Auto) 22.4 % (20.0-45.0) Monocytes (%) (Auto) 8.5 % (1.0-10.0) Eosinophils (%) (Auto) 0.2 % (0.0-3.0) Basophils (%) (Auto) 1.6 % (0.0-2.0) Prothrombin Time 10.8 SEC (9.30-11.50) Prothromb Time International Ratio 1.1 (0.9-1.1) Activated Partial Thromboplast Time 28 SEC (23-33) Sodium Level 136 MMOL/L (136-145) Potassium Level 3.5 MMOL/L (3.5-5.1) Chloride Level 105 MMOL/L (98-107) Carbon Dioxide Level 21 MMOL/L (21-32) Anion Gap 10 mmol/L (5-15) Blood Urea Nitrogen 11 mg/dL (7-18) Creatinine 0.8 MG/DL (0.55-1.30) Estimat Glomerular Filtration Rate mL/min (>60) Glucose Level 98 MG/DL (74-106) Calcium Level 9.5 MG/DL (8.5-10.1) Total Bilirubin 1.1 MG/DL (0.2-1.0) Direct Bilirubin 0.3 MG/DL (0.0-0.3) Aspartate Amino Transf (AST/SGOT) 17 U/L (15-37) Alanine Aminotransferase (ALT/SGPT) 10 U/L (12-78) Alkaline Phosphatase 90 U/L (46-116) Total Protein 8.7 G/DL (6.4-8.2) Albumin 3.8 G/DL (3.4-5.0) Globulin 4.9 g/dL Albumin/Globulin Ratio 0.8 (1.0-2.7) Lipase 101 U/L (73-393) Urine Color Brown Urine Appearance Slightly cloudy Urine pH 7 (4.5-8.0) Urine Specific [place] 1.010 (1.005-1.035) Urine Protein 3+ (NEGATIVE) Urine Glucose (UA) Negative (NEGATIVE) Urine Ketones Negative (NEGATIVE) Urine Occult Blood 3+ (NEGATIVE) Urine Nitrite Negative (NEGATIVE) Urine Bilirubin 2+ (NEGATIVE) Urine Ictotest Positive (NEGATIVE) Urine Urobilinogen 8 MG/DL (NORMAL) Urine Leukocyte Esterase 3+ (NEGATIVE) Urine RBC 5-10 /HPF (0 - 2) Urine WBC 10-15 /HPF (0 - 2) Urine Squamous Epithelial Cells Few /LPF (NONE/OCC) Urine Amorphous Sediment Few /LPF (NONE) Urine Bacteria Many /HPF (NONE) Last Vital Signs Date Time Temp Pulse Resp B/P (MAP) Pulse Ox O2 Delivery O2 Flow Rate FiO2 05/10/18 14:44 98.7 76 18 154/80 97 Room Air 98.8 Status: unchanged Disposition: ADMITTED INPATIENT Condition: Serious Referrals: NOT CHOSEN IPA/,REFERRING (PCP) Joseph Mckeon MD May 10, 2018 15:43
[2018-05-10 15:57] LABS: BASOPHILS % (AUTO) 1.6 % (0.0-2.0); EOSINOPHILS % (AUTO) 0.2 % (0.0-3.0); HEMATOCRIT 39.2 % (37.0-47.0); HEMOGLOBIN 12.6 G/DL (12.0-16.0); LYMPHOCYTES % (AUTO) 22.4 % (20.0-45.0); MEAN CORPUSCULAR VOLUME 98 FL (80-99); MONOCYTES % (AUTO) 8.5 % (1.0-10.0); NEUTROPHILS % (AUTO) 67.2 % (45.0-75.0); PLATELET COUNT 183 K/UL (150-450); RED BLOOD COUNT 3.99 M/UL (4.20-5.40); RED CELL DISTRIBUTION WIDTH 13.8 % (11.6-14.8); WHITE BLOOD COUNT 4.3 K/UL (4.8-10.8)
[2018-05-10 16:00] VITALS: BP 172/73
[2018-05-10 16:04] LABS: ANION GAP 10 mmol/L (5-15); BLOOD UREA NITROGEN 11 mg/dL (7-18); CALCIUM 9.5 MG/DL (8.5-10.1); CARBON DIOXIDE 21 MMOL/L (21-32); CHLORIDE 105 MMOL/L (98-107); CREATININE 0.8 MG/DL (0.55-1.30); POTASSIUM 3.5 MMOL/L (3.5-5.1); SODIUM 136 MMOL/L (136-145)
[2018-05-10 16:10] LABS: INR 1.1 (0.9-1.1)
[2018-05-10 16:14] LABS: ALANINE AMINOTRANSFERASE 10 U/L (12-78); ALBUMIN 3.8 G/DL (3.4-5.0); ALBUMIN/GLOBULIN RATIO 0.8 (1.0-2.7); ALKALINE PHOSPHATASE 90 U/L (46-116); ASPARTATE AMINO TRANSFERASE 17 U/L (15-37); BILIRUBIN,TOTAL 1.1 MG/DL (0.2-1.0)
[2018-05-10 16:23] LABS: BILIRUBIN,DIRECT 0.3 MG/DL (0.0-0.3)
[2018-05-10] MEDS ORDERED: Morphine Sulfate 2mg/ml Inj(IV/IM USE ONLY) IVP ONE (16:30)
[2018-05-10 16:57] LABS: APPEARANCE,URINE SLIGHTLY CLOUDY; BILIRUBIN, URINE 2+ (NEGATIVE); COLOR,URINE BROWN; GLUCOSE, URINE (UA) NEGATIVE (NEGATIVE); KETONES,URINE NEGATIVE (NEGATIVE); LEUKOCYTE ESTERASE ,URINE 3+ (NEGATIVE); NITRITE,URINE NEGATIVE (NEGATIVE); PH,URINE 7 (4.5-8.0); PROTEIN,URINE 3+ (NEGATIVE); UROBILINOGEN,URINE 8 MG/DL (NORMAL)
[2018-05-10 17:00] VITALS: BP 174/76
[2018-05-10] MEDS ORDERED: cefTRIAXone 1 GM in D5W 55 ML IVPB ONE (17:45)
[2018-05-10 18:00] VITALS: BP 167/82
[2018-05-10] MEDS ORDERED: Artificial Tears 1.4% Op Soln BOTH EYES PRN (19:00)
[2018-05-10 20:00] VITALS: BP 151/86
[2018-05-10] MEDS: MS Contin 15mg tab ORAL SCH (20:42)
[2018-05-10] MEDS: HydrALAZINE 25mg tab ORAL SCH (21:43)
--- NOTE | 2018-05-10 22:30 | Consultation ---
DATE OF CONSULTATION: 05/10/2018 NEPHROLOGY CONSULTATION CONSULTING PHYSICIAN: Kade Cochran M.D. REFERRING PHYSICIAN: Matthew Tinajero M.D. REASON FOR CONSULTATION: Gastrointestinal bleeding in a patient with a kidney transplant. HISTORY OF PRESENT ILLNESS: The patient is a 78-year-old lady with kidney transplant, who presents with rectal bleeding, bright red, and also is maroon in color. She has generalized abdominal pain and perhaps some rectal itching and hemorrhoids as well. The patient was recently in a rehabilitation facility and apparently left that facility and ran out of all of her medications recently. She has been taking warfarin in the past for DVT. She has generally had a stable kidney transplant for many years, I believe more than 15 years, but in the past she has had episodes of acute kidney injury, likely related toxicity of either cyclosporine or tacrolimus in the past. She has also had recurrent UTIs and is complaining of some dysuria, but no fever or chills. MEDICAL HISTORY: She has had severe peripheral vascular disease with multiple surgeries including a right below-knee amputation. She has chronic pain syndrome. PAST SURGICAL HISTORY: Include kidney transplant, multiple dialysis vascular access procedures, permanent pacemaker, amputation of the right leg below the knee, and procedures for ulcers in lower extremities. MEDICATIONS: She cannot give an accurate list, but a prior to admission med list includes amlodipine, Tylenol, azathioprine 75 mg daily, clonidine p.r.n., cyclosporine 100 mg b.i.d., Artificial Tears, Colace, ferrous sulfate, fludrocortisone, Lasix, guaifenesin, hydralazine, and recently , loperamide, morphine, nitrofurantoin, oxycodone, Protonix, pregabalin, Xarelto, zinc, and [place]. ALLERGIES: None known. HABITS: She is a nondrinker and nonsmoker. No use of illicit drugs. SYSTEM REVIEW: HEENT: Vision and hearing are well preserved. ENDOCRINE: Glucose intolerance in the past, worse when she was taking steroids, currently not required any treatment. No thyroid disease. PULMONARY: No asthma, TB, or chronic cough. CARDIAC: Permanent pacemaker and hypertensive heart disease. No definite myocardial infarction. She has had atypical chest pain. GASTROINTESTINAL: She has had intermittent diarrhea. She has had prior C. difficile. She has had recurrent nausea and vomiting. GENITOURINARY: She has had recurrent UTIs. No kidney stones or obstruction. She has urinary incontinence. NEUROLOGIC: No definite CVA or syncope. MUSCULOSKELETAL: She has chronic pain syndrome. PHYSICAL EXAMINATION: GENERAL: The patient was lying in bed, chronically ill-appearing, but in no acute distress. VITAL SIGNS: The vital signs are reviewed on the computer. Temperature 98.7, pulse 79, respirations 16, and blood pressure 167/82. HEENT: Sclerae are nonicteric. Ocular motions intact in all directions. Oral mucosa moist. NECK: No adenopathy. LUNGS: Clear. HEART: Rhythm is regular. I hear no murmur. ABDOMEN: Soft. No organomegaly. Renal transplant is in the right iliac fossa. Mildly tender. EXTREMITIES: No edema, cyanosis, or clubbing. There is a right below-knee amputation. NEUROLOGIC: She is alert and oriented. Cranial nerves are intact. PERTINENT LABORATORY DATA: Show white count of 4.3, hemoglobin 12.6, and platelet 183,000. Sodium 136, potassium 3.5, BUN 11, and creatinine 0.8. Albumin 3.8. Urine shows 10 to 15 white cells, 5 to 10 red cells per high-power field, and few epithelial cells. IMPRESSION: 1. Gastrointestinal bleed likely secondary to anticoagulant, possible underlying hemorrhoids, underlying gastrointestinal pathology. 2. Renal transplant status with stable function. 3. Incontinence. 4. Recurrent urinary tract infections with pyuria on this admission. 5. Chronic pain syndrome. 6. Right below-knee amputation. 7. Hypertension. PLAN: The patient will be watched closely. Try to avoid nephrotoxicity of medications. We will try to get the urine culture and watch closely her in view of recurring UTIs. We will treat her with antiulcer regimen pending further gastrointestinal evaluation. Kade Cochran M.D. DR: SHANON JOB#: [id number] CC:
[2018-05-11] VITALS: BP 155/84
[2018-05-11] MEDS: NS w/KCl 20mEq 1,000 ML IV SCH ×3 (00:07→20:07)
--- NOTE | 2018-05-11 03:45 | Consultation ---
DATE OF CONSULTATION: 05/10/2018 CARDIOLOGY CONSULTATION CONSULTING PHYSICIAN: Matthew Tinajero M.D. REQUESTING PHYSICIAN: John Red M.D. REASON FOR CONSULTATION: GI bleeding in the setting of cardiomyopathy and permanent pacemaker in a patient on chronic anticoagulation. HISTORY OF PRESENT ILLNESS: This 78-year-old female presented to the hospital complaining of bright red blood per rectum. She also had some for maroon-colored stools mixed with feces. She denied abdominal pain. She has not had any nausea, vomiting, or diarrhea. She has not had any rectal instrumentation. The patient recently left the prison facility and has not had her medications. She has been on anticoagulation for recurring DVT, most recently with rivaroxaban. The patient's rectal bleeding has been intermittent, but worse today and has not been associated with any dizziness. PAST MEDICAL HISTORY: 1. Peripheral artery disease. 2. Right BKA. 3. Insulin requiring diabetes mellitus. 4. Renal transplant. 5. Permanent pacemaker. 6. Hypertension. 7. History of recurrent urinary tract infections. 8. COPD. MEDICATIONS: Prior to admission, reviewed and reconciled. ALLERGIES: None. SOCIAL HISTORY: No alcohol or substance abuse. There is a history of smoking. REVIEW OF SYSTEMS: There is no history of retinopathy. She is hard of hearing. Her diabetes is managed with diet and when she is on steroids, insulin as required by sliding scale. There is no history of asthma. She does have a history of DVT. She has been on anticoagulation. Her permanent pacemaker was interrogated within the last six months and had adequate battery life. There is no history of myocardial infarction. She has a history of hypertension. Her echocardiogram done in the last six months revealed normal ejection fraction with concentric hypertrophy. There is no history of thyroid disorder. She has not had any prior stroke. She does have chronic pain due to her neuropathy. Her kidney transplant has been functioning adequately with no acute rejection, although she has developed toxicity to her cyclosporine in the past. PHYSICAL EXAMINATION: GENERAL: Ill-appearing, no acute distress. VITAL SIGNS: Blood pressure 167/82, pulse 79, respirations 16, and afebrile. HEENT: Temporal wasting. Arcus senilis. Pale conjunctivae. Oropharynx clear. Mucous membranes dry. NECK: Supple. Jugular venous pressure normal. No adenopathy. LUNGS: Clear. Chest wall with pacemaker pocket site clean and dry. CARDIAC: Regular rhythm and rate. Normal S1 and S2 with a fourth heart sound. No murmur. ABDOMEN: Soft and nontender. Renal transplant in the right iliac fossa, mildly tender. EXTREMITIES: Without clubbing or cyanosis. No edema. Right BKA stump is noted. NEUROLOGIC: Reveals sensory deficits, but no focal motor abnormalities. LABORATORY AND DIAGNOSTIC DATA: EKG reveals atrial pacing with no other abnormalities. Chest x-ray, no acute process. White count 4.3 and hemoglobin 12.6. Potassium 3.5, BUN 11, and creatinine 0.8. Urinalysis with 10 to 15 white cells. IMPRESSION: 1. Acute gastrointestinal bleeding, rivaroxaban-associated coagulopathy due to deep venous thrombosis. 2. Permanent pacemaker. 3. Hypertensive heart disease with elevated blood pressure. 4. Chronic diastolic congestive heart failure. 5. Renal transplant. 6. Incontinence with history of multi-drug resistant urinary tract infection. 7. Right [id number] amputation due to peripheral artery disease. 8. Chronic pain syndrome due to peripheral neuropathy. PLAN: 1. Hold anti-platelet and anticoagulant. 2. Serial hemoglobin. 3. GI consultation. 4. Maintain adequate hydration. 5. Monitor volume status and cardiorenal parameters. 6. Antihypertensive therapy will be optimized, but without increasing the risk of orthostatic changes. Matthew Tinajero M.D. DR: VIJAY JOB#: [id number] CC:
[2018-05-11 04:00] VITALS: BP 152/78
[2018-05-11] MEDS: HydrALAZINE 25mg tab ORAL SCH ×3 (05:47→21:41)
[2018-05-11 07:21] LABS: HEMATOCRIT 35.3 % (37.0-47.0); HEMOGLOBIN 11.6 G/DL (12.0-16.0); MEAN CORPUSCULAR VOLUME 98 FL (80-99); PLATELET COUNT 154 K/UL (150-450); RED CELL DISTRIBUTION WIDTH 13.7 % (11.6-14.8); WHITE BLOOD COUNT 3.1 K/UL (4.8-10.8)
[2018-05-11 07:41] LABS: ALANINE AMINOTRANSFERASE 7 U/L (12-78); ALBUMIN 3.1 G/DL (3.4-5.0); ALBUMIN/GLOBULIN RATIO 0.7 (1.0-2.7); ALKALINE PHOSPHATASE 77 U/L (46-116); ANION GAP 10 mmol/L (5-15); ASPARTATE AMINO TRANSFERASE 17 U/L (15-37); BILIRUBIN,TOTAL 0.8 MG/DL (0.2-1.0); BLOOD UREA NITROGEN 10 mg/dL (7-18); CALCIUM 8.9 MG/DL (8.5-10.1); CARBON DIOXIDE 22 MMOL/L (21-32); CHLORIDE 110 MMOL/L (98-107); CREATININE 0.9 MG/DL (0.55-1.30); SODIUM 142 MMOL/L (136-145)
--- NOTE | 2018-05-11 08:16 | General Progress Note ---
Assessment/Plan Assessment/Plan GI CONSULT Dictation to follow Will schedule for EGD/Colon Thank you Kalin Hall MD Subjective Allergies: Coded Allergies: No Known Allergies (Verified , 05/29/09) Objective Last 24 Hour Vital Signs Date Time Temp Pulse Resp B/P (MAP) Pulse Ox O2 Delivery O2 Flow Rate FiO2 05/11/18 05:47 152/78 05/11/18 04:00 97.9 91 19 152/78 (102) 99 97.9 05/11/18 04:00 67 05/11/18 00:00 98.1 89 20 155/84 (107) 97 98.1 05/11/18 00:00 90 05/10/18 22:13 Room Air 05/10/18 21:43 161/87 05/10/18 21:00 Room Air 05/10/18 20:00 76 05/10/18 20:00 97.9 76 20 151/86 (107) 98 97.9 05/10/18 19:01 79 16 167/82 96 Room Air 05/10/18 18:43 134/68 05/10/18 18:00 79 16 167/82 96 Room Air 05/10/18 17:28 98.7 05/10/18 17:00 77 15 174/76 96 Room Air 05/10/18 16:00 86 21 172/73 95 Room Air 05/10/18 14:44 98.7 76 18 154/80 97 Room Air 98.8 Intake and Output 05/10/18 05/11/18 19:00 07:00 Intake Total 0 ml 808 ml Balance 0 ml 808 ml Intake Oral 0 ml 120 ml IV Total 688 ml # Bowel Movements 1 Laboratory Tests 05/10/18 13:35: White Blood Count 4.3L, Red Blood Count 3.99L, Hemoglobin 12.6, Hematocrit 39.2 , Mean Corpuscular Volume 98, Mean Corpuscular Hemoglobin 31.6H, Mean Corpuscular Hemoglobin Concent 32.2, Red Cell Distribution Width 13.8, Platelet Count 183, Mean Platelet Volume 10.0, Neutrophils (%) (Auto) 67.2, Lymphocytes ( %) (Auto) 22.4, Monocytes (%) (Auto) 8.5, Eosinophils (%) (Auto) 0.2, Basophils (%) (Auto) 1.6, Prothrombin Time 10.8, Prothromb Time International Ratio 1.1, Activated Partial Thromboplast Time 28, Sodium Level 136, Potassium Level 3.5, Chloride Level 105, Carbon Dioxide Level 21, Anion Gap 10, Blood Urea Nitrogen 11, Creatinine 0.8, Estimat Glomerular Filtration Rate , Glucose Level 98, Calcium Level 9.5, Total Bilirubin 1.1H, Direct Bilirubin 0.3, Aspartate Amino Transf (AST/SGOT) 17, Alanine Aminotransferase (ALT/SGPT) 10L, Alkaline Phosphatase 90, Total Protein 8.7H, Albumin 3.8, Globulin 4.9, Albumin/Globulin Ratio 0.8L, Lipase 101 05/10/18 16:25: Urine Color Brown, Urine Appearance Slightly cloudy, Urine pH 7, Urine Specific [place] 1.010, Urine Protein 3+H, Urine Glucose (UA) Negative, Urine Ketones Negative, Urine Occult Blood 3+H, Urine Nitrite Negative, Urine Bilirubin 2+H, Urine Ictotest Positive, Urine Urobilinogen 8H, Urine Leukocyte Esterase 3+H, Urine RBC 5-10H, Urine WBC 10-15H, Urine Squamous Epithelial Cells Few, Urine Amorphous Sediment FewH, Urine Bacteria ManyH 05/11/18 07:00: White Blood Count 3.1L, Red Blood Count 3.60L, Hemoglobin 11.6L, Hematocrit 35.3L, Mean Corpuscular Volume 98, Mean Corpuscular Hemoglobin 32.3H, Mean Corpuscular Hemoglobin Concent 32.9, Red Cell Distribution Width 13.7, Platelet Count 154, Mean Platelet Volume 8.4, Neutrophils (%) (Auto) , Lymphocytes (%) ( Auto) , Monocytes (%) (Auto) , Eosinophils (%) (Auto) , Basophils (%) (Auto) , Sodium Level 142, Potassium Level 4.0, Chloride Level 110H, Carbon Dioxide Level 22, Anion Gap 10, Blood Urea Nitrogen 10, Creatinine 0.9, Estimat Glomerular Filtration Rate , Glucose Level 84, Calcium Level 8.9, Total Bilirubin 0.8, Aspartate Amino Transf (AST/SGOT) 17, Alanine Aminotransferase ( ALT/SGPT) 7L, Alkaline Phosphatase 77, Total Protein 7.7, Albumin 3.1L, Globulin 4.6, Albumin/Globulin Ratio 0.7L, Differential Total Cells Counted 100 , Neutrophils % (Manual) 51, Lymphocytes % (Manual) 35, Monocytes % (Manual) 13H , Eosinophils % (Manual) 1, Basophils % (Manual) 0, Band Neutrophils 0, Platelet Estimate Adequate, Platelet Morphology Normal, Red Blood Cell Morphology Normal, Magnesium Level 1.9, Pro-B-Type Natriuretic Peptide 2466H Height (Feet): 5 Height (Inches): 6.00 Weight (Pounds): 145 Kalin Hall MD May 11, 2018 08:16
[2018-05-11] MEDS: azaTHIOprine 50 MG TAB ORAL SCH (08:20)
[2018-05-11] MEDS: cycloSPORINE 100mg cap ORAL SCH ×2 (08:20→17:06)
[2018-05-11] MEDS: MS Contin 15mg tab ORAL SCH ×2 (08:20→20:31)
[2018-05-11] MEDS: Lyrica 50mg cap ORAL SCH ×2 (08:20→17:46)
[2018-05-11] MEDS ORDERED: Sorbitol Solution UD 30ml ORAL SCH ×2 (08:30→09:30)
[2018-05-11 08:50] VITALS: BP 159/86
[2018-05-11] MEDS ORDERED: Artificial Tears 1.4% Op Soln BOTH EYES SCH (09:00)
[2018-05-11] MEDS: HYDROcodone/Acetamin 10/325 tab ORAL PRN ×2 (11:39→17:07)
[2018-05-11 12:57] VITALS: BP 142/77
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
[2018-05-11] MEDS: Piperacillin/Tazobactam 3.375 GM in D5W 110 ML IVPB SCH ×2 (14:54→21:40)
[2018-05-11 16:27] VITALS: BP 143/74
[2018-05-11 20:00] VITALS: BP 125/73
--- NOTE | 2018-05-11 22:15 | History and Physical Report ---
DATE OF ADMISSION: 05/10/2018 CHIEF COMPLAINT: GI bleed. HISTORY OF PRESENT ILLNESS: The patient is an 78-year-old female. She has a prior history of a right BKA, peripheral artery disease, kidney transplant, and hypertension. She has a history of conduction system disease, status post pacemaker and a kidney transplant. She presented with complaints of one to two days of maroon-colored stools. She denies any abdominal pain. No hematemesis. On evaluation in the emergency room, the patient's hemoglobin was 12.6 in light of , but and the patient's vital signs are stable. The patient is on anticoagulation therapy for prior history of DVT. PAST MEDICAL HISTORY: As above. PAST SURGICAL HISTORY: Kidney transplant and a right BKA. CURRENT MEDICATIONS: Reconciled and reviewed. ALLERGIES: None. FAMILY HISTORY: None. SOCIAL HISTORY: There is no known history of tobacco, ethanol, or drugs. REVIEW OF SYSTEMS: GENERAL: No fevers or chills. HEENT: No headaches or visual changes. CARDIOPULMONARY: No chest pain or shortness of breath. GASTROINTESTINAL: No nausea or vomiting. GENITOURINARY: No urgency or frequency. MUSCULOSKELETAL: History of phantom limb pain. NEUROLOGIC: No seizures. PHYSICAL EXAMINATION: VITAL SIGNS: Temperature 98 degrees, blood pressure 130/76, pulse 80, and respirations 20. GENERAL: The patient is well developed, no apparent distress. HEART: Regular rate and rhythm. LUNGS: Lungs are clear. ABDOMEN: Soft, nontender and nondistended. EXTREMITIES: Without cyanosis. 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 LABORATORY AND DIAGNOSTIC DATA: Hemoglobin 12.6 and now 11.6. Sodium 136, and potassium 3.5. Coagulations are normal. UA showed 10 to 15 wbc's. ASSESSMENT: This is a pleasant female with history of kidney transplant, hypertension, hypertensive heart disease, pacemaker, history of DVT admitted with complaints of GI bleed. PROBLEM LIST: 1. GI bleed. 2. History of kidney transplant. 3. Hypertension. 4. History of renal insufficiency and chronic kidney disease. 5. History of phantom limb pain. PLAN: 1. Hold antiplatelet therapy. 2. Anticoagulants. 3. Monitor serial CBCs. 4. GI consultation. 5. Continue outpatient cardiac regimen. 6. Renal, Cardiology, and GI consults have been obtained. John Red M.D. DR: NATHAN JOB#: [id number] CC:
[2018-05-12] VITALS: BP 126/68
--- NOTE | 2018-05-12 03:15 | Progress Note ---
DATE: 05/11/2018 CARDIOLOGY PROGRESS NOTE SUBJECTIVE: No new bleeding. He still has baseline back pain. Blood pressure range elevated. OBJECTIVE: VITAL SIGNS: Blood pressure 152/78 to 174/76, heart rate 79, and respiratory rate 16. Afebrile. LUNGS: Clear. CARDIAC: Regular. Normal S1, S2 with a fourth heart sound. Chest wall with pacemaker pocket. ABDOMEN: Soft. No focal tenderness. EXTREMITIES: With left BKA. LABORATORY DATA: White count 3.1 and hemoglobin 11.6. Chemistry panel within normal limits. Magnesium 1.9 and Pro-natriuretic peptide 2466. IMPRESSION: 1. Gastrointestinal bleed. 2. Acute on chronic diastolic congestive heart failure. 3. Renal transplant. 4. Permanent pacemaker. 5. Hypertensive heart disease with labile blood pressure. 6. Extended-spectrum beta-lactamases urinary tract infection. PLAN: 1. Antimicrobials. 2. Serial hemoglobin. 3. Panendoscopy. 4. Titrate antihypertensives. 5. No antiplatelet therapy for now. 6. Remains tenuous and high risk due to multiorgan system disease. 7. Symptom-guided pain control. Matthew Tinajero M.D. DR: LALY JOB#: [id number] CC:
[2018-05-12 04:00] VITALS: BP 128/67
--- NOTE | 2018-05-12 05:00 | Consultation ---
DATE OF CONSULTATION: 05/11/2018 GASTROENTEROLOGY CONSULTATION CHIEF COMPLAINT: I was asked to see this patient by Dr. Matthew Tinajero for evaluation of gastrointestinal bleeding. HISTORY OF PRESENT ILLNESS: The patient is a pleasant 78-year-old woman with multiple medical problems including a renal transplant and amputation, who comes into the hospital with a five-day history of hematochezia. The patient states that this has been noted intermittently for the past two years, but she has never had a colonoscopy. She does have some abdominal discomfort throughout her stomach. She has had no nausea or vomiting. PAST MEDICAL HISTORY: Notable for history of peripheral vascular disease, status post right below-knee amputation, insulin-dependent diabetes mellitus, renal failure, status post renal transplant, arrhythmia, status post pacemaker placement, hypertension, and chronic obstructive pulmonary disease. ALLERGIES: None. MEDICATIONS: See chart list for details. FAMILY HISTORY: Noncontributory. SOCIAL HISTORY: The patient resides in a custodial. She does have a history of smoking, but she does not drink alcohol. REVIEW OF SYSTEMS: Otherwise negative. PHYSICAL EXAMINATION: GENERAL: A thin woman, seen in her room. HEENT: Normocephalic and atraumatic. Oropharynx clear. NECK: Supple. CHEST: Clear to auscultation. CARDIOVASCULAR: Revealed a regular rate. ABDOMEN: Soft and flat with mild diffuse tenderness to palpation without guarding or rebound. EXTREMITIES: Revealed right below-knee amputation. NEUROLOGIC: Grossly nonfocal. LABORATORY DATA: Noted. ASSESSMENT: This patient presents with hematochezia, maroon stools of unclear etiology. Differential diagnosis would include both upper and lower gastrointestinal pathologies such as diverticular bleeding or hemorrhoidal bleeding or peptic ulcer . The patient was apparently on Xarelto as an outpatient and this has been held with the idea to hold this for approximately 72 hours before doing endoscopic procedure. I will therefore plan on doing this procedure on once the patient has been off of this medication for at least 72 hours. The indications, risks, alternatives, and possible complications of endoscopy and colonoscopy were explained to the patient and informed consent was obtained. RECOMMENDATIONS: 1. Keep the patient on clear liquid diet. 2. Two-day gastrointestinal tract preparation. 3. Hold systemic anticoagulation. 4. Endoscopy and colonoscopy on . Thank you for asking me to participate in the care of this patient. Kalin Hall M.D. DR: PAPO JOB#: [id number] CC: [place]
[2018-05-12] MEDS: NS w/KCl 20mEq 1,000 ML IV SCH ×2 (05:19→15:52)
[2018-05-12] MEDS: Piperacillin/Tazobactam 3.375 GM in D5W 110 ML IVPB SCH ×3 (05:31→21:51)
[2018-05-12] MEDS: HydrALAZINE 25mg tab ORAL SCH ×3 (05:32→21:50)
[2018-05-12 07:37] LABS: HEMATOCRIT 34.3 % (37.0-47.0); HEMOGLOBIN 11.1 G/DL (12.0-16.0); MEAN CORPUSCULAR VOLUME 99 FL (80-99); PLATELET COUNT 136 K/UL (150-450); RED BLOOD COUNT 3.45 M/UL (4.20-5.40); RED CELL DISTRIBUTION WIDTH 13.5 % (11.6-14.8); WHITE BLOOD COUNT 3.1 K/UL (4.8-10.8)
[2018-05-12 07:53] LABS: ANION GAP 10 mmol/L (5-15); BLOOD UREA NITROGEN 7 mg/dL (7-18); CALCIUM 8.8 MG/DL (8.5-10.1); CARBON DIOXIDE 21 MMOL/L (21-32); CHLORIDE 110 MMOL/L (98-107); CREATININE 0.9 MG/DL (0.55-1.30); POTASSIUM 4.4 MMOL/L (3.5-5.1); SODIUM 141 MMOL/L (136-145)
[2018-05-12 08:00] VITALS: BP 141/81
[2018-05-12] MEDS ORDERED: Nulytely 4L ORAL SCH (08:00)
[2018-05-12] MEDS: Lyrica 50mg cap ORAL SCH ×2 (09:11→18:42)
[2018-05-12] MEDS: Metoprolol Succinate XL 25mg tab ORAL SCH (09:12)
[2018-05-12] MEDS: cycloSPORINE 100mg cap ORAL SCH ×2 (09:12→18:42)
[2018-05-12] MEDS: MS Contin 15mg tab ORAL SCH ×2 (09:12→21:50)
[2018-05-12] MEDS: azaTHIOprine 50 MG TAB ORAL SCH (09:13)
[2018-05-12 12:00] VITALS: BP 144/82
--- NOTE | 2018-05-12 14:13 | Consultation ---
History of Present Illness General Date patient seen: May 12, 2018 Chief Complaint: Gastrointestinal Bleed Present Illness HPI 78-year-old female with hx of depression and anxiety presented to the hospital complaining of bright red blood per rectum. the pt stated that she was irritated and stated that she wanted something to calm her down. the pt denied depressive sxs however appeared angry and agitated. Allergies: Coded Allergies: No Known Allergies (Verified , 05/29/09) Medication History Scheduled Acetaminophen (Acetaminophen 8 Hour), 650 MG ORAL Q6H, (Reported) Amlodipine Besylate (Norvasc), 5 MG ORAL DAILY Amlodipine Besylate (Norvasc), 5 MG ORAL DAILY Amlodipine Besylate* (Amlodipine Besylate*), 5 MG ORAL DAILY, (Reported) Ascorbic Acid* (Ascorbic Acid*), 500 MG ORAL DAILY, (Reported) Azathioprine (Azathioprine), 75 MG ORAL DAILY Azathioprine* (Imuran*), 75 MG PO DAILY, (Reported) Azathioprine* (Imuran*), 50 MG PO DAILY, (Reported) Cetirizine Hcl* (Zyrtec*), 10 MG ORAL DAILY, (Reported) Clonidine Hcl* (Catapres*), 0.1 MG ORAL EVERY 6 HOURS, (Reported) Cyclosporine* (Cyclosporine*), 100 MG PO BID, (Reported) Docusate Sodium* (Colace*), 100 MG ORAL TWICE A DAY Ferrous Sulfate (Feosol), 325 MG ORAL TWICE A DAY Fludrocortisone Acetate (Fludrocortisone Acetate), 0.1 MG ORAL DAILY Fludrocortisone Acetate (Fludrocortisone Acetate), 0.1 MG ORAL DAILY Furosemide* (Lasix*), 40 MG ORAL DAILY, (Reported) Furosemide* (Lasix*), 40 MG ORAL DAILY Guaifenesin (Guaifenesin), 200 MG ORAL Q6H, (Reported) Hydralazine Hcl* (Hydralazine Hcl*), 25 MG ORAL EVERY 8 HOURS Hydralazine Hcl* (Hydralazine Hcl*), 25 MG ORAL EVERY 8 HOURS, (Reported) Hydralazine Hcl* (Hydralazine Hcl*), 25 MG ORAL EVERY 8 HOURS Levofloxacin* (Levaquin*), 500 MG ORAL DAILY, (Reported) Meropenem (Merrem), 500 MG IVPB Q8HR, (Reported) Mirtazapine* (Mirtazapine*), 7.5 MG ORAL BEDTIME, (Reported) Morphine Sulfate (Morphine Sulfate), 15 MG ORAL EVERY 12 HOURS, (Reported) Morphine Sulfate (Morphine Sulfate), 15 MG ORAL EVERY 12 HOURS Nitrofurantoin Macrocrystal (Nitrofurantoin), 100 MG PO EVERY 12 HOURS, ( Reported) Pantoprazole* (Protonix*), 40 MG ORAL DAILY Pantoprazole* (Pantoprazole*), 40 MG ORAL DAILY, (Reported) Pantoprazole* (Protonix*), 40 MG ORAL DAILY Polyvinyl Alcohol (Akwa Tears), 1 DROP BOTH EYES TID, (Reported) Potassium Chloride (Potassium Chloride), 20 MEQ ORAL TWICE A DAY, (Reported) Pregabalin (Lyrica), 100 MG ORAL BID Pregabalin (Lyrica), 100 MG ORAL THREE TIMES A DAY, (Reported) Pregabalin (Lyrica), 100 MG ORAL BID Rivaroxaban (Xarelto), 15 MG ORAL QPM Rivaroxaban (Xarelto), 15 MG ORAL QPM Temazepam (Restoril*), 30 MG ORAL BEDTIME, (Reported) [cycloSPORINE], 100 MG ORAL BID Scheduled PRN Dextran 70/Hypromellose (Artificial Tears Eye Drops*), 1 DROP BOTH EYES TID PRN for Dry Eyes, (Reported) Hydrocodone/Acetaminophen (Hydrocodon-Acetaminophn 10-325), 1 TAB ORAL Q4H PRN for For Pain, (Reported) Hydromorphone Hcl/Pf (Hydromorphone 2 Mg/Ml Syringe*), 2 MG IJ Q4HR PRN for Moderate Breakthru Pain (5-7), (Reported) Loperamide Hcl (Anti-Diarrhea), 2 MG PO Q4HR PRN for Diarrhea, (Reported) Oxycodone Hcl/Acetaminophen 10-325 Mg Tablet (Percocet 10-325 Mg Tablet*), 1 TAB ORAL Q4H PRN for For Pain, (Reported) [HYDROcodone/Acetamin 10/325], 1 TAB ORAL Q4H PRN Miscellaneous Medications Fludrocortisone Acetate (Fludrocortisone Acetate), 0.1 MG PO, (Reported) Loperamide Hcl (Loperamide), 2 MG PO, (Reported) Morphine Sulfate (Morphine Sulfate Er), 15 MG PO, (Reported) Multivit With Calcium,Iron,Min (Essential Daily), 1 EACH PO, (Reported) Zinc Amino Acid Chelate (Zinc), 220 MG ORAL, (Reported) Patient History Healthcare decision maker Resuscitation status Full Code Advanced Directive on File No Review of Systems Psychiatric: Reports: prior hx, anxiety, depressed feelings Physical Exam General Appearance: no apparent distress, alert Neurologic: oriented x 3, responsive, depressed affect Last 24 Hour Vital Signs Date Time Temp Pulse Resp B/P (MAP) Pulse Ox O2 Delivery O2 Flow Rate FiO2 05/12/18 13:50 144/82 05/12/18 12:00 97.4 85 20 144/82 (102) 98 97.4 05/12/18 12:00 90 05/12/18 09:13 82 141/81 05/12/18 09:12 82 141/81 05/12/18 09:00 Room Air 05/12/18 08:00 65 05/12/18 08:00 97.6 82 20 141/81 (101) 99 97.6 05/12/18 05:32 132/65 05/12/18 04:00 71 05/12/18 04:00 97.0 76 21 128/67 (87) 97 97.0 05/12/18 00:00 74 05/12/18 00:00 97.3 82 20 126/68 (87) 96 97.3 05/11/18 21:41 130/77 05/11/18 21:00 Room Air 05/11/18 20:00 97.7 82 20 125/73 (90) 99 97.7 05/11/18 20:00 84 05/11/18 18:06 97.0 05/11/18 17:07 97.0 05/11/18 16:27 97.0 79 19 143/74 (97) 99 97.0 05/11/18 15:53 75 Intake and Output 05/11/18 05/12/18 19:00 07:00 Intake Total 1482.5 ml 1504 ml Output Total 300 ml Balance 1182.5 ml 1504 ml Intake Oral 500 ml 240 ml IV Total 982.5 ml 1264 ml Output Urine Total 300 ml # Voids 1 1 # Bowel Movements 3 1 Laboratory Tests Test 8/8/18 07:20 White Blood Count 3.1 K/UL (4.8-10.8) L Red Blood Count 3.45 M/UL (4.20-5.40) L Hemoglobin 11.1 G/DL (12.0-16.0) L Hematocrit 34.3 % (37.0-47.0) L Mean Corpuscular Volume 99 FL (80-99) Mean Corpuscular Hemoglobin 32.3 PG (27.0-31.0) H Mean Corpuscular Hemoglobin Concent 32.5 G/DL (32.0-36.0) Red Cell Distribution Width 13.5 % (11.6-14.8) Platelet Count 136 K/UL (150-450) L Mean Platelet Volume 8.3 FL (6.5-10.1) Neutrophils (%) (Auto) % (45.0-75.0) Lymphocytes (%) (Auto) % (20.0-45.0) Monocytes (%) (Auto) % (1.0-10.0) Eosinophils (%) (Auto) % (0.0-3.0) Basophils (%) (Auto) % (0.0-2.0) Differential Total Cells Counted 100 Neutrophils % (Manual) 30 % (45-75) L Lymphocytes % (Manual) 56 % (20-45) H Monocytes % (Manual) 12 % (1-10) H Eosinophils % (Manual) 1 % (0-3) Basophils % (Manual) 1 % (0-2) Band Neutrophils 0 % (0-8) Platelet Estimate Decreased L Platelet Morphology Normal Hypochromasia 1+ Macrocytosis 1+ Sodium Level 141 MMOL/L (136-145) Potassium Level 4.4 MMOL/L (3.5-5.1) Chloride Level 110 MMOL/L (98-107) H Carbon Dioxide Level 21 MMOL/L (21-32) Anion Gap 10 mmol/L (5-15) Blood Urea Nitrogen 7 mg/dL (7-18) Creatinine 0.9 MG/DL (0.55-1.30) Estimat Glomerular Filtration Rate mL/min (>60) Glucose Level 79 MG/DL (74-106) Calcium Level 8.8 MG/DL (8.5-10.1) Height (Feet): 5 Height (Inches): 6.00 Weight (Pounds): 145 Medications Current Medications Medications (Trade) Dose Ordered Sig/Toya Route PRN Reason Start Time Stop Time Status Last Admin Dose Admin Acetaminophen/ Hydrocodone Bitart (Dimock 10/325) 1 tab Q4H PRN ORAL For Pain 05/10/18 19:00 05/17/18 18:59 05/11/18 17:07 Amlodipine Besylate (Norvasc) 5 mg DAILY ORAL 05/11/18 09:00 06/10/18 08:59 05/12/18 09:13 Artificial Tears (Akwa-Tears) 1 drop TID PRN BOTH EYES Dry Eyes 05/10/18 19:00 06/09/18 18:59 Azathioprine (Imuran) 75 mg DAILY ORAL 05/11/18 09:00 06/10/18 08:59 05/12/18 09:13 Cyclosporine (SandIMMUNE) 100 mg BID ORAL 05/11/18 09:00 06/10/18 08:59 05/12/18 09:12 Hydralazine HCl (Apresoline) 25 mg EVERY 8 HOURS ORAL 05/10/18 22:00 06/09/18 21:59 05/12/18 13:50 Iopamidol (Isovue-300 100ml) 100 ml NOW PRN INJ Radiology Procedure 05/10/18 15:00 Lorazepam (Ativan) 1 mg Q6H PRN ORAL For Anxiety 05/12/18 14:15 05/19/18 14:14 UNV Metoprolol Succinate (Toprol XL) 25 mg DAILY ORAL 05/12/18 09:00 06/11/18 08:59 05/12/18 09:12 Mirtazapine (Remeron) 7.5 mg BEDTIME ORAL 05/10/18 21:00 06/09/18 20:59 05/11/18 20:30 Morphine Sulfate (MS Contin) 15 mg EVERY 12 HOURS ORAL 05/10/18 21:00 05/17/18 20:59 05/12/18 09:12 Pantoprazole (Protonix) 40 mg DAILY ORAL 05/11/18 09:00 06/10/18 08:59 05/12/18 09:11 Piperacillin Sod/ Tazobactam Sod 3.375 gm/Dextrose 110 ml @ 27.5 mls/hr EVERY 8 HOURS IVPB 05/11/18 14:30 05/16/18 14:29 05/12/18 13:51 Pregabalin (Lyrica) 100 mg BID ORAL 05/11/18 09:00 06/10/18 08:59 05/12/18 09:11 Sodium Chloride 1,000 ml @ 100 mls/hr Q10H IV 05/10/18 23:45 06/09/18 23:44 05/12/18 05:19 Assessment/Plan Assessment/Plan MDD Anxiety d/o -cont Remeron -start Ativan prn -provided ro/Syeda Matamoros MD May 12, 2018 14:13
[2018-05-12 16:00] VITALS: BP 136/79
--- NOTE | 2018-05-12 16:15 | Cardiology Report ---
APPROVED REPORT EKG Measurement Heart [id number] Atrial Pacemaker Nonspecific ST abnormality Abnormal ECG
[2018-05-12] MEDS: LORazepam 1mg tab ORAL PRN (16:44)
[2018-05-12] MEDS ORDERED: Tubing IV Secondary IV ONE (16:54)
[2018-05-12] MEDS ORDERED: NS 275ml ONE (16:54)
--- NOTE | 2018-05-12 18:36 | General Progress Note ---
Assessment/Plan Problem List: (1) DVT (deep venous thrombosis) ICD Codes: I82.409 - Acute embolism and thrombosis of unspecified deep veins of unspecified lower extremity SNOMED: 473410819 (2) Acute GI bleeding ICD Codes: K92.2 - Gastrointestinal hemorrhage, unspecified SNOMED: 23721823 (3) Phantom limb pain ICD Codes: G54.6 - Phantom limb syndrome with pain SNOMED: 4811116271884 (4) Coagulopathy (5) Urinary tract infection (6) Peripheral vascular disease ICD Codes: I73.9 - Peripheral vascular disease, unspecified SNOMED: 390201635 Status: stable Assessment/Plan ppi rx holding all blood thinners monitor h.h pain rx monitor renal fxn transplant meds per renal endoscopy tomorrow Subjective Constitutional: Reports: fever, malaise HEENT: Reports: no symptoms Cardiovascular: Reports: no symptoms Respiratory: Reports: no symptoms Gastrointestinal/Abdominal: Reports: blood in stool Genitourinary: Reports: no symptoms Neurologic/Psychiatric: Reports: no symptoms Endocrine: Reports: no symptoms Hematologic/Lymphatic: Reports: no symptoms Allergies: Coded Allergies: No Known Allergies (Verified , 05/29/09) All Systems: reviewed and negative except above Subjective states bleeding is improved. h/h stable. pain controlled. on clears. not happy with diet Objective Last 24 Hour Vital Signs Date Time Temp Pulse Resp B/P (MAP) Pulse Ox O2 Delivery O2 Flow Rate FiO2 05/12/18 16:00 97.6 82 20 136/79 (98) 99 97.6 05/12/18 16:00 81 05/12/18 13:50 144/82 05/12/18 12:00 97.4 85 20 144/82 (102) 98 97.4 05/12/18 12:00 90 05/12/18 09:13 82 141/81 05/12/18 09:12 82 141/81 05/12/18 09:00 Room Air 05/12/18 08:00 65 05/12/18 08:00 97.6 82 20 141/81 (101) 99 97.6 05/12/18 05:32 132/65 05/12/18 04:00 71 05/12/18 04:00 97.0 76 21 128/67 (87) 97 97.0 05/12/18 00:00 74 05/12/18 00:00 97.3 82 20 126/68 (87) 96 97.3 05/11/18 21:41 130/77 05/11/18 21:00 Room Air 05/11/18 20:00 97.7 82 20 125/73 (90) 99 97.7 05/11/18 20:00 84 Intake and Output 05/11/18 05/12/18 19:00 07:00 Intake Total 1482.5 ml 1504 ml Output Total 300 ml Balance 1182.5 ml 1504 ml Intake Oral 500 ml 240 ml IV Total 982.5 ml 1264 ml Output Urine Total 300 ml # Voids 1 1 # Bowel Movements 3 1 Laboratory Tests 05/12/18 07:20: White Blood Count 3.1L, Red Blood Count 3.45L, Hemoglobin 11.1L, Hematocrit 34.3L, Mean Corpuscular Volume 99, Mean Corpuscular Hemoglobin 32.3H, Mean Corpuscular Hemoglobin Concent 32.5, Red Cell Distribution Width 13.5, Platelet Count 136L, Mean Platelet Volume 8.3, Neutrophils (%) (Auto) , Lymphocytes (%) ( Auto) , Monocytes (%) (Auto) , Eosinophils (%) (Auto) , Basophils (%) (Auto) , Differential Total Cells Counted 100, Neutrophils % (Manual) 30L, Lymphocytes % (Manual) 56H, Monocytes % (Manual) 12H, Eosinophils % (Manual) 1, Basophils % ( Manual) 1, Band Neutrophils 0, Platelet Estimate DecreasedL, Platelet Morphology Normal, Hypochromasia 1+, Macrocytosis 1+, Sodium Level 141, Potassium Level 4.4, Chloride Level 110H, Carbon Dioxide Level 21, Anion Gap 10 , Blood Urea Nitrogen 7, Creatinine 0.9, Estimat Glomerular Filtration Rate , Glucose Level 79, Calcium Level 8.8 Height (Feet): 5 Height (Inches): 6.00 Weight (Pounds): 145 Objective GENERAL: The patient is well developed, no apparent distress. HEART: Regular rate and rhythm. LUNGS: Lungs are clear. ABDOMEN: Soft, nontender and nondistended. EXTREMITIES: Without cyanosis. 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 John Red MD May 12, 2018 18:36
--- NOTE | 2018-05-12 19:07 | General Progress Note ---
Assessment/Plan Assessment/Plan Assessment - GIB - PVD - DM - a fib / pacer - s/p KRT Recommendations - Clears - GI prep - EGD/Colon in am Subjective Allergies: Coded Allergies: No Known Allergies (Verified , 05/29/09) Subjective No new complaints tolerating liquids no further BRBPR Objective Last 24 Hour Vital Signs Date Time Temp Pulse Resp B/P (MAP) Pulse Ox O2 Delivery O2 Flow Rate FiO2 05/12/18 16:00 97.6 82 20 136/79 (98) 99 97.6 05/12/18 16:00 81 05/12/18 13:50 144/82 05/12/18 12:00 97.4 85 20 144/82 (102) 98 97.4 05/12/18 12:00 90 05/12/18 09:13 82 141/81 05/12/18 09:12 82 141/81 05/12/18 09:00 Room Air 05/12/18 08:00 65 05/12/18 08:00 97.6 82 20 141/81 (101) 99 97.6 05/12/18 05:32 132/65 05/12/18 04:00 71 05/12/18 04:00 97.0 76 21 128/67 (87) 97 97.0 05/12/18 00:00 74 05/12/18 00:00 97.3 82 20 126/68 (87) 96 97.3 05/11/18 21:41 130/77 05/11/18 21:00 Room Air 05/11/18 20:00 97.7 82 20 125/73 (90) 99 97.7 05/11/18 20:00 84 Intake and Output 05/11/18 05/12/18 19:00 07:00 Intake Total 1482.5 ml 1504 ml Output Total 300 ml Balance 1182.5 ml 1504 ml Intake Oral 500 ml 240 ml IV Total 982.5 ml 1264 ml Output Urine Total 300 ml # Voids 1 1 # Bowel Movements 3 1 Laboratory Tests 05/12/18 07:20: White Blood Count 3.1L, Red Blood Count 3.45L, Hemoglobin 11.1L, Hematocrit 34.3L, Mean Corpuscular Volume 99, Mean Corpuscular Hemoglobin 32.3H, Mean Corpuscular Hemoglobin Concent 32.5, Red Cell Distribution Width 13.5, Platelet Count 136L, Mean Platelet Volume 8.3, Neutrophils (%) (Auto) , Lymphocytes (%) ( Auto) , Monocytes (%) (Auto) , Eosinophils (%) (Auto) , Basophils (%) (Auto) , Differential Total Cells Counted 100, Neutrophils % (Manual) 30L, Lymphocytes % (Manual) 56H, Monocytes % (Manual) 12H, Eosinophils % (Manual) 1, Basophils % ( Manual) 1, Band Neutrophils 0, Platelet Estimate DecreasedL, Platelet Morphology Normal, Hypochromasia 1+, Macrocytosis 1+, Sodium Level 141, Potassium Level 4.4, Chloride Level 110H, Carbon Dioxide Level 21, Anion Gap 10 , Blood Urea Nitrogen 7, Creatinine 0.9, Estimat Glomerular Filtration Rate , Glucose Level 79, Calcium Level 8.8 Height (Feet): 5 Height (Inches): 6.00 Weight (Pounds): 145 Objective WDWNAA woman NCAT supple CTA RRR soft ND NT (+) Kalin Spivey MD May 12, 2018 19:07
[2018-05-12 22:10] VITALS: BP 135/76
[2018-05-13] VITALS (10 sets, daily range): BP systolic 133–160; BP diastolic 70–93
[2018-05-13] MEDS: Piperacillin/Tazobactam 3.375 GM in D5W 110 ML IVPB SCH ×3 (05:13→21:16)
[2018-05-13] MEDS: HydrALAZINE 25mg tab ORAL SCH ×3 (05:16→21:15)
[2018-05-13 07:41] LABS: BASOPHILS % (AUTO) 1.9 % (0.0-2.0); EOSINOPHILS % (AUTO) 1.4 % (0.0-3.0); HEMATOCRIT 32.7 % (37.0-47.0); HEMOGLOBIN 10.6 G/DL (12.0-16.0); LYMPHOCYTES % (AUTO) 44.2 % (20.0-45.0); MEAN CORPUSCULAR VOLUME 99 FL (80-99); NEUTROPHILS % (AUTO) 38.6 % (45.0-75.0); PLATELET COUNT 132 K/UL (150-450); RED BLOOD COUNT 3.29 M/UL (4.20-5.40); RED CELL DISTRIBUTION WIDTH 13.9 % (11.6-14.8); WHITE BLOOD COUNT 3.5 K/UL (4.8-10.8)
[2018-05-13] MEDS ORDERED: Midazolam 2mg/2ml Inj ONE ×2 (07:43→09:30)
[2018-05-13] MEDS ORDERED: Propofol 200mg/20ml IV ONE ×2 (07:43→09:30)
[2018-05-13 08:14] LABS: ALANINE AMINOTRANSFERASE 7 U/L (12-78); ALBUMIN 2.7 G/DL (3.4-5.0); ALBUMIN/GLOBULIN RATIO 0.7 (1.0-2.7); ALKALINE PHOSPHATASE 64 U/L (46-116); ANION GAP 8 mmol/L (5-15); ASPARTATE AMINO TRANSFERASE 14 U/L (15-37); BILIRUBIN,TOTAL 0.5 MG/DL (0.2-1.0); BLOOD UREA NITROGEN 6 mg/dL (7-18); CALCIUM 8.7 MG/DL (8.5-10.1); CARBON DIOXIDE 22 MMOL/L (21-32); CHLORIDE 113 MMOL/L (98-107); CREATININE 0.9 MG/DL (0.55-1.30); POTASSIUM 4.2 MMOL/L (3.5-5.1); SODIUM 143 MMOL/L (136-145)
[2018-05-13] MEDS ORDERED: NS 500ML IVPB ONE (09:20)
[2018-05-13] MEDS ORDERED: LR 1000ml ONE (09:30)
--- NOTE | 2018-05-13 09:38 | General Progress Note ---
Assessment/Plan Assessment/Plan Assessment - GIB - anemia - hypomagnesemia - PVD - DM - a fib / pacer - s/p KRT Recommendations - Replace Mg - NPO - EGD/Colon today Subjective Allergies: Coded Allergies: No Known Allergies (Verified , 05/29/09) Subjective Feels OK NPO for EGD/Colon labs noted Mg slightly low Objective Last 24 Hour Vital Signs Date Time Temp Pulse Resp B/P (MAP) Pulse Ox O2 Delivery O2 Flow Rate FiO2 05/13/18 09:00 Room Air 05/13/18 08:00 97.7 78 20 144/77 (99) 99 97.7 05/13/18 05:16 140/73 05/13/18 04:00 97.3 89 21 140/73 (95) 98 97.3 05/13/18 04:00 73 05/13/18 00:00 Room Air 05/13/18 00:00 72 05/13/18 00:00 97.7 92 20 135/76 (95) 96 97.7 05/12/18 22:10 83 05/12/18 22:10 97.0 83 20 135/76 (95) 99 97.0 05/12/18 21:50 135/76 05/12/18 16:00 97.6 82 20 136/79 (98) 99 97.6 05/12/18 16:00 81 05/12/18 13:50 144/82 05/12/18 12:00 97.4 85 20 144/82 (102) 98 97.4 05/12/18 12:00 90 Intake and Output 05/12/18 05/13/18 19:00 07:00 Intake Total 600 ml 1637.0 ml Output Total 300 ml Balance 600 ml 1337.0 ml Intake Oral 500 ml 500 ml IV Total 100 ml 1137.0 ml Output Urine Total 300 ml # Voids 2 # Bowel Movements 7 7 Laboratory Tests 05/13/18 07:20: White Blood Count 3.5L, Red Blood Count 3.29L, Hemoglobin 10.6L, Hematocrit 32.7L, Mean Corpuscular Volume 99, Mean Corpuscular Hemoglobin 32.4H, Mean Corpuscular Hemoglobin Concent 32.6, Red Cell Distribution Width 13.9, Platelet Count 132L, Mean Platelet Volume 8.7, Neutrophils (%) (Auto) 38.6L, Lymphocytes (%) (Auto) 44.2, Monocytes (%) (Auto) 14.0H, Eosinophils (%) (Auto) 1.4, Basophils (%) (Auto) 1.9, Sodium Level 143, Potassium Level 4.2, Chloride Level 113H, Carbon Dioxide Level 22, Anion Gap 8, Blood Urea Nitrogen 6L, Creatinine 0.9, Estimat Glomerular Filtration Rate , Glucose Level 79, Calcium Level 8.7, Magnesium Level 1.6L, Total Bilirubin 0.5, Aspartate Amino Transf (AST/SGOT) 14L , Alanine Aminotransferase (ALT/SGPT) 7L, Alkaline Phosphatase 64, Total Protein 6.6, Albumin 2.7L, Globulin 3.9, Albumin/Globulin Ratio 0.7L Height (Feet): 5 Height (Inches): 5.00 Weight (Pounds): 144 Objective WDWNAA woman NCAT supple CTA RRR soft ND NT (+) Kalin Spivey MD May 13, 2018 09:38
--- NOTE | 2018-05-13 09:39 | Pre-Procedure Note/Attestation ---
Pre-Procedure Note/Attestation Complete Prior to Procedure Planned Procedure: not applicable Procedure Narrative: egd/colon Indications for Procedure Pre-Operative Diagnosis: GIB, anemia Attestation I attest that I discussed the nature of the procedure; its benefits; risks and complications; and alternatives (and the risks and benefits of such alternatives ), prior to the procedure, with the patient (or the patient's legal packaging sales representative). I attest that, if there was a reasonable possibility of needing a blood transfusion, the patient (or the patient's legal packaging sales representative) was given the [facility] standardized written summary, pursuant to the [place] Blood Safety Act ([place] Health and Safety Code # 1645, as amended). I attest that I re-evaluated the patient just prior to the surgery and that there has been no change in the patient's H&P, except as documented below: Kalin Hall MD May 13, 2018 09:39
--- NOTE | 2018-05-13 10:21 | Anethesia Preoperative Eval ---
Anesthesia Pre-op PMH/ROS General Date of Evaluation: May 13, 2018 Time of Evaluation: 09:30 Anesthesiologist: ASA Score: ASA 4 Mallampati Score Class I : Soft palate, uvula, fauces, pillars visible Class II: Soft palate, uvula, fauces visible Class III: Soft palate, base of uvula visible Class IV: Only hard plate visible Mallampati Classification: Class II Surgeon: maria l Diagnosis: gi bleeding Surgical Procedure: colonoscopy, endoscopy Allergies: Coded Allergies: No Known Allergies (Verified , 05/29/09) Past Medical History Cardiovascular: Reports: HTN, CAD, arrhythmia, other - pacemaker, ; Denies: ID, valve dz Pulmonary: Reports: asthma, COPD, other - gi bleed Gastrointestinal/Genitourinary: Denies: GERD, CRI, ESRD, other Neurologic/Psychiatric: Reports: CVA; Denies: dementia, depression/anxiety, TIA, other Endocrine: Reports: DM, other - kidney transplant; Denies: hypothyroidism, steroids HEENT: Denies: cataract (L), cataract (R), glaucoma, ATQASUK (L), ATQASUK (R), other Hematology/Immune: Reports: DVT Anesthesia Pre-op Phys. Exam Physician Exam Last Vital Signs Date Time Temp Pulse Resp B/P (MAP) Pulse Ox O2 Delivery O2 Flow Rate FiO2 05/13/18 09:00 Room Air 05/13/18 08:00 97.7 78 20 144/77 (99) 99 97.7 Constitutional: NAD Cardiovascular: RRR, other - pacemaker Airway Exam Mallampati Score: Class II MO: full ROM: full Teeth: missing Dentures: lower Anesthesia Pre-op A/P Labs Hematology Test 05/13/18 07:20 White Blood Count 3.5 K/UL (4.8-10.8) L Red Blood Count 3.29 M/UL (4.20-5.40) L Hemoglobin 10.6 G/DL (12.0-16.0) L Hematocrit 32.7 % (37.0-47.0) L Mean Corpuscular Volume 99 FL (80-99) Mean Corpuscular Hemoglobin 32.4 PG (27.0-31.0) H Mean Corpuscular Hemoglobin Concent 32.6 G/DL (32.0-36.0) Red Cell Distribution Width 13.9 % (11.6-14.8) Platelet Count 132 K/UL (150-450) L Mean Platelet Volume 8.7 FL (6.5-10.1) Neutrophils (%) (Auto) 38.6 % (45.0-75.0) L Lymphocytes (%) (Auto) 44.2 % (20.0-45.0) Monocytes (%) (Auto) 14.0 % (1.0-10.0) H Eosinophils (%) (Auto) 1.4 % (0.0-3.0) Basophils (%) (Auto) 1.9 % (0.0-2.0) Chemistry Test 05/13/18 07:20 Sodium Level 143 MMOL/L (136-145) Potassium Level 4.2 MMOL/L (3.5-5.1) Chloride Level 113 MMOL/L (98-107) H Carbon Dioxide Level 22 MMOL/L (21-32) Anion Gap 8 mmol/L (5-15) Blood Urea Nitrogen 6 mg/dL (7-18) L Creatinine 0.9 MG/DL (0.55-1.30) Estimat Glomerular Filtration Rate mL/min (>60) Glucose Level 79 MG/DL (74-106) Calcium Level 8.7 MG/DL (8.5-10.1) Magnesium Level 1.6 MG/DL (1.8-2.4) L Total Bilirubin 0.5 MG/DL (0.2-1.0) Aspartate Amino Transf (AST/SGOT) 14 U/L (15-37) L Alanine Aminotransferase (ALT/SGPT) 7 U/L (12-78) L Alkaline Phosphatase 64 U/L (46-116) Total Protein 6.6 G/DL (6.4-8.2) Albumin 2.7 G/DL (3.4-5.0) L Globulin 3.9 g/dL Albumin/Globulin Ratio 0.7 (1.0-2.7) L Risk Assessment & Plan Assessment: asa 4 Plan: MAC Status Change Before Surgery: No Pre-Antibiotics Drug: NONE Gita Lutz M.D. May 13, 2018 10:21
--- NOTE | 2018-05-13 10:24 | Immediate Post-Op Evaluation ---
Immediate Post-Op Evalulation Immediate Post-Op Evalulation Procedure: ENDOSCOPY, COLONOSCOPY Date of Evaluation: May 13, 2018 Time of Evaluation: 10:28 IV Fluids: 100ml Blood Products: 0 Estimated Blood Loss: 0 Urinary Output: 0 Blood Pressure Systolic: 137 Blood Pressure Diastolic: 73 Pulse Rate: 80 Respiratory Rate: 14 O2 Sat by Pulse Oximetry: 100 Temperature (Fahrenheit): 97.7 Pain Score (1-10): 0 Nausea: No Vomiting: No Complications none Patient Status: awake, patent, none Hydration Status: adequate Drug: none Gita Lutz M.D. May 13, 2018 10:24
--- NOTE | 2018-05-13 10:27 | General Progress Note ---
Assessment/Plan Assessment/Plan Assessment - GIB - anemia - hypomagnesemia - likely from GI prep - PVD - DM - a fib / pacer - s/p KRT Recommendations - Replace Mg - 1 g IV ordered - NPO - EGD/Colon today Post Procedure Addendum EGD - 3 cm hiatal hernia Colon - diminutive polyp at 40 cm, removed Mild hemorrhoids No GIB Recommend restart PO diet and anticoagulation If bleeds again, may need hemorrhoidal treatment Subjective Allergies: Coded Allergies: No Known Allergies (Verified , 05/29/09) Subjective Feels OK NPO for EGD/Colon labs noted Mg slightly low Objective Last 24 Hour Vital Signs Date Time Temp Pulse Resp B/P (MAP) Pulse Ox O2 Delivery O2 Flow Rate FiO2 05/13/18 09:00 Room Air 05/13/18 08:00 97.7 78 20 144/77 (99) 99 97.7 05/13/18 05:16 140/73 05/13/18 04:00 97.3 89 21 140/73 (95) 98 97.3 05/13/18 04:00 73 05/13/18 00:00 Room Air 05/13/18 00:00 72 05/13/18 00:00 97.7 92 20 135/76 (95) 96 97.7 05/12/18 22:10 83 05/12/18 22:10 97.0 83 20 135/76 (95) 99 97.0 05/12/18 21:50 135/76 05/12/18 16:00 97.6 82 20 136/79 (98) 99 97.6 05/12/18 16:00 81 05/12/18 13:50 144/82 05/12/18 12:00 97.4 85 20 144/82 (102) 98 97.4 05/12/18 12:00 90 Intake and Output 05/12/18 05/13/18 19:00 07:00 Intake Total 600 ml 1637.0 ml Output Total 300 ml Balance 600 ml 1337.0 ml Intake Oral 500 ml 500 ml IV Total 100 ml 1137.0 ml Output Urine Total 300 ml # Voids 2 # Bowel Movements 7 7 Laboratory Tests 05/13/18 07:20: White Blood Count 3.5L, Red Blood Count 3.29L, Hemoglobin 10.6L, Hematocrit 32.7L, Mean Corpuscular Volume 99, Mean Corpuscular Hemoglobin 32.4H, Mean Corpuscular Hemoglobin Concent 32.6, Red Cell Distribution Width 13.9, Platelet Count 132L, Mean Platelet Volume 8.7, Neutrophils (%) (Auto) 38.6L, Lymphocytes (%) (Auto) 44.2, Monocytes (%) (Auto) 14.0H, Eosinophils (%) (Auto) 1.4, Basophils (%) (Auto) 1.9, Sodium Level 143, Potassium Level 4.2, Chloride Level 113H, Carbon Dioxide Level 22, Anion Gap 8, Blood Urea Nitrogen 6L, Creatinine 0.9, Estimat Glomerular Filtration Rate , Glucose Level 79, Calcium Level 8.7, Magnesium Level 1.6L, Total Bilirubin 0.5, Aspartate Amino Transf (AST/SGOT) 14L , Alanine Aminotransferase (ALT/SGPT) 7L, Alkaline Phosphatase 64, Total Protein 6.6, Albumin 2.7L, Globulin 3.9, Albumin/Globulin Ratio 0.7L Height (Feet): 5 Height (Inches): 5.00 Weight (Pounds): 144 Objective WDWNAA woman NCAT supple CTA RRR soft ND NT (+) Kalin Spivey MD May 13, 2018 10:27
--- NOTE | 2018-05-13 10:28 | Endoscopy Procedure Note ---
Endoscopy Procedure Note General Indication for Procedure: gib Procedures Performed: EGD, colonoscopy Operative Findings/Diagnosis: HH, polyp, rhoid Specimen: yes Pt Tolerated Procedure Well: Yes Estimated Blood Loss: none Anesthesia Anesthesiologist: see report Anesthesia: MAC Medications Medication Given: see anesthesia record Inserted Devices Implant(s) used?: No GI Core Measures 50 yrs or older w/o bx or poly: Not Applicable 10yrs. F/U not recommended: Not Applicable If not recommended, why?: Kalin Hall MD May 13, 2018 10:28
--- NOTE | 2018-05-13 10:29 | Brief Operative Note ---
Immediate Post Operative Note Operative Note Chief Complaint: gib Pre-op Diagnosis: GIB, anemia Procedure: esophagogastroduodenoscopy colon,bx Post-op Diagnosis: EGD - 3 cm hiatal hernia Colon - diminutive polyp at 40 cm, removed Mild hemorrhoids No GIB Recommend restart PO diet and anticoagulation If bleeds again, may need hemorrhoidal treatment Surgeon: maria l Anesthesia: MAC Specimen: yes Complications: none Condition: stable Fluids: given Estimated Blood Loss: none Drains: none Implant(s) used?: No Kalin Hall MD May 13, 2018 10:29
--- NOTE | 2018-05-13 10:50 | 48 Hour Post Anesthesia Eval ---
Post Anesthesia Evaluation Procedure: ENDOSCOPY, COLONOSCOPY Date of Evaluation: May 13, 2018 Time of Evaluation: 10:55 Blood Pressure Systolic: 148 0: 74 Pulse Rate: 78 Respiratory Rate: 18 Temperature (Fahrenheit): 97.6 O2 Sat by Pulse Oximetry: 98 Airway: patent Nausea: No Vomiting: No Pain Intensity: 0 Hydration Status: adequate Mental Status/LOC: patient returned to baseline Post-Anesthesia Complications: none Follow-up care needed: N/A Gita Lutz M.D. May 13, 2018 10:50
[2018-05-13] MEDS: azaTHIOprine 50 MG TAB ORAL SCH (11:25)
[2018-05-13] MEDS: cycloSPORINE 100mg cap ORAL SCH ×2 (11:25→17:49)
[2018-05-13] MEDS: Metoprolol Succinate XL 25mg tab ORAL SCH (11:26)
[2018-05-13] MEDS: MS Contin 15mg tab ORAL SCH ×2 (11:26→21:16)
[2018-05-13] MEDS: Lyrica 50mg cap ORAL SCH ×2 (11:26→17:49)
--- NOTE | 2018-05-13 11:35 | General Progress Note ---
Assessment/Plan Status: stable Assessment/Plan encephalopathy due to [facility] [place] dementia -ativan prn -seroquel Subjective Date patient seen: May 13, 2018 Neurologic/Psychiatric: Reports: anxiety, depressed, emotional problems Allergies: Coded Allergies: No Known Allergies (Verified , 05/29/09) Objective Last 24 Hour Vital Signs Date Time Temp Pulse Resp B/P (MAP) Pulse Ox O2 Delivery O2 Flow Rate FiO2 05/13/18 11:26 78 148/74 05/13/18 11:25 78 148/74 05/13/18 10:58 207.7 78 18 98 05/13/18 10:52 97.6 78 18 148/74 98 Room Air 97.6 05/13/18 10:45 75 19 151/77 100 Room Air 05/13/18 10:41 207.9 80 14 100 05/13/18 10:35 72 16 137/72 100 Room Air 05/13/18 10:28 97.7 73 15 137/73 99 Nasal Cannula 3 97.7 05/13/18 09:00 Room Air 05/13/18 08:00 97.7 78 20 144/77 (99) 99 97.7 05/13/18 05:16 140/73 05/13/18 04:00 97.3 89 21 140/73 (95) 98 97.3 05/13/18 04:00 73 05/13/18 00:00 Room Air 05/13/18 00:00 72 05/13/18 00:00 97.7 92 20 135/76 (95) 96 97.7 05/12/18 22:10 83 05/12/18 22:10 97.0 83 20 135/76 (95) 99 97.0 05/12/18 21:50 135/76 05/12/18 16:00 97.6 82 20 136/79 (98) 99 97.6 05/12/18 16:00 81 05/12/18 13:50 144/82 05/12/18 12:00 97.4 85 20 144/82 (102) 98 97.4 05/12/18 12:00 90 Intake and Output 05/12/18 05/13/18 19:00 07:00 Intake Total 600 ml 1637.0 ml Output Total 300 ml Balance 600 ml 1337.0 ml Intake Oral 500 ml 500 ml IV Total 100 ml 1137.0 ml Output Urine Total 300 ml # Voids 2 # Bowel Movements 7 7 Laboratory Tests 05/13/18 07:20: White Blood Count 3.5L, Red Blood Count 3.29L, Hemoglobin 10.6L, Hematocrit 32.7L, Mean Corpuscular Volume 99, Mean Corpuscular Hemoglobin 32.4H, Mean Corpuscular Hemoglobin Concent 32.6, Red Cell Distribution Width 13.9, Platelet Count 132L, Mean Platelet Volume 8.7, Neutrophils (%) (Auto) 38.6L, Lymphocytes (%) (Auto) 44.2, Monocytes (%) (Auto) 14.0H, Eosinophils (%) (Auto) 1.4, Basophils (%) (Auto) 1.9, Sodium Level 143, Potassium Level 4.2, Chloride Level 113H, Carbon Dioxide Level 22, Anion Gap 8, Blood Urea Nitrogen 6L, Creatinine 0.9, Estimat Glomerular Filtration Rate , Glucose Level 79, Calcium Level 8.7, Magnesium Level 1.6L, Total Bilirubin 0.5, Aspartate Amino Transf (AST/SGOT) 14L , Alanine Aminotransferase (ALT/SGPT) 7L, Alkaline Phosphatase 64, Total Protein 6.6, Albumin 2.7L, Globulin 3.9, Albumin/Globulin Ratio 0.7L Height (Feet): 5 Height (Inches): 5.00 Weight (Pounds): 144 General Appearance: no apparent distress, alert Neurologic: oriented x 3, responsive, depressed affect Syeda Price MD May 13, 2018 11:35
--- NOTE | 2018-05-13 14:57 | General Progress Note ---
Assessment/Plan Problem List: (1) DVT (deep venous thrombosis) ICD Codes: I82.409 - Acute embolism and thrombosis of unspecified deep veins of unspecified lower extremity SNOMED: 636536921 (2) Acute GI bleeding ICD Codes: K92.2 - Gastrointestinal hemorrhage, unspecified SNOMED: 58408602 (3) Phantom limb pain ICD Codes: G54.6 - Phantom limb syndrome with pain SNOMED: 3375815355100 (4) Coagulopathy (5) Urinary tract infection (6) Peripheral vascular disease ICD Codes: I73.9 - Peripheral vascular disease, unspecified SNOMED: 488791042 Status: stable, progressing Assessment/Plan ppi rx holding all blood thinners until cleared by gi monitor h.h pain rx monitor renal fxn transplant meds per renal cont iv abx till tomorrow Subjective ROS Limited/Unobtainable: No Constitutional: Reports: malaise, weakness HEENT: Reports: no symptoms Cardiovascular: Reports: no symptoms Respiratory: Reports: no symptoms Gastrointestinal/Abdominal: Reports: no symptoms Genitourinary: Reports: no symptoms Neurologic/Psychiatric: Reports: no symptoms Endocrine: Reports: no symptoms Hematologic/Lymphatic: Reports: no symptoms Allergies: Coded Allergies: No Known Allergies (Verified , 05/29/09) All Systems: reviewed and negative except above Subjective states bleeding is improved. h/h stable. pain controlled. on clears. npo for endoscopy. on iv abx for esbl uti Objective Last 24 Hour Vital Signs Date Time Temp Pulse Resp B/P (MAP) Pulse Ox O2 Delivery O2 Flow Rate FiO2 05/13/18 13:56 160/93 05/13/18 12:00 97.4 80 21 160/93 (115) 99 97.4 05/13/18 12:00 79 05/13/18 11:26 78 148/74 05/13/18 11:25 78 148/74 05/13/18 10:58 207.7 78 18 98 05/13/18 10:52 97.6 78 18 148/74 98 Room Air 97.6 05/13/18 10:45 75 19 151/77 100 Room Air 05/13/18 10:41 207.9 80 14 100 05/13/18 10:35 72 16 137/72 100 Room Air 05/13/18 10:28 97.7 73 15 137/73 99 Nasal Cannula 3 97.7 05/13/18 09:00 Room Air 05/13/18 08:00 97.7 78 20 144/77 (99) 99 97.7 05/13/18 08:00 75 05/13/18 05:16 140/73 05/13/18 04:00 97.3 89 21 140/73 (95) 98 97.3 05/13/18 04:00 73 05/13/18 00:00 Room Air 05/13/18 00:00 72 05/13/18 00:00 97.7 92 20 135/76 (95) 96 97.7 05/12/18 22:10 83 05/12/18 22:10 97.0 83 20 135/76 (95) 99 97.0 05/12/18 21:50 135/76 05/12/18 16:00 97.6 82 20 136/79 (98) 99 97.6 05/12/18 16:00 81 Intake and Output 05/12/18 05/13/18 19:00 07:00 Intake Total 600 ml 1637.0 ml Output Total 300 ml Balance 600 ml 1337.0 ml Intake Oral 500 ml 500 ml IV Total 100 ml 1137.0 ml Output Urine Total 300 ml # Voids 2 # Bowel Movements 7 7 Laboratory Tests 05/13/18 07:20: White Blood Count 3.5L, Red Blood Count 3.29L, Hemoglobin 10.6L, Hematocrit 32.7L, Mean Corpuscular Volume 99, Mean Corpuscular Hemoglobin 32.4H, Mean Corpuscular Hemoglobin Concent 32.6, Red Cell Distribution Width 13.9, Platelet Count 132L, Mean Platelet Volume 8.7, Neutrophils (%) (Auto) 38.6L, Lymphocytes (%) (Auto) 44.2, Monocytes (%) (Auto) 14.0H, Eosinophils (%) (Auto) 1.4, Basophils (%) (Auto) 1.9, Sodium Level 143, Potassium Level 4.2, Chloride Level 113H, Carbon Dioxide Level 22, Anion Gap 8, Blood Urea Nitrogen 6L, Creatinine 0.9, Estimat Glomerular Filtration Rate , Glucose Level 79, Calcium Level 8.7, Magnesium Level 1.6L, Total Bilirubin 0.5, Aspartate Amino Transf (AST/SGOT) 14L , Alanine Aminotransferase (ALT/SGPT) 7L, Alkaline Phosphatase 64, Total Protein 6.6, Albumin 2.7L, Globulin 3.9, Albumin/Globulin Ratio 0.7L Height (Feet): 5 Height (Inches): 5.00 Weight (Pounds): 144 Objective GENERAL: The patient is well developed, no apparent distress. HEART: Regular rate and rhythm. LUNGS: Lungs are clear. ABDOMEN: Soft, nontender and nondistended. EXTREMITIES: Without cyanosis. 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 John Red MD May 13, 2018 14:57
[2018-05-13] MEDS: HYDROcodone/Acetamin 10/325 tab ORAL PRN (17:54)
--- NOTE | 2018-05-13 18:32 | Nephrology Progress Note ---
Assessment/Plan Problem List: (1) Urinary tract infection (2) Peripheral vascular disease (3) Kidney transplanted (4) GIB (gastrointestinal bleeding) (5) Hypoalbuminemia due to protein-calorie malnutrition (6) Hypomagnesemia Plan start zosyn as prior esbl, gi w/u in progress--study noted, low Mg mag oxide, dc iv Subjective Constitutional: Reports: weakness HEENT: Reports: no symptoms Genitourinary: Reports: burning, incontinence Neurologic/Psychiatric: Reports: no symptoms Objective Objective Last 24 Hour Vital Signs Date Time Temp Pulse Resp B/P (MAP) Pulse Ox O2 Delivery O2 Flow Rate FiO2 05/13/18 16:00 97.5 87 20 141/81 (101) 99 97.5 05/13/18 16:00 75 05/13/18 13:56 160/93 05/13/18 12:00 97.4 80 21 160/93 (115) 99 97.4 05/13/18 12:00 79 05/13/18 11:26 78 148/74 05/13/18 11:25 78 148/74 05/13/18 10:58 207.7 78 18 98 05/13/18 10:52 97.6 78 18 148/74 98 Room Air 97.6 05/13/18 10:45 75 19 151/77 100 Room Air 05/13/18 10:41 207.9 80 14 100 05/13/18 10:35 72 16 137/72 100 Room Air 05/13/18 10:28 97.7 73 15 137/73 99 Nasal Cannula 3 97.7 05/13/18 09:00 Room Air 05/13/18 08:00 97.7 78 20 144/77 (99) 99 97.7 05/13/18 08:00 75 05/13/18 05:16 140/73 05/13/18 04:00 97.3 89 21 140/73 (95) 98 97.3 05/13/18 04:00 73 05/13/18 00:00 Room Air 05/13/18 00:00 72 05/13/18 00:00 97.7 92 20 135/76 (95) 96 97.7 05/12/18 22:10 83 05/12/18 22:10 97.0 83 20 135/76 (95) 99 97.0 05/12/18 21:50 135/76 Intake and Output 05/12/18 05/13/18 19:00 07:00 Intake Total 600 ml 1637.0 ml Output Total 300 ml Balance 600 ml 1337.0 ml Intake Oral 500 ml 500 ml IV Total 100 ml 1137.0 ml Output Urine Total 300 ml # Voids 2 # Bowel Movements 7 7 Laboratory Tests 05/13/18 07:20: White Blood Count 3.5L, Red Blood Count 3.29L, Hemoglobin 10.6L, Hematocrit 32.7L, Mean Corpuscular Volume 99, Mean Corpuscular Hemoglobin 32.4H, Mean Corpuscular Hemoglobin Concent 32.6, Red Cell Distribution Width 13.9, Platelet Count 132L, Mean Platelet Volume 8.7, Neutrophils (%) (Auto) 38.6L, Lymphocytes (%) (Auto) 44.2, Monocytes (%) (Auto) 14.0H, Eosinophils (%) (Auto) 1.4, Basophils (%) (Auto) 1.9, Sodium Level 143, Potassium Level 4.2, Chloride Level 113H, Carbon Dioxide Level 22, Anion Gap 8, Blood Urea Nitrogen 6L, Creatinine 0.9, Estimat Glomerular Filtration Rate , Glucose Level 79, Calcium Level 8.7, Magnesium Level 1.6L, Total Bilirubin 0.5, Aspartate Amino Transf (AST/SGOT) 14L , Alanine Aminotransferase (ALT/SGPT) 7L, Alkaline Phosphatase 64, Total Protein 6.6, Albumin 2.7L, Globulin 3.9, Albumin/Globulin Ratio 0.7L Height (Feet): 5 Height (Inches): 5.00 Weight (Pounds): 144 General Appearance: no apparent distress, alert EENT: normal ENT inspection Neck: normal alignment Cardiovascular: normal rate Respiratory/Chest: lungs clear Abdomen: non tender, soft Extremities: other - r bka no edema APURVA ROBERTSON May 13, 2018 18:32
[2018-05-13] MEDS: Magnesium Oxide 400mg tab ORAL SCH (18:47)
--- NOTE | 2018-05-13 23:15 | Procedure Note ---
DATE OF PROCEDURE: 05/13/2018 PROCEDURE: Upper gastrointestinal endoscopy as well as colonoscopy with biopsy. SURGEON: Kalin Hall M.D. ANESTHESIA: Please see the separate anesthesiologist notes for details. PRE-ENDOSCOPIC DIAGNOSIS: Anemia. POST-ENDOSCOPIC DIAGNOSIS: 1. A 3 cm incidental hiatal hernia. 2. No upper gastrointestinal lesions to explain anemia. 3. Diminutive colon polyp status post removal. 4. No lesion to explain anemia. DESCRIPTION OF PROCEDURE: The procedure, its risks, indications, alternatives, and possible complications including, but not limited to bleeding, infection, perforation, , and anesthesia complications were explained to the patient and informed consent was obtained. The patient was then sedated in the left lateral decubitus position. A diagnostic upper endoscope was introduced through the oropharynx and advanced to the duodenum without difficulty. The endoscope was then gradually withdrawn and the mucosa examined carefully. Examination of upper gastrointestinal mucosa was only remarkable for a 3 cm hiatal hernia. The endoscope was removed and the colonoscope was introduced into the rectum and advanced to the terminal ileum for about 5 cm. The terminal ileal mucosa was normal. There was a diminutive polyp in the colon which was removed with the biopsy forceps. The remainder of the colonoscopic examination was unremarkable. The colonoscope was removed and the patient was sent to recovery in good condition. COMPLICATIONS: None. RECOMMENDATIONS: 1. Resume anticoagulation. 2. Resume oral diet. 3. Followup biopsy results. Kalin Hall M.D. DR: Pia JOB#: [id number] CC: CATALINO
[2018-05-13] MEDS: LORazepam 1mg tab ORAL PRN (23:40)
[2018-05-14] VITALS: BP 124/67
--- NOTE | 2018-05-14 03:30 | Progress Note ---
DATE: 05/13/2018 CARDIOLOGY PROGRESS NOTE SUBJECTIVE: The patient had her panendoscopy today without complications. Diminutive polyp was noted and a hiatal hernia with some mild hemorrhoids, but no active bleeding. The patient is back on an oral diet. OBJECTIVE: VITAL SIGNS: Blood pressure 133/70, pulse 84, and respirations 20. Afebrile. LUNGS: Clear. CARDIAC: Regular. Normal S1, S2. ABDOMEN: Soft. EXTREMITIES: No edema. Left BKA. IMPRESSION: 1. Resolved gastrointestinal bleeding. 2. History of deep venous thrombosis. 3. Permanent pacemaker. 4. Hypertensive heart disease. 5. Renal transplant. 6. Chronic diastolic congestive heart failure. PLAN: 1. Restart rivaroxaban. 2. Monitor for recurring bleeding. 3. Monitor cardiovascular parameters and adjust antihypertensives accordingly. Matthew Tinajero M.D. DR: LALY JOB#: [id number] CC:
--- NOTE | 2018-05-14 03:30 | Progress Note ---
DATE: 05/12/2018 CARDIOLOGY PROGRESS NOTE Late entry for 05/12/2018. SUBJECTIVE: The patient is upset about her diet in preparation for her colonoscopy. She is hungry. She has no chest pain. She has not had any new bleeding. OBJECTIVE: VITAL SIGNS: Blood pressure 136/79, pulse 82, and respirations 20. LUNGS: Clear. CARDIAC: Regular. Normal S1, S2. ABDOMEN: Soft. EXTREMITIES: BKA stumps clean and dry. IMPRESSION: 1. Gastrointestinal bleed. 2. Anemia. 3. Renal transplant. 4. Permanent pacemaker. 5. Hypertensive heart disease. 6. Chronic diastolic congestive heart failure. 7. History of deep venous thrombosis PLAN: 1. Liquid diet. 2. Bowel prep. 3. endoscopy tomorrow. 4. Retitrate antihypertensives subsequent to colonoscopy. 5. Hold anti-platelet and anticoagulant therapy. Matthew Tinajero M.D. DR: LALY JOB#: [id number] CC:
[2018-05-14 04:00] VITALS: BP 122/79
[2018-05-14] MEDS: HydrALAZINE 25mg tab ORAL SCH ×3 (05:12→21:58)
[2018-05-14] MEDS: Piperacillin/Tazobactam 3.375 GM in D5W 110 ML IVPB SCH ×3 (05:12→21:43)
[2018-05-14 07:45] LABS: BASOPHILS % (AUTO) 0.9 % (0.0-2.0); EOSINOPHILS % (AUTO) 0.5 % (0.0-3.0); HEMATOCRIT 36.1 % (37.0-47.0); HEMOGLOBIN 11.8 G/DL (12.0-16.0); LYMPHOCYTES % (AUTO) 39.3 % (20.0-45.0); MEAN CORPUSCULAR VOLUME 99 FL (80-99); MONOCYTES % (AUTO) 8.1 % (1.0-10.0); NEUTROPHILS % (AUTO) 51.2 % (45.0-75.0); PLATELET COUNT 158 K/UL (150-450); RED BLOOD COUNT 3.64 M/UL (4.20-5.40); RED CELL DISTRIBUTION WIDTH 13.9 % (11.6-14.8); WHITE BLOOD COUNT 5.9 K/UL (4.8-10.8)
[2018-05-14 08:00] VITALS: BP 114/71
[2018-05-14] MEDS: azaTHIOprine 50 MG TAB ORAL SCH (08:13)
[2018-05-14] MEDS: cycloSPORINE 100mg cap ORAL SCH ×2 (08:14→17:41)
[2018-05-14] MEDS: Magnesium Oxide 400mg tab ORAL SCH ×3 (08:14→17:41)
[2018-05-14] MEDS: Lyrica 50mg cap ORAL SCH ×2 (08:15→17:41)
[2018-05-14] MEDS: MS Contin 15mg tab ORAL SCH ×2 (08:15→20:42)
[2018-05-14 08:41] LABS: ANION GAP 11 mmol/L (5-15); BLOOD UREA NITROGEN 9 mg/dL (7-18); CALCIUM 9.5 MG/DL (8.5-10.1); CARBON DIOXIDE 20 MMOL/L (21-32); CHLORIDE 108 MMOL/L (98-107); CREATININE 1.1 MG/DL (0.55-1.30); POTASSIUM 4.1 MMOL/L (3.5-5.1); SODIUM 139 MMOL/L (136-145)
[2018-05-14] MEDS ORDERED: Metoprolol Succinate XL 25mg tab ORAL SCH (09:00)
[2018-05-14 12:00] VITALS: BP 131/69
--- NOTE | 2018-05-14 12:16 | General Progress Note ---
Assessment/Plan Status: stable, progressing Assessment/Plan encephalopathy due to [facility] [place] -ativan prn -seroquel Subjective Date patient seen: May 14, 2018 Neurologic/Psychiatric: Reports: anxiety, depressed, emotional problems Allergies: Coded Allergies: No Known Allergies (Verified , 05/29/09) Objective Last 24 Hour Vital Signs Date Time Temp Pulse Resp B/P (MAP) Pulse Ox O2 Delivery O2 Flow Rate FiO2 05/14/18 12:00 97.9 83 16 131/69 (89) 95 97.9 05/14/18 09:00 Room Air 05/14/18 08:14 79 114/71 05/14/18 08:14 79 114/71 05/14/18 08:00 98.0 79 20 114/71 (85) 97 98.0 05/14/18 08:00 80 05/14/18 05:12 122/79 05/14/18 04:00 89 05/14/18 04:00 97.9 82 20 122/79 (93) 98 97.9 05/14/18 00:00 68 05/14/18 00:00 97.6 82 20 124/67 (86) 96 97.6 05/13/18 21:15 133/70 05/13/18 21:00 Room Air 05/13/18 20:00 98.0 84 20 133/70 (91) 98 98.0 05/13/18 20:00 82 05/13/18 16:00 97.5 87 20 141/81 (101) 99 97.5 05/13/18 16:00 75 05/13/18 13:56 160/93 Intake and Output 05/13/18 05/14/18 19:00 07:00 Intake Total 1381.00 ml 259.5 ml Output Total 0 ml 0 ml Balance 1381.00 ml 259.5 ml Intake Oral 260 ml 100 ml IV Total 1121.00 ml 159.5 ml Estimated Blood Loss 0 ml 0 ml # Voids 4 1 # Bowel Movements 1 Laboratory Tests 05/14/18 07:10: White Blood Count 5.9#, Red Blood Count 3.64L, Hemoglobin 11.8L, Hematocrit 36.1L, Mean Corpuscular Volume 99, Mean Corpuscular Hemoglobin 32.4H, Mean Corpuscular Hemoglobin Concent 32.7, Red Cell Distribution Width 13.9, Platelet Count 158, Mean Platelet Volume 9.0, Neutrophils (%) (Auto) 51.2, Lymphocytes (% ) (Auto) 39.3, Monocytes (%) (Auto) 8.1, Eosinophils (%) (Auto) 0.5, Basophils ( %) (Auto) 0.9, Sodium Level 139, Potassium Level 4.1, Chloride Level 108H, Carbon Dioxide Level 20L, Anion Gap 11, Blood Urea Nitrogen 9, Creatinine 1.1, Estimat Glomerular Filtration Rate , Glucose Level 100, Calcium Level 9.5, Magnesium Level 1.7L Height (Feet): 5 Height (Inches): 5.00 Weight (Pounds): 144 General Appearance: alert Neurologic: oriented x 3, responsive, depressed affect Syeda Price MD May 14, 2018 12:16
--- NOTE | 2018-05-14 14:08 | General Progress Note ---
Assessment/Plan Assessment/Plan Assessment - GIB - anemia - hypomagnesemia - likely from GI prep - PVD - DM - a fib / pacer - s/p KRT - 3 cm hiatal hernia - diminutive polyp at 40 cm, hemorrhoids Recommendations - Push po - anticoagulation - follow symptoms - RTC 5 years for next exam Recommend restart PO diet and anticoagulation If bleeds again, may need hemorrhoidal treatment Subjective Allergies: Coded Allergies: No Known Allergies (Verified , 05/29/09) Subjective Feels OK d/w patient re procedure results eating OK no further bleeding Objective Last 24 Hour Vital Signs Date Time Temp Pulse Resp B/P (MAP) Pulse Ox O2 Delivery O2 Flow Rate FiO2 05/14/18 13:17 131/69 05/14/18 12:00 97.9 83 16 131/69 (89) 95 97.9 05/14/18 12:00 76 05/14/18 09:00 Room Air 05/14/18 08:14 79 114/71 05/14/18 08:14 79 114/71 05/14/18 08:00 98.0 79 20 114/71 (85) 97 98.0 05/14/18 08:00 80 05/14/18 05:12 122/79 05/14/18 04:00 89 05/14/18 04:00 97.9 82 20 122/79 (93) 98 97.9 05/14/18 00:00 68 05/14/18 00:00 97.6 82 20 124/67 (86) 96 97.6 05/13/18 21:15 133/70 05/13/18 21:00 Room Air 05/13/18 20:00 98.0 84 20 133/70 (91) 98 98.0 05/13/18 20:00 82 05/13/18 16:00 97.5 87 20 141/81 (101) 99 97.5 05/13/18 16:00 75 Intake and Output 05/13/18 05/14/18 19:00 07:00 Intake Total 1381.00 ml 259.5 ml Output Total 0 ml 0 ml Balance 1381.00 ml 259.5 ml Intake Oral 260 ml 100 ml IV Total 1121.00 ml 159.5 ml Estimated Blood Loss 0 ml 0 ml # Voids 4 1 # Bowel Movements 1 Laboratory Tests 05/14/18 07:10: White Blood Count 5.9#, Red Blood Count 3.64L, Hemoglobin 11.8L, Hematocrit 36.1L, Mean Corpuscular Volume 99, Mean Corpuscular Hemoglobin 32.4H, Mean Corpuscular Hemoglobin Concent 32.7, Red Cell Distribution Width 13.9, Platelet Count 158, Mean Platelet Volume 9.0, Neutrophils (%) (Auto) 51.2, Lymphocytes (% ) (Auto) 39.3, Monocytes (%) (Auto) 8.1, Eosinophils (%) (Auto) 0.5, Basophils ( %) (Auto) 0.9, Sodium Level 139, Potassium Level 4.1, Chloride Level 108H, Carbon Dioxide Level 20L, Anion Gap 11, Blood Urea Nitrogen 9, Creatinine 1.1, Estimat Glomerular Filtration Rate , Glucose Level 100, Calcium Level 9.5, Magnesium Level 1.7L Height (Feet): 5 Height (Inches): 5.00 Weight (Pounds): 144 Objective WDWNAA woman NCAT supple CTA RRR soft ND NT (+) Kalin Spivey MD May 14, 2018 14:08
[2018-05-14] MEDS: HYDROcodone/Acetamin 10/325 tab ORAL PRN (15:08)
--- NOTE | 2018-05-14 15:45 | General Progress Note ---
Assessment/Plan Problem List: (1) DVT (deep venous thrombosis) ICD Codes: I82.409 - Acute embolism and thrombosis of unspecified deep veins of unspecified lower extremity SNOMED: 306177944 (2) Acute GI bleeding ICD Codes: K92.2 - Gastrointestinal hemorrhage, unspecified SNOMED: 64160521 (3) Phantom limb pain ICD Codes: G54.6 - Phantom limb syndrome with pain SNOMED: 7822122246274 (4) Coagulopathy (5) Urinary tract infection (6) Peripheral vascular disease ICD Codes: I73.9 - Peripheral vascular disease, unspecified SNOMED: 189270106 Status: stable, progressing Assessment/Plan ppi rx resume anticoah monitor h.h pain rx monitor renal fxn transplant meds per renal cont iv abx till tomorrow check cdiff lomotil as needed dc planning tomorrow if diarrhea better Subjective ROS Limited/Unobtainable: No Constitutional: Reports: malaise, weakness HEENT: Reports: no symptoms Cardiovascular: Reports: no symptoms Respiratory: Reports: no symptoms Gastrointestinal/Abdominal: Reports: diarrhea, rectal bleeding Genitourinary: Reports: no symptoms Neurologic/Psychiatric: Reports: no symptoms Endocrine: Reports: no symptoms Hematologic/Lymphatic: Reports: no symptoms Allergies: Coded Allergies: No Known Allergies (Verified , 05/29/09) Subjective states bleeding is improved. h/h stable. pain controlled. on clears. endoscopy results noted. c/o diarrhea Objective Last 24 Hour Vital Signs Date Time Temp Pulse Resp B/P (MAP) Pulse Ox O2 Delivery O2 Flow Rate FiO2 05/14/18 13:17 131/69 05/14/18 12:00 97.9 83 16 131/69 (89) 95 97.9 05/14/18 12:00 76 05/14/18 09:00 Room Air 05/14/18 08:14 79 114/71 05/14/18 08:14 79 114/71 05/14/18 08:00 98.0 79 20 114/71 (85) 97 98.0 05/14/18 08:00 80 05/14/18 05:12 122/79 05/14/18 04:00 89 05/14/18 04:00 97.9 82 20 122/79 (93) 98 97.9 05/14/18 00:00 68 8/10/18 00:00 97.6 82 20 124/67 (86) 96 97.6 05/13/18 21:15 133/70 05/13/18 21:00 Room Air 05/13/18 20:00 98.0 84 20 133/70 (91) 98 98.0 05/13/18 20:00 82 05/13/18 16:00 97.5 87 20 141/81 (101) 99 97.5 05/13/18 16:00 75 Intake and Output 05/13/18 05/14/18 19:00 07:00 Intake Total 1381.00 ml 259.5 ml Output Total 0 ml 0 ml Balance 1381.00 ml 259.5 ml Intake Oral 260 ml 100 ml IV Total 1121.00 ml 159.5 ml Estimated Blood Loss 0 ml 0 ml # Voids 4 1 # Bowel Movements 1 Laboratory Tests 05/14/18 07:10: White Blood Count 5.9#, Red Blood Count 3.64L, Hemoglobin 11.8L, Hematocrit 36.1L, Mean Corpuscular Volume 99, Mean Corpuscular Hemoglobin 32.4H, Mean Corpuscular Hemoglobin Concent 32.7, Red Cell Distribution Width 13.9, Platelet Count 158, Mean Platelet Volume 9.0, Neutrophils (%) (Auto) 51.2, Lymphocytes (% ) (Auto) 39.3, Monocytes (%) (Auto) 8.1, Eosinophils (%) (Auto) 0.5, Basophils ( %) (Auto) 0.9, Sodium Level 139, Potassium Level 4.1, Chloride Level 108H, Carbon Dioxide Level 20L, Anion Gap 11, Blood Urea Nitrogen 9, Creatinine 1.1, Estimat Glomerular Filtration Rate , Glucose Level 100, Calcium Level 9.5, Magnesium Level 1.7L Height (Feet): 5 Height (Inches): 5.00 Weight (Pounds): 144 Objective GENERAL: The patient is well developed, no apparent distress. HEART: Regular rate and rhythm. LUNGS: Lungs are clear. ABDOMEN: Soft, nontender and nondistended. EXTREMITIES: Without cyanosis. 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 John Red MD May 14, 2018 15:45
[2018-05-14 16:00] VITALS: BP 121/58
[2018-05-14] MEDS ORDERED: Lomotil 2.5mg tab ORAL PRN (16:00)
[2018-05-14] MEDS ORDERED: Xarelto 15mg tab ORAL SCH (16:30)
[2018-05-14] MEDS ORDERED: LORazepam 1mg tab ORAL PRN (18:00)
[2018-05-14] MEDS ORDERED: Artificial Tears 1.4% Op Soln BOTH EYES PRN (18:00)
[2018-05-14 20:00] VITALS: BP 143/71
[2018-05-15] VITALS: BP 140/82
[2018-05-15 04:00] VITALS: BP 140/70
[2018-05-15] MEDS: Piperacillin/Tazobactam 3.375 GM in D5W 110 ML IVPB SCH ×3 (05:25→22:07)
[2018-05-15] MEDS: HydrALAZINE 25mg tab ORAL SCH ×3 (06:10→21:28)
[2018-05-15] MEDS: HYDROcodone/Acetamin 10/325 tab ORAL PRN ×2 (06:11→12:58)
--- NOTE | 2018-05-15 07:30 | General Progress Note ---
Assessment/Plan Problem List: (1) DVT (deep venous thrombosis) ICD Codes: I82.409 - Acute embolism and thrombosis of unspecified deep veins of unspecified lower extremity SNOMED: 419805620 (2) Acute GI bleeding ICD Codes: K92.2 - Gastrointestinal hemorrhage, unspecified SNOMED: 54345143 (3) Phantom limb pain ICD Codes: G54.6 - Phantom limb syndrome with pain SNOMED: 0668576275045 (4) Coagulopathy (5) Urinary tract infection (6) Peripheral vascular disease ICD Codes: I73.9 - Peripheral vascular disease, unspecified SNOMED: 100434348 Status: stable, progressing Assessment/Plan ppi rx resume anticoag monitor h.h/monitor for bleeding pain rx monitor renal fxn transplant meds per renal cont iv abx till tomorrow check cdiff lomotil as needed Subjective ROS Limited/Unobtainable: No Constitutional: Reports: malaise, weakness HEENT: Reports: no symptoms Cardiovascular: Reports: no symptoms Respiratory: Reports: no symptoms Gastrointestinal/Abdominal: Reports: diarrhea Genitourinary: Reports: no symptoms Neurologic/Psychiatric: Reports: no symptoms Endocrine: Reports: no symptoms Hematologic/Lymphatic: Reports: no symptoms Allergies: Coded Allergies: No Known Allergies (Verified , 05/29/09) All Systems: reviewed and negative except above Subjective no bleeding. still with diarrhea. given lomotil without improvement. no fever or chills. no chest pain. Objective Last 24 Hour Vital Signs Date Time Temp Pulse Resp B/P (MAP) Pulse Ox O2 Delivery O2 Flow Rate FiO2 05/15/18 06:10 140/70 05/15/18 04:00 97.0 77 20 140/70 (93) 98 97.0 05/15/18 00:00 97.5 88 20 140/82 (101) 98 97.5 05/14/18 21:58 143/71 05/14/18 21:00 Room Air 05/14/18 20:00 98.4 92 20 143/71 (95) 100 98.4 05/14/18 16:00 89 05/14/18 16:00 98.0 89 20 121/58 (79) 94 98.0 05/14/18 13:17 131/69 05/14/18 12:00 97.9 83 16 131/69 (89) 95 97.9 05/14/18 12:00 76 05/14/18 09:00 Room Air 05/14/18 08:14 79 114/71 05/14/18 08:14 79 114/71 05/14/18 08:00 98.0 79 20 114/71 (85) 97 98.0 05/14/18 08:00 80 Intake and Output 05/14/18 05/15/18 19:00 07:00 Intake Total 660.5 ml Balance 660.5 ml Intake Oral 490 ml IV Total 170.5 ml # Voids 1 # Bowel Movements 7 Height (Feet): 5 Height (Inches): 5.00 Weight (Pounds): 144 Objective GENERAL: The patient is well developed, no apparent distress. HEART: Regular rate and rhythm. LUNGS: Lungs are clear. ABDOMEN: Soft, nontender and nondistended. EXTREMITIES: Without cyanosis. 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 John Red MD May 15, 2018 07:30
[2018-05-15 08:00] VITALS: BP 142/85
[2018-05-15] MEDS: cycloSPORINE 100mg cap ORAL SCH ×2 (09:01→17:08)
[2018-05-15] MEDS: Lyrica 50mg cap ORAL SCH ×2 (09:01→17:09)
[2018-05-15] MEDS: Metoprolol Succinate XL 50mg tab ORAL SCH (09:02)
[2018-05-15] MEDS: Magnesium Oxide 400mg tab ORAL SCH ×3 (09:02→17:08)
[2018-05-15] MEDS: azaTHIOprine 50 MG TAB ORAL SCH (09:02)
[2018-05-15] MEDS: MS Contin 15mg tab ORAL SCH ×2 (09:03→21:29)
[2018-05-15 12:00] VITALS: BP 149/71
--- NOTE | 2018-05-15 12:52 | General Progress Note ---
Assessment/Plan Assessment/Plan Assessment - GIB - anemia - hypomagnesemia - likely from GI prep - PVD - DM - a fib / pacer - s/p KRT - 3 cm hiatal hernia - diminutive polyp at 40 cm, hemorrhoids Recommendations - Push po - anticoagulation - follow symptoms - RTC 5 years for next exam Subjective Allergies: Coded Allergies: No Known Allergies (Verified , 05/29/09) Subjective Feels OK eating OK no further bleeding Objective Last 24 Hour Vital Signs Date Time Temp Pulse Resp B/P (MAP) Pulse Ox O2 Delivery O2 Flow Rate FiO2 05/15/18 12:00 97.7 18 149/71 (97) 97 97.7 05/15/18 09:02 70 142/85 05/15/18 09:02 70 142/85 05/15/18 09:00 Room Air 05/15/18 08:00 98.1 89 18 142/85 (104) 99 98.1 05/15/18 06:10 140/70 05/15/18 04:00 97.0 77 20 140/70 (93) 98 97.0 05/15/18 00:00 97.5 88 20 140/82 (101) 98 97.5 05/14/18 21:58 143/71 05/14/18 21:00 Room Air 05/14/18 20:00 98.4 92 20 143/71 (95) 100 98.4 05/14/18 16:00 89 05/14/18 16:00 98.0 89 20 121/58 (79) 94 98.0 05/14/18 13:17 131/69 Intake and Output 05/14/18 05/15/18 19:00 07:00 Intake Total 660.5 ml 27.5 ml Balance 660.5 ml 27.5 ml Intake Oral 490 ml IV Total 170.5 ml 27.5 ml # Voids 1 2 # Bowel Movements 7 1 Height (Feet): 5 Height (Inches): 5.00 Weight (Pounds): 144 Objective WDWNAA woman NCAT supple CTA RRR soft ND NT (+) Kalin Spivey MD May 15, 2018 12:52
[2018-05-15 16:00] VITALS: BP 132/77
[2018-05-15] MEDS: Xarelto 15mg tab ORAL SCH (17:08)
[2018-05-15] MEDS: Lomotil 2.5mg tab ORAL PRN (17:09)
[2018-05-15 19:57] VITALS: BP 125/69
[2018-05-16] VITALS: BP 124/64
[2018-05-16 04:00] VITALS: BP_SYST 133; BP_SYST 150; BP_DIAS 66; BP_DIAS 80
[2018-05-16] MEDS: Piperacillin/Tazobactam 3.375 GM in D5W 110 ML IVPB SCH (05:31)
[2018-05-16] MEDS: HydrALAZINE 25mg tab ORAL SCH ×3 (06:02→22:41)
[2018-05-16 06:55] LABS: BASOPHILS % (AUTO) 1.5 % (0.0-2.0); EOSINOPHILS % (AUTO) 1.2 % (0.0-3.0); HEMATOCRIT 32.3 % (37.0-47.0); HEMOGLOBIN 10.6 G/DL (12.0-16.0); LYMPHOCYTES % (AUTO) 38.4 % (20.0-45.0); MEAN CORPUSCULAR VOLUME 99 FL (80-99); MONOCYTES % (AUTO) 10.6 % (1.0-10.0); NEUTROPHILS % (AUTO) 48.3 % (45.0-75.0); PLATELET COUNT 124 K/UL (150-450); RED BLOOD COUNT 3.26 M/UL (4.20-5.40); RED CELL DISTRIBUTION WIDTH 13.7 % (11.6-14.8)
[2018-05-16 07:15] LABS: ALANINE AMINOTRANSFERASE 21 U/L (12-78); ALBUMIN 2.7 G/DL (3.4-5.0); ALBUMIN/GLOBULIN RATIO 0.7 (1.0-2.7); ALKALINE PHOSPHATASE 68 U/L (46-116); ANION GAP 8 mmol/L (5-15); ASPARTATE AMINO TRANSFERASE 40 U/L (15-37); BILIRUBIN,TOTAL 0.4 MG/DL (0.2-1.0); BLOOD UREA NITROGEN 20 mg/dL (7-18); CALCIUM 9.4 MG/DL (8.5-10.1); CARBON DIOXIDE 24 MMOL/L (21-32); CHLORIDE 109 MMOL/L (98-107); CREATININE 1.1 MG/DL (0.55-1.30); POTASSIUM 4.4 MMOL/L (3.5-5.1); SODIUM 141 MMOL/L (136-145)
[2018-05-16 08:00] VITALS: BP 142/75
--- NOTE | 2018-05-16 08:35 | General Progress Note ---
Assessment/Plan Problem List: (1) DVT (deep venous thrombosis) ICD Codes: I82.409 - Acute embolism and thrombosis of unspecified deep veins of unspecified lower extremity SNOMED: 221925550 (2) Acute GI bleeding ICD Codes: K92.2 - Gastrointestinal hemorrhage, unspecified SNOMED: 54124752 (3) Phantom limb pain ICD Codes: G54.6 - Phantom limb syndrome with pain SNOMED: 7016734364165 (4) Coagulopathy (5) Urinary tract infection (6) Peripheral vascular disease ICD Codes: I73.9 - Peripheral vascular disease, unspecified SNOMED: 429432744 Status: stable, progressing Status Narrative monitor h/h cdiff will try to change abx to im dc planning Assessment/Plan ppi rx resume anticoag monitor h.h/monitor for bleeding pain rx monitor renal fxn transplant meds per renal cont iv abx till tomorrow check cdiff lomotil as needed Subjective ROS Limited/Unobtainable: No Constitutional: Reports: malaise, weakness HEENT: Reports: no symptoms Cardiovascular: Reports: no symptoms Respiratory: Reports: no symptoms Gastrointestinal/Abdominal: Reports: no symptoms Genitourinary: Reports: no symptoms Neurologic/Psychiatric: Reports: no symptoms Endocrine: Reports: no symptoms Hematologic/Lymphatic: Reports: no symptoms Allergies: Coded Allergies: No Known Allergies (Verified , 05/29/09) All Systems: reviewed and negative except above Subjective still with diarrhea. +black stools. can get IV. Objective Last 24 Hour Vital Signs Date Time Temp Pulse Resp B/P (MAP) Pulse Ox O2 Delivery O2 Flow Rate FiO2 05/16/18 06:02 133/66 05/16/18 05:26 Room Air 05/16/18 04:00 97.9 18 133/66 (88) 97 97.9 05/16/18 00:00 97.0 18 124/64 (84) 98 97.0 05/15/18 21:28 125/69 05/15/18 21:00 Room Air 05/15/18 19:57 97.7 17 125/69 (87) 98 97.7 05/15/18 16:00 97.9 18 132/77 (95) 100 97.9 05/15/18 13:56 149/71 05/15/18 12:00 97.7 18 149/71 (97) 97 97.7 05/15/18 09:02 70 142/85 05/15/18 09:02 70 142/85 05/15/18 09:00 Room Air Intake and Output 05/15/18 05/16/18 19:00 07:00 Intake Total 715.0 ml 137.5 ml Balance 715.0 ml 137.5 ml IV Total 165.0 ml 137.5 ml Other 550 ml # Voids 3 2 # Bowel Movements 1 3 Laboratory Tests 05/16/18 05:50: White Blood Count 4.0L, Red Blood Count 3.26L, Hemoglobin 10.6L, Hematocrit 32.3L, Mean Corpuscular Volume 99, Mean Corpuscular Hemoglobin 32.7H, Mean Corpuscular Hemoglobin Concent 32.9, Red Cell Distribution Width 13.7, Platelet Count 124L, Mean Platelet Volume 9.0, Neutrophils (%) (Auto) 48.3, Lymphocytes ( %) (Auto) 38.4, Monocytes (%) (Auto) 10.6H, Eosinophils (%) (Auto) 1.2, Basophils (%) (Auto) 1.5, Sodium Level 141, Potassium Level 4.4, Chloride Level 109H, Carbon Dioxide Level 24, Anion Gap 8, Blood Urea Nitrogen 20H, Creatinine 1.1, Estimat Glomerular Filtration Rate , Glucose Level 96, Calcium Level 9.4, Magnesium Level 1.8, Total Bilirubin 0.4, Aspartate Amino Transf (AST/SGOT) 40H , Alanine Aminotransferase (ALT/SGPT) 21, Alkaline Phosphatase 68, Total Protein 6.7, Albumin 2.7L, Globulin 4.0, Albumin/Globulin Ratio 0.7L Height (Feet): 5 Height (Inches): 5.00 Weight (Pounds): 144 Objective GENERAL: The patient is well developed, no apparent distress. HEART: Regular rate and rhythm. LUNGS: Lungs are clear. ABDOMEN: Soft, nontender and nondistended. EXTREMITIES: Without cyanosis. 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 John Red MD May 16, 2018 08:35
[2018-05-16] MEDS ORDERED: Ertapenem 1 GM in NS 55 ML IVPB SCH (08:45)
[2018-05-16] MEDS ORDERED: Ertapenem (INVanz) 1gm Inj IM SCH (10:00)
[2018-05-16] MEDS ORDERED: Lidocaine 1% MPF 10mg/ml 5ml IM SCH (10:00)
[2018-05-16] MEDS: azaTHIOprine 50 MG TAB ORAL SCH (10:37)
[2018-05-16] MEDS: Magnesium Oxide 400mg tab ORAL SCH ×3 (10:38→17:30)
[2018-05-16] MEDS: cycloSPORINE 100mg cap ORAL SCH ×2 (10:39→17:31)
[2018-05-16] MEDS: Metoprolol Succinate XL 50mg tab ORAL SCH (10:39)
[2018-05-16] MEDS: Lyrica 50mg cap ORAL SCH ×2 (10:39→17:30)
[2018-05-16] MEDS: MS Contin 15mg tab ORAL SCH ×2 (10:49→21:42)
[2018-05-16 12:00] VITALS: BP 124/67
--- NOTE | 2018-05-16 15:38 | General Progress Note ---
Assessment/Plan Assessment/Plan Assessment - GIB - anemia - hypomagnesemia - likely from GI prep - PVD - DM - a fib / pacer - s/p KRT - 3 cm hiatal hernia - diminutive polyp at 40 cm, hemorrhoids Recommendations - Push po - anticoagulation - dc planning - follow symptoms - RTC 5 years for next exam Subjective Allergies: Coded Allergies: No Known Allergies (Verified , 05/29/09) Subjective Feels OK eating OK no further bleeding Objective Last 24 Hour Vital Signs Date Time Temp Pulse Resp B/P (MAP) Pulse Ox O2 Delivery O2 Flow Rate FiO2 05/16/18 13:25 124/67 05/16/18 12:00 98.1 76 18 124/67 (86) 98 98.1 05/16/18 11:48 98.1 05/16/18 10:49 98.1 05/16/18 10:39 77 142/75 05/16/18 10:38 77 142/75 05/16/18 09:00 Room Air 05/16/18 08:00 98.1 77 17 142/75 (97) 100 98.1 05/16/18 06:02 133/66 05/16/18 05:26 Room Air 05/16/18 04:00 97.9 18 133/66 (88) 97 97.9 05/16/18 00:00 97.0 18 124/64 (84) 98 97.0 05/15/18 21:28 125/69 05/15/18 21:00 Room Air 05/15/18 19:57 97.7 17 125/69 (87) 98 97.7 05/15/18 16:00 97.9 18 132/77 (95) 100 97.9 Intake and Output 05/15/18 05/16/18 19:00 07:00 Intake Total 715.0 ml 137.5 ml Balance 715.0 ml 137.5 ml IV Total 165.0 ml 137.5 ml Other 550 ml # Voids 3 2 # Bowel Movements 1 3 Laboratory Tests 05/16/18 05:50: White Blood Count 4.0L, Red Blood Count 3.26L, Hemoglobin 10.6L, Hematocrit 32.3L, Mean Corpuscular Volume 99, Mean Corpuscular Hemoglobin 32.7H, Mean Corpuscular Hemoglobin Concent 32.9, Red Cell Distribution Width 13.7, Platelet Count 124L, Mean Platelet Volume 9.0, Neutrophils (%) (Auto) 48.3, Lymphocytes ( %) (Auto) 38.4, Monocytes (%) (Auto) 10.6H, Eosinophils (%) (Auto) 1.2, Basophils (%) (Auto) 1.5, Sodium Level 141, Potassium Level 4.4, Chloride Level 109H, Carbon Dioxide Level 24, Anion Gap 8, Blood Urea Nitrogen 20H, Creatinine 1.1, Estimat Glomerular Filtration Rate , Glucose Level 96, Calcium Level 9.4, Magnesium Level 1.8, Total Bilirubin 0.4, Aspartate Amino Transf (AST/SGOT) 40H , Alanine Aminotransferase (ALT/SGPT) 21, Alkaline Phosphatase 68, Total Protein 6.7, Albumin 2.7L, Globulin 4.0, Albumin/Globulin Ratio 0.7L Height (Feet): 5 Height (Inches): 5.00 Weight (Pounds): 144 Objective WDWNAA woman NCAT supple CTA RRR soft ND NT (+) Kalin Spivey MD May 16, 2018 15:38
[2018-05-16 15:56] VITALS: BP 119/59
[2018-05-16] MEDS: Xarelto 15mg tab ORAL SCH (17:30)
[2018-05-16 20:00] VITALS: BP 112/56
[2018-05-17] VITALS: BP 132/63
[2018-05-17 04:00] VITALS: BP 129/69
[2018-05-17] MEDS: HydrALAZINE 25mg tab ORAL SCH ×2 (06:16→14:20)
[2018-05-17 08:00] VITALS: BP 142/70
[2018-05-17] MEDS: azaTHIOprine 50 MG TAB ORAL SCH (09:39)
[2018-05-17] MEDS: Metoprolol Succinate XL 50mg tab ORAL SCH (09:39)
[2018-05-17] MEDS: Magnesium Oxide 400mg tab ORAL SCH ×3 (09:39→17:49)
[2018-05-17] MEDS: cycloSPORINE 100mg cap ORAL SCH ×2 (09:40→17:49)
[2018-05-17] MEDS: MS Contin 15mg tab ORAL SCH (09:42)
[2018-05-17] MEDS: Lyrica 50mg cap ORAL SCH ×2 (09:44→17:50)
[2018-05-17] MEDS ORDERED: Loperamide 2mg cap ORAL PRN ×2 (10:15→10:30)
[2018-05-17 12:00] VITALS: BP 138/72
[2018-05-17] MEDS: Lomotil 2.5mg tab ORAL PRN (12:29)
[2018-05-17 16:00] VITALS: BP 113/68
--- NOTE | 2018-05-17 17:05 | General Progress Note ---
Assessment/Plan Problem List: (1) DVT (deep venous thrombosis) ICD Codes: I82.409 - Acute embolism and thrombosis of unspecified deep veins of unspecified lower extremity SNOMED: 306825073 (2) Acute GI bleeding ICD Codes: K92.2 - Gastrointestinal hemorrhage, unspecified SNOMED: 53201867 (3) Phantom limb pain ICD Codes: G54.6 - Phantom limb syndrome with pain SNOMED: 4761295095321 (4) Coagulopathy (5) Urinary tract infection (6) Peripheral vascular disease ICD Codes: I73.9 - Peripheral vascular disease, unspecified SNOMED: 265043217 Status: stable, progressing Assessment/Plan ppi rx resume anticoag monitor h.h/monitor for bleeding pain rx monitor renal fxn transplant meds per renal cont iv abx till tomorrow cdiffneg x 2 lomotil as needed added immodium today suspect diarrhea due to prior prep. anticipate improvement soon Subjective ROS Limited/Unobtainable: No Constitutional: Reports: malaise, weakness HEENT: Reports: no symptoms Cardiovascular: Reports: no symptoms Respiratory: Reports: no symptoms Gastrointestinal/Abdominal: Reports: diarrhea Genitourinary: Reports: no symptoms Neurologic/Psychiatric: Reports: no symptoms Endocrine: Reports: no symptoms Hematologic/Lymphatic: Reports: no symptoms Allergies: Coded Allergies: No Known Allergies (Verified , 05/29/09) All Systems: reviewed and negative except above Subjective still with intractable diarrhea. had black stool last nigh butt diarrhea has mostly brown now. Objective Last 24 Hour Vital Signs Date Time Temp Pulse Resp B/P (MAP) Pulse Ox O2 Delivery O2 Flow Rate FiO2 05/17/18 16:00 97.7 88 20 113/68 (83) 97 97.7 05/17/18 14:20 138/72 05/17/18 12:00 98.5 85 20 138/72 (94) 99 98.5 05/17/18 10:41 98.6 05/17/18 09:45 87 142/70 05/17/18 09:42 98.6 05/17/18 09:39 87 142/70 05/17/18 09:00 Room Air 05/17/18 08:00 98.6 87 20 142/70 (94) 100 98.6 05/17/18 06:16 145/73 05/17/18 04:00 98.7 79 20 129/69 (89) 96 98.7 05/17/18 00:00 98.4 81 18 132/63 (86) 94 98.4 05/16/18 22:41 143/74 05/16/18 21:42 99.1 05/16/18 21:00 Room Air 05/16/18 20:00 99.1 77 20 112/56 (74) 95 99.1 Intake and Output 05/16/18 05/17/18 19:00 07:00 Intake Total 0 ml 1790 ml Balance 0 ml 1790 ml Intake Oral 540 ml IV Total 0 ml Other 1250 ml # Voids 6 # Bowel Movements 2 Height (Feet): 5 Height (Inches): 5.00 Weight (Pounds): 144 Objective GENERAL: The patient is well developed, no apparent distress. HEART: Regular rate and rhythm. LUNGS: Lungs are clear. ABDOMEN: Soft, nontender and nondistended. EXTREMITIES: Without cyanosis. 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 John Red MD May 17, 2018 17:05
[2018-05-17] MEDS: HYDROcodone/Acetamin 10/325 tab ORAL PRN (17:49)
[2018-05-17] MEDS: Xarelto 15mg tab ORAL SCH (17:50)
--- NOTE | 2018-05-17 20:52 | General Progress Note ---
Assessment/Plan Assessment/Plan Assessment - GIB - anemia - hypomagnesemia - likely from GI prep - PVD - DM - a fib / pacer - s/p KRT - 3 cm hiatal hernia - diminutive polyp at 40 cm, hemorrhoids Recommendations - Push po - anticoagulation - dc planning - follow symptoms - RTC 5 years for next exam Subjective Allergies: Coded Allergies: No Known Allergies (Verified , 05/29/09) Subjective Feels OK eating OK no further bleeding Objective Last 24 Hour Vital Signs Date Time Temp Pulse Resp B/P (MAP) Pulse Ox O2 Delivery O2 Flow Rate FiO2 05/17/18 17:49 97.7 05/17/18 16:00 97.7 88 20 113/68 (83) 97 97.7 05/17/18 14:20 138/72 05/17/18 12:00 98.5 85 20 138/72 (94) 99 98.5 05/17/18 10:41 98.6 05/17/18 09:45 87 142/70 05/17/18 09:42 98.6 05/17/18 09:39 87 142/70 05/17/18 09:00 Room Air 05/17/18 08:00 98.6 87 20 142/70 (94) 100 98.6 05/17/18 06:16 145/73 05/17/18 04:00 98.7 79 20 129/69 (89) 96 98.7 05/17/18 00:00 98.4 81 18 132/63 (86) 94 98.4 05/16/18 22:41 143/74 05/16/18 21:42 99.1 05/16/18 21:00 Room Air Intake and Output 05/16/18 05/17/18 19:00 07:00 Intake Total 0 ml 1790 ml Balance 0 ml 1790 ml Intake Oral 540 ml IV Total 0 ml Other 1250 ml # Voids 6 # Bowel Movements 2 Height (Feet): 5 Height (Inches): 5.00 Weight (Pounds): 144 Objective W[place]NAA woman NCAT supple CTA RRR soft ND NT (+) Kalin Spivey MD May 17, 2018 20:52
--- NOTE | 2018-05-18 10:55 | Progress Note ---
DATE: 05/16/2018 CARDIOLOGY PROGRESS NOTE SUBJECTIVE: The patient still has diarrhea. Black stools are noted. IV access is poor. OBJECTIVE: VITAL SIGNS: Blood pressure 133/66, heart rate 70, respirations 18, and afebrile LUNGS: Clear. CARDIAC: Regular rate and rhythm. Normal S1 and S2. ABDOMEN: Soft. Trace edema 1. LABORATORY DATA: White count 4 and hemoglobin 10.6. Potassium 4.4, BUN 20, and creatinine 1.1. Magnesium 1.8. Albumin 2.7. IMPRESSION: 1. Status post gastrointestinal bleed. 2. History of deep venous thrombosis . 3. Hypomagnesemia. 4. Hypertensive heart disease. 5. Permanent pacemaker. 6. Left below-knee amputation, peripheral artery disease. 7. Insulin-requiring diabetes mellitus. 8. Renal transplant. PLAN: 1. Cautious anticoagulation. 2. Monitor hemoglobin. 3. Replace magnesium. 4. Antimicrobials. 5. Follow up laboratory studies. Matthew Tinajero M.D. DR: MARKO JOB#: [id number] CC:
--- NOTE | 2018-05-18 10:55 | Progress Note ---
DATE: 05/15/2018 CARDIOLOGY PROGRESS NOTE Late entry for 05/15/2018 SUBJECTIVE: The patient still has significant diarrhea, unresponsive to Lomotil. She has been restarted on anticoagulation with no new bleeding noted. OBJECTIVE: VITAL SIGNS: Afebrile, 140/70, 77, and 20. NECK: Supple. LUNGS: Clear. CARDIAC: Regular. Normal S1 and S2. ABDOMEN: Soft and mildly tender. No guarding or rebound. Transplant site noted without any skin breakdown. EXTREMITIES: Left BKA stump. IMPRESSION: 1. Diarrhea. 2. Permanent pacemaker. 3. Deep venous thrombosis, status post gastrointestinal bleeding. 4. Urinary tract infection. 5. Chronic pain syndrome. 6. Left below-knee amputation due to peripheral artery disease. PLAN: 1. Antimicrobials. 2. Stool for C. difficile to be checked. 3. Monitor for bleeding on anticoagulant. 4. Maintain adequate hydration in view of diarrhea and GI losses. 5. IV fluids may be added. 6. Maintain current antihypertensive regimen. 7. Avoid tighter blood pressure control. Matthew Tinajero M.D. DR: MARKO JOB#: [id number] CC:
--- NOTE | 2018-05-18 10:57 | Progress Note ---
DATE: 05/17/2018 CARDIOLOGY PROGRESS NOTE SUBJECTIVE: The patient is back on anticoagulation for several days now. She has some black stool yesterday, but diarrhea is brown today. No dizziness or chest pain. No palpitations. OBJECTIVE: VITAL SIGNS: Blood pressure 113/68, pulse 88, and respirations 20. NECK: Supple. LUNGS: Clear. CARDIAC: Regular rhythm and rate. Normal S1, S2 with a fourth heart sound. ABDOMEN: Soft and nontender. Noted transplant area. EXTREMITIES: With no edema. Left BKA stump clean and dry. LABORATORY AND DIAGNOSTIC DATA: No new laboratories today. IMPRESSION: 1. Permanent pacemaker. 2. Hypertensive heart disease. 3. Hypomagnesemia, corrected. 4. History of deep venous thrombosis, now back on anticoagulation. 5. Hiatal hernia. 6. Colon polyps. 7. Hemorrhoids. 8. Episodic gastrointestinal bleeding due to above. 9. Left below-knee amputation. 10. Peripheral artery disease. 11. Renal transplant. 12. Chronic kidney disease. 13. Insulin-requiring diabetes mellitus. PLAN: 1. Monitor electrolytes and magnesium periodically and replace accordingly. 2. Continue anticoagulation and observe for recurring gastrointestinal bleeding. 3. Maintain current cardiovascular regimen without change. 4. No additional cardiovascular workup at this time. 5. Outpatient pacemaker interrogation planned every 6 months. Matthew Tinajero M.D. DR: LALY JOB#: [id number] CC:
--- NOTE | 2018-05-18 12:35 | Discharge Summary ---
Discharge Summary Discharge Summary _ DATE OF ADMISSION: 05/10/2018 DATE OF DISCHARGE: 05/17/2018. Patient left AGAINST MEDICAL ADVICE REASON FOR ADMISSION: 78 years old female with past medical history significant for peripheral vascular disease, status post right below-knee amputation, hypertension, history of DVT on anticoagulation, transplanted kidney, permanent pacemaker , diabetes melitus, presented after rectal bleeding for last 4 days. Patient reported increased abdominal discomfort. Patient had been off anticoagulation for 2 days. Vital signs revealed no fever , blood pressure 154/80. Upon evaluation no leukocytosis, hemoglobin 12.6 hematocrit 39.2 ; electrolytes and renal parameters stable. Urinalysis with evidence of pyuria and bacteria. Patient admitted with diagnoses of abdominal pain, GI bleeding, UTI. CONSULTANTS: facility administrator GI specialist Dr. Hall industrial engineering analyst Dr. Cochran psychiatrist [facility] COURSE: Patient admitted. Renal , cardiology and GI consults were requested. Antiplatelet and anticoagulation therapy was on hold. Hemoglobin and hematocrit was closely monitored. Outpatient cardiac regimen was continued. Patient subsequently undergone upper endoscopy and colonoscopy. The findings revealed 3 cm incidental hiatal hernia. No upper gastrointestinal lesions to explain anemia noted. Diminutive colon polyp, status post removal. Biopsy of colon revealed tubular adenoma. No lesions noted during colonoscopy to explain anemia. Hemorrhoids. GI recommended to resume anticoagulation. Patient started on diet as tolerated, and able to tolerate it. Hemoglobin and hematocrit remained stable. Prior to signing AMA hemoglobin 10.6 hematocrit 32.3. No further episodes of rectal bleeding. Anticoagulation with Xarelto resumed. 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 Blood pressure was managed with calcium channel rosina ,beta rosina and hydralazine and remained stable. No additional cardiovascular workup at this time. Outpatient pacemaker interrogation planned every 6 months. GI prophylaxis provided. Urine culture grew Escherichia coli ESBL. Patient was on antibiotic based on sensitivity. Medication for transplanted kidney resumed, including Imuran and cyclosporine. Pain management addressed, and pain was controlled. Renal parameters and electrolytes were closely monitored. Electrolytes corrected as needed. Nephrotoxins were avoided. Serologist closely followed. Patient initially had episode of diarrhea. Stool for Clostridium difficile was negative on two separate occasions. Symptomatic treatment provided with Lomotil and Imodium as needed. Diarrhea resolved. Nutritional recommendation implemented in plan of care Nutritional assessment revealed that patient had high nutrition risk. Nutritional recommendation implemented in plan of care Psychiatrist seen and evaluated patient, and diagnosed patient with major depressive disorder and anxiety disorder. Reality orientation and supportive therapy provided. Blood sugar was closely monitored and remained stable. Discharge planning was in progress. Patient declined to wait for doctor order for discharge. The risks and consequences of signing AGAINST MEDICAL ADVICE were discussed with patient in detail. Patient verbalized understanding, nevertheless signed AMA form and left with her son . FINAL DIAGNOSES: GI bleeding status post EGD and colonoscopy diminutive colon polyp , s/p removal hemorrhoids hiatal hernia peripheral vascular disease right BKA transplanted kidney UTI with Escherichia coli ESBL severe protein calorie malnutrition permanent pacemaker hypertensive heart disease history of DVT mild anemia hypomagnesemia major depressive disorder anxiety disorder phantom limb pain I have been assigned to dictate discharge summary for this account. I was not involved in the patient's management. Amy Morataya NP May 18, 2018 12:35
--- NOTE | 2018-05-20 09:01 | Progress Note ---
DATE: 05/14/2018 CARDIOLOGY PROGRESS NOTE SUBJECTIVE: The patient's anticoagulation was resumed yesterday following panendoscopy that revealed only hiatal hernia and hemorrhoids that were not bleeding. The patient's diarrhea is decreasing. OBJECTIVE: VITAL SIGNS: Blood pressure 131/69, pulse 83, respiratory rate 16, and afebrile. GENERAL: Pacemaker pocket site clean and dry. LUNGS: Clear. CARDIAC: Regular rhythm and rate. Normal S1 and S2 with a fourth heart sound. ABDOMEN: Soft. Transplant site noted. No guarding or rebound. EXTREMITIES: No edema. Left BKA stump clean and dry. IMPRESSION: 1. Gastrointestinal bleeding, resolved. 2. History of deep vein thrombosis, on anticoagulation, chronically ____. 3. Anemia. Following gastrointestinal bleed. Monitor serially and continue vitamin supplements. 4. Permanent pacemaker with stable function. 5. Renal transplant. 6. Chronic kidney disease. 7. Hypertensive heart disease. PLAN: 1. Cautious use of anticoagulation. 2. Maintain current cardiovascular regimen. 3. Monitor for worsening diarrhea. 4. Follow up laboratory studies. 5. Discharge planning. Matthew Tinajero M.D. DR: KAM JOB#: [id number] CC:
== END 2018-05-17 19:00 | disposition left against medical advice (07) | DRG 377 ==
LOC: EMR 15:00 → 2E 15:05 → EDBEDREQ 15:30 → 4E 05-14 17:47
PROC: 0DJ08ZZ Inspection of Upper Intestinal Tract, Via Natural or Artificial Opening Endoscopic (ICD-10-PCS; principal; 2018-05-13 09:45)
PROC: 0DBE8ZZ Excision of Large Intestine, Via Natural or Artificial Opening Endoscopic (ICD-10-PCS; principal; 2018-05-13 09:45)
DX: K92.2 Gastrointestinal hemorrhage, unspecified (principal); G93.40 Encephalopathy, unspecified; E43 Unspecified severe protein-calorie malnutrition; I50.32 Chronic diastolic (congestive) heart failure; Z94.0 Kidney transplant status; N39.0 Urinary tract infection, site not specified; I82.409 Acute embolism and thrombosis of unspecified deep veins of unspecified lower extremity; I11.0 Hypertensive heart disease with heart failure; Z89.511 Acquired absence of right leg below knee; I73.9 Peripheral vascular disease, unspecified; Z95.0 Presence of cardiac pacemaker; K63.5 Polyp of colon; K64.9 Unspecified hemorrhoids; K44.9 Diaphragmatic hernia without obstruction or gangrene; B96.89 Other specified bacterial agents as the cause of diseases classified elsewhere; Z16.12 Extended spectrum beta lactamase (ESBL) resistance; D64.9 Anemia, unspecified; Z86.718 Personal history of other venous thrombosis and embolism; E83.42 Hypomagnesemia; F41.9 Anxiety disorder, unspecified; G54.6 Phantom limb syndrome with pain; E11.9 Type 2 diabetes mellitus without complications; Z79.4 Long term (current) use of insulin; J44.9 Chronic obstructive pulmonary disease, unspecified; G62.9 Polyneuropathy, unspecified; R32 Unspecified urinary incontinence; F32.9 Major depressive disorder, single episode, unspecified; R19.7 Diarrhea, unspecified; E11.22 Type 2 diabetes mellitus with diabetic chronic kidney disease; Z79.01 Long term (current) use of anticoagulants
CPT/HCPCS: 36415; 80048; 80053; 81003; 82248; 83690; 83735; 83880; 85007; 85025; 85610; 85730; 86850; 86900; 86901; 87081; 87086; 87181; 87324; 93005; 94003; 94150; 99285; J2250

== ENCOUNTER 2018-11-03 17:31 | Inpatient (IN) | payer MEDICARE ==
[~2018-11-03] VITALS: Ht 167.6 cm; Wt 63.5 kg
[~2018-11-03 17:31] MED LIST changes: +MORPHINE 22 MG/1 ML IV; +UNOBMED
[2018-11-03] MEDS ORDERED: UNOBMED (17:32)
[2018-11-03] MEDS ORDERED: Pantoprazole Inj IV ONE (17:45)
--- NOTE | 2018-11-03 17:49 | Emergency Room Report ---
History of Present Illness General Chief Complaint: Diarrhea Source: Patient Present Illness HPI Patient is a 78-year-old female who presented after increased abdominal pain and diarrhea. Patient reports of increased abdominal discomfort. She reports of increased dark stools. She reports having prior history of renal transplant. She says she has been having worsening pain and also reports having some difficulty with her toe amputation site. She reports having some pain. She had reportedly been on anticoagulation Allergies: Coded Allergies: No Known Allergies (Verified , 05/29/09) Patient History Past Medical History: see triage record Reviewed Nursing Documentation: PMH: Agreed; PSxH: Agreed Nursing Documentation-PMH Past Medical History: No History, Except For Hx Cardiac Problems: Yes Hx Hypertension: Yes Hx Pacemaker: Yes Hx Asthma: Yes Hx Diabetes: Yes - Type 2 DM Hx Cancer: No Hx Gastrointestinal Problems: No Hx Dialysis: No Hx Neurological Problems: Yes - right BKA Hx Cerebrovascular Accident: Yes Hx Seizures: Yes - LAST EPISODE 2011 Hx Memory Loss: Yes Hx Dizziness: Yes Review of Systems All Other Systems: negative except mentioned in HPI Physical Exam Vital Signs Date Time Temp Pulse Resp B/P (MAP) Pulse Ox O2 Delivery O2 Flow Rate FiO2 11/03/18 17:27 97.7 77 17 138/93 100 Room Air Sp02 EP Interpretation: reviewed, normal General Appearance: normal inspection, alert, GCS 15, Chronically Ill Head: atraumatic ENT: normal ENT inspection, hearing grossly normal, normal voice Neck: normal inspection, full range of motion, supple, no bony tend Respiratory: normal inspection, lungs clear, normal breath sounds, no respiratory distress, no retraction, no wheezing Cardiovascular #1: regular rate, rhythm, no edema Gastrointestinal: normal inspection, normal bowel sounds, soft, no guarding, no hernia, tenderness - right lower abdomen Genitourinary: no CVA tenderness Musculoskeletal: back normal, decreased range of motion, other - amputed left great toe amputation, right bka Neurologic: normal inspection, alert, oriented x3, responsive, 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 Differential diagnoses included ischemic bowel, appendicitis, perforated viscus, abdominal aortic aneurysm, inferior myocardial infarction, viral gastroenteritis. Because of complexity of patient' s case laboratory testing and imaging studies were ordered.Patient's laboratory testing was notable for some evidence of anemia. Per history patient has some evidence of GI bleeding and has had a pretty complicated medical history.Patient reportedly been having increased dark stool. Patient's stump from her prior left great toe amputation appeared to be somewhat discolored. Right BKA stump appeared to be intact.Patient was given IV Rocephin.Dr. Matthew Tinajero was contacted for Dr. John Red for inpatient management. Labs Test 11/03/18 18:05 11/03/18 18:20 White Blood Count 6.6 K/UL (4.8-10.8) Red Blood Count 3.57 M/UL (4.20-5.40) Hemoglobin 11.7 G/DL (12.0-16.0) Hematocrit 36.4 % (37.0-47.0) Mean Corpuscular Volume 102 FL (80-99) Mean Corpuscular Hemoglobin 32.7 PG (27.0-31.0) Mean Corpuscular Hemoglobin Concent 32.0 G/DL (32.0-36.0) Red Cell Distribution Width 13.6 % (11.6-14.8) Platelet Count 177 K/UL (150-450) Mean Platelet Volume 8.3 FL (6.5-10.1) Neutrophils (%) (Auto) 58.4 % (45.0-75.0) Lymphocytes (%) (Auto) 35.3 % (20.0-45.0) Monocytes (%) (Auto) 4.4 % (1.0-10.0) Eosinophils (%) (Auto) 0.4 % (0.0-3.0) Basophils (%) (Auto) 1.5 % (0.0-2.0) EKG Diagnostic Results Rate: normal Rhythm: other - paced rhythm ST Segments: no acute changes Last Vital Signs Date Time Temp Pulse Resp B/P (MAP) Pulse Ox O2 Delivery O2 Flow Rate FiO2 11/03/18 17:27 97.7 77 17 138/93 100 Room Air Status: unchanged Disposition: ADMITTED INPATIENT Condition: Stable Joseph Mckeon MD Nov 03, 2018 17:49
[2018-11-03 18:11] VITALS: BP 150/85
[2018-11-03 18:34] LABS: BASOPHILS % (AUTO) 1.5 % (0.0-2.0); EOSINOPHILS % (AUTO) 0.4 % (0.0-3.0); HEMATOCRIT 36.4 % (37.0-47.0); HEMOGLOBIN 11.7 G/DL (12.0-16.0); LYMPHOCYTES % (AUTO) 35.3 % (20.0-45.0); MEAN CORPUSCULAR VOLUME 102 FL (80-99); MONOCYTES % (AUTO) 4.4 % (1.0-10.0); NEUTROPHILS % (AUTO) 58.4 % (45.0-75.0); PLATELET COUNT 177 K/UL (150-450); RED BLOOD COUNT 3.57 M/UL (4.20-5.40); RED CELL DISTRIBUTION WIDTH 13.6 % (11.6-14.8); WHITE BLOOD COUNT 6.6 K/UL (4.8-10.8)
[2018-11-03 18:41] LABS: APPEARANCE,URINE SLIGHTLY CLOUDY; BILIRUBIN, URINE NEGATIVE (NEGATIVE); COLOR,URINE PALE YELLOW; GLUCOSE, URINE (UA) NEGATIVE (NEGATIVE); KETONES,URINE NEGATIVE (NEGATIVE); LEUKOCYTE ESTERASE ,URINE 3+ (NEGATIVE); NITRITE,URINE NEGATIVE (NEGATIVE); PH,URINE 7 (4.5-8.0); PROTEIN,URINE 2+ (NEGATIVE); UROBILINOGEN,URINE NORMAL MG/DL (0.0-1.0)
[2018-11-03 18:47] LABS: ANION GAP 10 mmol/L (5-15); BLOOD UREA NITROGEN 7 mg/dL (7-18); CALCIUM 9.1 MG/DL (8.5-10.1); CARBON DIOXIDE 27 MMOL/L (21-32); CHLORIDE 106 MMOL/L (98-107); CREATININE 0.8 MG/DL (0.55-1.30); POTASSIUM 3.5 MMOL/L (3.5-5.1); SODIUM 143 MMOL/L (136-145)
[2018-11-03 18:51] LABS: ALANINE AMINOTRANSFERASE 10 U/L (12-78); ALBUMIN 3.4 G/DL (3.4-5.0); ALBUMIN/GLOBULIN RATIO 0.7 (1.0-2.7); ALKALINE PHOSPHATASE 98 U/L (46-116); ASPARTATE AMINO TRANSFERASE 21 U/L (15-37); BILIRUBIN,TOTAL 0.7 MG/DL (0.2-1.0)
[2018-11-03] MEDS ORDERED: cefTRIAXone 1 GM in NS 55 ML IVPB ONE (19:15)
[2018-11-03] MEDS ORDERED: MIRTAZAPINE15 M3 ORAL (19:38)
[2018-11-03] MEDS ORDERED: FUROSEMIDE20 M1 ORAL (19:38)
[2018-11-03] MEDS ORDERED: CARVEDILOL3.125 MG ORAL (19:40)
[2018-11-03] MEDS ORDERED: NORCO 10-325 T1 EACH ORAL (19:40)
[2018-11-03 20:00] VITALS: BP 160/79
[2018-11-03] MEDS ORDERED: Vancomycin 1gm/D5W 275ml IVPB SCH ×2 (22:00)
[2018-11-03] MEDS: HydrALAZINE 25mg tab ORAL SCH (22:29)
[2018-11-03] MEDS: D5 1/2NS 1,000 ML IV SCH (22:34)
[2018-11-04] VITALS: BP 147/81
[2018-11-04 04:00] VITALS: BP 126/64
--- NOTE | 2018-11-04 04:15 | Consultation ---
DATE OF CONSULTATION: 11/03/2018 CARDIOLOGY CONSULTATION CONSULTING PHYSICIAN: Matthew Tinajero M.D. REQUESTING PHYSICIAN: John Red M.D. REASON FOR CONSULTATION: GI bleeding in the setting of coagulopathy, permanent pacemaker, and ____ state. HISTORY OF PRESENT ILLNESS: This is an 78-year-old female with a complicated medical history. She presented to the hospital with increasing abdominal pain, diarrhea, and dark stools. She has been on anticoagulation due to recurring DVT. She recently had a toe amputation as well and has a prior BKA on the left. She also has a pacemaker with history of cardiac arrhythmias. The patient has not had any chest pain or shortness of breath. She has had diarrhea and dysuria. PAST MEDICAL HISTORY: 1. Peripheral artery disease. 2. Type 2 diabetes mellitus. 3. Cerebrovascular disease with history of CVA. 4. Right BKA. 5. Left first toe amputation. 6. Hypertension. 7. Permanent pacemaker. 8. Chronic obstructive pulmonary disease. 9. Renal transplant. 10. History of hydronephrosis. ALLERGIES: None. FAMILY HISTORY: Noncontributory. SOCIAL HISTORY: Positive for smoking. No alcohol or substance abuse. MEDICATIONS: Reviewed and reconciled. REVIEW OF SYSTEMS: Her most recent echocardiogram revealed normal ejection fraction with concentric hypertrophy and a diastolic relaxation abnormality. The permanent pacemaker was interrogated within the last six months and functioning appropriately. There is no history of flow-limiting coronary artery disease. She is a renal transplant patient. She has recurring urinary tract infections. She has had revascularization of her lower extremities and amputations due to gangrene. There is no history of thyroid disorder. She has been on anti-lipid drugs in the past. PHYSICAL EXAMINATION: VITAL SIGNS: Blood pressure 138/93, pulse 77, respiratory rate 17, and afebrile. HEENT: Arcus senilis. Dry mucous membranes. NECK: Supple. LUNGS: Clear. No chest wall tenderness. BREASTS: No breast masses. CARDIAC: Regular rhythm and rate. Normal S1 and S2 with a fourth heart sound. Pacemaker pocket site clean and dry. ABDOMEN: Soft and nontender. Transplanted kidney site is palpable on the right. EXTREMITIES: Right BKA and left first toe site with some skin breakdown. LABORATORY DATA: White count 6.6 and hemoglobin 11.7. INR 1, sodium 143, potassium 3.5, bicarbonate 27, BUN 7, creatinine 0.8, troponin 0.021, and albumin 3.4. Urinalysis with 20 to 30 white cells, many bacteria. IMPRESSION: 1. Possible gastrointestinal bleeding. 2. Urinary tract infection. 3. Kidney transplant. 4. Coagulopathy due to rivaroxaban. 5. History of recurring DVT. 6. Possible stump infection at the left first toe. 7. Peripheral artery disease. 8. Type 2 diabetes mellitus. 9. Permanent pacemaker. 10. Hypertensive cardiomyopathy. 11. Chronic diastolic congestive heart failure. PLAN: 1. Hydration. 2. Antimicrobials. 3. Cautious use of antihypertensive. 4. Hold parameters in place. 5. Serial hemoglobin. 6. Hold anticoagulation until GI workup is complete. 7. Consider MRI of amputated toe site. 8. ____ pacemaker interrogation if not recently done. 9. Further recommendations to follow. Matthew Tinajero M.D. DR: KAM JOB#: [id number] CC:
[2018-11-04] MEDS: HydrALAZINE 25mg tab ORAL SCH ×3 (05:59→20:57)
[2018-11-04 07:01] LABS: BASOPHILS % (AUTO) 0.8 % (0.0-2.0); EOSINOPHILS % (AUTO) 0.4 % (0.0-3.0); HEMATOCRIT 31.5 % (37.0-47.0); HEMOGLOBIN 10.2 G/DL (12.0-16.0); LYMPHOCYTES % (AUTO) 13.2 % (20.0-45.0); MEAN CORPUSCULAR VOLUME 101 FL (80-99); MONOCYTES % (AUTO) 5.5 % (1.0-10.0); NEUTROPHILS % (AUTO) 80.1 % (45.0-75.0); PLATELET COUNT 147 K/UL (150-450); RED BLOOD COUNT 3.11 M/UL (4.20-5.40); RED CELL DISTRIBUTION WIDTH 13.4 % (11.6-14.8); WHITE BLOOD COUNT 6.3 K/UL (4.8-10.8)
[2018-11-04 08:00] VITALS: BP 106/57
[2018-11-04] MEDS: cycloSPORINE 100mg cap ORAL SCH ×2 (09:14→18:02)
[2018-11-04] MEDS: HYDROcodone/Acetamin 10/325 tab ORAL SCH (09:14)
[2018-11-04] MEDS: azaTHIOprine 50 MG TAB ORAL SCH (09:15)
--- NOTE | 2018-11-04 09:45 | General Progress Note ---
Assessment/Plan Assessment/Plan GI CONSULT Full note to follow Assessment -? rectal bleeding (no blood or melena on rectal exam) - patient declines to take GI preparation for colonoscopy - Anemia, ? hematologic basis (macrocytic) - s/p renal transplant, now with blood clots in urine - PVD, s/p amputations Recommendations - continue clears - periodic laxatives - monitor for further rectal bleeding - Agree with holding Xarelto - will re-discuss daily re GI w/u Thank you Kalin Hall MD Subjective Allergies: Coded Allergies: No Known Allergies (Verified , 05/29/09) Objective Last 24 Hour Vital Signs Date Time Temp Pulse Resp B/P (MAP) Pulse Ox O2 Delivery O2 Flow Rate FiO2 11/04/18 09:12 81 106/57 11/04/18 09:12 81 106/57 11/04/18 08:00 98.2 81 18 106/57 (73) 98 11/04/18 05:59 126/64 11/04/18 04:00 98.3 77 17 126/64 (84) 98 11/04/18 04:00 81 11/04/18 01:44 Room Air 11/04/18 00:00 77 11/04/18 00:00 97.7 85 18 147/81 (103) 97 11/03/18 22:29 160/79 11/03/18 22:27 81 160/79 11/03/18 20:00 97.4 81 17 160/79 (106) 98 11/03/18 19:55 74 21 137/61 100 Room Air 11/03/18 18:11 97.7 82 25 150/85 99 Room Air 11/03/18 17:27 97.7 77 17 138/93 100 Room Air Intake and Output 11/03/18 11/04/18 19:00 07:00 Output Total 0 ml Balance 0 ml Output Urine Total 0 ml Laboratory Tests 11/03/18 18:05: White Blood Count 6.6, Red Blood Count 3.57L, Hemoglobin 11.7L, Hematocrit 36.4L , Mean Corpuscular Volume 102H, Mean Corpuscular Hemoglobin 32.7H, Mean Corpuscular Hemoglobin Concent 32.0, Red Cell Distribution Width 13.6, Platelet Count 177, Mean Platelet Volume 8.3, Neutrophils (%) (Auto) 58.4, Lymphocytes (% ) (Auto) 35.3, Monocytes (%) (Auto) 4.4, Eosinophils (%) (Auto) 0.4, Basophils ( %) (Auto) 1.5, Prothrombin Time 10.9, Prothromb Time International Ratio 1.0, Activated Partial Thromboplast Time 28, Sodium Level 143, Potassium Level 3.5, Chloride Level 106, Carbon Dioxide Level 27, Anion Gap 10, Blood Urea Nitrogen 7 , Creatinine 0.8, Estimat Glomerular Filtration Rate , Glucose Level 110H, Calcium Level 9.1, Total Bilirubin 0.7, Aspartate Amino Transf (AST/SGOT) 21, Alanine Aminotransferase (ALT/SGPT) 10L, Alkaline Phosphatase 98, Troponin I 0.021, Total Protein 8.4H, Albumin 3.4, Globulin 5.0, Albumin/Globulin Ratio 0.7L, Lipase 137 11/03/18 18:20: Urine Color Pale yellow, Urine Appearance Slightly cloudy, Urine pH 7, Urine Specific [place] 1.005, Urine Protein 2+H, Urine Glucose (UA) Negative, Urine Ketones Negative, Urine Blood Negative, Urine Nitrite Negative, Urine Bilirubin Negative, Urine Urobilinogen Normal, Urine Leukocyte Esterase 3+H, Urine RBC 0, Urine WBC 20-30H, Urine Squamous Epithelial Cells Occasional, Urine Bacteria ManyH 11/04/18 05:40: White Blood Count 6.3, Red Blood Count 3.11L, Hemoglobin 10.2L, Hematocrit 31.5L , Mean Corpuscular Volume 101H, Mean Corpuscular Hemoglobin 32.7H, Mean Corpuscular Hemoglobin Concent 32.3, Red Cell Distribution Width 13.4, Platelet Count 147L, Mean Platelet Volume 9.2, Neutrophils (%) (Auto) 80.1H, Lymphocytes (%) (Auto) 13.2L, Monocytes (%) (Auto) 5.5, Eosinophils (%) (Auto) 0.4, Basophils (%) (Auto) 0.8, Cyclosporine (by HPLC) [Pending] Height (Feet): 5 Height (Inches): 6.00 Weight (Pounds): 140 Kalin Hall MD Nov 04, 2018 09:45
[2018-11-04] MEDS: Piperacillin/Tazobactam 3.375 GM in NS 110 ML IVPB SCH ×5 (09:47→23:40)
[2018-11-04] MEDS: D5 1/2NS 1,000 ML IV SCH ×2 (10:20→23:40)
[2018-11-04] MEDS ORDERED: Nulytely 4L ORAL SCH (11:00)
[2018-11-04] MEDS: Vancomycin 750mg/NS 250ml IVPB SCH ×2 (11:59→21:00)
[2018-11-04 12:00] VITALS: BP 108/58
--- NOTE | 2018-11-04 15:00 | History and Physical Report ---
DATE OF ADMISSION: 11/03/2018 CHIEF COMPLAINT: GI bleed, possible cellulitis of the right foot. HISTORY OF PRESENT ILLNESS: The patient is a pleasant 78-year-old female. She has a history of left [id number] amputation, peripheral artery disease. She has a history of neuropathy, kidney transplant, DVT, hypertension. She presented from home with complaints of right foot pain and rectal bleeding. According to the patient, over the last two weeks she had intermittent episodes of bright red blood while going to the bathroom times up to 2 to 3 episodes a day. She notes that the stool appears to be mostly blood although times where it is brown and covered. On evaluation the emergency room, the patient's hemoglobin was 12, platelets were normal. She also complains of right foot pain. She had UA that showed 20 to 30 wbc's. The patient has been cultured. Antibiotics have been started. She has been started on a PPI. Xarelto was discontinued. The patient is now admitted for further evaluation and care. PAST MEDICAL HISTORY: As above. PAST SURGICAL HISTORY: Includes left [id number] amputation. CURRENT MEDICATIONS: Reconciled and reviewed. ALLERGIES: None. FAMILY HISTORY: None. SOCIAL HISTORY: Negative for tobacco, ethanol, or drugs. The patient currently lives with her son. REVIEW OF SYSTEMS: GENERAL: No fever or chills. HEENT: No headaches or visual changes. CARDIOPULMONARY: No chest pain or shortness of breath. No cough. GASTROINTESTINAL: Positive for rectal bleeding. No melena. No hematemesis. GENITOURINARY: No urgency or frequency. MUSCULOSKELETAL: Positive right foot pain. NEUROLOGIC: No history of seizures. PHYSICAL EXAMINATION: VITAL SIGNS: Temperature 98.3, pulse 77, respirations 17, blood pressure 126/64. GENERAL: The patient is well developed, no apparent distress. HEART: Regular rate and rhythm. LUNGS: Clear. ABDOMEN: Soft, nontender, nondistended. EXTREMITIES: No clubbing or cyanosis. There is a well-healed left BKA. The right foot has some callus formation and scabbing on the outside of the foot. There is no erythema or pus noted. The foot is warm. LABORATORY AND DIAGNOSTIC DATA: Pertinent data, white count 6, hemoglobin 12, hematocrit 36, platelets of 177. Coagulations are normal. Sodium 143, potassium 3.5. Troponin 0.021. Lipase is normal. UA showed 20 to 30 wbc's. ASSESSMENT: This is a pleasant female with a history of left BKA, peripheral artery disease, kidney transplant, hypertension, prior history of DVT admitted with complaints of GI bleed. 1. GI bleed possibly secondary to hemorrhoids, diverticulosis. Her hemoglobin is relatively stable despite having reported bleeding for the last 2 weeks. 2. Possible right foot cellulitis. 3. PAD. 4. History of DVT. 5. Hypertension. 6. History of neuropathy and phantom limb pain. PLAN: We will discontinue Xarelto. IV proton pump inhibitor. IV antibiotics for possible cellulitis and for UTI. We will follow up pending cultures. Podiatry, Cardiology, Renal, GI, and Infectious Diseases consultations have been obtained. Plan of care was discussed with the patient at the bedside. John Red M.D. DR: Jose JOB#: [id number] CC:
--- NOTE | 2018-11-04 15:09 | Cardiology Report ---
APPROVED REPORT EKG Measurement Heart [id number] Atrial pacing with frequent premature ventricular complexes Abnormal ECG
[2018-11-04 16:00] VITALS: BP 116/62
--- NOTE | 2018-11-04 16:15 | Consultation ---
DATE OF CONSULTATION: 11/04/2018 NEPHROLOGY CONSULTATION CONSULTING PHYSICIAN: Kade Cochran M.D. REFERRING PHYSICIAN: John Red M.D. REASON FOR CONSULTATION: Kidney transplant status and UTI. HISTORY OF PRESENT ILLNESS: The patient is well known to me. She has a kidney transplant, I believe in 1996 and has had generally stable function and has had recurrent UTIs. She has severe peripheral vascular disease, multiple procedures, ischemia of the toes. She is complaining of dysuria, lower abdominal pain, rectal pain, pain in the left foot on this admission and there is a history of a chronic pain syndrome. HOME MEDICATIONS: Listed as amlodipine 5 mg daily, azathioprine 75 mg daily, carvedilol 3.125 mg every 12 hours, cyclosporine 100 mg b.i.d. and I believe in the past she took 125 mg b.i.d., fludrocortisone 0.1 mg daily, furosemide 20 mg daily, hydralazine 25 mg every 8 hours, [place]urepas p.r.n., mirtazapine 15 mg at bedtime, and Protonix 40 mg daily, HABITS: She is a nondrinker and nonsmoker. SURGERIES: Include kidney transplant and multiple dialysis vascular access procedures, permanent pacemaker, amputation of the right leg below the knee, toe amputation on the left, and multiple vascular procedures for ulcers in the lower extremities, debridements, and wound care. SYSTEM REVIEW: HEAD, EYES, EARS, NOSE, AND THROAT: She has some decreased vision acuity. Hearing is good. ENDOCRINE: Glucose intolerance in the past, worse when on steroids, not requiring any treatment currently. No thyroid disease. PULMONARY: No asthma, TB, or chronic cough. CARDIAC: History of permanent pacemaker and hypertensive heart disease. No definite WI. GASTROINTESTINAL: History of intermittent diarrhea, nausea, vomiting, abdominal pain, and hematochezia. She has had GI workups in the past. GENITOURINARY: History of recurring UTIs. No kidney stones. NEUROLOGIC: No CVA or seizures. MUSCULOSKELETAL: Chronic pain syndrome. PHYSICAL EXAMINATION: GENERAL: The patient is alert lady, lying in bed, chronically ill, but in no acute distress. VITAL SIGNS: Temperature 98.3, pulse 77, respirations 17, and blood pressure 126/64. HEAD, EYES, EARS, NOSE, AND THROAT: Sclerae are nonicteric. Ocular motions intact in all directions. Oral mucosa is moist. NECK: No adenopathy or thyroid enlargement. LUNGS: Clear. HEART: Rhythm is regular. I hear no murmur. ABDOMEN: Soft. No organomegaly or masses. The renal transplants in the right lower quadrant is mildly tender. No rebound. EXTREMITIES: Right below-knee amputation. She has amputation of toe on the left foot. There is some hyperpigmentation of the bunion area and first toe area in the left foot with some chronic dermatitis. NEUROLOGIC: She is alert and oriented. Cranial nerves are intact. PERTINENT LABORATORY DATA: Show UA with 2+ protein, 3+ leukocyte esterase, and 20 to 30 white cells per high-power field. White count 6.3 and hemoglobin is 10.2. BUN 7, creatinine 0.8, and electrolytes normal. Albumin is low at 3.4. IMPRESSION: 1. Kidney transplant status. 2. Recurrent UTI and possible pyelonephritis in the transplanted kidney. 3. Acute on chronic pain. 4. Peripheral vascular disease, ischemia of the foot. 5. History of hyperkalemia with fludrocortisone and Lasix. 6. Hypertensive heart disease. 7. History of permanent pacemaker. PLAN: The patient was started on empiric antibiotics for UTI. We will watch her closely in view of her comorbidities and immunosuppressive status. I would continue her current dose of immunosuppression. We will try to get cyclosporine levels and follow with you. Kade Cochran M.D. DR: ABELINO JOB#: [id number] CC:
--- NOTE | 2018-11-04 18:03 | Consultation ---
Consult Note Assessment/Plan A/ 1) Pain left foot 2) h/o PAD s/p BKA RLE P/ 1) Will order arterial duplex LLE 2) X-rays left foot 3) No open wounds, no surgical intervention indicated at this time. 4) Will follow Thank you Hardy Arguello DPM Nov 04, 2018 18:03
[2018-11-04 20:00] VITALS: BP 125/62
--- NOTE | 2018-11-04 20:15 | Consultation ---
DATE OF CONSULTATION: 11/04/2018 CONSULTING PHYSICIAN: Hardy Sumner D.P.M. REQUESTING PHYSICIAN: John Red M.D. REASON FOR CONSULTATION: Pain in the left foot. HISTORY OF PRESENT ILLNESS: The patient is an 78-year-old female who was admitted to [facility] on November 03, for possible gastrointestinal bleed. The patient states that she has had pain in her left foot for an extended period of time. When she sits, the left foot swells. It is discolored and is requesting an amputation of her left great toe. She says that there are times the skin opens and bleeds and is concerned about her pain. PAST MEDICAL HISTORY: Significant for peripheral vascular disease, kidney failure. PAST SURGICAL HISTORY: Significant for kidney transplant, dialysis access, permanent pacemaker placement, amputation of the right leg below the knee, and multiple vascular procedures. ALLERGIES: She has no known drug allergies. MEDICATIONS: Per MAR include vancomycin and Zosyn. FAMILY HISTORY: Noncontributory. SOCIAL HISTORY: Noncontributory. REVIEW OF SYSTEMS: HEENT: The patient denies any headaches, blurred vision, or ringing in the ears. CARDIOVASCULAR: The patient denies any chest pain or shortness of breath. GENITOURINARY: The patient denies any urgency, frequency, burning upon urination, or hematuria. GASTROINTESTINAL: The patient denies any constipation, diarrhea, or blood in the stool. PHYSICAL EXAMINATION: VITAL SIGNS: Temperature is 98.1, pulse is 82, respiration rate is 17, blood pressure is 116/62, and saturating 100% on room air. EXTREMITIES: Lower extremity physical exam limited to the left foot. Nonpalpable pedal pulses noted bilaterally. Foot is warm. No edema noted. There is no cyanosis noted. DERMATOLOGICAL: There is some hyperpigmentation to the left hallux. There are dry scabs noted on the distal aspect of the left hallux, the left second toe, as well as at the metatarsophalangeal joint area. No signs of active infection noted. No active signs of bleeding. No signs of acute infection again. MUSCULOSKELETAL: Right below-knee amputation is noted. No other gross deformities noted. NEUROLOGICAL: Protective threshold is intact. LABORATORY AND DIAGNOSTIC DATA: White blood cell count 6.3, hemoglobin and hematocrit is 10.3 and 31.5, and platelet count is 147,000. Creatinine is 0.8, BUN is 7, potassium is 3.5, and glucose is 110. Albumin is 3.4. INR is 1.0. Lower extremity imaging, venous ultrasound performed on this admission, right leg reveals a recanalized chronic thrombus in the common femoral and popliteal veins. Left leg shows acute thrombus in the proximal superficial femoral vein. Imaging also notes chronic thrombus in the common femoral vein and popliteal calf veins. No other lower extremity imaging is noted. ASSESSMENT: 1. Pain in the left foot. 2. History of peripheral arterial disease, status post below knee amputation, right lower extremity. 3. Deep venous thrombosis. PLAN: 1. We will order arterial duplex of the left lower extremity. 2. X-rays of the left foot ordered. 3. No open wounds noted. No surgical intervention indicated at this time. 4. DVT per PCP management. 5. We will follow. Thank you for the courtesy of this consultation. Hardy Sumner D.P.M. DR: WENDY JOB#: [id number] CC:
[2018-11-04] MEDS ORDERED: Sorbitol Solution UD 30ml ORAL SCH (21:30)
--- NOTE | 2018-11-04 23:15 | Consultation ---
DATE OF CONSULTATION: 11/04/2018 GASTROENTEROLOGY CONSULTATION CONSULTING PHYSICIAN: Kalin Hall M.D. REFERRING PHYSICIANS: 1. Matthew Tinajero M.D. 2. John Red M.D. CHIEF COMPLAINT: I was asked to see this patient by Dr. Matthew Tinajero and Dr. John Red for evaluation of possible gastrointestinal bleeding. 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 The patient has been on Xarelto reportedly for recurrent deep vein thrombosis. She has extensive peripheral vascular disease and had undergone toe amputation as well as below-knee amputation. The patient has not had any bowel movement since she has been in the hospital and is not too interested to have a colonoscopy. Preparation for possible colonoscopy for tomorrow was written in the form of a laxative. The patient refused to take more than 2 cups of GoLYTELY and has not had any bowel movement, so therefore, the GoLYTELY has to be continued. The patient denies having had any endoscopy or colonoscopy in the past although she has had renal transplant. She complains of some pain on the transplanted kidney area. She has some mild anemia and some mild drop in hematocrit overnight, however, nurses did not report any melena or hematochezia so far. The nurses did however noticed blood clots in the urine. PAST MEDICAL HISTORY: History of peripheral vascular disease, type 2 diabetes mellitus, cerebrovascular disease with history of stroke, history of right hemiplegic, history of left first toe amputation, hypertension, status post pacemaker placement, chronic obstructive pulmonary disease, status post renal transplant, history of hydronephrosis. ALLERGIES: None. FAMILY HISTORY: Noncontributory. SOCIAL HISTORY: The patient has had smoking history, but denies alcohol use. REVIEW OF SYSTEMS: Otherwise negative. PHYSICAL EXAMINATION: GENERAL: An elderly woman, seen in her room. HEENT: Normocephalic and atraumatic. Sclerae anicteric. Oropharynx clear. NECK: Supple. CHEST: Clear to auscultation. CARDIOVASCULAR: Revealed regular rate. ABDOMEN: Soft. Good bowel sounds. There was a transplanted kidney in the right lower quadrant palpable. RECTAL: Revealed a scant amount of yellow stool. No melena or hematochezia. EXTREMITIES: Showed the right below-knee amputation and left toe amputation. NEUROLOGIC: Grossly nonfocal. LABORATORY DATA: Noted. ASSESSMENT: This patient presents with self-reported history of dark stools although she has not had any stool in this hospitalization and rectal exam does not show any bleeding. Moreover, she is not interested in colonoscopy and has declined preparation for colonoscopy. I will therefore continue observation for now and verify if the patient is actually bleeding. She had blood seen in the urine per nursing staff and therefore she may require a urology workup. In the meantime, I have advised the nurses to check this patient's stool occult blood and some more gentle laxatives to begin overnight. If she agrees to undergo colonoscopy, again this will be done off of Xarelto at some point in the next few days. RECOMMENDATIONS: Per above discussion and per orders written in the chart. Thank you for asking me to participate in care of this patient. Kalin Hall M.D. DR: Josephine JOB#: [id number] CC:
[2018-11-05] VITALS: BP 111/64
[2018-11-05] LABS: BILIRUBIN, URINE 1+ (NEGATIVE); GLUCOSE, URINE (UA) NEGATIVE (NEGATIVE); KETONES,URINE NEGATIVE (NEGATIVE); LEUKOCYTE ESTERASE ,URINE 3+ (NEGATIVE); NITRITE,URINE NEGATIVE (NEGATIVE); PH,URINE 6.5 (4.5-8.0); PROTEIN,URINE 1+ (NEGATIVE); UROBILINOGEN,URINE NORMAL MG/DL (0.0-1.0)
[2018-11-05 00:19] LABS: APPEARANCE,URINE CLOUDY; COLOR,URINE AMBER
--- NOTE | 2018-11-05 00:30 | Progress Note ---
DATE: 11/04/2018 CARDIOLOGY PROGRESS NOTE: SUBJECTIVE: No new signs of bleeding. The patient is off anticoagulation at present. There is some blood in the urine possibly. OBJECTIVE: VITAL SIGNS: Blood pressure 116/62, pulse 82, respirations 17, afebrile. LUNGS: Clear. CARDIAC: Regular. Normal S1, S2 with a fourth heart sound. ABDOMEN: Soft. EXTREMITIES: Stump has dressing intact with right BKA. Left toe amputation site is not healing. IMPRESSION: 1. Peripheral artery disease. 2. Amputation. 3. Renal transplant. 4. DVT. 5. Hypertensive cardiomyopathy. 6. Urinary tract infection. 7. Possible GI bleeding. PLAN: 1. Stay off Xarelto for now. 2. Antimicrobial skin care. 3. Stool occult blood. 4. Follow up clinical parameters and adjust therapy accordingly. 5. The patient is high risk. Matthew Tinajero M.D. DR: ANDREI JOB#: [id number] CC:
[2018-11-05 04:00] VITALS: BP 124/63
[2018-11-05] MEDS: HydrALAZINE 25mg tab ORAL SCH ×3 (06:00→22:09)
--- NOTE | 2018-11-05 07:12 | General Progress Note ---
Assessment/Plan Problem List: (1) Diarrhea ICD Codes: R19.7 - Diarrhea SNOMED: 73511421 (2) UTI (urinary tract infection) ICD Codes: N39.0 - Urinary tract infection, site not specified SNOMED: 37671236 (3) Encephalopathy acute ICD Codes: G93.40 - Encephalopathy acute SNOMED: 2070132 (4) DVT (deep venous thrombosis) ICD Codes: I82.409 - Acute embolism and thrombosis of unspecified deep veins of unspecified lower extremity SNOMED: 741317106 (5) Acute GI bleeding ICD Codes: K92.2 - Gastrointestinal hemorrhage, unspecified SNOMED: 65037520 (6) Failure to thrive in adult ICD Codes: R62.7 - Adult failure to thrive SNOMED: 690487801 Status: stable, progressing Assessment/Plan iv abx PPI rx off xarelto follow up cultures ?ivc filter- considered previously but deferred because of concern of damage( from thrombosis) to transplanted kidney Subjective ROS Limited/Unobtainable: No Constitutional: Reports: malaise, weakness HEENT: Reports: no symptoms Cardiovascular: Reports: no symptoms Respiratory: Reports: no symptoms Gastrointestinal/Abdominal: Reports: blood in stool Genitourinary: Reports: hematuria Neurologic/Psychiatric: Reports: no symptoms Endocrine: Reports: no symptoms Hematologic/Lymphatic: Reports: no symptoms Allergies: Coded Allergies: No Known Allergies (Verified , 05/29/09) All Systems: reviewed and negative except above Subjective no melena or brbpr. +hematuria. venous duplex with acute dvt and chronic. Objective Last 24 Hour Vital Signs Date Time Temp Pulse Resp B/P (MAP) Pulse Ox O2 Delivery O2 Flow Rate FiO2 11/05/18 06:00 124/63 11/05/18 04:00 81 11/05/18 04:00 96.4 77 17 124/63 (83) 99 11/05/18 00:00 96.6 85 17 111/64 (80) 99 11/05/18 00:00 80 11/04/18 21:00 Room Air 11/04/18 20:57 125/62 11/04/18 20:56 78 125/62 11/04/18 20:00 90 11/04/18 20:00 97.0 78 17 125/62 (83) 98 11/04/18 16:00 98.1 82 17 116/62 (80) 100 11/04/18 16:00 82 11/04/18 14:08 108/58 11/04/18 12:00 98.7 80 17 108/58 (75) 100 11/04/18 12:00 87 11/04/18 09:12 81 106/57 11/04/18 09:12 81 106/57 11/04/18 09:00 Room Air 11/04/18 09:00 Room Air 11/04/18 08:00 73 11/04/18 08:00 98.2 81 18 106/57 (73) 98 Intake and Output 11/04/18 2 18:59 06:59 # Bowel Movements 2 1 Laboratory Tests 11/04/18 22:13: Urine Color June, Urine Appearance Cloudy, Urine pH 6.5, Urine Specific [place] 1.005, Urine Protein 1+H, Urine Glucose (UA) Negative, Urine Ketones Negative, Urine Blood 2+H, Urine Nitrite Negative, Urine Bilirubin 1+H, Urine Ictotest Positive, Urine Urobilinogen Normal, Urine Leukocyte Esterase 3+H, Urine RBC 5-10H, Urine WBC TntcH, Urine Squamous Epithelial Cells ModerateH, Urine Bacteria ManyH, Urine Yeast ManyH Height (Feet): 5 Height (Inches): 6.00 Weight (Pounds): 140 General Appearance: WD/WN, alert Neck: supple Cardiovascular: normal rate Respiratory/Chest: chest wall non-tender, lungs clear, normal breath sounds, no respiratory distress Edema: no edema noted Arm (L), no edema noted Arm (R), no edema noted Leg (L), no edema noted Leg (R), no edema noted Pedal (L), no edema noted Pedal (R), no edema noted 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
[2018-11-05 08:00] VITALS: BP 143/98
[2018-11-05] MEDS: cycloSPORINE 100mg cap ORAL SCH ×2 (08:23→17:54)
[2018-11-05] MEDS: Piperacillin/Tazobactam 3.375 GM in NS 110 ML IVPB SCH (08:23)
[2018-11-05] MEDS: HYDROcodone/Acetamin 10/325 tab ORAL SCH (08:24)
[2018-11-05] MEDS: azaTHIOprine 50 MG TAB ORAL SCH (08:24)
[2018-11-05 09:35] LABS: HEMATOCRIT 36.8 % (37.0-47.0); HEMOGLOBIN 11.9 G/DL (12.0-16.0); MEAN CORPUSCULAR VOLUME 100 FL (80-99); PLATELET COUNT 183 K/UL (150-450); RED BLOOD COUNT 3.67 M/UL (4.20-5.40); RED CELL DISTRIBUTION WIDTH 13.2 % (11.6-14.8); WHITE BLOOD COUNT 3.2 K/UL (4.8-10.8)
[2018-11-05 09:45] LABS: ANION GAP 11 mmol/L (5-15); BLOOD UREA NITROGEN 6 mg/dL (7-18); CALCIUM 9.5 MG/DL (8.5-10.1); CARBON DIOXIDE 26 MMOL/L (21-32); CHLORIDE 107 MMOL/L (98-107); CREATININE 0.9 MG/DL (0.55-1.30); POTASSIUM 3.2 MMOL/L (3.5-5.1); SODIUM 144 MMOL/L (136-145)
[2018-11-05] MEDS: Vancomycin 750mg/NS 250ml IVPB SCH (10:00)
--- NOTE | 2018-11-05 10:40 | General Progress Note ---
Assessment/Plan Assessment/Plan Assessment -? rectal bleeding (no blood or melena on rectal exam) vs just gross hematuria - patient declines to take GI preparation for colonoscopy or laxative to obtain BM - Anemia, ? hematologic basis (macrocytic) - s/p renal transplant, now with blood clots in urine - PVD, s/p amputations Recommendations - solid po - monitor for further rectal bleeding - Agree with holding Xarelto - Urology consult - no plans for GI w/u at this time since patient refused laxatives Subjective Allergies: Coded Allergies: No Known Allergies (Verified , 05/29/09) Subjective d/w RN yellow urine with blood clots seen no BM noted patient declined laxative says now only seeing blood in urine says at home had blood in urine and stool Objective Last 24 Hour Vital Signs Date Time Temp Pulse Resp B/P (MAP) Pulse Ox O2 Delivery O2 Flow Rate FiO2 11/05/18 09:00 Room Air 11/05/18 08:24 81 124/63 11/05/18 08:23 81 124/63 11/05/18 08:00 98.0 80 22 143/98 (113) 100 11/05/18 06:00 124/63 11/05/18 04:00 81 11/05/18 04:00 96.4 77 17 124/63 (83) 99 11/05/18 00:00 96.6 85 17 111/64 (80) 99 11/05/18 00:00 80 11/04/18 21:00 Room Air 11/04/18 20:57 125/62 11/04/18 20:56 78 125/62 11/04/18 20:00 90 11/04/18 20:00 97.0 78 17 125/62 (83) 98 11/04/18 16:00 98.1 82 17 116/62 (80) 100 11/04/18 16:00 82 11/04/18 14:08 108/58 11/04/18 12:00 98.7 80 17 108/58 (75) 100 11/04/18 12:00 87 Intake and Output 11/04/18 11/05/18 19:00 07:00 # Bowel Movements 2 1 Laboratory Tests 11/04/18 22:13: Urine Color June, Urine Appearance Cloudy, Urine pH 6.5, Urine Specific [place] 1.005, Urine Protein 1+H, Urine Glucose (UA) Negative, Urine Ketones Negative, Urine Blood 2+H, Urine Nitrite Negative, Urine Bilirubin 1+H, Urine Ictotest Positive, Urine Urobilinogen Normal, Urine Leukocyte Esterase 3+H, Urine RBC 5-10H, Urine WBC TntcH, Urine Squamous Epithelial Cells ModerateH, Urine Bacteria ManyH, Urine Yeast ManyH 11/05/18 09:25: White Blood Count 3.2L, Red Blood Count 3.67L, Hemoglobin 11.9L, Hematocrit 36.8L, Mean Corpuscular Volume 100H, Mean Corpuscular Hemoglobin 32.4H, Mean Corpuscular Hemoglobin Concent 32.2, Red Cell Distribution Width 13.2, Platelet Count 183, Mean Platelet Volume 9.0, Neutrophils (%) (Auto) , Lymphocytes (%) ( Auto) , Monocytes (%) (Auto) , Eosinophils (%) (Auto) , Basophils (%) (Auto) , Neutrophils % (Manual) [Pending], Lymphocytes % (Manual) [Pending], Platelet Estimate [Pending], Platelet Morphology [Pending], Sodium Level 144, Potassium Level 3.2L, Chloride Level 107, Carbon Dioxide Level 26, Anion Gap 11, Blood Urea Nitrogen 6L, Creatinine 0.9, Estimat Glomerular Filtration Rate , Glucose Level 125H, Calcium Level 9.5, Vitamin B12 Level 537, RBC Folate Hemolysate [ Pending], Red Blood Cell Folate [Pending], Vancomycin Level Trough 17.0H, Cyclosporine (by HPLC) [Pending] Height (Feet): 5 Height (Inches): 6.00 Weight (Pounds): 140 Kalin Hall MD Nov 05, 2018 10:40
[2018-11-05 12:00] VITALS: BP 158/60
[2018-11-05] MEDS ORDERED: cefTRIAXone 1 GM in D5W 55 ML IVPB SCH (13:00)
[2018-11-05] MEDS: D5 1/2NS 1,000 ML IV SCH (13:00)
--- NOTE | 2018-11-05 15:26 | Nephrology Progress Note ---
Assessment/Plan Assessment 1) ESRD s/P Kidney TXP 2) UTI 3) PVD with ischemic R foot Plan: IV ATB Subjective Subjective She is in alot of pain in the R hallux, some dysuria Objective Objective Last 24 Hour Vital Signs Date Time Temp Pulse Resp B/P (MAP) Pulse Ox O2 Delivery O2 Flow Rate FiO2 11/05/18 14:28 158/60 11/05/18 12:39 98.0 11/05/18 12:00 98.0 81 22 158/60 (92) 100 11/05/18 12:00 88 11/05/18 09:00 Room Air 11/05/18 08:24 81 124/63 11/05/18 08:23 81 124/63 11/05/18 08:00 74 11/05/18 08:00 98.0 80 22 143/98 (113) 100 11/05/18 06:00 124/63 11/05/18 04:00 81 11/05/18 04:00 96.4 77 17 124/63 (83) 99 11/05/18 00:00 96.6 85 17 111/64 (80) 99 11/05/18 00:00 80 11/04/18 21:00 Room Air 11/04/18 20:57 125/62 11/04/18 20:56 78 125/62 11/04/18 20:00 90 11/04/18 20:00 97.0 78 17 125/62 (83) 98 11/04/18 16:00 98.1 82 17 116/62 (80) 100 11/04/18 16:00 82 Intake and Output 11/04/18 11/05/18 19:00 07:00 # Bowel Movements 2 1 Laboratory Tests 11/04/18 22:13: Urine Color June, Urine Appearance Cloudy, Urine pH 6.5, Urine Specific [place] 1.005, Urine Protein 1+H, Urine Glucose (UA) Negative, Urine Ketones Negative, Urine Blood 2+H, Urine Nitrite Negative, Urine Bilirubin 1+H, Urine Ictotest Positive, Urine Urobilinogen Normal, Urine Leukocyte Esterase 3+H, Urine RBC 5-10H, Urine WBC TntcH, Urine Squamous Epithelial Cells ModerateH, Urine Bacteria ManyH, Urine Yeast ManyH 11/05/18 09:25: White Blood Count 3.2L, Red Blood Count 3.67L, Hemoglobin 11.9L, Hematocrit 36.8L, Mean Corpuscular Volume 100H, Mean Corpuscular Hemoglobin 32.4H, Mean Corpuscular Hemoglobin Concent 32.2, Red Cell Distribution Width 13.2, Platelet Count 183, Mean Platelet Volume 9.0, Neutrophils (%) (Auto) , Lymphocytes (%) ( Auto) , Monocytes (%) (Auto) , Eosinophils (%) (Auto) , Basophils (%) (Auto) , Differential Total Cells Counted 100, Neutrophils % (Manual) 59, Lymphocytes % ( Manual) 36, Monocytes % (Manual) 4, Eosinophils % (Manual) 0, Basophils % ( Manual) 1, Band Neutrophils 0, Platelet Estimate Adequate, Platelet Morphology Normal, Macrocytosis 1+, Sodium Level 144, Potassium Level 3.2L, Chloride Level 107, Carbon Dioxide Level 26, Anion Gap 11, Blood Urea Nitrogen 6L, Creatinine 0.9, Estimat Glomerular Filtration Rate , Glucose Level 125H, Calcium Level 9.5 , Vitamin B12 Level 537, RBC Folate Hemolysate [Pending], Red Blood Cell Folate [Pending], Vancomycin Level Trough 17.0H, Cyclosporine (by HPLC) [Pending] Height (Feet): 5 Height (Inches): 6.00 Weight (Pounds): 140 General Appearance: WD/WN, no apparent distress, alert EENT: PERRL/EOMI Neck: non-tender, normal alignment Cardiovascular: normal rate, regular rhythm, no JVD Respiratory/Chest: lungs clear Abdomen: normal bowel sounds, soft, tender - on the R transpalnted kidney Extremities: normal range of motion, non-tender 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
--- NOTE | 2018-11-05 15:30 | Consultation ---
DATE OF CONSULTATION: 11/05/2018 INFECTIOUS DISEASES CONSULTATION CONSULTING PHYSICIAN: Nikki Bob M.D. REFERRING PHYSICIAN: John Red M.D. REASON FOR CONSULTATION: Possible left foot cellulitis. HISTORY OF PRESENTING ILLNESS: This is an 78-year-old lady with history of peripheral vascular disease, kidney transplant, right [id number] amputation, and pacemaker placement, who comes in with pain in the left foot along with bright red blood while going to the bathroom in the . She also has diarrhea and Infectious Diseases consultation has been obtained for antibiotics. PAST MEDICAL HISTORY: 1. History of neuropathy. 2. Kidney transplant. 3. DVT. 4. Hypertension. 5. Peripheral arterial disease. 6. Right BKA. SOCIAL HISTORY: No history of smoking, alcohol, or drug use. FAMILY HISTORY: Noncontributory. REVIEW OF SYSTEMS: RESPIRATORY: No fever or chills. She has a cough. No shortness of breath or chest pain. CARDIAC: No chest pain. No palpitations. No dizziness. No syncope. GASTROINTESTINAL: No nausea. No vomiting. No abdominal pain. The patient has diarrhea with blood in the stool. MUSCULOSKELETAL: The patient complains of left foot pain. MEDICATIONS: As an inpatient, she is on temazepam, IV vancomycin, Norvasc, IV , cyclosporine, Florinef, [place], Protonix, Zosyn, hydralazine, Coreg, Remeron, Tylenol, Zofran, and Percocet. ALLERGIES: No known drug allergies. PHYSICAL EXAMINATION: VITAL SIGNS: Temperature of 98, T-max of 98.7, pulse of 80, respiratory rate 17, blood pressure 111/64, and O2 saturation of 99%. HEENT: Pupils equally reactive to light and accommodation. Mouth appears clean without thrush. NECK: Supple. No adenopathy. No JVD. CARDIOVASCULAR: Regular rate and rhythm. No murmurs. LUNGS: Clear to auscultation bilaterally. No crackles. No wheezes. ABDOMEN: Soft and nontender. No organomegaly. EXTREMITIES: No cyanosis, no clubbing, no edema. Left foot erythema noted. LABORATORY AND DIAGNOSTIC DATA: White count 3.2, hemoglobin 11.9, hematocrit 36.8, MCV 100, and platelet count of 183. Sodium 144, potassium 3.2, chloride 107, bicarb 26, BUN 6, creatinine 0.9, glucose 125, calcium 9.5. Total bilirubin 0.7. AST 21, ALT 10, and alkaline phosphatase 98. Total protein 8.4, albumin 3.4. Lipase of 137. UA showing too numerous to count white cells. Urine culture is growing E coli, which is susceptible to ceftriaxone, imipenem, Levaquin, piperacillin, and tazobactam. ASSESSMENT: This is an 78-year-old lady with history of kidney transplant, who comes in with. 1. E. Coli urinary tract infection. 2. Possible left foot cellulitis. 3. History of peripheral vascular disease. 4. History of kidney transplant. PLAN: 1. Continue IV vancomycin. 2. Discontinue Zosyn. 3. We will start the patient on ceftriaxone. 4. We will follow up cultures and adjust antibiotics accordingly. I would like to thank, Dr. Red, for this consultation. Nikki Bob M.D. DR: LUTHER JOB#: [id number] CC: Jhon Red M.D.
[2018-11-05 16:00] VITALS: BP 126/66
--- NOTE | 2018-11-05 16:39 | Diagnostic Imaging Report ---
Indication: Foot pain Technique: 3 views left foot Comparison: 12/18/2018 Findings: Bones are profoundly osteoporotic. Again demonstrated is hammertoe deformity of the second through fifth digits. There is also a flexion deformity of the great toe. This limits evaluation of the digits. There is evidence of prior bunionectomy. There is bony bridging of the basis of the third and fourth metatarsals, also previously demonstrated There is also metatarsus adductus and mild hallux valgus. No definite acute fractures. Surgical clips are seen in the ankle. No definite osseous erosions or other findings to suggest acute osteomyelitis demonstrated. There are vascular calcifications Impression: Limited exam, as described No definite acute bony trauma. No definite plain radiographic evidence evidence of osteomyelitis. Note, however, limited sensitivity of plain radiographs for such, particularly in the setting of profound osteoporotic change. Consider MRI or bone scan if there is high clinical suspicion.
[2018-11-05] MEDS: Levofloxacin 500mg tab ORAL SCH (17:54)
[2018-11-05] MEDS: Acetaminophen 500mg (ES) tab ORAL PRN (17:56)
--- NOTE | 2018-11-05 20:45 | Consultation ---
DATE OF CONSULTATION: 11/05/2018 CONSULTING PHYSICIAN: Andrés Guillory M.D. REFERRING PHYSICIAN: John Red M.D. REASON FOR CONSULTATION: For evaluation of hematuria. HISTORY OF PRESENT ILLNESS: This is an 78-year-old female. She is known to me from previous evaluations. She has a history of renal transplant. She was admitted to the hospital because of GI bleed and foot cellulitis. She has had some bright rectal bleeding by report and apparently there were small clots noted in her urine. Urology evaluation has been requested. The patient has some urinary frequency. PAST MEDICAL HISTORY: Significant for above. The patient has history of peripheral artery disease, neuropathy, kidney transplant, DVT, hypertension. PAST SURGICAL HISTORY: She has a kidney transplant, right below-knee amputation. MEDICATIONS: Current medications here in the hospital, the patient on Rocephin, Restoril, vancomycin, Norvasc, Imuran, cyclosporine, Florinef, [place], Protonix, Apresoline, Coreg, Remeron, vancomycin, Zofran, Percocet. ALLERGIES: No known drug allergies. SOCIAL HISTORY: The patient is a nonsmoker. REVIEW OF SYSTEMS: As above. FAMILY HISTORY: Noncontributory. PHYSICAL EXAMINATION: GENERAL: Elderly female. VITAL SIGNS: Temperature is 98, blood pressure is 158/60, pulse 81, respirations 22. HEENT: Normocephalic. NECK: Supple. ABDOMEN: Soft. EXTREMITIES: No clubbing, cyanosis. She has right BKA. LABORATORY DATA: BUN is 6, creatinine 0.9, potassium 3.2. White count 2.2, hemoglobin 11.9, platelets of 183. INR is 1.0. Admit UA showed 1+ protein, 5 to 10 rbc's, too numerous to count wbc's, many bacteria. Her urine culture from 11/03/2018 showed E. coli. DIAGNOSTIC IMAGING STUDIES: The patient had a CT scan of the abdomen and pelvis back in July of 2018 and at that time, there was mention of atrophy of council kidneys with cysts. There was also questionable cystitis as well as the right iliac fossa renal transplant with some hydronephrosis in the transplanted kidney, which may have been secondary to bladder distention. IMPRESSION: 1. Hematuria. 2. UTI. 3. Proteinuria. 4. Urinary frequency. 5. Possible neurogenic bladder. 6. Cystitis history. 7. Atrophy of council kidneys. 8. Renal cysts. 9. 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 PLAN AND DISCUSSION: The patient is to be monitored clinically. Apparently she has had some hematuria, which may be secondary to UTI and cystitis. At this time, I would recommend to monitor with antibiotics as ordered. At some point, she will need to have cystoscopy to evaluate the bladder. Her renal function appears to be stable at this time. I will order an ultrasound of the transplanted kidney regarding the status of the previous hydronephrosis noted on the CT scan. Any further recommendations forthcoming. Thank you, Dr. Red, for asking me to participate in this consultation. Andrés Guillory M.D. DR: GISSELL JOB#: [id number] CC: CATALINO
[2018-11-05 21:30] VITALS: BP 143/98
[2018-11-06] VITALS: BP 124/60
[2018-11-06] MEDS: D5 1/2NS 1,000 ML IV SCH ×2 (02:22→15:40)
[2018-11-06 04:09] VITALS: BP 112/81
[2018-11-06] MEDS: HydrALAZINE 25mg tab ORAL SCH ×2 (06:06→13:25)
[2018-11-06 08:11] VITALS: BP 138/74
[2018-11-06] MEDS: cycloSPORINE 100mg cap ORAL SCH ×2 (08:12→17:15)
[2018-11-06] MEDS: azaTHIOprine 50 MG TAB ORAL SCH (08:13)
[2018-11-06] MEDS: HYDROcodone/Acetamin 10/325 tab ORAL SCH (08:13)
--- NOTE | 2018-11-06 08:45 | General Progress Note ---
Assessment/Plan Assessment/Plan Assessment -? rectal bleeding (no blood or melena on rectal exam) vs just gross hematuria - patient declines to take GI preparation for colonoscopy or laxative to obtain BM - Anemia, ? hematologic basis (macrocytic) - s/p renal transplant, now with blood clots in urine - PVD, s/p amputations Recommendations - solid po - monitor for further rectal bleeding - Agree with holding Xarelto - Urology consult appreciated - no plans for GI w/u at this time since patient refused laxatives Subjective ROS Limited/Unobtainable: Yes Allergies: Coded Allergies: No Known Allergies (Verified , 05/29/09) Objective Last 24 Hour Vital Signs Date Time Temp Pulse Resp B/P (MAP) Pulse Ox O2 Delivery O2 Flow Rate FiO2 11/06/18 08:13 85 138/74 11/06/18 08:13 85 138/74 11/06/18 08:11 97.5 85 18 138/74 (95) 98 11/06/18 07:04 Room Air 11/06/18 06:06 122/75 11/06/18 04:35 90 11/06/18 04:09 98.1 79 18 112/81 (91) 98 11/06/18 00:00 75 11/06/18 00:00 97.5 88 18 124/60 (81) 99 11/05/18 22:09 143/98 11/05/18 21:45 Room Air 11/05/18 21:30 79 11/05/18 21:30 98.0 80 22 143/98 (113) 100 11/05/18 20:30 82 126/66 11/05/18 18:17 97.9 11/05/18 16:00 97.9 82 20 126/66 (86) 100 11/05/18 16:00 82 11/05/18 14:28 158/60 11/05/18 12:39 98.0 11/05/18 12:00 98.0 81 22 158/60 (92) 100 11/05/18 12:00 88 11/05/18 09:00 Room Air Intake and Output 11/05/18 11/06/18 18:59 06:59 Intake Total 675 ml Balance 675 ml IV Total 675 ml # Bowel Movements 1 Laboratory Tests 11/05/18 09:25: White Blood Count 3.2L, Red Blood Count 3.67L, Hemoglobin 11.9L, Hematocrit 36.8L, Mean Corpuscular Volume 100H, Mean Corpuscular Hemoglobin 32.4H, Mean Corpuscular Hemoglobin Concent 32.2, Red Cell Distribution Width 13.2, Platelet Count 183, Mean Platelet Volume 9.0, Neutrophils (%) (Auto) , Lymphocytes (%) ( Auto) , Monocytes (%) (Auto) , Eosinophils (%) (Auto) , Basophils (%) (Auto) , Differential Total Cells Counted 100, Neutrophils % (Manual) 59, Lymphocytes % ( Manual) 36, Monocytes % (Manual) 4, Eosinophils % (Manual) 0, Basophils % ( Manual) 1, Band Neutrophils 0, Platelet Estimate Adequate, Platelet Morphology Normal, Macrocytosis 1+, Sodium Level 144, Potassium Level 3.2L, Chloride Level 107, Carbon Dioxide Level 26, Anion Gap 11, Blood Urea Nitrogen 6L, Creatinine 0.9, Estimat Glomerular Filtration Rate , Glucose Level 125H, Calcium Level 9.5 , Vitamin B12 Level 537, RBC Folate Hemolysate [Pending], Red Blood Cell Folate [Pending], Vancomycin Level Trough 17.0H, Cyclosporine (by HPLC) [Pending] Height (Feet): 5 Height (Inches): 6.00 Weight (Pounds): 140 General Appearance: alert EENT: normal ENT inspection Neck: supple Cardiovascular: normal rate Respiratory/Chest: decreased breath sounds Abdomen: normal bowel sounds, non tender, soft Extremities: non-tender Fermin Cannon MD Nov 06, 2018 08:45
--- NOTE | 2018-11-06 09:19 | Urology Progress Note ---
Assessment/Plan Assessment/Plan 1. Hematuria. 2. UTI. 3. Proteinuria. 4. Urinary frequency. 5. Possible neurogenic bladder. 6. Cystitis history. 7. 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 8. Renal cysts. 9. 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 monitor clinically abx as ordered f/u on final urine cx f/u on u/s of transplant kidney cysto later Subjective Allergies: Coded Allergies: No Known Allergies (Verified , 05/29/09) Subjective all noted, feels fair, urine clearing by report Objective Last 24 Hour Vital Signs Date Time Temp Pulse Resp B/P (MAP) Pulse Ox O2 Delivery O2 Flow Rate FiO2 11/06/18 08:43 97.5 11/06/18 08:13 85 138/74 11/06/18 08:13 85 138/74 11/06/18 08:11 97.5 85 18 138/74 (95) 98 11/06/18 07:04 Room Air 11/06/18 06:06 122/75 11/06/18 04:35 90 11/06/18 04:09 98.1 79 18 112/81 (91) 98 11/06/18 00:00 75 11/06/18 00:00 97.5 88 18 124/60 (81) 99 11/05/18 22:09 143/98 11/05/18 21:45 Room Air 11/05/18 21:30 79 11/05/18 21:30 98.0 80 22 143/98 (113) 100 11/05/18 20:30 82 126/66 11/05/18 18:17 97.9 11/05/18 16:00 97.9 82 20 126/66 (86) 100 11/05/18 16:00 82 11/05/18 14:28 158/60 11/05/18 12:39 98.0 11/05/18 12:00 98.0 81 22 158/60 (92) 100 11/05/18 12:00 88 Intake and Output 11/05/18 11/06/18 18:59 06:59 Intake Total 675 ml Balance 675 ml IV Total 675 ml # Bowel Movements 1 Microbiology Date/Time Source Procedure Growth Status 11/04/18 22:13 Urine,Clean Catch Urine Culture - Preliminary Mixed Urogenital Contaminants Resulted Current Medications Medications (Trade) Dose Ordered Sig/Toya Route PRN Reason Start Time Stop Time Status Last Admin Dose Admin Acetaminophen (Tylenol) 500 mg Q4H PRN ORAL Mild Pain/Temp > 100.5 11/03/18 21:00 12/03/18 20:59 11/05/18 17:56 Acetaminophen/ Hydrocodone Bitart ([place] 10/325) 1 tab DAILY ORAL 11/04/18 09:00 11/11/18 08:59 11/06/18 08:13 Amlodipine Besylate (Norvasc) 5 mg DAILY ORAL 11/04/18 09:00 12/04/18 08:59 11/06/18 08:13 Azathioprine (Imuran) 75 mg DAILY ORAL 11/04/18 09:00 12/04/18 08:59 11/06/18 08:13 Carvedilol (Coreg) 3.125 mg EVERY 12 HOURS ORAL 11/03/18 21:00 12/03/18 20:59 11/06/18 08:13 Cyclosporine (SandIMMUNE) 100 mg BID ORAL 11/04/18 09:00 12/04/18 08:59 11/06/18 08:12 Dextrose/Sodium Chloride 1,000 ml @ 75 mls/hr [id number] IV 11/03/18 21:00 12/03/18 20:59 11/06/18 02:22 Fludrocortisone Acetate (Florinef) 0.1 mg DAILY ORAL 11/04/18 09:00 12/04/18 08:59 11/06/18 08:13 Hydralazine HCl (Apresoline) 25 mg EVERY 8 HOURS ORAL 11/03/18 22:00 12/03/18 21:59 11/06/18 06:06 Levofloxacin (Levaquin) 500 mg Q24H ORAL 11/05/18 18:00 11/12/18 17:59 11/05/18 17:54 Mirtazapine (Remeron) 15 mg BEDTIME ORAL 11/03/18 21:00 12/03/18 20:59 11/05/18 20:29 Ondansetron HCl (Zofran) 4 mg Q6H PRN IVP Nausea & Vomiting 11/03/18 21:00 12/03/18 20:59 Oxycodone/ Acetaminophen (Percocet 10/325) 1 tab Q4H PRN ORAL Severe Pain (Pain Scale 7-10) 11/03/18 21:00 11/10/18 20:59 11/06/18 03:23 Pantoprazole (Protonix) 40 mg DAILY ORAL 11/04/18 09:00 12/04/18 08:59 11/06/18 08:14 Temazepam (Restoril) 15 mg HSPRN PRN ORAL Insomnia 11/04/18 21:00 11/11/18 20:59 11/06/18 00:11 Laboratory Tests 11/05/18 09:25: White Blood Count 3.2L, Red Blood Count 3.67L, Hemoglobin 11.9L, Hematocrit 36.8L, Mean Corpuscular Volume 100H, Mean Corpuscular Hemoglobin 32.4H, Mean Corpuscular Hemoglobin Concent 32.2, Red Cell Distribution Width 13.2, Platelet Count 183, Mean Platelet Volume 9.0, Neutrophils (%) (Auto) , Lymphocytes (%) ( Auto) , Monocytes (%) (Auto) , Eosinophils (%) (Auto) , Basophils (%) (Auto) , Differential Total Cells Counted 100, Neutrophils % (Manual) 59, Lymphocytes % ( Manual) 36, Monocytes % (Manual) 4, Eosinophils % (Manual) 0, Basophils % ( Manual) 1, Band Neutrophils 0, Platelet Estimate Adequate, Platelet Morphology Normal, Macrocytosis 1+, Sodium Level 144, Potassium Level 3.2L, Chloride Level 107, Carbon Dioxide Level 26, Anion Gap 11, Blood Urea Nitrogen 6L, Creatinine 0.9, Estimat Glomerular Filtration Rate , Glucose Level 125H, Calcium Level 9.5 , Vitamin B12 Level 537, RBC Folate Hemolysate [Pending], Red Blood Cell Folate [Pending], Vancomycin Level Trough 17.0H, Cyclosporine (by HPLC) [Pending] Height (Feet): 5 Height (Inches): 6.00 Weight (Pounds): 140 Objective exam stable Andrés Guillory MD Nov 06, 2018 09:19
--- NOTE | 2018-11-06 11:07 | General Progress Note ---
Assessment/Plan Problem List: (1) Diarrhea ICD Codes: R19.7 - Diarrhea SNOMED: 35866246 (2) UTI (urinary tract infection) ICD Codes: N39.0 - Urinary tract infection, site not specified SNOMED: 41786463 (3) Encephalopathy acute ICD Codes: G93.40 - Encephalopathy acute SNOMED: 7400362 (4) DVT (deep venous thrombosis) ICD Codes: I82.409 - Acute embolism and thrombosis of unspecified deep veins of unspecified lower extremity SNOMED: 140460295 (5) Acute GI bleeding ICD Codes: K92.2 - Gastrointestinal hemorrhage, unspecified SNOMED: 70313139 (6) Failure to thrive in adult ICD Codes: R62.7 - Adult failure to thrive SNOMED: 314329380 Status: stable, progressing Assessment/Plan iv abx PPI rx off xarelto follow up cultures ?ivc filter- considered previously but deferred because of concern of damage( from thrombosis) to transplanted kidney monitor labs Subjective ROS Limited/Unobtainable: No Constitutional: Reports: malaise, weakness HEENT: Reports: no symptoms Cardiovascular: Reports: no symptoms Respiratory: Reports: no symptoms Gastrointestinal/Abdominal: Reports: no symptoms Genitourinary: Reports: hematuria Neurologic/Psychiatric: Reports: no symptoms Endocrine: Reports: no symptoms Hematologic/Lymphatic: Reports: no symptoms Allergies: Coded Allergies: No Known Allergies (Verified , 05/29/09) All Systems: reviewed and negative except above Subjective no melena or brbpr. +hematuria. venous duplex with acute dvt and chronic. pain controlled. no fever or chills Objective Last 24 Hour Vital Signs Date Time Temp Pulse Resp B/P (MAP) Pulse Ox O2 Delivery O2 Flow Rate FiO2 11/06/18 08:43 97.5 11/06/18 08:13 85 138/74 11/06/18 08:13 85 138/74 11/06/18 08:11 97.5 85 18 138/74 (95) 98 11/06/18 07:04 Room Air 11/06/18 06:06 122/75 11/06/18 04:35 90 11/06/18 04:09 98.1 79 18 112/81 (91) 98 11/06/18 00:00 75 11/06/18 00:00 97.5 88 18 124/60 (81) 99 11/05/18 22:09 143/98 11/05/18 21:45 Room Air 11/05/18 21:30 79 11/05/18 21:30 98.0 80 22 143/98 (113) 100 11/05/18 20:30 82 126/66 11/05/18 18:17 97.9 11/05/18 16:00 97.9 82 20 126/66 (86) 100 11/05/18 16:00 82 11/05/18 14:28 158/60 11/05/18 12:39 98.0 11/05/18 12:00 98.0 81 22 158/60 (92) 100 11/05/18 12:00 88 Intake and Output 11/05/18 11/06/18 18:59 06:59 Intake Total 675 ml Balance 675 ml IV Total 675 ml # Bowel Movements 1 Height (Feet): 5 Height (Inches): 6.00 Weight (Pounds): 140 General Appearance: WD/WN, alert Neck: supple Cardiovascular: normal peripheral pulses, normal rate Respiratory/Chest: chest wall non-tender, lungs clear, normal breath sounds Abdomen: normal bowel sounds, non tender, soft 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
--- NOTE | 2018-11-06 11:13 | Infectious Diseases Prog Note ---
Assessment/Plan Assessment/Plan antibiotics : po levoquin A 1. E. Coli urinary tract infection. 2. History of peripheral vascular disease. 3. History of kidney transplant. P 1. continue po levoquin 3 more days 2. will follow up cultures Subjective Constitutional: Denies: fever, chills Respiratory: Denies: shortness of breath, dry cough Gastrointestinal/Abdominal: Reports: diarrhea; Denies: nausea, vomiting Musculoskeletal: Reports: pain Allergies: Coded Allergies: No Known Allergies (Verified , 05/29/09) Objective Vital Signs Last 24 Hour Vital Signs Date Time Temp Pulse Resp B/P (MAP) Pulse Ox O2 Delivery O2 Flow Rate FiO2 11/06/18 08:43 97.5 11/06/18 08:13 85 138/74 11/06/18 08:13 85 138/74 11/06/18 08:11 97.5 85 18 138/74 (95) 98 11/06/18 07:04 Room Air 11/06/18 06:06 122/75 11/06/18 04:35 90 11/06/18 04:09 98.1 79 18 112/81 (91) 98 11/06/18 00:00 75 11/06/18 00:00 97.5 88 18 124/60 (81) 99 11/05/18 22:09 143/98 11/05/18 21:45 Room Air 11/05/18 21:30 79 11/05/18 21:30 98.0 80 22 143/98 (113) 100 11/05/18 20:30 82 126/66 11/05/18 18:17 97.9 11/05/18 16:00 97.9 82 20 126/66 (86) 100 11/05/18 16:00 82 11/05/18 14:28 158/60 11/05/18 12:39 98.0 11/05/18 12:00 98.0 81 22 158/60 (92) 100 11/05/18 12:00 88 Height (Feet): 5 Height (Inches): 6.00 Weight (Pounds): 140 Respiratory/Chest: lungs clear Cardiovascular: normal rate, regular rhythm, no gallop/murmur Abdomen: soft, non tender Extremities: other - left foot edema, right stump clean Microbiology Date/Time Source Procedure Growth Status 11/04/18 22:13 Urine,Clean Catch Urine Culture - Preliminary Mixed Urogenital Contaminants Resulted 11/03/18 18:20 Urine,Clean Catch Urine Culture - Final Escherichia Coli Complete Current Medications Medications (Trade) Dose Ordered Sig/Toya Route PRN Reason Start Time Stop Time Status Last Admin Dose Admin Acetaminophen (Tylenol) 500 mg Q4H PRN ORAL Mild Pain/Temp > 100.5 11/03/18 21:00 12/03/18 20:59 11/05/18 17:56 Acetaminophen/ Hydrocodone Bitart ([place] 10/325) 1 tab DAILY ORAL 11/04/18 09:00 11/11/18 08:59 11/06/18 08:13 Amlodipine Besylate (Norvasc) 5 mg DAILY ORAL 11/04/18 09:00 12/04/18 08:59 11/06/18 08:13 Azathioprine (Imuran) 75 mg DAILY ORAL 11/04/18 09:00 12/04/18 08:59 11/06/18 08:13 Carvedilol (Coreg) 3.125 mg EVERY 12 HOURS ORAL 11/03/18 21:00 12/03/18 20:59 11/06/18 08:13 Cyclosporine (SandIMMUNE) 100 mg BID ORAL 11/04/18 09:00 12/04/18 08:59 11/06/18 08:12 Dextrose/Sodium Chloride 1,000 ml @ 75 mls/hr [id number] IV 11/03/18 21:00 12/03/18 20:59 11/06/18 02:22 Fludrocortisone Acetate (Florinef) 0.1 mg DAILY ORAL 11/04/18 09:00 12/04/18 08:59 11/06/18 08:13 Hydralazine HCl (Apresoline) 25 mg EVERY 8 HOURS ORAL 11/03/18 22:00 12/03/18 21:59 11/06/18 06:06 Levofloxacin (Levaquin) 500 mg Q24H ORAL 11/05/18 18:00 11/12/18 17:59 11/05/18 17:54 Mirtazapine (Remeron) 15 mg BEDTIME ORAL 11/03/18 21:00 12/03/18 20:59 11/05/18 20:29 Ondansetron HCl (Zofran) 4 mg Q6H PRN IVP Nausea & Vomiting 11/03/18 21:00 12/03/18 20:59 Oxycodone/ Acetaminophen (Percocet 10/325) 1 tab Q4H PRN ORAL Severe Pain (Pain Scale 7-10) 11/03/18 21:00 11/10/18 20:59 11/06/18 03:23 Pantoprazole (Protonix) 40 mg DAILY ORAL 11/04/18 09:00 12/04/18 08:59 11/06/18 08:14 Temazepam (Restoril) 15 mg HSPRN PRN ORAL Insomnia 11/04/18 21:00 11/11/18 20:59 11/06/18 00:11 Nikki Bob MD Nov 06, 2018 11:13
--- NOTE | 2018-11-06 11:19 | General Progress Note ---
Assessment/Plan Problem List: (1) Diarrhea ICD Codes: R19.7 - Diarrhea SNOMED: 55810310 (2) UTI (urinary tract infection) ICD Codes: N39.0 - Urinary tract infection, site not specified SNOMED: 54147102 (3) Encephalopathy acute ICD Codes: G93.40 - Encephalopathy acute SNOMED: 8578528 (4) DVT (deep venous thrombosis) ICD Codes: I82.409 - Acute embolism and thrombosis of unspecified deep veins of unspecified lower extremity SNOMED: 807973306 (5) Acute GI bleeding ICD Codes: K92.2 - Gastrointestinal hemorrhage, unspecified SNOMED: 46565638 (6) Failure to thrive in adult ICD Codes: R62.7 - Adult failure to thrive SNOMED: 879132806 Status: stable, progressing Assessment/Plan iv abx PPI rx off xarelto follow up cultures ?ivc filter- considered previously but deferred because of concern of damage( from thrombosis) to transplanted kidney monitor labs vascular studies Subjective ROS Limited/Unobtainable: No Constitutional: Reports: malaise, weakness HEENT: Reports: no symptoms Cardiovascular: Reports: no symptoms Respiratory: Reports: no symptoms Gastrointestinal/Abdominal: Reports: no symptoms Genitourinary: Reports: hematuria Neurologic/Psychiatric: Reports: no symptoms Endocrine: Reports: no symptoms Hematologic/Lymphatic: Reports: no symptoms Allergies: Coded Allergies: No Known Allergies (Verified , 05/29/09) All Systems: reviewed and negative except above Subjective no melena or brbpr. +hematuria. venous duplex with acute dvt and chronic. pain controlled. no fever or chills. right foot pain Objective Last 24 Hour Vital Signs Date Time Temp Pulse Resp B/P (MAP) Pulse Ox O2 Delivery O2 Flow Rate FiO2 11/06/18 08:43 97.5 11/06/18 08:13 85 138/74 11/06/18 08:13 85 138/74 11/06/18 08:11 97.5 85 18 138/74 (95) 98 11/06/18 07:04 Room Air 11/06/18 06:06 122/75 11/06/18 04:35 90 11/06/18 04:09 98.1 79 18 112/81 (91) 98 11/06/18 00:00 75 11/06/18 00:00 97.5 88 18 124/60 (81) 99 11/05/18 22:09 143/98 11/05/18 21:45 Room Air 11/05/18 21:30 79 11/05/18 21:30 98.0 80 22 143/98 (113) 100 11/05/18 20:30 82 126/66 11/05/18 18:17 97.9 11/05/18 16:00 97.9 82 20 126/66 (86) 100 11/05/18 16:00 82 11/05/18 14:28 158/60 11/05/18 12:39 98.0 11/05/18 12:00 98.0 81 22 158/60 (92) 100 11/05/18 12:00 88 Intake and Output 11/05/18 11/06/18 18:59 06:59 Intake Total 675 ml Balance 675 ml IV Total 675 ml # Bowel Movements 1 Height (Feet): 5 Height (Inches): 6.00 Weight (Pounds): 140 General Appearance: WD/WN, alert Neck: supple Cardiovascular: normal peripheral pulses, normal rate, regular rhythm Respiratory/Chest: chest wall non-tender, lungs clear, normal breath sounds, no respiratory distress Abdomen: normal bowel sounds, non tender, soft, no organomegaly Edema: no edema noted Arm (L), no edema noted Arm (R), no edema noted Leg (L), no edema noted Leg (R), no edema noted Pedal (L), no edema noted Pedal (R), no edema noted Generalized John Red MD Nov 06, 2018 11:19
[2018-11-06 11:49] VITALS: BP 129/70
--- NOTE | 2018-11-06 15:03 | Nephrology Progress Note ---
Assessment/Plan Assessment 1) ESRD s/P Kidney TXP 2) UTI 3) PVD with ischemic R foot Plan: IV ATB Subjective Subjective She is in alot of pain in the R hallux, no new complaint Objective Objective Last 24 Hour Vital Signs Date Time Temp Pulse Resp B/P (MAP) Pulse Ox O2 Delivery O2 Flow Rate FiO2 11/06/18 13:25 129/70 11/06/18 11:49 97.5 84 18 129/70 (89) 98 11/06/18 08:43 97.5 11/06/18 08:13 85 138/74 11/06/18 08:13 85 138/74 11/06/18 08:11 97.5 85 18 138/74 (95) 98 11/06/18 07:04 Room Air 11/06/18 06:06 122/75 11/06/18 04:35 90 11/06/18 04:09 98.1 79 18 112/81 (91) 98 11/06/18 00:00 75 11/06/18 00:00 97.5 88 18 124/60 (81) 99 11/05/18 22:09 143/98 11/05/18 21:45 Room Air 11/05/18 21:30 79 11/05/18 21:30 98.0 80 22 143/98 (113) 100 11/05/18 20:30 82 126/66 11/05/18 18:17 97.9 11/05/18 16:00 97.9 82 20 126/66 (86) 100 11/05/18 16:00 82 Intake and Output 11/05/18 11/06/18 19:00 07:00 Intake Total 750 ml Balance 750 ml IV Total 750 ml # Bowel Movements 1 Height (Feet): 5 Height (Inches): 6.00 Weight (Pounds): 140 General Appearance: WD/WN, no apparent distress EENT: PERRL/EOMI Neck: non-tender, normal alignment Cardiovascular: normal rate, regular rhythm Respiratory/Chest: chest wall non-tender, lungs clear Abdomen: normal bowel sounds, non tender Extremities: normal range of motion, non-tender, other - R foot ischemia Neurologic: radio officer II-XII 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
[2018-11-06] MEDS: Levofloxacin 500mg tab ORAL SCH (17:15)
[2018-11-06 17:37] VITALS: BP 130/77
[2018-11-06 20:00] VITALS: BP 139/76
[2018-11-07] VITALS: BP 130/62
[2018-11-07] MEDS: HydrALAZINE 25mg tab ORAL SCH ×4 (00:18→22:46)
[2018-11-07] MEDS: D5 1/2NS 1,000 ML IV SCH ×3 (00:18→15:00)
[2018-11-07 04:00] VITALS: BP 123/62
[2018-11-07 07:51] VITALS: BP 130/70
[2018-11-07] MEDS: azaTHIOprine 50 MG TAB ORAL SCH (08:06)
[2018-11-07] MEDS: HYDROcodone/Acetamin 10/325 tab ORAL SCH (08:06)
--- NOTE | 2018-11-07 08:17 | General Progress Note ---
Assessment/Plan Assessment/Plan Assessment -? rectal bleeding (no blood or melena on rectal exam) vs just gross hematuria - patient declines to take GI preparation for colonoscopy or laxative to obtain BM - Anemia, ? hematologic basis (macrocytic) - s/p renal transplant, now with blood clots in urine - PVD, s/p amputations Recommendations - solid po - monitor for further rectal bleeding -fu stool ob - Agree with holding Xarelto - Urology consult appreciated - no plans for GI w/u at this time since patient refused laxatives Subjective ROS Limited/Unobtainable: Yes Allergies: Coded Allergies: No Known Allergies (Verified , 05/29/09) Subjective no event Objective Last 24 Hour Vital Signs Date Time Temp Pulse Resp B/P (MAP) Pulse Ox O2 Delivery O2 Flow Rate FiO2 11/07/18 08:05 90 130/70 11/07/18 07:51 98.2 90 18 130/70 (90) 98 11/07/18 07:17 Room Air 11/07/18 06:12 123/62 11/07/18 04:00 98.2 77 18 123/62 (82) 98 11/07/18 04:00 80 11/07/18 00:18 130/62 11/07/18 00:00 85 11/07/18 00:00 98.4 79 18 130/62 (84) 98 11/06/18 21:00 Room Air 11/06/18 20:44 88 139/76 11/06/18 20:00 79 11/06/18 20:00 97.9 88 18 139/76 (97) 99 11/06/18 17:37 97.5 85 18 130/77 (94) 98 11/06/18 13:25 129/70 11/06/18 11:49 97.5 84 18 129/70 (89) 98 11/06/18 08:43 97.5 Intake and Output 11/06/18 11/07/18 18:59 06:59 Intake Total 1530 ml 1058 ml Balance 1530 ml 1058 ml Intake Oral 1080 ml 180 ml IV Total 450 ml 878 ml # Voids 2 1 # Bowel Movements 1 Laboratory Tests 11/06/18 16:45: Stool Occult Blood [Pending] Height (Feet): 5 Height (Inches): 6.00 Weight (Pounds): 140 General Appearance: alert EENT: normal ENT inspection Neck: supple Cardiovascular: normal rate Respiratory/Chest: decreased breath sounds Abdomen: normal bowel sounds, non tender, soft Extremities: non-tender Fermin Cannon MD Nov 07, 2018 08:17
[2018-11-07] MEDS: cycloSPORINE 100mg cap ORAL SCH ×2 (08:24→17:16)
--- NOTE | 2018-11-07 09:22 | General Progress Note ---
Assessment/Plan Problem List: (1) Diarrhea ICD Codes: R19.7 - Diarrhea SNOMED: 31992583 (2) UTI (urinary tract infection) ICD Codes: N39.0 - Urinary tract infection, site not specified SNOMED: 92143186 (3) Encephalopathy acute ICD Codes: G93.40 - Encephalopathy acute SNOMED: 4361750 (4) DVT (deep venous thrombosis) ICD Codes: I82.409 - Acute embolism and thrombosis of unspecified deep veins of unspecified lower extremity SNOMED: 116678208 (5) Acute GI bleeding ICD Codes: K92.2 - Gastrointestinal hemorrhage, unspecified SNOMED: 39135385 (6) Failure to thrive in adult ICD Codes: R62.7 - Adult failure to thrive SNOMED: 646978367 Status: stable, progressing Assessment/Plan iv abx PPI rx off xarelto follow up cultures ?ivc filter- considered previously but deferred because of concern of damage( from thrombosis) to transplanted kidney monitor labs vascular studies Subjective ROS Limited/Unobtainable: No Constitutional: Reports: malaise, weakness HEENT: Reports: no symptoms Cardiovascular: Reports: no symptoms Respiratory: Reports: no symptoms Gastrointestinal/Abdominal: Reports: no symptoms Genitourinary: Reports: no symptoms Neurologic/Psychiatric: Reports: no symptoms Endocrine: Reports: no symptoms Hematologic/Lymphatic: Reports: no symptoms Allergies: Coded Allergies: No Known Allergies (Verified , 05/29/09) All Systems: reviewed and negative except above Subjective no melena or brbpr. no hematuria. venous duplex with acute dvt and chronic. pain controlled. no fever or chills. right foot pain Objective Last 24 Hour Vital Signs Date Time Temp Pulse Resp B/P (MAP) Pulse Ox O2 Delivery O2 Flow Rate FiO2 11/07/18 08:36 98.2 11/07/18 08:24 90 130/70 11/07/18 08:05 90 130/70 11/07/18 07:51 98.2 90 18 130/70 (90) 98 11/07/18 07:17 Room Air 11/07/18 06:12 123/62 11/07/18 04:00 98.2 77 18 123/62 (82) 98 11/07/18 04:00 80 11/07/18 00:18 130/62 11/07/18 00:00 85 11/07/18 00:00 98.4 79 18 130/62 (84) 98 11/06/18 21:00 Room Air 11/06/18 20:44 88 139/76 11/06/18 20:00 79 11/06/18 20:00 97.9 88 18 139/76 (97) 99 11/06/18 17:37 97.5 85 18 130/77 (94) 98 11/06/18 13:25 129/70 11/06/18 11:49 97.5 84 18 129/70 (89) 98 Intake and Output 11/06/18 11/07/18 18:59 06:59 Intake Total 1530 ml 1058 ml Balance 1530 ml 1058 ml Intake Oral 1080 ml 180 ml IV Total 450 ml 878 ml # Voids 2 1 # Bowel Movements 1 Laboratory Tests 11/06/18 16:45: Stool Occult Blood [Pending] Height (Feet): 5 Height (Inches): 6.00 Weight (Pounds): 140 Objective General Appearance: WD/WN, alert Neck: supple Cardiovascular: normal peripheral pulses, normal rate, regular rhythm Respiratory/Chest: chest wall non-tender, lungs clear, normal breath sounds, no respiratory distress Abdomen: normal bowel sounds, non tender, soft, no organomegaly Edema: no edema noted Arm (L), no edema noted Arm (R), no edema noted Leg (L), no edema noted Leg (R), no edema noted Pedal (L), no edema noted Pedal (R), no edema noted Generalized John Red MD Nov 07, 2018 09:22
--- NOTE | 2018-11-07 10:14 | Urology Progress Note ---
Assessment/Plan Assessment/Plan 1. Hematuria. 2. UTI. 3. Proteinuria. 4. Urinary frequency. 5. Possible neurogenic bladder. 6. Cystitis history. 7. Atrophy of [place] kidneys. 8. Renal cysts. 9. 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 monitor clinically abx as ordered consider adding antifungals, per ID f/u on final urine cx f/u on u/s of transplant kidney cysto later Subjective Allergies: Coded Allergies: No Known Allergies (Verified , 05/29/09) Subjective all noted, feels fair, urine clearing by report Objective Last 24 Hour Vital Signs Date Time Temp Pulse Resp B/P (MAP) Pulse Ox O2 Delivery O2 Flow Rate FiO2 11/07/18 08:36 98.2 11/07/18 08:24 90 130/70 11/07/18 08:05 90 130/70 11/07/18 07:51 98.2 90 18 130/70 (90) 98 11/07/18 07:17 Room Air 11/07/18 06:12 123/62 11/07/18 04:00 98.2 77 18 123/62 (82) 98 11/07/18 04:00 80 11/07/18 00:18 130/62 11/07/18 00:00 85 11/07/18 00:00 98.4 79 18 130/62 (84) 98 11/06/18 21:00 Room Air 11/06/18 20:44 88 139/76 11/06/18 20:00 79 11/06/18 20:00 97.9 88 18 139/76 (97) 99 11/06/18 17:37 97.5 85 18 130/77 (94) 98 11/06/18 13:25 129/70 11/06/18 11:49 97.5 84 18 129/70 (89) 98 Intake and Output 11/06/18 11/07/18 18:59 06:59 Intake Total 1530 ml 1058 ml Balance 1530 ml 1058 ml Intake Oral 1080 ml 180 ml IV Total 450 ml 878 ml # Voids 2 1 # Bowel Movements 1 Microbiology Date/Time Source Procedure Growth Status 11/06/18 16:45 Stool Clostridium difficile Toxin Assay - Final Complete 11/04/18 22:13 Urine,Clean Catch Urine Culture - Preliminary Yeast Species Mixed Urogenital Contaminants Resulted Current Medications Medications (Trade) Dose Ordered Sig/Toya Route PRN Reason Start Time Stop Time Status Last Admin Dose Admin Acetaminophen (Tylenol) 500 mg Q4H PRN ORAL Mild Pain/Temp > 100.5 11/03/18 21:00 12/03/18 20:59 11/05/18 17:56 Acetaminophen/ Hydrocodone Bitart ([place] 10/325) 1 tab DAILY ORAL 11/04/18 09:00 11/11/18 08:59 11/07/18 08:06 Amlodipine Besylate (Norvasc) 5 mg DAILY ORAL 11/04/18 09:00 12/04/18 08:59 11/07/18 08:24 Azathioprine (Imuran) 75 mg DAILY ORAL 11/04/18 09:00 12/04/18 08:59 11/07/18 08:06 Carvedilol (Coreg) 3.125 mg EVERY 12 HOURS ORAL 11/03/18 21:00 12/03/18 20:59 11/07/18 08:05 Cyclosporine (SandIMMUNE) 100 mg BID ORAL 11/04/18 09:00 12/04/18 08:59 11/07/18 08:24 Dextrose/Sodium Chloride 1,000 ml @ 75 mls/hr [id number] IV 11/03/18 21:00 12/03/18 20:59 11/07/18 00:18 Fludrocortisone Acetate (Florinef) 0.1 mg DAILY ORAL 11/04/18 09:00 12/04/18 08:59 11/07/18 08:05 Hydralazine HCl (Apresoline) 25 mg EVERY 8 HOURS ORAL 11/03/18 22:00 12/03/18 21:59 11/07/18 06:12 Levofloxacin (Levaquin) 500 mg Q24H ORAL 11/05/18 18:00 11/12/18 17:59 11/06/18 17:15 Mirtazapine (Remeron) 15 mg BEDTIME ORAL 11/03/18 21:00 12/03/18 20:59 11/06/18 20:44 Ondansetron HCl (Zofran) 4 mg Q6H PRN IVP Nausea & Vomiting 11/03/18 21:00 12/03/18 20:59 Oxycodone/ Acetaminophen (Percocet 10/325) 1 tab Q4H PRN ORAL Severe Pain (Pain Scale 7-10) 11/03/18 21:00 11/10/18 20:59 11/06/18 20:45 Pantoprazole (Protonix) 40 mg DAILY ORAL 11/04/18 09:00 12/04/18 08:59 11/07/18 08:24 Temazepam (Restoril) 15 mg HSPRN PRN ORAL Insomnia 11/04/18 21:00 11/11/18 20:59 11/06/18 00:11 Laboratory Tests 11/06/18 16:45: Stool Occult Blood [Pending] Height (Feet): 5 Height (Inches): 6.00 Weight (Pounds): 140 Objective exam stable Andrés Guillory MD Nov 07, 2018 10:07
--- NOTE | 2018-11-07 11:23 | Infectious Diseases Prog Note ---
Assessment/Plan Assessment/Plan A 1. E. Coli urinary tract infection. 2. History of peripheral vascular disease. 3. History of kidney transplant. P 1. continue Po Levaquin 2 more days 2. will follow up cultures Subjective ROS Limited/Unobtainable: No Constitutional: Reports: no symptoms HEENT: Reports: no symptoms Respiratory: Reports: productive cough Cardiovascular: Reports: no symptoms Gastrointestinal/Abdominal: Reports: no symptoms Genitourinary: Reports: no symptoms Musculoskeletal: Reports: pain, other - in legs Allergies: Coded Allergies: No Known Allergies (Verified , 05/29/09) Objective Vital Signs Last 24 Hour Vital Signs Date Time Temp Pulse Resp B/P (MAP) Pulse Ox O2 Delivery O2 Flow Rate FiO2 11/07/18 08:36 98.2 11/07/18 08:24 90 130/70 11/07/18 08:05 90 130/70 11/07/18 07:51 98.2 90 18 130/70 (90) 98 11/07/18 07:50 79 11/07/18 07:17 Room Air 11/07/18 06:12 123/62 11/07/18 04:00 98.2 77 18 123/62 (82) 98 11/07/18 04:00 80 11/07/18 00:18 130/62 11/07/18 00:00 85 11/07/18 00:00 98.4 79 18 130/62 (84) 98 11/06/18 21:00 Room Air 11/06/18 20:44 88 139/76 11/06/18 20:00 79 11/06/18 20:00 97.9 88 18 139/76 (97) 99 11/06/18 17:37 97.5 85 18 130/77 (94) 98 11/06/18 13:25 129/70 11/06/18 11:49 97.5 84 18 129/70 (89) 98 Height (Feet): 5 Height (Inches): 6.00 Weight (Pounds): 140 General Appearance: no acute distress HEENT: mucous membranes moist Respiratory/Chest: lungs clear Cardiovascular: normal rate Abdomen: soft, non tender Extremities: no edema, other - RBKA Skin: other - left great toe skin pigmentation/discoloration Neurologic/Psychiatric: alert, responsive Microbiology Date/Time Source Procedure Growth Status 11/06/18 16:45 Stool Clostridium difficile Toxin Assay - Final Complete 11/04/18 22:13 Urine,Clean Catch Urine Culture - Preliminary Yeast Species Mixed Urogenital Contaminants Resulted Laboratory Tests Test 11/06/18 16:45 Stool Occult Blood Pending Current Medications Medications (Trade) Dose Ordered Sig/Toya Route PRN Reason Start Time Stop Time Status Last Admin Dose Admin Acetaminophen (Tylenol) 500 mg Q4H PRN ORAL Mild Pain/Temp > 100.5 11/03/18 21:00 12/03/18 20:59 11/05/18 17:56 Acetaminophen/ Hydrocodone Bitart ([place] 10/325) 1 tab DAILY ORAL 11/04/18 09:00 11/11/18 08:59 11/07/18 08:06 Amlodipine Besylate (Norvasc) 5 mg DAILY ORAL 11/04/18 09:00 12/04/18 08:59 11/07/18 08:24 Azathioprine (Imuran) 75 mg DAILY ORAL 11/04/18 09:00 12/04/18 08:59 11/07/18 08:06 Carvedilol (Coreg) 3.125 mg EVERY 12 HOURS ORAL 11/03/18 21:00 12/03/18 20:59 11/07/18 08:05 Cyclosporine (SandIMMUNE) 100 mg BID ORAL 11/04/18 09:00 12/04/18 08:59 11/07/18 08:24 Dextrose/Sodium Chloride 1,000 ml @ 75 mls/hr [id number] IV 11/03/18 21:00 12/03/18 20:59 11/07/18 00:18 Fludrocortisone Acetate (Florinef) 0.1 mg DAILY ORAL 11/04/18 09:00 12/04/18 08:59 11/07/18 08:05 Hydralazine HCl (Apresoline) 25 mg EVERY 8 HOURS ORAL 11/03/18 22:00 12/03/18 21:59 11/07/18 06:12 Levofloxacin (Levaquin) 500 mg Q24H ORAL 11/05/18 18:00 11/12/18 17:59 11/06/18 17:15 Mirtazapine (Remeron) 15 mg BEDTIME ORAL 11/03/18 21:00 12/03/18 20:59 11/06/18 20:44 Ondansetron HCl (Zofran) 4 mg Q6H PRN IVP Nausea & Vomiting 11/03/18 21:00 12/03/18 20:59 Oxycodone/ Acetaminophen (Percocet 10/325) 1 tab Q4H PRN ORAL Severe Pain (Pain Scale 7-10) 11/03/18 21:00 11/10/18 20:59 11/06/18 20:45 Pantoprazole (Protonix) 40 mg DAILY ORAL 11/04/18 09:00 12/04/18 08:59 11/07/18 08:24 Temazepam (Restoril) 15 mg HSPRN PRN ORAL Insomnia 11/04/18 21:00 11/11/18 20:59 11/06/18 00:11 Lucian Maguire MD Nov 07, 2018 11:23
[2018-11-07 12:00] VITALS: BP 112/62
[2018-11-07 12:17] LABS: BASOPHILS % (AUTO) 1.1 % (0.0-2.0); EOSINOPHILS % (AUTO) 0.5 % (0.0-3.0); HEMATOCRIT 33.6 % (37.0-47.0); LYMPHOCYTES % (AUTO) 36.5 % (20.0-45.0); MEAN CORPUSCULAR VOLUME 101 FL (80-99); MONOCYTES % (AUTO) 3.9 % (1.0-10.0); PLATELET COUNT 151 K/UL (150-450); RED BLOOD COUNT 3.35 M/UL (4.20-5.40); RED CELL DISTRIBUTION WIDTH 13.9 % (11.6-14.8); WHITE BLOOD COUNT 3.9 K/UL (4.8-10.8)
[2018-11-07] MEDS: Acetaminophen 500mg (ES) tab ORAL PRN (13:48)
--- NOTE | 2018-11-07 15:11 | Nephrology Progress Note ---
Assessment/Plan Assessment 1) ESRD s/P Kidney TXP 2) UTI 3) PVD with ischemic R foot Plan: IV ATB Check UA Subjective Subjective She is in alot of pain in the R hallux, Objective Objective Last 24 Hour Vital Signs Date Time Temp Pulse Resp B/P (MAP) Pulse Ox O2 Delivery O2 Flow Rate FiO2 11/07/18 14:18 98.5 11/07/18 13:47 112/62 11/07/18 12:00 98.5 77 18 112/62 (79) 98 11/07/18 11:52 88 11/07/18 08:36 98.2 11/07/18 08:24 90 130/70 11/07/18 08:05 90 130/70 11/07/18 07:51 98.2 90 18 130/70 (90) 98 11/07/18 07:50 79 11/07/18 07:17 Room Air 11/07/18 06:12 123/62 11/07/18 04:00 98.2 77 18 123/62 (82) 98 11/07/18 04:00 80 11/07/18 00:18 130/62 11/07/18 00:00 85 11/07/18 00:00 98.4 79 18 130/62 (84) 98 11/06/18 21:00 Room Air 11/06/18 20:44 88 139/76 11/06/18 20:00 79 11/06/18 20:00 97.9 88 18 139/76 (97) 99 11/06/18 17:37 97.5 85 18 130/77 (94) 98 Intake and Output 11/06/18 11/07/18 18:59 06:59 Intake Total 1530 ml 1058 ml Balance 1530 ml 1058 ml Intake Oral 1080 ml 180 ml IV Total 450 ml 878 ml # Voids 2 1 # Bowel Movements 1 Laboratory Tests 11/06/18 16:45: Stool Occult Blood Negative 11/07/18 12:00: White Blood Count 3.9L, Red Blood Count 3.35L, Hemoglobin 11.0L, Hematocrit 33.6L, Mean Corpuscular Volume 101H, Mean Corpuscular Hemoglobin 33.0H, Mean Corpuscular Hemoglobin Concent 32.8, Red Cell Distribution Width 13.9, Platelet Count 151, Mean Platelet Volume 8.8, Neutrophils (%) (Auto) 58.0, Lymphocytes (% ) (Auto) 36.5, Monocytes (%) (Auto) 3.9, Eosinophils (%) (Auto) 0.5, Basophils ( %) (Auto) 1.1 Height (Feet): 5 Height (Inches): 6.00 Weight (Pounds): 140 General Appearance: WD/WN, no apparent distress EENT: PERRL/EOMI Neck: non-tender, normal alignment Cardiovascular: normal rate, regular rhythm, no JVD Respiratory/Chest: lungs clear Abdomen: soft, no organomegaly Extremities: normal range of motion, non-tender 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
[2018-11-07 16:00] VITALS: BP 141/75
[2018-11-07] MEDS: Levofloxacin 500mg tab ORAL SCH (17:16)
[2018-11-07 17:28] LABS: APPEARANCE,URINE CLOUDY; BILIRUBIN, URINE NEGATIVE (NEGATIVE); COLOR,URINE AMBER; GLUCOSE, URINE (UA) NEGATIVE (NEGATIVE); KETONES,URINE NEGATIVE (NEGATIVE); LEUKOCYTE ESTERASE ,URINE 3+ (NEGATIVE); NITRITE,URINE NEGATIVE (NEGATIVE); PH,URINE 6 (4.5-8.0); PROTEIN,URINE 1+ (NEGATIVE); UROBILINOGEN,URINE NORMAL MG/DL (0.0-1.0)
[2018-11-07 20:00] VITALS: BP 152/85
[2018-11-08] VITALS (7 sets, daily range): BP systolic 114–152; BP diastolic 66–85
[2018-11-08] MEDS: HydrALAZINE 25mg tab ORAL SCH ×3 (06:06→22:51)
[2018-11-08 07:28] LABS: BASOPHILS % (AUTO) 2.2 % (0.0-2.0); EOSINOPHILS % (AUTO) 0.9 % (0.0-3.0); HEMATOCRIT 29.9 % (37.0-47.0); LYMPHOCYTES % (AUTO) 51.5 % (20.0-45.0); MEAN CORPUSCULAR VOLUME 99 FL (80-99); MONOCYTES % (AUTO) 8.2 % (1.0-10.0); NEUTROPHILS % (AUTO) 37.3 % (45.0-75.0); PLATELET COUNT 128 K/UL (150-450); RED BLOOD COUNT 3.02 M/UL (4.20-5.40); RED CELL DISTRIBUTION WIDTH 13.3 % (11.6-14.8); WHITE BLOOD COUNT 3.6 K/UL (4.8-10.8)
--- NOTE | 2018-11-08 08:05 | General Progress Note ---
Assessment/Plan Problem List: (1) Diarrhea ICD Codes: R19.7 - Diarrhea SNOMED: 68374256 (2) UTI (urinary tract infection) ICD Codes: N39.0 - Urinary tract infection, site not specified SNOMED: 79433768 (3) Encephalopathy acute ICD Codes: G93.40 - Encephalopathy acute SNOMED: 1815021 (4) DVT (deep venous thrombosis) ICD Codes: I82.409 - Acute embolism and thrombosis of unspecified deep veins of unspecified lower extremity SNOMED: 495644030 (5) Acute GI bleeding ICD Codes: K92.2 - Gastrointestinal hemorrhage, unspecified SNOMED: 18574159 (6) Failure to thrive in adult ICD Codes: R62.7 - Adult failure to thrive SNOMED: 879298589 Status: stable, progressing Assessment/Plan iv abx PPI rx resume xarelto follow up cultures ?ivc filter- considered previously but deferred because of concern of damage( from thrombosis) to transplanted kidney monitor labs vascular studies Subjective ROS Limited/Unobtainable: No Constitutional: Reports: malaise, weakness HEENT: Reports: no symptoms Cardiovascular: Reports: no symptoms Respiratory: Reports: no symptoms Gastrointestinal/Abdominal: Reports: no symptoms Genitourinary: Reports: no symptoms Neurologic/Psychiatric: Reports: no symptoms Endocrine: Reports: no symptoms Hematologic/Lymphatic: Reports: no symptoms Allergies: Coded Allergies: No Known Allergies (Verified , 05/29/09) All Systems: reviewed and negative except above Subjective no melena or brbpr. no hematuria. venous duplex with acute dvt and chronic. pain controlled. no fever or chills. right foot pain Objective Last 24 Hour Vital Signs Date Time Temp Pulse Resp B/P (MAP) Pulse Ox O2 Delivery O2 Flow Rate FiO2 11/08/18 06:06 140/78 11/08/18 04:00 70 11/08/18 04:00 97.0 91 20 140/78 (98) 98 11/08/18 00:00 81 11/08/18 00:00 97.5 80 20 138/74 (95) 100 11/07/18 22:46 152/85 11/07/18 21:00 Room Air 11/07/18 20:42 84 152/85 11/07/18 20:00 98.0 84 20 152/85 (107) 100 11/07/18 20:00 79 2/3/19 16:08 90 11/07/18 16:00 98.5 87 18 141/75 (97) 98 11/07/18 14:18 98.5 11/07/18 13:47 112/62 11/07/18 12:00 98.5 77 18 112/62 (79) 98 11/07/18 11:52 88 11/07/18 08:36 98.2 11/07/18 08:24 90 130/70 Intake and Output 11/07/18 11/08/18 19:00 07:00 Intake Total 1860 ml 1155 ml Balance 1860 ml 1155 ml Intake Oral 960 ml 480 ml IV Total 900 ml 675 ml # Voids 2 Laboratory Tests 11/07/18 12:00: White Blood Count 3.9L, Red Blood Count 3.35L, Hemoglobin 11.0L, Hematocrit 33.6L, Mean Corpuscular Volume 101H, Mean Corpuscular Hemoglobin 33.0H, Mean Corpuscular Hemoglobin Concent 32.8, Red Cell Distribution Width 13.9, Platelet Count 151, Mean Platelet Volume 8.8, Neutrophils (%) (Auto) 58.0, Lymphocytes (% ) (Auto) 36.5, Monocytes (%) (Auto) 3.9, Eosinophils (%) (Auto) 0.5, Basophils ( %) (Auto) 1.1 11/07/18 16:27: Urine Color June, Urine Appearance Cloudy, Urine pH 6, Urine Specific [place] 1.010, Urine Protein 1+H, Urine Glucose (UA) Negative, Urine Ketones Negative, Urine Blood 1+H, Urine Nitrite Negative, Urine Bilirubin Negative, Urine Ictotest Negative, Urine Urobilinogen Normal, Urine Leukocyte Esterase 3+H, Urine RBC 5-10H, Urine WBC TntcH, Urine Squamous Epithelial Cells ModerateH, Urine Bacteria ManyH 11/08/18 06:55: White Blood Count 3.6L, Red Blood Count 3.02L, Hemoglobin 10.0L, Hematocrit 29.9L, Mean Corpuscular Volume 99, Mean Corpuscular Hemoglobin 33.0H, Mean Corpuscular Hemoglobin Concent 33.4, Red Cell Distribution Width 13.3, Platelet Count 128L, Mean Platelet Volume 8.6, Neutrophils (%) (Auto) 37.3L, Lymphocytes (%) (Auto) 51.5H, Monocytes (%) (Auto) 8.2, Eosinophils (%) (Auto) 0.9, Basophils (%) (Auto) 2.2H Height (Feet): 5 Height (Inches): 6.00 Weight (Pounds): 140 Objective General Appearance: WD/WN, alert Neck: supple Cardiovascular: normal peripheral pulses, normal rate, regular rhythm Respiratory/Chest: chest wall non-tender, lungs clear, normal breath sounds, no respiratory distress Abdomen: normal bowel sounds, non tender, soft, no organomegaly Edema: no edema noted Arm (L), no edema noted Arm (R), no edema noted Leg (L), no edema noted Leg (R), no edema noted Pedal (L), no edema noted Pedal (R), no edema noted Generalized John Red MD Nov 08, 2018 08:05
[2018-11-08] MEDS: HYDROcodone/Acetamin 10/325 tab ORAL SCH (09:00)
[2018-11-08] MEDS: cycloSPORINE 100mg cap ORAL SCH ×2 (09:07→18:30)
[2018-11-08] MEDS: azaTHIOprine 50 MG TAB ORAL SCH (09:07)
[2018-11-08] MEDS: Xarelto 10mg tab ORAL SCH (09:07)
[2018-11-08] MEDS: D5 1/2NS 1,000 ML IV SCH ×2 (09:09→21:02)
[2018-11-08] MEDS ORDERED: D5 1/2NS 1000ml IV ONE (10:25)
--- NOTE | 2018-11-08 10:29 | Urology Progress Note ---
Assessment/Plan Assessment/Plan 1. Hematuria. 2. UTI. 3. Proteinuria. 4. Urinary frequency. 5. Possible neurogenic bladder. 6. Cystitis history. 7. Atrophy of [place] kidneys. 8. Renal cysts. 9. 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 monitor clinically abx as ordered f/u on u/s of transplant kidney cysto later Subjective Allergies: Coded Allergies: No Known Allergies (Verified , 05/29/09) Subjective all noted, feels fair, urine clearing by report Objective Last 24 Hour Vital Signs Date Time Temp Pulse Resp B/P (MAP) Pulse Ox O2 Delivery O2 Flow Rate FiO2 11/08/18 09:39 97.0 11/08/18 09:08 85 126/71 11/08/18 09:08 85 126/71 11/08/18 06:06 140/78 11/08/18 04:00 70 11/08/18 04:00 97.0 91 20 140/78 (98) 98 11/08/18 00:00 81 11/08/18 00:00 97.5 80 20 138/74 (95) 100 11/07/18 22:46 152/85 11/07/18 21:00 Room Air 11/07/18 20:42 84 152/85 11/07/18 20:00 98.0 84 20 152/85 (107) 100 11/07/18 20:00 79 11/07/18 16:08 90 11/07/18 16:00 98.5 87 18 141/75 (97) 98 11/07/18 14:18 98.5 11/07/18 13:47 112/62 11/07/18 12:00 98.5 77 18 112/62 (79) 98 11/07/18 11:52 88 Intake and Output 11/07/18 11/08/18 18:59 06:59 Intake Total 1860 ml 1230 ml Balance 1860 ml 1230 ml Intake Oral 960 ml 480 ml IV Total 900 ml 750 ml # Voids 2 1 Microbiology Date/Time Source Procedure Growth Status 11/06/18 16:45 Stool Clostridium difficile Toxin Assay - Final Complete 11/07/18 16:27 Urine,Clean Catch Urine Culture - Preliminary NO GROWTH Resulted Current Medications Medications (Trade) Dose Ordered Sig/Toya Route PRN Reason Start Time Stop Time Status Last Admin Dose Admin Acetaminophen (Tylenol) 500 mg Q4H PRN ORAL Mild Pain/Temp > 100.5 11/03/18 21:00 12/03/18 20:59 11/07/18 13:48 Acetaminophen/ Hydrocodone Bitart ([place] 10/325) 1 tab DAILY ORAL 11/04/18 09:00 11/11/18 08:59 11/07/18 08:06 Amlodipine Besylate (Norvasc) 5 mg DAILY ORAL 11/04/18 09:00 12/04/18 08:59 11/08/18 09:08 Azathioprine (Imuran) 75 mg DAILY ORAL 11/04/18 09:00 12/04/18 08:59 11/08/18 09:07 Carvedilol (Coreg) 3.125 mg EVERY 12 HOURS ORAL 11/03/18 21:00 12/03/18 20:59 11/08/18 09:08 Cyclosporine (SandIMMUNE) 100 mg BID ORAL 11/04/18 09:00 12/04/18 08:59 11/08/18 09:07 Dextrose/Sodium Chloride 1,000 ml @ 75 mls/hr [id number] IV 11/03/18 21:00 12/03/18 20:59 11/08/18 09:09 Fludrocortisone Acetate (Florinef) 0.1 mg DAILY ORAL 11/04/18 09:00 12/04/18 08:59 11/08/18 09:08 Hydralazine HCl (Apresoline) 25 mg EVERY 8 HOURS ORAL 11/03/18 22:00 12/03/18 21:59 11/08/18 06:06 Levofloxacin (Levaquin) 500 mg Q24H ORAL 11/05/18 18:00 11/12/18 17:59 11/07/18 17:16 Mirtazapine (Remeron) 15 mg BEDTIME ORAL 11/03/18 21:00 12/03/18 20:59 11/07/18 20:42 Ondansetron HCl (Zofran) 4 mg Q6H PRN IVP Nausea & Vomiting 11/03/18 21:00 12/03/18 20:59 Oxycodone/ Acetaminophen (Percocet 10/325) 1 tab Q4H PRN ORAL Severe Pain (Pain Scale 7-10) 11/03/18 21:00 11/10/18 20:59 11/08/18 09:09 Pantoprazole (Protonix) 40 mg DAILY ORAL 11/04/18 09:00 12/04/18 08:59 11/08/18 09:08 Rivaroxaban (Xarelto) 10 mg DAILY ORAL 11/08/18 09:00 12/08/18 08:59 11/08/18 09:07 Temazepam (Restoril) 15 mg HSPRN PRN ORAL Insomnia 11/04/18 21:00 11/11/18 20:59 11/06/18 00:11 Laboratory Tests 11/07/18 12:00: White Blood Count 3.9L, Red Blood Count 3.35L, Hemoglobin 11.0L, Hematocrit 33.6L, Mean Corpuscular Volume 101H, Mean Corpuscular Hemoglobin 33.0H, Mean Corpuscular Hemoglobin Concent 32.8, Red Cell Distribution Width 13.9, Platelet Count 151, Mean Platelet Volume 8.8, Neutrophils (%) (Auto) 58.0, Lymphocytes (% ) (Auto) 36.5, Monocytes (%) (Auto) 3.9, Eosinophils (%) (Auto) 0.5, Basophils ( %) (Auto) 1.1 11/07/18 16:27: Urine Color June, Urine Appearance Cloudy, Urine pH 6, Urine Specific [place] 1.010, Urine Protein 1+H, Urine Glucose (UA) Negative, Urine Ketones Negative, Urine Blood 1+H, Urine Nitrite Negative, Urine Bilirubin Negative, Urine Ictotest Negative, Urine Urobilinogen Normal, Urine Leukocyte Esterase 3+H, Urine RBC 5-10H, Urine WBC TntcH, Urine Squamous Epithelial Cells ModerateH, Urine Bacteria ManyH 11/08/18 06:55: White Blood Count 3.6L, Red Blood Count 3.02L, Hemoglobin 10.0L, Hematocrit 29.9L, Mean Corpuscular Volume 99, Mean Corpuscular Hemoglobin 33.0H, Mean Corpuscular Hemoglobin Concent 33.4, Red Cell Distribution Width 13.3, Platelet Count 128L, Mean Platelet Volume 8.6, Neutrophils (%) (Auto) 37.3L, Lymphocytes (%) (Auto) 51.5H, Monocytes (%) (Auto) 8.2, Eosinophils (%) (Auto) 0.9, Basophils (%) (Auto) 2.2H Height (Feet): 5 Height (Inches): 6.00 Weight (Pounds): 140 Objective exam stable renal u/s done, result pending Andrés Guillory MD Nov 08, 2018 10:29
--- NOTE | 2018-11-08 10:59 | Infectious Diseases Prog Note ---
"Assessment/Plan Assessment/Plan antibiotics : po levoquin A 1. E. Coli | fungal urinary tract infection 2. History of peripheral vascular disease. 3. History of kidney transplant. P 1. continue po levoquin 1 more day 2. start fluconazole 3. will follow up cultures Subjective Constitutional: Denies: fever, chills Respiratory: Reports: dry cough; Denies: shortness of breath Gastrointestinal/Abdominal: Reports: diarrhea; Denies: nausea, vomiting Musculoskeletal: Reports: pain Allergies: Coded Allergies: No Known Allergies (Verified , 05/29/09) Objective Vital Signs Last 24 Hour Vital Signs Date Time Temp Pulse Resp B/P (MAP) Pulse Ox O2 Delivery O2 Flow Rate FiO2 11/08/18 09:39 97.0 11/08/18 09:08 85 126/71 11/08/18 09:08 85 126/71 11/08/18 06:06 140/78 11/08/18 04:00 70 11/08/18 04:00 97.0 91 20 140/78 (98) 98 11/08/18 00:00 81 11/08/18 00:00 97.5 80 20 138/74 (95) 100 11/07/18 22:46 152/85 11/07/18 21:00 Room Air 11/07/18 20:42 84 152/85 11/07/18 20:00 98.0 84 20 152/85 (107) 100 11/07/18 20:00 79 11/07/18 16:08 90 11/07/18 16:00 98.5 87 18 141/75 (97) 98 11/07/18 14:18 98.5 11/07/18 13:47 112/62 11/07/18 12:00 98.5 77 18 112/62 (79) 98 11/07/18 11:52 88 Height (Feet): 5 Height (Inches): 6.00 Weight (Pounds): 140 Respiratory/Chest: lungs clear Cardiovascular: normal rate, regular rhythm, no gallop/murmur Abdomen: soft, non tender Extremities: other - left foot edema, right stump clean Microbiology Date/Time Source Procedure Growth Status 11/06/18 16:45 Stool Clostridium difficile Toxin Assay - Final Complete 11/07/18 16:27 Urine,Clean Catch Urine Culture - Preliminary NO GROWTH Resulted Laboratory Tests Test 11/07/18 12:00 11/07/18 16:27 11/08/18 06:55 White Blood Count 3.9 K/UL (4.8-10.8) L 3.6 K/UL (4.8-10.8) L Red Blood Count 3.35 M/UL (4.20-5.40) L 3.02 M/UL (4.20-5.40) L Hemoglobin 11.0 G/DL (12.0-16.0) L 10.0 G/DL (12.0-16.0) L Hematocrit 33.6 % (37.0-47.0) L 29.9 % (37.0-47.0) L Mean Corpuscular Volume 101 FL (80-99) H 99 FL (80-99) Mean Corpuscular Hemoglobin 33.0 PG (27.0-31.0) H 33.0 PG (27.0-31.0) H Mean Corpuscular Hemoglobin Concent 32.8 G/DL (32.0-36.0) 33.4 G/DL (32.0-36.0) Red Cell Distribution Width 13.9 % (11.6-14.8) 13.3 % (11.6-14.8) Platelet Count 151 K/UL (150-450) 128 K/UL (150-450) L Mean Platelet Volume 8.8 FL (6.5-10.1) 8.6 FL (6.5-10.1) Neutrophils (%) (Auto) 58.0 % (45.0-75.0) 37.3 % (45.0-75.0) L Lymphocytes (%) (Auto) 36.5 % (20.0-45.0) 51.5 % (20.0-45.0) H Monocytes (%) (Auto) 3.9 % (1.0-10.0) 8.2 % (1.0-10.0) Eosinophils (%) (Auto) 0.5 % (0.0-3.0) 0.9 % (0.0-3.0) Basophils (%) (Auto) 1.1 % (0.0-2.0) 2.2 % (0.0-2.0) H Urine Color June Urine Appearance Cloudy Urine pH 6 (4.5-8.0) Urine Specific [place] 1.010 (1.005-1.035) Urine Protein 1+ (NEGATIVE) H Urine Glucose (UA) Negative (NEGATIVE) Urine Ketones Negative (NEGATIVE) Urine Blood 1+ (NEGATIVE) H Urine Nitrite Negative (NEGATIVE) Urine Bilirubin Negative (NEGATIVE) Urine Ictotest Negative (NEGATIVE) Urine Urobilinogen Normal MG/DL (0.0-1.0) Urine Leukocyte Esterase 3+ (NEGATIVE) H Urine RBC 5-10 /HPF (0 - 2) H Urine WBC Tntc /HPF (0 - 2) H Urine Squamous Epithelial Cells Moderate /LPF (NONE/OCC) H Urine Bacteria Many /HPF (NONE) H Current Medications Medications (Trade) Dose Ordered Sig/Toya Route PRN Reason Start Time Stop Time Status Last Admin Dose Admin Acetaminophen (Tylenol) 500 mg Q4H PRN ORAL Mild Pain/Temp > 100.5 11/03/18 21:00 12/03/18 20:59 11/07/18 13:48 Acetaminophen/ Hydrocodone Bitart ([place] 10/325) 1 tab DAILY ORAL 11/04/18 09:00 11/11/18 08:59 11/07/18 08:06 Amlodipine Besylate (Norvasc) 5 mg DAILY ORAL 11/04/18 09:00 12/04/18 08:59 11/08/18 09:08 Azathioprine (Imuran) 75 mg DAILY ORAL 11/04/18 09:00 12/04/18 08:59 11/08/18 09:07 Carvedilol (Coreg) 3.125 mg EVERY 12 HOURS ORAL 11/03/18 21:00 12/03/18 20:59 11/08/18 09:08 Cyclosporine (SandIMMUNE) 100 mg BID ORAL 11/04/18 09:00 12/04/18 08:59 11/08/18 09:07 Dextrose/Sodium Chloride 1,000 ml @ 75 mls/hr [id number] IV 11/03/18 21:00 12/03/18 20:59 11/08/18 09:09 Fludrocortisone Acetate (Florinef) 0.1 mg DAILY ORAL 11/04/18 09:00 12/04/18 08:59 11/08/18 09:08 Hydralazine HCl (Apresoline) 25 mg EVERY 8 HOURS ORAL 11/03/18 22:00 12/03/18 21:59 11/08/18 06:06 Levofloxacin (Levaquin) 500 mg Q24H ORAL 11/05/18 18:00 11/12/18 17:59 11/07/18 17:16 Mirtazapine (Remeron) 15 mg BEDTIME ORAL 11/03/18 21:00 12/03/18 20:59 11/07/18 20:42 Ondansetron HCl (Zofran) 4 mg Q6H PRN IVP Nausea & Vomiting 11/03/18 21:00 12/03/18 20:59 Oxycodone/ Acetaminophen (Percocet 10/325) 1 tab Q4H PRN ORAL Severe Pain (Pain Scale 7-10) 11/03/18 21:00 11/10/18 20:59 11/08/18 09:09 Pantoprazole (Protonix) 40 mg DAILY ORAL 11/04/18 09:00 12/04/18 08:59 11/08/18 09:08 Rivaroxaban (Xarelto) 10 mg DAILY ORAL 11/08/18 09:00 12/08/18 08:59 11/08/18 09:07 Temazepam (Restoril) 15 mg HSPRN PRN ORAL Insomnia 11/04/18 21:00 11/11/18 20:59 11/06/18 00:11 Nikki Bob MD Nov 08, 2018 10:59"
[2018-11-08] MEDS: Fluconazole 100mg tab ORAL SCH (11:38)
--- NOTE | 2018-11-08 14:17 | Diagnostic Imaging Report ---
Indication:Elevated Bun and Creatinine. Technique: Grayscale and duplex Doppler imaging of the kidneys performed. Comparison: CT 07/21/2018 Findings: Previous CT showed hydronephrosis of the transplanted right iliac fossa kidney. Currently, there is no evidence of hydronephrosis and the allograft measuring approximately 13 cm in length. Assessment of a Doppler waveforms sampling shows low resistance type waveform with flow throughout the cardiac cycle. Resistive indices appear borderline elevated between 0.77 and 0.81. Please correlate clinically. The urinary bladder is unremarkable. The [place] kidneys are echogenic and small consistent with the given history of end-stage renal disease. IVC is unremarkable. IMPRESSION: Unremarkable appearance of the right iliac fossa transplant kidney. No hydronephrosis. Borderline resistive indices could be related to possible chronic rejection. Please correlate clinically.
--- NOTE | 2018-11-08 15:57 | GI Progress Note ---
Assessment/Plan Problems: (1) Failure to thrive in adult ICD Codes: R62.7 - Adult failure to thrive SNOMED: 719582159 (2) Acute GI bleeding ICD Codes: K92.2 - Gastrointestinal hemorrhage, unspecified SNOMED: 08132174 (3) Diarrhea ICD Codes: R19.7 - Diarrhea SNOMED: 68409562 (4) GIB (gastrointestinal bleeding) ICD Codes: K92.2 - Gastrointestinal hemorrhage, unspecified SNOMED: 71997738 (5) Abdominal pain ICD Codes: R10.9 - Abdominal pain SNOMED: 17904153 (6) Phantom limb pain ICD Codes: G54.6 - Phantom limb syndrome with pain SNOMED: 9536323075134 (7) Dehydration ICD Codes: E86.0 - Dehydration SNOMED: 39972525 (8) Colitis ICD Codes: K52.9 - Colitis SNOMED: 264192927 Status: unchanged Status Narrative Discussed with Dr. Cannon Assessment/Plan Assessment - rectal bleeding (no blood or melena on rectal exam) vs just gross hematuria. OB stool negative. - patient declines to take GI preparation for colonoscopy or laxative to obtain BM - Anemia, ? hematologic basis (macrocytic) - s/p renal transplant, now with blood clots in urine - PVD, s/p amputations - C. difficile negative -Stable H&H Recommendations - solid po - monitor for further rectal bleeding - Agree with holding Xarelto - Urology consult appreciated - no plans for GI w/u at this time since patient refused laxatives. -Imodium as needed Follow-up labs The patient was seen and examined at bedside and all new and available data was reviewed in the patients chart. I agree with the above findings, impression and plan. (Patient seen earlier today. Signature stamp does not reflect patient encounter time.). - Fermin Cannon MD Subjective Subjective Patient has complaint of abdominal pain States he been having diarrhea for the past 3 days Complaint of lower extremity pain Objective Last 24 Hour Vital Signs Date Time Temp Pulse Resp B/P (MAP) Pulse Ox O2 Delivery O2 Flow Rate FiO2 11/08/18 15:09 152/85 11/08/18 12:00 97.0 91 20 152/85 (107) 99 11/08/18 09:39 97.0 11/08/18 09:08 85 126/71 11/08/18 09:08 85 126/71 11/08/18 09:00 Room Air 11/08/18 08:00 80 11/08/18 08:00 98.3 85 21 126/71 (89) 99 11/08/18 06:06 140/78 11/08/18 04:00 70 11/08/18 04:00 97.0 91 20 140/78 (98) 98 11/08/18 00:00 81 11/08/18 00:00 97.5 80 20 138/74 (95) 100 11/07/18 22:46 152/85 11/07/18 21:00 Room Air 11/07/18 20:42 84 152/85 11/07/18 20:00 98.0 84 20 152/85 (107) 100 11/07/18 20:00 79 11/07/18 16:08 90 11/07/18 16:00 98.5 87 18 141/75 (97) 98 Intake and Output 11/07/18 11/08/18 18:59 06:59 Intake Total 1860 ml 1230 ml Balance 1860 ml 1230 ml Intake Oral 960 ml 480 ml IV Total 900 ml 750 ml # Voids 2 1 Laboratory Tests Test 11/07/18 16:27 11/08/18 06:55 Urine Color June Urine Appearance Cloudy Urine pH 6 (4.5-8.0) Urine Specific [place] 1.010 (1.005-1.035) Urine Protein 1+ (NEGATIVE) H Urine Glucose (UA) Negative (NEGATIVE) Urine Ketones Negative (NEGATIVE) Urine Blood 1+ (NEGATIVE) H Urine Nitrite Negative (NEGATIVE) Urine Bilirubin Negative (NEGATIVE) Urine Ictotest Negative (NEGATIVE) Urine Urobilinogen Normal MG/DL (0.0-1.0) Urine Leukocyte Esterase 3+ (NEGATIVE) H Urine RBC 5-10 /HPF (0 - 2) H Urine WBC Tntc /HPF (0 - 2) H Urine Squamous Epithelial Cells Moderate /LPF (NONE/OCC) H Urine Bacteria Many /HPF (NONE) H White Blood Count 3.6 K/UL (4.8-10.8) L Red Blood Count 3.02 M/UL (4.20-5.40) L Hemoglobin 10.0 G/DL (12.0-16.0) L Hematocrit 29.9 % (37.0-47.0) L Mean Corpuscular Volume 99 FL (80-99) Mean Corpuscular Hemoglobin 33.0 PG (27.0-31.0) H Mean Corpuscular Hemoglobin Concent 33.4 G/DL (32.0-36.0) Red Cell Distribution Width 13.3 % (11.6-14.8) Platelet Count 128 K/UL (150-450) L Mean Platelet Volume 8.6 FL (6.5-10.1) Neutrophils (%) (Auto) 37.3 % (45.0-75.0) L Lymphocytes (%) (Auto) 51.5 % (20.0-45.0) H Monocytes (%) (Auto) 8.2 % (1.0-10.0) Eosinophils (%) (Auto) 0.9 % (0.0-3.0) Basophils (%) (Auto) 2.2 % (0.0-2.0) H Microbiology Date/Time Source Procedure Growth Status 11/07/18 16:27 Urine,Clean Catch Urine Culture - Preliminary NO GROWTH Resulted Height (Feet): 5 Height (Inches): 6.00 Weight (Pounds): 140 General Appearance: WD/WN, no apparent distress, alert Cardiovascular: normal rate Respiratory/Chest: normal breath sounds, no respiratory distress Abdominal Exam: normal bowel sounds, non tender, soft Extremities: non-tender Saranya Ge NP Nov 08, 2018 15:57
[2018-11-08] MEDS ORDERED: Loperamide 2mg cap ORAL PRN (16:00)
[2018-11-08] MEDS: Levofloxacin 500mg tab ORAL SCH (18:30)
--- NOTE | 2018-11-08 19:26 | Nephrology Progress Note ---
Assessment/Plan Assessment 1) ESRD s/P Kidney TXP 2) UTI 3) PVD with ischemic R foot Plan: IV ATB Labs tomorrow Subjective Subjective She is doing status quo, no c/p or sob, UA shows pyuria Objective Objective Last 24 Hour Vital Signs Date Time Temp Pulse Resp B/P (MAP) Pulse Ox O2 Delivery O2 Flow Rate FiO2 11/08/18 19:01 97.5 11/08/18 16:00 74 11/08/18 16:00 97.5 74 20 139/67 (91) 97 11/08/18 15:09 152/85 11/08/18 12:00 97.0 91 20 152/85 (107) 99 11/08/18 12:00 79 11/08/18 09:08 85 126/71 11/08/18 09:08 85 126/71 11/08/18 09:00 Room Air 11/08/18 08:00 80 11/08/18 08:00 98.3 85 21 126/71 (89) 99 11/08/18 06:06 140/78 11/08/18 04:00 70 11/08/18 04:00 97.0 91 20 140/78 (98) 98 11/08/18 00:00 81 11/08/18 00:00 97.5 80 20 138/74 (95) 100 11/07/18 22:46 152/85 11/07/18 21:00 Room Air 11/07/18 20:42 84 152/85 11/07/18 20:00 98.0 84 20 152/85 (107) 100 11/07/18 20:00 79 Intake and Output 11/07/18 11/08/18 19:00 07:00 Intake Total 1860 ml 1155 ml Balance 1860 ml 1155 ml Intake Oral 960 ml 480 ml IV Total 900 ml 675 ml # Voids 2 1 Laboratory Tests 11/08/18 06:55: White Blood Count 3.6L, Red Blood Count 3.02L, Hemoglobin 10.0L, Hematocrit 29.9L, Mean Corpuscular Volume 99, Mean Corpuscular Hemoglobin 33.0H, Mean Corpuscular Hemoglobin Concent 33.4, Red Cell Distribution Width 13.3, Platelet Count 128L, Mean Platelet Volume 8.6, Neutrophils (%) (Auto) 37.3L, Lymphocytes (%) (Auto) 51.5H, Monocytes (%) (Auto) 8.2, Eosinophils (%) (Auto) 0.9, Basophils (%) (Auto) 2.2H Height (Feet): 5 Height (Inches): 6.00 Weight (Pounds): 140 General Appearance: WD/WN, no apparent distress, alert EENT: PERRL/EOMI, normal ENT inspection Neck: non-tender, normal alignment Cardiovascular: normal rate, regular rhythm, no JVD Respiratory/Chest: lungs clear Abdomen: normal bowel sounds, non tender Extremities: moderate edema Neurologic: 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
[2018-11-09] VITALS: BP 137/75
--- NOTE | 2018-11-09 03:15 | Progress Note ---
DATE: 11/05/2018 CARDIOLOGY PROGRESS NOTE SUBJECTIVE: The patient continues to have some hematuria, but no recurring rectal bleeding. She is off anticoagulation. Venous duplex scan was positive for acute on chronic DVT. OBJECTIVE: VITAL SIGNS: Blood pressure 124/63, pulse 77, respiratory rate 17, afebrile. LUNGS: Clear. CARDIAC: Regular. Normal S1 and S2 with a fourth heart sound. Pacemaker pocket site clean and dry. ABDOMEN: Soft. Kidney transplant site stable with no tenderness. EXTREMITIES: With amputation site clean and dry. LABORATORY DATA: White count 3.3, hemoglobin 11.9. Urinalysis with too numerous to count white cells and many yeasts. Potassium 3.2. IMPRESSION: 1. Acute DVT. 2. Hematuria. 3. History of rectal bleeding. 4. Permanent pacemaker. 5. Cystitis. 6. Sepsis. 7. Toxic and metabolic encephalopathy. 8. Hypertensive heart disease. 9. Peripheral artery disease with prior amputation. 10. Acute on chronic DVT of lower extremities. PLAN: 1. We will need to consider a safety and effectiveness of an IVC filter in the setting of a prior renal transplant. 2. Hold anticoagulation for now. 3. Continue antimicrobials. 4. Pacemaker interrogation to follow. Matthew Tinajero M.D. DR: JESUS JOB#: [id number] CC:
--- NOTE | 2018-11-09 03:45 | Progress Note ---
DATE: 11/08/2018 CARDIOLOGY PROGRESS NOTE SUBJECTIVE: Pacemaker interrogation completed with revealing appropriate function and adequate battery life. The patient remains off anticoagulation. No new bleeding. OBJECTIVE: VITAL SIGNS: Blood pressure 140/78, pulse 70, respiratory rate 20, no fevers. LUNGS: Clear. CARDIAC: Regular with normal S1 and S2 and a fourth heart sound. Pacemaker pocket site clean and dry. ABDOMEN: Soft. Kidney transplant site with no focal tenderness. EXTREMITIES: Without change in stump site. LABORATORY DATA: White count 3.6, hemoglobin 10. Urine culture with yeast. IMPRESSION: 1. Acute on chronic DVT. 2. Recurrent bleeding from GI and tracts. 3. Metabolic and toxic encephalopathy. 4. Sepsis. 5. Fungal cystitis. 6. Permanent pacemaker. 7. Hypertensive heart disease. 8. Peripheral artery disease with amputations and right foot ischemia. PLAN: 1. Await vascular studies. 2. Continue antimicrobials. 3. Monitor cardiorenal parameters. 4. Hold anticoagulation. 5. Reassess for IVC filter versus resuming anticoagulation. Matthew Tinajero M.D. DR: JESUS JOB#: [id number] CC:
[2018-11-09 04:00] VITALS: BP 138/82
[2018-11-09] MEDS: HydrALAZINE 25mg tab ORAL SCH ×3 (05:55→22:07)
--- NOTE | 2018-11-09 07:58 | Urology Progress Note ---
Assessment/Plan Assessment/Plan 1. Hematuria. 2. UTI. 3. Proteinuria. 4. Urinary frequency. 5. Possible neurogenic bladder. 6. Cystitis history. 7. Atrophy of [place] kidneys. 8. Renal cysts. 9. 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 monitor clinically abx as ordered diflucan added cysto later Subjective Allergies: Coded Allergies: No Known Allergies (Verified , 05/29/09) Subjective all noted, feels fair, urine "brownish" by report Objective Last 24 Hour Vital Signs Date Time Temp Pulse Resp B/P (MAP) Pulse Ox O2 Delivery O2 Flow Rate FiO2 11/09/18 05:55 138/82 11/09/18 04:00 71 11/09/18 04:00 97.5 87 20 138/82 (100) 97 11/09/18 00:00 74 11/09/18 00:00 97.9 75 20 137/75 (95) 98 11/08/18 23:44 74 11/08/18 22:51 140/73 11/08/18 22:46 80 140/73 (95) 11/08/18 21:02 83 114/66 11/08/18 21:00 Room Air 11/08/18 20:00 98.8 104 20 114/66 (82) 95 11/08/18 20:00 83 11/08/18 19:06 83 11/08/18 19:01 97.5 11/08/18 16:00 74 11/08/18 16:00 97.5 74 20 139/67 (91) 97 11/08/18 15:09 152/85 11/08/18 12:00 97.0 91 20 152/85 (107) 99 11/08/18 12:00 79 11/08/18 09:08 85 126/71 11/08/18 09:08 85 126/71 11/08/18 09:00 Room Air 11/08/18 08:00 80 11/08/18 08:00 98.3 85 21 126/71 (89) 99 Intake and Output 11/08/18 11/09/18 19:00 07:00 Intake Total 75 ml 900 ml Balance 75 ml 900 ml IV Total 75 ml 900 ml # Voids 4 Microbiology Date/Time Source Procedure Growth Status 11/06/18 16:45 Stool Clostridium difficile Toxin Assay - Final Complete 11/07/18 16:27 Urine,Clean Catch Urine Culture - Preliminary Resulted Current Medications Medications (Trade) Dose Ordered Sig/Toya Route PRN Reason Start Time Stop Time Status Last Admin Dose Admin Acetaminophen (Tylenol) 500 mg Q4H PRN ORAL Mild Pain/Temp > 100.5 11/03/18 21:00 12/03/18 20:59 11/07/18 13:48 Acetaminophen/ Hydrocodone Bitart ([place] 10/325) 1 tab DAILY ORAL 11/04/18 09:00 11/11/18 08:59 11/07/18 08:06 Amlodipine Besylate (Norvasc) 5 mg DAILY ORAL 11/04/18 09:00 12/04/18 08:59 11/08/18 09:08 Azathioprine (Imuran) 75 mg DAILY ORAL 11/04/18 09:00 12/04/18 08:59 11/08/18 09:07 Carvedilol (Coreg) 3.125 mg EVERY 12 HOURS ORAL 11/03/18 21:00 12/03/18 20:59 11/08/18 21:02 Cyclosporine (SandIMMUNE) 100 mg BID ORAL 11/04/18 09:00 12/04/18 08:59 11/08/18 18:30 Dextrose/Sodium Chloride 1,000 ml @ 75 mls/hr [id number] IV 11/03/18 21:00 12/03/18 20:59 11/08/18 21:02 Fluconazole (Diflucan) 100 mg DAILY ORAL 11/08/18 11:03 11/15/18 11:02 11/08/18 11:38 Fludrocortisone Acetate (Florinef) 0.1 mg DAILY ORAL 11/04/18 09:00 12/04/18 08:59 11/08/18 09:08 Hydralazine HCl (Apresoline) 25 mg EVERY 8 HOURS ORAL 11/03/18 22:00 12/03/18 21:59 11/09/18 05:55 Levofloxacin (Levaquin) 500 mg Q24H ORAL 11/05/18 18:00 11/12/18 17:59 11/08/18 18:30 Loperamide HCl (Imodium) 2 mg Q4H PRN ORAL Diarrhea 11/08/18 16:00 12/08/18 15:59 Mirtazapine (Remeron) 15 mg BEDTIME ORAL 11/03/18 21:00 12/03/18 20:59 11/08/18 21:03 Ondansetron HCl (Zofran) 4 mg Q6H PRN IVP Nausea & Vomiting 11/03/18 21:00 12/03/18 20:59 Oxycodone/ Acetaminophen (Percocet 10/325) 1 tab Q4H PRN ORAL Severe Pain (Pain Scale 7-10) 11/03/18 21:00 11/10/18 20:59 11/09/18 05:56 Pantoprazole (Protonix) 40 mg DAILY ORAL 11/04/18 09:00 12/04/18 08:59 11/08/18 09:08 Rivaroxaban (Xarelto) 10 mg DAILY ORAL 11/08/18 09:00 12/08/18 08:59 11/08/18 09:07 Temazepam (Restoril) 15 mg HSPRN PRN ORAL Insomnia 11/04/18 21:00 11/11/18 20:59 11/08/18 22:51 Height (Feet): 5 Height (Inches): 6.00 Weight (Pounds): 140 Objective exam stable renal u/s done, result noted, no hydro in transplant kidney Andrés Guillory MD Nov 09, 2018 07:58
[2018-11-09 08:00] VITALS: BP 129/72
--- NOTE | 2018-11-09 08:16 | General Progress Note ---
Assessment/Plan Problem List: (1) Diarrhea ICD Codes: R19.7 - Diarrhea SNOMED: 29428191 (2) UTI (urinary tract infection) ICD Codes: N39.0 - Urinary tract infection, site not specified SNOMED: 34152611 (3) Encephalopathy acute ICD Codes: G93.40 - Encephalopathy acute SNOMED: 9502670 (4) DVT (deep venous thrombosis) ICD Codes: I82.409 - Acute embolism and thrombosis of unspecified deep veins of unspecified lower extremity SNOMED: 091637828 (5) Acute GI bleeding ICD Codes: K92.2 - Gastrointestinal hemorrhage, unspecified SNOMED: 35022167 (6) Failure to thrive in adult ICD Codes: R62.7 - Adult failure to thrive SNOMED: 915894584 Status: stable Assessment/Plan iv abx PPI rx resume xarelto follow up cultures ?ivc filter- considered previously but deferred because of concern of damage( from thrombosis) to transplanted kidney monitor labs vascular studies mri right foot- r/o osteo Subjective ROS Limited/Unobtainable: No Constitutional: Reports: malaise, weakness HEENT: Reports: no symptoms Cardiovascular: Reports: no symptoms Respiratory: Reports: no symptoms Gastrointestinal/Abdominal: Reports: no symptoms Genitourinary: Reports: no symptoms Neurologic/Psychiatric: Reports: no symptoms Endocrine: Reports: no symptoms Hematologic/Lymphatic: Reports: no symptoms Allergies: Coded Allergies: No Known Allergies (Verified , 05/29/09) All Systems: reviewed and negative except above Subjective no melena or brbpr. no hematuria. venous duplex with acute dvt and chronic. pain controlled. no fever or chills. right foot pain back on xarelto. no signs of bleeding Objective Last 24 Hour Vital Signs Date Time Temp Pulse Resp B/P (MAP) Pulse Ox O2 Delivery O2 Flow Rate FiO2 11/09/18 05:55 138/82 11/09/18 04:00 71 11/09/18 04:00 97.5 87 20 138/82 (100) 97 11/09/18 00:00 74 11/09/18 00:00 97.9 75 20 137/75 (95) 98 11/08/18 23:44 74 11/08/18 22:51 140/73 11/08/18 22:46 80 140/73 (95) 11/08/18 21:02 83 114/66 11/08/18 21:00 Room Air 11/08/18 20:00 98.8 104 20 114/66 (82) 95 11/08/18 20:00 83 11/08/18 19:06 83 11/08/18 19:01 97.5 11/08/18 16:00 74 11/08/18 16:00 97.5 74 20 139/67 (91) 97 11/08/18 15:09 152/85 11/08/18 12:00 97.0 91 20 152/85 (107) 99 11/08/18 12:00 79 11/08/18 09:08 85 126/71 11/08/18 09:08 85 126/71 11/08/18 09:00 Room Air Intake and Output 11/08/18 11/09/18 19:00 07:00 Intake Total 75 ml 900 ml Balance 75 ml 900 ml IV Total 75 ml 900 ml # Voids 4 Height (Feet): 5 Height (Inches): 6.00 Weight (Pounds): 140 Objective General Appearance: WD/WN, alert Neck: supple Cardiovascular: normal peripheral pulses, normal rate, regular rhythm Respiratory/Chest: chest wall non-tender, lungs clear, normal breath sounds, no respiratory distress Abdomen: normal bowel sounds, non tender, soft, no organomegaly Edema: no edema noted Arm (L), no edema noted Arm (R), no edema noted Leg (L), no edema noted Leg (R), no edema noted Pedal (L), no edema noted Pedal (R), no edema noted Generalized John Red MD Nov 09, 2018 08:16
[2018-11-09 08:41] LABS: BASOPHILS % (AUTO) 0.8 % (0.0-2.0); EOSINOPHILS % (AUTO) 0.5 % (0.0-3.0); HEMOGLOBIN 9.4 G/DL (12.0-16.0); LYMPHOCYTES % (AUTO) 35.5 % (20.0-45.0); MEAN CORPUSCULAR VOLUME 101 FL (80-99); NEUTROPHILS % (AUTO) 55.2 % (45.0-75.0); PLATELET COUNT 141 K/UL (150-450); RED BLOOD COUNT 2.87 M/UL (4.20-5.40); RED CELL DISTRIBUTION WIDTH 13.6 % (11.6-14.8); WHITE BLOOD COUNT 4.9 K/UL (4.8-10.8)
[2018-11-09] MEDS: azaTHIOprine 50 MG TAB ORAL SCH (08:46)
[2018-11-09] MEDS: Fluconazole 100mg tab ORAL SCH (08:46)
[2018-11-09] MEDS: cycloSPORINE 100mg cap ORAL SCH ×2 (08:46→17:10)
[2018-11-09] MEDS: HYDROcodone/Acetamin 10/325 tab ORAL SCH (08:47)
[2018-11-09] MEDS: Xarelto 10mg tab ORAL SCH (08:48)
[2018-11-09 09:54] LABS: ALANINE AMINOTRANSFERASE 9 U/L (12-78); ALBUMIN 2.7 G/DL (3.4-5.0); ALBUMIN/GLOBULIN RATIO 0.7 (1.0-2.7); ALKALINE PHOSPHATASE 73 U/L (46-116); ANION GAP 9 mmol/L (5-15); ASPARTATE AMINO TRANSFERASE 16 U/L (15-37); BILIRUBIN,TOTAL 0.4 MG/DL (0.2-1.0); BLOOD UREA NITROGEN 5 mg/dL (7-18); CALCIUM 8.3 MG/DL (8.5-10.1); CARBON DIOXIDE 24 MMOL/L (21-32); CHLORIDE 108 MMOL/L (98-107); CREATININE 0.9 MG/DL (0.55-1.30); PHOSPHORUS 3.2 MG/DL (2.5-4.9); POTASSIUM 3.7 MMOL/L (3.5-5.1); SODIUM 141 MMOL/L (136-145)
[2018-11-09] MEDS: D5 1/2NS 1,000 ML IV SCH ×2 (09:56→23:48)
--- NOTE | 2018-11-09 10:08 | Infectious Diseases Prog Note ---
"Assessment/Plan Assessment/Plan antibiotics : po levoquin, fluconazole A 1. E. Coli | fungal urinary tract infection 2. History of peripheral vascular disease. 3. History of kidney transplant. P 1. d/c po levoquin 2. continue po fluconazole 5 more days 3. will follow up cultures Subjective Constitutional: Denies: fever, chills Respiratory: Denies: shortness of breath, dry cough Gastrointestinal/Abdominal: Denies: nausea, vomiting, diarrhea Musculoskeletal: Reports: pain - decreased in left foot Allergies: Coded Allergies: No Known Allergies (Verified , 05/29/09) Objective Vital Signs Last 24 Hour Vital Signs Date Time Temp Pulse Resp B/P (MAP) Pulse Ox O2 Delivery O2 Flow Rate FiO2 11/09/18 09:17 97.5 11/09/18 09:00 Room Air 11/09/18 08:47 80 129/72 11/09/18 08:45 80 129/72 11/09/18 08:00 97.4 80 18 129/72 (91) 99 11/09/18 08:00 74 11/09/18 05:55 138/82 11/09/18 04:00 71 11/09/18 04:00 97.5 87 20 138/82 (100) 97 11/09/18 00:00 74 11/09/18 00:00 97.9 75 20 137/75 (95) 98 11/08/18 23:44 74 11/08/18 22:51 140/73 11/08/18 22:46 80 140/73 (95) 11/08/18 21:02 83 114/66 11/08/18 21:00 Room Air 11/08/18 20:00 98.8 104 20 114/66 (82) 95 11/08/18 20:00 83 11/08/18 19:06 83 11/08/18 19:01 97.5 11/08/18 16:00 74 11/08/18 16:00 97.5 74 20 139/67 (91) 97 11/08/18 15:09 152/85 11/08/18 12:00 97.0 91 20 152/85 (107) 99 11/08/18 12:00 79 Height (Feet): 5 Height (Inches): 6.00 Weight (Pounds): 140 Microbiology Date/Time Source Procedure Growth Status 11/06/18 16:45 Stool Clostridium difficile Toxin Assay - Final Complete 11/07/18 16:27 Urine,Clean Catch Urine Culture - Preliminary Resulted Laboratory Tests Test 11/09/18 08:00 White Blood Count 4.9 K/UL (4.8-10.8) Red Blood Count 2.87 M/UL (4.20-5.40) L Hemoglobin 9.4 G/DL (12.0-16.0) L Hematocrit 29.0 % (37.0-47.0) L Mean Corpuscular Volume 101 FL (80-99) H Mean Corpuscular Hemoglobin 32.9 PG (27.0-31.0) H Mean Corpuscular Hemoglobin Concent 32.6 G/DL (32.0-36.0) Red Cell Distribution Width 13.6 % (11.6-14.8) Platelet Count 141 K/UL (150-450) L Mean Platelet Volume 8.8 FL (6.5-10.1) Neutrophils (%) (Auto) 55.2 % (45.0-75.0) Lymphocytes (%) (Auto) 35.5 % (20.0-45.0) Monocytes (%) (Auto) 8.0 % (1.0-10.0) Eosinophils (%) (Auto) 0.5 % (0.0-3.0) Basophils (%) (Auto) 0.8 % (0.0-2.0) Sodium Level 141 MMOL/L (136-145) Potassium Level 3.7 MMOL/L (3.5-5.1) Chloride Level 108 MMOL/L (98-107) H Carbon Dioxide Level 24 MMOL/L (21-32) Anion Gap 9 mmol/L (5-15) Blood Urea Nitrogen 5 mg/dL (7-18) L Creatinine 0.9 MG/DL (0.55-1.30) Estimat Glomerular Filtration Rate mL/min (>60) Glucose Level 125 MG/DL (74-106) H Calcium Level 8.3 MG/DL (8.5-10.1) L Phosphorus Level 3.2 MG/DL (2.5-4.9) Magnesium Level 1.4 MG/DL (1.8-2.4) L Total Bilirubin 0.4 MG/DL (0.2-1.0) Aspartate Amino Transf (AST/SGOT) 16 U/L (15-37) Alanine Aminotransferase (ALT/SGPT) 9 U/L (12-78) L Alkaline Phosphatase 73 U/L (46-116) Total Protein 6.6 G/DL (6.4-8.2) Albumin 2.7 G/DL (3.4-5.0) L Globulin 3.9 g/dL Albumin/Globulin Ratio 0.7 (1.0-2.7) L Current Medications Medications (Trade) Dose Ordered Sig/Toya Route PRN Reason Start Time Stop Time Status Last Admin Dose Admin Acetaminophen (Tylenol) 500 mg Q4H PRN ORAL Mild Pain/Temp > 100.5 11/03/18 21:00 12/03/18 20:59 11/07/18 13:48 Acetaminophen/ Hydrocodone Bitart ([place] 10/325) 1 tab DAILY ORAL 11/04/18 09:00 11/11/18 08:59 11/09/18 08:47 Amlodipine Besylate (Norvasc) 5 mg DAILY ORAL 11/04/18 09:00 12/04/18 08:59 11/09/18 08:47 Azathioprine (Imuran) 75 mg DAILY ORAL 11/04/18 09:00 12/04/18 08:59 11/09/18 08:46 Carvedilol (Coreg) 3.125 mg EVERY 12 HOURS ORAL 11/03/18 21:00 12/03/18 20:59 11/09/18 08:45 Cyclosporine (SandIMMUNE) 100 mg BID ORAL 11/04/18 09:00 12/04/18 08:59 11/09/18 08:46 Dextrose/Sodium Chloride 1,000 ml @ 75 mls/hr [id number] IV 11/03/18 21:00 12/03/18 20:59 11/09/18 09:56 Fluconazole (Diflucan) 100 mg DAILY ORAL 11/08/18 11:03 11/15/18 11:02 11/09/18 08:46 Fludrocortisone Acetate (Florinef) 0.1 mg DAILY ORAL 11/04/18 09:00 12/04/18 08:59 11/09/18 08:47 Hydralazine HCl (Apresoline) 25 mg EVERY 8 HOURS ORAL 11/03/18 22:00 12/03/18 21:59 11/09/18 05:55 Levofloxacin (Levaquin) 500 mg Q24H ORAL 11/05/18 18:00 11/12/18 17:59 11/08/18 18:30 Loperamide HCl (Imodium) 2 mg Q4H PRN ORAL Diarrhea 11/08/18 16:00 12/08/18 15:59 Mirtazapine (Remeron) 15 mg BEDTIME ORAL 11/03/18 21:00 12/03/18 20:59 11/08/18 21:03 Ondansetron HCl (Zofran) 4 mg Q6H PRN IVP Nausea & Vomiting 11/03/18 21:00 12/03/18 20:59 Oxycodone/ Acetaminophen (Percocet 10/325) 1 tab Q4H PRN ORAL Severe Pain (Pain Scale 7-10) 11/03/18 21:00 11/10/18 20:59 11/09/18 05:56 Pantoprazole (Protonix) 40 mg DAILY ORAL 11/04/18 09:00 12/04/18 08:59 11/09/18 08:47 Rivaroxaban (Xarelto) 10 mg DAILY ORAL 11/08/18 09:00 12/08/18 08:59 11/09/18 08:48 Temazepam (Restoril) 15 mg HSPRN PRN ORAL Insomnia 11/04/18 21:00 11/11/18 20:59 11/08/18 22:51 Nikki Bob MD Nov 09, 2018 10:08"
[2018-11-09 12:00] VITALS: BP 119/60
--- NOTE | 2018-11-09 12:47 | Podiatric Progress Note ---
Assessment/Plan Patient Jazzmine Jones is a 78 year old female who was admitted on Nov 03, 2018 at 18 :25 with Problems: (1) Peripheral vascular disease Assessment/Plan patient does not have an active infection. vascular clearance must be obtained prior to any foot procedure due to her calcified vessels. Patient can be discharged and followed as an outpatient. Subjective Allergies: Coded Allergies: No Known Allergies (Verified , 05/29/09) Subjective Patient is seen by bedside f/u L big toe and second toe pain. Patient has been seen by Dr. Sumner. xray is negative for osteo. xray shows multiple calcified vessels to the foot. patient has pain and wound like to surgically amputate the toes. Objective Exam Last 24 Hour Vital Signs Date Time Temp Pulse Resp B/P (MAP) Pulse Ox O2 Delivery O2 Flow Rate FiO2 11/09/18 09:17 97.5 11/09/18 09:00 Room Air 11/09/18 08:47 80 129/72 11/09/18 08:45 80 129/72 11/09/18 08:00 97.4 80 18 129/72 (91) 99 11/09/18 08:00 74 11/09/18 05:55 138/82 11/09/18 04:00 71 11/09/18 04:00 97.5 87 20 138/82 (100) 97 11/09/18 00:00 74 11/09/18 00:00 97.9 75 20 137/75 (95) 98 11/08/18 23:44 74 11/08/18 22:51 140/73 11/08/18 22:46 80 140/73 (95) 11/08/18 21:02 83 114/66 11/08/18 21:00 Room Air 11/08/18 20:00 98.8 104 20 114/66 (82) 95 11/08/18 20:00 83 11/08/18 19:06 83 11/08/18 19:01 97.5 11/08/18 16:00 74 11/08/18 16:00 97.5 74 20 139/67 (91) 97 11/08/18 15:09 152/85 Laboratory Tests Test 11/09/18 08:00 White Blood Count 4.9 K/UL (4.8-10.8) Red Blood Count 2.87 M/UL (4.20-5.40) L Hemoglobin 9.4 G/DL (12.0-16.0) L Hematocrit 29.0 % (37.0-47.0) L Mean Corpuscular Volume 101 FL (80-99) H Mean Corpuscular Hemoglobin 32.9 PG (27.0-31.0) H Mean Corpuscular Hemoglobin Concent 32.6 G/DL (32.0-36.0) Red Cell Distribution Width 13.6 % (11.6-14.8) Platelet Count 141 K/UL (150-450) L Mean Platelet Volume 8.8 FL (6.5-10.1) Neutrophils (%) (Auto) 55.2 % (45.0-75.0) Lymphocytes (%) (Auto) 35.5 % (20.0-45.0) Monocytes (%) (Auto) 8.0 % (1.0-10.0) Eosinophils (%) (Auto) 0.5 % (0.0-3.0) Basophils (%) (Auto) 0.8 % (0.0-2.0) Sodium Level 141 MMOL/L (136-145) Potassium Level 3.7 MMOL/L (3.5-5.1) Chloride Level 108 MMOL/L (98-107) H Carbon Dioxide Level 24 MMOL/L (21-32) Anion Gap 9 mmol/L (5-15) Blood Urea Nitrogen 5 mg/dL (7-18) L Creatinine 0.9 MG/DL (0.55-1.30) Estimat Glomerular Filtration Rate mL/min (>60) Glucose Level 125 MG/DL (74-106) H Calcium Level 8.3 MG/DL (8.5-10.1) L Phosphorus Level 3.2 MG/DL (2.5-4.9) Magnesium Level 1.4 MG/DL (1.8-2.4) L Total Bilirubin 0.4 MG/DL (0.2-1.0) Aspartate Amino Transf (AST/SGOT) 16 U/L (15-37) Alanine Aminotransferase (ALT/SGPT) 9 U/L (12-78) L Alkaline Phosphatase 73 U/L (46-116) Total Protein 6.6 G/DL (6.4-8.2) Albumin 2.7 G/DL (3.4-5.0) L Globulin 3.9 g/dL Albumin/Globulin Ratio 0.7 (1.0-2.7) L Microbiology Date/Time Source Procedure Growth Status 11/06/18 16:45 Stool Clostridium difficile Toxin Assay - Final Complete 11/07/18 16:27 Urine,Clean Catch Urine Culture - Preliminary Resulted Vascular Edema: 1+ (<2mm) foot (L), 1+ (<2mm) foot (R) Dermatological Dermatological Narrative R aka noted L tip 1st and 2nd noted superficial ulceration to dermal layer. no discharge or drainage is seen. L hallux toe is slightly swollen and hyperpigmented. Matthew Francis DPM Nov 09, 2018 12:47
--- NOTE | 2018-11-09 14:19 | Diagnostic Imaging Report ---
APPROVED REPORT CPT Code: 15185 Symptoms PAD Comments: Hx of Bilateral groin Dialysis graft Comments Hx of left leg femoral to tibial bipass graft Hx of Blood clot Below the knee amputation (right leg) TDS due to pain Velocity(cm/s)WaveformVelocity(cm/s)Waveform Tanana Bftset31Roippaxe Prox Xefgp17Rurmhqgj Prox Dbbts11Qurptuqu Prox/Mid Lfzfd01Fgkxprdo Mid Toitj18Amkmzmqw Dist Jofqb87Loluxbjc Tanana Xffsxl90Zgwjvvdyyt RIGHT LEG: Color flow duplex sonography reveals patency of the common femoral artery and proximal superficial femoral artery. Imaging also reveals an occlusion in the mid superficial femoral artery. Reconstitution is noted at the distal superficial femoral artery. The popliteal artery is patent. The tibioperoneal trunk was not well visualized. The tibial arteries were not evaluated due to below the knee amputation. LEFT LEG: Color flow sonography revealed a patent femoral to posterior tibial saphenous vein bypass graft. There is no significant stenosis or occlusion within this segment. The dorsalis pedis artery is patent. A segment of the anterior tibial artery was, patent at the proximal level, remaining segment was not well visualized, due to possible occlusion. Doppler waveform analysis is monophasic from posterior tibial artery, which is consistent with severe ischemia at rest. Note: There are nonfunctioning bilateral Dialysis graft at the groin area visualized. KEN Jones was notified of abnormal results at 1200 hours.
--- NOTE | 2018-11-09 14:23 | Diagnostic Imaging Report ---
APPROVED REPORT CPT Code: 92773 Present Symptoms Comments: COPD Hx of clot and DVT Left leg greater saphenous vein graft Below the knee amputation RIGHT LEG: Venous imaging reveals recanalized chronic thrombus in the common femoral to popliteal veins. LEFT LEG: Venous imaging reveals acute thrombus in the proximal superficial femoral vein. Imaging also reveals chronic thrombus in the common femoral, popliteal and calf veins. KEN Styles was notified of abnormal results at 0845 hours.
--- NOTE | 2018-11-09 14:39 | GI Progress Note ---
Assessment/Plan Problems: (1) Failure to thrive in adult ICD Codes: R62.7 - Adult failure to thrive SNOMED: 494109212 (2) Acute GI bleeding ICD Codes: K92.2 - Gastrointestinal hemorrhage, unspecified SNOMED: 66752551 (3) Diarrhea ICD Codes: R19.7 - Diarrhea SNOMED: 51532814 (4) GIB (gastrointestinal bleeding) ICD Codes: K92.2 - Gastrointestinal hemorrhage, unspecified SNOMED: 04099712 (5) Abdominal pain ICD Codes: R10.9 - Abdominal pain SNOMED: 90791139 (6) Phantom limb pain ICD Codes: G54.6 - Phantom limb syndrome with pain SNOMED: 0920270501449 (7) Dehydration ICD Codes: E86.0 - Dehydration SNOMED: 43946081 (8) Colitis ICD Codes: K52.9 - Colitis SNOMED: 229928847 Status: stable, unchanged Status Narrative Discussed with Dr. Cannon Assessment/Plan Assessment - rectal bleeding (no blood or melena on rectal exam) vs just gross hematuria. OB stool negative. - patient declines to take GI preparation for colonoscopy or laxative to obtain BM - Anemia, ? hematologic basis (macrocytic) - s/p renal transplant, now with blood clots in urine - PVD, s/p amputations - C. difficile negative - stable H&H Recommendations - Tolerating solids p.o. - monitor for further rectal bleeding - Agree with holding Xarelto - Urology consult appreciated - no plans for GI w/u at this time since patient refused laxatives. -Imodium as needed Follow-up labs The patient was seen and examined at bedside and all new and available data was reviewed in the patients chart. I agree with the above findings, impression and plan. (Patient seen earlier today. Signature stamp does not reflect patient encounter time.). - Fermin Cannon MD Subjective Subjective Denies any abdominal pain today Complaint of lower extremity pain Objective Last 24 Hour Vital Signs Date Time Temp Pulse Resp B/P (MAP) Pulse Ox O2 Delivery O2 Flow Rate FiO2 11/09/18 14:02 119/60 11/09/18 09:17 97.5 11/09/18 09:00 Room Air 11/09/18 08:47 80 129/72 11/09/18 08:45 80 129/72 11/09/18 08:00 97.4 80 18 129/72 (91) 99 11/09/18 08:00 74 11/09/18 05:55 138/82 11/09/18 04:00 71 11/09/18 04:00 97.5 87 20 138/82 (100) 97 11/09/18 00:00 74 11/09/18 00:00 97.9 75 20 137/75 (95) 98 11/08/18 23:44 74 11/08/18 22:51 140/73 11/08/18 22:46 80 140/73 (95) 11/08/18 21:02 83 114/66 11/08/18 21:00 Room Air 11/08/18 20:00 98.8 104 20 114/66 (82) 95 11/08/18 20:00 83 11/08/18 19:06 83 11/08/18 19:01 97.5 11/08/18 16:00 74 11/08/18 16:00 97.5 74 20 139/67 (91) 97 11/08/18 15:09 152/85 Intake and Output 11/08/18 11/09/18 19:00 07:00 Intake Total 75 ml 900 ml Balance 75 ml 900 ml IV Total 75 ml 900 ml # Voids 4 Laboratory Tests Test 11/09/18 08:00 White Blood Count 4.9 K/UL (4.8-10.8) Red Blood Count 2.87 M/UL (4.20-5.40) L Hemoglobin 9.4 G/DL (12.0-16.0) L Hematocrit 29.0 % (37.0-47.0) L Mean Corpuscular Volume 101 FL (80-99) H Mean Corpuscular Hemoglobin 32.9 PG (27.0-31.0) H Mean Corpuscular Hemoglobin Concent 32.6 G/DL (32.0-36.0) Red Cell Distribution Width 13.6 % (11.6-14.8) Platelet Count 141 K/UL (150-450) L Mean Platelet Volume 8.8 FL (6.5-10.1) Neutrophils (%) (Auto) 55.2 % (45.0-75.0) Lymphocytes (%) (Auto) 35.5 % (20.0-45.0) Monocytes (%) (Auto) 8.0 % (1.0-10.0) Eosinophils (%) (Auto) 0.5 % (0.0-3.0) Basophils (%) (Auto) 0.8 % (0.0-2.0) Sodium Level 141 MMOL/L (136-145) Potassium Level 3.7 MMOL/L (3.5-5.1) Chloride Level 108 MMOL/L (98-107) H Carbon Dioxide Level 24 MMOL/L (21-32) Anion Gap 9 mmol/L (5-15) Blood Urea Nitrogen 5 mg/dL (7-18) L Creatinine 0.9 MG/DL (0.55-1.30) Estimat Glomerular Filtration Rate mL/min (>60) Glucose Level 125 MG/DL (74-106) H Calcium Level 8.3 MG/DL (8.5-10.1) L Phosphorus Level 3.2 MG/DL (2.5-4.9) Magnesium Level 1.4 MG/DL (1.8-2.4) L Total Bilirubin 0.4 MG/DL (0.2-1.0) Aspartate Amino Transf (AST/SGOT) 16 U/L (15-37) Alanine Aminotransferase (ALT/SGPT) 9 U/L (12-78) L Alkaline Phosphatase 73 U/L (46-116) Total Protein 6.6 G/DL (6.4-8.2) Albumin 2.7 G/DL (3.4-5.0) L Globulin 3.9 g/dL Albumin/Globulin Ratio 0.7 (1.0-2.7) L Height (Feet): 5 Height (Inches): 6.00 Weight (Pounds): 140 General Appearance: WD/WN, no apparent distress, alert Cardiovascular: normal rate Respiratory/Chest: normal breath sounds, no respiratory distress Abdominal Exam: normal bowel sounds, non tender, soft Extremities: non-tender Saranya Ge NP Nov 09, 2018 14:39
--- NOTE | 2018-11-09 15:18 | Diagnostic Imaging Report ---
Indication: Acute infection of the left foot. Concern for osteomyelitis. Patient has a pacemaker Technique: Transaxial images of the left foot were obtained in a Siemens Sensation [address] scanner. Soft tissue and bone windows generated. 2-D reconstructions obtained. Automatic Exposure Control was utilized. Total Dose length Product (DLP): [address] Dose Index Volume (CTDIvol): 0.15, 0.15, 15.26 mGy Comparison: Plain x-ray 11/05/2018 Findings: No definite erosions are identified. There is no soft tissue gas. There is a moderate subcutaneous edema within the dorsum of the foot and over the area of the first metatarsal head and fifth metatarsal head, presumably cellulitis. An area of ulceration or skin breakdown, which may serve as a portal of entry for infection, is not definitely seen on the images obtained. This may be more evident clinically. That said, there is no CT evidence for acute osteomyelitis keeping in mind CT is much less sensitive than triple phase bone scan or MRI. The bones are moderately osteopenic. Scattered areas of a arthritic irregularity due to arthrosis is noted. There is partial fusion of the third and fourth metatarsal bases. Some vascular calcifications are noted. IMPRESSION: No definite evidence of acute osteomyelitis. Generalized subcutaneous edema of the foot nonspecific. Note: MRI and triple phase bone scan are more sensitive for acute osteomyelitis than plain film or CT. The CT scanner at [facility] is accredited by the [employer] and the scans are performed using dose optimization techniques as appropriate to a performed exam including Automatic Exposure control.
[2018-11-09 16:00] VITALS: BP 126/61
--- NOTE | 2018-11-09 19:01 | Nephrology Progress Note ---
Assessment/Plan Problem List: (1) Ischemia of extremity (2) Pyelonephritis (3) Hypomagnesemia (4) Kidney transplanted Plan continue rx uti as per ID, renal function stable so far, pain management Subjective Constitutional: Reports: weakness HEENT: Reports: no symptoms Genitourinary: Reports: burning Neurologic/Psychiatric: Reports: no symptoms Objective Objective Last 24 Hour Vital Signs Date Time Temp Pulse Resp B/P (MAP) Pulse Ox O2 Delivery O2 Flow Rate FiO2 11/09/18 16:00 97.4 69 18 126/61 (82) 97 11/09/18 16:00 76 11/09/18 14:32 97.5 11/09/18 14:02 119/60 11/09/18 12:00 71 11/09/18 12:00 97.4 84 20 119/60 (79) 98 11/09/18 09:17 97.5 11/09/18 09:00 Room Air 11/09/18 08:47 80 129/72 11/09/18 08:45 80 129/72 11/09/18 08:00 97.4 80 18 129/72 (91) 99 11/09/18 08:00 74 11/09/18 05:55 138/82 11/09/18 04:00 71 11/09/18 04:00 97.5 87 20 138/82 (100) 97 11/09/18 00:00 74 11/09/18 00:00 97.9 75 20 137/75 (95) 98 11/08/18 23:44 74 11/08/18 22:51 140/73 11/08/18 22:46 80 140/73 (95) 11/08/18 21:02 83 114/66 11/08/18 21:00 Room Air 11/08/18 20:00 98.8 104 20 114/66 (82) 95 11/08/18 20:00 83 11/08/18 19:06 83 Intake and Output 11/08/18 11/09/18 18:59 06:59 Intake Total 900 ml Balance 900 ml IV Total 900 ml # Voids 4 Laboratory Tests 11/09/18 08:00: White Blood Count 4.9, Red Blood Count 2.87L, Hemoglobin 9.4L, Hematocrit 29.0L , Mean Corpuscular Volume 101H, Mean Corpuscular Hemoglobin 32.9H, Mean Corpuscular Hemoglobin Concent 32.6, Red Cell Distribution Width 13.6, Platelet Count 141L, Mean Platelet Volume 8.8, Neutrophils (%) (Auto) 55.2, Lymphocytes ( %) (Auto) 35.5, Monocytes (%) (Auto) 8.0, Eosinophils (%) (Auto) 0.5, Basophils (%) (Auto) 0.8, Sodium Level 141, Potassium Level 3.7, Chloride Level 108H, Carbon Dioxide Level 24, Anion Gap 9, Blood Urea Nitrogen 5L, Creatinine 0.9, Estimat Glomerular Filtration Rate , Glucose Level 125H, Calcium Level 8.3L, Phosphorus Level 3.2, Magnesium Level 1.4L, Total Bilirubin 0.4, Aspartate Amino Transf (AST/SGOT) 16, Alanine Aminotransferase (ALT/SGPT) 9L, Alkaline Phosphatase 73, Total Protein 6.6, Albumin 2.7L, Globulin 3.9, Albumin/Globulin Ratio 0.7L Height (Feet): 5 Height (Inches): 6.00 Weight (Pounds): 140 General Appearance: no apparent distress, alert EENT: normal ENT inspection Neck: normal alignment Cardiovascular: normal rate Respiratory/Chest: lungs clear Abdomen: soft, tender, other - tender over transplant mild Extremities: other - hyperpigment L 1 toe Neurologic: console manager II-XII grossly normal Kade Cochran MD Nov 09, 2018 19:01
[2018-11-09 20:00] VITALS: BP 111/63
[2018-11-10] VITALS (7 sets, daily range): BP systolic 130–142; BP diastolic 58–75
[2018-11-10] MEDS: HydrALAZINE 25mg tab ORAL SCH ×4 (05:21→21:35)
[2018-11-10] MEDS ORDERED: DIFLUCAN100 MG ORAL (09:01)
[2018-11-10] MEDS ORDERED: XARELTO10 MG ORAL (09:01)
[2018-11-10] MEDS: Fluconazole 100mg tab ORAL SCH (09:36)
[2018-11-10] MEDS: azaTHIOprine 50 MG TAB ORAL SCH (09:36)
[2018-11-10] MEDS: HYDROcodone/Acetamin 10/325 tab ORAL SCH (09:37)
[2018-11-10] MEDS: Xarelto 10mg tab ORAL SCH (09:38)
[2018-11-10] MEDS: cycloSPORINE 100mg cap ORAL SCH ×2 (09:38→17:30)
--- NOTE | 2018-11-10 10:07 | Urology Progress Note ---
Assessment/Plan Assessment/Plan 1. Hematuria. 2. UTI. 3. Proteinuria. 4. Urinary frequency. 5. Possible neurogenic bladder. 6. Cystitis history. 7. Atrophy of [place] kidneys. 8. Renal cysts. 9. 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 monitor clinically abx as ordered diflucan added cysto later f/u on final urine cx Subjective Allergies: Coded Allergies: No Known Allergies (Verified , 05/29/09) Subjective all noted, feels fair, urine "brownish" by report Objective Last 24 Hour Vital Signs Date Time Temp Pulse Resp B/P (MAP) Pulse Ox O2 Delivery O2 Flow Rate FiO2 11/10/18 09:38 71 139/58 11/10/18 09:35 71 139/58 11/10/18 09:00 Room Air 11/10/18 08:00 98.2 71 18 139/58 (85) 97 11/10/18 05:21 139/71 11/10/18 04:00 72 11/10/18 04:00 97.2 85 19 130/70 (90) 95 11/10/18 00:00 78 11/10/18 00:00 97.9 82 18 142/69 (93) 98 11/09/18 22:07 142/63 11/09/18 22:07 75 142/63 11/09/18 21:00 Room Air 11/09/18 20:00 80 11/09/18 20:00 97.8 88 20 111/63 (79) 96 11/09/18 16:00 97.4 69 18 126/61 (82) 97 11/09/18 16:00 76 11/09/18 14:32 97.5 11/09/18 14:02 119/60 11/09/18 12:00 71 11/09/18 12:00 97.4 84 20 119/60 (79) 98 Intake and Output 11/09/18 11/10/18 19:00 07:00 Intake Total 360 ml 990 ml Balance 360 ml 990 ml Intake Oral 360 ml 240 ml IV Total 750 ml # Voids 3 1 # Bowel Movements 1 Microbiology Date/Time Source Procedure Growth Status 11/06/18 16:45 Stool Clostridium difficile Toxin Assay - Final Complete 11/07/18 16:27 Urine,Clean Catch Urine Culture - Preliminary Streptococcus Species Resulted Current Medications Medications (Trade) Dose Ordered Sig/Toya Route PRN Reason Start Time Stop Time Status Last Admin Dose Admin Acetaminophen (Tylenol) 500 mg Q4H PRN ORAL Mild Pain/Temp > 100.5 11/03/18 21:00 12/03/18 20:59 11/07/18 13:48 Acetaminophen/ Hydrocodone Bitart ([place] 10/325) 1 tab DAILY ORAL 11/04/18 09:00 11/11/18 08:59 11/10/18 09:37 Amlodipine Besylate (Norvasc) 5 mg DAILY ORAL 11/04/18 09:00 12/04/18 08:59 11/10/18 09:38 Azathioprine (Imuran) 75 mg DAILY ORAL 11/04/18 09:00 12/04/18 08:59 11/10/18 09:36 Carvedilol (Coreg) 3.125 mg EVERY 12 HOURS ORAL 11/03/18 21:00 12/03/18 20:59 11/10/18 09:35 Cyclosporine (SandIMMUNE) 100 mg BID ORAL 11/04/18 09:00 12/04/18 08:59 11/10/18 09:38 Dextrose/Sodium Chloride 1,000 ml @ 75 mls/hr [id number] IV 11/03/18 21:00 12/03/18 20:59 11/09/18 23:48 Fluconazole (Diflucan) 100 mg DAILY ORAL 11/08/18 11:03 11/15/18 11:02 11/10/18 09:36 Fludrocortisone Acetate (Florinef) 0.1 mg DAILY ORAL 11/04/18 09:00 12/04/18 08:59 11/10/18 09:37 Hydralazine HCl (Apresoline) 25 mg EVERY 8 HOURS ORAL 11/03/18 22:00 12/03/18 21:59 11/10/18 05:21 Loperamide HCl (Imodium) 2 mg Q4H PRN ORAL Diarrhea 11/08/18 16:00 12/08/18 15:59 Magnesium Sulfate 100 ml @ 100 mls/hr Q1H IVPB 11/10/18 09:00 11/10/18 10:59 11/10/18 09:51 Mirtazapine (Remeron) 15 mg BEDTIME ORAL 11/03/18 21:00 12/03/18 20:59 11/09/18 22:00 Ondansetron HCl (Zofran) 4 mg Q6H PRN IVP Nausea & Vomiting 11/03/18 21:00 12/03/18 20:59 Oxycodone/ Acetaminophen (Percocet 10/325) 1 tab Q4H PRN ORAL Severe Pain (Pain Scale 7-10) 11/03/18 21:00 11/10/18 20:59 11/09/18 14:02 Pantoprazole (Protonix) 40 mg DAILY ORAL 11/04/18 09:00 12/04/18 08:59 11/10/18 09:36 Rivaroxaban (Xarelto) 10 mg DAILY ORAL 11/08/18 09:00 12/08/18 08:59 11/10/18 09:38 Temazepam (Restoril) 15 mg HSPRN PRN ORAL Insomnia 11/04/18 21:00 11/11/18 20:59 11/08/18 22:51 Height (Feet): 5 Height (Inches): 6.00 Weight (Pounds): 140 Objective exam stable renal u/s done, result noted, no hydro in transplant kidney Andrés Guillory MD Nov 10, 2018 10:07
[2018-11-10 10:47] LABS: BASOPHILS % (AUTO) 1.2 % (0.0-2.0); EOSINOPHILS % (AUTO) 0.3 % (0.0-3.0); HEMATOCRIT 32.2 % (37.0-47.0); HEMOGLOBIN 10.4 G/DL (12.0-16.0); LYMPHOCYTES % (AUTO) 30.3 % (20.0-45.0); MEAN CORPUSCULAR VOLUME 100 FL (80-99); MONOCYTES % (AUTO) 6.1 % (1.0-10.0); PLATELET COUNT 154 K/UL (150-450); RED BLOOD COUNT 3.22 M/UL (4.20-5.40); RED CELL DISTRIBUTION WIDTH 13.6 % (11.6-14.8); WHITE BLOOD COUNT 4.2 K/UL (4.8-10.8)
[2018-11-10 10:57] LABS: ANION GAP 5 mmol/L (5-15); BLOOD UREA NITROGEN 4 mg/dL (7-18); CALCIUM 8.7 MG/DL (8.5-10.1); CARBON DIOXIDE 27 MMOL/L (21-32); CHLORIDE 109 MMOL/L (98-107); CREATININE 0.8 MG/DL (0.55-1.30); POTASSIUM 3.6 MMOL/L (3.5-5.1); SODIUM 141 MMOL/L (136-145)
--- NOTE | 2018-11-10 12:30 | Progress Note ---
DATE: 11/09/2018 CARDIOLOGY PROGRESS NOTE SUBJECTIVE: The patient with no congestion, no shortness of breath. OBJECTIVE: VITAL SIGNS: Blood pressure 126/61, pulse 69, respirations 18. LUNGS: Diminished breath sounds, no wheezing. HEART: Regular rhythm and rate. Normal S1, S2. ABDOMEN: Soft dry without drainage. LABORATORY DATA: White count 4.8, hemoglobin 9.4. Potassium 3.7, magnesium 1.4. Albumin . CAT scan of the foot reveals no definite osteomyelitis. IMPRESSION: 1. Cellulitis. 2. Possible osteomyelitis. 3. Peripheral artery disease. 4. Prior amputation. 5. Pacemaker. 6. Hypertensive heart disease. 7. Urinary tract infection with sepsis. 8. Hypomagnesemia. 9. History of renal transplant. PLAN: 1. Cannot do MRI with pacemaker. 2. Consider bone scan. 3. IV magnesium replacement. 4. Titrate antihypertensive. 5. Antimicrobials. Matthew Tinajero M.D. DR: ORLANDO JOB#: [id number] CC:
[2018-11-10] MEDS: D5 1/2NS 1,000 ML IV SCH ×2 (13:08→14:05)
[2018-11-10] MEDS: Acetaminophen 500mg (ES) tab ORAL PRN (13:08)
--- NOTE | 2018-11-10 13:33 | GI Progress Note ---
Assessment/Plan Problems: (1) Failure to thrive in adult ICD Codes: R62.7 - Adult failure to thrive SNOMED: 462850663 (2) Acute GI bleeding ICD Codes: K92.2 - Gastrointestinal hemorrhage, unspecified SNOMED: 42371959 (3) Diarrhea ICD Codes: R19.7 - Diarrhea SNOMED: 87755482 (4) GIB (gastrointestinal bleeding) ICD Codes: K92.2 - Gastrointestinal hemorrhage, unspecified SNOMED: 35456925 (5) Abdominal pain ICD Codes: R10.9 - Abdominal pain SNOMED: 01683311 (6) Phantom limb pain ICD Codes: G54.6 - Phantom limb syndrome with pain SNOMED: 4586532321804 (7) Dehydration ICD Codes: E86.0 - Dehydration SNOMED: 93358780 (8) Colitis ICD Codes: K52.9 - Colitis SNOMED: 005536289 Status: stable Status Narrative Discussed with Dr. Cannon Assessment/Plan Assessment - rectal bleeding (no blood or melena on rectal exam) vs just gross hematuria. OB stool negative. - patient declines to take GI preparation for colonoscopy or laxative to obtain BM - Anemia, ? hematologic basis (macrocytic) - s/p renal transplant, now with blood clots in urine - PVD, s/p amputations - C. difficile negative - stable H&H Recommendations - Tolerating solids p.o. - monitor for further rectal bleeding - Agree with holding Xarelto - Urology consult appreciated - no plans for GI w/u at this time since patient refused laxatives. -Imodium as needed Follow-up labs The patient was seen and examined at bedside and all new and available data was reviewed in the patients chart. I agree with the above findings, impression and plan. (Patient seen earlier today. Signature stamp does not reflect patient encounter time.). - Fermin Cannon MD Subjective Subjective Denies any abdominal pain today Complaint of lower extremity pain Objective Last 24 Hour Vital Signs Date Time Temp Pulse Resp B/P (MAP) Pulse Ox O2 Delivery O2 Flow Rate FiO2 11/10/18 13:07 139/58 11/10/18 12:00 97.7 79 18 136/75 (95) 98 11/10/18 12:00 81 11/10/18 09:38 71 139/58 11/10/18 09:35 71 139/58 11/10/18 09:00 Room Air 11/10/18 08:00 74 11/10/18 08:00 98.2 71 18 139/58 (85) 97 11/10/18 05:21 139/71 11/10/18 04:00 72 11/10/18 04:00 97.2 85 19 130/70 (90) 95 11/10/18 00:00 78 11/10/18 00:00 97.9 82 18 142/69 (93) 98 11/09/18 22:07 142/63 11/09/18 22:07 75 142/63 11/09/18 21:00 Room Air 11/09/18 20:00 80 11/09/18 20:00 97.8 88 20 111/63 (79) 96 11/09/18 16:00 97.4 69 18 126/61 (82) 97 11/09/18 16:00 76 11/09/18 14:32 97.5 11/09/18 14:02 119/60 Intake and Output 11/09/18 11/10/18 19:00 07:00 Intake Total 360 ml 990 ml Balance 360 ml 990 ml Intake Oral 360 ml 240 ml IV Total 750 ml # Voids 3 1 # Bowel Movements 1 Laboratory Tests Test 11/10/18 10:20 White Blood Count 4.2 K/UL (4.8-10.8) L Red Blood Count 3.22 M/UL (4.20-5.40) L Hemoglobin 10.4 G/DL (12.0-16.0) L Hematocrit 32.2 % (37.0-47.0) L Mean Corpuscular Volume 100 FL (80-99) H Mean Corpuscular Hemoglobin 32.3 PG (27.0-31.0) H Mean Corpuscular Hemoglobin Concent 32.2 G/DL (32.0-36.0) Red Cell Distribution Width 13.6 % (11.6-14.8) Platelet Count 154 K/UL (150-450) Mean Platelet Volume 8.9 FL (6.5-10.1) Neutrophils (%) (Auto) 62.0 % (45.0-75.0) Lymphocytes (%) (Auto) 30.3 % (20.0-45.0) Monocytes (%) (Auto) 6.1 % (1.0-10.0) Eosinophils (%) (Auto) 0.3 % (0.0-3.0) Basophils (%) (Auto) 1.2 % (0.0-2.0) Sodium Level 141 MMOL/L (136-145) Potassium Level 3.6 MMOL/L (3.5-5.1) Chloride Level 109 MMOL/L (98-107) H Carbon Dioxide Level 27 MMOL/L (21-32) Anion Gap 5 mmol/L (5-15) Blood Urea Nitrogen 4 mg/dL (7-18) L Creatinine 0.8 MG/DL (0.55-1.30) Estimat Glomerular Filtration Rate mL/min (>60) Glucose Level 132 MG/DL (74-106) H Calcium Level 8.7 MG/DL (8.5-10.1) Height (Feet): 5 Height (Inches): 6.00 Weight (Pounds): 140 General Appearance: WD/WN, no apparent distress, alert Cardiovascular: normal rate Respiratory/Chest: normal breath sounds, no respiratory distress Abdominal Exam: normal bowel sounds, non tender, soft Extremities: non-tender Saranya Ge NP Nov 10, 2018 13:33
[2018-11-10] MEDS ORDERED: Loperamide 2mg cap ORAL PRN (14:00)
[2018-11-10] MEDS ORDERED: Acetaminophen 500mg (ES) tab ORAL PRN (14:00)
--- NOTE | 2018-11-10 15:24 | Nephrology Progress Note ---
Assessment/Plan Problem List: (1) Ischemia of extremity (2) Pyelonephritis (3) Hypomagnesemia (4) Kidney transplanted Plan continue rx uti as per ID,discussed 2-3 week levaquin, renal function stable so far, pain management Subjective HEENT: Reports: no symptoms Genitourinary: Reports: burning Neurologic/Psychiatric: Reports: no symptoms Objective Objective Last 24 Hour Vital Signs Date Time Temp Pulse Resp B/P (MAP) Pulse Ox O2 Delivery O2 Flow Rate FiO2 11/10/18 14:00 97.8 87 18 130/71 (90) 87 11/10/18 13:48 136/75 11/10/18 13:38 97.7 11/10/18 13:07 139/58 11/10/18 12:00 97.7 79 18 136/75 (95) 98 11/10/18 12:00 81 11/10/18 09:38 71 139/58 11/10/18 09:35 71 139/58 11/10/18 09:00 Room Air 11/10/18 08:00 74 11/10/18 08:00 98.2 71 18 139/58 (85) 97 11/10/18 05:21 139/71 11/10/18 04:00 72 11/10/18 04:00 97.2 85 19 130/70 (90) 95 11/10/18 00:00 78 11/10/18 00:00 97.9 82 18 142/69 (93) 98 11/09/18 22:07 142/63 11/09/18 22:07 75 142/63 11/09/18 21:00 Room Air 11/09/18 20:00 80 11/09/18 20:00 97.8 88 20 111/63 (79) 96 11/09/18 16:00 97.4 69 18 126/61 (82) 97 11/09/18 16:00 76 Intake and Output 11/09/18 11/10/18 19:00 07:00 Intake Total 360 ml 990 ml Balance 360 ml 990 ml Intake Oral 360 ml 240 ml IV Total 750 ml # Voids 3 1 # Bowel Movements 1 Laboratory Tests 11/10/18 10:20: White Blood Count 4.2L, Red Blood Count 3.22L, Hemoglobin 10.4L, Hematocrit 32.2L, Mean Corpuscular Volume 100H, Mean Corpuscular Hemoglobin 32.3H, Mean Corpuscular Hemoglobin Concent 32.2, Red Cell Distribution Width 13.6, Platelet Count 154, Mean Platelet Volume 8.9, Neutrophils (%) (Auto) 62.0, Lymphocytes (% ) (Auto) 30.3, Monocytes (%) (Auto) 6.1, Eosinophils (%) (Auto) 0.3, Basophils ( %) (Auto) 1.2, Sodium Level 141, Potassium Level 3.6, Chloride Level 109H, Carbon Dioxide Level 27, Anion Gap 5, Blood Urea Nitrogen 4L, Creatinine 0.8, Estimat Glomerular Filtration Rate , Glucose Level 132H, Calcium Level 8.7 Height (Feet): 5 Height (Inches): 6.00 Weight (Pounds): 140 General Appearance: no apparent distress, alert EENT: normal ENT inspection Neck: normal alignment, supple Cardiovascular: regular rhythm Respiratory/Chest: lungs clear Abdomen: other - mild tender over tp Extremities: other - r bka, L foot hyperpigment Kade Cochran MD Nov 10, 2018 15:24
[2018-11-10] MEDS: Levofloxacin 500mg tab ORAL SCH (16:17)
--- NOTE | 2018-11-10 20:30 | Discharge Summary ---
DATE OF ADMISSION: 11/03/2018 DATE OF DISCHARGE: 11/10/2018 ADMISSION DIAGNOSES: 1. Gastrointestinal bleed. 2. Hematuria. 3. Possible urinary tract infection. 4. Possible cellulitis of the left foot. 5. Kidney transplant. 6. Hypertension. 7. History of DVT. DISCHARGE DIAGNOSES: 1. Gastrointestinal bleed. 2. Hematuria. 3. Possible urinary tract infection. 4. Possible cellulitis of the left foot. 5. Kidney transplant. 6. Hypertension. 7. History of DVT. HOSPITAL COURSE: The patient was admitted with complaints of supposedly rectal bleeding. She had no bleeding while in-house. She did have some hematuria. This also resolved spontaneously. She was treated for urinary tract infection. There was initially also concern about possible osteomyelitis of the left foot. She had an x-ray that was negative and a CT scan showed evidence of osteomyelitis. She was continued on antibiotic therapy, but this was discontinued after the CT results came back. She will be discharged to a assisted facility. DISCHARGE MEDICATIONS: Please see discharge medication list for discharge medications. DIET: Cardiac diet. ACTIVITIES: Ad-marsha. FOLLOWUP: The patient will follow up in one to two days at the assisted facility. John Red M.D. DR: KELLY JOB#: [id number] CC:
--- NOTE | 2018-11-10 23:15 | Progress Note ---
DATE: 11/10/2018 SUBJECTIVE: No chest pain. No shortness of breath. No new signs of bleeding. Back on anticoagulation. PHYSICAL EXAMINATION: VITAL SIGNS: Blood pressure 133/73, pulse 90, respiratory rate 18, afebrile. LUNGS: Bilateral breath sounds. HEART: Regular rhythm and rate. Normal S1, S2 with a fourth heart sound. ABDOMEN: Soft. EXTREMITIES: Trace edema. IMPRESSION: 1. Hypertensive heart disease. 2. Chronic diastolic congestive heart failure. 3. Hypomagnesemia. 4. Status post replacement therapy. 5. Renal transplant. 6. Urinary tract infection, resolved. 7. Hematuria. 8. Acute on chronic DVT. 9. Lower extremity amputee. PLAN: 1. Awaiting placement. 2. Continuing full anticoagulation and observing for recurring signs of bleeding. 3. Antimicrobials per Infectious Diseases banking consultant. 4. Skin care. 5. Titrate antihypertensives. 6. Monitor renal parameters and volume status. Matthew Tinajero M.D. DR: Jessica JOB#: [id number] CC:
[2018-11-11] VITALS: BP 134/66
[2018-11-11] MEDS: D5 1/2NS 1,000 ML IV SCH (01:05)
[2018-11-11 04:00] VITALS: BP 133/80
[2018-11-11] MEDS: HydrALAZINE 25mg tab ORAL SCH ×2 (06:40→15:03)
--- NOTE | 2018-11-11 07:23 | General Progress Note ---
Assessment/Plan Problem List: (1) Diarrhea ICD Codes: R19.7 - Diarrhea SNOMED: 52318748 (2) UTI (urinary tract infection) ICD Codes: N39.0 - Urinary tract infection, site not specified SNOMED: 98525595 (3) Encephalopathy acute ICD Codes: G93.40 - Encephalopathy acute SNOMED: 1435788 (4) DVT (deep venous thrombosis) ICD Codes: I82.409 - Acute embolism and thrombosis of unspecified deep veins of unspecified lower extremity SNOMED: 243585651 (5) Acute GI bleeding ICD Codes: K92.2 - Gastrointestinal hemorrhage, unspecified SNOMED: 13684847 (6) Failure to thrive in adult ICD Codes: R62.7 - Adult failure to thrive SNOMED: 273793244 Status: stable, progressing Assessment/Plan iv abx PPI rx resume xarelto. watch for bleeding follow up cultures monitor labs vascular studies mri right foot- r/o osteo dc planning Subjective ROS Limited/Unobtainable: No Constitutional: Reports: weakness HEENT: Reports: no symptoms Cardiovascular: Reports: no symptoms Respiratory: Reports: no symptoms Gastrointestinal/Abdominal: Reports: no symptoms Genitourinary: Reports: no symptoms Neurologic/Psychiatric: Reports: pre-existing deficit Endocrine: Reports: no symptoms Hematologic/Lymphatic: Reports: no symptoms Allergies: Coded Allergies: No Known Allergies (Verified , 05/29/09) All Systems: reviewed and negative except above Subjective doesnt want remeron. no melena or brbpr. no hematuria. venous duplex with acute dvt and chronic. pain controlled. no fever or chills. right foot pain back on xarelto. no signs of bleeding. CT negative for osteo Objective Last 24 Hour Vital Signs Date Time Temp Pulse Resp B/P (MAP) Pulse Ox O2 Delivery O2 Flow Rate FiO2 11/11/18 06:40 133/80 11/11/18 04:00 97.2 83 18 133/80 (97) 99 11/11/18 00:00 97.3 74 17 134/66 (88) 99 11/10/18 21:35 132/69 11/10/18 21:00 Room Air 11/10/18 21:00 98 132/69 11/10/18 20:00 98.9 75 18 132/69 (90) 98 11/10/18 16:44 97.5 90 18 133/73 (93) 97 11/10/18 14:00 97.8 87 18 130/71 (90) 87 11/10/18 13:48 136/75 11/10/18 13:38 97.7 11/10/18 13:07 139/58 11/10/18 12:00 97.7 79 18 136/75 (95) 98 11/10/18 12:00 81 11/10/18 09:38 71 139/58 11/10/18 09:35 71 139/58 11/10/18 09:00 Room Air 11/10/18 08:00 74 11/10/18 08:00 98.2 71 18 139/58 (85) 97 Intake and Output 11/10/18 11/11/18 19:00 07:00 Intake Total 360 ml 375 ml Balance 360 ml 375 ml Intake Oral 360 ml IV Total 375 ml # Voids 2 Laboratory Tests 11/10/18 10:20: White Blood Count 4.2L, Red Blood Count 3.22L, Hemoglobin 10.4L, Hematocrit 32.2L, Mean Corpuscular Volume 100H, Mean Corpuscular Hemoglobin 32.3H, Mean Corpuscular Hemoglobin Concent 32.2, Red Cell Distribution Width 13.6, Platelet Count 154, Mean Platelet Volume 8.9, Neutrophils (%) (Auto) 62.0, Lymphocytes (% ) (Auto) 30.3, Monocytes (%) (Auto) 6.1, Eosinophils (%) (Auto) 0.3, Basophils ( %) (Auto) 1.2, Sodium Level 141, Potassium Level 3.6, Chloride Level 109H, Carbon Dioxide Level 27, Anion Gap 5, Blood Urea Nitrogen 4L, Creatinine 0.8, Estimat Glomerular Filtration Rate , Glucose Level 132H, Calcium Level 8.7 Height (Feet): 5 Height (Inches): 6.00 Weight (Pounds): 140 Objective General Appearance: WD/WN, alert Neck: supple Cardiovascular: normal peripheral pulses, normal rate, regular rhythm Respiratory/Chest: chest wall non-tender, lungs clear, normal breath sounds, no respiratory distress Abdomen: normal bowel sounds, non tender, soft, no organomegaly Edema: no edema noted Arm (L), no edema noted Arm (R), no edema noted Leg (L), no edema noted Leg (R), no edema noted Pedal (L), no edema noted Pedal (R), no edema noted Generalized John Red MD Nov 11, 2018 07:23
--- NOTE | 2018-11-11 07:43 | Urology Progress Note ---
Assessment/Plan Assessment/Plan 1. Hematuria. 2. UTI. 3. Proteinuria. 4. Urinary frequency. 5. Possible neurogenic bladder. 6. Cystitis history. 7. 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 8. Renal cysts. 9. 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 monitor clinically abx as ordered diflucan added cysto later f/u on final urine cx Subjective Allergies: Coded Allergies: No Known Allergies (Verified , 05/29/09) Subjective all noted, feels fair, urine "brownish" by report Objective Last 24 Hour Vital Signs Date Time Temp Pulse Resp B/P (MAP) Pulse Ox O2 Delivery O2 Flow Rate FiO2 11/11/18 06:40 133/80 11/11/18 04:00 97.2 83 18 133/80 (97) 99 11/11/18 00:00 97.3 74 17 134/66 (88) 99 11/10/18 21:35 132/69 11/10/18 21:00 Room Air 11/10/18 21:00 98 132/69 11/10/18 20:00 98.9 75 18 132/69 (90) 98 11/10/18 16:44 97.5 90 18 133/73 (93) 97 11/10/18 14:00 97.8 87 18 130/71 (90) 87 11/10/18 13:48 136/75 11/10/18 13:38 97.7 11/10/18 13:07 139/58 11/10/18 12:00 97.7 79 18 136/75 (95) 98 11/10/18 12:00 81 11/10/18 09:38 71 139/58 11/10/18 09:35 71 139/58 11/10/18 09:00 Room Air 11/10/18 08:00 74 11/10/18 08:00 98.2 71 18 139/58 (85) 97 Intake and Output 11/10/18 11/11/18 19:00 07:00 Intake Total 360 ml 375 ml Balance 360 ml 375 ml Intake Oral 360 ml IV Total 375 ml # Voids 2 Microbiology Date/Time Source Procedure Growth Status 11/06/18 16:45 Stool Clostridium difficile Toxin Assay - Final Complete 11/07/18 16:27 Urine,Clean Catch Urine Culture - Preliminary Enterococcus Faecalis YEAST Resulted Current Medications Medications (Trade) Dose Ordered Sig/Toya Route PRN Reason Start Time Stop Time Status Last Admin Dose Admin Acetaminophen (Tylenol) 500 mg Q4H PRN ORAL Mild Pain/Temp > 100.5 11/10/18 14:00 12/03/18 13:59 Acetaminophen/ Hydrocodone Bitart ([place] 10/325) 1 tab DAILY ORAL 11/11/18 09:00 11/11/18 09:30 Amlodipine Besylate (Norvasc) 5 mg DAILY ORAL 11/11/18 09:00 12/04/18 08:59 Azathioprine (Imuran) 75 mg DAILY ORAL 11/11/18 09:00 12/04/18 08:59 Carvedilol (Coreg) 3.125 mg EVERY 12 HOURS ORAL 11/10/18 21:00 12/03/18 20:59 Cyclosporine (SandIMMUNE) 100 mg BID ORAL 11/10/18 18:00 12/04/18 08:59 11/10/18 17:30 Fluconazole (Diflucan) 100 mg DAILY ORAL 11/11/18 09:00 11/15/18 11:02 Fludrocortisone Acetate (Florinef) 0.1 mg DAILY ORAL 11/11/18 09:00 12/04/18 08:59 Hydralazine HCl (Apresoline) 25 mg EVERY 8 HOURS ORAL 11/10/18 14:00 12/03/18 21:59 11/11/18 06:40 Levofloxacin (Levaquin) 500 mg DAILY ORAL 11/10/18 15:30 11/17/18 15:29 11/10/18 16:17 Loperamide HCl (Imodium) 2 mg Q4H PRN ORAL Diarrhea 11/10/18 14:00 12/08/18 13:59 Ondansetron HCl (Zofran) 4 mg Q6H PRN IVP Nausea & Vomiting 11/10/18 14:00 12/03/18 13:59 Pantoprazole (Protonix) 40 mg DAILY ORAL 11/11/18 09:00 12/04/18 08:59 Rivaroxaban (Xarelto) 10 mg DAILY ORAL 11/11/18 09:00 12/08/18 08:59 Temazepam (Restoril) 15 mg HSPRN PRN ORAL Insomnia 11/10/18 21:00 11/11/18 20:59 11/10/18 23:15 Laboratory Tests 11/10/18 10:20: White Blood Count 4.2L, Red Blood Count 3.22L, Hemoglobin 10.4L, Hematocrit 32.2L, Mean Corpuscular Volume 100H, Mean Corpuscular Hemoglobin 32.3H, Mean Corpuscular Hemoglobin Concent 32.2, Red Cell Distribution Width 13.6, Platelet Count 154, Mean Platelet Volume 8.9, Neutrophils (%) (Auto) 62.0, Lymphocytes (% ) (Auto) 30.3, Monocytes (%) (Auto) 6.1, Eosinophils (%) (Auto) 0.3, Basophils ( %) (Auto) 1.2, Sodium Level 141, Potassium Level 3.6, Chloride Level 109H, Carbon Dioxide Level 27, Anion Gap 5, Blood Urea Nitrogen 4L, Creatinine 0.8, Estimat Glomerular Filtration Rate , Glucose Level 132H, Calcium Level 8.7 Height (Feet): 5 Height (Inches): 6.00 Weight (Pounds): 140 Objective exam stable renal u/s done, result noted, no hydro in transplant kidney Andrés Guillory MD Nov 11, 2018 07:43
[2018-11-11 08:00] VITALS: BP 149/86
[2018-11-11] MEDS: Levofloxacin 500mg tab ORAL SCH (08:59)
[2018-11-11] MEDS ORDERED: HYDROcodone/Acetamin 10/325 tab ORAL SCH (09:00)
[2018-11-11] MEDS ORDERED: Xarelto 10mg tab ORAL SCH (09:00)
[2018-11-11] MEDS ORDERED: azaTHIOprine 50 MG TAB ORAL SCH (09:00)
[2018-11-11] MEDS ORDERED: Fluconazole 100mg tab ORAL SCH (09:00)
[2018-11-11] MEDS: cycloSPORINE 100mg cap ORAL SCH (09:00)
--- NOTE | 2018-11-11 11:55 | GI Progress Note ---
Assessment/Plan Problems: (1) Failure to thrive in adult ICD Codes: R62.7 - Adult failure to thrive SNOMED: 780308459 (2) Acute GI bleeding ICD Codes: K92.2 - Gastrointestinal hemorrhage, unspecified SNOMED: 44065777 (3) Diarrhea ICD Codes: R19.7 - Diarrhea SNOMED: 39061454 (4) GIB (gastrointestinal bleeding) ICD Codes: K92.2 - Gastrointestinal hemorrhage, unspecified SNOMED: 91418767 (5) Abdominal pain ICD Codes: R10.9 - Abdominal pain SNOMED: 39307265 (6) Phantom limb pain ICD Codes: G54.6 - Phantom limb syndrome with pain SNOMED: 5889656253941 (7) Dehydration ICD Codes: E86.0 - Dehydration SNOMED: 61906689 (8) Colitis ICD Codes: K52.9 - Colitis SNOMED: 687628796 Status: stable Status Narrative Discussed with Dr. Cannon Assessment/Plan Assessment - rectal bleeding (no blood or melena on rectal exam) vs just gross hematuria. OB stool negative. - patient declines to take GI preparation for colonoscopy or laxative to obtain BM - Anemia, ? hematologic basis (macrocytic) - s/p renal transplant, now with blood clots in urine - PVD, s/p amputations - C. difficile negative - stable H&H Recommendations - Tolerating solids p.o. - monitor for further rectal bleeding - Agree with holding Xarelto - Urology consult appreciated - no plans for GI w/u at this time since patient refused laxatives. -Imodium as needed Follow-up labs DC planning The patient was seen and examined at bedside and all new and available data was reviewed in the patients chart. I agree with the above findings, impression and plan. (Patient seen earlier today. Signature stamp does not reflect patient encounter time.). - Fermin Cannon MD Subjective Subjective Denies any abdominal pain today Complaint of lower extremity pain Objective Last 24 Hour Vital Signs Date Time Temp Pulse Resp B/P (MAP) Pulse Ox O2 Delivery O2 Flow Rate FiO2 11/11/18 09:00 Room Air 11/11/18 08:59 91 149/86 11/11/18 08:59 91 149/86 11/11/18 08:00 97.5 91 20 149/86 (107) 100 11/11/18 06:40 133/80 2/7/19 04:00 97.2 83 18 133/80 (97) 99 11/11/18 00:00 97.3 74 17 134/66 (88) 99 11/10/18 21:35 132/69 11/10/18 21:00 Room Air 11/10/18 21:00 98 132/69 11/10/18 20:00 98.9 75 18 132/69 (90) 98 11/10/18 16:44 97.5 90 18 133/73 (93) 97 11/10/18 14:00 97.8 87 18 130/71 (90) 87 11/10/18 13:48 136/75 11/10/18 13:38 97.7 11/10/18 13:07 139/58 11/10/18 12:00 97.7 79 18 136/75 (95) 98 11/10/18 12:00 81 Intake and Output 11/10/18 11/11/18 19:00 07:00 Intake Total 360 ml 375 ml Balance 360 ml 375 ml Intake Oral 360 ml IV Total 375 ml # Voids 2 Height (Feet): 5 Height (Inches): 6.00 Weight (Pounds): 140 General Appearance: WD/WN, no apparent distress, alert Cardiovascular: normal rate Respiratory/Chest: normal breath sounds, no respiratory distress Abdominal Exam: normal bowel sounds, non tender, soft Extremities: normal range of motion, non-tender Saranya Ge NP Nov 11, 2018 11:55
--- NOTE | 2018-11-11 13:17 | Nephrology Progress Note ---
Assessment/Plan Problem List: (1) Ischemia of extremity (2) Pyelonephritis (3) Hypomagnesemia (4) Kidney transplanted Plan continue rx uti as per ID,discussed 2-3 week levaquin, renal function stable so far, pain management, dc iv fluid Subjective Constitutional: Reports: weakness HEENT: Reports: no symptoms Genitourinary: Reports: burning Neurologic/Psychiatric: Reports: no symptoms Objective Objective Last 24 Hour Vital Signs Date Time Temp Pulse Resp B/P (MAP) Pulse Ox O2 Delivery O2 Flow Rate FiO2 11/11/18 09:00 Room Air 11/11/18 08:59 91 149/86 11/11/18 08:59 91 149/86 11/11/18 08:00 97.5 91 20 149/86 (107) 100 11/11/18 06:40 133/80 11/11/18 04:00 97.2 83 18 133/80 (97) 99 11/11/18 00:00 97.3 74 17 134/66 (88) 99 11/10/18 21:35 132/69 11/10/18 21:00 Room Air 11/10/18 21:00 98 132/69 11/10/18 20:00 98.9 75 18 132/69 (90) 98 11/10/18 16:44 97.5 90 18 133/73 (93) 97 11/10/18 14:00 97.8 87 18 130/71 (90) 87 11/10/18 13:48 136/75 11/10/18 13:38 97.7 Intake and Output 11/10/18 11/11/18 19:00 07:00 Intake Total 360 ml 375 ml Balance 360 ml 375 ml Intake Oral 360 ml IV Total 375 ml # Voids 2 Height (Feet): 5 Height (Inches): 6.00 Weight (Pounds): 140 General Appearance: no apparent distress, alert EENT: normal ENT inspection Neck: normal alignment Cardiovascular: normal rate Respiratory/Chest: lungs clear Abdomen: non tender Extremities: other - r bka, hyperpigment L foot Kade Cochran MD Nov 11, 2018 13:17
--- NOTE | 2018-11-11 14:24 | Infectious Diseases Prog Note ---
Assessment/Plan Assessment/Plan A 1. E. Coli, Enterococcus, fungal UTI urinary tract infection. 2. History of peripheral vascular disease. 3. History of kidney transplant. 4. PVD P 1. continue Po Levaquin & Fluconazole 2. will follow up cultures Subjective ROS Limited/Unobtainable: No Constitutional: Reports: no symptoms Respiratory: Reports: no symptoms Cardiovascular: Reports: no symptoms Genitourinary: Reports: frequency Allergies: Coded Allergies: No Known Allergies (Verified , 05/29/09) Objective Vital Signs Last 24 Hour Vital Signs Date Time Temp Pulse Resp B/P (MAP) Pulse Ox O2 Delivery O2 Flow Rate FiO2 11/11/18 09:00 Room Air 11/11/18 08:59 91 149/86 11/11/18 08:59 91 149/86 11/11/18 08:00 97.5 91 20 149/86 (107) 100 11/11/18 06:40 133/80 11/11/18 04:00 97.2 83 18 133/80 (97) 99 11/11/18 00:00 97.3 74 17 134/66 (88) 99 11/10/18 21:35 132/69 11/10/18 21:00 Room Air 11/10/18 21:00 98 132/69 11/10/18 20:00 98.9 75 18 132/69 (90) 98 11/10/18 16:44 97.5 90 18 133/73 (93) 97 Height (Feet): 5 Height (Inches): 6.00 Weight (Pounds): 140 General Appearance: no acute distress HEENT: mucous membranes moist Respiratory/Chest: lungs clear Cardiovascular: normal rate Abdomen: soft, non tender Extremities: no edema, other - R BKA Skin: other - skin discoloration left great toe Current Medications Medications (Trade) Dose Ordered Sig/Toya Route PRN Reason Start Time Stop Time Status Last Admin Dose Admin Acetaminophen (Tylenol) 500 mg Q4H PRN ORAL Mild Pain/Temp > 100.5 11/10/18 14:00 12/03/18 13:59 Amlodipine Besylate (Norvasc) 5 mg DAILY ORAL 11/11/18 09:00 12/04/18 08:59 11/11/18 08:59 Azathioprine (Imuran) 75 mg DAILY ORAL 11/11/18 09:00 12/04/18 08:59 11/11/18 09:00 Carvedilol (Coreg) 3.125 mg EVERY 12 HOURS ORAL 11/10/18 21:00 12/03/18 20:59 11/11/18 08:59 Cyclosporine (SandIMMUNE) 100 mg BID ORAL 11/10/18 18:00 12/04/18 08:59 11/11/18 09:00 Fluconazole (Diflucan) 100 mg DAILY ORAL 11/11/18 09:00 11/15/18 11:02 11/11/18 08:59 Fludrocortisone Acetate (Florinef) 0.1 mg DAILY ORAL 11/11/18 09:00 12/04/18 08:59 11/11/18 09:00 Hydralazine HCl (Apresoline) 25 mg EVERY 8 HOURS ORAL 11/10/18 14:00 12/03/18 21:59 11/11/18 06:40 Levofloxacin (Levaquin) 500 mg DAILY ORAL 11/10/18 15:30 11/17/18 15:29 11/11/18 08:59 Loperamide HCl (Imodium) 2 mg Q4H PRN ORAL Diarrhea 11/10/18 14:00 12/08/18 13:59 Ondansetron HCl (Zofran) 4 mg Q6H PRN IVP Nausea & Vomiting 11/10/18 14:00 12/03/18 13:59 Pantoprazole (Protonix) 40 mg DAILY ORAL 11/11/18 09:00 12/04/18 08:59 11/11/18 09:00 Rivaroxaban (Xarelto) 10 mg DAILY ORAL 11/11/18 09:00 12/08/18 08:59 11/11/18 08:59 Temazepam (Restoril) 15 mg HSPRN PRN ORAL Insomnia 11/10/18 21:00 11/11/18 20:59 11/10/18 23:15 Lucian Maguire MD Nov 11, 2018 14:24
[2018-11-11] MEDS ORDERED: LEVAQUIN500 MG ORAL (14:47)
[2018-11-11 15:03] VITALS: BP 149/86
[2018-11-11] MEDS ORDERED: D5 1/2NS 1000ml IV ONE (15:57)
--- NOTE | 2018-11-11 16:02 | Diagnostic Imaging Report ---
APPROVED REPORT CPT Code: 24050 Present Symptoms Left LEFT UPPER EXTREMITY: Imaging of the subclavian, axillary, brachial, radial and ulnar arteries is within normal limits. There is no evidence of stenosis or occlusions within these segments. The Doppler waveforms of the left upper extremity are multiphasic, consistent with normal inflow to the left upper extremity.
--- NOTE | 2018-11-11 23:30 | Progress Note ---
DATE: 11/11/2018 CARDIOLOGY PROGRESS NOTE SUBJECTIVE: The patient has controlled pain. No shortness of breath. She is on anticoagulation for her DVT. There is no new bleeding noted. OBJECTIVE: VITAL SIGNS: Blood pressure 133/80, pulse 83, and respirations 18. LUNGS: Clear. CARDIAC: Regular. Normal S1, S2. ABDOMEN: Soft. Transplant site with no tenderness. EXTREMITIES: With a clean stump. No edema. Toe amputation site with no active drainage. DIAGNOSTIC DATA: CAT scan is negative for osteomyelitis. IMPRESSION: 1. Pacemaker. 2. Peripheral artery disease, status post amputation. 3. Local cellulitis. No osteomyelitis. 4. Acute and chronic DVT. 5. Hypertensive heart disease. 6. Renal transplant. PLAN: 1. Continue full anticoagulation. 2. Monitor for bleeding complications. 3. Continue antimicrobials and skin care. 4. Insulin coverage by sliding scale. 5. Maintain current antihypertensive regimen. Matthew Tinajero M.D. DR: DEVYN JOB#: [id number] CC:
--- NOTE | 2018-11-12 10:57 | Discharge Summary ---
Discharge Summary Hospital Course Date of Admission Nov 03, 2018 at 18:25 Date of Discharge Nov 11, 2018 at 15:58 Admitting Diagnosis HPI Hospital Course Addendum: Dc order was placed on 11/10/18, however, no placement was arranged. Patient left the following day, 11/11/18, after bed was secured at a SNF. Discharge Discharge Disposition Patient was discharged to SNF/Subacute Facility(03) Vannessa Damon NP Nov 12, 2018 10:57
== END 2018-11-11 15:58 | DRG 377 ==
LOC: EDBD 17:31 → EMR 18:17 → 2E 18:25 → EDBEDREQ 19:25 → 2E 11-04 04:52 → 4E 11-10 13:43
DX: K92.2 Gastrointestinal hemorrhage, unspecified (principal); G92 Toxic encephalopathy; N39.0 Urinary tract infection, site not specified; L03.116 Cellulitis of left lower limb; I50.32 Chronic diastolic (congestive) heart failure; I69.351 Hemiplegia and hemiparesis following cerebral infarction affecting right dominant side; I42.0 Dilated cardiomyopathy; I82.511 Chronic embolism and thrombosis of right femoral vein; I82.412 Acute embolism and thrombosis of left femoral vein; Z89.511 Acquired absence of right leg below knee; Z89.421 Acquired absence of other right toe(s); I11.0 Hypertensive heart disease with heart failure; G54.6 Phantom limb syndrome with pain; R31.9 Hematuria, unspecified; B96.20 Unspecified Escherichia coli [E. coli] as the cause of diseases classified elsewhere; R62.7 Adult failure to thrive; Z68.22 Body mass index [BMI] 22.0-22.9, adult; E11.9 Type 2 diabetes mellitus without complications; B95.2 Enterococcus as the cause of diseases classified elsewhere; J44.9 Chronic obstructive pulmonary disease, unspecified; E86.0 Dehydration; E83.42 Hypomagnesemia; Z79.01 Long term (current) use of anticoagulants; Z95.0 Presence of cardiac pacemaker
CPT/HCPCS: 36415; 76770; 80048; 80053; 80158; 80202; 81001; 81003; 82270; 82607; 82747; 83690; 83735; 84100; 84484; 85007; 85025; 85610; 85730; 86850; 86900; 86901; 87086; 87181; 87324; 93005; 93926; 93970; 93971; 96361; 96365; 96375; 99285; J8499

== ENCOUNTER 2019-03-09 11:37 | Inpatient (IN) | payer MEDICARE, MEDICAID ==
[~2019-03-09] VITALS: Ht 167.6 cm; Wt 81.7 kg
[~2019-03-09 11:37] MED LIST changes: +CREON DR 36,001 EACH PO; +DIFLUCAN100 MG ORAL; +FUROSEMIDE20 M1 ORAL; +MIRTAZAPINE15 M3 ORAL; +NORCO 10-325 T1 EACH ORAL; +XARELTO10 MG ORAL
[2019-03-09 11:50] VITALS: BP 150/80
[2019-03-09 12:59] LABS: BASOPHILS % (AUTO) 0.6 % (0.0-2.0); EOSINOPHILS % (AUTO) 0.4 % (0.0-3.0); HEMATOCRIT 31.8 % (37.0-47.0); HEMOGLOBIN 10.4 G/DL (12.0-16.0); LYMPHOCYTES % (AUTO) 13.5 % (20.0-45.0); MEAN CORPUSCULAR VOLUME 101 FL (80-99); MONOCYTES % (AUTO) 5.1 % (1.0-10.0); NEUTROPHILS % (AUTO) 80.5 % (45.0-75.0); PLATELET COUNT 226 K/UL (150-450); RED BLOOD COUNT 3.14 M/UL (4.20-5.40); RED CELL DISTRIBUTION WIDTH 14.3 % (11.6-14.8)
[2019-03-09 13:05] LABS: ANION GAP 7 mmol/L (5-15); BLOOD UREA NITROGEN 12 mg/dL (7-18); CALCIUM 9.8 MG/DL (8.5-10.1); CARBON DIOXIDE 26 MMOL/L (21-32); CHLORIDE 109 MMOL/L (98-107); CREATININE 0.9 MG/DL (0.55-1.30); POTASSIUM 4.3 MMOL/L (3.5-5.1); SODIUM 142 MMOL/L (136-145)
[2019-03-09 13:10] LABS: ALANINE AMINOTRANSFERASE 12 U/L (12-78); ALBUMIN 3.1 G/DL (3.4-5.0); ALBUMIN/GLOBULIN RATIO 0.6 (1.0-2.7); ALKALINE PHOSPHATASE 103 U/L (46-116); ASPARTATE AMINO TRANSFERASE 22 U/L (15-37); BILIRUBIN,TOTAL 0.6 MG/DL (0.2-1.0)
[2019-03-09] MEDS ORDERED: Dextrose 5%/Lactated Ringer's 1,000 ML IV SCH (13:30)
[2019-03-09 14:30] VITALS: BP 166/64
[2019-03-09 15:30] VITALS: BP 136/82
[2019-03-09] MEDS ORDERED: Levofloxacin 500mg tab ORAL SCH (17:00)
[2019-03-09] MEDS: HydrALAZINE 25mg tab ORAL SCH ×2 (17:00→21:04)
[2019-03-09] MEDS: azaTHIOprine 50 MG TAB ORAL SCH (17:00)
[2019-03-09] MEDS ORDERED: HYDROcodone/Acetamin 10/325 tab ORAL SCH (17:00)
[2019-03-09] MEDS: cycloSPORINE 100mg cap ORAL SCH (18:00)
[2019-03-09] MEDS: Fluconazole 100mg tab ORAL SCH (18:45)
[2019-03-09 20:00] VITALS: BP 179/94
[2019-03-09] MEDS: HYDROcodone/Acetamin 10/325 tab ORAL PRN (21:06)
[2019-03-10] VITALS: BP 134/74
[2019-03-10 04:00] VITALS: BP 126/64
[2019-03-10] MEDS: HYDROcodone/Acetamin 10/325 tab ORAL PRN (05:57)
[2019-03-10] MEDS: HydrALAZINE 25mg tab ORAL SCH ×3 (05:57→22:40)
[2019-03-10 08:01] LABS: BASOPHILS % (AUTO) 0.7 % (0.0-2.0); EOSINOPHILS % (AUTO) 1.1 % (0.0-3.0); HEMATOCRIT 28.3 % (37.0-47.0); HEMOGLOBIN 9.5 G/DL (12.0-16.0); LYMPHOCYTES % (AUTO) 23.5 % (20.0-45.0); MEAN CORPUSCULAR VOLUME 99 FL (80-99); MONOCYTES % (AUTO) 4.8 % (1.0-10.0); NEUTROPHILS % (AUTO) 69.9 % (45.0-75.0); PLATELET COUNT 201 K/UL (150-450); RED BLOOD COUNT 2.86 M/UL (4.20-5.40); RED CELL DISTRIBUTION WIDTH 13.9 % (11.6-14.8); WHITE BLOOD COUNT 6.6 K/UL (4.8-10.8)
[2019-03-10 08:31] VITALS: BP_SYST 118; BP_SYST 136; BP_DIAS 57; BP_DIAS 82
[2019-03-10] MEDS: Fluconazole 100mg tab ORAL SCH (08:59)
[2019-03-10] MEDS: azaTHIOprine 50 MG TAB ORAL SCH (09:00)
[2019-03-10] MEDS: cycloSPORINE 100mg cap ORAL SCH ×2 (09:01→20:56)
[2019-03-10] MEDS: Xarelto 10mg tab ORAL SCH (09:02)
--- NOTE | 2019-03-10 09:15 | History and Physical Report ---
DATE OF ADMISSION: 03/09/2019 CHIEF COMPLAINT: Abdominal pain. HISTORY OF PRESENT ILLNESS: The patient is a pleasant 79-year-old female, well known to me. She has a prior history of a BKA and hypertension. She has a prior history of DVT and kidney transplant, who presented from home with complaints of severe abdominal pain and bloody stool. According to the patient, she has had intermittent episodes of blood-streaked stool. She has also had worsening midepigastric abdominal pain that she describes as severe. She eventually presented to the emergency room. There, her initial hemoglobin was 10.4. This is slightly lower than prior to admission. This morning it has downtrended to 9.5. She has had no bleeding while here in the hospital. She denies any melena. She has had no hematemesis. Her pain is mid-epigastric and according to the patient, it is severe. In light of her worsening abdominal pain and bloody stool and anemia, she is now admitted for further evaluation and care. PAST MEDICAL HISTORY: As above. PAST SURGICAL HISTORY: Includes a BKA and kidney transplant, CURRENT MEDICATIONS: Reconciled and reviewed. ALLERGIES: None. FAMILY HISTORY: None. SOCIAL HISTORY: Negative for tobacco, ethanol, or drugs. REVIEW OF SYSTEMS: GENERAL: No fevers or chills. HEENT: No headaches or visual changes. CARDIOPULMONARY: No chest pain or shortness of breath. GASTROINTESTINAL: No nausea. No vomiting. Positive midepigastric abdominal pain. Positive bright red blood per rectum. GENITOURINARY: No urgency or frequency. MUSCULOSKELETAL: No joint pain or swelling. NEUROLOGIC: No evidence of seizures. The patient does have a history of severe phantom limb pain. PHYSICAL EXAMINATION: VITAL SIGNS: Temperature 97.4, pulse 89, respirations 20, and blood pressure 134/79. GENERAL: The patient is a well-developed female, in no apparent distress. She is awake, alert, and oriented x4. NECK: Supple. HEART: Regular rate and rhythm. LUNGS: Clear. ABDOMEN: Soft. Mildly tender in the mid epigastric region. EXTREMITIES: Without clubbing or cyanosis. The patient has a BKA on the right. PERTINENT DATA: White count 9, hemoglobin 10.4, and platelets of 226,000. Sodium 142, potassium is 4.3, and creatinine is 0.9. LFTs were unremarkable. ASSESSMENT: This is a pleasant female admitted with complaints of bright red blood per rectum and abdominal pain etiologies of which is unclear. PLAN: 1. Check stool for occult blood. 2. Check a lipase. 3. CT scan of the abdomen. 4. Gastrointestinal and Renal consultations will be obtained. 5. The patient will be continued on outpatient cardiac and transplant regimen. 6. Further plan of care will be determined after discussion with consultants and review of pending tests. John Red M.D. DR: KELLY JOB#: [id number] CC:
[2019-03-10 12:00] VITALS: BP 147/76
[2019-03-10 16:00] VITALS: BP 132/73
[2019-03-10 20:00] VITALS: BP 137/74
--- NOTE | 2019-03-10 20:24 | Emergency Room Report ---
History of Present Illness General Chief Complaint: Diarrhea Source: Patient, EMS Present Illness HPI Patient is an 79-year-old female who presented via EMS after increased rectal bleeding and lower abdominal pain. Patient had prior history of renal transplant. She has had some episodes of bleeding in the past. Patient states that she was noted to have some bright red blood with stooling. She denies any fever. She reports having some suprapubic abdominal pain. She denies any vomiting. Patient reports having some slight increased discomfort to the lower abdomen. Allergies: Coded Allergies: No Known Allergies (Verified , 05/29/09) Patient History Past Medical History: see triage record Reviewed Nursing Documentation: PMH: Agreed; PSxH: Agreed Nursing Documentation-PMH Past Medical History: No History, Except For Hx Cardiac Problems: Yes Hx Hypertension: Yes Hx Pacemaker: Yes - left upper chest Hx Asthma: Yes Hx Diabetes: Yes Hx Cancer: No Hx Gastrointestinal Problems: No Hx Dialysis: No Hx Neurological Problems: Yes - right BKA Hx Cerebrovascular Accident: Yes Hx Seizures: Yes - LAST EPISODE 2011 Hx Memory Loss: Yes Hx Dizziness: Yes Review of Systems All Other Systems: negative except mentioned in HPI Physical Exam Vital Signs Date Time Temp Pulse Resp B/P (MAP) Pulse Ox O2 Delivery O2 Flow Rate FiO2 03/09/19 11:32 98.6 91 20 166/71 (102) 99 Room Air Sp02 EP Interpretation: reviewed, normal General Appearance: no apparent distress, alert, GCS 15, Chronically Ill Head: atraumatic ENT: normal ENT inspection, hearing grossly normal, normal voice Neck: normal inspection, full range of motion, supple, no bony tend Respiratory: normal inspection, lungs clear, normal breath sounds, no respiratory distress, no retraction, no wheezing Cardiovascular #1: regular rate, rhythm, no edema Gastrointestinal: normal inspection, normal bowel sounds, non tender, soft, no guarding, no hernia Genitourinary: no CVA tenderness Musculoskeletal: back normal, other - Right BKA Neurologic: normal inspection, alert, oriented x3, responsive Psychiatric: normal inspection, judgement/insight normal, mood/affect normal Skin: normal inspection, normal color, no rash Medical Decision Making Diagnostic Impression: Primary Impression: Abdominal pain Additional Impressions: GIB (gastrointestinal bleeding) Status post kidney transplant ER Course Patient presented for abdominal pain and rectal bleeding. Differential diagnosis include was not limited to anemia, coagulopathy, diverticulosis, hemorrhoidal bleeding among others. Because of complexity of patient's case laboratory testing and imaging studies were ordered. Patient was noted to have adequate hemoglobin on initial testing. This was unchanged from patient's previous. Patient was noted to have some initial tenderness to the suprapubic area. Patient was started on some IV fluids. Dr. John Red was contacted for inpatient observation due to primary care physician Laboratory Tests Test 03/09/19 12:35 White Blood Count 9.0 K/UL (4.8-10.8) Red Blood Count 3.14 M/UL (4.20-5.40) L Hemoglobin 10.4 G/DL (12.0-16.0) L Hematocrit 31.8 % (37.0-47.0) L Mean Corpuscular Volume 101 FL (80-99) H ) Mean Corpuscular Hemoglobin 33.2 PG (27.0-31.0) H Mean Corpuscular Hemoglobin Concent 32.7 G/DL (32.0-36.0) Red Cell Distribution Width 14.3 % (11.6-14.8) Platelet Count 226 K/UL (150-450) Mean Platelet Volume 8.4 FL (6.5-10.1) Neutrophils (%) (Auto) 80.5 % (45.0-75.0) H Lymphocytes (%) (Auto) 13.5 % (20.0-45.0) L Monocytes (%) (Auto) 5.1 % (1.0-10.0) Eosinophils (%) (Auto) 0.4 % (0.0-3.0) Basophils (%) (Auto) 0.6 % (0.0-2.0) Sodium Level 142 MMOL/L (136-145) Potassium Level 4.3 MMOL/L (3.5-5.1) Chloride Level 109 MMOL/L (98-107) H Carbon Dioxide Level 26 MMOL/L (21-32) Anion Gap 7 mmol/L (5-15) Blood Urea Nitrogen 12 mg/dL (7-18) Creatinine 0.9 MG/DL (0.55-1.30) Estimate Glomerular Filtration Rate mL/min (>60) Glucose Level 202 MG/DL (74-106) H Lactic Acid Level 1.70 mmol/L (0.4-2.0) Calcium Level 9.8 MG/DL (8.5-10.1) Total Bilirubin 0.6 MG/DL (0.2-1.0) Aspartate Amino Transferase (AST) 22 U/L (15-37) Alanine Aminotransferase (ALT) 12 U/L (12-78) Alkaline Phosphatase 103 U/L (46-116) Total Protein 8.2 G/DL (6.4-8.2) Albumin 3.1 G/DL (3.4-5.0) L Globulin 5.1 g/dL Albumin/Globulin Ratio 0.6 (1.0-2.7) L Microbiology Date/Time Source Procedure Growth Status 03/09/19 11:40 Stool Clostridium difficile Toxin Assay - Final Complete Last Vital Signs Date Time Temp Pulse Resp B/P (MAP) Pulse Ox O2 Delivery O2 Flow Rate FiO2 03/10/19 16:00 97.7 88 19 132/73 (92) 98 03/10/19 09:20 Room Air Status: improved Disposition: PLACE IN OBSERVATION Condition: Serious Referrals: John Red MD (PCP) Joseph Mckeon MD Mar 10, 2019 20:24
--- NOTE | 2019-03-10 22:15 | Consultation ---
DATE OF CONSULTATION: 03/10/2019 CONSULTING PHYSICIAN: Kade Cochran M.D. REFERRING PHYSICIAN: John Red M.D. CHIEF COMPLAINT AND REASON FOR HOSPITALIZATION: The patient is an 79-year-old lady with a kidney transplant admitted with abdominal pain, diarrhea, and some hematochezia. HISTORY OF PRESENT ILLNESS: The patient is well-known to me, has had a kidney transplant in 1996, but generally stable renal functions. She has had peripheral vascular disease and amputations, and recurrent UTIs, and multiple medical complications. There is a history of hypertension, prior hyperkalemia, and chronic pain. SURGERIES: Include kidney transplant, multiple dialysis vascular access procedures, permanent pacemaker, amputation of the right leg below the knee, toe amputation on the left, multiple vascular procedures, and debridements of wounds on the legs. MEDICATIONS: Include azathioprine and cyclosporine for transplant, fludrocortisone, Lasix, amlodipine, carvedilol, mirtazapine, and Protonix. Current medicines, she cannot give me an adequate list. HABITS: She is a nondrinker and nonsmoker. No use of illicit drugs. SYSTEM REVIEW: HEENT: There is mild decreased visual acuity. Hearing is good. ENDOCRINE: History of glucose intolerance when on the steroids in the past. Currently, normal. No thyroid disease. PULMONARY: No asthma, TB, or chronic cough. CARDIAC: History of permanent pacemaker, hypertensive heart disease, and prior DVT. GASTROINTESTINAL: She is currently having abdominal pain and diarrhea. She has had intermittent constipation in the past. She has had prior gastrointestinal workups. GENITOURINARY: She is complaining of dysuria at this time. There is no kidney stones. NEUROLOGIC: No CVA or seizures. MUSCULOSKELETAL: She has chronic pain. PHYSICAL EXAMINATION: GENERAL: The patient is an alert lady, chronically ill-appearing, but in no acute distress. VITAL SIGNS: The temperature 98.4, blood pressure 147/76, pulse ox 100, heart rate 83, and respirations 18. HEAD, EYES, EARS, NOSE, AND THROAT: Oral mucosa is moist. Sclerae nonicteric. Ocular motions intact in all directions. NECK: No adenopathy. LUNGS: Clear. HEART: Regular rhythm. No murmur. ABDOMEN: Soft. Mild generalized tenderness. The kidney transplant is in the right lower quadrant. Mildly tender. EXTREMITIES: No edema, cyanosis, or clubbing. There is a right below-knee amputation. Toes amputation on the left. NEUROLOGIC: She is alert and responsive. Cranial nerves are intact. No focal findings. PERTINENT LABS: Show white count of 6.6 and hemoglobin is 9.5. Electrolytes normal. BUN 12, creatinine 0.9, and glucose 202. Liver enzymes normal. Albumin 3.8. UA pending. IMPRESSION: 1. Kidney transplant status, stable on current immunosuppression. 2. Abdominal pain. CT scan pending, noncontrast. 3. rectal bleeding. 4. Chronic pain syndrome. 5. Prior hyperkalemia. 6. Peripheral vascular disease. 7. Hypertension. PLAN: The patient should be hydrated while undergoing gastrointestinal evaluations. Continue on transplant medications and we will await results of her gastrointestinal studies. Kade Cochran M.D. DR: SHANON JOB#: [id number] CC:
[2019-03-10 23:36] LABS: APPEARANCE,URINE SLIGHTLY CLOUDY; BILIRUBIN, URINE NEGATIVE (NEGATIVE); COLOR,URINE PALE YELLOW; GLUCOSE, URINE (UA) NEGATIVE (NEGATIVE); KETONES,URINE NEGATIVE (NEGATIVE); LEUKOCYTE ESTERASE ,URINE 3+ (NEGATIVE); NITRITE,URINE POSITIVE (NEGATIVE); PH,URINE 5 (4.5-8.0); PROTEIN,URINE 2+ (NEGATIVE); UROBILINOGEN,URINE NORMAL MG/DL (0.0-1.0)
[2019-03-11] VITALS (7 sets, daily range): BP systolic 122–160; BP diastolic 63–85
[2019-03-11] MEDS: HYDROcodone/Acetamin 10/325 tab ORAL PRN ×2 (01:16→19:31)
[2019-03-11] MEDS: HydrALAZINE 25mg tab ORAL SCH ×3 (06:09→21:34)
[2019-03-11 06:45] LABS: BASOPHILS % (AUTO) 1.5 % (0.0-2.0); EOSINOPHILS % (AUTO) 1.2 % (0.0-3.0); HEMATOCRIT 27.8 % (37.0-47.0); LYMPHOCYTES % (AUTO) 30.4 % (20.0-45.0); MEAN CORPUSCULAR VOLUME 102 FL (80-99); MONOCYTES % (AUTO) 7.5 % (1.0-10.0); NEUTROPHILS % (AUTO) 59.4 % (45.0-75.0); PLATELET COUNT 197 K/UL (150-450); RED BLOOD COUNT 2.72 M/UL (4.20-5.40); WHITE BLOOD COUNT 4.6 K/UL (4.8-10.8)
[2019-03-11 07:11] LABS: ALANINE AMINOTRANSFERASE 10 U/L (12-78); ALBUMIN 2.6 G/DL (3.4-5.0); ALBUMIN/GLOBULIN RATIO 0.6 (1.0-2.7); ALKALINE PHOSPHATASE 87 U/L (46-116); ANION GAP 8 mmol/L (5-15); ASPARTATE AMINO TRANSFERASE 13 U/L (15-37); BILIRUBIN,TOTAL 0.5 MG/DL (0.2-1.0); BLOOD UREA NITROGEN 11 mg/dL (7-18); CALCIUM 9.1 MG/DL (8.5-10.1); CARBON DIOXIDE 26 MMOL/L (21-32); CHLORIDE 105 MMOL/L (98-107); POTASSIUM 3.9 MMOL/L (3.5-5.1); SODIUM 139 MMOL/L (136-145)
--- NOTE | 2019-03-11 07:21 | General Progress Note ---
Assessment/Plan Problem List: (1) Diastolic CHF with preserved left ventricular function, NYHA class 2 ICD Codes: I50.30 - Unspecified diastolic (congestive) heart failure SNOMED: 614411187, 975727451, 701195838, [id number] (2) Syncopal episodes ICD Codes: R55 - Syncope and collapse SNOMED: 744772325 (3) Chest pain ICD Codes: R07.9 - Chest pain, unspecified SNOMED: 62705263 (4) Diarrhea ICD Codes: R19.7 - Diarrhea SNOMED: 37841048 (5) Colitis ICD Codes: K52.9 - Colitis SNOMED: 487856216 (6) GIB (gastrointestinal bleeding) ICD Codes: K92.2 - Gastrointestinal hemorrhage, unspecified SNOMED: 18080911 (7) Abdominal pain ICD Codes: R10.9 - Abdominal pain SNOMED: 41169597 Status: stable, progressing Assessment/Plan: abx follow up cultures follow up ct pain rx transplant meds per renal BP rx skin care requests snf placement Subjective ROS Limited/Unobtainable: No Constitutional: Reports: malaise, weakness HEENT: Reports: no symptoms Cardiovascular: Reports: no symptoms Respiratory: Reports: no symptoms Gastrointestinal/Abdominal: Reports: abdominal pain Genitourinary: Reports: no symptoms Neurologic/Psychiatric: Reports: no symptoms Endocrine: Reports: no symptoms Hematologic/Lymphatic: Reports: no symptoms Allergies: Coded Allergies: No Known Allergies (Verified , 05/29/09) All Systems: reviewed and negative except above Subjective still with abd pain. ct completed. no results. no fever or chills. denies bleeding. Objective Last 24 Hour Vital Signs Date Time Temp Pulse Resp B/P (MAP) Pulse Ox O2 Delivery O2 Flow Rate FiO2 03/11/19 06:09 141/72 03/11/19 04:00 97.8 87 18 141/72 (95) 99 03/11/19 00:00 98.3 81 18 122/63 (82) 98 03/10/19 22:40 117/56 03/10/19 21:00 Room Air 03/10/19 20:55 84 137/74 03/10/19 20:00 98.5 84 19 137/74 (95) 99 03/10/19 16:00 97.7 88 19 132/73 (92) 98 03/10/19 14:52 143/74 03/10/19 12:00 98.4 83 18 147/76 (99) 100 03/10/19 09:20 Room Air 03/10/19 09:02 87 136/82 03/10/19 08:59 87 136/82 03/10/19 08:31 97.9 87 18 136/82 (100) 99 Intake and Output 03/10/19 03/11/19 19:00 07:00 Intake Total 685 ml 825 ml Output Total 200 ml Balance 685 ml 625 ml Intake Oral 460 ml IV Total 225 ml 825 ml Output Urine Total 200 ml # Voids 3 Laboratory Tests 03/10/19 22:50: Urine Color Pale yellow, Urine Appearance Slightly cloudy, Urine pH 5, Urine Specific [place] 1.005, Urine Protein 2+H, Urine Glucose (UA) Negative, Urine Ketones Negative, Urine Blood 1+H, Urine Nitrite PositiveH, Urine Bilirubin Negative, Urine Urobilinogen Normal, Urine Leukocyte Esterase 3+H, Urine RBC 0-2 , Urine WBC TntcH, Urine Squamous Epithelial Cells Few, Urine Bacteria ModerateH 03/11/19 05:45: White Blood Count 4.6L, Red Blood Count 2.72L, Hemoglobin 9.0L, Hematocrit 27.8L , Mean Corpuscular Volume 102H, Mean Corpuscular Hemoglobin 33.2H, Mean Corpuscular Hemoglobin Concent 32.5, Red Cell Distribution Width 14.0, Platelet Count 197, Mean Platelet Volume 8.4, Neutrophils (%) (Auto) 59.4, Lymphocytes (% ) (Auto) 30.4, Monocytes (%) (Auto) 7.5, Eosinophils (%) (Auto) 1.2, Basophils ( %) (Auto) 1.5, Sodium Level 139, Potassium Level 3.9, Chloride Level 105, Carbon Dioxide Level 26, Anion Gap 8, Blood Urea Nitrogen 11, Creatinine 1.0, Estimat Glomerular Filtration Rate , Glucose Level 127H, Calcium Level 9.1, Total Bilirubin 0.5, Aspartate Amino Transf (AST/SGOT) 13L, Alanine Aminotransferase (ALT/SGPT) 10L, Alkaline Phosphatase 87, Total Protein 7.1, Albumin 2.6L, Globulin 4.5, Albumin/Globulin Ratio 0.6L Height (Feet): 5 Height (Inches): 6.00 Weight (Pounds): 180 General Appearance: WD/WN, alert Neck: supple Cardiovascular: normal rate Respiratory/Chest: chest wall non-tender, lungs clear, normal breath sounds Abdomen: normal bowel sounds, non tender, soft, no organomegaly Edema: no edema noted Arm (L), no edema noted Arm (R), no edema noted Leg (L), no edema noted Leg (R), no edema noted Pedal (L), no edema noted Pedal (R), no edema noted 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
--- NOTE | 2019-03-11 08:48 | Nephrology Progress Note ---
Assessment/Plan Problem List: (1) Urinary tract infection (2) Hypoalbuminemia due to protein-calorie malnutrition (3) Kidney transplanted (4) Diastolic CHF with preserved left ventricular function, NYHA class 2 (5) GIB (gastrointestinal bleeding) (6) Abdominal pain Plan feels better, still dysuria, empiric atb Subjective Constitutional: Reports: weakness HEENT: Reports: no symptoms Genitourinary: Reports: burning Neurologic/Psychiatric: Reports: no symptoms Objective Objective Last 24 Hour Vital Signs Date Time Temp Pulse Resp B/P (MAP) Pulse Ox O2 Delivery O2 Flow Rate FiO2 03/11/19 06:09 141/72 03/11/19 04:00 97.8 87 18 141/72 (95) 99 03/11/19 00:00 98.3 81 18 122/63 (82) 98 03/10/19 22:40 117/56 03/10/19 21:00 Room Air 03/10/19 20:55 84 137/74 03/10/19 20:00 98.5 84 19 137/74 (95) 99 03/10/19 16:00 97.7 88 19 132/73 (92) 98 03/10/19 14:52 143/74 03/10/19 12:00 98.4 83 18 147/76 (99) 100 03/10/19 09:20 Room Air 03/10/19 09:02 87 136/82 03/10/19 08:59 87 136/82 Intake and Output 03/10/19 03/11/19 19:00 07:00 Intake Total 685 ml 825 ml Output Total 200 ml Balance 685 ml 625 ml Intake Oral 460 ml IV Total 225 ml 825 ml Output Urine Total 200 ml # Voids 3 Laboratory Tests 03/10/19 22:50: Urine Color Pale yellow, Urine Appearance Slightly cloudy, Urine pH 5, Urine Specific [place] 1.005, Urine Protein 2+H, Urine Glucose (UA) Negative, Urine Ketones Negative, Urine Blood 1+H, Urine Nitrite PositiveH, Urine Bilirubin Negative, Urine Urobilinogen Normal, Urine Leukocyte Esterase 3+H, Urine RBC 0-2 , Urine WBC TntcH, Urine Squamous Epithelial Cells Few, Urine Bacteria ModerateH 03/11/19 05:45: White Blood Count 4.6L, Red Blood Count 2.72L, Hemoglobin 9.0L, Hematocrit 27.8L , Mean Corpuscular Volume 102H, Mean Corpuscular Hemoglobin 33.2H, Mean Corpuscular Hemoglobin Concent 32.5, Red Cell Distribution Width 14.0, Platelet Count 197, Mean Platelet Volume 8.4, Neutrophils (%) (Auto) 59.4, Lymphocytes (% ) (Auto) 30.4, Monocytes (%) (Auto) 7.5, Eosinophils (%) (Auto) 1.2, Basophils ( %) (Auto) 1.5, Sodium Level 139, Potassium Level 3.9, Chloride Level 105, Carbon Dioxide Level 26, Anion Gap 8, Blood Urea Nitrogen 11, Creatinine 1.0, Estimat Glomerular Filtration Rate , Glucose Level 127H, Calcium Level 9.1, Total Bilirubin 0.5, Aspartate Amino Transf (AST/SGOT) 13L, Alanine Aminotransferase (ALT/SGPT) 10L, Alkaline Phosphatase 87, Total Protein 7.1, Albumin 2.6L, Globulin 4.5, Albumin/Globulin Ratio 0.6L Height (Feet): 5 Height (Inches): 6.00 Weight (Pounds): 180 General Appearance: no apparent distress, alert EENT: normal ENT inspection Neck: non-tender Cardiovascular: normal rate, regular rhythm Respiratory/Chest: lungs clear Abdomen: other - mild generalized tender including over grafgt Extremities: other - no edema, bka 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
[2019-03-11] MEDS: Fluconazole 100mg tab ORAL SCH (09:59)
[2019-03-11] MEDS: cycloSPORINE 100mg cap ORAL SCH ×2 (10:00→21:34)
[2019-03-11] MEDS: Xarelto 10mg tab ORAL SCH (10:00)
[2019-03-11] MEDS: azaTHIOprine 50 MG TAB ORAL SCH (10:00)
[2019-03-11] MEDS: Piperacillin/Tazobactam 3.375 GM in NS 110 ML IVPB SCH ×2 (11:37→19:32)
--- NOTE | 2019-03-11 17:46 | Diagnostic Imaging Report ---
Indication: Abdominal pain Technique: Continuous helical transaxial imaging of the abdomen and pelvis was obtained from the lung bases to the pubic symphysis. No intravenous contrast was administered. Coronal 2-D reformats were also obtained. Automatic Exposure Control was utilized. Total Dose length Product (DLP): 675.[address] Dose Index Volume (CTDIvol): 12.77 mGy Comparison: 07/21/2018 Findings: Slightly nodular density in the lingula is likely inflammatory such as rounded atelectasis. There is a well-circumscribed pneumatocele at the left lung base. Minimal basal atelectasis noted. Cardiomegaly is present. Aorta is calcified. Pacemaker is noted. Hiatal hernia demonstrated. Cholecystectomy clips are present. There is slight nodularity of the adrenal glands bilaterally. The kidneys are markedly atrophic. There are calcifications centrally which are probably small nonobstructive stones. Suggestion of multiple small cysts as well within both kidneys. The appendix is seen and appears normal. There is a transplanted kidney in the right iliac fossa demonstrated. Mild pelvocaliectasis of the transplanted kidney is noted with hydroureter. The ureter inserts along the anterior aspect of the urinary bladder. The appearance was similar on the prior occasion with the hydroureteronephrosis seen on the exam from 07/21/2018. Please correlate with renal function. Just superficial to the transplanted kidney there is a scar present which likely represents area of incision. There is an associated well-circumscribed cystic focus within the subcutaneous fat measuring about 2.5 cm in diameter likely a postoperative seroma. This was noted on the prior occasion and is unchanged. Bilateral inguinal hernias containing fat demonstrated. There is an umbilical hernia containing fat measuring about 3.6 cm. Bowel gas pattern is nonobstructive. Diverticula noted within the colon without evidence of diverticulitis. Pancreas is relatively atrophic. There is no free fluid or free air. Subcutaneous reticulation noted diffusely within the abdominal wall. Evidence of previous right femoral arterial bypass graft. Bones are osteopenic. 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 This persists compared to the previous study from 07/21/2018. There is no obstructing lesion identified. Thickening of the urinary bladder wall is present a be due to cystitis. Please correlate with the renal function assessment. Incisional seroma in the right lower quadrant unchanged from last examination. Bilateral inguinal hernias containing fat Umbilical hernia containing fat Diverticulosis of the colon. Other findings as above described above The CT scanner at [facility] is accredited by the [employer] and the scans are performed using dose optimization techniques as appropriate to a performed exam including Automatic Exposure control.
--- NOTE | 2019-03-11 22:15 | Consultation ---
DATE OF CONSULTATION: 03/09/2019 CARDIOLOGY CONSULTATION Late entry for 03/09/2019 CONSULTING PHYSICIAN: Matthew Tinajero M.D. REQUESTING PHYSICIAN: John Red M.D. REASON FOR CONSULTATION: Weakness and dizziness is the setting of permanent pacemaker. HISTORY OF PRESENT ILLNESS: This is an 79-year-old female with multiple medical problems, has a permanent pacemaker. She also has been on anticoagulation in the past for DVT. She presented to the hospital after several days of abdominal pain complicated by bloody stool. She also noted dizziness, lightheadedness, and the feeling of passing out although did not. She does not recall when her last pacemaker interrogation was performed. Due to her debility, she has limited capacity to come into my office. PAST MEDICAL HISTORY: 1. Renal transplant. 2. Right BKA. 3. Severe peripheral artery disease. 4. Type 2 diabetes mellitus. 5. Chronic kidney disease. 6. Hypertension with hypertensive heart disease. 7. Diabetic neuropathy. 8. Permanent pacemaker. 9. Failed dialysis access in the past. 10. Toe amputations on the left. 11. Recurring urinary tract infections and chronic cystitis. 12. 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 MEDICATIONS: Prior to admission, reviewed and reconciled. ALLERGIES: None. FAMILY HISTORY: Noncontributory. SOCIAL HISTORY: Positive for smoking. No alcohol or substance abuse. REVIEW OF SYSTEMS: Tactile fevers. No chills. No history of retinopathy, but her vision is poor and her hearing is impaired. She has had seizures, but none since 2011. She has had multi-infarct disease. She has chronic pain due to arthritis and neuropathy. Her diabetes is managed with oral therapies and diet and at times, sliding scale insulin. There is no history of thyroid disorder. She has been on anticoagulation in the past. An outpatient echocardiogram done last year revealed normal ejection fraction with concentric hypertrophy and no signs of pulmonary hypertension. 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 PHYSICAL EXAM: GENERAL: Awake and alert, but ill appearing. VITAL SIGNS: Blood pressure 166/71, heart rate 91, respirations 20, and afebrile. HEENT: Temporal wasting. Arcus senilis. Oropharynx clear. Mucous membranes moist. NECK: Supple. No jugular venous distention. LUNGS: Clear. CARDIAC: Regular rhythm and rate. Normal S1, S2 with a fourth heart sound. ABDOMEN: Soft. Mild tenderness in the midepigastric region. No guarding or rebound. EXTREMITIES: No clubbing or cyanosis. No edema. Left foot toe amputations. Right BKA. No open skin wounds seen. LABORATORY DATA: Reviewed. Notable for white count 9 and hemoglobin 10.4. Potassium 4.3, BUN 12, creatinine 0.9, glucose 202, and albumin 3.1 with lactic acid of 1.7. Urinalysis is pending. IMPRESSION: 1. Gastrointestinal bleeding. 2. Near syncope due to acute blood loss. 3. Hypertensive heart disease. 4. Permanent pacemaker. 5. Chronic diastolic congestive heart failure. 6. Type 2 diabetes mellitus with multiple complications. 7. Peripheral artery disease with amputation. 8. History of renal transplant, on immunosuppressive therapy. 9. Probably urinary tract infection with sepsis. PLAN: 1. Serial hemoglobin. 2. Hold anti-platelet and anticoagulants. 3. Check urinalysis. 4. Initiate antibiotics as needed. 5. Titrate antihypertensives with hold parameters in view of bleeding risk at this time. 6. Pacemaker interrogation will be arranged. Matthew Tinajero M.D. DR: LALY JOB#: [id number] CC:
[2019-03-12] VITALS: BP 115/57
[2019-03-12] MEDS: Piperacillin/Tazobactam 3.375 GM in NS 110 ML IVPB SCH ×3 (01:03→16:56)
[2019-03-12 04:00] VITALS: BP 111/53
[2019-03-12] MEDS: HydrALAZINE 25mg tab ORAL SCH ×3 (06:13→21:09)
[2019-03-12 08:00] VITALS: BP 115/55
[2019-03-12] MEDS: azaTHIOprine 50 MG TAB ORAL SCH (09:03)
[2019-03-12] MEDS: Fluconazole 100mg tab ORAL SCH (09:03)
[2019-03-12] MEDS: cycloSPORINE 100mg cap ORAL SCH ×2 (09:03→21:10)
[2019-03-12] MEDS: Xarelto 10mg tab ORAL SCH (09:03)
--- NOTE | 2019-03-12 10:02 | Nephrology Progress Note ---
Assessment/Plan Problem List: (1) Urinary tract infection (2) Hypoalbuminemia due to protein-calorie malnutrition (3) Kidney transplanted (4) Diastolic CHF with preserved left ventricular function, NYHA class 2 (5) GIB (gastrointestinal bleeding) (6) Abdominal pain (7) Hydronephrosis Plan feels better, still dysuria, empiric atb, hydronephrosis likely from neurogenic bladder, creatinine stable, observe Subjective Constitutional: Reports: weakness HEENT: Reports: no symptoms Genitourinary: Reports: incontinence Neurologic/Psychiatric: Reports: pre-existing deficit Objective Objective Last 24 Hour Vital Signs Date Time Temp Pulse Resp B/P (MAP) Pulse Ox O2 Delivery O2 Flow Rate FiO2 03/12/19 09:03 82 140/62 03/12/19 09:03 82 140/62 03/12/19 09:00 Room Air 03/12/19 08:00 98.6 79 18 115/55 (75) 97 03/12/19 06:13 140/62 03/12/19 04:00 98.2 82 18 111/53 (72) 96 03/12/19 00:00 97.7 82 18 115/57 (76) 98 03/11/19 21:34 160/75 03/11/19 21:34 76 160/75 03/11/19 21:00 Room Air 03/11/19 20:01 98.0 03/11/19 20:00 99.1 76 19 160/75 (103) 99 03/11/19 16:00 98.0 77 20 134/69 (90) 98 03/11/19 15:04 137/68 03/11/19 12:00 97.9 84 18 143/85 (104) 100 Intake and Output 03/11/19 03/12/19 19:00 07:00 Intake Total 1620 ml 360 ml Output Total 940 ml 600 ml Balance 680 ml -240 ml Intake Oral 720 ml 360 ml IV Total 900 ml Output Urine Total 940 ml 600 ml # Voids 2 2 Height (Feet): 5 Height (Inches): 6.00 Weight (Pounds): 180 General Appearance: no apparent distress, alert EENT: normal ENT inspection Neck: normal alignment Cardiovascular: regular rhythm Respiratory/Chest: lungs clear Abdomen: tender, other - mild generalized Extremities: other - bka Kade Cochran MD Mar 12, 2019 10:02
--- NOTE | 2019-03-12 10:25 | General Progress Note ---
Assessment/Plan Problem List: (1) Diastolic CHF with preserved left ventricular function, NYHA class 2 ICD Codes: I50.30 - Unspecified diastolic (congestive) heart failure SNOMED: 853932915, 170380525, 228081570, 659699590 (2) Syncopal episodes ICD Codes: R55 - Syncope and collapse SNOMED: 466036759 (3) Chest pain ICD Codes: R07.9 - Chest pain, unspecified SNOMED: 72819390 (4) Diarrhea ICD Codes: R19.7 - Diarrhea SNOMED: 81650045 (5) Colitis ICD Codes: K52.9 - Colitis SNOMED: 334721544 (6) GIB (gastrointestinal bleeding) ICD Codes: K92.2 - Gastrointestinal hemorrhage, unspecified SNOMED: 80936929 (7) Abdominal pain ICD Codes: R10.9 - Abdominal pain SNOMED: 12742864 Status: stable, progressing Assessment/Plan: abx cultures noted eval pain rx transplant meds per renal BP rx skin care requests snf placement Subjective ROS Limited/Unobtainable: No Constitutional: Reports: malaise, weakness HEENT: Reports: no symptoms Cardiovascular: Reports: no symptoms Respiratory: Reports: no symptoms Gastrointestinal/Abdominal: Reports: abdominal pain Genitourinary: Reports: burning Neurologic/Psychiatric: Reports: no symptoms Endocrine: Reports: no symptoms Hematologic/Lymphatic: Reports: anemia Allergies: Coded Allergies: No Known Allergies (Verified , 05/29/09) All Systems: reviewed and negative except above Subjective still with abd pain. ct completed. no results. no fever or chills. denies bleeding. CT with hydronephrosis Objective Last 24 Hour Vital Signs Date Time Temp Pulse Resp B/P (MAP) Pulse Ox O2 Delivery O2 Flow Rate FiO2 03/12/19 09:03 82 140/62 03/12/19 09:03 82 140/62 03/12/19 09:00 Room Air 03/12/19 08:00 98.6 79 18 115/55 (75) 97 03/12/19 06:13 140/62 03/12/19 04:00 98.2 82 18 111/53 (72) 96 03/12/19 00:00 97.7 82 18 115/57 (76) 98 03/11/19 21:34 160/75 03/11/19 21:34 76 160/75 03/11/19 21:00 Room Air 03/11/19 20:01 98.0 03/11/19 20:00 99.1 76 19 160/75 (103) 99 03/11/19 16:00 98.0 77 20 134/69 (90) 98 03/11/19 15:04 137/68 03/11/19 12:00 97.9 84 18 143/85 (104) 100 Intake and Output 03/11/19 03/12/19 19:00 07:00 Intake Total 1620 ml 360 ml Output Total 940 ml 600 ml Balance 680 ml -240 ml Intake Oral 720 ml 360 ml IV Total 900 ml Output Urine Total 940 ml 600 ml # Voids 2 2 Height (Feet): 5 Height (Inches): 6.00 Weight (Pounds): 180 General Appearance: WD/WN, alert Neck: supple Cardiovascular: regular rhythm Respiratory/Chest: chest wall non-tender, lungs clear, normal breath sounds, no respiratory distress, no accessory muscle use Abdomen: normal bowel sounds, soft, no organomegaly, no mass, tender Edema: no edema noted Arm (L), no edema noted Arm (R), no edema noted Leg (L), no edema noted Leg (R), no edema noted Pedal (L), no edema noted Pedal (R), no edema noted Generalized Neurologic: application lead II-XII grossly normal, no motor/sensory deficits, abnormal gait Skin: normal pigmentation, warm/dry John Red MD Mar 12, 2019 10:25
[2019-03-12 12:00] VITALS: BP 103/68
[2019-03-12] MEDS: HYDROcodone/Acetamin 10/325 tab ORAL PRN ×2 (13:08→21:09)
--- NOTE | 2019-03-12 14:45 | Consultation ---
DATE OF CONSULTATION: 03/12/2019 CONSULTING PHYSICIAN: Andrés Guillory M.D. REFERRING PHYSICIAN: John Red M.D. REASON FOR CONSULTATION: Evaluation of hydronephrosis. HISTORY OF PRESENT ILLNESS: This is an 79-year-old female. She is known to me from previous evaluations. The patient was admitted to the hospital because of abdominal pain. She does have a history of renal transplant and on CT scan, there was hydronephrosis noted in the transplanted kidney. The patient's abdominal pain is actually better. She does have urinary incontinence. Apparently, the hydronephrosis of transplanted kidney is chronic. PAST MEDICAL HISTORY: Significant for above, also history of hypertension, DVT. PAST SURGICAL HISTORY: She has had a kidney transplant. She has had a right BKA, toe amputation. MEDICATIONS: Current medications here in the hospital, the patient is on Zosyn, Levaquin, dextrose, Xarelto, Remeron, Norvasc, , Coreg, Diflucan, Lasix, , and Protonix. ALLERGIES: No known drug allergies. SOCIAL HISTORY: The patient is currently nonsmoker. REVIEW OF SYSTEMS: As above. FAMILY HISTORY: Noncontributory. PHYSICAL EXAMINATION: GENERAL: An elderly female, no acute distress. VITAL SIGNS: Temperature is 98.6, blood pressure is 115/55, pulse 79, respirations 18. HEENT: Normocephalic. NECK: Supple. ABDOMEN: Soft, nontender, nondistended. LABORATORY DATA: UA on admit showed 2+ protein, positive nitrite, too numerous to count wbc's, and moderate bacteria. White count is 4.6, hemoglobin 9.0, and platelets are 197. BUN is 11, creatinine 1.0, and potassium 3.9. DIAGNOSTIC IMAGING STUDIES: The patient had a CT scan of the abdomen and pelvis. CT showed mention of [id number] hydronephrosis of transplanted kidney, which is chronic, which was present last year also. There was atrophy of the algaaciq kidneys with small cysts and small stones in the algaaciq kidney. IMPRESSION: 1. Abdominal pain history, which is improved. 2. Hydronephrosis of transplanted kidney, which is chronic. 3. Urinary incontinence. 4. Probable neurogenic bladder. 5. UTI. 6. Hematuria. 7. Proteinuria. 8. Renal atrophy. 9. Nephrolithiasis. 10. Renal cyst. PLAN AND DISCUSSION: As noted above, the patient does have hydronephrosis in the transplanted kidney, which is chronic. This may be secondary to reflux and neurogenic bladder. Her renal function is stable. At this time, I think this can be managed conservatively. I will order a bladder scan to make sure she does not hold the urine back and if so she may need to have an indwelling Gonzalez and at some point, we can consider cystogram with retrograde study or possibly a nuclear renal scan with Lasix washout for further evaluation. Thank you for this consultation. Andrés Guillory M.D. DR: ANJUM JOB#: [id number] CC:
[2019-03-12 16:00] VITALS: BP 126/61
[2019-03-12 20:00] VITALS: BP 128/67
[2019-03-13] VITALS (7 sets, daily range): BP systolic 115–144; BP diastolic 59–71
[2019-03-13] MEDS: Piperacillin/Tazobactam 3.375 GM in NS 110 ML IVPB SCH ×3 (02:36→17:02)
[2019-03-13] MEDS: HydrALAZINE 25mg tab ORAL SCH ×3 (05:16→22:12)
[2019-03-13] MEDS: HYDROcodone/Acetamin 10/325 tab ORAL PRN (05:16)
[2019-03-13] MEDS: cycloSPORINE 100mg cap ORAL SCH ×2 (08:17→21:02)
[2019-03-13] MEDS: Fluconazole 100mg tab ORAL SCH (08:17)
[2019-03-13] MEDS: azaTHIOprine 50 MG TAB ORAL SCH (08:17)
[2019-03-13] MEDS: Xarelto 10mg tab ORAL SCH (08:18)
--- NOTE | 2019-03-13 09:30 | Urology Progress Note ---
Assessment/Plan Status: stable, progressing Assessment/Plan: 1. Abdominal pain history, which is improved. 2. Hydronephrosis of transplanted kidney, which is chronic. 3. Urinary incontinence/retention. 4. Probable neurogenic bladder. 5. UTI. 6. Hematuria. 7. Proteinuria. 8. Renal atrophy. 9. Nephrolithiasis. 10. Renal cyst. monitor clinically morin now indwelling hand irrigated and do PRN on abx consider holding remeron, or add flomax? cysto later recheck renal u/s later after morin drainage Subjective Allergies: Coded Allergies: No Known Allergies (Verified , 05/29/09) Subjective all noted, morin placed Objective Last 24 Hour Vital Signs Date Time Temp Pulse Resp B/P (MAP) Pulse Ox O2 Delivery O2 Flow Rate FiO2 03/13/19 09:00 Room Air 03/13/19 08:18 85 144/65 03/13/19 08:17 85 144/65 03/13/19 08:00 97.0 85 18 144/65 (91) 99 03/13/19 05:46 97.3 03/13/19 05:16 131/70 03/13/19 04:00 97.3 90 18 131/70 (90) 99 03/13/19 00:00 97.1 81 18 115/59 (77) 99 03/12/19 23:39 Room Air 03/12/19 21:09 126/61 03/12/19 21:09 88 126/61 03/12/19 20:00 97.7 79 18 128/67 (87) 99 03/12/19 16:00 98.7 88 18 126/61 (82) 99 03/12/19 13:07 140/62 03/12/19 12:00 97.0 82 18 103/68 (80) 99 Intake and Output 03/12/19 03/13/19 19:00 07:00 Intake Total 1252.5 ml 1627.5 ml Output Total 1000 ml Balance 1252.5 ml 627.5 ml Intake Oral 1000 ml 1000 ml IV Total 252.5 ml 627.5 ml Output Urine Total 1000 ml # Voids 4 1 # Bowel Movements 1 Microbiology Date/Time Source Procedure Growth Status 03/09/19 21:40 Nasal Nares MRSA Culture - Final Staphylococcus Aureus - Mrsa Complete 03/09/19 11:40 Stool Clostridium difficile Toxin Assay - Final Complete 03/10/19 22:50 Urine,Clean Catch Urine Culture - Final Mixed Gram Positive Organism Complete 03/09/19 21:40 Rectum - Final NO CARBAPENEM-RESISTANT ENTEROBACTERI... Complete Current Medications Medications (Trade) Dose Ordered Sig/Toya Route PRN Reason Start Time Stop Time Status Last Admin Dose Admin Acetaminophen/ Hydrocodone Bitart ([place] 10/325) 1 tab Q8H PRN ORAL For Pain 03/09/19 18:00 03/16/19 17:59 03/13/19 05:16 Amlodipine Besylate (Norvasc) 5 mg DAILY ORAL 03/09/19 17:00 04/08/19 16:59 03/13/19 08:18 Azathioprine (Imuran) 75 mg DAILY ORAL 03/09/19 17:00 04/08/19 16:59 03/13/19 08:17 Carvedilol (Coreg) 3.125 mg EVERY 12 HOURS ORAL 03/09/19 17:00 04/08/19 16:59 03/13/19 08:17 Cyclosporine (Neoral) 100 mg Q12HR ORAL 03/09/19 18:00 04/08/19 17:59 03/13/19 08:17 Dextrose 1,000 ml @ 75 mls/hr [id number] IV 03/10/19 15:19 04/09/19 15:18 03/12/19 06:14 Fluconazole (Diflucan) 100 mg DAILY ORAL 03/09/19 17:00 03/16/19 16:59 03/13/19 08:17 Fludrocortisone Acetate (Florinef) 0.1 mg DAILY ORAL 03/09/19 17:00 04/08/19 16:59 03/13/19 08:18 Furosemide (Lasix) 20 mg DAILYPRN PRN ORAL Water/Fluid 03/09/19 17:00 04/08/19 16:59 Hydralazine HCl (Apresoline) 25 mg EVERY 8 HOURS ORAL 03/09/19 17:00 04/08/19 16:59 03/13/19 05:16 Mirtazapine (Remeron) 15 mg BEDTIME ORAL 03/09/19 21:00 04/08/19 20:59 03/12/19 21:09 Pantoprazole (Protonix) 40 mg DAILY ORAL 03/09/19 17:00 04/08/19 16:59 03/13/19 08:18 Piperacillin Sod/ Tazobactam Sod 3.375 gm/Sodium Chloride 110 ml @ 27.5 mls/hr Q8H IVPB 03/11/19 10:00 03/18/19 09:59 03/13/19 02:36 Rivaroxaban (Xarelto) 10 mg DAILY ORAL 03/10/19 09:00 04/09/19 08:59 03/13/19 08:18 Height (Feet): 5 Height (Inches): 6.00 Weight (Pounds): 180 Objective exam stable, grossly yellow urine, occasional debris Andrés Guillory MD Mar 13, 2019 09:30
--- NOTE | 2019-03-13 11:43 | General Progress Note ---
Assessment/Plan Problem List: (1) Diastolic CHF with preserved left ventricular function, NYHA class 2 ICD Codes: I50.30 - Unspecified diastolic (congestive) heart failure SNOMED: 050272659, 229753846, 771051119, 814268769 (2) Syncopal episodes ICD Codes: R55 - Syncope and collapse SNOMED: 781774424 (3) Chest pain ICD Codes: R07.9 - Chest pain, unspecified SNOMED: 66321714 (4) Diarrhea ICD Codes: R19.7 - Diarrhea SNOMED: 46757019 (5) Colitis ICD Codes: K52.9 - Colitis SNOMED: 283451564 (6) GIB (gastrointestinal bleeding) ICD Codes: K92.2 - Gastrointestinal hemorrhage, unspecified SNOMED: 49383260 (7) Abdominal pain ICD Codes: R10.9 - Abdominal pain SNOMED: 87501253 Status: stable, progressing Assessment/Plan: abx cultures noted eval appreciated pain rx transplant meds per renal BP rx skin care requests snf placement. Subjective ROS Limited/Unobtainable: No Constitutional: Reports: malaise, weakness HEENT: Reports: no symptoms Cardiovascular: Reports: no symptoms Respiratory: Reports: no symptoms Gastrointestinal/Abdominal: Reports: abdominal pain Genitourinary: Reports: no symptoms Neurologic/Psychiatric: Reports: anxiety, depressed Endocrine: Reports: no symptoms Hematologic/Lymphatic: Reports: anemia Allergies: Coded Allergies: No Known Allergies (Verified , 05/29/09) All Systems: reviewed and negative except above Subjective still with abd pain. noted. urine culture noted. Objective Last 24 Hour Vital Signs Date Time Temp Pulse Resp B/P (MAP) Pulse Ox O2 Delivery O2 Flow Rate FiO2 03/13/19 09:00 Room Air 03/13/19 08:18 85 144/65 03/13/19 08:17 85 144/65 03/13/19 08:00 97.0 85 18 144/65 (91) 99 03/13/19 05:46 97.3 03/13/19 05:16 131/70 03/13/19 04:00 97.3 90 18 131/70 (90) 99 03/13/19 00:00 97.1 81 18 115/59 (77) 99 03/12/19 23:39 Room Air 03/12/19 21:09 126/61 03/12/19 21:09 88 126/61 03/12/19 20:00 97.7 79 18 128/67 (87) 99 03/12/19 16:00 98.7 88 18 126/61 (82) 99 03/12/19 13:07 140/62 03/12/19 12:00 97.0 82 18 103/68 (80) 99 Intake and Output 03/12/19 03/13/19 19:00 07:00 Intake Total 1252.5 ml 1627.5 ml Output Total 1000 ml Balance 1252.5 ml 627.5 ml Intake Oral 1000 ml 1000 ml IV Total 252.5 ml 627.5 ml Output Urine Total 1000 ml # Voids 4 1 # Bowel Movements 1 Height (Feet): 5 Height (Inches): 6.00 Weight (Pounds): 180 Objective General Appearance: WD/WN, alert Neck: supple Cardiovascular: regular rhythm Respiratory/Chest: chest wall non-tender, lungs clear, normal breath sounds, no respiratory distress, no accessory muscle use Abdomen: normal bowel sounds, soft, no organomegaly, no mass, tender Edema: no edema noted Arm (L), no edema noted Arm (R), no edema noted Leg (L), no edema noted Leg (R), no edema noted Pedal (L), no edema noted Pedal (R), no edema noted Generalized Neurologic: sleeve setter lockstitch II-XII grossly normal, no motor/sensory deficits, abnormal gait Skin: normal pigmentation, warm/dry John Red MD Mar 13, 2019 11:43
--- NOTE | 2019-03-13 14:49 | Nephrology Progress Note ---
Assessment/Plan Problem List: (1) Urinary tract infection (2) Hypoalbuminemia due to protein-calorie malnutrition (3) Kidney transplanted (4) Diastolic CHF with preserved left ventricular function, NYHA class 2 (5) GIB (gastrointestinal bleeding) (6) Abdominal pain (7) Hydronephrosis Plan feels better, still dysuria, empiric atb, hydronephrosis likely from neurogenic bladder, creatinine stable, observe Subjective Constitutional: Reports: weakness HEENT: Reports: no symptoms Genitourinary: Reports: incontinence Neurologic/Psychiatric: Reports: no symptoms Objective Objective Last 24 Hour Vital Signs Date Time Temp Pulse Resp B/P (MAP) Pulse Ox O2 Delivery O2 Flow Rate FiO2 03/13/19 13:27 126/60 03/13/19 12:00 98.0 83 20 126/60 (82) 98 03/13/19 09:00 Room Air 03/13/19 08:18 85 144/65 03/13/19 08:17 85 144/65 03/13/19 08:00 97.0 85 18 144/65 (91) 99 03/13/19 05:46 97.3 03/13/19 05:16 131/70 03/13/19 04:00 97.3 90 18 131/70 (90) 99 03/13/19 00:00 97.1 81 18 115/59 (77) 99 03/12/19 23:39 Room Air 03/12/19 21:09 126/61 03/12/19 21:09 88 126/61 03/12/19 20:00 97.7 79 18 128/67 (87) 99 03/12/19 16:00 98.7 88 18 126/61 (82) 99 Intake and Output 03/12/19 03/13/19 19:00 07:00 Intake Total 1252.5 ml 1627.5 ml Output Total 1000 ml Balance 1252.5 ml 627.5 ml Intake Oral 1000 ml 1000 ml IV Total 252.5 ml 627.5 ml Output Urine Total 1000 ml # Voids 4 1 # Bowel Movements 1 Height (Feet): 5 Height (Inches): 6.00 Weight (Pounds): 180 General Appearance: no apparent distress, alert EENT: normal ENT inspection Neck: normal alignment, supple Cardiovascular: regular rhythm Respiratory/Chest: lungs clear, normal breath sounds Abdomen: non tender, soft Neurologic: broadcast checker II-XII grossly normal Kade Cochran MD Mar 13, 2019 14:49
[2019-03-14] VITALS: BP 133/74
[2019-03-14] MEDS: Piperacillin/Tazobactam 3.375 GM in NS 110 ML IVPB SCH ×3 (01:31→18:33)
[2019-03-14 04:00] VITALS: BP 140/76
[2019-03-14] MEDS: HydrALAZINE 25mg tab ORAL SCH ×3 (06:00→22:41)
[2019-03-14 08:00] VITALS: BP 145/67
--- NOTE | 2019-03-14 08:35 | General Progress Note ---
Assessment/Plan Problem List: (1) Diastolic CHF with preserved left ventricular function, NYHA class 2 ICD Codes: I50.30 - Unspecified diastolic (congestive) heart failure SNOMED: 877902677, 886704592, 143396539, 134009331 (2) Syncopal episodes ICD Codes: R55 - Syncope and collapse SNOMED: 810565347 (3) Chest pain ICD Codes: R07.9 - Chest pain, unspecified SNOMED: 00979282 (4) Diarrhea ICD Codes: R19.7 - Diarrhea SNOMED: 88618451 (5) Colitis ICD Codes: K52.9 - Colitis SNOMED: 278909706 (6) GIB (gastrointestinal bleeding) ICD Codes: K92.2 - Gastrointestinal hemorrhage, unspecified SNOMED: 80219089 (7) Abdominal pain ICD Codes: R10.9 - Abdominal pain SNOMED: 13822246 Status: stable, progressing Assessment/Plan: abx cultures noted eval appreciated pain rx transplant meds per renal BP rx skin care cont morin voiding trial in 2 days placement Subjective ROS Limited/Unobtainable: No Constitutional: Reports: malaise, weakness HEENT: Reports: no symptoms Cardiovascular: Reports: no symptoms Respiratory: Reports: no symptoms Gastrointestinal/Abdominal: Reports: abdominal pain Genitourinary: Reports: no symptoms Neurologic/Psychiatric: Reports: no symptoms Endocrine: Reports: no symptoms Hematologic/Lymphatic: Reports: anemia Allergies: Coded Allergies: No Known Allergies (Verified , 05/29/09) All Systems: reviewed and negative except above Subjective morin placed for urinary retention. no new complaints. Objective Last 24 Hour Vital Signs Date Time Temp Pulse Resp B/P (MAP) Pulse Ox O2 Delivery O2 Flow Rate FiO2 03/14/19 06:00 140/76 03/14/19 04:00 98.2 92 18 140/76 (97) 98 03/14/19 00:00 98.2 93 18 133/74 (93) 99 03/13/19 22:12 129/64 03/13/19 22:06 82 129/64 (85) 03/13/19 21:02 86 138/71 03/13/19 20:19 Room Air 03/13/19 20:00 98.0 86 18 138/71 (93) 98 03/13/19 16:00 98.4 80 18 121/64 (83) 98 03/13/19 13:27 126/60 03/13/19 12:00 98.0 83 20 126/60 (82) 98 03/13/19 09:00 Room Air Intake and Output 03/13/19 03/14/19 18:59 06:59 Intake Total 1252.5 ml 672.5 ml Output Total 600 ml 800 ml Balance 652.5 ml -127.5 ml Intake Oral 480 ml 480 ml IV Total 772.5 ml 192.5 ml Output Urine Total 600 ml 800 ml # Voids 1 # Bowel Movements 1 Height (Feet): 5 Height (Inches): 6.00 Weight (Pounds): 180 Objective General Appearance: WD/WN, alert Neck: supple Cardiovascular: regular rhythm Respiratory/Chest: chest wall non-tender, lungs clear, normal breath sounds, no respiratory distress, no accessory muscle use Abdomen: normal bowel sounds, soft, no organomegaly, no mass, tender Edema: no edema noted Arm (L), no edema noted Arm (R), no edema noted Leg (L), no edema noted Leg (R), no edema noted Pedal (L), no edema noted Pedal (R), no edema noted Generalized Neurologic: 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
--- NOTE | 2019-03-14 08:35 | Urology Progress Note ---
Assessment/Plan Status: stable, progressing Assessment/Plan: 1. Abdominal pain history, which is improved. 2. Hydronephrosis of transplanted kidney, which is chronic. 3. Urinary incontinence/retention. 4. Probable neurogenic bladder. 5. UTI. 6. Hematuria. 7. Proteinuria. 8. Renal atrophy. 9. Nephrolithiasis. 10. Renal cyst. monitor clinically morin now indwelling hand irrigate PRN on abx consider holding remeron, or add flomax? cysto later recheck renal u/s later after morin drainage d/w Dr. Red Subjective Allergies: Coded Allergies: No Known Allergies (Verified , 05/29/09) Subjective all noted, morin placed Objective Last 24 Hour Vital Signs Date Time Temp Pulse Resp B/P (MAP) Pulse Ox O2 Delivery O2 Flow Rate FiO2 03/14/19 06:00 140/76 03/14/19 04:00 98.2 92 18 140/76 (97) 98 03/14/19 00:00 98.2 93 18 133/74 (93) 99 03/13/19 22:12 129/64 03/13/19 22:06 82 129/64 (85) 03/13/19 21:02 86 138/71 03/13/19 20:19 Room Air 03/13/19 20:00 98.0 86 18 138/71 (93) 98 03/13/19 16:00 98.4 80 18 121/64 (83) 98 03/13/19 13:27 126/60 03/13/19 12:00 98.0 83 20 126/60 (82) 98 03/13/19 09:00 Room Air Intake and Output 03/13/19 03/14/19 18:59 06:59 Intake Total 1252.5 ml 672.5 ml Output Total 600 ml 800 ml Balance 652.5 ml -127.5 ml Intake Oral 480 ml 480 ml IV Total 772.5 ml 192.5 ml Output Urine Total 600 ml 800 ml # Voids 1 # Bowel Movements 1 Microbiology Date/Time Source Procedure Growth Status 03/09/19 21:40 Nasal Nares MRSA Culture - Final Staphylococcus Aureus - Mrsa Complete 03/09/19 11:40 Stool Clostridium difficile Toxin Assay - Final Complete 03/10/19 22:50 Urine,Clean Catch Urine Culture - Final Mixed Gram Positive Organism Complete 03/09/19 21:40 Rectum - Final NO CARBAPENEM-RESISTANT ENTEROBACTERI... Complete Current Medications Medications (Trade) Dose Ordered Sig/Toya Route PRN Reason Start Time Stop Time Status Last Admin Dose Admin Acetaminophen/ Hydrocodone Bitart ([place] 10/325) 1 tab Q8H PRN ORAL For Pain 03/09/19 18:00 03/16/19 17:59 03/13/19 05:16 Amlodipine Besylate (Norvasc) 5 mg DAILY ORAL 03/09/19 17:00 04/08/19 16:59 03/13/19 08:18 Azathioprine (Imuran) 75 mg DAILY ORAL 03/09/19 17:00 04/08/19 16:59 03/13/19 08:17 Carvedilol (Coreg) 3.125 mg EVERY 12 HOURS ORAL 03/09/19 17:00 04/08/19 16:59 03/13/19 21:02 Cyclosporine (Neoral) 100 mg Q12HR ORAL 03/09/19 18:00 04/08/19 17:59 03/13/19 21:02 Fludrocortisone Acetate (Florinef) 0.1 mg DAILY ORAL 03/09/19 17:00 04/08/19 16:59 03/13/19 08:18 Furosemide (Lasix) 20 mg DAILYPRN PRN ORAL Water/Fluid 03/09/19 17:00 04/08/19 16:59 Hydralazine HCl (Apresoline) 25 mg EVERY 8 HOURS ORAL 03/09/19 17:00 04/08/19 16:59 03/14/19 06:00 Mirtazapine (Remeron) 15 mg BEDTIME ORAL 03/09/19 21:00 04/08/19 20:59 03/13/19 21:02 Pantoprazole (Protonix) 40 mg DAILY ORAL 03/09/19 17:00 04/08/19 16:59 03/13/19 08:18 Piperacillin Sod/ Tazobactam Sod 3.375 gm/Sodium Chloride 110 ml @ 27.5 mls/hr Q8H IVPB 03/11/19 10:00 03/18/19 09:59 03/14/19 01:31 Rivaroxaban (Xarelto) 10 mg DAILY ORAL 03/10/19 09:00 04/09/19 08:59 03/13/19 08:18 Height (Feet): 5 Height (Inches): 6.00 Weight (Pounds): 180 Objective exam stable, grossly yellow urine, occasional debris Andrés Guillory MD Mar 14, 2019 08:35
[2019-03-14] MEDS: azaTHIOprine 50 MG TAB ORAL SCH (09:40)
[2019-03-14] MEDS: cycloSPORINE 100mg cap ORAL SCH ×2 (09:41→20:48)
[2019-03-14] MEDS: Xarelto 10mg tab ORAL SCH (09:42)
[2019-03-14 12:00] VITALS: BP 130/87
[2019-03-14] MEDS: HYDROcodone/Acetamin 10/325 tab ORAL PRN (13:34)
[2019-03-14 16:00] VITALS: BP 117/60
--- NOTE | 2019-03-14 18:14 | Nephrology Progress Note ---
Assessment/Plan Problem List: (1) Urinary tract infection (2) Hypoalbuminemia due to protein-calorie malnutrition (3) Kidney transplanted (4) Diastolic CHF with preserved left ventricular function, NYHA class 2 (5) GIB (gastrointestinal bleeding) (6) Abdominal pain (7) Hydronephrosis (8) Urinary retention Plan feels better, still morin hope to dc soon, , empiric atb, hydronephrosis likely from neurogenic bladder, creatinine stable, observe Subjective Constitutional: Reports: weakness HEENT: Reports: no symptoms Genitourinary: Reports: incontinence Neurologic/Psychiatric: Reports: no symptoms Objective Objective Last 24 Hour Vital Signs Date Time Temp Pulse Resp B/P (MAP) Pulse Ox O2 Delivery O2 Flow Rate FiO2 03/14/19 16:00 97.5 82 18 117/60 (79) 98 03/14/19 14:19 127/63 03/14/19 12:00 98.3 89 18 130/87 (101) 98 03/14/19 09:41 82 149/72 03/14/19 09:39 82 149/72 03/14/19 09:00 Room Air 03/14/19 08:00 98.1 90 18 145/67 (93) 97 03/14/19 06:00 140/76 03/14/19 04:00 98.2 92 18 140/76 (97) 98 03/14/19 00:00 98.2 93 18 133/74 (93) 99 03/13/19 22:12 129/64 03/13/19 22:06 82 129/64 (85) 03/13/19 21:02 86 138/71 03/13/19 20:19 Room Air 03/13/19 20:00 98.0 86 18 138/71 (93) 98 Intake and Output 03/13/19 03/14/19 19:00 07:00 Intake Total 1150.0 ml 672.5 ml Output Total 600 ml 800 ml Balance 550.0 ml -127.5 ml Intake Oral 480 ml 480 ml IV Total 670.0 ml 192.5 ml Output Urine Total 600 ml 800 ml # Voids 1 # Bowel Movements 1 Height (Feet): 5 Height (Inches): 6.00 Weight (Pounds): 180 General Appearance: no apparent distress, alert EENT: normal ENT inspection Neck: normal alignment, supple Cardiovascular: regular rhythm Respiratory/Chest: lungs clear Abdomen: soft, no organomegaly Extremities: other - no edema Neurologic: 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
[2019-03-14 20:00] VITALS: BP 123/69
[2019-03-15] VITALS: BP 127/66
[2019-03-15] MEDS: Piperacillin/Tazobactam 3.375 GM in NS 110 ML IVPB SCH ×3 (02:05→18:48)
--- NOTE | 2019-03-15 02:45 | Progress Note ---
DATE: 03/12/2019 CARDIOLOGY PROGRESS NOTE Late entry for 03/12/2019. SUBJECTIVE: The patient has abdominal pain. No nausea or vomiting. No new bleeding noted. The patient had a pacemaker interrogated and it was functioning appropriately. OBJECTIVE: VITAL SIGNS: Blood pressure 140/62, heart rate 82, and respirations 18. LUNGS: Clear. CARDIAC: Regular. Normal S1, S2 with a fourth heart sound. ABDOMEN: Soft, slightly distended, and diffusely tender. EXTREMITIES: With right BKA. Left toe amputation. No edema. IMPRESSION: 1. Urinary tract infection. 2. Protein-calorie malnutrition. 3. Acute on chronic diastolic congestive heart failure. 4. Hypertensive heart disease. 5. Permanent pacemaker. 6. Renal transplant. 7. Gastrointestinal bleeding. 8. Hydronephrosis with neurogenic bladder. PLAN: 1. Antimicrobials. 2. Volume support. 3. Nutritional support. 4. Titrate antihypertensives. Matthew Tinajero M.D. DR: LALY JOB#: [id number] CC:
--- NOTE | 2019-03-15 03:00 | Progress Note ---
DATE: 03/13/2019 CARDIOLOGY PROGRESS NOTE Late entry. SUBJECTIVE: No loss of consciousness. No new bleeding. Tolerating diet. On antimicrobials. Status post pacemaker interrogation revealed appropriate function and battery life yesterday. OBJECTIVE: VITAL SIGNS: Blood pressure 144/65, pulse 85, and respirations 18. LUNGS: Clear. CARDIAC: Regular. Positive fourth heart sound. ABDOMEN: Slightly distended, but soft. EXTREMITIES: With right BKA. No edema. PLAN: 1. Antimicrobials. 2. Pain therapy based on clinical findings. 3. Immunosuppressants. 4. Titrate antihypertensives. 5. No role for diuretics. Matthew Tinajero M.D. DR: LALY JOB#: [id number] CC:
--- NOTE | 2019-03-15 03:00 | Progress Note ---
DATE: 03/14/2019 CARDIOLOGY PROGRESS NOTE SUBJECTIVE: Still with Gonzalez catheter. Hydronephrosis in play due to neurogenic bladder. Continues on antimicrobials for urinary infection. Feeling better overall. OBJECTIVE: VITAL SIGNS: Blood pressure 117/60, pulse 82, and respirations 18. LUNGS: Clear. CARDIAC: Regular. There is a fourth heart sound. Regular rhythm and rate. Normal S1, S2. ABDOMEN: Soft. EXTREMITIES: Right BKA. Left toe amputation. No edema. IMPRESSION: 1. Renal transplant. 2. Urinary tract infection with sepsis. 3. Chronic diastolic congestive heart failure. 4. Hypertensive heart disease. 5. Permanent pacemaker with stable function. 6. Neurogenic bladder. 7. Type 2 diabetes mellitus. PLAN: 1. No change in cardiovascular regimen. 2. Complete antimicrobials. 3. Monitor electrolytes and volume status. 4. Outpatient pacemaker re-interrogation in 6 months. Matthew Tinajero M.D. DR: LALY JOB#: [id number] CC:
[2019-03-15 04:00] VITALS: BP 131/85
[2019-03-15] MEDS: HydrALAZINE 25mg tab ORAL SCH ×3 (06:08→22:18)
[2019-03-15 08:00] VITALS: BP 118/66
--- NOTE | 2019-03-15 08:59 | Urology Progress Note ---
Assessment/Plan Status: stable, progressing Assessment/Plan: 1. Abdominal pain history, which is improved. 2. Hydronephrosis of transplanted kidney, which is chronic. 3. Urinary incontinence/retention. 4. Probable neurogenic bladder. 5. UTI. 6. Hematuria. 7. Proteinuria. 8. Renal atrophy. 9. Nephrolithiasis. 10. Renal cyst. monitor clinically morin now indwelling hand irrigate PRN on abx consider holding remeron, or add flomax? cysto later check renal u/s to see if hydro better after morin drainage d/w nursing staff Subjective Allergies: Coded Allergies: No Known Allergies (Verified , 05/29/09) Subjective all noted Objective Last 24 Hour Vital Signs Date Time Temp Pulse Resp B/P (MAP) Pulse Ox O2 Delivery O2 Flow Rate FiO2 03/15/19 06:08 114/60 03/15/19 04:00 98.4 84 17 131/85 (100) 03/15/19 00:00 98.2 80 17 127/66 (86) 03/14/19 22:41 125/75 03/14/19 22:05 Room Air 03/14/19 20:48 78 123/78 03/14/19 20:00 98.4 82 17 123/69 (87) 03/14/19 16:00 97.5 82 18 117/60 (79) 98 03/14/19 14:19 127/63 03/14/19 12:00 98.3 89 18 130/87 (101) 98 03/14/19 09:41 82 149/72 03/14/19 09:39 82 149/72 03/14/19 09:00 Room Air Intake and Output 03/14/19 03/15/19 18:59 06:59 Intake Total 480 ml 480 ml Output Total 500 ml 1000 ml Balance -20 ml -520 ml Intake Oral 480 ml 480 ml Output Urine Total 500 ml 1000 ml # Voids 1 # Bowel Movements 1 Microbiology Date/Time Source Procedure Growth Status 03/09/19 21:40 Nasal Nares MRSA Culture - Final Staphylococcus Aureus - Mrsa Complete 03/09/19 11:40 Stool Clostridium difficile Toxin Assay - Final Complete 03/10/19 22:50 Urine,Clean Catch Urine Culture - Final Mixed Gram Positive Organism Complete 03/09/19 21:40 Rectum - Final NO CARBAPENEM-RESISTANT ENTEROBACTERI... Complete Current Medications Medications (Trade) Dose Ordered Sig/Toya Route PRN Reason Start Time Stop Time Status Last Admin Dose Admin Acetaminophen/ Hydrocodone Bitart ([place] 10/325) 1 tab Q8H PRN ORAL For Pain 03/09/19 18:00 03/16/19 17:59 03/14/19 13:34 Amlodipine Besylate (Norvasc) 5 mg DAILY ORAL 03/09/19 17:00 04/08/19 16:59 03/14/19 09:41 Azathioprine (Imuran) 75 mg DAILY ORAL 03/09/19 17:00 04/08/19 16:59 03/14/19 09:40 Carvedilol (Coreg) 3.125 mg EVERY 12 HOURS ORAL 03/09/19 17:00 04/08/19 16:59 03/14/19 20:48 Cyclosporine (Neoral) 100 mg Q12HR ORAL 03/09/19 18:00 04/08/19 17:59 03/14/19 20:48 Fludrocortisone Acetate (Florinef) 0.1 mg DAILY ORAL 03/09/19 17:00 04/08/19 16:59 03/14/19 09:39 Furosemide (Lasix) 20 mg DAILYPRN PRN ORAL Water/Fluid 03/09/19 17:00 04/08/19 16:59 Hydralazine HCl (Apresoline) 25 mg EVERY 8 HOURS ORAL 03/09/19 17:00 04/08/19 16:59 03/15/19 06:08 Mirtazapine (Remeron) 15 mg BEDTIME ORAL 03/09/19 21:00 04/08/19 20:59 03/14/19 20:48 Pantoprazole (Protonix) 40 mg DAILY ORAL 03/09/19 17:00 04/08/19 16:59 03/14/19 09:42 Piperacillin Sod/ Tazobactam Sod 3.375 gm/Sodium Chloride 110 ml @ 27.5 mls/hr Q8H IVPB 03/11/19 10:00 03/18/19 09:59 03/15/19 02:05 Rivaroxaban (Xarelto) 10 mg DAILY ORAL 03/10/19 09:00 04/09/19 08:59 03/14/19 09:42 Height (Feet): 5 Height (Inches): 6.00 Weight (Pounds): 180 Objective exam stable, grossly yellow urine, occasional debris Andrés Guillory MD Mar 15, 2019 08:59
[2019-03-15] MEDS: cycloSPORINE 100mg cap ORAL SCH ×2 (09:28→20:43)
[2019-03-15] MEDS: azaTHIOprine 50 MG TAB ORAL SCH (09:28)
[2019-03-15] MEDS: Xarelto 10mg tab ORAL SCH (09:29)
[2019-03-15 12:00] VITALS: BP 122/69
--- NOTE | 2019-03-15 13:11 | General Progress Note ---
Assessment/Plan Problem List: (1) Diastolic CHF with preserved left ventricular function, NYHA class 2 ICD Codes: I50.30 - Unspecified diastolic (congestive) heart failure SNOMED: 531244310, 002036758, 500253164, 676528430 (2) Syncopal episodes ICD Codes: R55 - Syncope and collapse SNOMED: 989751886 (3) Chest pain ICD Codes: R07.9 - Chest pain, unspecified SNOMED: 70581232 (4) Diarrhea ICD Codes: R19.7 - Diarrhea SNOMED: 07439859 (5) Colitis ICD Codes: K52.9 - Colitis SNOMED: 468444944 (6) GIB (gastrointestinal bleeding) ICD Codes: K92.2 - Gastrointestinal hemorrhage, unspecified SNOMED: 98457239 (7) Abdominal pain ICD Codes: R10.9 - Abdominal pain SNOMED: 01660909 Status: stable, progressing Assessment/Plan: abx cultures noted eval appreciated pain rx transplant meds per renal BP rx skin care cont morin voiding trial in 2 days placement Subjective ROS Limited/Unobtainable: No Constitutional: Reports: malaise, weakness HEENT: Reports: no symptoms Cardiovascular: Reports: no symptoms Respiratory: Reports: no symptoms Gastrointestinal/Abdominal: Reports: abdominal pain Genitourinary: Reports: incontinence Neurologic/Psychiatric: Reports: paresthesia, pre-existing deficit Endocrine: Reports: no symptoms Hematologic/Lymphatic: Reports: anemia Allergies: Coded Allergies: No Known Allergies (Verified , 05/29/09) All Systems: reviewed and negative except above Subjective no events. decrease pain. noted. no fever or chills. +pain Objective Last 24 Hour Vital Signs Date Time Temp Pulse Resp B/P (MAP) Pulse Ox O2 Delivery O2 Flow Rate FiO2 03/15/19 12:00 98.4 18 122/69 (86) 98 03/15/19 09:35 Room Air 03/15/19 09:28 76 128/64 03/15/19 09:28 76 128/64 03/15/19 08:00 98.7 82 18 118/66 (83) 95 03/15/19 06:08 114/60 03/15/19 04:00 98.4 84 17 131/85 (100) 03/15/19 00:00 98.2 80 17 127/66 (86) 03/14/19 22:41 125/75 03/14/19 22:05 Room Air 03/14/19 20:48 78 123/78 03/14/19 20:00 98.4 82 17 123/69 (87) 03/14/19 16:00 97.5 82 18 117/60 (79) 98 03/14/19 14:19 127/63 Intake and Output 03/14/19 03/15/19 18:59 06:59 Intake Total 480 ml 480 ml Output Total 500 ml 1000 ml Balance -20 ml -520 ml Intake Oral 480 ml 480 ml Output Urine Total 500 ml 1000 ml # Voids 1 # Bowel Movements 1 Height (Feet): 5 Height (Inches): 6.00 Weight (Pounds): 180 Objective General Appearance: WD/WN, alert Neck: supple Cardiovascular: regular rhythm Respiratory/Chest: chest wall non-tender, lungs clear, normal breath sounds, no respiratory distress, no accessory muscle use Abdomen: normal bowel sounds, soft, no organomegaly, no mass, tender Edema: no edema noted Arm (L), no edema noted Arm (R), no edema noted Leg (L), no edema noted Leg (R), no edema noted Pedal (L), no edema noted Pedal (R), no edema noted 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
--- NOTE | 2019-03-15 13:43 | Diagnostic Imaging Report ---
Indication:Elevated Bun and Creatinine. Technique: Grayscale and duplex Doppler imaging of the kidneys performed. Comparison: None Findings: Transplanted kidney on the right demonstrated with normal cortical volume and size measuring about 12.3 cm in length. There is no hydronephrosis. Doppler interrogation performed resistive indices between 0.65 and 0.79. [place] kidneys not seen. IVC is patent. Gonzalez catheter noted. IMPRESSION: Negative transplant evaluation.
[2019-03-15] MEDS: HYDROcodone/Acetamin 10/325 tab ORAL PRN (14:50)
--- NOTE | 2019-03-15 15:01 | Nephrology Progress Note ---
Assessment/Plan Problem List: (1) Urinary tract infection (2) Hypoalbuminemia due to protein-calorie malnutrition (3) Kidney transplanted (4) Diastolic CHF with preserved left ventricular function, NYHA class 2 (5) GIB (gastrointestinal bleeding) (6) Abdominal pain (7) Hydronephrosis (8) Urinary retention Plan feels better, still morin hope to dc soon, , empiric atb, hydronephrosis likely from neurogenic bladder, repeat US no hydro creatinine stable, observe Subjective Constitutional: Reports: weakness HEENT: Reports: no symptoms Genitourinary: Reports: incontinence Neurologic/Psychiatric: Reports: pre-existing deficit Objective Objective Last 24 Hour Vital Signs Date Time Temp Pulse Resp B/P (MAP) Pulse Ox O2 Delivery O2 Flow Rate FiO2 03/15/19 14:43 130/66 03/15/19 12:00 98.4 18 122/69 (86) 98 03/15/19 09:35 Room Air 03/15/19 09:28 76 128/64 03/15/19 09:28 76 128/64 03/15/19 08:00 98.7 82 18 118/66 (83) 95 03/15/19 06:08 114/60 03/15/19 04:00 98.4 84 17 131/85 (100) 03/15/19 00:00 98.2 80 17 127/66 (86) 03/14/19 22:41 125/75 03/14/19 22:05 Room Air 03/14/19 20:48 78 123/78 03/14/19 20:00 98.4 82 17 123/69 (87) 03/14/19 16:00 97.5 82 18 117/60 (79) 98 Intake and Output 03/14/19 03/15/19 18:59 06:59 Intake Total 480 ml 480 ml Output Total 500 ml 1000 ml Balance -20 ml -520 ml Intake Oral 480 ml 480 ml Output Urine Total 500 ml 1000 ml # Voids 1 # Bowel Movements 1 Height (Feet): 5 Height (Inches): 6.00 Weight (Pounds): 180 General Appearance: no apparent distress, alert EENT: normal ENT inspection Neck: normal alignment Cardiovascular: normal rate, regular rhythm Respiratory/Chest: lungs clear Abdomen: soft, no organomegaly Extremities: other - no edema, bka 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
[2019-03-15 16:00] VITALS: BP 119/70
[2019-03-15 20:00] VITALS: BP 108/77
[2019-03-16] VITALS: BP 113/74
[2019-03-16] MEDS: Piperacillin/Tazobactam 3.375 GM in NS 110 ML IVPB SCH ×2 (02:10→10:35)
[2019-03-16 04:00] VITALS: BP 120/86
--- NOTE | 2019-03-16 04:01 | Progress Note ---
DATE: 03/15/2019 CARDIOLOGY PROGRESS NOTE SUBJECTIVE: The patient has decreasing pain. Renal ultrasound was normal for a transplanted kidney. The patient has a Gonzalez catheter in place. OBJECTIVE: VITAL SIGNS: Blood pressure 128/64, heart rate 76, respirations 18, and afebrile. LUNGS: Clear. CARDIAC: Regular. Normal S1, S2 with a fourth heart sound. ABDOMEN: Soft and palpable kidney transplant on the right. EXTREMITIES: Right BKA. Left toe amputations. IMPRESSION: 1. Urinary tract infection. 2. Recovering sepsis. 3. Resolved dehydration and hypovolemia. 4. Permanent pacemaker with stable function. 5. Hypertension with controlled blood pressure and compensated diastolic dysfunction. PLAN: 1. Continue current cardiovascular regimen. 2. Antimicrobials. 3. Maintain adequate oral intake and hydration. Matthew Tinajero M.D. DR: LALY JOB#: [id number] CC:
[2019-03-16] MEDS: HydrALAZINE 25mg tab ORAL SCH ×2 (05:43→14:31)
[2019-03-16 07:48] LABS: ANION GAP 10 mmol/L (5-15); BLOOD UREA NITROGEN 12 mg/dL (7-18); CALCIUM 9.2 MG/DL (8.5-10.1); CARBON DIOXIDE 24 MMOL/L (21-32); CHLORIDE 108 MMOL/L (98-107); CREATININE 0.9 MG/DL (0.55-1.30); POTASSIUM 5.2 MMOL/L (3.5-5.1); SODIUM 142 MMOL/L (136-145)
[2019-03-16 08:00] VITALS: BP 148/87
[2019-03-16] MEDS: azaTHIOprine 50 MG TAB ORAL SCH (09:01)
[2019-03-16] MEDS: cycloSPORINE 100mg cap ORAL SCH (09:01)
[2019-03-16] MEDS: Xarelto 10mg tab ORAL SCH (09:02)
[2019-03-16] MEDS: HYDROcodone/Acetamin 10/325 tab ORAL PRN (09:23)
--- NOTE | 2019-03-16 09:23 | General Progress Note ---
Assessment/Plan Problem List: (1) Diastolic CHF with preserved left ventricular function, NYHA class 2 ICD Codes: I50.30 - Unspecified diastolic (congestive) heart failure SNOMED: 157746986, 114419942, 264541688, 692609223 (2) Syncopal episodes ICD Codes: R55 - Syncope and collapse SNOMED: 520464503 (3) Chest pain ICD Codes: R07.9 - Chest pain, unspecified SNOMED: 66535065 (4) Diarrhea ICD Codes: R19.7 - Diarrhea SNOMED: 68033399 (5) Colitis ICD Codes: K52.9 - Colitis SNOMED: 370367466 (6) GIB (gastrointestinal bleeding) ICD Codes: K92.2 - Gastrointestinal hemorrhage, unspecified SNOMED: 01841641 (7) Abdominal pain ICD Codes: R10.9 - Abdominal pain SNOMED: 59288894 Status: stable, progressing Assessment/Plan: abx cultures noted eval appreciated pain rx transplant meds per renal BP rx skin care cont morin voiding trial per gu placement Subjective ROS Limited/Unobtainable: No Constitutional: Reports: malaise, weakness HEENT: Reports: no symptoms Cardiovascular: Reports: no symptoms Respiratory: Reports: no symptoms Gastrointestinal/Abdominal: Reports: no symptoms Genitourinary: Reports: no symptoms Neurologic/Psychiatric: Reports: no symptoms Endocrine: Reports: no symptoms Hematologic/Lymphatic: Reports: no symptoms Allergies: Coded Allergies: No Known Allergies (Verified , 05/29/09) All Systems: reviewed and negative except above Subjective no events. decrease pain. noted. no fever or chills. +pain still with morin. does not want to go back home. Objective Last 24 Hour Vital Signs Date Time Temp Pulse Resp B/P (MAP) Pulse Ox O2 Delivery O2 Flow Rate FiO2 03/16/19 09:02 92 148/87 03/16/19 09:02 92 148/87 03/16/19 05:43 120/86 03/16/19 04:00 98.3 108 18 120/86 (97) 99 03/16/19 00:00 98.2 105 17 113/74 (87) 97 03/15/19 22:18 128/73 03/15/19 21:00 Room Air 03/15/19 20:44 77 128/73 03/15/19 20:00 98.0 95 18 108/77 (87) 98 03/15/19 16:00 98.0 78 18 119/70 (86) 98 03/15/19 14:43 130/66 03/15/19 12:00 98.4 87 18 122/69 (86) 98 03/15/19 09:35 Room Air 03/15/19 09:28 76 128/64 03/15/19 09:28 76 128/64 Intake and Output 03/15/19 03/16/19 19:00 07:00 Intake Total 860 ml 480 ml Output Total 400 ml 1450 ml Balance 460 ml -970 ml Intake Oral 860 ml 480 ml Output Urine Total 400 ml 1450 ml # Voids 2 Laboratory Tests 03/16/19 05:32: Sodium Level 142, Potassium Level 5.2H, Chloride Level 108H, Carbon Dioxide Level 24, Anion Gap 10, Blood Urea Nitrogen 12, Creatinine 0.9, Estimat Glomerular Filtration Rate , Glucose Level 95, Calcium Level 9.2 Height (Feet): 5 Height (Inches): 6.00 Weight (Pounds): 180 Objective General Appearance: WD/WN, alert Neck: supple Cardiovascular: regular rhythm Respiratory/Chest: chest wall non-tender, lungs clear, normal breath sounds, no respiratory distress, no accessory muscle use Abdomen: normal bowel sounds, soft, no organomegaly, no mass, tender Edema: no edema noted Arm (L), no edema noted Arm (R), no edema noted Leg (L), no edema noted Leg (R), no edema noted Pedal (L), no edema noted Pedal (R), no edema noted 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
--- NOTE | 2019-03-16 09:55 | Urology Progress Note ---
Assessment/Plan Status: stable, progressing Assessment/Plan: 1. Abdominal pain history, which is improved. 2. Hydronephrosis of transplanted kidney, resolved. 3. Urinary incontinence/retention. 4. Probable neurogenic bladder. 5. UTI. 6. Hematuria. 7. Proteinuria. 8. Renal atrophy. 9. Nephrolithiasis. 10. Renal cyst. monitor clinically morin now indwelling hand irrigate PRN on abx consider holding remeron, or add flomax? cysto later hydro resolved with morin drainage Subjective Allergies: Coded Allergies: No Known Allergies (Verified , 05/29/09) Subjective all noted Objective Last 24 Hour Vital Signs Date Time Temp Pulse Resp B/P (MAP) Pulse Ox O2 Delivery O2 Flow Rate FiO2 03/16/19 09:02 92 148/87 03/16/19 09:02 92 148/87 03/16/19 05:43 120/86 03/16/19 04:00 98.3 108 18 120/86 (97) 99 03/16/19 00:00 98.2 105 17 113/74 (87) 97 03/15/19 22:18 128/73 03/15/19 21:00 Room Air 03/15/19 20:44 77 128/73 03/15/19 20:00 98.0 95 18 108/77 (87) 98 03/15/19 16:00 98.0 78 18 119/70 (86) 98 03/15/19 14:43 130/66 03/15/19 12:00 98.4 87 18 122/69 (86) 98 Intake and Output 03/15/19 03/16/19 19:00 07:00 Intake Total 860 ml 480 ml Output Total 400 ml 1450 ml Balance 460 ml -970 ml Intake Oral 860 ml 480 ml Output Urine Total 400 ml 1450 ml # Voids 2 Microbiology Date/Time Source Procedure Growth Status 03/09/19 21:40 Nasal Nares MRSA Culture - Final Staphylococcus Aureus - Mrsa Complete 03/09/19 11:40 Stool Clostridium difficile Toxin Assay - Final Complete 03/14/19 20:00 Indwelling Cath Urine Culture - Preliminary NO GROWTH Resulted 03/09/19 21:40 Rectum - Final NO CARBAPENEM-RESISTANT ENTEROBACTERI... Complete Current Medications Medications (Trade) Dose Ordered Sig/Toya Route PRN Reason Start Time Stop Time Status Last Admin Dose Admin Acetaminophen/ Hydrocodone Bitart ([place] 10/325) 1 tab Q8H PRN ORAL For Pain 03/09/19 18:00 03/16/19 17:59 03/16/19 09:23 Amlodipine Besylate (Norvasc) 5 mg DAILY ORAL 03/09/19 17:00 04/08/19 16:59 03/16/19 09:02 Azathioprine (Imuran) 75 mg DAILY ORAL 03/09/19 17:00 04/08/19 16:59 03/16/19 09:01 Carvedilol (Coreg) 3.125 mg EVERY 12 HOURS ORAL 03/09/19 17:00 04/08/19 16:59 03/16/19 09:02 Cyclosporine (Neoral) 100 mg Q12HR ORAL 03/09/19 18:00 04/08/19 17:59 03/16/19 09:01 Fludrocortisone Acetate (Florinef) 0.1 mg DAILY ORAL 03/09/19 17:00 04/08/19 16:59 03/16/19 09:01 Furosemide (Lasix) 20 mg DAILYPRN PRN ORAL Water/Fluid 03/09/19 17:00 04/08/19 16:59 Hydralazine HCl (Apresoline) 25 mg EVERY 8 HOURS ORAL 03/09/19 17:00 04/08/19 16:59 03/16/19 05:43 Mirtazapine (Remeron) 15 mg BEDTIME ORAL 03/09/19 21:00 04/08/19 20:59 03/15/19 20:44 Pantoprazole (Protonix) 40 mg DAILY ORAL 03/09/19 17:00 04/08/19 16:59 03/16/19 09:01 Piperacillin Sod/ Tazobactam Sod 3.375 gm/Sodium Chloride 110 ml @ 27.5 mls/hr Q8H IVPB 03/11/19 10:00 03/18/19 09:59 03/16/19 02:10 Rivaroxaban (Xarelto) 10 mg DAILY ORAL 03/10/19 09:00 04/09/19 08:59 03/16/19 09:02 Laboratory Tests 03/16/19 05:32: Sodium Level 142, Potassium Level 5.2H, Chloride Level 108H, Carbon Dioxide Level 24, Anion Gap 10, Blood Urea Nitrogen 12, Creatinine 0.9, Estimat Glomerular Filtration Rate , Glucose Level 95, Calcium Level 9.2 Height (Feet): 5 Height (Inches): 6.00 Weight (Pounds): 180 Objective exam stable, grossly yellow urine, occasional debris renal u/s (03/15) noted Andrés Guillory MD Mar 16, 2019 09:55
[2019-03-16 12:00] VITALS: BP 135/71
[2019-03-16 14:31] VITALS: BP 135/71
[2019-03-16] MEDS ORDERED: ZOSYN 3.373.375 GM/1 IVPB (15:14)
--- NOTE | 2019-03-17 11:54 | Discharge Summary ---
Discharge Summary Discharge Summary _ DATE OF ADMISSION: 03/09/2019 DATE OF DISCHARGE: 03/16/2019 CONSULTANTS: Dr. Matthew Cochran BRIEF HOSPITAL COURSE: Patient is an 79-year-old female, with prior history of BKA and hypertension. She had a history of DVT and kidney transplant. She presented from home with complaints of severe abdominal pain and bloody stool. According to the patient , she had intermittent episodes of blood streaked stool. She also had worsening mid epigastric abdominal pain that was severe. She denied melena or hematemesis. On evaluation at the ED, blood work showed hemoglobin of 10, hematocrit 32. Electrolytes were normal. LFTs unremarkable. She was started on IV hydration. She was then admitted for evaluation of abdominal pain, GI bleed and anemia. Studio Producer was consulted. Patient has history of kidney transplant. She had stable kidney function and was stable on current immunosuppression. She was given IV hydration. Manager Technology was consulted. Patient has a history of permanent pacemaker. Patient was on anticoagulation. Serial hemoglobin levels were monitored. CT scan of the abdomen and pelvis showed mild to moderate persistent hydro- ureterohydronephrosis of the transplanted right iliac fossa allograft, persistent compared to previous study from 07/21/2018. There was no obstructing lesion identified. There was thickening of the urinary bladder wall. She was started empirically on antibiotics. Urologist was consulted. Hydronephrosis in the transplanted kidney appeared to be chronic. Gonzalez catheter was inserted. Kidney ultrasound done post Gonzalez catheter insertion demonstrated right transplanted kidney with normal cortical volume and size. No hydronephrosis. Pacemaker interrogation showed normal function. C. difficile toxin was negative. Repeat urine culture did not isolate any growth. She was given voiding trials. Stool OB was negative. Hemoglobin was stable. She was eventually transferred to [facility] with an indwelling Gonzalez catheter. FINAL DIAGNOSES: Urinary tract infection Hydronephrosis of transplanted kidney, resolved Abdominal pain GI bleed Diastolic CHF with preserved LV function Syncopal episode Diarrhea Colitis Dehydration and hypovolemia Permanent pacemaker with stable function Hypertension DISPOSITION: DC to SNF. DISCHARGE MEDICATIONS: Refer to Discharge Medication List. I have been assigned to complete a discharge summary on this account, I was not involved with the patient's management. Vannessa Damon NP Mar 17, 2019 11:54
--- NOTE | 2019-03-19 01:31 | Progress Note ---
DATE: 03/16/2019 CARDIOLOGY PROGRESS NOTE Late entry for March 16, 2019. SUBJECTIVE: Case was reviewed with Dr. Red. Discharge plan was discussed with behavioral health case manager and discharge medications were reviewed from a cardiovascular standpoint. The patient has less pain. Voiding well with Gonzalez catheter in place. OBJECTIVE: VITAL SIGNS: Blood pressure 148/87, pulse 92, and respiratory rate 18. LUNGS: Clear. CARDIAC: Regular. Normal S1 and S2 with a fourth heart sound. ABDOMEN: Soft. EXTREMITIES: BKA stump clean and dry. No edema. LABORATORY DATA: Sodium 142, potassium 5.2, bicarbonate 24, BUN 12, and creatinine 0.9. IMPRESSION: 1. Hypertensive heart disease. Blood pressure overall controlled with elevated level noted only this morning. 2. Diastolic dysfunction with no signs of acute congestive heart failure. 3. Permanent pacemaker with stable function. 4. Urinary tract infection with sepsis and encephalopathy, now resolved. PLAN: 1. Stable for [facility] facility. 2. Cardiovascular regimen reviewed. 3. Can discontinue Gonzalez catheter . 4. Monitor volume status and cardiovascular parameters closely in view of high potential for clinical compromise and decline. Matthew Tinajero M.D. : REGINO JOB#: [id number] CC:
== END 2019-03-16 16:10 | DRG 690 ==
LOC: EDBD 11:37 → EMR 12:20 → EEVIPCON 12:20 → 4E 13:58 → EDBEDREQ 14:19
DX: N39.0 Urinary tract infection, site not specified (principal); Z94.0 Kidney transplant status; K92.2 Gastrointestinal hemorrhage, unspecified; I50.32 Chronic diastolic (congestive) heart failure; D62 Acute posthemorrhagic anemia; I13.0 Hypertensive heart and chronic kidney disease with heart failure and stage 1 through stage 4 chronic kidney disease, or unspecified chronic kidney disease; E86.0 Dehydration; K52.9 Noninfective gastroenteritis and colitis, unspecified; I73.9 Peripheral vascular disease, unspecified; G89.4 Chronic pain syndrome; N31.9 Neuromuscular dysfunction of bladder, unspecified; E11.51 Type 2 diabetes mellitus with diabetic peripheral angiopathy without gangrene; R31.9 Hematuria, unspecified; N13.2 Hydronephrosis with renal and ureteral calculous obstruction; R80.9 Proteinuria, unspecified; Z86.718 Personal history of other venous thrombosis and embolism; Z95.0 Presence of cardiac pacemaker; R55 Syncope and collapse; Z89.511 Acquired absence of right leg below knee; Z89.421 Acquired absence of other right toe(s); E11.22 Type 2 diabetes mellitus with diabetic chronic kidney disease; N18.9 Chronic kidney disease, unspecified; E11.40 Type 2 diabetes mellitus with diabetic neuropathy, unspecified; Z66 Do not resuscitate; Z68.23 Body mass index [BMI] 23.0-23.9, adult
CPT/HCPCS: 36415; 74176; 76770; 80048; 80053; 81003; 82270; 83605; 85025; 87081; 87086; 87324; 99285

== ENCOUNTER 2019-08-12 11:05 | Inpatient (IN) | payer MEDICARE, OTHER ==
[~2019-08-12] VITALS: Ht 165.1 cm; Wt 71.4 kg
[~2019-08-12 11:05] MED LIST changes: +ZOSYN 3.373.375 GM/1 IVPB
[2019-08-12 11:10] VITALS: BP 150/75
--- NOTE | 2019-08-12 11:10 | NUR ---
ED Nurse Note: Patyient brought in by RA due to non-raadiating chest pain since 0800 denies any shortness of breath Per EMS, patient had 1 nitro SL and ASA 325, upon arrival. At triage, Pt stated that pain moved to epigastric and abdomen. Alert and oriented, verbally responsive. No SOB. Afebrile. Placed on athletic monitor. VSS.
--- NOTE | 2019-08-12 11:35 | NUR ---
ED Nurse Note: Call lab for bacteriology research assistant. Blood drawn and sent to lab.
[2019-08-12 11:45] LABS: HEMATOCRIT 30.1 % (37.0-47.0); HEMOGLOBIN 9.4 G/DL (12.0-16.0); MEAN CORPUSCULAR VOLUME 103 FL (80-99); PLATELET COUNT 168 K/UL (150-450); RED BLOOD COUNT 2.91 M/UL (4.20-5.40); RED CELL DISTRIBUTION WIDTH 14.3 % (11.6-14.8); WHITE BLOOD COUNT 10.8 K/UL (4.8-10.8)
[2019-08-12 12:00] LABS: ANION GAP 8 mmol/L (5-15); BLOOD UREA NITROGEN 37 mg/dL (7-18); CALCIUM 8.5 MG/DL (8.5-10.1); CARBON DIOXIDE 24 MMOL/L (21-32); CHLORIDE 109 MMOL/L (98-107); CREATININE 1.4 MG/DL (0.55-1.30); INR 1.2 (0.9-1.1); POTASSIUM 5.2 MMOL/L (3.5-5.1); SODIUM 141 MMOL/L (136-145)
[2019-08-12 12:04] LABS: ALANINE AMINOTRANSFERASE 16 U/L (12-78); ALBUMIN/GLOBULIN RATIO 0.6 (1.0-2.7); ALKALINE PHOSPHATASE 86 U/L (46-116); ASPARTATE AMINO TRANSFERASE 20 U/L (15-37); BILIRUBIN,TOTAL 0.5 MG/DL (0.2-1.0)
--- NOTE | 2019-08-12 12:11 | NUR ---
ED Nurse Note: Xray at bedside.
--- NOTE | 2019-08-12 12:41 | Diagnostic Imaging Report ---
Indication: Chest pain Comparison: 02/18/2019 A single view chest radiograph was obtained. Findings: Interstitial opacities demonstrated bilaterally. The heart is enlarged. Central vessels are prominent. There is a pacemaker on the left. Bones are osteopenic. IMPRESSION: Interstitial edema/CHF suspected.
[2019-08-12 13:10] VITALS: BP 145/81
[2019-08-12 13:14] LABS: APPEARANCE,URINE SLIGHTLY CLOUDY; BILIRUBIN, URINE NEGATIVE (NEGATIVE); COLOR,URINE PALE YELLOW; GLUCOSE, URINE (UA) NEGATIVE (NEGATIVE); KETONES,URINE NEGATIVE (NEGATIVE); LEUKOCYTE ESTERASE ,URINE 3+ (NEGATIVE); NITRITE,URINE NEGATIVE (NEGATIVE); PH,URINE 5 (4.5-8.0); PROTEIN,URINE 2+ (NEGATIVE); UROBILINOGEN,URINE NORMAL MG/DL (0.0-1.0)
--- NOTE | 2019-08-12 14:11 | Emergency Room Report ---
History of Present Illness General Chief Complaint: Chest Pain Source: Patient, Medical Record, EMS Present Illness HPI This patient presents from a retirement facility. She has a history of kidney transplant that has been complicated by hydronephrosis and the seroma. She also has a right sided BKA. She has chronic pain. Per report by EMS she had complained of chest pain. However when I evaluated this patient she stated she had pain in her right lower abdomen. She regularly complains of this particular pain. Review of her chart shows that she had been worked up for this recently within the last 4 months with ultrasound and CT scan of her abdomen and pelvis. She does have chronic pain and is narcotic dependent. She did not complain of any chest pain to myself. Per EMS she was complaining of chest pain and she was given nitroglycerin prior to arrival with resolution of her chest pain. Currently she complains of right lower quadrant abdominal pain. She denies nausea or vomiting. She denies fever chills. She has no other complaints. Allergies: Coded Allergies: No Known Allergies (Verified , 05/29/09) Patient History Past Medical History: see triage record, old chart reviewed, HTN, CHF, GERD, psych hx, other - PAD, Phantom leg pain Past Surgical History: pacemaker, other - R. BKA, R. Renal transplant, toe amputation Social History: Denies: smoking, alcohol use, drug use Reviewed Nursing Documentation: PMH: Agreed; PSxH: Agreed Nursing Documentation-PMH Hx Cardiac Problems: Yes Hx Hypertension: Yes Hx Pacemaker: Yes - left upper chest Hx Asthma: Yes Hx Diabetes: Yes Hx Cancer: No Hx Gastrointestinal Problems: No Hx Dialysis: No Hx Neurological Problems: Yes - right BKA Hx Cerebrovascular Accident: Yes Hx Seizures: Yes - LAST EPISODE 2011 Hx Memory Loss: Yes Hx Dizziness: Yes Review of Systems All Other Systems: negative except mentioned in HPI Physical Exam Vital Signs Date Time Temp Pulse Resp B/P (MAP) Pulse Ox O2 Delivery O2 Flow Rate FiO2 08/12/19 10:56 98.2 90 16 150/75 (100) 99 Room Air Sp02 EP Interpretation: reviewed, normal General Appearance: no apparent distress, alert, GCS 15, non-toxic Head: normocephalic, atraumatic Eyes: bilateral eye normal inspection ENT: hearing grossly normal, normal pharynx, no angioedema, normal voice Neck: full range of motion, supple/symm/no masses Respiratory: chest non-tender, lungs clear, normal breath sounds, no respiratory distress, no retraction, no accessory muscle use, speaking full sentences Cardiovascular #1: regular rate, rhythm, no edema Gastrointestinal: normal bowel sounds, soft, non-distended, no guarding, no rebound, tenderness - TTP in the RLQ Rectal: deferred Musculoskeletal: other - R. BKA Neurologic: alert, oriented x3, responsive, motor strength/tone normal, sensory intact, speech normal Psychiatric: judgement/insight normal, memory normal, no suicidal/homicidal ideation, depressed affect Skin: other - See RN skin exam Medical Decision Making Diagnostic Impression: Primary Impression: Chest pain Additional Impressions: Chronic abdominal pain CHF exacerbation ER Course This patient apparently had chest pain prior to my evaluation. She was given nitroglycerin in route and had resolution of her symptoms. She also has findings on chest x-ray consistent with CHF exacerbation. Given how well she was appearing I did not give this patient diuretics at this time. She complained to me of right lower quadrant abdominal pain. This appears to be chronic as she has had imaging within the last [address] of the abdomen pelvis and renal ultrasound. I do not feel that repeat imaging is indicated at this time. She will be admitted for further monitoring of her chest pain to rule out acute coronary syndrome. Initial evaluation is unremarkable with a normal troponin and EKG. She is admitted for further evaluation treatment. Laboratory Tests Test 08/12/19 11:35 08/12/19 12:21 White Blood Count 10.8 K/UL (4.8-10.8) Red Blood Count 2.91 M/UL (4.20-5.40) L Hemoglobin 9.4 G/DL (12.0-16.0) L Hematocrit 30.1 % (37.0-47.0) L Mean Corpuscular Volume 103 FL (80-99) H Mean Corpuscular Hemoglobin 32.3 PG (27.0-31.0) H Mean Corpuscular Hemoglobin Concent 31.3 G/DL (32.0-36.0) L Red Cell Distribution Width 14.3 % (11.6-14.8) Platelet Count 168 K/UL (150-450) Mean Platelet Volume 8.6 FL (6.5-10.1) Neutrophils (%) (Auto) % (45.0-75.0) Lymphocytes (%) (Auto) % (20.0-45.0) Monocytes (%) (Auto) % (1.0-10.0) Eosinophils (%) (Auto) % (0.0-3.0) Basophils (%) (Auto) % (0.0-2.0) Differential Total Cells Counted 100 Neutrophils % (Manual) 90 % (45-75) H Lymphocytes % (Manual) 5 % (20-45) L Monocytes % (Manual) 5 % (1-10) Eosinophils % (Manual) 0 % (0-3) Basophils % (Manual) 0 % (0-2) Band Neutrophils 0 % (0-8) Platelet Estimate Adequate Platelet Morphology Normal Hypochromasia 2+ Macrocytosis 1+ Prothrombin Time 13.0 SEC (9.30-11.50) H Prothrombin Time INR 1.2 (0.9-1.1) H PTT 41 SEC (23-33) H Sodium Level 141 MMOL/L (136-145) Potassium Level 5.2 MMOL/L (3.5-5.1) H Chloride Level 109 MMOL/L (98-107) H Carbon Dioxide Level 24 MMOL/L (21-32) Anion Gap 8 mmol/L (5-15) Blood Urea Nitrogen 37 mg/dL (7-18) H Creatinine 1.4 MG/DL (0.55-1.30) H Estimate Glomerular Filtration Rate mL/min (>60) Glucose Level 179 MG/DL (74-106) H Calcium Level 8.5 MG/DL (8.5-10.1) Total Bilirubin 0.5 MG/DL (0.2-1.0) Aspartate Amino Transferase (AST) 20 U/L (15-37) Alanine Aminotransferase (ALT) 16 U/L (12-78) Alkaline Phosphatase 86 U/L (46-116) Troponin I 0.012 ng/mL (0.000-0.056) Total Protein 7.9 G/DL (6.4-8.2) Albumin 3.0 G/DL (3.4-5.0) L Globulin 4.9 g/dL Albumin/Globulin Ratio 0.6 (1.0-2.7) L Urine Color Pale yellow Urine Appearance Slightly cloudy Urine pH 5 (4.5-8.0) Urine Specific [place] 1.010 (1.005-1.035) Urine Protein 2+ (NEGATIVE) H Urine Glucose (UA) Negative (NEGATIVE) Urine Ketones Negative (NEGATIVE) Urine Blood 1+ (NEGATIVE) H Urine Nitrite Negative (NEGATIVE) Urine Bilirubin Negative (NEGATIVE) Urine Urobilinogen Normal MG/DL (0.0-1.0) Urine Leukocyte Esterase 3+ (NEGATIVE) H Urine RBC 0-2 /HPF (0 - 2) Urine WBC 40-60 /HPF (0 - 2) H Urine Squamous Epithelial Cells Occasional /LPF Urine Bacteria Many /HPF (NONE) H EKG Diagnostic Results Rate: normal Rhythm: other - Paced ST Segments: no acute changes Rhythm Strip Diag. Results EP Interpretation: yes Rate: 90's Rhythm: NSR, no PVC's, no ectopy Chest X-Ray Diagnostic Results Chest X-Ray Diagnostic Results : Chest X-Ray Ordered: Yes # of Views/Limited/Complete: 1 View Indication: Chest Pain EP Interpretation: Yes Interpretation: other - Diffuse patchy opacities Impression: Other - See above Electronically Signed by: Neha Scott DO Last Vital Signs Date Time Temp Pulse Resp B/P (MAP) Pulse Ox O2 Delivery O2 Flow Rate FiO2 08/12/19 11:10 90 16 Room Air 08/12/19 11:10 98.2 150/75 99 Disposition: ADMITTED INPATIENT Condition: Stable Referrals: John Red MD (PCP) Neha Scott DO Aug 12, 2019 14:11
--- NOTE | 2019-08-12 15:13 | NUR ---
ED Nurse Note: Report given to Karl from Tele.
[2019-08-12 15:30] VITALS: BP 148/77
--- NOTE | 2019-08-12 15:30 | NUR ---
NURSE NOTES: Received patient from ER. Patient is AAO x 4. Patient is breathing even and unlabored on room air. cardiac monitor applied. Belonging checklist signed. Vital signs done 98.6, 124/85, 74, 93% on room air, 18 respiration. Patient was changed. Reorientated to floor. Admission was done. Will follow up with plan of care.
--- NOTE | 2019-08-12 15:30 | NUR ---
TRANSFER TO FLOOR: Patient transferred to Telemetry Unit. Report given to Karl ROGERS. Pt alert and oriented, verbally responsive. No SOB. Breathing even and unlabored. IV line on right upper arm, patent and intact. Med recon done. Swabs are sent. All belongings was given to the patient. VSS.
[2019-08-12 16:00] VITALS: BP 124/85
--- NOTE | 2019-08-12 17:45 | NUR ---
NURSE NOTES: Called Dr. Tinajero in regards patient right lower extremity (Right BKA) pain. Patient was resting in bed and resting. Statest to continue monitoring.
--- NOTE | 2019-08-12 19:40 | NUR ---
HAND-OFF: Report given to KEN Lopes.
--- NOTE | 2019-08-12 19:41 | NUR ---
NURSE NOTES: Received pt from KEN Barajas. Pt awake, alert, and talkative. Bed in lowest position. Call light within reach. Will continue to monitor.
[2019-08-12 20:00] VITALS: BP 129/63
[2019-08-12] MEDS: cycloSPORINE 100mg cap ORAL SCH (21:52)
[2019-08-12] MEDS: HydrALAZINE 25mg tab ORAL SCH (21:53)
[2019-08-13] VITALS: BP 109/52
[2019-08-13 04:00] VITALS: BP 124/57
[2019-08-13] MEDS: HydrALAZINE 25mg tab ORAL SCH ×3 (05:38→21:23)
--- NOTE | 2019-08-13 07:07 | NUR ---
HAND-OFF: Report given to KEN Taylor. Pt stable.
--- NOTE | 2019-08-13 07:30 | NUR ---
NURSE NOTES: Received report from Marianne/RN, Patient is awake, Lying semi-pelaez's, resting comfortably. On room air, No acute distress/SOB noted. Able to make needs known, Denies pain at this time. IV site on right upper arm patent, no bleeding or infiltration noted.Bed in low position and locked, Bed alarm engaged. Side-rails up x3. Seizure precaution in place. Encouraged to use call light when needed. Call light within reach. Will continue plan of care.
[2019-08-13 08:00] VITALS: BP_SYST 121; BP_SYST 150; BP_DIAS 56; BP_DIAS 76
[2019-08-13] MEDS ORDERED: HYDROcodone/Acetamin 10/325 tab ORAL SCH (09:00)
[2019-08-13] MEDS: cycloSPORINE 100mg cap ORAL SCH ×2 (09:03→21:22)
[2019-08-13] MEDS: azaTHIOprine 50 MG TAB ORAL SCH (09:03)
[2019-08-13] MEDS: Xarelto 10mg tab ORAL SCH (09:04)
[2019-08-13 12:00] VITALS: BP 114/54
[2019-08-13] MEDS: Piperacillin/Tazobactam 3.375 GM in NS 110 ML IVPB SCH ×2 (12:16→21:22)
--- NOTE | 2019-08-13 15:22 | Cardiology Report ---
APPROVED REPORT EKG Measurement Heart [id number] 154P [id number] Atrial pacing Abnormal ECG
--- NOTE | 2019-08-13 15:58 | NUR ---
CASE MANAGEMENT: INITIAL REVIEW 79 YO F WINNIE FROM [facility] CC: CP PMHx: KIDNEY TRANSPLANT. HTN. PACER. ASTHMA. DM. SZ. CVA. SI:ACS T 98.2 HR 90 RR 16 B/P 150/75 SATS 99% ON RA LABS: K 5.2 CL 109 BUN 37 CR 1.4 GLU 179 IS: CXR IMPRESSION: Interstitial edema/CHF suspected. PATIENT ADMITTED TO TELE 08/12/2019 @ 5396 DCP: PATIENT TO BE DISCHARGED TO SNF ONCE MEDICALLY CLEARED. Addendum: 08/13/19 at 1911 by Marialuisa Reina INTERQUAL
[2019-08-13 16:00] VITALS: BP 114/54
--- NOTE | 2019-08-13 17:15 | History and Physical Report ---
DATE OF ADMISSION: 08/12/2019 CHIEF COMPLAINT: Chest pain. HISTORY OF PRESENT ILLNESS: The patient is an 79-year-old female. She has prior history of kidney transplant and hypertension. She has history of DVT, GI bleed, and right [id number] amputation. [facility] with complaints of chest pain. According to the patient, she was well until she developed sudden substernal chest pain. She denies any shortness of breath. She has had mild nonproductive cough. On evaluation in the emergency room, her troponin was negative. She did have an elevated potassium of 5.2 and an elevated creatinine of 1.4. She had UA with 40-60 wbc's. The patient has been started on antibiotic therapy for UTI and is now admitted for further evaluation of chest pain. PAST MEDICAL HISTORY: As above. PAST SURGICAL HISTORY: Includes a history of right BKA. CURRENT MEDICATIONS: Reconciled and reviewed. ALLERGIES: None. FAMILY HISTORY: None. SOCIAL HISTORY: There is no known history of tobacco, ethanol, or drugs. REVIEW OF SYSTEMS: GENERAL: No fevers or chills. HEENT: No headaches or visual changes. CARDIOPULMONARY: Positive for chest pain. No shortness of breath. Mild cough. GASTROINTESTINAL: No nausea or vomiting. GENITOURINARY: No urgency or frequency. MUSCULOSKELETAL: History of chronic phantom limb pain. NEUROLOGIC: No evidence of seizures. PHYSICAL EXAMINATION: VITAL SIGNS: Temperature 98 degrees, pulse 84, respirations 18, and blood pressure 150/76. GENERAL: The patient is well developed, in no apparent distress. HEART: Regular rate and rhythm. LUNGS: Clear. ABDOMEN: Soft, nontender, and nondistended. EXTREMITIES: No clubbing, cyanosis, or edema. LABORATORY DATA: White count 11, hemoglobin 9.4, hematocrit 30, and platelets of 168,000. INR is 1.2. Sodium 141, potassium 5.2, chloride 109, bicarb 24, BUN 37, and creatinine 1.4. UA showed 40-60 wbc's. ASSESSMENT: This is a pleasant female who is admitted with complaints of chest pain, unclear etiology. She also has urinary tract infection. She has history of kidney transplant, hypertension, and DVT. PLAN: IV antibiotics. Follow up cultures. Pain medications as needed for chest pain. Cardiology evaluation. Continue Xarelto. Monitor for bleeding. John Red M.D. DR: Denice JOB#: [id number] CC:
--- NOTE | 2019-08-13 19:25 | NUR ---
HAND-OFF: Report given to KEN Toussaint and KEN Bell.
--- NOTE | 2019-08-13 19:44 | NUR ---
NURSE NOTES: Received report from Rajesh Pringle RN. Patient is in bed, awake and responsive. Breathing regular and unlabored with no distress noted at this time. Patient's IV is intact and running fluids at prescribed rate. Bed is in lowest position, breaks engaged, bed alarm on, and call light within reach at all times. Will continue to monitor.
[2019-08-13 20:00] VITALS: BP 140/70
--- NOTE | 2019-08-13 21:15 | Progress Note ---
DATE: 08/13/2019 CARDIOLOGY PROGRESS NOTE SUBJECTIVE: No recurring chest pain. Still has abdominal pain. No nausea or vomiting. He is on IV antimicrobials and IV fluids. Laboratories could not be drawn including troponin due to poor peripheral access. The patient is being considered for a PICC line for access at this time. OBJECTIVE: VITAL SIGNS: Blood pressure 114/54, pulse 71, respiratory rate 18. LUNGS: Clear. CARDIAC: Regular. Normal S1 and S2 with a fourth heart sound. ABDOMEN: Soft. EXTREMITIES: No edema. Amputation site is clean and dry. LABORATORY AND DIAGNOSTIC DATA: color television console monitor reveals atrial pacing. Chest x-ray from admission reviewed and notable for mild interstitial edema. IMPRESSION: 1. Possible acute coronary syndrome, no clinical signs of acute congestive heart failure. 2. Urinary tract infection. 3. Sepsis. 4. Renal transplant. 5. Metabolic and toxic encephalopathy. 6. History of DVT on chronic anticoagulation. 7. Degenerative aortic valve disease with mild stenosis. PLAN: 1. Cautious hydration. 2. Check natriuretic peptide assay. 3. Metabolic profile. 4. Followup troponin level. 5. Titrate antihypertensives and maintain beta-blockade. 6. Continue rivaroxaban for anticoagulation in setting of recurring DVT. 7. We will continue to follow closely and adjust therapy as condition warrants . Matthew Tinajero M.D. DR: Jessica JOB#: [id number] CC: CATALINO
--- NOTE | 2019-08-13 22:00 | Consultation ---
DATE OF CONSULTATION: 08/12/2019 CARDIOLOGY CONSULTATION CONSULTING PHYSICIAN: Matthew Tinajero M.D. REQUESTING PHYSICIAN: John Red M.D. REASON FOR CONSULTATION: Chest pain. HISTORY OF PRESENT ILLNESS: This is an 79-year-old female with multiple medical problems, who has been convalescing at a assisted facility over the past few months. She has multiple risk factors for accelerated coronary artery disease and was noted to have chest pain prompting evaluation in the emergency room. The patient also has chronic pain from her leg stump and abdomen at the site of a seroma related to a renal transplant. The patient has not had any shortness of breath, cough, fever, or sputum production. She is on analgesics and she was given nitroglycerin in the field prior to arrival to the emergency room, which did result in resolution of her symptoms. PAST MEDICAL HISTORY: Insulin-requiring type 2 diabetes mellitus, renal failure, status post renal transplant with seroma and hydronephrosis, diabetic angiopathy, history of right lower extremity gangrene and amputation [id number], hypertension with hypertensive heart disease, permanent pacemaker, Degenerative aortic valve disease with mild stenosis, COPD, cerebrovascular disease with history of cerebrovascular accident, mild dementia, diabetic neuropathy, phantom limb pains, diastolic dysfunction with history of congestive heart failure, gastroesophageal reflux disease, and status post left first toe amputation. ALLERGIES: None. MEDICATIONS: Reviewed and reconciled. SOCIAL HISTORY: Prior smoker. No alcohol or substance abuse. FAMILY HISTORY: Notable for diabetes and hypertension. REVIEW OF SYSTEMS: No fevers or chills. She does have mild retinopathy. She is hard of hearing. She has not had any recent cough or sputum production and has not been on steroid. She does have a prior history of DVT. Her most recent echocardiogram revealed normal ejection fraction with concentric hypertrophy and a diastolic relaxation abnormality. There is no history of pulmonary hypertension. She has not had exertional chest pain in the past. Her pacemaker was interrogated within the last six months and noted to be functioning appropriately. She has not had any change in bowel habits, but does have chronic constipation and abdominal pain at the site of her renal transplant where a seroma is present. She does have frequent urinary tract infections. Her diabetes is mostly managed with diet and sliding scale coverage. There is no history of thyroid disorder. She has not had any dyslipidemia noted recently. She has had a prior stroke. 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 PHYSICAL EXAMINATION: VITAL SIGNS: Afebrile, blood pressure 150/75, heart rate 90, respiratory rate 16, and oxygen saturation 99% on room air. HEENT: Arcus senilis. Pale conjunctivae. Oropharynx clear. Mucous membranes moist. NECK: Supple. LUNGS: Clear. CARDIAC: Regular rhythm and rate. Normal S1 and S2 with a fourth heart sound. Left chest wall with pacemaker pocket. ABDOMEN: Soft. Mildly tender in the right lower quadrant. Renal transplant site is palpable. EXTREMITIES: Reveal no edema. Right BKA stump has no breakdown. Left foot has no palpable pulse, but appears perfused. SKIN: Without breakdown. LABORATORY AND DIAGNOSTIC DATA: Troponin is 0.012. Albumin is 3.0. Sodium 141, potassium 5.2, bicarb 24, BUN 37, creatinine 1.4, and glucose 179. White count is 10.8, hemoglobin 9.4, and MCV 103. Urinalysis with 40-60 white cells and 3+ leukocyte esterase with many bacteria. EKG reveals atrial pacing with no acute ST-T wave changes. Chest x-ray is pending for review. IMPRESSION: 1. Possible acute coronary syndrome. 2. Urinary tract infection. 3. Metabolic and toxic encephalopathy. 4. Acute on chronic kidney injury. 5. Renal transplant. 6. Chronic abdominal pain. 7. Insulin-requiring type 2 diabetes mellitus with multiple complications. 8. Peripheral artery disease with amputations of the lower extremities. PLAN: 1. Hydration. 2. Serial troponin. 3. campus monitor. 4. Titrate antihypertensive and anti-failure regimen. 5. Empiric antimicrobials. 6. Continue rivaroxaban for anticoagulation in the setting of prior DVT. 7. Maintain beta-blockade and titrate based on clinical parameters. Matthew Tinajero M.D. DR: Reji JOB#: [id number] CC: CATALINO
[2019-08-14] VITALS: BP 132/61
[2019-08-14 04:00] VITALS: BP 133/63
[2019-08-14] MEDS: HydrALAZINE 25mg tab ORAL SCH ×3 (06:19→21:26)
[2019-08-14] MEDS: Piperacillin/Tazobactam 3.375 GM in NS 110 ML IVPB SCH ×2 (06:19→13:27)
--- NOTE | 2019-08-14 07:03 | NUR ---
HAND-OFF: Report given to KEN Taylor. Patient in stable condition, plan of care endorsed.
--- NOTE | 2019-08-14 07:05 | NUR ---
NURSE NOTES: Received report from Bay /RN, Patient is awake, Lying semi-pelaez's, resting comfortably. On 2L nasal canula, No acute distress/SOB noted. Able to make needs known, Denies pain at this time. IV site on right upper arm and right wrist patent, no bleeding or infiltration noted. Bed in low position and locked, Bed alarm engaged. Side-rails up x3. Seizure precaution in place. Encouraged to use call light when needed. Call light within reach. Will continue plan of care.
[2019-08-14 08:00] VITALS: BP 139/70
[2019-08-14] MEDS: azaTHIOprine 50 MG TAB ORAL SCH (08:31)
[2019-08-14] MEDS: Xarelto 10mg tab ORAL SCH (08:32)
[2019-08-14] MEDS: cycloSPORINE 100mg cap ORAL SCH ×2 (08:32→21:26)
--- NOTE | 2019-08-14 09:36 | General Progress Note ---
Assessment/Plan Problem List: (1) Sepsis ICD Codes: A41.9 - Sepsis SNOMED: 72174416 (2) DVT (deep venous thrombosis) ICD Codes: I82.409 - Acute embolism and thrombosis of unspecified deep veins of unspecified lower extremity SNOMED: 833144123 (3) Dyspnea ICD Codes: R06.00 - Dyspnea, unspecified SNOMED: 995215939, 386771660 (4) Chronic heart failure ICD Codes: I50.9 - Heart failure, unspecified SNOMED: 71306755 (5) CHF exacerbation ICD Codes: I50.9 - Heart failure, unspecified SNOMED: 462643982, [id number] Status: stable Assessment/Plan: dv ivf lasix x 1 repeat cxr monitor lytes iv abx o2 xarelto monitor for bleeding Subjective ROS Limited/Unobtainable: No Constitutional: Reports: malaise, weakness HEENT: Reports: no symptoms Cardiovascular: Reports: no symptoms Respiratory: Reports: SOB at rest Gastrointestinal/Abdominal: Reports: no symptoms Genitourinary: Reports: no symptoms Neurologic/Psychiatric: Reports: no symptoms Endocrine: Reports: no symptoms Hematologic/Lymphatic: Reports: no symptoms Allergies: Coded Allergies: No Known Allergies (Verified , 05/29/09) All Systems: reviewed and negative except above Subjective c/o pain. c/o sob. +hypoxic on o2. Ucx noted. Objective Last 24 Hour Vital Signs Date Time Temp Pulse Resp B/P (MAP) Pulse Ox O2 Delivery O2 Flow Rate FiO2 08/14/19 08:31 79 139/70 08/14/19 08:30 79 139/70 08/14/19 08:00 96.4 79 18 139/70 (93) 96 08/14/19 06:19 133/67 08/14/19 04:00 98.6 80 17 133/63 (86) 99 08/14/19 04:00 75 08/14/19 00:00 76 08/14/19 00:00 98.8 81 16 132/61 (84) 97 08/13/19 21:23 140/70 08/13/19 21:23 89 140/70 08/13/19 21:00 Room Air 08/13/19 20:00 97.5 89 20 140/70 (93) 94 08/13/19 20:00 76 08/13/19 16:00 66 08/13/19 16:00 98.2 79 18 114/54 (74) 98 08/13/19 15:27 114/54 08/13/19 12:00 98.2 79 18 114/54 (74) 96 08/13/19 12:00 71 Intake and Output 08/13/19 08/14/19 19:00 07:00 Intake Total 280 ml 532.7 ml Balance 280 ml 532.7 ml Intake Oral 280 ml IV Total 532.7 ml # Voids 2 Laboratory Tests 08/13/19 19:50: Troponin I 0.000 Height (Feet): 5 Height (Inches): 5.00 Weight (Pounds): 165 General Appearance: WD/WN, alert Cardiovascular: normal rate Respiratory/Chest: crackles/rales Abdomen: normal bowel sounds, non tender, soft, no organomegaly Edema: no edema noted Arm (L), no edema noted Arm (R), no edema noted Leg (L), no edema noted Leg (R), no edema noted Pedal (L), no edema noted Pedal (R), no edema noted Generalized Neurologic: levelman II-XII grossly normal, no motor/sensory deficits, abnormal gait , alert, oriented x 3 John Red MD Aug 14, 2019 09:36
[2019-08-14 11:13] LABS: BASOPHILS % (AUTO) 0.6 % (0.0-2.0); EOSINOPHILS % (AUTO) 1.1 % (0.0-3.0); HEMATOCRIT 26.5 % (37.0-47.0); HEMOGLOBIN 8.4 G/DL (12.0-16.0); LYMPHOCYTES % (AUTO) 18.5 % (20.0-45.0); MEAN CORPUSCULAR VOLUME 103 FL (80-99); MONOCYTES % (AUTO) 7.6 % (1.0-10.0); NEUTROPHILS % (AUTO) 72.2 % (45.0-75.0); PLATELET COUNT 153 K/UL (150-450); RED BLOOD COUNT 2.57 M/UL (4.20-5.40); RED CELL DISTRIBUTION WIDTH 13.9 % (11.6-14.8)
[2019-08-14 11:35] LABS: ALANINE AMINOTRANSFERASE 14 U/L (12-78); ALBUMIN 2.6 G/DL (3.4-5.0); ALBUMIN/GLOBULIN RATIO 0.6 (1.0-2.7); ALKALINE PHOSPHATASE 75 U/L (46-116); ANION GAP 6 mmol/L (5-15); ASPARTATE AMINO TRANSFERASE 22 U/L (15-37); BILIRUBIN,TOTAL 0.7 MG/DL (0.2-1.0); BLOOD UREA NITROGEN 28 mg/dL (7-18); CALCIUM 8.5 MG/DL (8.5-10.1); CARBON DIOXIDE 25 MMOL/L (21-32); CHLORIDE 111 MMOL/L (98-107); CHOLESTEROL 147 MG/DL (< 200); CREATININE 1.2 MG/DL (0.55-1.30); HDL CHOLESTEROL 55 MG/DL (40-60); SODIUM 142 MMOL/L (136-145); TRIGLYCERIDES 67 MG/DL (30-150)
[2019-08-14 12:00] VITALS: BP 131/66
[2019-08-14 16:00] VITALS: BP 137/69
--- NOTE | 2019-08-14 19:42 | NUR ---
HAND-OFF: Report given to Devang/RN, Patient is in stable condition. Endorsed plan of care.
--- NOTE | 2019-08-14 19:45 | NUR ---
NURSE NOTES: Patient alert and oriented x4, with no acute s/s of distress noted. On 2L NC, saturating at 97% with no acute s/s of resp distress noted. IV site asymptomatic and patento n R wrist 22g, and R upper arm 20g, saline lock. Bed in lowest position, bed alarm on. Call light and belongings within reach.
[2019-08-14 20:00] VITALS: BP 148/58
[2019-08-14] MEDS: cefTRIAXone 1gm/D5W 55ml IVPB SCH ×2 (20:48)
[2019-08-14] MEDS: Albuterol/Ipratropium 3ml neb HHN SCH (21:45)
--- NOTE | 2019-08-14 22:45 | Progress Note ---
DATE: 08/14/2019 CARDIOLOGY PROGRESS NOTE SUBJECTIVE: The patient remains on anticoagulation. She has been increasingly short of breath and hypoxic this morning. She was given a dose of Lasix with some improvement. She has a positive urine culture. She is on antimicrobials. OBJECTIVE: VITAL SIGNS: Blood pressure 139/70, pulse 79, respirations 18, monitor atrial paced, afebrile. LUNGS: Few rales. HEART: Regular rhythm and rate. Normal S1, S2. A 1/6 systolic apical murmur. ABDOMEN: Soft, nontender. EXTREMITIES: Right BKA. No edema. LABORATORY DATA: White count 5, hemoglobin 8.4. Potassium 5, BUN 28, creatinine 1.2. Troponin negative. Magnesium 1.9. Albumin 2.6. B12 is low normal range. Folate normal. TSH normal. LDL cholesterol 78. IMPRESSION: 1. Acute on chronic diastolic congestive heart failure, permanent pacemaker. 2. Toxic and metabolic encephalopathies. 3. Urinary tract infection with sepsis. 4. Moderate protein-calorie malnutrition. 5. Hypoxia. 6. COPD. 7. History of DVT on chronic anticoagulation now. 8. Borderline normal B12 level. 9. Mild aortic valve stenosis. 10.Anemia - due to CD and CKD. PLAN: 1. Recheck radiograph of the chest with diuresis based on clinical parameters. 2. Protein supplement. 3. Empiric antimicrobials - pending final cultures. 4. Monitor hemoglobin; transfuse for symptomatic drop below 8gm/dl. 5. B12 supplement. 6. Respiratory hygiene. Matthew Tinajero M.D. : JUNITO/KIMBERLY JOB#: [id number] CC: CATALINO
[2019-08-15] VITALS: BP 132/54
[2019-08-15] MEDS: Albuterol/Ipratropium 3ml neb HHN SCH ×4 (01:00→20:00)
[2019-08-15 04:00] VITALS: BP 139/59
[2019-08-15] MEDS: HydrALAZINE 25mg tab ORAL SCH ×3 (05:38→21:05)
--- NOTE | 2019-08-15 07:23 | NUR ---
HAND-OFF: Report given to KEN Merida.
--- NOTE | 2019-08-15 08:15 | NUR ---
NURSE NOTES: pt in bed complaining of stomach pain, medication was given. Pt AOX4. pt on quality assurance monitor chassis no signs of cardiac or respiratory distress. Pt on pureWick. Bed in lowest position and locked. Call light is within reach. Will continue to monitor pt. and follow plan of care.
[2019-08-15 08:30] VITALS: BP 141/60
[2019-08-15] MEDS: cycloSPORINE 100mg cap ORAL SCH ×2 (09:25→21:05)
[2019-08-15] MEDS: azaTHIOprine 50 MG TAB ORAL SCH (09:26)
[2019-08-15] MEDS: Xarelto 10mg tab ORAL SCH (09:26)
[2019-08-15 09:48] LABS: BASOPHILS % (AUTO) 1.7 % (0.0-2.0); EOSINOPHILS % (AUTO) 0.2 % (0.0-3.0); HEMATOCRIT 25.6 % (37.0-47.0); HEMOGLOBIN 8.3 G/DL (12.0-16.0); LYMPHOCYTES % (AUTO) 15.1 % (20.0-45.0); MEAN CORPUSCULAR VOLUME 101 FL (80-99); MONOCYTES % (AUTO) 3.4 % (1.0-10.0); NEUTROPHILS % (AUTO) 79.6 % (45.0-75.0); PLATELET COUNT 172 K/UL (150-450); RED BLOOD COUNT 2.53 M/UL (4.20-5.40); RED CELL DISTRIBUTION WIDTH 13.6 % (11.6-14.8); WHITE BLOOD COUNT 5.5 K/UL (4.8-10.8)
[2019-08-15 10:12] LABS: ALANINE AMINOTRANSFERASE 15 U/L (12-78); ALBUMIN 2.7 G/DL (3.4-5.0); ALBUMIN/GLOBULIN RATIO 0.6 (1.0-2.7); ALKALINE PHOSPHATASE 69 U/L (46-116); ANION GAP 6 mmol/L (5-15); ASPARTATE AMINO TRANSFERASE 21 U/L (15-37); BILIRUBIN,TOTAL 0.8 MG/DL (0.2-1.0); BLOOD UREA NITROGEN 27 mg/dL (7-18); CALCIUM 8.7 MG/DL (8.5-10.1); CARBON DIOXIDE 28 MMOL/L (21-32); CHLORIDE 108 MMOL/L (98-107); CREATININE 1.3 MG/DL (0.55-1.30); POTASSIUM 4.6 MMOL/L (3.5-5.1); SODIUM 142 MMOL/L (136-145)
--- NOTE | 2019-08-15 10:39 | Cardiology Report ---
APPROVED REPORT EXAM: Two-dimensional and M-mode echocardiogram with Doppler and color Doppler. INDICATION Angina pectoris M-Mode DIMENSIONS IVSd1.3 (0.7-1.1cm)Left Atrium (MM)4.3 (1.6-4.0cm) LVDd3.7 (3.5-5.6cm)Aortic Root3.3 (2.0-3.7cm) PWd1.1 (0.7-1.1cm)Aortic Cusp Exc.1.5 (1.5-2.0cm) LVDs2.2 (2.5-4.0cm) PWs1.5 cm Normal left ventricular chamber size, systolic function and wall motion. Left ventricular ejection fraction estimated to be 60 %. Mild left ventricular hypertrophy. No evidence of pericardial effusion. Mild left atrial enlargement. Right cardiac chamber sizes are within normal limits. Aortic valve calcification with decreased cusp excursion c/w mild aortic stenosis. Thickened mitral valve leaflets with normal excursion. Mitral annulus and aortic root calcification. Pulmonic valve not well visualized. Normal tricuspid valve structure. IVC dilated at 2.2 cm without physiological collapse, suggestive of increased RA pressure. A color flow and spectral Doppler study was performed and revealed: No aortic regurgitation. Peak aortic valve gradient of 19 mmHg and a mean of 10 mmHg. Aortic valve area 1.4 cm2 calculated by continuity equation. No mitral regurgitation. Mitral inflow velocities indicates possible pseudo normalization pattern implying significant left ventricular diastolic dysfunction (Grade II). Mild to moderate tricuspid regurgitation. Tricuspid systolic velocities suggests peak right ventricular systolic pressure of 50 mmHg, consistent with moderate pulmonary hypertension. No pulmonic regurgitation present.
--- NOTE | 2019-08-15 11:01 | General Progress Note ---
Assessment/Plan Problem List: (1) Sepsis ICD Codes: A41.9 - Sepsis SNOMED: 88465087 (2) DVT (deep venous thrombosis) ICD Codes: I82.409 - Acute embolism and thrombosis of unspecified deep veins of unspecified lower extremity SNOMED: 511493179 (3) Dyspnea ICD Codes: R06.00 - Dyspnea, unspecified SNOMED: 815073568, 030091600 (4) Chronic heart failure ICD Codes: I50.9 - Heart failure, unspecified SNOMED: 53970172 (5) CHF exacerbation ICD Codes: I50.9 - Heart failure, unspecified SNOMED: 656167096, 10846149373082 Status: stable Assessment/Plan: follow up cxr prn diuresis monitor lytes iv abx o2 xarelto monitor for bleeding abd us Subjective ROS Limited/Unobtainable: No Constitutional: Reports: malaise, weakness HEENT: Reports: no symptoms Cardiovascular: Reports: no symptoms Respiratory: Reports: no symptoms Gastrointestinal/Abdominal: Reports: abdominal pain Genitourinary: Reports: no symptoms Neurologic/Psychiatric: Reports: no symptoms Endocrine: Reports: no symptoms Hematologic/Lymphatic: Reports: anemia Allergies: Coded Allergies: No Known Allergies (Verified , 05/29/09) All Systems: reviewed and negative except above Subjective c/o lower abd pain. no fever or chills. still with sob. on o2 Objective Last 24 Hour Vital Signs Date Time Temp Pulse Resp B/P (MAP) Pulse Ox O2 Delivery O2 Flow Rate FiO2 08/15/19 09:26 78 141/60 08/15/19 09:26 78 141/60 08/15/19 08:30 96.6 78 18 141/60 (87) 98 08/15/19 06:17 72 16 98 Nasal Cannula 2.0 28 68 16 97 08/15/19 06:17 97 Nasal Cannula 2.0 28 08/15/19 05:38 139/59 08/15/19 04:00 97.6 85 16 139/59 (85) 98 08/15/19 04:00 75 08/15/19 01:29 82 18 96 Room Air 21 08/15/19 00:00 96.7 80 16 132/54 (80) 98 08/15/19 00:00 73 08/14/19 21:26 148/58 08/14/19 21:26 82 148/58 08/14/19 21:00 Room Air 08/14/19 20:14 97 Nasal Cannula 28 08/14/19 20:00 82 08/14/19 20:00 96.8 89 18 148/58 (88) 98 08/14/19 16:00 79 08/14/19 16:00 98.5 87 20 137/69 (91) 97 08/14/19 13:27 131/66 08/14/19 12:00 80 08/14/19 12:00 98.1 83 18 131/66 (87) 95 Intake and Output 08/14/19 08/15/19 19:00 07:00 Intake Total 910.0 ml 260 ml Output Total 1150 ml 1100 ml Balance -240.0 ml -840 ml Intake Oral 800 ml 150 ml IV Total 110.0 ml 110 ml Output Urine Total 1150 ml 1100 ml Laboratory Tests 08/15/19 09:30: White Blood Count 5.5, Red Blood Count 2.53L, Hemoglobin 8.3L, Hematocrit 25.6L , Mean Corpuscular Volume 101H, Mean Corpuscular Hemoglobin 33.0H, Mean Corpuscular Hemoglobin Concent 32.6, Red Cell Distribution Width 13.6, Platelet Count 172, Mean Platelet Volume 8.0, Neutrophils (%) (Auto) 79.6H, Lymphocytes ( %) (Auto) 15.1L, Monocytes (%) (Auto) 3.4, Eosinophils (%) (Auto) 0.2, Basophils (%) (Auto) 1.7, Sodium Level 142, Potassium Level 4.6, Chloride Level 108H, Carbon Dioxide Level 28, Anion Gap 6, Blood Urea Nitrogen 27H, Creatinine 1.3, Estimat Glomerular Filtration Rate , Glucose Level 96, Calcium Level 8.7, Total Bilirubin 0.8, Aspartate Amino Transf (AST/SGOT) 21, Alanine Aminotransferase (ALT/SGPT) 15, Alkaline Phosphatase 69, Pro-B-Type Natriuretic Peptide 2884H, Total Protein 7.5, Albumin 2.7L, Globulin 4.8, Albumin/Globulin Ratio 0.6L Height (Feet): 5 Height (Inches): 5.00 Weight (Pounds): 165 General Appearance: WD/WN, alert Neck: supple Cardiovascular: normal rate Respiratory/Chest: lungs clear Abdomen: normal bowel sounds, non tender, soft, no organomegaly Edema: no edema noted Arm (L), no edema noted Arm (R), no edema noted Leg (L), no edema noted Leg (R), no edema noted Pedal (L), no edema noted Pedal (R), no edema noted Generalized Objective right John Samuel MD Aug 15, 2019 11:01
[2019-08-15] MEDS ORDERED: oxyCONTIN 20mg tab ORAL SCH (11:45)
[2019-08-15 12:00] VITALS: BP 121/64
--- NOTE | 2019-08-15 15:22 | NUR ---
CASE MANAGEMENT:REVIEW 08/15/19 SI:SEPSIS. DVT. CHF EXACERBATION 96.6 78 18 141/60 98% ON 2L/NC H/H-8.3/25.6 BUN+27 BNP+2884 IS: DUONEB HHN Q6HRS RTC IV ROCEPHIN Q24 NORVASC PO QD IMURAN PO QD FLORINEF PO QD PROTONIX PO QD XARELTO PO QD HYDRALAZINE PO Q8HRS COREG PO Q12 : TELEMETRY STATUS DCP: FROM [facility] PLAN: TYPE & SCREEN
--- NOTE | 2019-08-15 15:40 | Diagnostic Imaging Report ---
Indication: Dyspnea Comparison: 08/12/2019 A single view chest radiograph was obtained. Findings: Pulmonary vascular congestion is present with cardiomegaly. Pacemaker again noted on the left. IMPRESSION: Slightly worsening CHF
[2019-08-15 16:00] VITALS: BP 130/57
--- NOTE | 2019-08-15 16:29 | Diagnostic Imaging Report ---
Indication: Abdominal pain Technique: Grayscale and duplex Doppler imaging of the abdomen performed. Comparison: None Findings: The liver is unremarkable. Doppler interrogation of the main portal vein shows patency with hepatopedal, monophasic flow. There is no biliary ductal dilatation identified. Gallbladder is absent. There is a small left pleural effusion. There demonstrated part of the pancreas, aorta and IVC show no definite abnormalities. Both [place] kidneys were not visualized presumably due to atrophy. There is a right renal allograft iliac fossa which appears normal in echogenicity. There is no hydronephrosis. IMPRESSION: No acute findings Right renal allograft unremarkable. Formal renal transplant evaluation of performed on this examination. Status post cholecystectomy. Small left pleural effusion
[2019-08-15] MEDS ORDERED: LYRICA75 M1 ORAL (19:00)
[2019-08-15] MEDS ORDERED: ACETAMINOPHEN325 M1 ORAL (19:00)
[2019-08-15] MEDS ORDERED: MULTIVITAMINS1 EAC8 ORAL (19:00)
--- NOTE | 2019-08-15 19:26 | NUR ---
HAND-OFF: Report given to Devang/RN pt in stable conditio..
--- NOTE | 2019-08-15 19:26 | NUR ---
NURSE NOTES: Pt received from KEN Merida alert and oriented x4 with no acute s/s of distress noted. On 2L NC, no s/s of acute resp distress noted. IV site asymptomatic and patent on R wrist 22g and R upper arm 20g, saline lock. Bed in lowest position, bed alarm on. Call light and belongings within reach.
[2019-08-15] MEDS: cefTRIAXone 1gm/D5W 55ml IVPB SCH ×2 (19:47)
[2019-08-15 20:00] VITALS: BP 134/60
[2019-08-16] VITALS: BP 130/64
[2019-08-16] MEDS: Albuterol/Ipratropium 3ml neb HHN SCH ×4 (01:00→19:40)
[2019-08-16] MEDS ORDERED: Vitamin B12 1000mcg/ml Inj IM SCH (01:45)
[2019-08-16 04:00] VITALS: BP 130/60
[2019-08-16] MEDS: HydrALAZINE 25mg tab ORAL SCH ×3 (05:47→21:34)
[2019-08-16] MEDS ORDERED: Albuterol/Ipratropium 3ml neb HHN SCH ×2 (06:00→07:00)
--- NOTE | 2019-08-16 06:00 | Progress Note ---
DATE: 08/15/2019 CARDIOLOGY PROGRESS NOTE SUBJECTIVE: Abdominal pain and some shortness of breath persists. No chest pain. OBJECTIVE: VITAL SIGNS: Blood pressure 141/60, heart rate 78, respirations 18. Monitor atrial paced. LUNGS: Clear. CARDIAC: Regular rhythm rate. Normal S1, S2 with a fourth heart sound. ABDOMEN: Soft. EXTREMITIES: No edema. Stump site clean and amputation site is clean and dry. LABORATORY DATA: White count 6.5, hemoglobin 8.3. Sodium 142, potassium 4.6, pro natriuretic peptide 2800, BUN 27, creatinine 1.3. IMPRESSION: 1. Severe anemia. 2. Acute on chronic diastolic congestive heart failure. 3. Hypertensive heart disease. 4. Toxic and metabolic encephalopathies. 5. Renal transplant. 6. Urinary tract infection with sepsis. 7. Moderate protein-calorie malnutrition. 8. Permanent pacemaker. PLAN: 1. Stool occult blood. 2. Anticoagulation in view of recurring DVT. Using rivaroxaban for this. 3. Pacemaker interrogation if not recently done. Records will be checked. 4. Serial hemoglobin. 5. We will consider iron supplement if iron deficiency is confirmed. Matthew Tinajero M.D. DR: ANDREI JOB#: [id number] CC:
--- NOTE | 2019-08-16 07:25 | NUR ---
HAND-OFF: Report given to KEN Kim. Plan of care endorsed.
[2019-08-16 07:28] LABS: BASOPHILS % (AUTO) 1.2 % (0.0-2.0); EOSINOPHILS % (AUTO) 1.3 % (0.0-3.0); HEMOGLOBIN 8.3 G/DL (12.0-16.0); LYMPHOCYTES % (AUTO) 20.4 % (20.0-45.0); MEAN CORPUSCULAR VOLUME 102 FL (80-99); MONOCYTES % (AUTO) 7.4 % (1.0-10.0); NEUTROPHILS % (AUTO) 69.6 % (45.0-75.0); PLATELET COUNT 181 K/UL (150-450); RED BLOOD COUNT 2.56 M/UL (4.20-5.40); RED CELL DISTRIBUTION WIDTH 13.4 % (11.6-14.8); WHITE BLOOD COUNT 3.9 K/UL (4.8-10.8)
[2019-08-16] MEDS ORDERED: Albuterol/Ipratropium 3ml neb ONE (07:48)
[2019-08-16 07:50] LABS: % IRON SATURATION 23 % (15-50); IRON 38 ug/dL (50-175); TOTAL IRON BINDING CAPACITY 163 ug/dL (250-450)
--- NOTE | 2019-08-16 07:55 | NUR ---
NURSE NOTES: Report received from KEN Siddiqi. Pt shows no signs of distress, A+Ox4, denies pain/SOB. Respirations are even on 2 L NC. IV sites are patent and saline locked. Bed is at lowest position, brakes engaged, siderails x2, bed alarm on, and call light within reach. Pt is in stable condition at this time; will continue to monitor.
[2019-08-16 08:00] VITALS: BP 146/66
[2019-08-16] MEDS: Xarelto 10mg tab ORAL SCH (09:07)
[2019-08-16] MEDS: cycloSPORINE 100mg cap ORAL SCH ×2 (09:07→21:34)
[2019-08-16] MEDS: azaTHIOprine 50 MG TAB ORAL SCH (09:08)
[2019-08-16 12:00] VITALS: BP 130/69
[2019-08-16] MEDS ORDERED: Bisacodyl EC 5mg tab ORAL SCH (13:00)
--- NOTE | 2019-08-16 15:43 | General Progress Note ---
Assessment/Plan Problem List: (1) Sepsis ICD Codes: A41.9 - Sepsis SNOMED: 55892806 (2) DVT (deep venous thrombosis) ICD Codes: I82.409 - Acute embolism and thrombosis of unspecified deep veins of unspecified lower extremity SNOMED: 954731385 (3) Dyspnea ICD Codes: R06.00 - Dyspnea, unspecified SNOMED: 632971022, 031472589 (4) Chronic heart failure ICD Codes: I50.9 - Heart failure, unspecified SNOMED: 00370100 (5) CHF exacerbation ICD Codes: I50.9 - Heart failure, unspecified SNOMED: 929174958, 71561821389969 Status: stable Assessment/Plan: follow up cxr prn diuresis monitor lytes iv abx o2 xarelto monitor for bleeding dc planning tomorrow if better Subjective ROS Limited/Unobtainable: No Constitutional: Reports: malaise, weakness HEENT: Reports: no symptoms Cardiovascular: Reports: no symptoms Respiratory: Reports: cough, shortness of breath Gastrointestinal/Abdominal: Reports: no symptoms Genitourinary: Reports: no symptoms Neurologic/Psychiatric: Reports: no symptoms Endocrine: Reports: no symptoms Hematologic/Lymphatic: Reports: anemia Allergies: Coded Allergies: No Known Allergies (Verified , 05/29/09) All Systems: reviewed and negative except above Subjective c/o lower abd pain but less- us negative. cxr with worsening chf. on abx for ecoli uti Objective Last 24 Hour Vital Signs Date Time Temp Pulse Resp B/P (MAP) Pulse Ox O2 Delivery O2 Flow Rate FiO2 08/16/19 13:44 77 20 99 Nasal Cannula 2.0 28 78 20 98 08/16/19 13:05 130/69 08/16/19 12:00 71 08/16/19 12:00 96.8 79 20 130/69 (89) 99 08/16/19 09:06 86 146/66 08/16/19 09:06 86 146/66 08/16/19 09:00 Nasal Cannula 2.0 08/16/19 08:00 96.9 86 20 146/66 (92) 100 08/16/19 08:00 74 08/16/19 07:55 99 Nasal Cannula 2.0 28 08/16/19 07:55 80 20 100 Nasal Cannula 2.0 28 81 20 99 08/16/19 05:47 130/60 08/16/19 04:00 98.2 83 16 130/60 (83) 95 08/16/19 04:00 82 08/16/19 01:18 Nasal Cannula 2.0 28 08/16/19 00:00 97.9 87 18 130/64 (86) 96 08/16/19 00:00 80 08/15/19 21:05 134/60 08/15/19 21:05 75 134/60 08/15/19 21:00 Nasal Cannula 2.0 08/15/19 20:00 75 08/15/19 20:00 97.7 84 17 134/60 (84) 96 08/15/19 19:45 84 16 100 Nasal Cannula 2.0 28 84 16 100 08/15/19 19:45 100 Nasal Cannula 2.0 28 08/15/19 16:00 90 08/15/19 16:00 98.0 85 18 130/57 (81) 99 Intake and Output 08/15/19 08/16/19 19:00 07:00 Intake Total 140 ml 240 ml Output Total 1200 ml Balance 140 ml -960 ml Intake Oral 140 ml 240 ml Output Urine Total 1200 ml # Voids 1 Laboratory Tests 08/16/19 06:25: White Blood Count 3.9L, Red Blood Count 2.56L, Hemoglobin 8.3L, Hematocrit 26.0L , Mean Corpuscular Volume 102H, Mean Corpuscular Hemoglobin 32.3H, Mean Corpuscular Hemoglobin Concent 31.8L, Red Cell Distribution Width 13.4, Platelet Count 181, Mean Platelet Volume 8.0, Neutrophils (%) (Auto) 69.6, Lymphocytes (%) (Auto) 20.4, Monocytes (%) (Auto) 7.4, Eosinophils (%) (Auto) 1.3, Basophils (%) (Auto) 1.2, Iron Level 38L, Total Iron Binding Capacity 163L , Percent Iron Saturation 23, Unsaturated Iron Binding 125 Height (Feet): 5 Height (Inches): 5.00 Weight (Pounds): 165 Objective right John Samuel MD Aug 16, 2019 15:43
[2019-08-16 16:00] VITALS: BP 118/69
--- NOTE | 2019-08-16 19:05 | NUR ---
HAND-OFF: Report given to KEN Siddiqi. Pt is in stable condition; plan of care endorsed.
--- NOTE | 2019-08-16 19:15 | NUR ---
NURSE NOTES: Patient alert and oriented x4 with no acute s/s of distress noted. On 2L NC, saturating at 98% with no acute s/s of resp distress noted. IV site asymptomatic and patent. Bed in lowest position, bed alarm on. Call light and belongings within reach.
[2019-08-16 20:00] VITALS: BP 128/63
[2019-08-16] MEDS: cefTRIAXone 1gm/D5W 55ml IVPB SCH ×2 (20:28)
[2019-08-17] VITALS: BP 136/67
[2019-08-17] MEDS: Albuterol/Ipratropium 3ml neb HHN SCH ×4 (00:41→20:38)
[2019-08-17 04:00] VITALS: BP 137/60
[2019-08-17] MEDS: HydrALAZINE 25mg tab ORAL SCH ×3 (05:21→22:30)
--- NOTE | 2019-08-17 06:15 | Progress Note ---
DATE: 08/16/2019 CARDIOLOGY PROGRESS NOTE SUBJECTIVE: More alert, more interactive. No chest pain. No shortness of breath. OBJECTIVE: VITAL SIGNS: Blood pressure of 128/63, pulse 90, and respirations 18. NECK: Supple. LUNGS: Clear. CHEST WALL: With pacemaker pocket, site clean and dry. HEART: Regular rhythm and rate. Normal S1, S2. A 1/6 systolic apical murmur. Atrial pacing. EXTREMITIES: No edema. LABORATORY DATA: White count 3.9, hemoglobin 8.3. BUN 27, creatinine 1.3. Pro-natriuretic peptide 2800. IMPRESSION: 1. Hypertensive heart disease. 2. Urinary tract infection. 3. Sepsis. 4. Toxic and metabolic encephalopathies. 5. Renal transplant. 6. Moderate protein-calorie malnutrition. 7. Permanent pacemaker. 8. Acute on chronic diastolic congestive heart failure. 9. Peripheral artery disease with amputation including right BKA. PLAN: 1. Diuresis. 2. Antimicrobials. 3. Titration of antihypertensives. 4. Pacemaker interrogation. Matthew Tinajero M.D. DR: ASHLEIGH JOB#: [id number] CC:
[2019-08-17 07:19] LABS: ANION GAP 12 mmol/L (5-15); BLOOD UREA NITROGEN 23 mg/dL (7-18); CALCIUM 9.3 MG/DL (8.5-10.1); CARBON DIOXIDE 25 MMOL/L (21-32); CHLORIDE 106 MMOL/L (98-107); CREATININE 1.1 MG/DL (0.55-1.30); POTASSIUM 4.1 MMOL/L (3.5-5.1); SODIUM 142 MMOL/L (136-145)
[2019-08-17 07:21] LABS: BASOPHILS % (AUTO) 1.2 % (0.0-2.0); EOSINOPHILS % (AUTO) 0.8 % (0.0-3.0); HEMATOCRIT 26.2 % (37.0-47.0); HEMOGLOBIN 8.5 G/DL (12.0-16.0); LYMPHOCYTES % (AUTO) 20.8 % (20.0-45.0); MEAN CORPUSCULAR VOLUME 100 FL (80-99); MONOCYTES % (AUTO) 6.3 % (1.0-10.0); PLATELET COUNT 190 K/UL (150-450); RED BLOOD COUNT 2.61 M/UL (4.20-5.40); RED CELL DISTRIBUTION WIDTH 13.2 % (11.6-14.8); WHITE BLOOD COUNT 4.4 K/UL (4.8-10.8)
--- NOTE | 2019-08-17 07:35 | NUR ---
HAND-OFF: Report given to KEN Roberts. Plan of care endorsed.
--- NOTE | 2019-08-17 07:56 | NUR ---
NURSE NOTES: Report received from KEN Siddiqi. in bed. Denies any pain at this time. Pt shows no signs of distress, A+Ox4. Respirations are even and unlabored on 2 L NC. IV sites are patent and saline locked. Bed is at lowest position, brakes engaged, siderails x2, bed alarm on, and call light within reach. Pt is in stable condition at this time; will continue with the plan of care.
[2019-08-17 08:00] VITALS: BP 144/64
[2019-08-17] MEDS: Xarelto 10mg tab ORAL SCH (08:30)
[2019-08-17] MEDS: cycloSPORINE 100mg cap ORAL SCH ×2 (08:31→21:12)
[2019-08-17] MEDS ORDERED: azaTHIOprine 50 MG TAB ORAL SCH (09:00)
[2019-08-17 12:00] VITALS: BP 136/64
--- NOTE | 2019-08-17 15:06 | General Progress Note ---
Assessment/Plan Problem List: (1) Sepsis ICD Codes: A41.9 - Sepsis SNOMED: 27095720 (2) DVT (deep venous thrombosis) ICD Codes: I82.409 - Acute embolism and thrombosis of unspecified deep veins of unspecified lower extremity SNOMED: 724116051 (3) Dyspnea ICD Codes: R06.00 - Dyspnea, unspecified SNOMED: 795808599, 651272421 (4) Chronic heart failure ICD Codes: I50.9 - Heart failure, unspecified SNOMED: 91810802 (5) CHF exacerbation ICD Codes: I50.9 - Heart failure, unspecified SNOMED: 039562595, 90590448036989 Status: stable Assessment/Plan: monitor cxr prn diuresis monitor lytes iv abx o2 xarelto monitor for bleeding ct abd ordered transplant meds per renal Subjective ROS Limited/Unobtainable: No Constitutional: Reports: malaise, weakness HEENT: Reports: no symptoms Cardiovascular: Reports: no symptoms Respiratory: Reports: cough Gastrointestinal/Abdominal: Reports: abdominal pain Genitourinary: Reports: no symptoms Neurologic/Psychiatric: Reports: no symptoms Endocrine: Reports: no symptoms Hematologic/Lymphatic: Reports: anemia Allergies: Coded Allergies: No Known Allergies (Verified , 05/29/09) All Systems: reviewed and negative except above Subjective c/o severe abd pain. denies constipation or diarrhea. no fevers or chills. on abx. no nausea or vomiting. poor appetite Objective Last 24 Hour Vital Signs Date Time Temp Pulse Resp B/P (MAP) Pulse Ox O2 Delivery O2 Flow Rate FiO2 08/17/19 14:42 136/64 08/17/19 12:00 97.7 82 20 136/64 (88) 100 08/17/19 12:00 82 08/17/19 11:35 80 18 100 Nasal Cannula 2.0 28 76 16 100 08/17/19 09:00 Nasal Cannula 2.0 08/17/19 08:30 81 144/64 08/17/19 08:28 81 144/64 08/17/19 08:00 90 08/17/19 08:00 97.4 90 18 144/64 (90) 97 08/17/19 07:27 88 18 99 Nasal Cannula 2.0 28 86 16 99 08/17/19 07:27 99 Nasal Cannula 2.0 28 08/17/19 05:21 137/60 08/17/19 04:00 98.7 87 20 137/60 (85) 97 08/17/19 04:00 84 08/17/19 00:41 85 18 99 Nasal Cannula 2.0 28 82 16 98 08/17/19 00:00 74 08/17/19 00:00 98.2 91 18 136/67 (90) 94 08/16/19 21:34 128/63 08/16/19 21:34 90 128/63 08/16/19 21:00 Nasal Cannula 2.0 08/16/19 20:00 80 08/16/19 20:00 98.1 90 20 128/63 (84) 98 08/16/19 19:40 89 20 99 Nasal Cannula 2.0 28 86 18 99 08/16/19 19:40 99 Nasal Cannula 2.0 28 08/16/19 16:00 98.8 89 20 118/69 (85) 99 08/16/19 16:00 85 Intake and Output 08/16/19 08/17/19 19:00 07:00 Intake Total 0 ml 360 ml Output Total 500 ml Balance 0 ml -140 ml Intake Oral 0 ml 250 ml IV Total 110 ml Output Urine Total 500 ml # Voids 1 Laboratory Tests 08/17/19 05:42: White Blood Count 4.4L, Red Blood Count 2.61L, Hemoglobin 8.5L, Hematocrit 26.2L , Mean Corpuscular Volume 100H, Mean Corpuscular Hemoglobin 32.6H, Mean Corpuscular Hemoglobin Concent 32.6, Red Cell Distribution Width 13.2, Platelet Count 190, Mean Platelet Volume 7.9, Neutrophils (%) (Auto) 71.0, Lymphocytes (% ) (Auto) 20.8, Monocytes (%) (Auto) 6.3, Eosinophils (%) (Auto) 0.8, Basophils ( %) (Auto) 1.2, Sodium Level 142, Potassium Level 4.1, Chloride Level 106, Carbon Dioxide Level 25, Anion Gap 12, Blood Urea Nitrogen 23H, Creatinine 1.1, Estimat Glomerular Filtration Rate , Glucose Level 101, Calcium Level 9.3 Height (Feet): 5 Height (Inches): 5.00 Weight (Pounds): 157 General Appearance: WD/WN, alert Neck: supple Cardiovascular: regular rhythm Respiratory/Chest: chest wall non-tender, lungs clear, normal breath sounds Edema: no edema noted Arm (L), no edema noted Arm (R), no edema noted Leg (L), no edema noted Leg (R), no edema noted Pedal (L), no edema noted Pedal (R), no edema noted Generalized 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
[2019-08-17 15:53] VITALS: BP 135/63
--- NOTE | 2019-08-17 18:00 | General Progress Note ---
Assessment/Plan Problem List: (1) UTI (urinary tract infection) ICD Codes: N39.0 - Urinary tract infection, site not specified SNOMED: 27058546 (2) Pyelonephritis ICD Codes: N12 - Pyelonephritis SNOMED: 35810483 (3) Abdominal pain ICD Codes: R10.9 - Abdominal pain SNOMED: 10401068 (4) Kidney transplanted ICD Codes: Z94.0 - Kidney transplanted SNOMED: 596008630 (5) Pancytopenia ICD Codes: D61.818 - Other pancytopenia SNOMED: 590691909 Status: stable Assessment/Plan: aziothioprine reduced 50 mg qd as low wbc and Hb, ceftriaxone ongoing, CT abd pending Subjective Constitutional: Reports: weakness HEENT: Reports: no symptoms Cardiovascular: Reports: no symptoms Respiratory: Reports: no symptoms Gastrointestinal/Abdominal: Reports: abdominal pain, poor appetite Genitourinary: Reports: burning, incontinence Neurologic/Psychiatric: Reports: no symptoms Endocrine: Reports: no symptoms Hematologic/Lymphatic: Reports: anemia Allergies: Coded Allergies: No Known Allergies (Verified , 05/29/09) Objective Last 24 Hour Vital Signs Date Time Temp Pulse Resp B/P (MAP) Pulse Ox O2 Delivery O2 Flow Rate FiO2 08/17/19 16:00 85 08/17/19 15:53 97.4 79 20 135/63 (87) 99 08/17/19 14:42 136/64 08/17/19 12:00 97.7 82 20 136/64 (88) 100 08/17/19 12:00 82 08/17/19 11:35 80 18 100 Nasal Cannula 2.0 28 76 16 100 08/17/19 09:00 Nasal Cannula 2.0 08/17/19 08:30 81 144/64 08/17/19 08:28 81 144/64 08/17/19 08:00 90 08/17/19 08:00 97.4 90 18 144/64 (90) 97 08/17/19 07:27 88 18 99 Nasal Cannula 2.0 28 86 16 99 08/17/19 07:27 99 Nasal Cannula 2.0 28 08/17/19 05:21 137/60 08/17/19 04:00 98.7 87 20 137/60 (85) 97 08/17/19 04:00 84 08/17/19 00:41 85 18 99 Nasal Cannula 2.0 28 82 16 98 08/17/19 00:00 74 08/17/19 00:00 98.2 91 18 136/67 (90) 94 08/16/19 21:34 128/63 08/16/19 21:34 90 128/63 08/16/19 21:00 Nasal Cannula 2.0 08/16/19 20:00 80 08/16/19 20:00 98.1 90 20 128/63 (84) 98 08/16/19 19:40 89 20 99 Nasal Cannula 2.0 28 86 18 99 08/16/19 19:40 99 Nasal Cannula 2.0 28 Intake and Output 08/16/19 08/17/19 19:00 07:00 Intake Total 0 ml 360 ml Output Total 500 ml Balance 0 ml -140 ml Intake Oral 0 ml 250 ml IV Total 110 ml Output Urine Total 500 ml # Voids 1 Laboratory Tests 08/17/19 05:42: White Blood Count 4.4L, Red Blood Count 2.61L, Hemoglobin 8.5L, Hematocrit 26.2L , Mean Corpuscular Volume 100H, Mean Corpuscular Hemoglobin 32.6H, Mean Corpuscular Hemoglobin Concent 32.6, Red Cell Distribution Width 13.2, Platelet Count 190, Mean Platelet Volume 7.9, Neutrophils (%) (Auto) 71.0, Lymphocytes (% ) (Auto) 20.8, Monocytes (%) (Auto) 6.3, Eosinophils (%) (Auto) 0.8, Basophils ( %) (Auto) 1.2, Sodium Level 142, Potassium Level 4.1, Chloride Level 106, Carbon Dioxide Level 25, Anion Gap 12, Blood Urea Nitrogen 23H, Creatinine 1.1, Estimat Glomerular Filtration Rate , Glucose Level 101, Calcium Level 9.3 Height (Feet): 5 Height (Inches): 5.00 Weight (Pounds): 157 General Appearance: no apparent distress, alert EENT: normal ENT inspection Neck: normal alignment Cardiovascular: normal rate, regular rhythm Respiratory/Chest: lungs clear Abdomen: no organomegaly, tender, other - mild tender generalized Kade Cochran MD Aug 17, 2019 18:00
--- NOTE | 2019-08-17 19:27 | NUR ---
HAND-OFF: Report given to Breana. Endorsed plan of care. Patient is in stable condition.
[2019-08-17] MEDS ORDERED: Potassium Chloride 10 MEQ in D5 1/2NS 1,000 ML IV SCH (19:30)
--- NOTE | 2019-08-17 19:34 | NUR ---
NURSE NOTES: Received report from KEN Roberts. Patient is awake lying semi-pelaez's; resting comfortably. No signs of acute distress noted; complains of pain. On 2L nasal cannula. AOx4; able to make needs known. Checked IV site; patent and flushed. No erythema, bleeding, or infiltration noted. Bed at lowest position, brakes on, siderails up x3. Siderails padded following seizure precautions. Call light within reach. Will continue to monitor.
[2019-08-17 20:00] VITALS: BP 143/73
[2019-08-17] MEDS: cefTRIAXone 1gm/D5W 55ml IVPB SCH ×2 (21:11)
[2019-08-18] VITALS: BP 116/54
[2019-08-18] MEDS: Albuterol/Ipratropium 3ml neb HHN SCH ×3 (01:34→13:00)
[2019-08-18 04:00] VITALS: BP 138/65
--- NOTE | 2019-08-18 04:15 | Progress Note ---
DATE: 08/17/2019 CARDIOLOGY PROGRESS NOTE SUBJECTIVE: The patient has abdominal pain. No shortness of breath. No fevers or chills. No nausea or vomiting. Appetite is quite poor. OBJECTIVE: VITAL SIGNS: Blood pressure 136/64, heart rate 82, respirations 20. LUNGS: Clear. CARDIAC: Regular. Normal S1, S2. ABDOMEN: Soft. Mildly tender in the suprapubic region. Transplant site with mild tenderness on palpation, but unchanged from baseline. EXTREMITIES: With stump site clean and dry. No edema. Monitored rhythm is atrial paced and atrioventricular sequentially paced. Permanent pacemaker was interrogated today and noted to have adequate battery life and appropriate sensing and pacing function. LABORATORY DATA: White count 4.4, hemoglobin 8.5. Potassium 4.1, BUN 23, creatinine 1.1. IMPRESSION: 1. UTI. 2. Sepsis. 3. Metabolic and toxic encephalopathies. 4. Renal transplant. 5. Anemia, status post transfusion. 6. Permanent pacemaker with stable function. 7. Peripheral artery disease with amputation. 8. Hypertensive heart disease with controlled blood pressure and compensated diastolic congestive heart failure. 9. Acute on chronic kidney injury, resolving. PLAN: 1. Maintain adequate hydration. 2. Complete antimicrobials. 3. Maintain current cardiovascular regimen. 4. Outpatient pacemaker follow up. 5. Discontinue telemetry. Matthew Tinajero M.D. DR: ANDREI JOB#: [id number] CC:
[2019-08-18] MEDS: HydrALAZINE 25mg tab ORAL SCH (06:00)
[2019-08-18 06:43] LABS: BASOPHILS % (AUTO) 1.5 % (0.0-2.0); EOSINOPHILS % (AUTO) 1.6 % (0.0-3.0); HEMOGLOBIN 8.5 G/DL (12.0-16.0); LYMPHOCYTES % (AUTO) 24.5 % (20.0-45.0); MEAN CORPUSCULAR VOLUME 100 FL (80-99); MONOCYTES % (AUTO) 7.8 % (1.0-10.0); NEUTROPHILS % (AUTO) 64.6 % (45.0-75.0); PLATELET COUNT 181 K/UL (150-450); RED CELL DISTRIBUTION WIDTH 13.2 % (11.6-14.8); WHITE BLOOD COUNT 3.9 K/UL (4.8-10.8)
--- NOTE | 2019-08-18 06:51 | NUR ---
TRANSFER TO FLOOR: Report given to KEN Blevins. Patient was transferred to 4E Med-Surg floor from Telemetry unit without incident. No signs of acute distress noted. Patient taken off Tele box; tolerated well. Belongings list checked with patient and receiving RN. Bed at lowest position, brakes on, siderails up x3. Call light within reach.
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
[2019-08-18] MEDS ORDERED: Potassium Chloride 10 MEQ in D5 1/2NS 1,000 ML IV SCH ×2 (07:00→17:00)
[2019-08-18 07:05] LABS: ANION GAP 10 mmol/L (5-15); BLOOD UREA NITROGEN 21 mg/dL (7-18); CALCIUM 8.8 MG/DL (8.5-10.1); CARBON DIOXIDE 25 MMOL/L (21-32); CHLORIDE 106 MMOL/L (98-107); POTASSIUM 3.8 MMOL/L (3.5-5.1); SODIUM 141 MMOL/L (136-145)
--- NOTE | 2019-08-18 07:51 | NUR ---
HAND-OFF: Report given to KEN Washington.
[2019-08-18 08:00] VITALS: BP 145/71
--- NOTE | 2019-08-18 08:10 | NUR ---
pt complained of back pain, VS stable, 98% at RA. no Chest pain, no SOB noted. RLE BKE. pts on IVF. tolerating diet well, no N/V. bed in low position, bed alarm on. call light within reach, fall precaution maintained. will continue to monitor.
[2019-08-18] MEDS ORDERED: Omnipaque-300 100ml vial INJ PRN (08:30)
--- NOTE | 2019-08-18 08:42 | General Progress Note ---
Assessment/Plan Problem List: (1) Sepsis ICD Codes: A41.9 - Sepsis SNOMED: 43644662 (2) DVT (deep venous thrombosis) ICD Codes: I82.409 - Acute embolism and thrombosis of unspecified deep veins of unspecified lower extremity SNOMED: 499310502 (3) Dyspnea ICD Codes: R06.00 - Dyspnea, unspecified SNOMED: 457995556, 994297471 (4) Chronic heart failure ICD Codes: I50.9 - Heart failure, unspecified SNOMED: 80093494 (5) CHF exacerbation ICD Codes: I50.9 - Heart failure, unspecified SNOMED: 191058760, 63119001322813 Status: stable Assessment/Plan: ct abd pain rx prn diuresis monitor lytes iv abx o2 xarelto monitor for bleeding transplant meds per renal Subjective ROS Limited/Unobtainable: No Constitutional: Reports: malaise, weakness HEENT: Reports: no symptoms Cardiovascular: Reports: no symptoms Respiratory: Reports: no symptoms Gastrointestinal/Abdominal: Reports: abdominal pain Genitourinary: Reports: no symptoms Neurologic/Psychiatric: Reports: no symptoms Endocrine: Reports: no symptoms Hematologic/Lymphatic: Reports: anemia Allergies: Coded Allergies: No Known Allergies (Verified , 05/29/09) All Systems: reviewed and negative except above Subjective c/o abd pain. denies constipation or diarrhea. no fevers or chills. on abx. no nausea or vomiting. poor appetite npo for CT abd Objective Last 24 Hour Vital Signs Date Time Temp Pulse Resp B/P (MAP) Pulse Ox O2 Delivery O2 Flow Rate FiO2 08/18/19 07:52 99 Nasal Cannula 2.0 28 08/18/19 07:51 88 18 100 Nasal Cannula 2.0 86 18 99 08/18/19 06:00 138/65 08/18/19 04:00 98.6 80 18 138/65 (89) 99 08/18/19 01:34 85 18 100 Nasal Cannula 2.0 28 84 16 98 08/18/19 00:00 98.6 79 18 116/54 (74) 98 08/17/19 22:30 135/67 08/17/19 21:12 92 143/73 08/17/19 21:00 Nasal Cannula 2.0 08/17/19 20:15 99 Nasal Cannula 2.0 28 08/17/19 20:15 84 18 100 Nasal Cannula 2.0 28 86 16 99 08/17/19 20:00 98.7 92 20 143/73 (96) 100 08/17/19 20:00 90 08/17/19 16:00 85 08/17/19 15:53 97.4 79 20 135/63 (87) 99 08/17/19 14:42 136/64 08/17/19 12:00 97.7 82 20 136/64 (88) 100 08/17/19 12:00 82 08/17/19 11:35 80 18 100 Nasal Cannula 2.0 28 76 16 100 08/17/19 09:00 Nasal Cannula 2.0 Intake and Output 08/17/19 08/18/19 19:00 07:00 Intake Total 120 ml 591 ml Output Total 850 ml Balance -730 ml 591 ml Intake Oral 120 ml 120 ml IV Total 471 ml Output Urine Total 850 ml # Voids 2 2 # Bowel Movements 3 Laboratory Tests 08/18/19 05:10: White Blood Count 3.9L, Red Blood Count 2.60L, Hemoglobin 8.5L, Hematocrit 26.0L , Mean Corpuscular Volume 100H, Mean Corpuscular Hemoglobin 32.6H, Mean Corpuscular Hemoglobin Concent 32.5, Red Cell Distribution Width 13.2, Platelet Count 181, Mean Platelet Volume 7.9, Neutrophils (%) (Auto) 64.6, Lymphocytes (% ) (Auto) 24.5, Monocytes (%) (Auto) 7.8, Eosinophils (%) (Auto) 1.6, Basophils ( %) (Auto) 1.5, Sodium Level 141, Potassium Level 3.8, Chloride Level 106, Carbon Dioxide Level 25, Anion Gap 10, Blood Urea Nitrogen 21H, Creatinine 1.0, Estimat Glomerular Filtration Rate , Glucose Level 115H, Calcium Level 8.8 Height (Feet): 5 Height (Inches): 5.00 Weight (Pounds): 157 General Appearance: WD/WN, alert Neck: supple Cardiovascular: regular rhythm Respiratory/Chest: chest wall non-tender, lungs clear, normal breath sounds Abdomen: normal bowel sounds, soft, no organomegaly, no mass, tender Edema: no edema noted Arm (L), no edema noted Arm (R), no edema noted Leg (L), no edema noted Leg (R), no edema noted Pedal (L), no edema noted Pedal (R), no edema noted Generalized Objective right bka John Red MD Aug 18, 2019 08:42
[2019-08-18] MEDS ORDERED: azaTHIOprine 50 MG TAB ORAL SCH (09:00)
[2019-08-18] MEDS ORDERED: cycloSPORINE 100mg cap ORAL SCH (09:00)
[2019-08-18] MEDS ORDERED: Xarelto 10mg tab ORAL SCH (09:00)
--- NOTE | 2019-08-18 11:12 | Diagnostic Imaging Report ---
Indication: Abdominal pain Technique: Continuous helical transaxial imaging of the abdomen and pelvis was obtained from the lung bases to the pubic symphysis. No intravenous contrast was administered. Coronal 2-D reformats were also obtained. Automatic Exposure Control was utilized. Total Dose length Product (DLP): 972.[address] Dose Index Volume (CTDIvol): 17.3 mGy Comparison: 03/10/2019 Findings: Trace bilateral pleural effusions are present. Cardiomegaly is present. Bilateral lower lobe atelectasis versus pneumonia demonstrated. Trace pericardial fluid noted. Hiatal hernia is present. Aorta is moderately calcified. The kidneys are atrophic and there are multiple cysts within the kidneys. There is a transplanted the renal allograft in the right iliac fossa demonstrated. The urinary bladder is distended. In the right lower quadrant anterior abdominal wall, adjacent to the renal allograft there is a circumscribed focus measuring about 3 cm and appears stable from the last study. This has a rim of soft tissue attenuation and a central lower attenuation focus. This is probably a postsurgical fluid collection such as a hematoma or complex seroma. Cholecystectomy noted. Evaluation of solid organs is limited on this study due to the nonadministration of intravenous contrast material. Small umbilical hernia containing fat demonstrated as well as a small hernia just above the umbilicus containing fat. A normal retrocecal appendix is demonstrated. There is some deviation of the pelvic floor which appears to be fairly low. Cystocele or weakness of the pelvic floor is certainly a possibility. There is evidence of a previous femoral arterial cyst bypass graft surgery bilaterally. Obviously this is not evaluated adequately on the current study which is done without intravenous contrast and was not obtained as a CTA. There is subcutaneous infiltration posterior to the sacrum demonstrated. Correlate for decubitus ulcer. There is no evidence of a decubitus soft tissue abscess. Bones are diffusely osteopenic. There is narrowing of intervertebral discs and accompanying endplate osteophyte formation. Hypertrophied facet joints also demonstrated.. IMPRESSION: Bilateral lower lobe infiltrates versus atelectasis. Trace bilateral pleural effusions. Trace pericardial effusion. Right renal allograft. Atrophy of the [place] kidneys. Moderate atherosclerotic vascular disease. Suspected weakness of the pelvic floor or cystocele with apparent low position of the urinary bladder within the pelvis. Status post bilateral femoral arterial bypass graft surgery. Status post left hip fracture status post pinning. Status post cholecystectomy. Umbilical hernia containing fat. Small supraumbilical hernia containing fat. Other incidental findings as above The CT scanner at [facility] is accredited by the [employer] and the scans are performed using dose optimization techniques as appropriate to a performed exam including Automatic Exposure control.
[2019-08-18 12:00] VITALS: BP 142/71
--- NOTE | 2019-08-18 13:43 | NUR ---
CASE MANAGEMENT:REVIEW 08/18/19 SI:SEPSIS. DVT. CHF EXACERBATION 98.1 76 18 142/71 98% ON 2L/NC H/H-8.5/26.0 BUN+21 IS: DUONEB HHN Q6HRS RTC IV ROCEPHIN Q24 IVF+KCL@50/HR IV LASIX QD NORVASC PO QD IMURAN PO QD FLORINEF PO QD PROTONIX PO QD XARELTO PO QD HYDRALAZINE PO Q8HRS COREG PO Q12 CYLOSPORINE PO Q12 : TELEMETRY STATUS DCP: FROM [facility]
--- NOTE | 2019-08-18 13:46 | NUR ---
DISCHARGE PLANNING FAXED CLINICALS TO [facility] T: [phone]
[2019-08-18] MEDS ORDERED: HydrALAZINE 25mg tab ORAL SCH (14:00)
--- NOTE | 2019-08-18 14:31 | NUR ---
RD ASSESSMENT & RECOMMENDATIONS SEE CARE ACTIVITY FOR COMPLETE ASSESSMENT DAILY ESTIMATED NEEDS: Needs based on Sepsis, wound / 59kg 25-35 kcals/kg 6600-7793 total kcals 1.25-2 g protein/kg 74-118 g total protein 25-30 mL/kg 4825-8316 total fluid mLs NUTRITION DIAGNOSIS: Increased kcal and pro needs r/t wound healing as evidenced by sacral partial thickness wound. (CURRENT DIET: Cardiac soft) PO DIET RECOMMENDATIONS-->>> Low Na/ texture as tolerated ADDITIONAL RECOMMENDATIONS: * Obtain accurate CBW * Monitor lytes, replete as needed/ on lasix * Rec WC eval, pt h/o full thickness sacral wound Rec to add JANENE BID + Vit C 250mg daily + MVI x1 * Ensure TID w/ meals Monitor lytes, need for supplement change * Snacks in b/w meals as tolerated
--- NOTE | 2019-08-18 15:42 | NUR ---
DISCHARGE PLAN DISCHARGE DISCUSSED WITH DR BUCHANAN. DC ORDER GIVEN AND ENTERED PATIENT WILL RETURN TO THE [facility] SKILLED ROOM 305-2 T: [phone] FOR NURSE TO NURSE REPORT [facility] HAS BEEN ARRANGED FOR [address]
[2019-08-18 15:49] VITALS: BP 143/71
[2019-08-18] MEDS ORDERED: ROCEPHIN250 MG IVPB (16:45)
--- NOTE | 2019-08-18 16:46 | Nephrology Progress Note ---
Assessment/Plan Problem List: (1) UTI (urinary tract infection) (2) Pyelonephritis (3) Abdominal pain (4) Kidney transplanted (5) Pancytopenia Plan on reduced dose aziothioprine, f/u lab as outpatient Subjective Constitutional: Reports: weakness HEENT: Reports: no symptoms Genitourinary: Reports: incontinence Neurologic/Psychiatric: Reports: no symptoms Objective Objective Last 24 Hour Vital Signs Date Time Temp Pulse Resp B/P (MAP) Pulse Ox O2 Delivery O2 Flow Rate FiO2 08/18/19 15:49 98.2 80 18 143/71 (95) 96 08/18/19 15:45 98.1 08/18/19 15:07 142/71 08/18/19 14:42 78 20 100 Nasal Cannula 2.0 28 76 18 98 08/18/19 12:00 98.1 76 18 142/71 (94) 98 08/18/19 09:00 Nasal Cannula 2.0 08/18/19 08:52 81 145/71 08/18/19 08:51 81 145/71 08/18/19 08:00 98.0 81 19 145/71 (95) 99 08/18/19 07:52 99 Nasal Cannula 2.0 28 08/18/19 07:51 88 18 100 Nasal Cannula 2.0 28 86 18 99 08/18/19 06:00 138/65 08/18/19 04:00 98.6 80 18 138/65 (89) 99 08/18/19 01:34 85 18 100 Nasal Cannula 2.0 28 84 16 98 08/18/19 00:00 98.6 79 18 116/54 (74) 98 08/17/19 22:30 135/67 08/17/19 21:12 92 143/73 08/17/19 21:00 Nasal Cannula 2.0 08/17/19 20:15 99 Nasal Cannula 2.0 28 08/17/19 20:15 84 18 100 Nasal Cannula 2.0 28 86 16 99 08/17/19 20:00 98.7 92 20 143/73 (96) 100 08/17/19 20:00 90 Intake and Output 08/17/19 08/18/19 19:00 07:00 Intake Total 120 ml 591 ml Output Total 850 ml Balance -730 ml 591 ml Intake Oral 120 ml 120 ml IV Total 471 ml Output Urine Total 850 ml # Voids 2 2 # Bowel Movements 3 Laboratory Tests 08/18/19 05:10: White Blood Count 3.9L, Red Blood Count 2.60L, Hemoglobin 8.5L, Hematocrit 26.0L , Mean Corpuscular Volume 100H, Mean Corpuscular Hemoglobin 32.6H, Mean Corpuscular Hemoglobin Concent 32.5, Red Cell Distribution Width 13.2, Platelet Count 181, Mean Platelet Volume 7.9, Neutrophils (%) (Auto) 64.6, Lymphocytes (% ) (Auto) 24.5, Monocytes (%) (Auto) 7.8, Eosinophils (%) (Auto) 1.6, Basophils ( %) (Auto) 1.5, Sodium Level 141, Potassium Level 3.8, Chloride Level 106, Carbon Dioxide Level 25, Anion Gap 10, Blood Urea Nitrogen 21H, Creatinine 1.0, Estimat Glomerular Filtration Rate , Glucose Level 115H, Calcium Level 8.8 Height (Feet): 5 Height (Inches): 5.00 Weight (Pounds): 157 General Appearance: no apparent distress, alert EENT: normal ENT inspection Neck: normal alignment Cardiovascular: normal rate, regular rhythm Respiratory/Chest: lungs clear, normal breath sounds Abdomen: non tender, soft, tender, other - mild Extremities: other Neurologic: international travel consultant II-XII grossly normal Kade Cochran MD Aug 18, 2019 16:46
[2019-08-18] MEDS ORDERED: OXYCODONE-ACET1 EAC5 ORAL (16:47)
[2019-08-18] MEDS ORDERED: FUROSEMIDE10 MG/1 M1 IVF (16:51)
[2019-08-18] MEDS ORDERED: XARELTO15 MG ORAL (16:53)
[2019-08-18] MEDS ORDERED: TEMAZEPAM15 MG ORAL (16:55)
[2019-08-18] MEDS ORDERED: RESTORIL22.5 MG PO (16:55)
--- NOTE | 2019-08-18 17:13 | NUR ---
NURSE NOTES: received order to DC pt to SNF, pt stable condition. denies abd pain, no SOB noted. Belongings with pt, no home meds. pts will dc with IV and IV Abx per order. Dressing changed per wound nurse, sacral and left heel for protection. VS stable. notified Daughter [place] regarding dc. dc instruction given, verbalize understanding. waiting for transport to [facility]. Addendum: 08/18/19 at 1741 by Padmini Grajeda RN sister in law [place] , notified regarding dc.
[2019-08-18] MEDS ORDERED: cefTRIAXone 1 GM in D5W 55 ML IVPB SCH (20:00)
--- NOTE | 2019-08-18 21:03 | Progress Note ---
DATE: 08/18/2019 CARDIOLOGY PROGRESS NOTE SUBJECTIVE: Condition improved. Pacemaker was interrogated yesterday with normal findings. Abdominal pain persists. CT of the abdomen was completed findings notable only for trace pericardial effusion, atelectasis, no acute findings. PHYSICAL EXAMINATION: VITAL SIGNS: Blood pressure 142/71, pulse 78, respiratory rate 18. LUNGS: Clear. CARDIAC: Regular. Normal S1, S2. No rub ABDOMEN: Soft. EXTREMITIES: No edema. Stump site is clean and dry. IMPRESSION: 1. Recovering metabolic and toxic encephalopathy. 2. Urinary tract infection with recovered sepsis. 3. Permanent pacemaker. 4. Anemia of chronic kidney disease and chronic disease. 5. Renal transplant. 6. Peripheral artery disease with amputations and prior revascularization. 7. Abdominal pain may be due to gastroparesis. 8. Pericardial effusion of no hemodynamic significance. PLAN: 1. Antimicrobials. 2. Monitor renal function and renal parameters. 3. Transfuse for hemoglobin below 7.5 g. 4. Continue with Epogen. 5. No change in cardiovascular regimen at this time. Matthew Tinajero M.D. DR: Jessica JOB#: [id number] CC:
--- NOTE | 2019-08-19 10:16 | Discharge Summary ---
Discharge Summary Discharge Summary _ DATE OF ADMISSION: 08/12/2019 DATE OF DISCHARGE: 08/18/2019 DISCHARGED BY: Dr. Red REASON FOR ADMISSION: 79 years old female with past medical history of kidney transplant, hypertension , right BKA, history of DVT, GI bleeding, presented from the snf facility complaining of chest pain. Patient developed sudden onset of substernal chest pain. She denies shortness of breath. She reported mild nonproductive cough. Upon evaluation emergency room troponin was negative. EKG revealed Potassium 5.2 Creatinine 1.4. Urinalysis revealed Chest x-ray demonstrated interstitial edema/CHF. Patient started on empiric antibiotic and admitted for further management . CONSULTANTS: brokerage purchase and sale clerk Dr. Tinajero training administrator Dr. Cochran HOSPITAL COURSE: Patient initially admitted to monitored floor. Patient started on the IV antibiotic. Fleet Administrative Assistant follow. Echocardiogram demonstrated preserved ejection fraction of 60% with mild left ventricular hypertrophy. No evidence of wall motion abnormality. Mild aortic stenosis. Grade 2 left ventricular diastolic dysfunction. Mild to moderate tricuspid regurgitation. No mitral regurgitation. Right ventricular systolic pressure of 50 consistent with a moderate pulmonary hypertension. Serial troponins were negative. EKG revealed no acute ischemic changes. Patient was rule out for acute OH. Anticoagulation with Xarelto continued. Antihypertensive on the failure regimen was titrated. Hemoglobin hematocrit were closely monitor anemia work-up was consistent with anemia of chronic disease. Hemoglobin hematocrit remained stable prior to discharge hemoglobin 8.5 hematocrit 26. Patient was closely monitor for bleeding. GI prophylaxis provided. No evidence of bleeding. Blood sugar was managed was closely monitored and remained stable. Technical Support Analyst closely follow. Patient with a history of a kidney transplant. Patient was continue on home medication including Imuran cyclosporine and Florinef. Patient was on aziothiprine dose was reduced to 50 mg daily due to leukopenia and anemia. Technical Support Analyst recommended follow-up labs as outpatient. Renal parameters electrolytes are closely monitor BUN from 37 down to 21 and creatinine from 1.4 down to 1.0 upon discharge. Hemoglobin hematocrit were closely monitor his goal to keep hemoglobin above 7 hemoglobin hematocrit remained at baseline prior to discharge hemoglobin 8.5 hematocrit 26. Patient continuing Xarelto. No evidence of bleeding. Noted leukopenia with WBC trending down to lowest 3.9. As mentioned above doses as neutropenia was decreased. Technical Support Analyst recommended follow-up with count as outpatient. Urine culture revealed E. coli. Patient was on antibiotic. Abdominal ultrasound revealed no acute findings. Right renal allograft was unremarkable. Status post cholecystectomy. Small left pleural effusion. CT of the abdomen and pelvis revealed atelectasis trace bilateral pleural effusion right renal allograft atrophy of the [place] kidneys. Moderate atherosclerotic vascular disease. Pain management was addressed as needed. Supportive care provided. Patient clinically stabilized and was ready for transfer back to snf facility for continuation of care FINAL DIAGNOSES: Sepsis UTI/ pyelonephritis Acute on chronic diastolic congestive heart failure Permanent pacemaker Toxic and metabolic encephalopathy Acute on chronic kidney injury History of kidney transplant Hypertensive heart disease History of DVT, on chronic anticoagulation Moderate protein calorie malnutrition Anemia due to chronic kidney disease Degenerative aortic valve disease with mild aortic stenosis Chronic abdominal pain Diabetes mellitus type 2 Peripheral artery disease with right BKA. Pancytopenia DISCHARGE MEDICATIONS: See Medication Reconciliation list. DISCHARGE INSTRUCTIONS: Patient was discharged to the snf facility. Follow up with medical doctor at the facility. I have been assigned to dictate discharge summary for this account. I was not involved in the patient's management. Amy Morataya NP Aug 19, 2019 10:16
== END 2019-08-18 19:30 | DRG 871 ==
LOC: EDBD 11:05 → EMR 11:30 → EDBEDREQ 13:48 → 2E 14:13 → EDBEDREQ 14:51 → 2E 08-13 08:36 → 4E 08-18 06:30
DX: A41.9 Sepsis, unspecified organism (principal); I50.33 Acute on chronic diastolic (congestive) heart failure; G92 Toxic encephalopathy; N39.0 Urinary tract infection, site not specified; I24.9 Acute ischemic heart disease, unspecified; Z94.0 Kidney transplant status; I13.0 Hypertensive heart and chronic kidney disease with heart failure and stage 1 through stage 4 chronic kidney disease, or unspecified chronic kidney disease; N17.9 Acute kidney failure, unspecified; E44.0 Moderate protein-calorie malnutrition; D61.818 Other pancytopenia; Z89.511 Acquired absence of right leg below knee; Z86.718 Personal history of other venous thrombosis and embolism; I35.0 Nonrheumatic aortic (valve) stenosis; I36.1 Nonrheumatic tricuspid (valve) insufficiency; Z79.01 Long term (current) use of anticoagulants; N18.9 Chronic kidney disease, unspecified; Z95.0 Presence of cardiac pacemaker; D63.1 Anemia in chronic kidney disease; E11.22 Type 2 diabetes mellitus with diabetic chronic kidney disease; Z79.4 Long term (current) use of insulin; J44.9 Chronic obstructive pulmonary disease, unspecified; Z86.73 Personal history of transient ischemic attack (TIA), and cerebral infarction without residual deficits; E11.40 Type 2 diabetes mellitus with diabetic neuropathy, unspecified; F03.90 Unspecified dementia, unspecified severity, without behavioral disturbance, psychotic disturbance, mood disturbance, and anxiety; K21.9 Gastro-esophageal reflux disease without esophagitis; E11.319 Type 2 diabetes mellitus with unspecified diabetic retinopathy without macular edema; R09.02 Hypoxemia; I73.9 Peripheral vascular disease, unspecified; Z66 Do not resuscitate
CPT/HCPCS: 36415; 71045; 74176; 76700; 80048; 80053; 80061; 80158; 81003; 82607; 82746; 83540; 83550; 83735; 83880; 84443; 84484; 85007; 85025; 85610; 85730; 86850; 86900; 86901; 87081; 87086; 87181; 93005; 93306; 94640; 99285; J7620

== ENCOUNTER 2020-03-11 21:20 | Inpatient (IN) | payer MEDICARE, OTHER ==
[~2020-03-11] VITALS: Ht 162.6 cm; Wt 67.2 kg
[~2020-03-11 21:20] MED LIST changes: +ACETAMINOPHEN325 M1 ORAL; +FUROSEMIDE10 MG/1 M1 IVF; +MULTIVITAMINS1 EAC8 ORAL; +OXYCODONE-ACET1 EAC5 ORAL; +RESTORIL22.5 MG PO; +ROCEPHIN250 MG IVPB; +TEMAZEPAM15 MG ORAL
--- NOTE | 2020-03-11 21:33 | Emergency Room Report ---
History of Present Illness General Chief Complaint: possible uti Source: Family Member (Ezra Herrera DO) Present Illness HPI Patient has been having decreased oral intake family was concerned about possible UTI There was no reports of vomiting or diarrhea Patient denies any chest pain however she does have underlying dementia Family feels that the patient has been more weak than usual This does raise concern of possible UTI there was no other complaints of focal weakness Family denies any fevers (Ezra Herrera DO) Allergies: Coded Allergies: No Known Allergies (Verified , 05/29/09) Patient History Past Medical History: see triage record Reviewed Nursing Documentation: PMH: Agreed; PSxH: Agreed (Ezra Herrera DO) Nursing Documentation-PMH Hx Cardiac Problems: Yes Hx Hypertension: Yes Hx Pacemaker: Yes - left upper chest Hx Asthma: Yes Hx Diabetes: Yes Hx Cancer: No Hx Gastrointestinal Problems: No Hx Dialysis: No Hx Neurological Problems: Yes - right BKA Hx Cerebrovascular Accident: Yes Hx Seizures: Yes - LAST EPISODE 2011 Hx Memory Loss: Yes Hx Dizziness: Yes (Ezra Herrera DO) Review of Systems All Other Systems: negative except mentioned in HPI (Ezra Herrera DO) Physical Exam 98% ra Sp02 EP Interpretation: reviewed, normal General Appearance: no apparent distress Head: normocephalic, atraumatic Eyes: bilateral eye PERRL, bilateral eye EOMI ENT: hearing grossly normal, normal pharynx, TMs + canals normal, uvula midline Neck: full range of motion, supple, no meningismus, no bony tend Respiratory: lungs clear, normal breath sounds, no rhonchi, no respiratory distress, no retraction, no accessory muscle use Cardiovascular #1: normal peripheral pulses, regular rate, rhythm, no edema, no gallop, no JVD, no murmur Gastrointestinal: normal bowel sounds, non tender, soft, no mass, no organomegaly, non-distended, no guarding, no hernia, no pulsatile mass, no rebound Genitourinary: no CVA tenderness Musculoskeletal: other - Right below the knee amputation Neurologic: motor strength/tone normal, sensory intact, responsive Psychiatric: mood/affect normal Skin: no rash Lymphatic: normal inspection, no adenopathy (Ezra Herrera DO) Medical Decision Making Diagnostic Impression: Primary Impression: UTI (urinary tract infection) ER Course Patient signed out to me pending laboratory studies. Patient has a history of UTI and presented from home due to concern for UTI. Urinalysis did show evidence of UTI. Vital signs were otherwise stable. No signs of sepsis. No leukocytosis. I did discuss the case with patient's primary care doctor and he wished to admit for IV antibiotics. Patient was a very difficult IV access in the ER so I started patient on p.o. antibiotics overnight and patient will have PICC line placed in the morning while inpatient. Patient did not require central venous access. (Juan Miguel Eldridge M.D.) Disposition: ADMITTED INPATIENT Condition: Serious MacysandraEzra DO Mar 11, 2020 21:33 Juan Miguel Eldridge M.D. Mar 12, 2020 04:16
--- NOTE | 2020-03-11 21:42 | NUR ---
Liya, grand-daughter, , . Both phone number are suitable for contact information
[2020-03-11 21:45] VITALS: BP 126/98
--- NOTE | 2020-03-11 22:19 | Diagnostic Imaging Report ---
INDICATION: Chest pain COMPARISON: 08/15/2019 FINDINGS: Elevated right hemidiaphragm. Left chest wall cardiac pacer with lead extending into the right heart. Single frontal view demonstrates a normal cardiomediastinal silhouette. The lungs are clear. No pleural effusions. The visualized osseous structures are within normal limits. IMPRESSION: No acute cardiopulmonary disease.
[2020-03-11 23:45] VITALS: BP 122/88
--- NOTE | 2020-03-11 23:45 | NUR ---
ED Nurse Note: Pt brought to ER by granddaughter, pt reports pain with urination for several days as well as abdominal pain. VSS pt is a poor historian, below knee R amputation present
[2020-03-12] LABS: BASOPHILS % (AUTO) 2.3 % (0.0-2.0); EOSINOPHILS % (AUTO) 0.6 % (0.0-3.0); HEMATOCRIT 33.9 % (37.0-47.0); HEMOGLOBIN 12.3 G/DL (12.0-16.0); MEAN CORPUSCULAR VOLUME 89 FL (80-99); MONOCYTES % (AUTO) 9.5 % (1.0-10.0); NEUTROPHILS % (AUTO) 64.6 % (45.0-75.0); PLATELET COUNT 191 K/UL (150-450); RED BLOOD COUNT 3.82 M/UL (4.20-5.40); RED CELL DISTRIBUTION WIDTH 13.3 % (11.6-14.8); WHITE BLOOD COUNT 6.6 K/UL (4.8-10.8)
[2020-03-12] LABS: APPEARANCE,URINE TURBID; BILIRUBIN, URINE NEGATIVE (NEGATIVE); GLUCOSE, URINE (UA) NEGATIVE (NEGATIVE); KETONES,URINE 2+ (NEGATIVE); LEUKOCYTE ESTERASE ,URINE 3+ (NEGATIVE); NITRITE,URINE NEGATIVE (NEGATIVE); PH,URINE 8 (4.5-8.0); PROTEIN,URINE 3+ (NEGATIVE); UROBILINOGEN,URINE NORMAL MG/DL (0.0-1.0)
[2020-03-12 00:10] LABS: ANION GAP 18 mmol/L (5-15); BLOOD UREA NITROGEN 26 mg/dL (7-18); CALCIUM 10.1 MG/DL (8.5-10.1); CARBON DIOXIDE 21 MMOL/L (21-32); CHLORIDE 102 MMOL/L (98-107); CREATININE 1.4 MG/DL (0.55-1.30); POTASSIUM 3.8 MMOL/L (3.5-5.1); SODIUM 140 MMOL/L (136-145)
[2020-03-12 00:23] LABS: ALANINE AMINOTRANSFERASE 6 U/L (12-78); ALBUMIN 3.5 G/DL (3.4-5.0); ALBUMIN/GLOBULIN RATIO 0.7 (1.0-2.7); ALKALINE PHOSPHATASE 76 U/L (46-116); ASPARTATE AMINO TRANSFERASE 21 U/L (15-37); BILIRUBIN,TOTAL 1.1 MG/DL (0.2-1.0); CREATINE KINASE 41 U/L (26-308)
[2020-03-12 00:30] LABS: BILIRUBIN,DIRECT 0.3 MG/DL (0.0-0.3)
--- NOTE | 2020-03-12 01:00 | NUR ---
ED Nurse Note: Unable to obtain IV access, ERMD and admitting dr chitra. Pt resting in bed with eyes closed non-labored breathing no signs of distress. will continue to monitor
[2020-03-12] MEDS ORDERED: Lidocaine 1% Plain 30 ml INJ ONE (01:45)
[2020-03-12] MEDS ORDERED: Heparin1,000 units/500ml Premix(Conc:2 units/ml) IV ONE (01:45)
[2020-03-12 02:00] VITALS: BP 121/87
[2020-03-12] MEDS ORDERED: Cephalexin 500mg cap ORAL ONE (03:15)
--- NOTE | 2020-03-12 03:30 | NUR ---
TRANSFER TO FLOOR: Patient transferred to as ordered, per DR Estevez. Report given to KEN Vigil. Belongings and medications given to . Family and or S/O informed of transfer.
--- NOTE | 2020-03-12 04:00 | NUR ---
NURSE NOTES: Received report from leydi. patient is transferred per dafne accompanied by ER staff. no iv access. per leydi. is aware and "patient is gonna have picc line placement today". leydi states that they didn't swab her for cre/vre. room air. no sob. noted with skin issues on the left foot. patient has right BKA. belongings was on the bedside with $50, prefers to keep it. consent for PICC LINE signed by the patient. oriented to room set up. bed locked and in lowest position. call light and light button within easy reach. bed alarm on. dr. vicente put in the admission orders. charge nurse made aware. 135/70, 79bpm, 20 cpm, 97.9F, 98%.
[2020-03-12] MEDS: HydrALAZINE 25mg tab ORAL SCH ×3 (06:07→21:10)
[2020-03-12] MEDS ORDERED: azaTHIOprine 50 MG TAB ORAL SCH (06:30)
[2020-03-12] MEDS ORDERED: Lidocaine 1% Plain 30 ml INJ SCH (06:45)
[2020-03-12] MEDS ORDERED: Heparin1,000 units/500ml Premix(Conc:2 units/ml) IV SCH (06:45)
[2020-03-12] MEDS ORDERED: Heparin1,000 units/500ml Premix(Conc:2 units/ml) IV PRN (07:00)
[2020-03-12] MEDS ORDERED: Lidocaine 1% Plain 30 ml INJ PRN (07:00)
--- NOTE | 2020-03-12 07:10 | NUR ---
NURSE NOTES: Received patient in bed. Awake, A/O x3. On room air. Patient denies pain, no signs of distress at this time. Bed low and locked.
--- NOTE | 2020-03-12 07:22 | NUR ---
HAND-OFF: Report given to chiara dickey. patient is awake in stable condition. not in any form of respiratory distress. plan of care endorsed.
[2020-03-12 08:00] VITALS: BP 122/58
--- NOTE | 2020-03-12 08:00 | NUR ---
NURSE NOTES: Patient does not remember the frequency on PO imuran. will ask supervisor personnel clerks on file.
--- NOTE | 2020-03-12 08:30 | NUR ---
NURSE NOTES: Granddaughter ([place]) contact for frequency of PO imuran.
[2020-03-12] MEDS ORDERED: Cephalexin 500mg cap ORAL SCH (09:00)
[2020-03-12] MEDS ORDERED: cycloSPORINE 100mg cap ORAL SCH (09:00)
[2020-03-12] MEDS: Xarelto 10mg tab ORAL SCH (09:09)
[2020-03-12] MEDS: Lyrica 75mg cap ORAL SCH ×3 (09:10→18:16)
[2020-03-12] MEDS: Multivitamin w/Minerals tab ORAL SCH (09:10)
[2020-03-12] MEDS: cycloSPORINE 100mg cap ORAL SCH ×2 (09:10→21:11)
--- NOTE | 2020-03-12 10:30 | NUR ---
NURSE NOTES: Granddaughter (Liya) does not know frequency for Imuran Po medication. Will contact doctor.
[2020-03-12 12:00] VITALS: BP 127/73
--- NOTE | 2020-03-12 12:06 | Consultation ---
History of Present Illness General Date patient seen: Mar 12, 2020 Reason for Hospitalization: Abdominal Pain Present Illness HPI This is a very pleasant 80-year-old female multi-medical comorbidities who presents [facility] complaining of abdominal pain. States she has lower abdominal pain. decreased appetite. no n/v. no fever or chills. abnormal labs. admitted for care and management. surgery called to evaluate and assist with care. patient seen, chart reviewed, patient examined. c/o mainly RLQ/pelvic discomfort. on exam prior surgical incision noted patient unable to provide history as to prior intervention but cannot recall. noted mass RLQ Allergies: Coded Allergies: No Known Allergies (Verified , 05/29/09) COVID-19 Screening Contact w/high risk pt: No Recent Travel to affected area: No Experienced COVID-19 symptoms?: No Medication History Scheduled Amlodipine Besylate* (Amlodipine Besylate*), 5 MG ORAL IN THE MORNING DAILY, ( Reported) Azathioprine* (Imuran*), 75 MG PO IN THE MORNING DAILY, (Reported) Carvedilol* (Carvedilol*), 3.125 MG ORAL EVERY 12 HOURS, (Reported) Ceftriaxone Sod (Rocephin), 1 MG IVPB DAILY, (Reported) Cyclosporine* (Cyclosporine*), 100 MG PO BID, (Reported) Fludrocortisone Acetate (Fludrocortisone Acetate), 0.1 MG PO IN THE MORNING DAILY, (Reported) Furosemide (Furosemide), 10 MG IVF DAILY, (Reported) Hydralazine Hcl* (Hydralazine Hcl*), 25 MG ORAL EVERY 8 HOURS Hydrocodone Bit/Acetaminophen 10-325* ([place] 10-325*), 1 TAB ORAL DAILY, ( Reported) Mirtazapine* (Mirtazapine*), 15 MG ORAL BEDTIME, (Reported) Multivitamin With Minerals (Multivitamins With Minerals*), 1 TAB ORAL DAILY, ( Reported) Pantoprazole* (Protonix*), 40 MG ORAL DAILY Pregabalin* (Lyrica*), 75 MG ORAL THREE TIMES A DAY, (Reported) Rivaroxaban (Xarelto), 10 MG ORAL DAILY, (Reported) Temazepam (Temazepam*), 15 MG ORAL BEDTIME, (Reported) Scheduled PRN Acetaminophen* (Acetaminophen 325MG Tablet*), 650 MG ORAL Q4H PRN for Mild Pain (Pain Scale 1-3), (Reported) Oxycodone Hcl/Acetaminophen 10-325* (Oxycodone-Acetaminophen 10-325*), 1 TAB ORAL Q4H PRN for For Pain, (Reported) Patient History History Provided By: Patient, Medical Record, PMD Healthcare decision maker Resuscitation status Advanced Directive on File Past Medical/Surgical History Past Medical/Surgical History: (1) Coagulopathy (2) Respiratory distress (3) Gangrene (4) Supraventricular tachycardia (5) Abdominal abscess (6) Pneumonia (7) Thrombophlebitis arm (8) Right lower quadrant abscess (9) Incontinence of urine in female (10) Dyspnea (11) Decubitus ulcer of sacral area (12) Encephalopathy acute (13) Acute GI bleeding (14) Failure to thrive in adult (15) Dehydration (16) Phantom limb pain (17) Peripheral vascular disease (18) Hypomagnesemia (19) Ischemia of extremity (20) Syncope (21) YEHUDA (acute kidney injury) (22) GIB (gastrointestinal bleeding) (23) Colitis (24) Diarrhea (25) Syncopal episodes (26) Diastolic CHF with preserved left ventricular function, NYHA class 2 (27) Urinary tract infection (28) Hypoalbuminemia due to protein-calorie malnutrition (29) Hydronephrosis (30) Urinary retention (31) ACS (acute coronary syndrome) (32) Chest pain (33) Chronic heart failure (34) Dyspnea (35) Sepsis (36) DVT (deep venous thrombosis) (37) Pyelonephritis (38) Pancytopenia (39) LEFT FOOT DTI (40) UTI (urinary tract infection) (41) Abdominal pain Review of Systems Review of Symptoms General ROS: no weight loss or fever Psychological ROS: no depression or mood changes, no memory loss Ophthalmic ROS: no visual changes or eye irritation ENT ROS: no nasal congestion, hearing loss, dizziness Allergy and Immunology ROS: no allergic symptoms or urticaria Hematological and Lymphatic ROS: no swollen glands, unusual bleeding or bruising Endocrine ROS: no polyuria, polydipsia, weight changes, temperature intolerance Respiratory ROS: no cough, shortness of breath, or wheezing Cardiovascular ROS: no chest pain or dyspnea on exertion Gastrointestinal ROS: ++ abdominal pain, bright red blood in stool. Musculoskeletal ROS: no myalgias or arthralgias Neurological ROS: no TIA or stroke symptoms Dermatological ROS: no new or changing skin lesions, rashes or pruritis Physical Exam Physical Exam General appearance: alert, cooperative, no distress, appears stated age Head: Normocephalic, without obvious abnormality, atraumatic Eyes: conjunctivae/corneas clear. PERRL, EOM's intact. Fundi benign Throat: Lips, mucosa, and tongue normal. Teeth and gums normal Neck: supple, symmetrical, trachea midline, no adenopathy, thyroid: not enlarged, symmetric, no tenderness/mass/nodules, no carotid bruit and no JVD Lungs: clear to auscultation bilaterally Heart: regular rate and rhythm, S1, S2 normal, no murmur, click, rub or gallop Abdomen: soft, RLQ-tender. Bowel sounds normal. abnormal mass RLQ/pelvis masses , no organomegaly Extremities: extremities normal, atraumatic, no cyanosis or edema Pulses: 2+ and symmetric Skin: Skin color, texture, turgor normal. No rashes or lesions Neurologic: Grossly normal Last 24 Hour Vital Signs Date Time Temp Pulse Resp B/P (MAP) Pulse Ox O2 Delivery O2 Flow Rate FiO2 03/12/20 09:11 79 122/58 03/12/20 09:11 79 122/58 03/12/20 09:00 Room Air 03/12/20 08:00 97.0 79 18 122/58 (79) 98 03/12/20 06:07 145/76 03/12/20 04:18 Room Air 03/12/20 03:30 99.0 80 16 121/87 97 Room Air 03/12/20 02:00 99.0 80 16 121/87 97 Room Air 03/11/20 23:45 99.0 82 16 122/88 98 Room Air 03/11/20 21:45 92 18 Room Air 03/11/20 21:45 99.0 86 18 126/98 97 Room Air 03/11/20 21:37 99.0 92 18 126/98 (107) 97 Room Air Intake and Output 03/11/20 03/12/20 19:00 07:00 Intake Total 150 ml Balance 150 ml Intake Oral 150 ml Laboratory Tests Test 03/11/20 23:30 03/11/20 23:35 Urine Color Urine Appearance Turbid Urine pH 8 (4.5-8.0) Urine Specific Reading 1.015 (1.005-1.035) Urine Protein 3+ (NEGATIVE) H Urine Glucose (UA) Negative (NEGATIVE) Urine Ketones 2+ (NEGATIVE) H Urine Blood 4+ (NEGATIVE) H Urine Nitrite Negative (NEGATIVE) Urine Bilirubin Negative (NEGATIVE) Urine Urobilinogen Normal MG/DL (0.0-1.0) Urine Leukocyte Esterase 3+ (NEGATIVE) H Urine RBC 2-4 /HPF (0 - 2) H Urine WBC 10-15 /HPF (0 - 2) H Urine Squamous Epithelial Cells None /LPF (NONE/OCC) Urine Bacteria Many /HPF (NONE) H White Blood Count 6.6 K/UL (4.8-10.8) Red Blood Count 3.82 M/UL (4.20-5.40) L Hemoglobin 12.3 G/DL (12.0-16.0) Hematocrit 33.9 % (37.0-47.0) L Mean Corpuscular Volume 89 FL (80-99) Mean Corpuscular Hemoglobin 32.2 PG (27.0-31.0) H Mean Corpuscular Hemoglobin Concent 36.2 G/DL (32.0-36.0) H Red Cell Distribution Width 13.3 % (11.6-14.8) Platelet Count 191 K/UL (150-450) Mean Platelet Volume 8.6 FL (6.5-10.1) Neutrophils (%) (Auto) 64.6 % (45.0-75.0) Lymphocytes (%) (Auto) 23.0 % (20.0-45.0) Monocytes (%) (Auto) 9.5 % (1.0-10.0) Eosinophils (%) (Auto) 0.6 % (0.0-3.0) Basophils (%) (Auto) 2.3 % (0.0-2.0) H Sodium Level 140 MMOL/L (136-145) Potassium Level 3.8 MMOL/L (3.5-5.1) Chloride Level 102 MMOL/L (98-107) Carbon Dioxide Level 21 MMOL/L (21-32) Anion Gap 18 mmol/L (5-15) H Blood Urea Nitrogen 26 mg/dL (7-18) H Creatinine 1.4 MG/DL (0.55-1.30) H Estimat Glomerular Filtration Rate 43.6 mL/min (>60) Glucose Level 107 MG/DL (74-106) H Calcium Level 10.1 MG/DL (8.5-10.1) Total Bilirubin 1.1 MG/DL (0.2-1.0) H Direct Bilirubin 0.3 MG/DL (0.0-0.3) Aspartate Amino Transf (AST/SGOT) 21 U/L (15-37) Alanine Aminotransferase (ALT/SGPT) 6 U/L (12-78) L Alkaline Phosphatase 76 U/L (46-116) Total Creatine Kinase 41 U/L (26-308) Troponin I 0.035 ng/mL (0.000-0.056) Total Protein 8.3 G/DL (6.4-8.2) H Albumin 3.5 G/DL (3.4-5.0) Globulin 4.8 g/dL Albumin/Globulin Ratio 0.7 (1.0-2.7) L Lipase 80 U/L (73-393) Height (Feet): 5 Height (Inches): 4.00 Weight (Pounds): 147 Medications Current Medications Medications (Trade) Dose Ordered Sig/Toya Route PRN Reason Start Time Stop Time Status Last Admin Dose Admin Acetaminophen (Tylenol) 650 mg Q4H PRN ORAL Mild Pain (Pain Scale 1-3) 03/12/20 01:45 04/11/20 01:44 Amlodipine Besylate (Norvasc) 5 mg DAILY ORAL 03/12/20 09:00 04/11/20 08:59 03/12/20 09:11 Azathioprine (Imuran) 75 mg BIAC ORAL 03/12/20 06:30 06/10/20 06:29 UNV Carvedilol (Coreg) 3.125 mg EVERY 12 HOURS ORAL 03/12/20 09:00 04/11/20 08:59 03/12/20 09:11 Ceftriaxone Sodium (Rocephin) 1 mg DAILY IVP 03/12/20 09:00 03/19/20 08:59 UNV Chlorhexidine Gluconate (Carissa-Hex 2%) 1 applic DAILY@2000 TOPIC 03/12/20 20:00 06/10/20 19:59 Cyclosporine (Neoral) 100 mg Q12HR ORAL 03/12/20 09:00 06/10/20 08:59 03/12/20 09:10 Fludrocortisone Acetate (Florinef) 0.1 mg DAILY ORAL 03/12/20 09:00 04/11/20 08:59 03/12/20 09:11 Heparin Sodium/ Sodium Chloride (Heparin 1000 units/500ml Premix) 1,000 unit ONCE IV 03/12/20 06:45 03/12/20 21:00 Heparin Sodium/ Sodium Chloride (Heparin 1000 units/500ml Premix) 1,000 unit ONCE PRN IV PICC PLACEMENT 03/12/20 07:00 03/12/20 23:59 Hydralazine HCl (Apresoline) 25 mg EVERY 8 HOURS ORAL 03/12/20 06:00 06/10/20 05:59 03/12/20 06:07 Lidocaine HCl (Xylocaine 1% 30ml) 30 ml ONCE INJ 03/12/20 06:45 03/12/20 21:00 Lidocaine HCl (Xylocaine 1% 30ml) 30 ml ONCE PRN INJ PICC PLACEMENT 03/12/20 07:00 03/14/20 23:59 Mirtazapine (Remeron) 15 mg BEDTIME ORAL 03/12/20 21:00 06/10/20 20:59 Multivitamins Therapeutic (Therapeutic Multivitamin) 1 ea DAILY ORAL 03/12/20 09:00 04/11/20 08:59 03/12/20 09:10 Oxycodone/ Acetaminophen (Percocet 10/325) 1 tab Q4H PRN ORAL For Pain 03/12/20 01:45 03/19/20 01:44 03/12/20 11:47 Pantoprazole (Protonix) 40 mg DAILY ORAL 03/12/20 09:00 04/11/20 08:59 03/12/20 09:10 Pregabalin (Lyrica) 75 mg THREE TIMES A DAY ORAL 03/12/20 09:00 04/11/20 08:59 03/12/20 09:10 Rivaroxaban (Xarelto) 10 mg DAILY ORAL 03/12/20 09:00 06/10/20 08:59 03/12/20 09:09 Temazepam (Restoril) 15 mg BEDTIME ORAL 03/12/20 21:00 03/19/20 20:59 Assessment/Plan Problem List: (1) Abdominal pain Assessment & Plan: 80F with abdominal pain, decreased appetite, abnormal labs. Chest x-ray noted. On examination she has an abnormal mass palpated in the right lower quadrant around the prior incision. Unsure if scar tissue versus cyst versus infectious process. She is definitely tender in uncomfortable around this is mobile and difficult to palpating complete given discomfort. CT abdomen pelvis with oral contrast ordered. Hold on IV contrast given renal insufficiency. IV fluids IV antibiotics A.m. labs We will follow with recommendations thank you for let me participate in patient' s care ICD Codes: R10.9 - Abdominal pain SNOMED: [id number] Thomas Franklin Mar 12, 2020 12:06
[2020-03-12] MEDS: cefTRIAXone 1gm/D5W 55ml IVPB SCH ×2 (13:00)
--- NOTE | 2020-03-12 13:00 | NUR ---
NURSE NOTES: Dr. Red contacted for PO imuran frequency. will order.
--- NOTE | 2020-03-12 13:30 | History and Physical Report ---
DATE OF ADMISSION: 03/12/2020 CHIEF COMPLAINT: Abdominal pain, urinary tract infection. HISTORY OF PRESENT ILLNESS: The patient is an 80-year-old female with a history of BKA, hypertension, and DVT. She has a history of kidney transplant, who presented from home with complaints of abdominal pain, dysuria, frequency, and urgency. The patient had been doing well until a week prior to admission. She developed recurrent incontinence and dysuria. She was seen in the ER and diagnosed with UTI. Because of her history multidrug resistant urinary tract infection, she is now admitted for further evaluation and care. PAST MEDICAL HISTORY: As above. PAST SURGICAL HISTORY: As above. CURRENT MEDICATIONS: Reconciled and reviewed. ALLERGIES: None. FAMILY HISTORY: None. SOCIAL HISTORY: Negative for tobacco, ethanol, or drugs. She lives with her granddaughter. PHYSICAL EXAMINATION: VITAL SIGNS: Temperature 99, pulse 80, respirations 16, blood pressure 121/87. GENERAL: The patient is well developed, in no apparent distress. HEART: Regular rate and rhythm. LUNGS: Clear. ABDOMEN: Soft, nontender, nondistended. EXTREMITIES: Without clubbing, cyanosis, or edema. LABORATORY DATA: Sodium 140, potassium 3.8. Creatinine was 1.4. White count 6, hemoglobin 12. Troponin was 0.035. UA showed 10 to 15 wbc's with 3+ leukocyte esterase positive. ASSESSMENT: This is an 80-year-old female with a history of kidney transplant, hypertension, and history of DVT, admitted with urinary tract infection. PLAN: 1. Gentle hydration. 2. IV antibiotics. 3. Resume transplant medications. 4. Renal and Cardiology evaluations will be obtained. John Red M.D. DR: KAYLIN JOB#: [id number] CC:
--- NOTE | 2020-03-12 13:57 | NUR ---
INTERQUAL CRITERIA MET
--- NOTE | 2020-03-12 14:30 | NUR ---
NURSE NOTES: Patient returned from midline procedure. Midline placed in Right upper arm double lumen.
--- NOTE | 2020-03-12 14:36 | NUR ---
RADIOLOGY NOTE: RIGHT UPPER EXTREMITY MIDLINE PLACED.
--- NOTE | 2020-03-12 15:19 | NUR ---
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 98.9 HR 92 RR 18 B/P 126/98 BUN 26 CR 1.4 UA+ PROTEIN,KETONES,BACTERIA,LEUKOCYTE ESTERASE,RBC,WBC CXR= NO ACUTE DISEASE IS: IV BOLUS NS 500ML TYLENOL ADMITTED TO MED/SURG MED/SURG STATUS DCP RETURN HOME
[2020-03-12 16:00] VITALS: BP 126/59
--- NOTE | 2020-03-12 16:36 | Diagnostic Imaging Report ---
Indication: Lower abdominal pain, decreased appetite Technique: Spiral acquisitions obtained through the abdomen and pelvis. Patient ingested oral contrast. No IV contrast utilized, per referring physician request.. Multiplanar reconstructions were generated. Total dose length product 307 mGycm. CTDIvol(s) 6 mGy. Dose reduction achieved using automated exposure control Comparison: 08/18/2019 Findings: No evidence of colonic diverticulosis or diverticulitis. Considerable fluid is seen within the colon. The colon wall does not appear to be thickened, however. The appendix is normal. No small bowel distention. Ingested enteric contrast has traversed the entirety of small bowel and reaches the ascending colon. The distal esophagus, stomach, duodenum are unremarkable. Lack of IV contrast limits assessment of the solid organs. There is a right iliac fossa transplant kidney. No evidence of hydronephrosis. No significant hydroureter. Previously demonstrated mild hydronephrosis has resolved. The kidney also appears smaller than on the previous exam. There is very slight stranding of the perinephric fat adjacent to the upper pole. The bladder is somewhat thick-walled, apparently more so than on the previous exam. The bilateral [place] kidneys are atrophic, demonstrates multiple cysts and calcifications. The gallbladder has been removed. The liver, spleen, pancreas, adrenals are unremarkable. No biliary ductal dilatation. No retroperitoneal or mesenteric mass or adenopathy. No pelvic mass or adenopathy. The uterus and adnexal structures are not visualized. Again demonstrated is thickening of the subcutaneous fat superficial to the sacrum and coccyx. There is infiltration of the left lower buttock region subcutaneous fat also demonstrated. There is a 3 cm cystic lesion with a definable rim in the subcutaneous fat of the right upper pelvis superficial to the transplant kidney. There is a small fat-containing umbilical hernia and an adjacent fat-containing ventral hernia. There are degenerative changes of the lumbar spine. There is evidence of prior dialysis graft placement in both groins. Surgical hardware is seen in the left hip. Pacemaker wires are seen within the heart. Previously demonstrated bilateral pleural effusions are no longer evident. A bulla is again demonstrated at the left lung base. Impression: Fluid-filled colon, could indicate a diarrheal illness. No evidence of small bowel obstruction or other GI tract pathology. Mild bladder wall thickening, could indicate cystitis Right renal transplant kidney again demonstrated. Previously demonstrated transplant kidney hydronephrosis is not evident. Slight infiltration of the fat superior to the upper pole of the right kidney, of uncertain significance but could indicate a degree of perinephric inflammation Retrococcygeal and retrosacral decubitus changes. Evidence of decubitus changes of the left lower buttock region as well. Correlate with clinical findings Postsurgical changes, as described, including prior cholecystectomy, evidence of prior hysterectomy, left hip surgery, bilateral groin dialysis graft placement, pacemaker Small left lower lobe bulla Other findings as noted, including degenerative spondylosis, stable subcutaneous right upper pelvic lesion The CT scanner at [facility] is accredited by the [employer] and the scans are performed using protocols designed to limit radiation exposure to as low as reasonably achievable to attain images of sufficient resolution adequate for diagnostic evaluation.
--- NOTE | 2020-03-12 16:42 | Brief Operative Note ---
Immediate Post Operative Note Operative Note Pre-op Diagnosis: needs terminal superintendent IV access Procedure: PICC Post-op Diagnosis: same as pre-op Surgeon: Maira Berrios Anesthesia: local Specimen: none Complications: none Fluids: none Implant(s) used?: No Jama Berrios MD Mar 12, 2020 16:41
[2020-03-12] MEDS: Meropenem 1 GM in NS 55 ML IVPB SCH (18:16)
--- NOTE | 2020-03-12 18:18 | Diagnostic Imaging Report ---
Indications: Needs long-term IV access Technique: Ultrasound confirms patent compressible right brachial vein. Total sterile technique, including sterile probe cover and sterile gel, hat, mask, sterile gown, large sterile drape, and preparation with 2% chlorhexidine utilized. Local anesthesia with 1% lidocaine. Under real-time ultrasound guidance, puncture } vein using 21-gauge needle, documented and archived, passage 0.018 guidewire under direct fluoroscopy, which would not pass beyond the level of the subclavian vein. A 4 [place] peel-away sheath was inserted. This was used to insert a 5 [place] Kumpe catheter, which was used to direct the guidewire into the right atrium. The wire was used to determine the appropriate catheter length. The Kumpe catheter was removed. 4 [place] dual-lumen power PICC cut to 46 cm. It was inserted through the peel-away sheath. However, the catheter would not pass beyond the level of the subclavian vein. Multiple attempts made at manipulating it passed, including placement of a second guidewire. This was unsuccessful. The catheter was then regards to 26 cm Peel-away sheath and guidewire removed. Catheter fixed to the skin. Both catheter ports aspirated and flushed. Patient tolerated procedure well, without immediate complication. Digital radiograph documents satisfactory catheter tip position, at the level of the right axillary vein. Total fluoroscopy time 385 seconds. Total dose area product [id number] mGym2 Total number of images: One Impression: Successful placement of right arm PICC under sonographic and fluoroscopic guidance, as described above. Note that the catheter would not pass beyond the subclavian vein, so was cut short and is suitable for use as a midline. Patient's nurse was notified of this
--- NOTE | 2020-03-12 19:39 | NUR ---
HAND-OFF: Report given to Diana ROGERS.
--- NOTE | 2020-03-12 19:40 | NUR ---
NURSE NOTES: Receive pt on the bed awake,verbal and a&o x3-4. pt has no sob,fever,cough and pain. Pt has midline double lumen,asymptomatic. Bed in the lower position,locked and alarm. Call light within reach. we will keep monitoring the pt.
[2020-03-12 20:00] VITALS: BP 119/63
[2020-03-12] MEDS: Dyna-Hex 2% Top Sol 2oz TOPIC SCH (21:00)
--- NOTE | 2020-03-12 23:15 | Consultation ---
DATE OF CONSULTATION: 03/12/2020 NEPHROLOGY CONSULTATION CONSULTING PHYSICIAN: Kade Cochran M.D. REFERRING PHYSICIAN: John Red M.D. REASON FOR CONSULTATION: Renal transplant status and UTI. HISTORY OF PRESENT ILLNESS: The patient is an 80-year-old lady, well known to me who comes in with recurrent abdominal pain, pyuria, and likely UTI involving the kidney transplant. She has had multiple UTIs and resistant organisms in the past including ESBL. Her kidney transplant was in 1996. She has had stable renal function although there has been some episodes of acute kidney injury in the past. PAST MEDICAL HISTORY: There is a history of severe peripheral vascular disease, amputation right below the knee, hypertension, prior chronic hyperkalemia, chronic pain, and decubitus ulcers. SURGERIES: Include kidney transplant, multiple dialysis vascular access, permanent pacemaker, right below-knee amputation, toe amputations on the left, multiple vascular procedures, and debridements of decubitus. MEDICATIONS: Prior to admission medications were reviewed on the chart. HABITS: She is a nondrinker and nonsmoker. No use of illicit drugs. SYSTEM REVIEW: Unable at this time as she is very sleepy. PHYSICAL EXAMINATION: GENERAL: The patient is lying in bed, sleepy, but in no acute distress. VITAL SIGNS: Temperature 97.6, heart rate 76, respirations 18, blood pressure 126/59, and O2 saturation 97. HEAD, EYES, EARS, NOSE, AND THROAT: Her eyes are closed during the interview. Oral mucosa moist. NECK: No adenopathy. LUNGS: Clear. HEART: Regular rhythm. I hear no murmur. ABDOMEN: Soft without organomegaly. There is some mild tenderness over the right iliac fossa. Renal transplant. EXTREMITIES: No edema, cyanosis, or clubbing. There is right below-knee amputation. NEUROLOGIC: She is very sleepy and exam is deferred. PERTINENT LABORATORY DATA: Show white count of 6.6 and hemoglobin is 12.3. Electrolytes normal. BUN 26 and creatinine 1.4. The albumin of 3.5. Urinalysis shows 2 to 4 rbc's and 10 to 15 white cells per high-powered field and many bacteria, 3+ protein, 2+ ketones. IMPRESSION: 1. Renal transplant status. 2. UTI likely with a history of resistant organisms. 3. Low serum albumin and proteinuria. 4. Stable renal function from a long-term transplant. 5. History of decubitus ulcers. 6. History of peripheral vascular disease. 7. History of chronic pain. PLAN: The CT scan report is reviewed. She will be treated with broad-spectrum antibiotics and I will give her a short course of meropenem pending cultures as she has had the ESBL in the past to try to prevent catheterization and avoid nephrotoxic agents. Her transplant medications are reviewed. Kade Cochran M.D. DR: SHANON JOB#: [id number] CC:
[2020-03-13] VITALS: BP 105/62
[2020-03-13 04:00] VITALS: BP 112/63
[2020-03-13] MEDS: HydrALAZINE 25mg tab ORAL SCH ×3 (06:19→20:46)
[2020-03-13] MEDS: Meropenem 1 GM in NS 55 ML IVPB SCH (06:20)
--- NOTE | 2020-03-13 07:15 | NUR ---
NURSE NOTES: Received patient in bed. Awake, A/O x4. On room air. No signs of pain at this time. Midline in the Right upper arm, site intact. No signs of pain at this time. Bed low and locked.
--- NOTE | 2020-03-13 07:22 | NUR ---
HAND-OFF: Report given to Tito Richard.
[2020-03-13 07:48] LABS: BASOPHILS % (AUTO) 1.5 % (0.0-2.0); EOSINOPHILS % (AUTO) 0.6 % (0.0-3.0); HEMATOCRIT 31.9 % (37.0-47.0); HEMOGLOBIN 11.5 G/DL (12.0-16.0); LYMPHOCYTES % (AUTO) 25.1 % (20.0-45.0); MEAN CORPUSCULAR VOLUME 91 FL (80-99); MONOCYTES % (AUTO) 8.2 % (1.0-10.0); NEUTROPHILS % (AUTO) 64.6 % (45.0-75.0); PLATELET COUNT 148 K/UL (150-450); RED BLOOD COUNT 3.52 M/UL (4.20-5.40); RED CELL DISTRIBUTION WIDTH 13.5 % (11.6-14.8); WHITE BLOOD COUNT 6.2 K/UL (4.8-10.8)
[2020-03-13 08:00] VITALS: BP 110/52
[2020-03-13 08:07] LABS: INR 1.1 (0.9-1.1)
[2020-03-13 08:08] LABS: ALANINE AMINOTRANSFERASE 7 U/L (12-78); ALBUMIN 3.2 G/DL (3.4-5.0); ALBUMIN/GLOBULIN RATIO 0.7 (1.0-2.7); ALKALINE PHOSPHATASE 74 U/L (46-116); AMYLASE 152 U/L (25-115); ANION GAP 14 mmol/L (5-15); ASPARTATE AMINO TRANSFERASE 23 U/L (15-37); BLOOD UREA NITROGEN 29 mg/dL (7-18); CALCIUM 9.2 MG/DL (8.5-10.1); CARBON DIOXIDE 25 MMOL/L (21-32); CHLORIDE 100 MMOL/L (98-107); CREATININE 1.4 MG/DL (0.55-1.30); POTASSIUM 3.6 MMOL/L (3.5-5.1); SODIUM 139 MMOL/L (136-145)
[2020-03-13] MEDS: cycloSPORINE 100mg cap ORAL SCH ×2 (08:46→20:46)
[2020-03-13] MEDS: Xarelto 10mg tab ORAL SCH (08:47)
[2020-03-13] MEDS: Lyrica 75mg cap ORAL SCH ×3 (08:47→17:46)
[2020-03-13] MEDS: azaTHIOprine 50 MG TAB ORAL SCH (08:47)
[2020-03-13] MEDS: Multivitamin w/Minerals tab ORAL SCH (08:47)
--- NOTE | 2020-03-13 09:30 | Consultation ---
DATE OF CONSULTATION: 03/12/2020 CARDIOLOGY CONSULTATION CONSULTING PHYSICIAN: Matthew Tinajero MD. REQUESTING PHYSICIAN: John Red MD. REASON FOR CONSULTATION: Management of cardiovascular status in the setting of hypertensive heart disease, peripheral artery disease, history of DVT, and permanent pacemaker. HISTORY OF PRESENT ILLNESS: This is an 80-year-old female with a complicated medical history including a renal transplant. She has abdominal pain, urinary frequency, urgency, and dysuria and is being treated for an acute complicated urinary tract infection with possible sepsis. I have been asked to assist with cardiovascular care. The patient has a prior history of permanent pacemaker, peripheral artery disease with right BKA, history of DVT on anticoagulation, hypertensive heart disease, and chronic diastolic congestive heart failure. She also has amputations of toes on the left and history of hyperkalemia as well as recurrent decubitus. SOCIAL HISTORY: Prior smoker. No alcohol or substance abuse. MEDICATIONS: Reviewed and reconciled. ALLERGIES: None known. REVIEW OF SYSTEMS: Cannot be reliably obtained from the patient as she is somnolent. Review of prior hospital records and office charts are completed x25 minutes and pertinent data as outlined above. PHYSICAL EXAMINATION: GENERAL: Alert, but somnolent. VITAL SIGNS: Afebrile, blood pressure 126/59, heart rate 76, respiratory rate 18. HEENT: Temporal wasting. Arcus senilis. Oropharynx clear. Mucous membranes dry. NECK: supple. LUNGS: Clear. CARDIAC: Regular rhythm and rate. Normal S1, S2 with a fourth heart sound. Pacemaker pocket site clean and dry. ABDOMEN: Soft, nontender. There is mild tenderness over the right iliac region and the kidney transplant site is palpable. EXTREMITIES: Without edema. There is no CVA tenderness. There is a right BKA with several left toes amputated as well. NEUROLOGIC: Reveals global depression of the LIGHTING ENGINEER system with somnolence. LABORATORY AND DIAGNOSTIC DATA: White count 6.6, hemoglobin 12.3. BUN 26, creatinine 1.4. Albumin 3.5. Urinalysis 10 to 15 white cells. EKG pending. IMPRESSION: 1. UTI with probable sepsis. 2. Hypovolemia and dehydration. 3. Renal transplant. 4. Hypertensive heart disease with low range of blood pressure. 5. Peripheral artery disease with prior amputations. 6. Permanent pacemaker. PLAN: Pancultured. Empiric antimicrobials. Await culture results. Volume resuscitation with IV fluids. Hold antihypertensives. Monitor electrolytes. Permanent pacemaker interrogation will be arranged if possible during this hospital stay. Matthew Tinajero M.D. DR: JESUS JOB#: [id number] CC:
[2020-03-13 12:00] VITALS: BP 112/64
[2020-03-13] MEDS: cefTRIAXone 1gm/D5W 55ml IVPB SCH ×2 (13:23)
--- NOTE | 2020-03-13 15:41 | General Progress Note ---
Assessment/Plan Problem List: (1) Abdominal pain ICD Codes: R10.9 - Abdominal pain SNOMED: 82840629 (2) Urinary tract infection (3) Colitis ICD Codes: K52.9 - Colitis SNOMED: 596263972 (4) Diarrhea ICD Codes: R19.7 - Diarrhea SNOMED: 36904175 (5) DVT (deep venous thrombosis) ICD Codes: I82.409 - Acute embolism and thrombosis of unspecified deep veins of unspecified lower extremity SNOMED: 246734197 Status: stable Assessment/Plan: iv abx follow up cultures id eval pain rx repeat lipase IVF eliquis Subjective ROS Limited/Unobtainable: No Constitutional: Reports: malaise, weakness HEENT: Reports: no symptoms Cardiovascular: Reports: no symptoms Respiratory: Reports: no symptoms Gastrointestinal/Abdominal: Reports: abdominal pain, diarrhea Genitourinary: Reports: no symptoms Neurologic/Psychiatric: Reports: no symptoms Endocrine: Reports: no symptoms Hematologic/Lymphatic: Reports: anemia Allergies: Coded Allergies: No Known Allergies (Verified , 05/29/09) All Systems: reviewed and negative except above Subjective no new complaints. no fevers or chills. no sob. CT noted. ?elevated lipase. no nausea or vomiting. on abx. Objective Last 24 Hour Vital Signs Date Time Temp Pulse Resp B/P (MAP) Pulse Ox O2 Delivery O2 Flow Rate FiO2 03/13/20 13:24 112/64 03/13/20 12:00 97.0 90 20 112/64 (80) 98 03/13/20 09:24 67 110/52 03/13/20 09:24 67 110/52 03/13/20 09:00 Room Air 03/13/20 08:00 97.2 67 18 110/52 (71) 100 03/13/20 06:19 120/65 03/13/20 04:00 96.6 78 22 112/63 (79) 94 03/13/20 00:00 97.3 84 24 105/62 (76) 97 03/12/20 21:11 89 117/63 03/12/20 21:10 119/63 03/12/20 21:00 Room Air 03/12/20 20:00 97.5 89 24 119/63 (81) 97 03/12/20 16:00 97.6 76 18 126/59 (81) 97 Intake and Output 6/8/20 6/9/20 19:00 07:00 Intake Total 110 ml Balance 110 ml Intake Oral 110 ml # Voids 1 2 # Bowel Movements 1 1 Laboratory Tests 03/13/20 07:34: White Blood Count 6.2, Red Blood Count 3.52L, Hemoglobin 11.5L, Hematocrit 31.9L , Mean Corpuscular Volume 91, Mean Corpuscular Hemoglobin 32.6H, Mean Corpuscular Hemoglobin Concent 36.0, Red Cell Distribution Width 13.5, Platelet Count 148L, Mean Platelet Volume 8.2, Neutrophils (%) (Auto) 64.6, Lymphocytes ( %) (Auto) 25.1, Monocytes (%) (Auto) 8.2, Eosinophils (%) (Auto) 0.6, Basophils (%) (Auto) 1.5, Erythrocyte Sedimentation Rate 76H, Prothrombin Time 12.2H, Prothromb Time International Ratio 1.1, Activated Partial Thromboplast Time 30, Sodium Level 139, Potassium Level 3.6, Chloride Level 100, Carbon Dioxide Level 25, Anion Gap 14, Blood Urea Nitrogen 29H, Creatinine 1.4H, Estimat Glomerular Filtration Rate 43.6, Glucose Level 84, Calcium Level 9.2, Total Bilirubin 1.0, Aspartate Amino Transf (AST/SGOT) 23, Alanine Aminotransferase (ALT/SGPT) 7L, Alkaline Phosphatase 74, C-Reactive Protein, Quantitative 0.9, Total Protein 7.6 , Albumin 3.2L, Globulin 4.4, Albumin/Globulin Ratio 0.7L, Amylase Level 152H, Lipase 713H Height (Feet): 5 Height (Inches): 4.00 Weight (Pounds): 147 General Appearance: WD/WN, alert EENT: PERRL/EOMI, normal ENT inspection Neck: non-tender, normal alignment Cardiovascular: normal peripheral pulses, normal rate Respiratory/Chest: chest wall non-tender, lungs clear, normal breath sounds Abdomen: normal bowel sounds, non tender, soft, no organomegaly Extremities: normal range of motion, non-tender Edema: no edema noted Arm (L), no edema noted Arm (R) 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
[2020-03-13 16:00] VITALS: BP 116/68
--- NOTE | 2020-03-13 17:13 | Surgery Progress Note ---
Surgery Progress Note Subjective Additional Comments elevated carly / lip exam stable pain stable CT ntoed Objective Last 24 Hour Vital Signs Date Time Temp Pulse Resp B/P (MAP) Pulse Ox O2 Delivery O2 Flow Rate FiO2 03/13/20 13:24 112/64 03/13/20 12:00 97.0 90 20 112/64 (80) 98 03/13/20 09:24 67 110/52 03/13/20 09:24 67 110/52 03/13/20 09:00 Room Air 03/13/20 08:00 97.2 67 18 110/52 (71) 100 03/13/20 06:19 120/65 03/13/20 04:00 96.6 78 22 112/63 (79) 94 03/13/20 00:00 97.3 84 24 105/62 (76) 97 03/12/20 21:11 89 117/63 03/12/20 21:10 119/63 03/12/20 21:00 Room Air 03/12/20 20:00 97.5 89 24 119/63 (81) 97 I&O Intake and Output 03/12/20 03/13/20 19:00 07:00 Intake Total 110 ml Balance 110 ml Intake Oral 110 ml # Voids 1 2 # Bowel Movements 1 1 Dressing: other Wound: other Drains: other Cardiovascular: RSR Respiratory: decreased breath sounds Abdomen: soft, tenderness, present bowel sounds, non-distended Extremities: no tenderness, no cyanosis Laboratory Tests Test 03/13/20 07:34 White Blood Count 6.2 K/UL (4.8-10.8) Red Blood Count 3.52 M/UL (4.20-5.40) L Hemoglobin 11.5 G/DL (12.0-16.0) L Hematocrit 31.9 % (37.0-47.0) L Mean Corpuscular Volume 91 FL (80-99) Mean Corpuscular Hemoglobin 32.6 PG (27.0-31.0) H Mean Corpuscular Hemoglobin Concent 36.0 G/DL (32.0-36.0) Red Cell Distribution Width 13.5 % (11.6-14.8) Platelet Count 148 K/UL (150-450) L Mean Platelet Volume 8.2 FL (6.5-10.1) Neutrophils (%) (Auto) 64.6 % (45.0-75.0) Lymphocytes (%) (Auto) 25.1 % (20.0-45.0) Monocytes (%) (Auto) 8.2 % (1.0-10.0) Eosinophils (%) (Auto) 0.6 % (0.0-3.0) Basophils (%) (Auto) 1.5 % (0.0-2.0) Erythrocyte Sedimentation Rate 76 MM/HR (0-30) H Prothrombin Time 12.2 SEC (9.30-11.50) H Prothromb Time International Ratio 1.1 (0.9-1.1) Activated Partial Thromboplast Time 30 SEC (23-33) Sodium Level 139 MMOL/L (136-145) Potassium Level 3.6 MMOL/L (3.5-5.1) Chloride Level 100 MMOL/L (98-107) Carbon Dioxide Level 25 MMOL/L (21-32) Anion Gap 14 mmol/L (5-15) Blood Urea Nitrogen 29 mg/dL (7-18) H Creatinine 1.4 MG/DL (0.55-1.30) H Estimat Glomerular Filtration Rate 43.6 mL/min (>60) Glucose Level 84 MG/DL (74-106) Calcium Level 9.2 MG/DL (8.5-10.1) Total Bilirubin 1.0 MG/DL (0.2-1.0) Aspartate Amino Transf (AST/SGOT) 23 U/L (15-37) Alanine Aminotransferase (ALT/SGPT) 7 U/L (12-78) L Alkaline Phosphatase 74 U/L (46-116) C-Reactive Protein, Quantitative 0.9 mg/dL (0.00-0.90) Total Protein 7.6 G/DL (6.4-8.2) Albumin 3.2 G/DL (3.4-5.0) L Globulin 4.4 g/dL Albumin/Globulin Ratio 0.7 (1.0-2.7) L Amylase Level 152 U/L (25-115) H Lipase 713 U/L (73-393) H Plan Problems: (1) Abdominal pain Assessment & Plan: 80F with abdominal pain, decreased appetite, abnormal labs. Chest x-ray noted. On examination she has an abnormal mass palpated in the right lower quadrant around the prior incision. Unsure if scar tissue versus cyst versus infectious process. She is definitely tender in uncomfortable around this is mobile and difficult to palpating complete given discomfort. pancreatitis CT abdomen pelvis noted Fluid-filled colon, could indicate a diarrheal illness. No evidence of small bowel obstruction or other GI tract pathology. Mild bladder wall thickening, could indicate cystitis Right renal transplant kidney again demonstrated. Previously demonstrated transplant kidney hydronephrosis is not evident. Slight infiltration of the fat superior to the upper pole of the right kidney, of uncertain significance but could indicate a degree of perinephric inflammation Retrococcygeal and retrosacral decubitus changes. Evidence of decubitus changes of the left lower buttock region as well. Correlate with clinical findings Postsurgical changes, as described, including prior cholecystectomy, evidence of prior hysterectomy, left hip surgery, bilateral groin dialysis graft placement, pacemaker Small left lower lobe bulla Other findings as noted, including degenerative spondylosis, stable subcutaneous right upper pelvic lesion IV fluids IV antibiotics A.m. labs We will follow with recommendations thank you for let me participate in patient' s care Thomas Franklin Mar 13, 2020 17:13
--- NOTE | 2020-03-13 19:28 | NUR ---
HAND-OFF: Report given to Luis ROGERS.
[2020-03-13 20:00] VITALS: BP 127/57
--- NOTE | 2020-03-13 20:00 | NUR ---
NURSE NOTES: Received patient in bed. Awake, able to make needs known, adjusted in bed for patient comfort. On room air. Patient denies pain, no signs of distress at this time. Bed low and locked. Patient wearing non slip socks.
[2020-03-13] MEDS: Dyna-Hex 2% Top Sol 2oz TOPIC SCH (20:46)
--- NOTE | 2020-03-13 21:12 | Nephrology Progress Note ---
Assessment/Plan Problem List: (1) Urinary tract infection (2) Pyelonephritis (3) Diastolic CHF with preserved left ventricular function, NYHA class 2 (4) Incontinence of urine in female (5) Status post kidney transplant Plan meropenam given as prior esbl, continue usual transplant meds Subjective Constitutional: Reports: weakness HEENT: Reports: no symptoms Genitourinary: Reports: burning, incontinence Neurologic/Psychiatric: Reports: pre-existing deficit Objective Objective Last 24 Hour Vital Signs Date Time Temp Pulse Resp B/P (MAP) Pulse Ox O2 Delivery O2 Flow Rate FiO2 03/13/20 20:46 127/57 03/13/20 20:46 81 127/57 03/13/20 20:00 97.9 81 20 127/57 (80) 98 03/13/20 16:00 97.8 86 20 116/68 (84) 98 03/13/20 13:24 112/64 03/13/20 12:00 97.0 90 20 112/64 (80) 98 03/13/20 09:24 67 110/52 03/13/20 09:24 67 110/52 03/13/20 09:00 Room Air 03/13/20 08:00 97.2 67 18 110/52 (71) 100 03/13/20 06:19 120/65 03/13/20 04:00 96.6 78 22 112/63 (79) 94 03/13/20 00:00 97.3 84 24 105/62 (76) 97 03/12/20 21:11 89 117/63 Intake and Output 03/12/20 03/13/20 19:00 07:00 Intake Total 110 ml Balance 110 ml Intake Oral 110 ml # Voids 1 2 # Bowel Movements 1 1 Laboratory Tests 03/13/20 07:34: White Blood Count 6.2, Red Blood Count 3.52L, Hemoglobin 11.5L, Hematocrit 31.9L , Mean Corpuscular Volume 91, Mean Corpuscular Hemoglobin 32.6H, Mean Corpuscular Hemoglobin Concent 36.0, Red Cell Distribution Width 13.5, Platelet Count 148L, Mean Platelet Volume 8.2, Neutrophils (%) (Auto) 64.6, Lymphocytes ( %) (Auto) 25.1, Monocytes (%) (Auto) 8.2, Eosinophils (%) (Auto) 0.6, Basophils (%) (Auto) 1.5, Erythrocyte Sedimentation Rate 76H, Prothrombin Time 12.2H, Prothromb Time International Ratio 1.1, Activated Partial Thromboplast Time 30, Sodium Level 139, Potassium Level 3.6, Chloride Level 100, Carbon Dioxide Level 25, Anion Gap 14, Blood Urea Nitrogen 29H, Creatinine 1.4H, Estimat Glomerular Filtration Rate 43.6, Glucose Level 84, Calcium Level 9.2, Total Bilirubin 1.0, Aspartate Amino Transf (AST/SGOT) 23, Alanine Aminotransferase (ALT/SGPT) 7L, Alkaline Phosphatase 74, C-Reactive Protein, Quantitative 0.9, Total Protein 7.6 , Albumin 3.2L, Globulin 4.4, Albumin/Globulin Ratio 0.7L, Amylase Level 152H, Lipase 713H Height (Feet): 5 Height (Inches): 4.00 Weight (Pounds): 147 General Appearance: no apparent distress, alert EENT: normal ENT inspection Neck: normal alignment Cardiovascular: normal rate Respiratory/Chest: lungs clear Abdomen: other - mild tender over renal transplant Extremities: no edema, other - r bka 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
[2020-03-14] VITALS: BP 132/64
[2020-03-14 04:00] VITALS: BP 103/58
[2020-03-14] MEDS: HydrALAZINE 25mg tab ORAL SCH ×3 (05:29→20:41)
--- NOTE | 2020-03-14 06:15 | Progress Note ---
DATE: 03/13/2020 CARDIOLOGY PROGRESS NOTE SUBJECTIVE: The patient is still withdrawn and has diffuse pain. She is on IV therapy. Cultures pending. PHYSICAL EXAMINATION: VITAL SIGNS: Blood pressure 112/64, pulse 90, respiratory rate 20. EKG reveals atrial pacing. LUNGS: Coarse breath sounds. No wheezing. HEART: Regular rhythm rate. Normal S1, S2. ABDOMEN: Soft. Right lower quadrant renal transplant site palpable. Amputation site is clean. EXTREMITIES: No edema. IMPRESSION: 1. UTI. 2. Sepsis. 3. Recovering shock. 4. Pacemaker. 5. Hypertensive heart disease. 6. Elevated lipase, rule out pancreatitis. 7. History of DVT. 8. Peripheral artery disease with amputation. PLAN: 1. Hydration. 2. Antimicrobials. 3. Await cultures. 4. Full anticoagulation. 5. Followup imaging studies of the abdomen. 6. Followup pancreatic enzymes. 7. Hold antihypertensives. Matthew Tinajero M.D. DR: Jessica JOB#: [id number] CC:
[2020-03-14 06:44] LABS: BASOPHILS % (AUTO) 1.3 % (0.0-2.0); EOSINOPHILS % (AUTO) 1.1 % (0.0-3.0); HEMATOCRIT 31.5 % (37.0-47.0); HEMOGLOBIN 11.1 G/DL (12.0-16.0); LYMPHOCYTES % (AUTO) 25.7 % (20.0-45.0); MEAN CORPUSCULAR VOLUME 92 FL (80-99); MONOCYTES % (AUTO) 8.7 % (1.0-10.0); NEUTROPHILS % (AUTO) 63.1 % (45.0-75.0); PLATELET COUNT 138 K/UL (150-450); RED BLOOD COUNT 3.44 M/UL (4.20-5.40); RED CELL DISTRIBUTION WIDTH 14.1 % (11.6-14.8); WHITE BLOOD COUNT 6.1 K/UL (4.8-10.8)
[2020-03-14 07:10] LABS: ALANINE AMINOTRANSFERASE 7 U/L (12-78); ALBUMIN 2.9 G/DL (3.4-5.0); ALBUMIN/GLOBULIN RATIO 0.7 (1.0-2.7); ALKALINE PHOSPHATASE 73 U/L (46-116); ANION GAP 11 mmol/L (5-15); ASPARTATE AMINO TRANSFERASE 19 U/L (15-37); BILIRUBIN,TOTAL 0.7 MG/DL (0.2-1.0); BLOOD UREA NITROGEN 35 mg/dL (7-18); CARBON DIOXIDE 25 MMOL/L (21-32); CHLORIDE 103 MMOL/L (98-107); POTASSIUM 3.4 MMOL/L (3.5-5.1); SODIUM 139 MMOL/L (136-145)
--- NOTE | 2020-03-14 07:35 | NUR ---
HAND-OFF: Report given to KEN Shea.
[2020-03-14 08:00] VITALS: BP 109/58
--- NOTE | 2020-03-14 08:00 | NUR ---
NURSE NOTES: Patient alert,sitting up in bed,eating breakfast,no complaints at this time,Call light within reach,bed alarm on.
[2020-03-14] MEDS: Lyrica 75mg cap ORAL SCH (09:00)
--- NOTE | 2020-03-14 09:03 | General Progress Note ---
Assessment/Plan Problem List: (1) Abdominal pain ICD Codes: R10.9 - Abdominal pain SNOMED: 50979487 (2) Urinary tract infection (3) Colitis ICD Codes: K52.9 - Colitis SNOMED: 726751403 (4) Diarrhea ICD Codes: R19.7 - Diarrhea SNOMED: 05155048 (5) DVT (deep venous thrombosis) ICD Codes: I82.409 - Acute embolism and thrombosis of unspecified deep veins of unspecified lower extremity SNOMED: 310501248 Status: stable Assessment/Plan: iv abx follow up cultures ivf monitor renal fxn head ct pain rx avoid sedatives. Subjective ROS Limited/Unobtainable: Yes Constitutional: Reports: malaise, weakness HEENT: Reports: no symptoms Cardiovascular: Reports: no symptoms Respiratory: Reports: no symptoms Gastrointestinal/Abdominal: Reports: abdominal pain Genitourinary: Reports: no symptoms Neurologic/Psychiatric: Reports: anxiety, depressed Endocrine: Reports: no symptoms Hematologic/Lymphatic: Reports: anemia Allergies: Coded Allergies: No Known Allergies (Verified , 05/29/09) All Systems: reviewed and negative except above Subjective confused this am. lethargic. worsening renal fxn. no reports of vomiting or diarrhea. no pain currently. Objective Last 24 Hour Vital Signs Date Time Temp Pulse Resp B/P (MAP) Pulse Ox O2 Delivery O2 Flow Rate FiO2 03/14/20 05:29 103/58 03/14/20 04:00 98.0 90 18 103/58 (73) 98 03/14/20 00:00 97.6 77 18 132/64 (86) 98 03/13/20 22:07 Room Air 03/13/20 20:46 127/57 03/13/20 20:46 81 127/57 03/13/20 20:00 97.9 81 20 127/57 (80) 98 03/13/20 16:00 97.8 86 20 116/68 (84) 98 03/13/20 13:24 112/64 03/13/20 12:00 97.0 90 20 112/64 (80) 98 03/13/20 09:24 67 110/52 03/13/20 09:24 67 110/52 03/13/20 09:00 Room Air Intake and Output 03/13/20 03/14/20 19:00 07:00 Intake Total 980 ml 360 ml Balance 980 ml 360 ml Intake Oral 980 ml 360 ml # Voids 1 1 Laboratory Tests 03/14/20 05:43: White Blood Count 6.1, Red Blood Count 3.44L, Hemoglobin 11.1L, Hematocrit 31.5L , Mean Corpuscular Volume 92, Mean Corpuscular Hemoglobin 32.3H, Mean Corpuscular Hemoglobin Concent 35.2, Red Cell Distribution Width 14.1, Platelet Count 138L, Mean Platelet Volume 8.4, Neutrophils (%) (Auto) 63.1, Lymphocytes ( %) (Auto) 25.7, Monocytes (%) (Auto) 8.7, Eosinophils (%) (Auto) 1.1, Basophils (%) (Auto) 1.3, Sodium Level 139, Potassium Level 3.4L, Chloride Level 103, Carbon Dioxide Level 25, Anion Gap 11, Blood Urea Nitrogen 35H, Creatinine 2.0H , Estimat Glomerular Filtration Rate 28.8, Glucose Level 84, Calcium Level 9.0, Total Bilirubin 0.7, Aspartate Amino Transf (AST/SGOT) 19, Alanine Aminotransferase (ALT/SGPT) 7L, Alkaline Phosphatase 73, Total Protein 7.2, Albumin 2.9L, Globulin 4.3, Albumin/Globulin Ratio 0.7L, Amylase Level 79, Lipase 180 Height (Feet): 5 Height (Inches): 4.00 Weight (Pounds): 145 Objective General Appearance: WD/WN, lethargic EENT: PERRL/EOMI, normal ENT inspection. left eye deviated to the left Neck: non-tender, normal alignment Cardiovascular: normal peripheral pulses, normal rate Respiratory/Chest: chest wall non-tender, lungs clear, normal breath sounds Abdomen: normal bowel sounds, non tender, soft, no organomegaly Extremities: normal range of motion, non-tender Edema: no edema noted Arm (L), no edema noted Arm (R) Neurologic: lethargic Skin: normal pigmentation Lymphatic: normal anterior cervical (L), normal anterior cervical (R) John Red MD Mar 14, 2020 09:03
--- NOTE | 2020-03-14 09:53 | Diagnostic Imaging Report ---
EXAM: CT CT Head no Contrast INDICATION: Altered mental status. TECHNIQUE: Axial images of the brain were obtained with subsequent sagittal and coronal reformats. All CT scans at this facility are performed using dose modulation techniques as appropriate to a performed exam including the following: automated exposure control with adjustment of the mA and/or kV according to patient size. COMPARISON STUDY: 11/28/2010 RADIATION DOSE: CTDIvol: 53.4 mGy DLP: 1098.9 mGy-cm Dose information generated by the CT scanner is available in PACS. FINDINGS: There is age related senescent changes with ventricular and sulcal prominence. White matter micro-ischemic changes noted. There is no acute large territory cortical infarct, hemorrhage, mass effect or shift. Ventricles and cisterns as well as brainstem and posterior fossa appear unremarkable. The sellar region is normal. Sinuses, mastoid air cells and bony calvarium appear intact. IMPRESSION: AGE RELATED SENESCENT CHANGES. NO ACUTE INTRACRANIAL ABNORMALITY.
[2020-03-14] MEDS: azaTHIOprine 50 MG TAB ORAL SCH (10:40)
[2020-03-14] MEDS: Xarelto 10mg tab ORAL SCH (10:41)
[2020-03-14] MEDS: Multivitamin w/Minerals tab ORAL SCH (10:41)
[2020-03-14] MEDS: cycloSPORINE 100mg cap ORAL SCH ×2 (10:42→20:41)
[2020-03-14 12:00] VITALS: BP 126/73
--- NOTE | 2020-03-14 12:22 | Nephrology Progress Note ---
Assessment/Plan Problem List: (1) Urinary tract infection (2) Pyelonephritis (3) Diastolic CHF with preserved left ventricular function, NYHA class 2 (4) Incontinence of urine in female (5) Status post kidney transplant Plan meropenam given as prior esbl, needs ID consult to continue, zosyn for now continue usual transplant meds creatinine higher 2.0 hydrate, check bladder scan Subjective Constitutional: Reports: weakness HEENT: Reports: no symptoms Genitourinary: Reports: incontinence Neurologic/Psychiatric: Reports: no symptoms Objective Objective Last 24 Hour Vital Signs Date Time Temp Pulse Resp B/P (MAP) Pulse Ox O2 Delivery O2 Flow Rate FiO2 03/14/20 10:56 92 117/59 03/14/20 10:56 92 117/59 03/14/20 05:29 103/58 03/14/20 04:00 98.0 90 18 103/58 (73) 98 03/14/20 00:00 97.6 77 18 132/64 (86) 98 03/13/20 22:07 Room Air 03/13/20 20:46 127/57 03/13/20 20:46 81 127/57 03/13/20 20:00 97.9 81 20 127/57 (80) 98 03/13/20 16:00 97.8 86 20 116/68 (84) 98 03/13/20 13:24 112/64 Intake and Output 03/13/20 03/14/20 19:00 07:00 Intake Total 980 ml 360 ml Balance 980 ml 360 ml Intake Oral 980 ml 360 ml # Voids 1 1 Laboratory Tests 03/14/20 05:43: White Blood Count 6.1, Red Blood Count 3.44L, Hemoglobin 11.1L, Hematocrit 31.5L , Mean Corpuscular Volume 92, Mean Corpuscular Hemoglobin 32.3H, Mean Corpuscular Hemoglobin Concent 35.2, Red Cell Distribution Width 14.1, Platelet Count 138L, Mean Platelet Volume 8.4, Neutrophils (%) (Auto) 63.1, Lymphocytes ( %) (Auto) 25.7, Monocytes (%) (Auto) 8.7, Eosinophils (%) (Auto) 1.1, Basophils (%) (Auto) 1.3, Sodium Level 139, Potassium Level 3.4L, Chloride Level 103, Carbon Dioxide Level 25, Anion Gap 11, Blood Urea Nitrogen 35H, Creatinine 2.0H , Estimat Glomerular Filtration Rate 28.8, Glucose Level 84, Calcium Level 9.0, Total Bilirubin 0.7, Aspartate Amino Transf (AST/SGOT) 19, Alanine Aminotransferase (ALT/SGPT) 7L, Alkaline Phosphatase 73, Total Protein 7.2, Albumin 2.9L, Globulin 4.3, Albumin/Globulin Ratio 0.7L, Amylase Level 79, Lipase 180 03/14/20 05:45: Cyclosporine (by HPLC) [Pending] Height (Feet): 5 Height (Inches): 4.00 Weight (Pounds): 145 General Appearance: no apparent distress EENT: normal ENT inspection Cardiovascular: regular rhythm Respiratory/Chest: lungs clear Abdomen: non tender Extremities: no edema 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
--- NOTE | 2020-03-14 13:37 | NUR ---
NURSE NOTES:Patient was bladder scan per DR naik order,bladder scan results show 439cc,DR naik order to insert morin catheter.
[2020-03-14] MEDS ORDERED: Piperacillin/Tazobactam 3.375 GM in NS 110 ML IVPB SCH (14:00)
--- NOTE | 2020-03-14 14:28 | Surgery Progress Note ---
Surgery Progress Note Subjective Additional Comments no acute events comfortable stable labs noted micro reviewed Objective Last 24 Hour Vital Signs Date Time Temp Pulse Resp B/P (MAP) Pulse Ox O2 Delivery O2 Flow Rate FiO2 03/14/20 12:00 97.7 91 20 126/73 (90) 99 03/14/20 10:56 92 117/59 03/14/20 10:56 92 117/59 03/14/20 08:00 97.2 79 20 109/58 (75) 98 03/14/20 05:29 103/58 03/14/20 04:00 98.0 90 18 103/58 (73) 98 03/14/20 00:00 97.6 77 18 132/64 (86) 98 03/13/20 22:07 Room Air 03/13/20 20:46 127/57 03/13/20 20:46 81 127/57 03/13/20 20:00 97.9 81 20 127/57 (80) 98 03/13/20 16:00 97.8 86 20 116/68 (84) 98 I&O Intake and Output 03/13/20 03/14/20 19:00 07:00 Intake Total 980 ml 360 ml Balance 980 ml 360 ml Intake Oral 980 ml 360 ml # Voids 1 1 Dressing: other Wound: other Drains: other Cardiovascular: RSR Respiratory: decreased breath sounds Abdomen: soft, non-tender, present bowel sounds Extremities: no cyanosis Laboratory Tests Test 03/14/20 05:43 03/14/20 05:45 White Blood Count 6.1 K/UL (4.8-10.8) Red Blood Count 3.44 M/UL (4.20-5.40) L Hemoglobin 11.1 G/DL (12.0-16.0) L Hematocrit 31.5 % (37.0-47.0) L Mean Corpuscular Volume 92 FL (80-99) Mean Corpuscular Hemoglobin 32.3 PG (27.0-31.0) H Mean Corpuscular Hemoglobin Concent 35.2 G/DL (32.0-36.0) Red Cell Distribution Width 14.1 % (11.6-14.8) Platelet Count 138 K/UL (150-450) L Mean Platelet Volume 8.4 FL (6.5-10.1) Neutrophils (%) (Auto) 63.1 % (45.0-75.0) Lymphocytes (%) (Auto) 25.7 % (20.0-45.0) Monocytes (%) (Auto) 8.7 % (1.0-10.0) Eosinophils (%) (Auto) 1.1 % (0.0-3.0) Basophils (%) (Auto) 1.3 % (0.0-2.0) Sodium Level 139 MMOL/L (136-145) Potassium Level 3.4 MMOL/L (3.5-5.1) L Chloride Level 103 MMOL/L (98-107) Carbon Dioxide Level 25 MMOL/L (21-32) Anion Gap 11 mmol/L (5-15) Blood Urea Nitrogen 35 mg/dL (7-18) H Creatinine 2.0 MG/DL (0.55-1.30) H Estimat Glomerular Filtration Rate 28.8 mL/min (>60) Glucose Level 84 MG/DL (74-106) Calcium Level 9.0 MG/DL (8.5-10.1) Total Bilirubin 0.7 MG/DL (0.2-1.0) Aspartate Amino Transf (AST/SGOT) 19 U/L (15-37) Alanine Aminotransferase (ALT/SGPT) 7 U/L (12-78) L Alkaline Phosphatase 73 U/L (46-116) Total Protein 7.2 G/DL (6.4-8.2) Albumin 2.9 G/DL (3.4-5.0) L Globulin 4.3 g/dL Albumin/Globulin Ratio 0.7 (1.0-2.7) L Amylase Level 79 U/L (25-115) Lipase 180 U/L (73-393) Cyclosporine (by HPLC) Pending Plan Problems: (1) Abdominal pain Assessment & Plan: 80F with abdominal pain, decreased appetite, abnormal labs. Chest x-ray noted. On examination she has an abnormal mass palpated in the right lower quadrant around the prior incision. Unsure if scar tissue versus cyst versus infectious process. She is definitely tender in uncomfortable around this is mobile and difficult to palpating complete given discomfort. pancreatitis CT abdomen pelvis noted Fluid-filled colon, could indicate a diarrheal illness. No evidence of small bowel obstruction or other GI tract pathology. Mild bladder wall thickening, could indicate cystitis Right renal transplant kidney again demonstrated. Previously demonstrated transplant kidney hydronephrosis is not evident. Slight infiltration of the fat superior to the upper pole of the right kidney, of uncertain significance but could indicate a degree of perinephric inflammation Retrococcygeal and retrosacral decubitus changes. Evidence of decubitus changes of the left lower buttock region as well. Correlate with clinical findings Postsurgical changes, as described, including prior cholecystectomy, evidence of prior hysterectomy, left hip surgery, bilateral groin dialysis graft placement, pacemaker Small left lower lobe bulla Other findings as noted, including degenerative spondylosis, stable subcutaneous right upper pelvic lesion IV fluids IV antibiotics A.m. labs We will follow with recommendations thank you for let me participate in patient' s care Thomas Franklin Mar 14, 2020 14:28
--- NOTE | 2020-03-14 14:50 | NUR ---
CASE MANAGEMENT:REVIEW SI;UTI. PYELONEPHRITIS. COLITIS. DVT. 98.0 91 20 103/58 98% ON RA K+ 3.4 BUN 35 CR 2.0 ALB 2.9 IS;ZOSYN IV Q12 HR IVF NS @ 150 ML/HR IMURAN PO QD COREG PO Q12 HR FLORINEF PO QD PROTONIX PO QD K-DUR PO MED SURG STATUS DCP;PATIENT IS FROM HOME
[2020-03-14 16:00] VITALS: BP 102/58
--- NOTE | 2020-03-14 18:30 | NUR ---
NURSE NOTES: Morin catheter was inserted to day as ordered,morin remains in place and draining dark sergey color urine.IV fluids infusing as ordered. Bed alarm on,call light within reach.
--- NOTE | 2020-03-14 19:19 | Diagnostic Imaging Report ---
EXAM: US Abdomen Limited CLINICAL HISTORY: RENAL-A TECHNIQUE: Real-time ultrasound of the abdomen with image documentation. COMPARISON: CT 03/12/2020. FINDINGS: Kidneys: Transplant kidney in the right lower quadrant. The kidney measures 13 cm. No hydronephrosis or nephrolithiasis. Resistive index in the upper pole 0.69. Resistive index in the lower pole 0.74. Resistive index in the midpole 0.71. IMPRESSION: Unremarkable transplant kidney. Patent vasculature.
--- NOTE | 2020-03-14 19:35 | NUR ---
HAND-OFF: Report given to Luis ROGERS.
[2020-03-14 20:00] VITALS: BP 119/43
--- NOTE | 2020-03-14 20:00 | NUR ---
NURSE NOTES: Received patient in bed. Awake, able to make needs known, adjusted in bed for patient comfort. On room air. Patient denies pain, no signs of distress at this time. Bed low and locked. Patient wearing non slip socks. Patient declining to wear hospital gown at this time.
[2020-03-14] MEDS: Dyna-Hex 2% Top Sol 2oz TOPIC SCH (20:41)
[2020-03-15] VITALS: BP 113/61
[2020-03-15 04:00] VITALS: BP 123/58
[2020-03-15] MEDS: HydrALAZINE 25mg tab ORAL SCH ×3 (05:52→21:44)
--- NOTE | 2020-03-15 07:35 | NUR ---
NURSE NOTES: Received pt lying in hospital bed. Pt is AAO x 4, able to make needs known, non ambulatory, on bedrest with R BKA. Pt is on RA with no s/s of distress noted or c/o pain. R UA midline in place with no s/s of infection or infiltration with IVF running NS at 150 ml/hr Gonzalez catheter in place. LBM per report is on 03/14. Safety and fall precaution implemented, bed on lowest position, call light within reach, bed alarm on. Will continue POC.
[2020-03-15 08:00] VITALS: BP 139/61
[2020-03-15] MEDS: Piperacillin/Tazobactam 3.375 GM in NS 110 ML IVPB SCH ×2 (09:41→21:44)
[2020-03-15] MEDS: Multivitamin w/Minerals tab ORAL SCH (09:46)
[2020-03-15] MEDS: Xarelto 10mg tab ORAL SCH (09:46)
[2020-03-15] MEDS: cycloSPORINE 100mg cap ORAL SCH ×2 (09:46→21:44)
[2020-03-15] MEDS: azaTHIOprine 50 MG TAB ORAL SCH (09:50)
--- NOTE | 2020-03-15 10:15 | Progress Note ---
DATE: 03/14/2020 CARDIOLOGY PROGRESS NOTE SUBJECTIVE: The patient is increasingly withdrawn and lethargic today. Her pacemaker was interrogated and noted to be functioning appropriately with adequate battery life. OBJECTIVE: VITAL SIGNS: Blood pressure 103/58, heart rate 90, respiratory rate 18. LUNGS: Bilateral breath sounds. HEART: Regular rhythm and rate. Normal S1, S2. ABDOMEN: Soft. Transplant site is nontender. EXTREMITIES: There is no edema. Amputation sites are without skin breakdown. LABORATORY DATA: Urine culture is positive for ESBL E. coli. Potassium is 3.4, BUN 35, creatinine 2. IMPRESSION: 1. Worsening renal failure. 2. Renal transplant. 3. Complicated urinary tract infection with sepsis. 4. Hypokalemia. 5. Pacemaker. 6. Peripheral artery disease with amputations. 7. Hypertensive heart disease with controlled blood pressure. 8. Type 2 diabetes with neuropathy. 9. Metabolic and toxic encephalopathies. PLAN: 1. IV fluid hydration. 2. Potassium replacement. 3. Re-dose immunosuppressant therapy. 4. Antimicrobials per Infectious Disease financial services education consultant. Matthew Tinajero M.D. DR: Reji JOB#: [id number] CC:
[2020-03-15 12:00] VITALS: BP 126/63
--- NOTE | 2020-03-15 12:41 | Nephrology Progress Note ---
Assessment/Plan Problem List: (1) Urinary tract infection (2) Pyelonephritis (3) Diastolic CHF with preserved left ventricular function, NYHA class 2 (4) Incontinence of urine in female (5) Status post kidney transplant Plan meropenam given as prior esbl, needs ID consult to continue, zosyn for now continue usual transplant meds creatinine higher 2.0 hydrate, check bladder scan 03/14 400+ and morin placed, repeat lab pending Subjective Constitutional: Reports: weakness HEENT: Reports: no symptoms Genitourinary: Reports: incontinence Neurologic/Psychiatric: Reports: no symptoms Objective Objective Last 24 Hour Vital Signs Date Time Temp Pulse Resp B/P (MAP) Pulse Ox O2 Delivery O2 Flow Rate FiO2 03/15/20 09:46 76 136/61 03/15/20 09:45 76 139/61 03/15/20 05:52 102/58 03/15/20 04:00 97.8 82 21 123/58 (79) 99 03/15/20 00:00 97.0 85 21 113/61 (78) 99 03/14/20 22:45 Room Air 03/14/20 20:42 85 102/58 03/14/20 20:41 102/58 03/14/20 20:00 96.8 77 21 119/43 (68) 99 03/14/20 16:00 97.9 85 20 102/58 (73) 99 03/14/20 15:03 121/59 Intake and Output 03/14/20 03/15/20 19:00 07:00 Intake Total 720 ml 250 ml Output Total 400 ml 800 ml Balance 320 ml -550 ml Intake Oral 120 ml IV Total 600 ml Other 250 ml Output Urine Total 400 ml 800 ml Laboratory Tests 03/14/20 15:00: Urine Random Sodium < 20L, Urine Creatinine 212.8H Height (Feet): 5 Height (Inches): 4.00 Weight (Pounds): 145 General Appearance: alert, mild distress EENT: normal ENT inspection Neck: normal alignment Cardiovascular: regular rhythm Respiratory/Chest: lungs clear Abdomen: other - mild generalized tender Extremities: no edema 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
--- NOTE | 2020-03-15 14:12 | Surgery Progress Note ---
Surgery Progress Note Subjective Additional Comments renal function noted labs reviewed exam stable imaging reviewed Objective Last 24 Hour Vital Signs Date Time Temp Pulse Resp B/P (MAP) Pulse Ox O2 Delivery O2 Flow Rate FiO2 03/15/20 12:00 98.0 80 20 126/63 (84) 98 03/15/20 09:46 76 136/61 03/15/20 09:45 76 139/61 03/15/20 08:00 97.2 76 18 139/61 (87) 99 03/15/20 05:52 102/58 03/15/20 04:00 97.8 82 21 123/58 (79) 99 03/15/20 00:00 97.0 85 21 113/61 (78) 99 03/14/20 22:45 Room Air 03/14/20 20:42 85 102/58 03/14/20 20:41 102/58 03/14/20 20:00 96.8 77 21 119/43 (68) 99 03/14/20 16:00 97.9 85 20 102/58 (73) 99 03/14/20 15:03 121/59 I&O Intake and Output 03/14/20 03/15/20 19:00 07:00 Intake Total 720 ml 250 ml Output Total 400 ml 800 ml Balance 320 ml -550 ml Intake Oral 120 ml IV Total 600 ml Other 250 ml Output Urine Total 400 ml 800 ml Dressing: other Wound: other Drains: other Cardiovascular: RSR Respiratory: decreased breath sounds Abdomen: soft, present bowel sounds Extremities: no cyanosis Laboratory Tests Test 03/14/20 15:00 Urine Random Sodium < 20 mmol/L (20-110) L Urine Creatinine 212.8 MG/DL (30.0-125.0) H Plan Problems: (1) Abdominal pain Assessment & Plan: 80F with abdominal pain, decreased appetite, abnormal labs. Chest x-ray noted. On examination she has an abnormal mass palpated in the right lower quadrant around the prior incision. Unsure if scar tissue versus cyst versus infectious process. She is definitely tender in uncomfortable around this is mobile and difficult to palpating complete given discomfort. pancreatitis CT abdomen pelvis noted Fluid-filled colon, could indicate a diarrheal illness. No evidence of small bowel obstruction or other GI tract pathology. Mild bladder wall thickening, could indicate cystitis Right renal transplant kidney again demonstrated. Previously demonstrated transplant kidney hydronephrosis is not evident. Slight infiltration of the fat superior to the upper pole of the right kidney, of uncertain significance but could indicate a degree of perinephric inflammation Retrococcygeal and retrosacral decubitus changes. Evidence of decubitus changes of the left lower buttock region as well. Correlate with clinical findings Postsurgical changes, as described, including prior cholecystectomy, evidence of prior hysterectomy, left hip surgery, bilateral groin dialysis graft placement, pacemaker Small left lower lobe bulla Other findings as noted, including degenerative spondylosis, stable subcutaneous right upper pelvic lesion IV fluids IV antibiotics A.m. labs We will follow with recommendations thank you for let me participate in patient' s care Thomas Franklin Mar 15, 2020 14:12
[2020-03-15 16:00] VITALS: BP 130/66
--- NOTE | 2020-03-15 16:14 | General Progress Note ---
Assessment/Plan Problem List: (1) Abdominal pain ICD Codes: R10.9 - Abdominal pain SNOMED: 81149213 (2) Urinary tract infection (3) Colitis ICD Codes: K52.9 - Colitis SNOMED: 616031179 (4) Diarrhea ICD Codes: R19.7 - Diarrhea SNOMED: 33676023 (5) DVT (deep venous thrombosis) ICD Codes: I82.409 - Acute embolism and thrombosis of unspecified deep veins of unspecified lower extremity SNOMED: 763472541 Status: stable Assessment/Plan: iv abx follow up cultures ivf monitor renal fxn pain rx avoid sedatives. Subjective ROS Limited/Unobtainable: No Constitutional: Reports: malaise, weakness HEENT: Reports: no symptoms Cardiovascular: Reports: no symptoms Respiratory: Reports: no symptoms Gastrointestinal/Abdominal: Reports: poor appetite, poor fluid intake Genitourinary: Reports: no symptoms Neurologic/Psychiatric: Reports: depressed Endocrine: Reports: no symptoms Hematologic/Lymphatic: Reports: anemia Allergies: Coded Allergies: No Known Allergies (Verified , 05/29/09) All Systems: reviewed and negative except above Subjective less confused this am. more alert. head ct neg. on ivf. labs pending. on iv abx for esbl uti Objective Last 24 Hour Vital Signs Date Time Temp Pulse Resp B/P (MAP) Pulse Ox O2 Delivery O2 Flow Rate FiO2 03/15/20 14:56 126/63 03/15/20 12:00 98.0 80 20 126/63 (84) 98 03/15/20 09:46 76 136/61 03/15/20 09:45 76 139/61 03/15/20 08:00 97.2 76 18 139/61 (87) 99 03/15/20 05:52 102/58 03/15/20 04:00 97.8 82 21 123/58 (79) 99 03/15/20 00:00 97.0 85 21 113/61 (78) 99 03/14/20 22:45 Room Air 03/14/20 20:42 85 102/58 03/14/20 20:41 102/58 03/14/20 20:00 96.8 77 21 119/43 (68) 99 Intake and Output 03/14/20 03/15/20 19:00 07:00 Intake Total 720 ml 250 ml Output Total 400 ml 800 ml Balance 320 ml -550 ml Intake Oral 120 ml IV Total 600 ml Other 250 ml Output Urine Total 400 ml 800 ml Height (Feet): 5 Height (Inches): 4.00 Weight (Pounds): 145 Objective General Appearance: WD/WN, lethargic EENT: PERRL/EOMI, normal ENT inspection. left eye deviated to the left Neck: non-tender, normal alignment Cardiovascular: normal peripheral pulses, normal rate Respiratory/Chest: chest wall non-tender, lungs clear, normal breath sounds Abdomen: normal bowel sounds, non tender, soft, no organomegaly Extremities: normal range of motion, non-tender Edema: no edema noted Arm (L), no edema noted Arm (R) Neurologic: lethargic Skin: normal pigmentation Lymphatic: normal anterior cervical (L), normal anterior cervical (R) John Red MD Mar 15, 2020 16:14
[2020-03-15 16:19] LABS: BASOPHILS % (AUTO) 1.2 % (0.0-2.0); EOSINOPHILS % (AUTO) 1.3 % (0.0-3.0); HEMATOCRIT 34.4 % (37.0-47.0); HEMOGLOBIN 10.5 G/DL (12.0-16.0); LYMPHOCYTES % (AUTO) 22.2 % (20.0-45.0); MEAN CORPUSCULAR VOLUME 103 FL (80-99); MONOCYTES % (AUTO) 7.1 % (1.0-10.0); NEUTROPHILS % (AUTO) 68.3 % (45.0-75.0); PLATELET COUNT 138 K/UL (150-450); RED BLOOD COUNT 3.35 M/UL (4.20-5.40); RED CELL DISTRIBUTION WIDTH 15.7 % (11.6-14.8); WHITE BLOOD COUNT 4.2 K/UL (4.8-10.8)
[2020-03-15 17:32] LABS: ANION GAP 12 mmol/L (5-15); BLOOD UREA NITROGEN 27 mg/dL (7-18); CARBON DIOXIDE 22 MMOL/L (21-32); CHLORIDE 109 MMOL/L (98-107); CREATININE 1.5 MG/DL (0.55-1.30); POTASSIUM 3.8 MMOL/L (3.5-5.1); SODIUM 143 MMOL/L (136-145)
--- NOTE | 2020-03-15 19:20 | NUR ---
HAND-OFF: Report given to KEN Liu. Endorsed POC.
--- NOTE | 2020-03-15 19:30 | NUR ---
NURSE NOTES: Received patient in no apparent distress. A&OX3. Midline noted on right upper arm, patent and intact. Gonzalez draining well by gravity, yellow urine noted. Bed in lowest position. Call light within reach. Will continue to monitor.
[2020-03-15 20:00] VITALS: BP 121/64
[2020-03-15] MEDS: Dyna-Hex 2% Top Sol 2oz TOPIC SCH (21:43)
[2020-03-16] VITALS: BP 109/57
[2020-03-16 04:00] VITALS: BP 132/66
[2020-03-16] MEDS: HydrALAZINE 25mg tab ORAL SCH ×3 (05:25→22:43)
[2020-03-16 07:02] LABS: ANION GAP 10 mmol/L (5-15); BLOOD UREA NITROGEN 22 mg/dL (7-18); CALCIUM 8.8 MG/DL (8.5-10.1); CARBON DIOXIDE 23 MMOL/L (21-32); CHLORIDE 110 MMOL/L (98-107); CREATININE 1.3 MG/DL (0.55-1.30); POTASSIUM 4.1 MMOL/L (3.5-5.1); SODIUM 143 MMOL/L (136-145)
--- NOTE | 2020-03-16 07:25 | NUR ---
HAND-OFF: Report given to Hang ROGERS. VS stable. Call light within reach. Will continue to monitor.
--- NOTE | 2020-03-16 07:45 | NUR ---
NURSE NOTES: Received report from KEN Liu. Received pt lying in hospital bed. Pt is AAO x 4, able to make needs known, non ambulatory, on bedrest with R BKA. Pt is on RA with no s/s of distress noted or c/o pain. R UA midline in place with no s/s of infection or infiltration with IVF running NS at 150 ml/hr Gonzalez catheter in place. LBM per report is on 03/14. Safety and fall precaution implemented, bed on lowest position, call light within reach, bed alarm on. Will continue POC.
[2020-03-16 08:00] VITALS: BP 120/68
[2020-03-16] MEDS: Multivitamin w/Minerals tab ORAL SCH (09:02)
[2020-03-16] MEDS: azaTHIOprine 50 MG TAB ORAL SCH (09:02)
[2020-03-16] MEDS: cycloSPORINE 100mg cap ORAL SCH ×2 (09:03→21:02)
[2020-03-16] MEDS: Xarelto 10mg tab ORAL SCH (09:03)
[2020-03-16] MEDS: Piperacillin/Tazobactam 3.375 GM in NS 110 ML IVPB SCH (09:54)
--- NOTE | 2020-03-16 10:00 | Progress Note ---
DATE: 03/15/2020 CARDIOLOGY PROGRESS NOTE SUBJECTIVE: Less confused, more alert, on new antimicrobials for multi-drug resistant E. Coli urinary infection. PHYSICAL EXAMINATION: VITAL SIGNS: Blood pressure 126/63, heart rate 80, respiratory rate 20, afebrile. LUNGS: Clear. CARDIAC: Regular. ABDOMEN: Soft. EXTREMITIES: No edema. LABORATORY DATA: Pacemaker was interrogated yesterday and function is appropriate with adequate battery life. Amputation stump site clean and dry. IMPRESSION: Stable from cardiovascular standpoint. PLAN: Continue current plan of care. Matthew Tinajero M.D. DR: JESUS JOB#: [id number] CC:
[2020-03-16 12:00] VITALS: BP 126/72
--- NOTE | 2020-03-16 14:32 | Nephrology Progress Note ---
Assessment/Plan Problem List: (1) Urinary tract infection (2) Pyelonephritis (3) Diastolic CHF with preserved left ventricular function, NYHA class 2 (4) Incontinence of urine in female (5) Status post kidney transplant Plan meropenam given as prior esbl, needs ID consult to continue, usual transplant meds creatinine higher 2.0 hydrate,improved 1.3 check bladder scan 03/14 400+ and morin placed, US no hydro, dc morin, appears delusional notified dr vicente , to get psych opinion Subjective Constitutional: Reports: weakness HEENT: Reports: no symptoms Genitourinary: Reports: incontinence Neurologic/Psychiatric: Reports: pre-existing deficit Objective Objective Last 24 Hour Vital Signs Date Time Temp Pulse Resp B/P (MAP) Pulse Ox O2 Delivery O2 Flow Rate FiO2 03/16/20 12:00 98.6 81 18 126/72 (90) 97 03/16/20 09:02 74 120/68 03/16/20 09:02 74 120/68 03/16/20 09:00 Room Air 03/16/20 08:00 98.3 74 18 120/68 (85) 98 03/16/20 05:25 132/66 03/16/20 04:00 97.2 77 18 132/66 (88) 98 03/16/20 00:00 97.9 78 18 109/57 (74) 97 03/15/20 21:44 121/64 03/15/20 21:44 79 121/64 03/15/20 21:00 Room Air 03/15/20 20:00 98.2 79 18 121/64 (83) 98 03/15/20 16:00 97.9 78 19 130/66 (87) 98 03/15/20 14:56 126/63 Intake and Output 03/15/20 03/16/20 19:00 07:00 Intake Total 1360.0 ml 1280.0 ml Output Total 1000 ml 700 ml Balance 360.0 ml 580.0 ml Intake Oral 800 ml 120 ml IV Total 560.0 ml 1160.0 ml Output Urine Total 1000 ml 700 ml # Voids 3 Laboratory Tests 03/15/20 16:00: White Blood Count 4.2L, Red Blood Count 3.35L, Hemoglobin 10.5L, Hematocrit 34.4L, Mean Corpuscular Volume 103#H, Mean Corpuscular Hemoglobin 31.3H, Mean Corpuscular Hemoglobin Concent 30.4L, Red Cell Distribution Width 15.7H, Platelet Count 138L, Mean Platelet Volume 9.7, Neutrophils (%) (Auto) 68.3, Lymphocytes (%) (Auto) 22.2, Monocytes (%) (Auto) 7.1, Eosinophils (%) (Auto) 1.3, Basophils (%) (Auto) 1.2, Sodium Level 143, Potassium Level 3.8, Chloride Level 109H, Carbon Dioxide Level 22, Anion Gap 12, Blood Urea Nitrogen 27H, Creatinine 1.5H, Estimat Glomerular Filtration Rate 40.2, Glucose Level 146H, Calcium Level 9.0, Cyclosporine (by HPLC) [Pending] 03/16/20 06:10: Sodium Level 143, Potassium Level 4.1, Chloride Level 110H, Carbon Dioxide Level 23, Anion Gap 10, Blood Urea Nitrogen 22H, Creatinine 1.3, Estimat Glomerular Filtration Rate 47.6, Glucose Level 90, Calcium Level 8.8 Height (Feet): 5 Height (Inches): 4.00 Weight (Pounds): 145 General Appearance: no apparent distress, alert, confused EENT: normal ENT inspection Neck: normal alignment Cardiovascular: regular rhythm Respiratory/Chest: lungs clear Abdomen: non tender, soft Extremities: no edema 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
--- NOTE | 2020-03-16 15:00 | Consultation ---
DATE OF CONSULTATION: 03/16/2020 INFECTIOUS DISEASE CONSULTATION CONSULTING PHYSICIAN: Nikki Bob MD. REFERRING PHYSICIAN: John Red MD. REASON FOR CONSULTATION: Urinary tract infection. HISTORY OF PRESENT ILLNESS: This is an 80-year-old lady with history of diabetes, hypertension, and right [id number] amputation, who came in with abdominal pain, urinary frequency as well as urgency and pain. She was found to have urinary tract infection, and Infectious Disease consultation has been obtained for antibiotics. PAST MEDICAL HISTORY: 1. History of hypertension. 2. History of right BKA. 3. DVT. 4. History of kidney transplant. SOCIAL HISTORY: She does not smoke, drink, or use drugs. FAMILY HISTORY: Noncontributory. REVIEW OF SYSTEMS: RESPIRATORY: No fever, chills, cough, shortness of breath, or chest pain. CARDIAC: No chest pain. No palpitation. No dizziness. No syncope. GASTROINTESTINAL: No nausea. No vomiting. She does have abdominal pain. No diarrhea. GENITOURINARY: She had dysuria, urgency and frequency. MEDICATIONS: As an inpatient, she is on Zosyn, azathioprine, Remeron, Restoril, chlorhexidine gluconate, amlodipine, carvedilol, fludrocortisone, multivitamin, Protonix, Xarelto, cyclosporine, hydralazine, and Tylenol. ALLERGIES: No known drug allergies. PHYSICAL EXAMINATION: VITAL SIGNS: Temperature of 98.3, T-max of 98.3, pulse of 74, respiratory rate 18, blood pressure 120/68. O2 saturation of 98%. HEENT: Pupils are equally reactive to light and accommodation. Mouth appears clean without thrush. NECK: Supple. No adenopathy. No JVD. CARDIOVASCULAR: Regular rate and rhythm. No murmurs. LUNGS: Clear to auscultation bilaterally. No crackles. No wheezes. ABDOMEN: Soft, nontender. No organomegaly. EXTREMITIES: No cyanosis, no clubbing, no edema. Right stump is clean. LABORATORY AND DIAGNOSTIC DATA: White count 4.2, hemoglobin 10.5, hematocrit 34.4, MCV 103, platelet count of 138,000 with neutrophils of 68%. Sodium 143, potassium 4.1, chloride 110, bicarb 23, BUN 22, creatinine 1.3, glucose of 90, calcium of 8.8. Total bilirubin 0.7. AST 19, ALT 7, alkaline phosphatase 73. Total protein 7.2, albumin 2.9. Amylase of 79, lipase of 180. Urine culture is growing E. coli, which is an ESBL susceptible to piperacillin, meropenem, nitrofurantoin, tigecycline. Renal ultrasound showing unremarkable transplanted kidney. CT head showing age-related changes. CT abdomen and pelvis showing no bowel obstruction. Mild bladder wall thickening could indicate cystitis. Renal transplanted kidney hydronephrosis is not evident. It could be perinephric inflammation. Chest x-ray, no acute disease. ASSESSMENT: This is an 80-year-old lady with history of renal transplant, hypertension, right BKA, DVT, who comes in with abdominal pain, urgency and frequency of urination and is found to have, 1. ESBL E. coli urinary tract infection. 2. Renal failure is improving. 3. Anemia. 4. Hypertension. 5. Status post renal transplant. PLAN: 1. Discontinue Zosyn. 2. We will start the patient on meropenem. 3. We will follow up cultures and adjust antibiotics accordingly. I would like to thank Dr. Red for this consultation. Nikki Bob M.D. DR: LINSEY JOB#: [id number] CC:
--- NOTE | 2020-03-16 15:15 | NUR ---
NURSE NOTES: Discontinued Gonzalez catheter as ordered. Pt tolerated procedure well. Drained 1600 urine from drainage bag. Will continue to monitor.
--- NOTE | 2020-03-16 15:51 | NUR ---
CASE MANAGEMENT:REVIEW SI;ESBL UTI. PYELONEPHRITIS. COLITIS. DVT. 98.6 81 18 132/66 97% ON RA BUN 22 IS;MEROPENEM IV Q12 HR IVF NS @ 50 ML/HR ZOSYN IV Q12 HR IMURAN PO QD NORVASC PO QD COREG PO BID FLORINEF PO QD PROTONIX PO QD HYDRALAZINE PO Q12 HR MED SURG STATUS DCP;PATIENT IS FROM HOME
--- NOTE | 2020-03-16 15:53 | Surgery Progress Note ---
Surgery Progress Note Subjective Symptoms: improved, tolerating diet, voiding well, passing flatus Objective Last 24 Hour Vital Signs Date Time Temp Pulse Resp B/P (MAP) Pulse Ox O2 Delivery O2 Flow Rate FiO2 03/16/20 15:02 126/72 03/16/20 12:00 98.6 81 18 126/72 (90) 97 03/16/20 09:02 74 120/68 03/16/20 09:02 74 120/68 03/16/20 09:00 Room Air 03/16/20 08:00 98.3 74 18 120/68 (85) 98 03/16/20 05:25 132/66 03/16/20 04:00 97.2 77 18 132/66 (88) 98 03/16/20 00:00 97.9 78 18 109/57 (74) 97 03/15/20 21:44 121/64 03/15/20 21:44 79 121/64 03/15/20 21:00 Room Air 03/15/20 20:00 98.2 79 18 121/64 (83) 98 03/15/20 16:00 97.9 78 19 130/66 (87) 98 I&O Intake and Output 03/15/20 03/16/20 19:00 07:00 Intake Total 1360.0 ml 1280.0 ml Output Total 1000 ml 700 ml Balance 360.0 ml 580.0 ml Intake Oral 800 ml 120 ml IV Total 560.0 ml 1160.0 ml Output Urine Total 1000 ml 700 ml # Voids 3 Dressing: dry Wound: clean Cardiovascular: RSR Respiratory: clear Abdomen: soft, non-tender, present bowel sounds Extremities: no cyanosis Laboratory Tests Test 03/15/20 16:00 03/16/20 06:10 White Blood Count 4.2 K/UL (4.8-10.8) L Red Blood Count 3.35 M/UL (4.20-5.40) L Hemoglobin 10.5 G/DL (12.0-16.0) L Hematocrit 34.4 % (37.0-47.0) L Mean Corpuscular Volume 103 FL (80-99) #H Mean Corpuscular Hemoglobin 31.3 PG (27.0-31.0) H Mean Corpuscular Hemoglobin Concent 30.4 G/DL (32.0-36.0) L Red Cell Distribution Width 15.7 % (11.6-14.8) H Platelet Count 138 K/UL (150-450) L Mean Platelet Volume 9.7 FL (6.5-10.1) Neutrophils (%) (Auto) 68.3 % (45.0-75.0) Lymphocytes (%) (Auto) 22.2 % (20.0-45.0) Monocytes (%) (Auto) 7.1 % (1.0-10.0) Eosinophils (%) (Auto) 1.3 % (0.0-3.0) Basophils (%) (Auto) 1.2 % (0.0-2.0) Sodium Level 143 MMOL/L (136-145) 143 MMOL/L (136-145) Potassium Level 3.8 MMOL/L (3.5-5.1) 4.1 MMOL/L (3.5-5.1) Chloride Level 109 MMOL/L (98-107) H 110 MMOL/L (98-107) H Carbon Dioxide Level 22 MMOL/L (21-32) 23 MMOL/L (21-32) Anion Gap 12 mmol/L (5-15) 10 mmol/L (5-15) Blood Urea Nitrogen 27 mg/dL (7-18) H 22 mg/dL (7-18) H Creatinine 1.5 MG/DL (0.55-1.30) H 1.3 MG/DL (0.55-1.30) Estimat Glomerular Filtration Rate 40.2 mL/min (>60) 47.6 mL/min (>60) Glucose Level 146 MG/DL (74-106) H 90 MG/DL (74-106) Calcium Level 9.0 MG/DL (8.5-10.1) 8.8 MG/DL (8.5-10.1) Cyclosporine (by HPLC) Pending Plan Problems: (1) Abdominal pain Assessment & Plan: 80F with abdominal pain, decreased appetite, abnormal labs. Chest x-ray noted. On examination she has an abnormal mass palpated in the right lower quadrant around the prior incision. Unsure if scar tissue versus cyst versus infectious process. She is definitely tender in uncomfortable around this is mobile and difficult to palpating complete given discomfort. pancreatitis CT abdomen pelvis noted Fluid-filled colon, could indicate a diarrheal illness. No evidence of small bowel obstruction or other GI tract pathology. Mild bladder wall thickening, could indicate cystitis Right renal transplant kidney again demonstrated. Previously demonstrated transplant kidney hydronephrosis is not evident. Slight infiltration of the fat superior to the upper pole of the right kidney, of uncertain significance but could indicate a degree of perinephric inflammation Retrococcygeal and retrosacral decubitus changes. Evidence of decubitus changes of the left lower buttock region as well. Correlate with clinical findings Postsurgical changes, as described, including prior cholecystectomy, evidence of prior hysterectomy, left hip surgery, bilateral groin dialysis graft placement, pacemaker Small left lower lobe bulla Other findings as noted, including degenerative spondylosis, stable subcutaneous right upper pelvic lesion IV fluids IV antibiotics A.m. labs We will follow with recommendations thank you for let me participate in patient' s care Thomas Franklin Mar 16, 2020 15:53
[2020-03-16 16:00] VITALS: BP 140/77
[2020-03-16] MEDS: Meropenem 500 MG in NS 55 ML IVPB SCH (16:44)
--- NOTE | 2020-03-16 19:15 | Progress Note ---
DATE: 03/16/2020 CARDIOLOGY PROGRESS NOTE SUBJECTIVE: The patient is confused at times. No nausea, vomiting, or diarrhea. OBJECTIVE: VITAL SIGNS: Blood pressure 126/72, pulse 81, respirations 18, and afebrile. LUNGS: Clear. CARDIAC: Regular. ABDOMEN: Soft. No focal tenderness. Palpable transplant. EXTREMITIES: Amputation site is clean and dry with no edema. IMPRESSION: 1. Complicated urinary tract infection. 2. Sepsis. 3. Metabolic and toxic encephalopathies. 4. Hypertensive heart disease. 5. Renal transplant. 6. Acute on chronic kidney disease, improved. 7. Chronic diastolic CHF 8. Permanent pacemaker. 9. History of DVT. PLAN: 1. Antimicrobials per ID team. 2. Hydration with IV fluids until oral intake improves. 3. No additional antihypertensives presently indicated. 4. Continued full anticoagulation. Matthew Tinajero M.D. DR: LALY JOB#: [id number] CC: CATALINO
--- NOTE | 2020-03-16 19:25 | NUR ---
NURSE NOTES: Received report from chiara west. patient is on bed, awake and verbally responsive. confused. with picc line on the right upper arm running ns at 50 ml/hr. denies any pain or discomfort. uses bedpan. per jenna, " they discontinued the morin catheter with a post urine output of 1600ml. denies any pain or discomfort. call light and light button within easy reach. bed locked and in lowest position. will continue plan of care
--- NOTE | 2020-03-16 19:25 | NUR ---
HAND-OFF: Report given to KEN Middleton. Endorsed POC.
[2020-03-16 20:00] VITALS: BP 138/69
[2020-03-16] MEDS: Dyna-Hex 2% Top Sol 2oz TOPIC SCH (21:01)
--- NOTE | 2020-03-16 22:15 | NUR ---
NURSE NOTES: went to the room to check vitals for the medications that is due at 2200. noticed blood on the patient's bed. patient was holding the picc line. per patient" i was fixing my gown and i pulled it". patient is confused. applied pressure on the right upper arm. dressed with gauze and abd pads wrapped it with kerlix. dr. vicente is aware. per dr. vicente's orders to may have peripheral iv line; if unsuccessful to reorder picc line placement. charge nurse made aware.
[2020-03-17] VITALS: BP 130/72
[2020-03-17 04:00] VITALS: BP 136/74
[2020-03-17] MEDS: Meropenem 500 MG in NS 55 ML IVPB SCH ×2 (04:00→16:00)
--- NOTE | 2020-03-17 04:30 | Consultation ---
DATE OF CONSULTATION: 03/17/2020 CONSULTING PHYSICIAN: Syeda Price M.D. HISTORY OF PRESENT ILLNESS: The patient is an 80-year-old female with a history of depression who has been admitted to the hospital for medical problems including urinary tract infection. The patient has also history of DVT, hypertension, right BKA, and kidney transplant. The patient is withdrawn and has low appetite. Decreased energy, minimally verbal, not engaged. PAST PSYCHIATRIC HISTORY: The patient has a history of depression. Denies any psychiatric hospitalization. She has been having difficulty with cognition and memory. PAST MEDICAL HISTORY: Hypertension, kidney transplantation, history of urinary tract infection. ALLERGIES: No known drug allergies. SUBSTANCE ABUSE HISTORY: Denies any history of illicit drug use or alcohol. MENTAL STATUS EXAMINATION: The patient is oriented times, self, place, situation. She was able to answer questions. Mood is depressed. Affect is constricted. Congruent mood. Thought process is concrete. Thought content, no suicidal or homicidal ideation. Cognition is impaired. Insight and judgment are impaired. ASSESSMENT: AXIS I: Acute toxic encephalopathy, improved. Major depressive disorder. AXIS II: Deferred. AXIS III: Weight loss. AXIS IV: Low. AXIS V: 20. PLAN: 1. We will increase the Remeron to 30 mg at bedtime. 2. Provide the patient with reality orientation and supportive therapy. Syeda Price M.D. DR: BREEZY JOB#: [id number] CC:
[2020-03-17] MEDS: HydrALAZINE 25mg tab ORAL SCH ×3 (05:48→21:28)
[2020-03-17] MEDS ORDERED: Lidocaine 1% Plain 30 ml INJ PRN (06:23)
[2020-03-17] MEDS ORDERED: Heparin1,000 units/500ml Premix(Conc:2 units/ml) IV PRN (06:24)
--- NOTE | 2020-03-17 06:30 | NUR ---
NURSE NOTES: able to get consent via telephone call from the grand daughter (flaquita). the consent was verified by the charge nurse.
--- NOTE | 2020-03-17 06:47 | NUR ---
NURSE NOTES: patient refused to get clean up and changed the sheets." come back later". educated regarding the cleaning and changing of sheets to prevent skin breakdown. charge nurse made aware.
--- NOTE | 2020-03-17 07:34 | NUR ---
HAND-OFF: Report given to chiara valdez. patient is asleep no sob. call light and light button within easy reach. plan of care endorsed
--- NOTE | 2020-03-17 07:35 | NUR ---
NURSE NOTES: RECEIVED REPORT FROM KEN CUNNINGHAM. BED IS AAOX2. PATIENT IS AWAKE AND VERBALLY RESPONSIVE, BED BOUND. DENIES ANY PAIN OR SHORTNESS OF BREATH. WILL CONTINUE TO MONITOR
[2020-03-17 08:00] VITALS: BP 147/75
[2020-03-17] MEDS: azaTHIOprine 50 MG TAB ORAL SCH (08:33)
[2020-03-17] MEDS: Xarelto 10mg tab ORAL SCH (08:34)
[2020-03-17] MEDS: cycloSPORINE 100mg cap ORAL SCH ×2 (08:36→21:28)
[2020-03-17] MEDS: Multivitamin w/Minerals tab ORAL SCH (08:36)
[2020-03-17 09:45] LABS: ANION GAP 9 mmol/L (5-15); BLOOD UREA NITROGEN 13 mg/dL (7-18); CALCIUM 8.8 MG/DL (8.5-10.1); CARBON DIOXIDE 24 MMOL/L (21-32); CHLORIDE 111 MMOL/L (98-107); CREATININE 1.2 MG/DL (0.55-1.30); POTASSIUM 3.8 MMOL/L (3.5-5.1); SODIUM 144 MMOL/L (136-145)
[2020-03-17 12:00] VITALS: BP 135/75
--- NOTE | 2020-03-17 12:17 | General Progress Note ---
Assessment/Plan Problem List: (1) Abdominal pain ICD Codes: R10.9 - Abdominal pain SNOMED: 05757337 (2) Urinary tract infection (3) Colitis ICD Codes: K52.9 - Colitis SNOMED: 105852457 (4) Diarrhea ICD Codes: R19.7 - Diarrhea SNOMED: 28908666 (5) DVT (deep venous thrombosis) ICD Codes: I82.409 - Acute embolism and thrombosis of unspecified deep veins of unspecified lower extremity SNOMED: 174089439 Status: stable Assessment/Plan: iv abx per id follow up cultures ivf as needed monitor renal fxn pain rx avoid sedatives. psych appreciated dc planning once iv abx completed Subjective ROS Limited/Unobtainable: No Constitutional: Reports: malaise, weakness HEENT: Reports: no symptoms Cardiovascular: Reports: no symptoms Respiratory: Reports: no symptoms Gastrointestinal/Abdominal: Reports: no symptoms Genitourinary: Reports: no symptoms Neurologic/Psychiatric: Reports: anxiety, depressed Endocrine: Reports: no symptoms Hematologic/Lymphatic: Reports: anemia Allergies: Coded Allergies: No Known Allergies (Verified , 05/29/09) All Systems: reviewed and negative except above Subjective no new complaints. less depressed/anxious. ate most of breakfast. no fever or chills. on iv abx. difficult access. Objective Last 24 Hour Vital Signs Date Time Temp Pulse Resp B/P (MAP) Pulse Ox O2 Delivery O2 Flow Rate FiO2 03/17/20 09:00 Room Air 03/17/20 08:36 81 147/75 03/17/20 08:35 81 147/75 03/17/20 08:00 97.2 81 18 147/75 (99) 98 03/17/20 05:48 139/70 03/17/20 04:00 98.3 83 18 136/74 (94) 97 03/17/20 00:00 98.1 88 18 130/72 (91) 98 03/16/20 22:43 145/78 03/16/20 21:02 86 141/78 03/16/20 21:00 Room Air 03/16/20 20:00 97.5 90 18 138/69 (92) 98 03/16/20 16:00 97.8 18 140/77 (98) 98 03/16/20 15:15 Room Air 03/16/20 15:02 126/72 Intake and Output 03/16/20 03/17/20 19:00 07:00 Intake Total 105 ml 450 ml Output Total 1600 ml Balance -1495 ml 450 ml Intake Oral 450 ml IV Total 105 ml Output Urine Total 1600 ml # Voids 3 Laboratory Tests 03/17/20 07:15: Sodium Level 144, Potassium Level 3.8, Chloride Level 111H, Carbon Dioxide Level 24, Anion Gap 9, Blood Urea Nitrogen 13, Creatinine 1.2, Estimat Glomerular Filtration Rate 52.1, Glucose Level 100, Calcium Level 8.8 Height (Feet): 5 Height (Inches): 4.00 Weight (Pounds): 145 Objective General Appearance: WD/WN, lethargic EENT: PERRL/EOMI, normal ENT inspection. left eye deviated to the left Neck: non-tender, normal alignment Cardiovascular: normal peripheral pulses, normal rate Respiratory/Chest: chest wall non-tender, lungs clear, normal breath sounds Abdomen: normal bowel sounds, non tender, soft, no organomegaly Extremities: normal range of motion, non-tender Edema: no edema noted Arm (L), no edema noted Arm (R) Neurologic: lethargic Skin: normal pigmentation Lymphatic: normal anterior cervical (L), normal anterior cervical (R) John Red MD Mar 17, 2020 12:17
--- NOTE | 2020-03-17 13:13 | Surgery Progress Note ---
Surgery Progress Note Subjective Symptoms: improved, tolerating diet, voiding well, passing flatus, BM, pain decreased Objective Last 24 Hour Vital Signs Date Time Temp Pulse Resp B/P (MAP) Pulse Ox O2 Delivery O2 Flow Rate FiO2 03/17/20 12:00 97.2 80 18 135/75 (95) 99 03/17/20 09:00 Room Air 03/17/20 08:36 81 147/75 03/17/20 08:35 81 147/75 03/17/20 08:00 97.2 81 18 147/75 (99) 98 03/17/20 05:48 139/70 03/17/20 04:00 98.3 83 18 136/74 (94) 97 03/17/20 00:00 98.1 88 18 130/72 (91) 98 03/16/20 22:43 145/78 03/16/20 21:02 86 141/78 03/16/20 21:00 Room Air 03/16/20 20:00 97.5 90 18 138/69 (92) 98 03/16/20 16:00 97.8 18 140/77 (98) 98 03/16/20 15:15 Room Air 03/16/20 15:02 126/72 I&O Intake and Output 03/16/20 03/17/20 19:00 07:00 Intake Total 105 ml 450 ml Output Total 1600 ml Balance -1495 ml 450 ml Intake Oral 450 ml IV Total 105 ml Output Urine Total 1600 ml # Voids 3 Dressing: dry Wound: clean Cardiovascular: RSR Respiratory: clear Abdomen: soft, non-tender, present bowel sounds Extremities: no cyanosis Laboratory Tests Test 03/17/20 07:15 Sodium Level 144 MMOL/L (136-145) Potassium Level 3.8 MMOL/L (3.5-5.1) Chloride Level 111 MMOL/L (98-107) H Carbon Dioxide Level 24 MMOL/L (21-32) Anion Gap 9 mmol/L (5-15) Blood Urea Nitrogen 13 mg/dL (7-18) Creatinine 1.2 MG/DL (0.55-1.30) Estimat Glomerular Filtration Rate 52.1 mL/min (>60) Glucose Level 100 MG/DL (74-106) Calcium Level 8.8 MG/DL (8.5-10.1) Plan Problems: (1) Abdominal pain Assessment & Plan: 80F with abdominal pain, decreased appetite, abnormal labs. Chest x-ray noted. On examination she has an abnormal mass palpated in the right lower quadrant around the prior incision. Unsure if scar tissue versus cyst versus infectious process. She is definitely tender in uncomfortable around this is mobile and difficult to palpating complete given discomfort. pancreatitis CT abdomen pelvis noted Fluid-filled colon, could indicate a diarrheal illness. No evidence of small bowel obstruction or other GI tract pathology. Mild bladder wall thickening, could indicate cystitis Right renal transplant kidney again demonstrated. Previously demonstrated transplant kidney hydronephrosis is not evident. Slight infiltration of the fat superior to the upper pole of the right kidney, of uncertain significance but could indicate a degree of perinephric inflammation Retrococcygeal and retrosacral decubitus changes. Evidence of decubitus changes of the left lower buttock region as well. Correlate with clinical findings Postsurgical changes, as described, including prior cholecystectomy, evidence of prior hysterectomy, left hip surgery, bilateral groin dialysis graft placement, pacemaker Small left lower lobe bulla Other findings as noted, including degenerative spondylosis, stable subcutaneous right upper pelvic lesion IV fluids IV antibiotics A.m. labs We will follow with recommendations thank you for let me participate in patient' s care Thomas Franklin Mar 17, 2020 13:12
--- NOTE | 2020-03-17 14:02 | Nephrology Progress Note ---
Assessment/Plan Problem List: (1) Urinary tract infection (2) Pyelonephritis (3) Diastolic CHF with preserved left ventricular function, NYHA class 2 (4) Incontinence of urine in female (5) Status post kidney transplant Plan meropenam given as prior esbl, needs ID consult to continue, usual transplant meds creatinine higher 2.0 hydrate,improved 1.3 1.2 check bladder scan 03/14 400 + and morin placed, US no hydro, dc morin, feels better Subjective Constitutional: Reports: weakness HEENT: Reports: no symptoms Genitourinary: Reports: incontinence Neurologic/Psychiatric: Reports: no symptoms Objective Objective Last 24 Hour Vital Signs Date Time Temp Pulse Resp B/P (MAP) Pulse Ox O2 Delivery O2 Flow Rate FiO2 03/17/20 12:00 97.2 80 18 135/75 (95) 99 03/17/20 09:00 Room Air 03/17/20 08:36 81 147/75 03/17/20 08:35 81 147/75 03/17/20 08:00 97.2 81 18 147/75 (99) 98 03/17/20 05:48 139/70 03/17/20 04:00 98.3 83 18 136/74 (94) 97 03/17/20 00:00 98.1 88 18 130/72 (91) 98 03/16/20 22:43 145/78 03/16/20 21:02 86 141/78 03/16/20 21:00 Room Air 03/16/20 20:00 97.5 90 18 138/69 (92) 98 03/16/20 16:00 97.8 18 140/77 (98) 98 03/16/20 15:15 Room Air 03/16/20 15:02 126/72 Intake and Output 03/16/20 03/17/20 19:00 07:00 Intake Total 105 ml 450 ml Output Total 1600 ml Balance -1495 ml 450 ml Intake Oral 450 ml IV Total 105 ml Output Urine Total 1600 ml # Voids 3 Laboratory Tests 03/17/20 07:15: Sodium Level 144, Potassium Level 3.8, Chloride Level 111H, Carbon Dioxide Level 24, Anion Gap 9, Blood Urea Nitrogen 13, Creatinine 1.2, Estimat Glomerular Filtration Rate 52.1, Glucose Level 100, Calcium Level 8.8 Height (Feet): 5 Height (Inches): 4.00 Weight (Pounds): 145 General Appearance: no apparent distress, alert EENT: PERRL/EOMI, normal ENT inspection Cardiovascular: normal rate Respiratory/Chest: lungs clear Abdomen: non tender Neurologic: immigration services officer II-XII grossly normal Kade Cochran MD Mar 17, 2020 14:02
--- NOTE | 2020-03-17 15:30 | NUR ---
NURSE NOTES:WOUND CARE NOTES:Pt presented with indurated and purple area at sacrococcygeal area that is tender when minimally palpated(L)2.5cm x (W)3cm. Surrounding non-blanching erythema without induration or tenderness noted to sacrum, R and L gluteus. Hypopigmentation with small area of hyperpigmentation with historical scar L Hallux. L Heel is boggy with dry, hypopigmented skin. Non-tender when minimally palpated. R BKA stump is intact with bony protrusion at head of BKA Stump . No erythema noted . Cavilon Skin BArrier applied and covered with Optifoam drsg to minimize friction and pressure. Tx.plan: Apply Moisture Barrier Paste to Sacrum. Cover with Optifoam drsg. Change every 3 days and prn. Apply Cavilon Skin Barrier to R BKA. Cover stump with Optifoam drsg. Change every 7 days and prn. Apply Cavilon Skin BArrier to L Hallux and L Heel. Cover each site with Optifoam drsg. Change every 7 days and prn. Reposition at least every 2hours or as tolerated. Off-load L Heel and R BKA with Pilow. APM/LUISA Mattress overlay.
[2020-03-17 16:00] VITALS: BP 126/81
--- NOTE | 2020-03-17 19:16 | NUR ---
HAND-OFF: Report given to ANNE IBARRA RN.
--- NOTE | 2020-03-17 19:45 | NUR ---
NURSE NOTES: Received report from Kyaw RN.The patient is alert and oriented x2. She had no IV line. Was told by the previous nurse the resident removed her picc line. will continue to monitor
[2020-03-17 20:00] VITALS: BP 142/81
[2020-03-17] MEDS: Dyna-Hex 2% Top Sol 2oz TOPIC SCH (20:00)
--- NOTE | 2020-03-17 21:15 | Progress Note ---
DATE: 03/17/2020 SUBJECTIVE: More alert, appetite better. Denies shortness of breath. Still very weak. Remains with poor peripheral IV access. OBJECTIVE: VITAL SIGNS: Blood pressure 147/75, pulse 81, respirations 18. LUNGS: Diminished breath sounds. No rales. CARDIAC: Regular rhythm and rate. Normal S1, S2 with no new murmur. ABDOMEN: Soft. EXTREMITIES: With no edema. Amputation site is clean and dry. LABORATORY DATA: White count 4.2, hemoglobin 10.5. Sodium 144, potassium 3.8, bicarb 24, BUN 13, creatinine 1.2. IMPRESSION: 1. Pacemaker. 2. Hypertensive heart disease. 3. Diastolic dysfunction with chronic congestive heart failure. 4. Peripheral artery disease with amputation. 5. Dehydration. 6. Hypernatremia. 7. Urinary tract infection with multi-drug resistant E. coli and sepsis. 8. Poor peripheral IV access. 9. Acute kidney injury in the setting of renal transplant, now improved with hydration. 10. History of DVT. PLAN: Maintain adequate hydration and free water. Antimicrobials. PICC line for IV access. Pacemaker function is already confirmed several days ago. See prior notes. No additional antihypertensive therapy at this time. Continue full anticoagulation. Matthew Tinajero M.D. DR: DAVID JOB#: [id number] CC: CATALINO
[2020-03-18] VITALS: BP 142/64
[2020-03-18 04:00] VITALS: BP 145/75
[2020-03-18] MEDS: Meropenem 500 MG in NS 55 ML IVPB SCH ×2 (04:00→16:00)
--- NOTE | 2020-03-18 05:37 | NUR ---
NURSE NOTES: The resident is alert with some level of forgetfulness also noted. When tried to re-insert her IV line twice she refused. She was fitted with a low air mattress to preserve her skin integrity as indicated. will continue to monitor
[2020-03-18] MEDS: HydrALAZINE 25mg tab ORAL SCH ×3 (06:06→22:27)
--- NOTE | 2020-03-18 07:25 | NUR ---
NURSE NOTES: Received report from KEN Wilson. Received pt lying in hospital bed. Pt is AAO x 2-3, occasionally confused with anxiety and paranoia, able to make needs known, non ambulatory, on bedrest with R BKA. Pt is on RA with no s/s of distress noted or c/o pain. R UA midline was pulled out on 03/17/2020 per RN report. Attempts were made to insert a new IV to no avail. MD was made aware per report, pending new orders if any. LBM per report is on 03/17/20. Safety and fall precaution implemented, bed on lowest position, call light within reach, bed alarm on. Will continue POC.
--- NOTE | 2020-03-18 07:53 | NUR ---
HAND-OFF: Report given to Hang ROGERS.
[2020-03-18 08:00] VITALS: BP 140/77
[2020-03-18] MEDS: Multivitamin w/Minerals tab ORAL SCH (09:23)
[2020-03-18] MEDS: Xarelto 10mg tab ORAL SCH (09:23)
[2020-03-18] MEDS: azaTHIOprine 50 MG TAB ORAL SCH (09:23)
[2020-03-18] MEDS: cycloSPORINE 100mg cap ORAL SCH ×2 (09:23→21:23)
--- NOTE | 2020-03-18 10:02 | General Progress Note ---
Assessment/Plan Problem List: (1) Abdominal pain ICD Codes: R10.9 - Abdominal pain SNOMED: 07558825 (2) Urinary tract infection (3) Colitis ICD Codes: K52.9 - Colitis SNOMED: 333892127 (4) Diarrhea ICD Codes: R19.7 - Diarrhea SNOMED: 34649585 (5) DVT (deep venous thrombosis) ICD Codes: I82.409 - Acute embolism and thrombosis of unspecified deep veins of unspecified lower extremity SNOMED: 162291772 Status: stable Assessment/Plan: iv abx per id follow up cultures ivf as needed monitor renal fxn pain rx avoid sedatives. psych appreciated dc planning once iv abx completed Subjective ROS Limited/Unobtainable: No Constitutional: Reports: malaise, weakness HEENT: Reports: no symptoms Cardiovascular: Reports: no symptoms Respiratory: Reports: cough Gastrointestinal/Abdominal: Reports: abdominal pain Genitourinary: Reports: pain Neurologic/Psychiatric: Reports: no symptoms Endocrine: Reports: no symptoms Hematologic/Lymphatic: Reports: anemia Allergies: Coded Allergies: No Known Allergies (Verified , 05/29/09) All Systems: reviewed and negative except above Subjective no new complaints. less depressed/anxious. ate most of breakfast. no fever or chills. on iv abx. difficult access. Objective Last 24 Hour Vital Signs Date Time Temp Pulse Resp B/P (MAP) Pulse Ox O2 Delivery O2 Flow Rate FiO2 03/18/20 09:23 84 140/77 03/18/20 09:23 84 140/77 03/18/20 08:00 97.7 84 19 140/77 (98) 97 03/18/20 06:06 145/75 03/18/20 04:00 98.5 90 18 145/75 (98) 97 03/18/20 00:00 98.1 81 18 142/64 (90) 97 03/17/20 21:28 142/81 03/17/20 21:28 88 142/81 03/17/20 21:00 Room Air 03/17/20 20:00 98.4 88 18 142/81 (101) 99 03/17/20 16:00 97.5 81 18 126/81 (96) 98 03/17/20 14:20 135/75 03/17/20 12:00 97.2 80 18 135/75 (95) 99 Intake and Output 03/17/20 03/18/20 19:00 07:00 Intake Total 480 ml 475 ml Balance 480 ml 475 ml Intake Oral 480 ml 475 ml # Voids 3 5 Height (Feet): 5 Height (Inches): 4.00 Weight (Pounds): 145 Objective General Appearance: WD/WN, lethargic EENT: PERRL/EOMI, normal ENT inspection. left eye deviated to the left Neck: non-tender, normal alignment Cardiovascular: normal peripheral pulses, normal rate Respiratory/Chest: chest wall non-tender, lungs clear, normal breath sounds Abdomen: normal bowel sounds, non tender, soft, no organomegaly Extremities: normal range of motion, non-tender Edema: no edema noted Arm (L), no edema noted Arm (R) Neurologic: lethargic Skin: normal pigmentation Lymphatic: normal anterior cervical (L), normal anterior cervical (R) John Red MD Mar 18, 2020 10:02
--- NOTE | 2020-03-18 10:29 | Surgery Progress Note ---
Surgery Progress Note Subjective Symptoms: improved, tolerating diet, voiding well, passing flatus Objective Last 24 Hour Vital Signs Date Time Temp Pulse Resp B/P (MAP) Pulse Ox O2 Delivery O2 Flow Rate FiO2 03/18/20 09:23 84 140/77 03/18/20 09:23 84 140/77 03/18/20 08:00 97.7 84 19 140/77 (98) 97 03/18/20 06:06 145/75 03/18/20 04:00 98.5 90 18 145/75 (98) 97 03/18/20 00:00 98.1 81 18 142/64 (90) 97 03/17/20 21:28 142/81 03/17/20 21:28 88 142/81 03/17/20 21:00 Room Air 03/17/20 20:00 98.4 88 18 142/81 (101) 99 03/17/20 16:00 97.5 81 18 126/81 (96) 98 03/17/20 14:20 135/75 03/17/20 12:00 97.2 80 18 135/75 (95) 99 I&O Intake and Output 03/17/20 03/18/20 19:00 07:00 Intake Total 480 ml 475 ml Balance 480 ml 475 ml Intake Oral 480 ml 475 ml # Voids 3 5 Dressing: saturated Wound: clean Cardiovascular: RSR Respiratory: clear, decreased breath sounds Abdomen: soft, non-tender, present bowel sounds Extremities: no edema, no tenderness, no cyanosis Plan Problems: (1) Abdominal pain Assessment & Plan: 80F with abdominal pain, decreased appetite, abnormal labs. Chest x-ray noted. On examination she has an abnormal mass palpated in the right lower quadrant around the prior incision. Unsure if scar tissue versus cyst versus infectious process. She is definitely tender in uncomfortable around this is mobile and difficult to palpating complete given discomfort. pancreatitis CT abdomen pelvis noted Fluid-filled colon, could indicate a diarrheal illness. No evidence of small bowel obstruction or other GI tract pathology. Mild bladder wall thickening, could indicate cystitis Right renal transplant kidney again demonstrated. Previously demonstrated transplant kidney hydronephrosis is not evident. Slight infiltration of the fat superior to the upper pole of the right kidney, of uncertain significance but could indicate a degree of perinephric inflammation Retrococcygeal and retrosacral decubitus changes. Evidence of decubitus changes of the left lower buttock region as well. Correlate with clinical findings Postsurgical changes, as described, including prior cholecystectomy, evidence of prior hysterectomy, left hip surgery, bilateral groin dialysis graft placement, pacemaker Small left lower lobe bulla Other findings as noted, including degenerative spondylosis, stable subcutaneous right upper pelvic lesion IV fluids IV antibiotics A.m. labs We will follow with recommendations thank you for let me participate in patient' s care Thomas Franklin Mar 18, 2020 10:29
[2020-03-18 12:00] VITALS: BP 132/69
--- NOTE | 2020-03-18 14:02 | NUR ---
CHARGE NURSE NOTE: NO IV line - hard stick, notified.Pt needs PICC for IV antibiotics.(UTI). PICC placement for tomorrow.
--- NOTE | 2020-03-18 14:56 | Infectious Diseases Prog Note ---
Assessment/Plan Assessment/Plan A: 1. ESBL E. coli urinary tract infection. 2. Acute renal failure is improving. 3. Anemia. 4. Hypertension. 5. Status post renal transplant. PLAN: 1. continue meropenem. Subjective ROS Limited/Unobtainable: Yes Constitutional: Reports: anorexia Respiratory: Reports: no symptoms Gastrointestinal/Abdominal: Reports: other - abdominal pain Genitourinary: Reports: no symptoms Musculoskeletal: Reports: pain, other - R leg Allergies: Coded Allergies: No Known Allergies (Verified , 05/29/09) Objective Vital Signs Last 24 Hour Vital Signs Date Time Temp Pulse Resp B/P (MAP) Pulse Ox O2 Delivery O2 Flow Rate FiO2 03/18/20 14:00 132/69 03/18/20 09:23 84 140/77 03/18/20 09:23 84 140/77 03/18/20 09:00 Room Air 03/18/20 08:00 97.7 84 19 140/77 (98) 97 03/18/20 06:06 145/75 03/18/20 04:00 98.5 90 18 145/75 (98) 97 03/18/20 00:00 98.1 81 18 142/64 (90) 97 03/17/20 21:28 142/81 03/17/20 21:28 88 142/81 03/17/20 21:00 Room Air 03/17/20 20:00 98.4 88 18 142/81 (101) 99 03/17/20 16:00 97.5 81 18 126/81 (96) 98 Height (Feet): 5 Height (Inches): 4.00 Weight (Pounds): 145 General Appearance: no acute distress HEENT: mucous membranes moist Respiratory/Chest: lungs clear Cardiovascular: normal rate Abdomen: soft, non tender Extremities: no edema, other - R BKA Neurologic/Psychiatric: alert, oriented x 3, responsive Current Medications Medications (Trade) Dose Ordered Sig/Toya Route PRN Reason Start Time Stop Time Status Last Admin Dose Admin Acetaminophen (Tylenol) 650 mg Q4H PRN ORAL Mild Pain (Pain Scale 1-3) 03/12/20 01:45 04/11/20 01:44 Amlodipine Besylate (Norvasc) 5 mg DAILY ORAL 03/12/20 09:00 04/11/20 08:59 03/18/20 09:23 Azathioprine (Imuran) 75 mg DAILY ORAL 03/13/20 09:00 06/10/20 06:29 03/18/20 09:23 Carvedilol (Coreg) 3.125 mg EVERY 12 HOURS ORAL 03/12/20 09:00 04/11/20 08:59 03/18/20 09:23 Chlorhexidine Gluconate (Carissa-Hex 2%) 1 applic DAILY@2000 TOPIC 03/17/20 20:00 06/15/20 19:59 Cyclosporine (Neoral) 100 mg Q12HR ORAL 03/12/20 09:00 06/10/20 08:59 03/18/20 09:23 Fludrocortisone Acetate (Florinef) 0.1 mg DAILY ORAL 03/12/20 09:00 04/11/20 08:59 03/18/20 09:24 Hydralazine HCl (Apresoline) 25 mg EVERY 8 HOURS ORAL 03/12/20 06:00 06/10/20 05:59 03/18/20 14:00 Meropenem 500 mg/ Sodium Chloride 55 ml @ 110 mls/hr Q12H IVPB 03/16/20 16:00 03/21/20 15:59 03/16/20 16:44 Mirtazapine (Remeron) 30 mg BEDTIME ORAL 03/17/20 21:00 06/15/20 20:59 03/17/20 21:27 Multivitamins Therapeutic (Therapeutic Multivitamin) 1 ea DAILY ORAL 03/12/20 09:00 04/11/20 08:59 03/18/20 09:23 Pantoprazole (Protonix) 40 mg DAILY ORAL 03/12/20 09:00 04/11/20 08:59 03/18/20 09:23 Rivaroxaban (Xarelto) 10 mg DAILY ORAL 03/12/20 09:00 06/10/20 08:59 03/18/20 09:23 Sodium Chloride 1,000 ml @ 50 mls/hr Q20H IV 03/16/20 11:55 04/15/20 11:54 03/16/20 12:14 Temazepam (Restoril) 15 mg BEDTIME ORAL 03/12/20 21:00 03/19/20 20:59 03/17/20 21:28 Lucian Maguire MD Mar 18, 2020 14:55
[2020-03-18 16:00] VITALS: BP 130/73
--- NOTE | 2020-03-18 17:24 | Nephrology Progress Note ---
Assessment/Plan Problem List: (1) Urinary tract infection (2) Pyelonephritis (3) Diastolic CHF with preserved left ventricular function, NYHA class 2 (4) Incontinence of urine in female (5) Status post kidney transplant Plan meropenam given as prior esbl, needs ID consult to continue, usual transplant meds creatinine higher 2.0 hydrate,improved 1.3 1.2 check bladder scan 03/14 400 + and morin placed, US no hydro, dc morin, feels better, depreseed Subjective Constitutional: Reports: weakness HEENT: Reports: no symptoms Genitourinary: Reports: burning, incontinence Neurologic/Psychiatric: Reports: no symptoms Objective Objective Last 24 Hour Vital Signs Date Time Temp Pulse Resp B/P (MAP) Pulse Ox O2 Delivery O2 Flow Rate FiO2 03/18/20 16:00 98.1 93 18 130/73 (92) 97 03/18/20 14:00 132/69 03/18/20 12:00 97.7 74 18 132/69 (90) 96 03/18/20 09:23 84 140/77 03/18/20 09:23 84 140/77 03/18/20 09:00 Room Air 03/18/20 08:00 97.7 84 19 140/77 (98) 97 03/18/20 06:06 145/75 03/18/20 04:00 98.5 90 18 145/75 (98) 97 03/18/20 00:00 98.1 81 18 142/64 (90) 97 03/17/20 21:28 142/81 03/17/20 21:28 88 142/81 03/17/20 21:00 Room Air 03/17/20 20:00 98.4 88 18 142/81 (101) 99 Intake and Output 03/17/20 03/18/20 19:00 07:00 Intake Total 480 ml 475 ml Balance 480 ml 475 ml Intake Oral 480 ml 475 ml # Voids 3 5 Height (Feet): 5 Height (Inches): 4.00 Weight (Pounds): 145 General Appearance: alert EENT: normal ENT inspection Neck: normal alignment Cardiovascular: normal rate Respiratory/Chest: lungs clear Abdomen: soft Extremities: no edema Neurologic: internal control consultant II-XII grossly normal Kade Cochran MD Mar 18, 2020 17:24
--- NOTE | 2020-03-18 18:06 | NUR ---
NURSE NOTES: Received telephone consent from granddaughter, Liya Vazquez, for patient's planned PICC placement tomorrow, 03/19/2020. Filed informed consent into patient's chart.
--- NOTE | 2020-03-18 19:05 | NUR ---
HAND-OFF: Report given to KEN Mayorga. POC endorsed.
[2020-03-18 20:00] VITALS: BP 130/78
[2020-03-18] MEDS: Dyna-Hex 2% Top Sol 2oz TOPIC SCH (20:00)
--- NOTE | 2020-03-18 20:00 | Progress Note ---
DATE: 03/18/2020 CARDIOLOGY PROGRESS NOTE SUBJECTIVE: Overall unchanged. Appetite better. No chest pain or shortness of breath. Remains on antimicrobials. PHYSICAL EXAMINATION: VITAL SIGNS: Blood pressure 140/77, pulse 84, respirations 19. HEENT: Mild temporal wasting. Dry mucous membranes. NECK: Supple. LUNGS: Clear. CARDIAC: Regular. Normal S1, S2. A 1/6 systolic murmur at apex. ABDOMEN: Soft. EXTREMITIES: With no edema and amputation sites with no skin breakdown. IMPRESSION: 1. Complicated urinary tract infection with sepsis. 2. Pacemaker. 3. Metabolic and toxic encephalopathies. 4. History of DVT, on chronic anticoagulation. 5. Peripheral artery disease with amputation. 6. Hypertensive heart disease. 7. Decubitus. 8. Renal transplant, [id number] renal failure, resolving. PLAN: Antimicrobials. Skin care. Nutritional support. Central venous access if unable to obtain adequate peripheral access. Antimicrobials per Infectious Disease consultant dietitian. IV fluid hydration as needed. Matthew Tinajero M.D. DR: JAYDA JOB#: [id number] CC:
--- NOTE | 2020-03-18 20:00 | NUR ---
NURSE NOTES: RECEIVED PATIENT LYING IN BED, AWAKE, ALERT/ORIENTED TO PERSON ONLY, REALITY ORIENTATION PROVIDED DURING ASSESSMENT. RECEIVED WITHOUT IV ACCESS, PICC PLACEMENT 03/19/20, GRAND DAUGHTER PROVIDED TELEPHONE CONSENT. NO SIGNS AND SYMPTOMS OF ACUTE CARDIO RESPIRATORY DISTRESS/SHORTNESS OF BREATH, DENIES CHEST PAIN, NO PERIPHERAL EDEMA NOTED. RIGHT BKA, NOTED WITH OPTIFOAM DRESSING FOR PREVENTIVE CARE. LEFT FOOT MEDIAL/LATERAL DTI, 4TH 5TH DIGIT DTI/NOTED WITH OPTIFOAM DRESSING, ELEVATED OF PILLOW FOR COMFORT/PRESSURE RELIEF, TOLERATING WELL, REFUSED REPOSITIONING. SIDE RAILS UP X3/BED IN LOWEST POSITION FOR SAFETY, ENCOURAGED PATIENT TO UTILIZE CALL LIGHT FOR ASSISTANCE, VERBALIZED UNDERSTANDING. CONTINUE WITH CURRENT PLAN OF CARE. NAD.
--- NOTE | 2020-03-18 21:59 | Psych Consult Progress Note ---
Psychiatry Progress Note Psychiatry Progress Note Medications Current Medications Medications (Trade) Dose Ordered Sig/Toya Route PRN Reason Start Time Stop Time Status Last Admin Dose Admin Acetaminophen (Tylenol) 650 mg Q4H PRN ORAL Mild Pain (Pain Scale 1-3) 03/12/20 01:45 04/11/20 01:44 Amlodipine Besylate (Norvasc) 5 mg DAILY ORAL 03/12/20 09:00 04/11/20 08:59 03/18/20 09:23 Azathioprine (Imuran) 75 mg DAILY ORAL 03/13/20 09:00 06/10/20 06:29 03/18/20 09:23 Carvedilol (Coreg) 3.125 mg EVERY 12 HOURS ORAL 03/12/20 09:00 04/11/20 08:59 03/18/20 21:26 Chlorhexidine Gluconate (Carissa-Hex 2%) 1 applic DAILY@2000 TOPIC 03/17/20 20:00 06/15/20 19:59 Cyclosporine (Neoral) 100 mg Q12HR ORAL 03/12/20 09:00 06/10/20 08:59 03/18/20 21:23 Fludrocortisone Acetate (Florinef) 0.1 mg DAILY ORAL 03/12/20 09:00 04/11/20 08:59 03/18/20 09:24 Hydralazine HCl (Apresoline) 25 mg EVERY 8 HOURS ORAL 03/12/20 06:00 06/10/20 05:59 03/18/20 14:00 Meropenem 500 mg/ Sodium Chloride 55 ml @ 110 mls/hr Q12H IVPB 03/16/20 16:00 03/21/20 15:59 03/16/20 16:44 Mirtazapine (Remeron) 30 mg BEDTIME ORAL 03/17/20 21:00 06/15/20 20:59 03/18/20 21:23 Multivitamins Therapeutic (Therapeutic Multivitamin) 1 ea DAILY ORAL 03/12/20 09:00 04/11/20 08:59 03/18/20 09:23 Pantoprazole (Protonix) 40 mg DAILY ORAL 03/12/20 09:00 04/11/20 08:59 03/18/20 09:23 Rivaroxaban (Xarelto) 10 mg DAILY ORAL 6/8/20 09:00 06/10/20 08:59 03/18/20 09:23 Sodium Chloride 1,000 ml @ 50 mls/hr Q20H IV 03/16/20 11:55 04/15/20 11:54 03/16/20 12:14 Temazepam (Restoril) 15 mg BEDTIME ORAL 03/12/20 21:00 03/19/20 20:59 03/18/20 21:23 Neurological/Psychiatric: Reports: anxiety, depressed, emotional problems Allergies: Coded Allergies: No Known Allergies (Verified , 05/29/09) Objective Data Height (Feet): 5 Height (Inches): 4.00 Weight (Pounds): 145 Additional Comments: oriented times, self, place, situation. She was able to answer questions. Mood is depressed. Affect is constricted. Congruent mood. Thought process is concrete. Thought content, no suicidal or homicidal ideation. Cognition is impaired. Insight and judgment are impaired. Assessment/Plan Status: stable Status Narrative ASSESSMENT: AXIS I: Acute toxic encephalopathy, improved. Major depressive disorder. AXIS II: Deferred. AXIS III: Weight loss. AXIS IV: Low. AXIS V: 20. PLAN: 1. We will increase the Remeron to 30 mg at bedtime. 2. Provide the patient with reality orientation and supportive therapy. Syeda Price MD Mar 18, 2020 21:59
[2020-03-19] VITALS: BP 128/72
[2020-03-19 04:00] VITALS: BP 130/71
[2020-03-19] MEDS: Meropenem 500 MG in NS 55 ML IVPB SCH ×2 (04:00→17:16)
--- NOTE | 2020-03-19 06:11 | NUR ---
NURSE NOTES: RESTED WELL, NO SIGNIFICANT CHANGE OF CONDITION NOTED THROUGHOUT THE NIGHT. SAFETY MAINTAINED. NAD.
[2020-03-19] MEDS: HydrALAZINE 25mg tab ORAL SCH ×3 (06:37→20:57)
--- NOTE | 2020-03-19 07:24 | NUR ---
HAND-OFF: Report given to KEN PIEDRA.
[2020-03-19 08:00] VITALS: BP 143/78
--- NOTE | 2020-03-19 08:01 | NUR ---
NURSE NOTES: Report received from JERRY De Paz. Patient received awake in bed, alert and oriented x 2-3, no c/o any pain or discomfort at this time, no SOB, bed in low position with breaks engaged and alarm on, no IV access, MD aware, will continue to monitor for changes and proceed with plan of care, call light within reach at all times.
[2020-03-19 09:07] LABS: ANION GAP 9 mmol/L (5-15); BLOOD UREA NITROGEN 10 mg/dL (7-18); CALCIUM 8.6 MG/DL (8.5-10.1); CARBON DIOXIDE 25 MMOL/L (21-32); CHLORIDE 109 MMOL/L (98-107); POTASSIUM 3.7 MMOL/L (3.5-5.1); SODIUM 143 MMOL/L (136-145)
[2020-03-19] MEDS: Xarelto 10mg tab ORAL SCH (09:32)
[2020-03-19] MEDS: cycloSPORINE 100mg cap ORAL SCH ×2 (09:33→20:58)
[2020-03-19] MEDS: azaTHIOprine 50 MG TAB ORAL SCH (09:33)
[2020-03-19] MEDS: Multivitamin w/Minerals tab ORAL SCH (09:34)
--- NOTE | 2020-03-19 10:22 | General Progress Note ---
Assessment/Plan Problem List: (1) Abdominal pain ICD Codes: R10.9 - Abdominal pain SNOMED: 72997663 (2) Urinary tract infection (3) Colitis ICD Codes: K52.9 - Colitis SNOMED: 959236192 (4) Diarrhea ICD Codes: R19.7 - Diarrhea SNOMED: 63039370 (5) DVT (deep venous thrombosis) ICD Codes: I82.409 - Acute embolism and thrombosis of unspecified deep veins of unspecified lower extremity SNOMED: 883369665 Status: stable Assessment/Plan: iv abx per id follow up cultures ivf as needed monitor renal fxn pain rx avoid sedatives. psych appreciated rx called to [facility] [place] planning once iv abx completed Subjective ROS Limited/Unobtainable: No Constitutional: Reports: malaise, weakness HEENT: Reports: no symptoms Cardiovascular: Reports: no symptoms Respiratory: Reports: no symptoms Gastrointestinal/Abdominal: Reports: no symptoms Genitourinary: Reports: no symptoms Neurologic/Psychiatric: Reports: depressed Endocrine: Reports: no symptoms Hematologic/Lymphatic: Reports: no symptoms Allergies: Coded Allergies: No Known Allergies (Verified , 05/29/09) All Systems: reviewed and negative except above Subjective no new complaints. less depressed/anxious. remains on iv abx. pain controlled. no bleeding. no cp/sob. Objective Last 24 Hour Vital Signs Date Time Temp Pulse Resp B/P (MAP) Pulse Ox O2 Delivery O2 Flow Rate FiO2 03/19/20 09:34 83 143/78 03/19/20 09:33 83 143/78 03/19/20 08:00 97.7 83 19 143/78 (99) 98 03/19/20 06:37 133/75 03/19/20 04:00 98.5 84 18 130/71 (90) 97 03/19/20 00:00 98.6 85 18 128/72 (90) 98 03/18/20 22:27 141/72 03/18/20 21:26 85 144/78 03/18/20 21:00 Room Air 03/18/20 20:00 98.2 88 18 130/78 (95) 98 03/18/20 16:00 98.1 93 18 130/73 (92) 97 03/18/20 14:00 132/69 03/18/20 12:00 97.7 74 18 132/69 (90) 96 Intake and Output 03/18/20 03/19/20 19:00 07:00 Intake Total 600 ml 420 ml Balance 600 ml 420 ml Intake Oral 600 ml 420 ml # Voids 3 2 # Bowel Movements 1 1 Laboratory Tests 03/19/20 08:25: Sodium Level 143, Potassium Level 3.7, Chloride Level 109H, Carbon Dioxide Level 25, Anion Gap 9, Blood Urea Nitrogen 10, Creatinine 1.0, Estimat Glomerular Filtration Rate > 60, Glucose Level 127H, Calcium Level 8.6 Height (Feet): 5 Height (Inches): 4.00 Weight (Pounds): 145 Objective General Appearance: WD/WN, lethargic EENT: PERRL/EOMI, normal ENT inspection. left eye deviated to the left Neck: non-tender, normal alignment Cardiovascular: normal peripheral pulses, normal rate Respiratory/Chest: chest wall non-tender, lungs clear, normal breath sounds Abdomen: normal bowel sounds, non tender, soft, no organomegaly Extremities: normal range of motion, non-tender Edema: no edema noted Arm (L), no edema noted Arm (R) Neurologic: lethargic Skin: normal pigmentation Lymphatic: normal anterior cervical (L), normal anterior cervical (R) John Red MD Mar 19, 2020 10:22
--- NOTE | 2020-03-19 11:11 | Infectious Diseases Prog Note ---
Assessment/Plan Assessment/Plan antibiotics : meropenem A 1. e.coli esbl UTI 2, hypertension 3. s/p renal transplant 4. renal failure improving 5. s/p right BKA P 1. continue meropenem 2 more days 2. will follow up cultures Subjective Constitutional: Denies: fever, chills Respiratory: Denies: shortness of breath, dry cough Gastrointestinal/Abdominal: Denies: nausea, vomiting, diarrhea Musculoskeletal: Reports: pain Allergies: Coded Allergies: No Known Allergies (Verified , 05/29/09) Objective Vital Signs Last 24 Hour Vital Signs Date Time Temp Pulse Resp B/P (MAP) Pulse Ox O2 Delivery O2 Flow Rate FiO2 03/19/20 09:34 83 143/78 03/19/20 09:33 83 143/78 03/19/20 09:00 Room Air 03/19/20 08:00 97.7 83 19 143/78 (99) 98 03/19/20 06:37 133/75 03/19/20 04:00 98.5 84 18 130/71 (90) 97 03/19/20 00:00 98.6 85 18 128/72 (90) 98 03/18/20 22:27 141/72 03/18/20 21:26 85 144/78 03/18/20 21:00 Room Air 03/18/20 20:00 98.2 88 18 130/78 (95) 98 03/18/20 16:00 98.1 93 18 130/73 (92) 97 03/18/20 14:00 132/69 03/18/20 12:00 97.7 74 18 132/69 (90) 96 Height (Feet): 5 Height (Inches): 4.00 Weight (Pounds): 145 Respiratory/Chest: lungs clear Cardiovascular: normal rate, regular rhythm, no gallop/murmur Abdomen: soft, non tender Extremities: no edema, other - right stump clean Laboratory Tests Test 03/19/20 08:25 Sodium Level 143 MMOL/L (136-145) Potassium Level 3.7 MMOL/L (3.5-5.1) Chloride Level 109 MMOL/L (98-107) H Carbon Dioxide Level 25 MMOL/L (21-32) Anion Gap 9 mmol/L (5-15) Blood Urea Nitrogen 10 mg/dL (7-18) Creatinine 1.0 MG/DL (0.55-1.30) Estimat Glomerular Filtration Rate > 60 mL/min (>60) Glucose Level 127 MG/DL (74-106) H Calcium Level 8.6 MG/DL (8.5-10.1) Current Medications Medications (Trade) Dose Ordered Sig/Toya Route PRN Reason Start Time Stop Time Status Last Admin Dose Admin Acetaminophen (Tylenol) 650 mg Q4H PRN ORAL Mild Pain (Pain Scale 1-3) 03/12/20 01:45 04/11/20 01:44 Amlodipine Besylate (Norvasc) 5 mg DAILY ORAL 03/12/20 09:00 04/11/20 08:59 03/19/20 09:34 Azathioprine (Imuran) 75 mg DAILY ORAL 03/13/20 09:00 06/10/20 06:29 03/19/20 09:33 Carvedilol (Coreg) 3.125 mg EVERY 12 HOURS ORAL 03/12/20 09:00 04/11/20 08:59 03/19/20 09:33 Chlorhexidine Gluconate (Carissa-Hex 2%) 1 applic DAILY@2000 TOPIC 03/17/20 20:00 06/15/20 19:59 Cyclosporine (Neoral) 100 mg Q12HR ORAL 03/12/20 09:00 06/10/20 08:59 03/19/20 09:33 Fludrocortisone Acetate (Florinef) 0.1 mg DAILY ORAL 03/12/20 09:00 04/11/20 08:59 03/19/20 09:33 Hydralazine HCl (Apresoline) 25 mg EVERY 8 HOURS ORAL 03/12/20 06:00 06/10/20 05:59 03/19/20 06:37 Meropenem 500 mg/ Sodium Chloride 55 ml @ 110 mls/hr Q12H IVPB 03/16/20 16:00 03/21/20 15:59 03/16/20 16:44 Mirtazapine (Remeron) 30 mg BEDTIME ORAL 03/17/20 21:00 06/15/20 20:59 03/18/20 21:23 Multivitamins Therapeutic (Therapeutic Multivitamin) 1 ea DAILY ORAL 03/12/20 09:00 04/11/20 08:59 03/19/20 09:34 Pantoprazole (Protonix) 40 mg DAILY ORAL 03/12/20 09:00 04/11/20 08:59 03/19/20 09:34 Rivaroxaban (Xarelto) 10 mg DAILY ORAL 03/12/20 09:00 06/10/20 08:59 03/19/20 09:32 Sodium Chloride 1,000 ml @ 50 mls/hr Q20H IV 03/16/20 11:55 04/15/20 11:54 03/16/20 12:14 Temazepam (Restoril) 15 mg BEDTIME ORAL 03/12/20 21:00 03/19/20 20:59 03/18/20 21:23 Nikki Bob MD Mar 19, 2020 11:11
[2020-03-19 12:00] VITALS: BP 137/73
--- NOTE | 2020-03-19 13:55 | Surgery Progress Note ---
Surgery Progress Note Subjective Symptoms: improved, tolerating diet, voiding well, passing flatus, BM, pain decreased Objective Last 24 Hour Vital Signs Date Time Temp Pulse Resp B/P (MAP) Pulse Ox O2 Delivery O2 Flow Rate FiO2 03/19/20 13:09 137/73 03/19/20 12:00 97.7 78 19 137/73 (94) 98 03/19/20 09:34 83 143/78 03/19/20 09:33 83 143/78 03/19/20 09:00 Room Air 03/19/20 08:00 97.7 83 19 143/78 (99) 98 03/19/20 06:37 133/75 03/19/20 04:00 98.5 84 18 130/71 (90) 97 03/19/20 00:00 98.6 85 18 128/72 (90) 98 03/18/20 22:27 141/72 03/18/20 21:26 85 144/78 03/18/20 21:00 Room Air 03/18/20 20:00 98.2 88 18 130/78 (95) 98 03/18/20 16:00 98.1 93 18 130/73 (92) 97 03/18/20 14:00 132/69 I&O Intake and Output 03/18/20 03/19/20 19:00 07:00 Intake Total 600 ml 420 ml Balance 600 ml 420 ml Intake Oral 600 ml 420 ml # Voids 3 2 # Bowel Movements 1 1 Dressing: dry Wound: clean Cardiovascular: RSR Respiratory: clear Abdomen: soft, non-tender, present bowel sounds Extremities: no edema, no tenderness, no cyanosis Laboratory Tests Test 03/19/20 08:25 Sodium Level 143 MMOL/L (136-145) Potassium Level 3.7 MMOL/L (3.5-5.1) Chloride Level 109 MMOL/L (98-107) H Carbon Dioxide Level 25 MMOL/L (21-32) Anion Gap 9 mmol/L (5-15) Blood Urea Nitrogen 10 mg/dL (7-18) Creatinine 1.0 MG/DL (0.55-1.30) Estimat Glomerular Filtration Rate > 60 mL/min (>60) Glucose Level 127 MG/DL (74-106) H Calcium Level 8.6 MG/DL (8.5-10.1) Plan Problems: (1) Abdominal pain Assessment & Plan: 80F with abdominal pain, decreased appetite, abnormal labs. Chest x-ray noted. On examination she has an abnormal mass palpated in the right lower quadrant around the prior incision. Unsure if scar tissue versus cyst versus infectious process. She is definitely tender in uncomfortable around this is mobile and difficult to palpating complete given discomfort. pancreatitis CT abdomen pelvis noted Fluid-filled colon, could indicate a diarrheal illness. No evidence of small bowel obstruction or other GI tract pathology. Mild bladder wall thickening, could indicate cystitis Right renal transplant kidney again demonstrated. Previously demonstrated transplant kidney hydronephrosis is not evident. Slight infiltration of the fat superior to the upper pole of the right kidney, of uncertain significance but could indicate a degree of perinephric inflammation Retrococcygeal and retrosacral decubitus changes. Evidence of decubitus changes of the left lower buttock region as well. Correlate with clinical findings Postsurgical changes, as described, including prior cholecystectomy, evidence of prior hysterectomy, left hip surgery, bilateral groin dialysis graft placement, pacemaker Small left lower lobe bulla Other findings as noted, including degenerative spondylosis, stable subcutaneous right upper pelvic lesion IV fluids IV antibiotics A.m. labs We will follow with recommendations thank you for let me participate in patient' s care Thomas Franklin Mar 19, 2020 13:55
--- NOTE | 2020-03-19 14:01 | Nephrology Progress Note ---
Assessment/Plan Problem List: (1) Urinary tract infection (2) Pyelonephritis (3) Diastolic CHF with preserved left ventricular function, NYHA class 2 (4) Incontinence of urine in female (5) Status post kidney transplant Plan meropenam given as prior esbl, needs ID consult to continue, usual transplant meds creatinine higher 2.0 hydrate,improved 1.3 1.2 check bladder scan 03/14 400 + and morin placed, US no hydro, dc morin, feels weak and chronic abd pain, concern for colitis, depreseed Subjective Constitutional: Reports: weakness Genitourinary: Reports: incontinence Neurologic/Psychiatric: Reports: no symptoms Objective Objective Last 24 Hour Vital Signs Date Time Temp Pulse Resp B/P (MAP) Pulse Ox O2 Delivery O2 Flow Rate FiO2 03/19/20 13:09 137/73 03/19/20 12:00 97.7 78 19 137/73 (94) 98 03/19/20 09:34 83 143/78 03/19/20 09:33 83 143/78 03/19/20 09:00 Room Air 03/19/20 08:00 97.7 83 19 143/78 (99) 98 03/19/20 06:37 133/75 03/19/20 04:00 98.5 84 18 130/71 (90) 97 03/19/20 00:00 98.6 85 18 128/72 (90) 98 03/18/20 22:27 141/72 03/18/20 21:26 85 144/78 03/18/20 21:00 Room Air 03/18/20 20:00 98.2 88 18 130/78 (95) 98 03/18/20 16:00 98.1 93 18 130/73 (92) 97 Intake and Output 03/18/20 03/19/20 19:00 07:00 Intake Total 600 ml 420 ml Balance 600 ml 420 ml Intake Oral 600 ml 420 ml # Voids 3 2 # Bowel Movements 1 1 Laboratory Tests 03/19/20 08:25: Sodium Level 143, Potassium Level 3.7, Chloride Level 109H, Carbon Dioxide Level 25, Anion Gap 9, Blood Urea Nitrogen 10, Creatinine 1.0, Estimat Glomerular Filtration Rate > 60, Glucose Level 127H, Calcium Level 8.6 Height (Feet): 5 Height (Inches): 4.00 Weight (Pounds): 145 General Appearance: no apparent distress, alert EENT: normal ENT inspection Neck: normal alignment Cardiovascular: regular rhythm Respiratory/Chest: lungs clear Abdomen: other - mild diffuse tender Extremities: no edema Neurologic: parquetry layer II-XII grossly normal Kade Cochran MD Mar 19, 2020 14:01
--- NOTE | 2020-03-19 16:37 | Diagnostic Imaging Report ---
Indication: Reason For Exam: IV Technique: Informed consent was obtained. Fluoroscopy time: 3.5 seconds Ultrasound was utilized to determine vessel patency and for needle placement. Vessel was patent. All elements of maximal sterile barrier technique were followed including: Hand hygiene and cap and mask and sterile gown and sterile gloves and a large sterile drape and 2% chlorhexidine for cutaneous antisepsis. Under local anesthesia with 1% lidocaine, the right brachial vein was entered with a needle under direct ultrasound visualization. Then, under fluoroscopic visualization, a wire was placed through the needle into the axilla. The wire would not pass beyond this point. A peel-away sheath was placed. A 4 [place] double-lumen PICC line was cut to 22 cm. This was placed over the wire, through the sheath, into the right axilla. The wire and sheath were removed. Under fluoroscopy, the tip of the PICC line was determined to be at the axilla. The PICC line was in usual fashion. The patient tolerated the procedure well and left radiology in good condition. Impression: Successful placement of a 4 [place] double-lumen PICC line via the right brachial vein, 22 cm from the skin, with the tip in the axilla. No complications. Ultrasound and fluoroscopic guidance was utilized.
--- NOTE | 2020-03-19 17:14 | NUR ---
CASE MANAGEMENT:REVIEW SI;UTI. DVT. E. COLI ESBL UTI. 98.6 93 19 144/78 97% ON RA IS;MEROPENEM IV Q12 HR IVF NS @ 50 ML/HR IMURAN PO QD NORVASC PO QD COREG PO BID PROTONIX PO QD HYDRALAZINE PO TID MED SURG STATUS DCP;PATIENT IS FROM HOME PLAN;DC HOME UPON ABX COMPLETION
--- NOTE | 2020-03-19 19:25 | NUR ---
HAND-OFF: Report given to KEN Gleason.
[2020-03-19 20:00] VITALS: BP 132/74
[2020-03-19] MEDS: Dyna-Hex 2% Top Sol 2oz TOPIC SCH (20:57)
--- NOTE | 2020-03-19 22:23 | Psych Consult Progress Note ---
Psychiatry Progress Note Psychiatry Progress Note Subjective the pt is doing well depressed and anxious Medications Current Medications Medications (Trade) Dose Ordered Sig/Toya Route PRN Reason Start Time Stop Time Status Last Admin Dose Admin Acetaminophen (Tylenol) 650 mg Q4H PRN ORAL Mild Pain (Pain Scale 1-3) 03/12/20 01:45 04/11/20 01:44 Amlodipine Besylate (Norvasc) 5 mg DAILY ORAL 03/12/20 09:00 04/11/20 08:59 03/19/20 09:34 Azathioprine (Imuran) 75 mg DAILY ORAL 03/13/20 09:00 06/10/20 06:29 03/19/20 09:33 Carvedilol (Coreg) 3.125 mg EVERY 12 HOURS ORAL 03/12/20 09:00 04/11/20 08:59 03/19/20 20:57 Chlorhexidine Gluconate (Carissa-Hex 2%) 1 applic DAILY@2000 TOPIC 03/17/20 20:00 06/15/20 19:59 03/19/20 20:57 Cyclosporine (Neoral) 100 mg Q12HR ORAL 03/12/20 09:00 06/10/20 08:59 03/19/20 20:58 Fludrocortisone Acetate (Florinef) 0.1 mg DAILY ORAL 03/12/20 09:00 04/11/20 08:59 03/19/20 09:33 Hydralazine HCl (Apresoline) 25 mg EVERY 8 HOURS ORAL 03/12/20 06:00 06/10/20 05:59 03/19/20 20:57 Meropenem 500 mg/ Sodium Chloride 55 ml @ 110 mls/hr Q12H IVPB 03/16/20 16:00 03/23/20 23:59 03/19/20 17:16 Mirtazapine (Remeron) 30 mg BEDTIME ORAL 03/17/20 21:00 06/15/20 20:59 03/19/20 20:58 Multivitamins Therapeutic (Therapeutic Multivitamin) 1 ea DAILY ORAL 03/12/20 09:00 04/11/20 08:59 03/19/20 09:34 Pantoprazole (Protonix) 40 mg DAILY ORAL 03/12/20 09:00 04/11/20 08:59 03/19/20 09:34 Rivaroxaban (Xarelto) 10 mg DAILY ORAL 03/12/20 09:00 06/10/20 08:59 03/19/20 09:32 Sodium Chloride 1,000 ml @ 50 mls/hr Q20H IV 03/16/20 11:55 04/15/20 11:54 03/16/20 12:14 Neurological/Psychiatric: Reports: anxiety, depressed, emotional problems Allergies: Coded Allergies: No Known Allergies (Verified , 05/29/09) Objective Data Height (Feet): 5 Height (Inches): 4.00 Weight (Pounds): 145 Appearance: no abnormalities noted Behavior Mannerisms: good eye contact Mental Status Exam - Affect: blunted Mental Status Exam - Mood: depressed Mental Status Exam - Thought P: goal-directed Mental Status Exam - Suicidal: not present Assessment/Plan Status: stable Assessment/Plan: Acute toxic encephalopathy, improved. Major depressive disorder. PLAN: 1. We will increase the Remeron to 30 mg at bedtime. 2. Provide the patient with reality orientation and supportive therapy. Syeda Price MD Mar 19, 2020 22:23
[2020-03-20] VITALS: BP 140/70
--- NOTE | 2020-03-20 02:45 | Progress Note ---
DATE: 03/19/2020 CARDIOLOGY PROGRESS NOTE SUBJECTIVE: The patient continues to require IV antimicrobials. Poor peripheral access has been an issue. Central venous access was obtained with a PICC line. The patient is more alert, still weak, and has no energy. Appetite is fair, but better. No chest pain or shortness of breath. 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 The pacemaker was interrogated last week and functioning appropriately. Renal function has normalized with hydration. SUBJECTIVE: VITAL SIGNS: Blood pressure 137/73, pulse 78, respirations 19, afebrile. LUNGS: Clear. CARDIAC: Regular. ABDOMEN: Soft. EXTREMITIES: No edema. Stumps without skin breakdown. LABORATORY DATA: Potassium 3.7, BUN 10, creatinine 1. IMPRESSION: 1. Slow progress. 2. Stabilizing cardiovascular and hemodynamics parameters. PLAN: 1. Plan of care in place. 2. Continue without change. Matthew Tinajero M.D. DR: ASHLEIGH JOB#: [id number] CC:
[2020-03-20] MEDS: Meropenem 500 MG in NS 55 ML IVPB SCH ×2 (03:33→17:07)
[2020-03-20 04:01] VITALS: BP 138/71
[2020-03-20] MEDS: HydrALAZINE 25mg tab ORAL SCH ×3 (05:57→20:38)
--- NOTE | 2020-03-20 07:34 | NUR ---
HAND-OFF: Report given to Shun Pickering RN.
[2020-03-20 08:00] VITALS: BP 135/76
[2020-03-20 08:27] LABS: ANION GAP 7 mmol/L (5-15); BLOOD UREA NITROGEN 10 mg/dL (7-18); CALCIUM 8.6 MG/DL (8.5-10.1); CARBON DIOXIDE 27 MMOL/L (21-32); CHLORIDE 108 MMOL/L (98-107); POTASSIUM 3.5 MMOL/L (3.5-5.1); SODIUM 142 MMOL/L (136-145)
[2020-03-20] MEDS: Multivitamin w/Minerals tab ORAL SCH (08:50)
[2020-03-20] MEDS: cycloSPORINE 100mg cap ORAL SCH ×2 (08:50→20:38)
[2020-03-20] MEDS: azaTHIOprine 50 MG TAB ORAL SCH (08:50)
[2020-03-20] MEDS: Xarelto 10mg tab ORAL SCH (08:50)
--- NOTE | 2020-03-20 10:58 | Infectious Diseases Prog Note ---
Assessment/Plan Assessment/Plan antibiotics : meropenem A 1. e.coli esbl UTI 2, hypertension 3. s/p renal transplant 4. renal failure improving 5. s/p right BKA P 1. continue meropenem 1 more day 2. will follow up cultures Subjective Constitutional: Denies: fever, chills Respiratory: Denies: shortness of breath, dry cough Gastrointestinal/Abdominal: Denies: nausea, vomiting, diarrhea Musculoskeletal: Reports: pain - decreased Allergies: Coded Allergies: No Known Allergies (Verified , 05/29/09) Objective Vital Signs Last 24 Hour Vital Signs Date Time Temp Pulse Resp B/P (MAP) Pulse Ox O2 Delivery O2 Flow Rate FiO2 03/20/20 09:00 Room Air 03/20/20 08:50 77 135/76 03/20/20 08:50 77 135/76 03/20/20 08:00 98.0 77 19 135/76 (95) 98 03/20/20 05:57 138/71 03/20/20 04:01 97.0 85 16 138/71 (93) 98 03/20/20 00:00 97.9 74 20 140/70 (93) 98 03/19/20 21:55 Room Air 03/19/20 20:57 132/74 03/19/20 20:57 82 132/74 03/19/20 20:00 98.2 82 18 132/74 (93) 96 03/19/20 13:09 137/73 03/19/20 12:00 97.7 78 19 137/73 (94) 98 Height (Feet): 5 Height (Inches): 4.00 Weight (Pounds): 145 Respiratory/Chest: lungs clear Cardiovascular: normal rate, regular rhythm, no gallop/murmur Abdomen: soft, non tender Extremities: no edema, other - right stump clean Laboratory Tests Test 03/20/20 07:40 Sodium Level 142 MMOL/L (136-145) Potassium Level 3.5 MMOL/L (3.5-5.1) Chloride Level 108 MMOL/L (98-107) H Carbon Dioxide Level 27 MMOL/L (21-32) Anion Gap 7 mmol/L (5-15) Blood Urea Nitrogen 10 mg/dL (7-18) Creatinine 1.0 MG/DL (0.55-1.30) Estimat Glomerular Filtration Rate > 60 mL/min (>60) Glucose Level 129 MG/DL (74-106) H Calcium Level 8.6 MG/DL (8.5-10.1) Current Medications Medications (Trade) Dose Ordered Sig/Toya Route PRN Reason Start Time Stop Time Status Last Admin Dose Admin Acetaminophen (Tylenol) 650 mg Q4H PRN ORAL Mild Pain (Pain Scale 1-3) 03/12/20 01:45 04/11/20 01:44 Amlodipine Besylate (Norvasc) 5 mg DAILY ORAL 03/12/20 09:00 04/11/20 08:59 03/20/20 08:50 Azathioprine (Imuran) 75 mg DAILY ORAL 03/13/20 09:00 06/10/20 06:29 03/20/20 08:50 Carvedilol (Coreg) 3.125 mg EVERY 12 HOURS ORAL 03/12/20 09:00 04/11/20 08:59 03/20/20 08:50 Chlorhexidine Gluconate ([place]is[place]-Hex 2%) 1 applic DAILY@2000 TOPIC 03/17/20 20:00 06/15/20 19:59 03/19/20 20:57 Cyclosporine (Neoral) 100 mg Q12HR ORAL 03/12/20 09:00 06/10/20 08:59 03/20/20 08:50 Fludrocortisone Acetate (Florinef) 0.1 mg DAILY ORAL 03/12/20 09:00 04/11/20 08:59 03/20/20 08:50 Hydralazine HCl (Apresoline) 25 mg EVERY 8 HOURS ORAL 03/12/20 06:00 06/10/20 05:59 03/20/20 05:57 Meropenem 500 mg/ Sodium Chloride 55 ml @ 110 mls/hr Q12H IVPB 03/16/20 16:00 03/23/20 23:59 03/20/20 03:33 Mirtazapine (Remeron) 30 mg BEDTIME ORAL 03/17/20 21:00 06/15/20 20:59 03/19/20 20:58 Multivitamins Therapeutic (Therapeutic Multivitamin) 1 ea DAILY ORAL 03/12/20 09:00 04/11/20 08:59 03/20/20 08:50 Pantoprazole (Protonix) 40 mg DAILY ORAL 03/12/20 09:00 04/11/20 08:59 03/20/20 08:50 Rivaroxaban (Xarelto) 10 mg DAILY ORAL 03/12/20 09:00 06/10/20 08:59 03/20/20 08:50 Sodium Chloride 1,000 ml @ 50 mls/hr Q20H IV 03/16/20 11:55 04/15/20 11:54 03/16/20 12:14 Nikki Bob MD Mar 20, 2020 10:58
--- NOTE | 2020-03-20 11:09 | General Progress Note ---
Assessment/Plan Problem List: (1) Abdominal pain ICD Codes: R10.9 - Abdominal pain SNOMED: 56023648 (2) Urinary tract infection (3) Colitis ICD Codes: K52.9 - Colitis SNOMED: 910809943 (4) Diarrhea ICD Codes: R19.7 - Diarrhea SNOMED: 79863193 (5) DVT (deep venous thrombosis) ICD Codes: I82.409 - Acute embolism and thrombosis of unspecified deep veins of unspecified lower extremity SNOMED: 176294249 Status: stable Assessment/Plan: iv abx per id follow up cultures ivf as needed monitor renal fxn pain rx avoid sedatives. psych appreciated rx called to [facility] all meds covered except transplant meds which cannot be billed until pt is discharged may need to bill thru pts home health per [facility] dc planning once iv abx completed tomorrow Subjective ROS Limited/Unobtainable: No Constitutional: Reports: malaise, weakness HEENT: Reports: no symptoms Cardiovascular: Reports: no symptoms Respiratory: Reports: no symptoms Gastrointestinal/Abdominal: Reports: no symptoms Genitourinary: Reports: no symptoms Neurologic/Psychiatric: Reports: no symptoms Endocrine: Reports: no symptoms Hematologic/Lymphatic: Reports: no symptoms Allergies: Coded Allergies: No Known Allergies (Verified , 05/29/09) All Systems: reviewed and negative except above Subjective no new complaints. less depressed/anxious. remains on iv abx. pain controlled. no bleeding. no cp/sob. ID noted. 1 more day iv abx needed. Objective Last 24 Hour Vital Signs Date Time Temp Pulse Resp B/P (MAP) Pulse Ox O2 Delivery O2 Flow Rate FiO2 03/20/20 09:00 Room Air 03/20/20 08:50 77 135/76 03/20/20 08:50 77 135/76 03/20/20 08:00 98.0 77 19 135/76 (95) 98 03/20/20 05:57 138/71 03/20/20 04:01 97.0 85 16 138/71 (93) 98 03/20/20 00:00 97.9 74 20 140/70 (93) 98 03/19/20 21:55 Room Air 03/19/20 20:57 132/74 03/19/20 20:57 82 132/74 03/19/20 20:00 98.2 82 18 132/74 (93) 96 03/19/20 13:09 137/73 03/19/20 12:00 97.7 78 19 137/73 (94) 98 Intake and Output 03/19/20 03/20/20 19:00 07:00 Intake Total 410 ml 630 ml Balance 410 ml 630 ml Intake Oral 360 ml IV Total 50 ml 630 ml # Voids 4 2 # Bowel Movements 1 Laboratory Tests 03/20/20 07:40: Sodium Level 142, Potassium Level 3.5, Chloride Level 108H, Carbon Dioxide Level 27, Anion Gap 7, Blood Urea Nitrogen 10, Creatinine 1.0, Estimat Glomerular Filtration Rate > 60, Glucose Level 129H, Calcium Level 8.6 Height (Feet): 5 Height (Inches): 4.00 Weight (Pounds): 145 Objective General Appearance: WD/WN, lethargic EENT: PERRL/EOMI, normal ENT inspection. left eye deviated to the left Neck: non-tender, normal alignment Cardiovascular: normal peripheral pulses, normal rate Respiratory/Chest: chest wall non-tender, lungs clear, normal breath sounds Abdomen: normal bowel sounds, non tender, soft, no organomegaly Extremities: normal range of motion, non-tender Edema: no edema noted Arm (L), no edema noted Arm (R) Neurologic: lethargic Skin: normal pigmentation Lymphatic: normal anterior cervical (L), normal anterior cervical (R) John Red MD Mar 20, 2020 11:09
--- NOTE | 2020-03-20 11:56 | Nephrology Progress Note ---
Assessment/Plan Problem List: (1) Urinary tract infection (2) Pyelonephritis (3) Diastolic CHF with preserved left ventricular function, NYHA class 2 (4) Incontinence of urine in female (5) Status post kidney transplant Plan meropenam given as prior esbl, needs ID consult to continue, usual transplant meds creatinine higher 2.0 hydrate,improved 1.3 1.2 check bladder scan 03/14 400 + and morin placed, US no hydro, dc morin, feels weak and chronic abd pain, concern for colitis, no BM try senna depreseed Subjective Constitutional: Reports: weakness HEENT: Reports: no symptoms Genitourinary: Reports: incontinence Neurologic/Psychiatric: Reports: no symptoms Objective Objective Last 24 Hour Vital Signs Date Time Temp Pulse Resp B/P (MAP) Pulse Ox O2 Delivery O2 Flow Rate FiO2 03/20/20 09:00 Room Air 03/20/20 08:50 77 135/76 03/20/20 08:50 77 135/76 03/20/20 08:00 98.0 77 19 135/76 (95) 98 03/20/20 05:57 138/71 03/20/20 04:01 97.0 85 16 138/71 (93) 98 03/20/20 00:00 97.9 74 20 140/70 (93) 98 03/19/20 21:55 Room Air 03/19/20 20:57 132/74 03/19/20 20:57 82 132/74 03/19/20 20:00 98.2 82 18 132/74 (93) 96 03/19/20 13:09 137/73 03/19/20 12:00 97.7 78 19 137/73 (94) 98 Intake and Output 03/19/20 03/20/20 19:00 07:00 Intake Total 410 ml 630 ml Balance 410 ml 630 ml Intake Oral 360 ml IV Total 50 ml 630 ml # Voids 4 2 # Bowel Movements 1 Laboratory Tests 03/20/20 07:40: Sodium Level 142, Potassium Level 3.5, Chloride Level 108H, Carbon Dioxide Level 27, Anion Gap 7, Blood Urea Nitrogen 10, Creatinine 1.0, Estimat Glomerular Filtration Rate > 60, Glucose Level 129H, Calcium Level 8.6 Height (Feet): 5 Height (Inches): 4.00 Weight (Pounds): 145 General Appearance: no apparent distress, alert EENT: normal ENT inspection Neck: normal alignment Cardiovascular: normal rate Respiratory/Chest: lungs clear Abdomen: soft, other - mild diffuse tender Extremities: no edema Neurologic: abnormal ergonomics engineer II-XII Kade Cochran MD Mar 20, 2020 11:56
[2020-03-20 12:00] VITALS: BP 150/55
[2020-03-20] MEDS ORDERED: Sennosides 8.6mg tab ORAL SCH (12:00)
--- NOTE | 2020-03-20 12:17 | NUR ---
RD ASSESSMENT & RECOMMENDATIONS SEE CARE ACTIVITY FOR COMPLETE ASSESSMENT DAILY ESTIMATED NEEDS: Needs based on wound / 59kg abw 25-30 kcals/kg 0841-3123 total kcals 1.25-1.5 g protein/kg 74-89 g total protein 25-30 mL/kg 6319-3903 total fluid mLs NUTRITION DIAGNOSIS: Increased kcal and pro needs r/t wound healing as evidenced by admitted w/ wounds including indurated and purple area at sacrococcygeal area that is tender when minimally palpated, surrounding non-blanching erythema at sacrum, R and L gluteus. CURRENT DIET:Regular PO DIET RECOMMENDATIONS: Liberalized REGULAR w/ poor PO/ texture as tolerated ADDITIONAL RECOMMENDATIONS: * Ensure Enlive TID w/ meals * Monitor PO intake: variable and poor at thist bipin * Wound Care: continue MVI Add Vit C 250mg QD * Snacks in b/w meals as tolerated . .
--- NOTE | 2020-03-20 15:26 | NUR ---
CASE MANAGEMENT:REVIEW SI;UTI. DVT. E. COLI ESBL UTI. 98.2 78 19 150/55 97% ON RA IS;MEROPENEM IV Q12 IVF NS @ 50 ML/HR IMURAN PO NORVASC PO COREG PO FLORINEF PO PROTONIX PO MED SURG STATUS DCP;PATIENT IS FROM HOME
--- NOTE | 2020-03-20 15:30 | Surgery Progress Note ---
Surgery Progress Note Subjective Symptoms: improved, tolerating diet, voiding well, passing flatus, BM, pain decreased Objective Last 24 Hour Vital Signs Date Time Temp Pulse Resp B/P (MAP) Pulse Ox O2 Delivery O2 Flow Rate FiO2 03/20/20 13:52 150/55 03/20/20 12:00 98.2 78 19 150/55 (86) 97 03/20/20 09:00 Room Air 03/20/20 08:50 77 135/76 03/20/20 08:50 77 135/76 03/20/20 08:00 98.0 77 19 135/76 (95) 98 03/20/20 05:57 138/71 03/20/20 04:01 97.0 85 16 138/71 (93) 98 03/20/20 00:00 97.9 74 20 140/70 (93) 98 03/19/20 21:55 Room Air 03/19/20 20:57 132/74 03/19/20 20:57 82 132/74 03/19/20 20:00 98.2 82 18 132/74 (93) 96 I&O Intake and Output 03/19/20 03/20/20 19:00 07:00 Intake Total 410 ml 630 ml Balance 410 ml 630 ml Intake Oral 360 ml IV Total 50 ml 630 ml # Voids 4 2 # Bowel Movements 1 Dressing: dry Wound: clean Cardiovascular: RSR Respiratory: clear Abdomen: soft, non-tender, present bowel sounds Extremities: no edema, no tenderness, no cyanosis Laboratory Tests Test 03/20/20 07:40 Sodium Level 142 MMOL/L (136-145) Potassium Level 3.5 MMOL/L (3.5-5.1) Chloride Level 108 MMOL/L (98-107) H Carbon Dioxide Level 27 MMOL/L (21-32) Anion Gap 7 mmol/L (5-15) Blood Urea Nitrogen 10 mg/dL (7-18) Creatinine 1.0 MG/DL (0.55-1.30) Estimat Glomerular Filtration Rate > 60 mL/min (>60) Glucose Level 129 MG/DL (74-106) H Calcium Level 8.6 MG/DL (8.5-10.1) Plan Problems: (1) Abdominal pain Assessment & Plan: 80F with abdominal pain, decreased appetite, abnormal labs. Chest x-ray noted. On examination she has an abnormal mass palpated in the right lower quadrant around the prior incision. Unsure if scar tissue versus cyst versus infectious process. She is definitely tender in uncomfortable around this is mobile and difficult to palpating complete given discomfort. pancreatitis CT abdomen pelvis noted Fluid-filled colon, could indicate a diarrheal illness. No evidence of small bowel obstruction or other GI tract pathology. Mild bladder wall thickening, could indicate cystitis Right renal transplant kidney again demonstrated. Previously demonstrated transplant kidney hydronephrosis is not evident. Slight infiltration of the fat superior to the upper pole of the right kidney, of uncertain significance but could indicate a degree of perinephric inflammation Retrococcygeal and retrosacral decubitus changes. Evidence of decubitus changes of the left lower buttock region as well. Correlate with clinical findings Postsurgical changes, as described, including prior cholecystectomy, evidence of prior hysterectomy, left hip surgery, bilateral groin dialysis graft placement, pacemaker Small left lower lobe bulla Other findings as noted, including degenerative spondylosis, stable subcutaneous right upper pelvic lesion IV fluids IV antibiotics A.m. labs We will follow with recommendations thank you for let me participate in patient' s care d/frandy cardoza tomorrow after completion of abx Thomas Franklin Mar 20, 2020 15:30
[2020-03-20 16:00] VITALS: BP 144/70
--- NOTE | 2020-03-20 19:12 | NUR ---
HAND-OFF: Report given to Yohan.
--- NOTE | 2020-03-20 20:00 | NUR ---
NURSE NOTES: Received patient awake, alert, verbal, comfortably resting in bed without complaints.
[2020-03-20 20:12] VITALS: BP 150/75
--- NOTE | 2020-03-20 20:19 | Psych Consult Progress Note ---
Psychiatry Progress Note Psychiatry Progress Note Subjective the pt is depressed and weak. appetite improved. mild anxiety. sleep is adequate. Medications Current Medications Medications (Trade) Dose Ordered Sig/Toya Route PRN Reason Start Time Stop Time Status Last Admin Dose Admin Acetaminophen (Tylenol) 650 mg Q4H PRN ORAL Mild Pain (Pain Scale 1-3) 03/12/20 01:45 04/11/20 01:44 Amlodipine Besylate (Norvasc) 5 mg DAILY ORAL 03/12/20 09:00 04/11/20 08:59 03/20/20 08:50 Azathioprine (Imuran) 75 mg DAILY ORAL 03/13/20 09:00 06/10/20 06:29 03/20/20 08:50 Carvedilol (Coreg) 3.125 mg EVERY 12 HOURS ORAL 03/12/20 09:00 04/11/20 08:59 03/20/20 08:50 Chlorhexidine Gluconate (Carissa-Hex 2%) 1 applic DAILY@2000 TOPIC 03/17/20 20:00 06/15/20 19:59 03/19/20 20:57 Cyclosporine (Neoral) 100 mg Q12HR ORAL 03/12/20 09:00 06/10/20 08:59 03/20/20 08:50 Fludrocortisone Acetate (Florinef) 0.1 mg DAILY ORAL 03/12/20 09:00 04/11/20 08:59 03/20/20 08:50 Hydralazine HCl (Apresoline) 25 mg EVERY 8 HOURS ORAL 03/12/20 06:00 06/10/20 05:59 03/20/20 13:52 Meropenem 500 mg/ Sodium Chloride 55 ml @ 110 mls/hr Q12H IVPB 03/16/20 16:00 03/23/20 23:59 03/20/20 17:07 Mirtazapine (Remeron) 30 mg BEDTIME ORAL 03/17/20 21:00 06/15/20 20:59 03/19/20 20:58 Multivitamins Therapeutic (Therapeutic Multivitamin) 1 ea DAILY ORAL 03/12/20 09:00 04/11/20 08:59 03/20/20 08:50 Pantoprazole (Protonix) 40 mg DAILY ORAL 03/12/20 09:00 04/11/20 08:59 03/20/20 08:50 Rivaroxaban (Xarelto) 10 mg DAILY ORAL 03/12/20 09:00 06/10/20 08:59 03/20/20 08:50 Sodium Chloride 1,000 ml @ 50 mls/hr Q20H IV 03/16/20 11:55 04/15/20 11:54 03/16/20 12:14 Allergies: Coded Allergies: No Known Allergies (Verified , 05/29/09) Objective Data Height (Feet): 5 Height (Inches): 4.00 Weight (Pounds): 145 General Appearance: no apparent distress, alert, thin, alert oriented x3 Appearance: no abnormalities noted Behavior Mannerisms: good eye contact Mental Status Exam - Affect: constricted Mental Status Exam - Mood: depressed, anxious Speech: clear Mental Status Exam - Thought P: goal-directed Mental Status Exam - Suicidal: not present Assessment/Plan Status: stable Assessment/Plan: Acute toxic encephalopathy, improved. Major depressive disorder. PLAN: 1. increase the Remeron to 45 mg at bedtime. 2. Provide the patient with reality orientation and supportive therapy. Syeda Price MD Mar 20, 2020 20:19
[2020-03-20] MEDS: Dyna-Hex 2% Top Sol 2oz TOPIC SCH (20:38)
[2020-03-21 00:08] VITALS: BP 143/80
[2020-03-21] MEDS: Meropenem 500 MG in NS 55 ML IVPB SCH (03:59)
[2020-03-21 04:00] VITALS: BP 152/68
--- NOTE | 2020-03-21 05:15 | Progress Note ---
DATE: 03/20/2020 CARDIOLOGY PROGRESS NOTE SUBJECTIVE: Feeling better. Appetite improved. More interactive. PHYSICAL EXAMINATION: VITAL SIGNS: Blood pressure 135/76, heart rate 77, respirations 19. LUNGS: Clear. CARDIAC: Regular. No new murmur. ABDOMEN: Soft. EXTREMITIES: No edema. Stumps clean and dry. LABORATORY DATA: White count 4.2, hemoglobin 10.5. Potassium 3.5, BUN 10, creatinine 1. IMPRESSION: 1. Sepsis. 2. Complicated urinary tract infection. 3. Pacemaker. 4. DVT, on anticoagulation. 5. Hypertensive heart disease. 6. Peripheral artery disease with amputation. 7. Insulin-requiring diabetes with complications. PLAN: 1. IV antimicrobials. 2. Skin care. 3. Maintain current cardiovascular regimen. 4. Pacemaker was already interrogated. 5. No additional cardiovascular therapy is presently planned. Matthew Tinajero M.D. DR: ANDREI JOB#: [id number] CC:
[2020-03-21] MEDS: HydrALAZINE 25mg tab ORAL SCH ×2 (06:04→13:11)
[2020-03-21 06:57] LABS: ANION GAP 8 mmol/L (5-15); BLOOD UREA NITROGEN 9 mg/dL (7-18); CALCIUM 8.5 MG/DL (8.5-10.1); CARBON DIOXIDE 26 MMOL/L (21-32); CHLORIDE 111 MMOL/L (98-107); CREATININE 1.1 MG/DL (0.55-1.30); SODIUM 145 MMOL/L (136-145)
--- NOTE | 2020-03-21 07:07 | NUR ---
HAND-OFF: Report given to Aaliyah Vazquez RN.
--- NOTE | 2020-03-21 07:42 | NUR ---
NURSE NOTES: Patient awake, alert x3; on room air, no sing of distress and shortness of breath; no sing of chest pain; Right Upper Mid-Line in place, running NS@50cc, dressing dry and intact; dressing dry and intact; side rails up x2, breaks engaged, bed at lowest position, bed alarm on; call light within reach; will keep monitoring.
[2020-03-21 08:00] VITALS: BP 146/70
--- NOTE | 2020-03-21 08:05 | General Progress Note ---
Assessment/Plan Problem List: (1) Abdominal pain ICD Codes: R10.9 - Abdominal pain SNOMED: 27471399 (2) Urinary tract infection (3) Colitis ICD Codes: K52.9 - Colitis SNOMED: 043065711 (4) Diarrhea ICD Codes: R19.7 - Diarrhea SNOMED: 47591567 (5) DVT (deep venous thrombosis) ICD Codes: I82.409 - Acute embolism and thrombosis of unspecified deep veins of unspecified lower extremity SNOMED: 407907434 Status: stable Assessment/Plan: iv abx per id follow up cultures ivf as needed monitor renal fxn pain rx avoid sedatives. psych appreciated rx called to [facility] all meds covered except transplant meds which cannot be billed until pt is discharged may need to bill thru pts home health per [facility] dc planning once iv abx completed tomorrow Subjective ROS Limited/Unobtainable: No Constitutional: Reports: malaise, weakness HEENT: Reports: no symptoms Cardiovascular: Reports: no symptoms Respiratory: Reports: no symptoms Gastrointestinal/Abdominal: Reports: no symptoms Genitourinary: Reports: no symptoms Neurologic/Psychiatric: Reports: no symptoms Endocrine: Reports: no symptoms Hematologic/Lymphatic: Reports: no symptoms Allergies: Coded Allergies: No Known Allergies (Verified , 05/29/09) All Systems: reviewed and negative except above Subjective no new complaints. less depressed/anxious. remains on iv abx. pain controlled. no bleeding. no cp/sob. ID noted. last day iv abx today Objective Last 24 Hour Vital Signs Date Time Temp Pulse Resp B/P (MAP) Pulse Ox O2 Delivery O2 Flow Rate FiO2 03/21/20 06:04 152/68 03/21/20 04:00 97.4 84 19 152/68 (96) 97 03/21/20 00:08 98.2 73 20 143/80 (101) 95 03/20/20 20:38 150/75 03/20/20 20:38 80 150/75 03/20/20 20:22 Room Air 03/20/20 20:12 97.9 80 20 150/75 (100) 98 03/20/20 16:00 97.7 81 18 144/70 (94) 99 03/20/20 13:52 150/55 03/20/20 12:00 98.2 78 19 150/55 (86) 97 03/20/20 09:00 Room Air 03/20/20 08:50 77 135/76 03/20/20 08:50 77 135/76 Intake and Output 03/20/20 03/21/20 19:00 07:00 Intake Total 660 ml 505 ml Balance 660 ml 505 ml Intake Oral 360 ml IV Total 300 ml 505 ml # Voids 2 1 # Bowel Movements 1 1 Laboratory Tests 03/21/20 06:11: Sodium Level 145, Potassium Level 4.0, Chloride Level 111H, Carbon Dioxide Level 26, Anion Gap 8, Blood Urea Nitrogen 9, Creatinine 1.1, Estimat Glomerular Filtration Rate 57.7, Glucose Level 100, Calcium Level 8.5 Height (Feet): 5 Height (Inches): 4.00 Weight (Pounds): 148 Objective General Appearance: WD/WN, lethargic EENT: PERRL/EOMI, normal ENT inspection. left eye deviated to the left Neck: non-tender, normal alignment Cardiovascular: normal peripheral pulses, normal rate Respiratory/Chest: chest wall non-tender, lungs clear, normal breath sounds Abdomen: normal bowel sounds, non tender, soft, no organomegaly Extremities: normal range of motion, non-tender Edema: no edema noted Arm (L), no edema noted Arm (R) Neurologic: lethargic Skin: normal pigmentation Lymphatic: normal anterior cervical (L), normal anterior cervical (R) John Red MD Mar 21, 2020 08:05
[2020-03-21] MEDS: Xarelto 10mg tab ORAL SCH (09:27)
[2020-03-21] MEDS: azaTHIOprine 50 MG TAB ORAL SCH (09:27)
[2020-03-21] MEDS: cycloSPORINE 100mg cap ORAL SCH (09:27)
[2020-03-21] MEDS: Multivitamin w/Minerals tab ORAL SCH (09:27)
--- NOTE | 2020-03-21 10:51 | NUR ---
CHARGE NURSE NOTE: Spoke with (ID), she cleared patient, pt does not need antibiotics.
--- NOTE | 2020-03-21 10:57 | Infectious Diseases Prog Note ---
Assessment/Plan Assessment/Plan antibiotics : meropenem A 1. e.coli esbl UTI 2, hypertension 3. s/p renal transplant 4. renal failure improving 5. s/p right BKA P 1. d/c meropenem 2. observe off antibiotics Subjective Constitutional: Denies: fever, chills Respiratory: Denies: shortness of breath, dry cough Gastrointestinal/Abdominal: Denies: nausea, vomiting, diarrhea Musculoskeletal: Reports: pain Allergies: Coded Allergies: No Known Allergies (Verified , 05/29/09) Objective Vital Signs Last 24 Hour Vital Signs Date Time Temp Pulse Resp B/P (MAP) Pulse Ox O2 Delivery O2 Flow Rate FiO2 03/21/20 09:27 87 146/70 03/21/20 09:26 87 146/70 03/21/20 09:00 Room Air 03/21/20 08:00 97.0 87 20 146/70 (95) 98 03/21/20 06:04 152/68 03/21/20 04:00 97.4 84 19 152/68 (96) 97 03/21/20 00:08 98.2 73 20 143/80 (101) 95 03/20/20 20:38 150/75 03/20/20 20:38 80 150/75 03/20/20 20:22 Room Air 03/20/20 20:12 97.9 80 20 150/75 (100) 98 03/20/20 16:00 97.7 81 18 144/70 (94) 99 03/20/20 13:52 150/55 03/20/20 12:00 98.2 78 19 150/55 (86) 97 Height (Feet): 5 Height (Inches): 4.00 Weight (Pounds): 148 Respiratory/Chest: lungs clear Cardiovascular: normal rate, regular rhythm, no gallop/murmur Abdomen: soft, non tender Extremities: no edema, other - right stump clean Laboratory Tests Test 03/21/20 06:11 Sodium Level 145 MMOL/L (136-145) Potassium Level 4.0 MMOL/L (3.5-5.1) Chloride Level 111 MMOL/L (98-107) H Carbon Dioxide Level 26 MMOL/L (21-32) Anion Gap 8 mmol/L (5-15) Blood Urea Nitrogen 9 mg/dL (7-18) Creatinine 1.1 MG/DL (0.55-1.30) Estimat Glomerular Filtration Rate 57.7 mL/min (>60) Glucose Level 100 MG/DL (74-106) Calcium Level 8.5 MG/DL (8.5-10.1) Current Medications Medications (Trade) Dose Ordered Sig/Toya Route PRN Reason Start Time Stop Time Status Last Admin Dose Admin Acetaminophen (Tylenol) 650 mg Q4H PRN ORAL Mild Pain (Pain Scale 1-3) 03/12/20 01:45 04/11/20 01:44 Amlodipine Besylate (Norvasc) 5 mg DAILY ORAL 03/12/20 09:00 04/11/20 08:59 03/21/20 09:27 Azathioprine (Imuran) 75 mg DAILY ORAL 03/13/20 09:00 06/10/20 06:29 03/21/20 09:27 Carvedilol (Coreg) 3.125 mg EVERY 12 HOURS ORAL 03/12/20 09:00 04/11/20 08:59 03/21/20 09:26 Chlorhexidine Gluconate (Carissa-Hex 2%) 1 applic DAILY@2000 TOPIC 03/17/20 20:00 06/15/20 19:59 03/20/20 20:38 Cyclosporine (Neoral) 100 mg Q12HR ORAL 03/12/20 09:00 06/10/20 08:59 03/21/20 09:27 Fludrocortisone Acetate (Florinef) 0.1 mg DAILY ORAL 03/12/20 09:00 04/11/20 08:59 03/21/20 09:27 Hydralazine HCl (Apresoline) 25 mg EVERY 8 HOURS ORAL 03/12/20 06:00 06/10/20 05:59 03/21/20 06:04 Meropenem 500 mg/ Sodium Chloride 55 ml @ 110 mls/hr Q12H IVPB 03/16/20 16:00 03/23/20 23:59 03/21/20 03:59 Mirtazapine (Remeron) 45 mg BEDTIME ORAL 03/20/20 21:00 06/18/20 20:59 03/20/20 20:38 Multivitamins Therapeutic (Therapeutic Multivitamin) 1 ea DAILY ORAL 03/12/20 09:00 04/11/20 08:59 03/21/20 09:27 Pantoprazole (Protonix) 40 mg DAILY ORAL 03/12/20 09:00 04/11/20 08:59 03/21/20 09:26 Rivaroxaban (Xarelto) 10 mg DAILY ORAL 03/12/20 09:00 06/10/20 08:59 03/21/20 09:27 Sodium Chloride 1,000 ml @ 50 mls/hr Q20H IV 03/16/20 11:55 04/15/20 11:54 03/20/20 21:08 Nikki Bob MD Mar 21, 2020 10:57
--- NOTE | 2020-03-21 11:06 | NUR ---
NURSE NOTES: There is a discharge order for this patient; I called to patient's next of kin, Liya Vazquez, to inform her the plan to discharge this patient; Ms George said, will pick this patient after three;
[2020-03-21 12:00] VITALS: BP 140/66
[2020-03-21 13:11] VITALS: BP 140/66
--- NOTE | 2020-03-21 13:41 | Surgery Progress Note ---
Surgery Progress Note Subjective Symptoms: improved, tolerating diet, passing flatus Objective Last 24 Hour Vital Signs Date Time Temp Pulse Resp B/P (MAP) Pulse Ox O2 Delivery O2 Flow Rate FiO2 03/21/20 13:11 140/66 03/21/20 12:00 97.4 82 20 140/66 (90) 98 03/21/20 09:27 87 146/70 03/21/20 09:26 87 146/70 03/21/20 09:00 Room Air 03/21/20 08:00 97.0 87 20 146/70 (95) 98 03/21/20 06:04 152/68 03/21/20 04:00 97.4 84 19 152/68 (96) 97 03/21/20 00:08 98.2 73 20 143/80 (101) 95 03/20/20 20:38 150/75 03/20/20 20:38 80 150/75 03/20/20 20:22 Room Air 03/20/20 20:12 97.9 80 20 150/75 (100) 98 03/20/20 16:00 97.7 81 18 144/70 (94) 99 03/20/20 13:52 150/55 I&O Intake and Output 03/20/20 03/21/20 19:00 07:00 Intake Total 660 ml 505 ml Balance 660 ml 505 ml Intake Oral 360 ml IV Total 300 ml 505 ml # Voids 2 1 # Bowel Movements 1 1 Dressing: dry Wound: clean Cardiovascular: RSR Respiratory: clear Abdomen: soft, non-tender, present bowel sounds Extremities: no edema, no tenderness, no cyanosis Laboratory Tests Test 03/21/20 06:11 Sodium Level 145 MMOL/L (136-145) Potassium Level 4.0 MMOL/L (3.5-5.1) Chloride Level 111 MMOL/L (98-107) H Carbon Dioxide Level 26 MMOL/L (21-32) Anion Gap 8 mmol/L (5-15) Blood Urea Nitrogen 9 mg/dL (7-18) Creatinine 1.1 MG/DL (0.55-1.30) Estimat Glomerular Filtration Rate 57.7 mL/min (>60) Glucose Level 100 MG/DL (74-106) Calcium Level 8.5 MG/DL (8.5-10.1) Plan Problems: (1) Abdominal pain Assessment & Plan: 80F with abdominal pain, decreased appetite, abnormal labs. Chest x-ray noted. On examination she has an abnormal mass palpated in the right lower quadrant around the prior incision. Unsure if scar tissue versus cyst versus infectious process. She is definitely tender in uncomfortable around this is mobile and difficult to palpating complete given discomfort. pancreatitis CT abdomen pelvis noted Fluid-filled colon, could indicate a diarrheal illness. No evidence of small bowel obstruction or other GI tract pathology. Mild bladder wall thickening, could indicate cystitis Right renal transplant kidney again demonstrated. Previously demonstrated transplant kidney hydronephrosis is not evident. Slight infiltration of the fat superior to the upper pole of the right kidney, of uncertain significance but could indicate a degree of perinephric inflammation Retrococcygeal and retrosacral decubitus changes. Evidence of decubitus changes of the left lower buttock region as well. Correlate with clinical findings Postsurgical changes, as described, including prior cholecystectomy, evidence of prior hysterectomy, left hip surgery, bilateral groin dialysis graft placement, pacemaker Small left lower lobe bulla Other findings as noted, including degenerative spondylosis, stable subcutaneous right upper pelvic lesion IV fluids IV antibiotics A.m. labs We will follow with recommendations thank you for let me participate in patient' s care d/frandy cardoza tomorrow after completion of abx Thomas Franklin Mar 21, 2020 13:41
--- NOTE | 2020-03-21 14:00 | NUR ---
NURSE NOTES: Patient discharge to home; left the floor accompaned by primary nurse, nursing assistance Meme and her grand daughter Liya; patient's mid line removed upon discharge; wound care provided and pictures uploaded on patient's file; discharge medication given to patient; belonging lists check off, primary nurse and patient singed it; patient is stable upon discharge; patient left the floor vie wheel chair;
--- NOTE | 2020-03-21 23:05 | Psych Consult Progress Note ---
Psychiatry Progress Note Psychiatry Progress Note Neurological/Psychiatric: Reports: anxiety, depressed, emotional problems Allergies: Coded Allergies: No Known Allergies (Verified , 05/29/09) Objective Data Height (Feet): 5 Height (Inches): 4.00 Weight (Pounds): 148 General Appearance: WD/WN, no apparent distress, alert, thin, alert oriented x3 Additional Comments: oriented times, self, place, situation. She was able to answer questions. Mood is depressed. Affect is constricted. Congruent mood. Thought process is concrete. Thought content, no suicidal or homicidal ideation. Cognition is impaired. Insight and judgment are impaired. Assessment/Plan Status: stable Assessment/Plan: Acute toxic encephalopathy, improved. Major depressive disorder. PLAN: 1. increase the Remeron to 45 mg at bedtime. 2. Provide the patient with reality orientation and supportive therapy. Syeda Price MD Mar 21, 2020 23:05
--- NOTE | 2020-03-22 05:45 | Progress Note ---
DATE: 03/21/2020 CARDIOLOGY PROGRESS NOTE SUBJECTIVE: Patient is alert. Tolerating diet. No distress and minimal pain. Continues IV antimicrobials. PHYSICAL EXAMINATION: VITAL SIGNS: Blood pressure 146/70, heart rate 87, respirations 20. LUNGS: Bilateral breath sounds. No wheezing. CARDIAC: Regular rhythm rate. Normal S1, S2. ABDOMEN: Soft. EXTREMITIES: No edema. Stumps dry. IMPRESSION: 1. DVT, on anticoagulation. 2. Polymicrobial-resistant urinary tract infection. On IV therapy. 3. Hypertensive heart disease with controlled blood pressure. 4. Permanent pacemaker with stable function. 5. Peripheral artery disease with adequate perfusion of stumps. PLAN: 1. Complete IV antimicrobials. 2. Continue full anticoagulation. 3. Maintain current antihypertensives. 4. Skin care. 5. Outpatient monitoring of electrolytes and renal function. 6. Pacemaker interrogation as an outpatient in 6 months. Matthew Tinajero M.D. DR: ANDREI JOB#: [id number] CC:
--- NOTE | 2020-03-22 14:34 | Discharge Summary ---
Discharge Summary Discharge Summary _ DATE OF ADMISSION: 03/12/2020 DATE OF DISCHARGE: 03/21/2020 DISCHARGED BY: Dr. Red REASON FOR ADMISSION: 80 year old female with past medical history of hypertension, R BKA, DVT, kidney transplant, presented with complaints of abdominal pain, dysuria , frequency and urgency. Patient also reported that she developed urinary incontinence. Symptoms started about a week prior to admission. Upon evaluation in the ER she was diagnosed with complicated UTI, given history of prior multidrug-resistant urinary tract and admitted for IV antibiotics. CONSULTANTS: industrial maintenance tech Dr. Tinajero ID specialist Dr. Bob travel attendants Dr. Cochran surgery Dr. Franklin psychiatrist [place] [facility] [employer] [facility]RSE: Patient admitted to medical surgical floor. Antibiotic provided as per ID specialist recommendation. Urine culture revealed E. coli ESBL. Patient remains afebrile , no leukocytosis. Patient completed treatment with meropenem while in the hospital. CT of the abdomen and pelvis revealed fluid-filled colon, possibly indicative of diarrheal illness. No evidence of small bowel obstruction or other GI tract pathology. Mild bladder wall thickening, possibly indicative of cystitis. Right renal transplant kidney. Previously demonstrated transplant kidney hydronephrosis was not any more evident. Slight infiltration of the fat superior to the upper pole of the right kidney of uncertain significance , but could indicate a degree of perinephric inflammation. Dessert Cup Machine Feeder followed. Renal parameters and electrolytes were closely monitored, electrolytes corrected as needed. Acute kidney injury was most likely due to dehydration. Patient also has a history of kidney transplant. Creatinine initially started to trend up with the highest being 2 . IV fluids provided. creatinine improved and prior to discharge 1.1. Nephrotoxics were avoided. Bladder scan 03/14 showed high urine residual > 400 cc , and subsequently Gonzalez catheter was placed Renal ultrasound demonstrated unremarkable transplant kidney. Patent vasculature. No hydronephrosis . Subsequently Gonzalez was discontinued. Imuran continued. Surgeon seen and evaluated the patient. No need for surgical intervention. Patient complained of constipation and started on bowel regimen. Pain management was addressed as needed. GI prophylaxis provided. Pacemaker interrogated and showed normal functioning. Blood pressure was managed with calcium channel rosina and beta-rosina Full anticoagulation with Xarelto continued. Psychiatric medication regimen was optimized as per psychiatrist. Patient was provided with reality orientation and supportive therapy. Patient clinically stabilized and was ready for discharge home FINAL DIAGNOSES: Sepsis E. coli ESBL UTI/pyelonephritis Hypertension Acute kidney injury in setting of renal transplant Acute metabolic and toxic encephalopathy Peripheral arterial disease , s/p amputation R BKA Diastolic congestive heart failure with preserved ejection fraction NYHA class II Pacemaker Hypertensive heart disease History of DVT Dehydration and hypovolemia Urinary incontinence DISCHARGE MEDICATIONS: See Medication Reconciliation list. DISCHARGE INSTRUCTIONS: Patient was discharged home. Follow-up with primary care provider in 1 week. I have been assigned to dictate discharge summary for this account. I was not involved in the patient's management. Amy Morataya NP Mar 22, 2020 14:34
--- NOTE | 2020-04-03 14:44 | Coder Physician Query ---
Clarification is required for compliance, coding accuracy, and to reflect severity of illness for this patient Dear Dr. John Red Date:04/03/20 [employer] Worker/CDS Name: kerline lynne Exercise your independent professional judgment when responding to query. Question asked do not imply a particular answer is desired/expected Sepsis query - ASSESSMENT: This is an 80-year-old female with a history of kidney transplant, hypertension, and history of DVT, admitted with urinary tract infection. WBC 03/11 - 6.6, 03/13 - 6.2, 03/14 - 6.1, 03/15 - 4.2 Antibiotic provided as per ID specialist recommendation. Urine culture revealed E. coli ESBL. Patient remains afebrile , no leukocytosis. FINAL DIAGNOSES: Sepsis E. coli ESBL UTI/pyelonephritis SEPSIS was only mentioned in the Discharge summary. Was sepsis a confirmed DX: ( ) Yes ( ) No (x ) Ruled out (If yes confirmed DX) Was SEPSIS present on admission? [] Yes [] No [] Clinically undeterminable Physician signature Date Please also document in your Progress Notes and/or Discharge Summary and indicate if the condition was present on admission. CATALINO
== END 2020-03-21 14:08 | disposition home or self-care (01) | DRG 682 ==
LOC: EMR 21:56 → 4E 03-12 01:56 → EDBEDREQ 03-12 02:52
PROC: 05H533Z Insertion of Infusion Device into Right Subclavian Vein, Percutaneous Approach (ICD-10-PCS; principal; 2020-03-12)
PROC: 05H733Z Insertion of Infusion Device into Right Axillary Vein, Percutaneous Approach (ICD-10-PCS; 2020-03-19)
DX: N17.9 Acute kidney failure, unspecified (principal); G92 Toxic encephalopathy; I50.30 Unspecified diastolic (congestive) heart failure; N39.0 Urinary tract infection, site not specified; Z16.12 Extended spectrum beta lactamase (ESBL) resistance; Z94.0 Kidney transplant status; L89.890 Pressure ulcer of other site, unstageable; N18.9 Chronic kidney disease, unspecified; I11.0 Hypertensive heart disease with heart failure; Z86.718 Personal history of other venous thrombosis and embolism; B96.20 Unspecified Escherichia coli [E. coli] as the cause of diseases classified elsewhere; Z95.0 Presence of cardiac pacemaker; E86.0 Dehydration; R32 Unspecified urinary incontinence; Z89.511 Acquired absence of right leg below knee; Z89.421 Acquired absence of other right toe(s); N12 Tubulo-interstitial nephritis, not specified as acute or chronic; I73.9 Peripheral vascular disease, unspecified; Z79.01 Long term (current) use of anticoagulants
CPT/HCPCS: 36415; 36569; 70450; 71045; 74176; 76770; 76937; 80048; 80053; 80158; 81003; 82150; 82248; 82550; 82570; 83690; 84300; 84484; 85025; 85610; 85651; 85730; 86140; 87086; 87181; 93005; 99285

== ENCOUNTER 2020-04-12 19:11 | Inpatient (IN) | payer MEDICARE, OTHER ==
[~2020-04-12] VITALS: Ht 167.6 cm; Wt 58.5 kg
[2020-04-12 19:33] VITALS: BP 148/72
[2020-04-12] MEDS ORDERED: Omnipaque-300 100ml vial INJ PRN (20:00)
[2020-04-12 20:32] LABS: BASOPHILS % (AUTO) 1.7 % (0.0-2.0); HEMATOCRIT 33.2 % (37.0-47.0); HEMOGLOBIN 10.7 G/DL (12.0-16.0); LYMPHOCYTES % (AUTO) 21.1 % (20.0-45.0); MEAN CORPUSCULAR VOLUME 102 FL (80-99); MONOCYTES % (AUTO) 6.6 % (1.0-10.0); NEUTROPHILS % (AUTO) 69.6 % (45.0-75.0); PLATELET COUNT 180 K/UL (150-450); RED BLOOD COUNT 3.24 M/UL (4.20-5.40); RED CELL DISTRIBUTION WIDTH 15.1 % (11.6-14.8); WHITE BLOOD COUNT 5.6 K/UL (4.8-10.8)
[2020-04-12 20:38] LABS: ANION GAP 11 mmol/L (5-15); BLOOD UREA NITROGEN 16 mg/dL (7-18); CALCIUM 8.7 MG/DL (8.5-10.1); CARBON DIOXIDE 23 MMOL/L (21-32); CHLORIDE 111 MMOL/L (98-107); CREATININE 1.2 MG/DL (0.55-1.30); POTASSIUM 3.8 MMOL/L (3.5-5.1); SODIUM 145 MMOL/L (136-145)
[2020-04-12 20:43] LABS: ALANINE AMINOTRANSFERASE < 6 U/L (12-78); ALBUMIN 3.3 G/DL (3.4-5.0); ALBUMIN/GLOBULIN RATIO 0.7 (1.0-2.7); ALKALINE PHOSPHATASE 90 U/L (46-116); ASPARTATE AMINO TRANSFERASE 22 U/L (15-37); BILIRUBIN,TOTAL 0.3 MG/DL (0.2-1.0)
--- NOTE | 2020-04-12 21:42 | Diagnostic Imaging Report ---
EXAM: CT Abdomen and Pelvis With Intravenous Contrast CLINICAL HISTORY: ABD PAIN TECHNIQUE: Axial computed tomography images of the abdomen and pelvis with intravenous contrast. CTDI is 6.3 mGy and DLP is 375.20 mGy-cm. One or more of the following dose reduction techniques were used: automated exposure control, adjustment of the mA and/or kV according to patient size, use of iterative reconstruction technique. COMPARISON: 03/12/2020. 03/14/2020 FINDINGS: Lung bases: Finding of note is a 1.1 x 0.6 x 1.2 cm noncalcified nodule centrally of the left lung base best seen on series 8 image 12. Neoplasm or metastatic disease cannot be excluded. PET imaging is advised to follow. COPD. Subsegmental atelectasis at the lung bases. Mediastinum: Small hiatal hernia. Probable distal esophagitis. ABDOMEN: Liver: Diffuse fatty infiltration of the liver is noted. Gallbladder and bile ducts: Status post cholecystectomy. No ductal dilation. Pancreas: The head, body, tail of the pancreas are unremarkable. No ductal dilation. Spleen: Spleen enhance uniformly. 1 cm probable hemangioma inferior anterior aspect of the spleen. Probable splenic cysts. Adrenals: 1.4 cm probable left adrenal adenoma. No follow-up is advised. A 0.5 cm probable right adrenal adenoma. Kidneys and ureters: Both kidneys are atrophic and contain innumerable nonobstructing calculi and probable simple cyst. No follow-up is advised to Right pelvic transplant kidney is noted in place. Mild to moderate hydronephrosis of the transplant kidney. Stomach and bowel: Moderate quantity of stool throughout the colon. No evidence of bowel obstruction. Minimal wall thickening of the distal rectum leading to the anus best seen on series 13 image 42. Inflammatory or infectious etiology should be considered. PELVIS: Appendix: The appendix is seen on axial image 56 and is unremarkable. Bladder: The bladder is grossly unremarkable. Pelvic phleboliths are noted. Reproductive: The patient is status post hysterectomy. ABDOMEN and PELVIS: Intraperitoneal space: Unremarkable. No free air. No significant fluid collection. Bones/joints: Moderate degenerative disc disease throughout the thoracolumbar spine is noted. Moderate to severe osteoarthritic changes about the sacroiliac joints. Orthopedic screws are noted in place within the proximal left femur. Gentle levoscoliosis of the thoracolumbar spine. Moderate to severe degenerative disc disease of the thoracolumbar spine. The sacrum and coccyx are unremarkable. No acute fracture. No dislocation. Soft tissues: A 2.9 cm subcutaneous probable seroma is noted in the right lower quadrant anterior abdominal wall. Clinical correlation is advised. Ischiorectal fat is clean. Extensive subcutaneous inflammatory changes in the lower buttocks subcutaneous tissues suggestive of diffuse cellulitis. Vasculature: Atherosclerotic disease of the abdominal aorta is noted. Flow is demonstrated within the celiac, SMA, the renal arteries, and JUDE. Significant atherosclerotic disease of these main vessels of the abdominal aorta are also noted. Lymph nodes: No pelvic or inguinal lymphadenopathy. Other findings: Elevation of the right hemidiaphragm. Vacuum discs are noted in place. No follow-up is advised. IMPRESSION: 1. Noncalcified nodule at the left lung base. PET imaging is advised to follow. Neoplasm or metastatic disease cannot be excluded. 2. Cardiomegaly. 3. Small hiatal hernia. 4. Distal esophagitis. 5. ASCVD. 6. Diffuse fatty infiltration of the liver. 7. 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 8. Probable simple splenic cyst also noted. 9. Probable adrenal adenomas, no further workup is a follow-up is advised. 10. Atrophic kidneys containing innumerable nonobstructing renal calculi and simple cyst. 11. Appendix is unremarkable. 12. Moderate crepitus stool throughout the colon. 13. No evidence of bowel obstruction. 14. Past point kidney in the right lower quadrant exhibits mild to moderate hydronephrosis of uncertain etiology. No filling defect within the transplant ureter is noted. 15. Probable seroma right lower quadrant anterior abdominal wall. Clinical correlation is advised. 16. Status post hysterectomy. 17. Minimal wall thickening of the distal rectum. Inflammatory or infectious etiology should be considered. 18. Diffuse inflammatory changes of the stent continues tissues of the buttocks suggestive of cellulitis. Clinical correlation is advised.
[2020-04-12 22:06] LABS: APPEARANCE,URINE VERY CLOUDY; BILIRUBIN, URINE NEGATIVE (NEGATIVE); COLOR,URINE PALE YELLOW; GLUCOSE, URINE (UA) NEGATIVE (NEGATIVE); KETONES,URINE NEGATIVE (NEGATIVE); LEUKOCYTE ESTERASE ,URINE 3+ (NEGATIVE); NITRITE,URINE NEGATIVE (NEGATIVE); PH,URINE 5 (4.5-8.0); PROTEIN,URINE 3+ (NEGATIVE); UROBILINOGEN,URINE NORMAL MG/DL (0.0-1.0)
--- NOTE | 2020-04-12 22:32 | Emergency Room Report ---
History of Present Illness General Chief Complaint: Abdominal Pain Source: Patient Present Illness HPI This patient states that for the past 2 days she has had crampy abdominal pain and recurrent diarrhea. She is also had polyuria. She denies fever chills. She denies nausea or vomiting. She denies chest pain or shortness of breath. She denies cough or congestion. She has no other complaints. 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: No Patient History Past Medical History: see triage record, DM, HTN, CT, CAD, CHF, seizures Past Surgical History: pacemaker, other - BKA Social History: Denies: smoking, alcohol use, drug use Reviewed Nursing Documentation: PMH: Agreed; PSxH: Agreed Nursing Documentation-PMH Hx Cardiac Problems: Yes Hx Hypertension: Yes Hx Pacemaker: Yes - left upper chest Hx Asthma: Yes Hx Diabetes: Yes Hx Cancer: No Hx Gastrointestinal Problems: No Hx Dialysis: No Hx Neurological Problems: Yes Hx Cerebrovascular Accident: Yes Hx Dementia: Yes Hx Seizures: Yes Hx Memory Loss: Yes Hx Dizziness: Yes Review of Systems All Other Systems: negative except mentioned in HPI Physical Exam Vital Signs Date Time Temp Pulse Resp B/P (MAP) Pulse Ox O2 Delivery O2 Flow Rate FiO2 04/12/20 19:19 97.9 87 20 153/75 (101) 97 04/12/20 19:33 Room Air Sp02 EP Interpretation: reviewed, normal General Appearance: no apparent distress, alert, GCS 15, non-toxic Head: normocephalic, atraumatic Eyes: bilateral eye normal inspection, bilateral eye PERRL ENT: hearing grossly normal, normal pharynx, no angioedema, normal voice Neck: full range of motion, supple/symm/no masses Respiratory: chest non-tender, lungs clear, normal breath sounds, no respiratory distress, no retraction, no accessory muscle use, speaking full sentences Cardiovascular #1: regular rate, rhythm, no edema Gastrointestinal: normal bowel sounds, soft, non-distended, no guarding, no rebound, tenderness - TTP diffusely Rectal: deferred Musculoskeletal: non-tender Neurologic: alert, motor strength/tone normal, oriented x3, responsive, speech normal, grossly normal Psychiatric: judgement/insight normal, memory normal, mood/affect normal, no suicidal/homicidal ideation Skin: Decubitus/Ulcer - See RN skin exam Medical Decision Making Diagnostic Impression: Primary Impression: Pyelonephritis ER Course This patient is found to have a urinary tract infection/pyelonephritis. The patient was admitted a month ago for urinary tract infection and had a polydrug resistant urinary tract infection. Give the patient IV meropenem here in the emergency department. Given the patient's age and multiple chronic medical problems, I will admit this patient for IV antibiotics and close monitoring. The patient remained stable in the emergency department. Laboratory Tests Test 04/12/20 19:53 04/12/20 21:43 White Blood Count 5.6 K/UL (4.8-10.8) Red Blood Count 3.24 M/UL (4.20-5.40) L Hemoglobin 10.7 G/DL (12.0-16.0) L Hematocrit 33.2 % (37.0-47.0) L Mean Corpuscular Volume 102 FL (80-99) H Mean Corpuscular Hemoglobin 33.0 PG (27.0-31.0) H Mean Corpuscular Hemoglobin Concent 32.2 G/DL (32.0-36.0) Red Cell Distribution Width 15.1 % (11.6-14.8) H Platelet Count 180 K/UL (150-450) Mean Platelet Volume 9.6 FL (6.5-10.1) Neutrophils (%) (Auto) 69.6 % (45.0-75.0) Lymphocytes (%) (Auto) 21.1 % (20.0-45.0) Monocytes (%) (Auto) 6.6 % (1.0-10.0) Eosinophils (%) (Auto) 1.0 % (0.0-3.0) Basophils (%) (Auto) 1.7 % (0.0-2.0) Sodium Level 145 MMOL/L (136-145) Potassium Level 3.8 MMOL/L (3.5-5.1) Chloride Level 111 MMOL/L (98-107) H Carbon Dioxide Level 23 MMOL/L (21-32) Anion Gap 11 mmol/L (5-15) Blood Urea Nitrogen 16 mg/dL (7-18) Creatinine 1.2 MG/DL (0.55-1.30) Estimated Glomerular Filtration Rate 52.1 mL/min (>60) Glucose Level 132 MG/DL (74-106) H Calcium Level 8.7 MG/DL (8.5-10.1) Total Bilirubin 0.3 MG/DL (0.2-1.0) Aspartate Amino Transferase (AST) 22 U/L (15-37) Alanine Aminotransferase (ALT) < 6 U/L (12-78) L Alkaline Phosphatase 90 U/L (46-116) Total Protein 8.0 G/DL (6.4-8.2) Albumin 3.3 G/DL (3.4-5.0) L Globulin 4.7 g/dL Albumin/Globulin Ratio 0.7 (1.0-2.7) L Urine Color Pale yellow Urine Appearance Very cloudy Urine pH 5 (4.5-8.0) Urine Specific [place] 1.010 (1.005-1.035) Urine Protein 3+ (NEGATIVE) H Urine Glucose (UA) Negative (NEGATIVE) Urine Ketones Negative (NEGATIVE) Urine Blood 3+ (NEGATIVE) H Urine Nitrite Negative (NEGATIVE) Urine Bilirubin Negative (NEGATIVE) Urine Urobilinogen Normal MG/DL (0.0-1.0) Urine Leukocyte Esterase 3+ (NEGATIVE) H Urine RBC Tntc /HPF (0 - 2) H Urine WBC Tntc /HPF (0 - 2) H Urine Squamous Epithelial Cells Moderate /LPF (NONE/OCC) H Urine Bacteria Many /HPF (NONE) H CT/MRI/US Diagnostic Results CT/MRI/US Diagnostic Results : Imaging Test Ordered: CT abd/pelvis Impression See official report in the electronic medical record. Many incidental findings. IMPRESSION: 1. Noncalcified nodule at the left lung base. PET imaging is advised to follow. Neoplasm or metastatic disease cannot be excluded. 2. Cardiomegaly. 3. Small hiatal hernia. 4. Distal esophagitis. 5. ASCVD. 6. Diffuse fatty infiltration of the liver. 7. 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 8. Probable simple splenic cyst also noted. 9. Probable adrenal adenomas, no further workup is a follow-up is advised. 10. Atrophic kidneys containing innumerable nonobstructing renal calculi and simple cyst. 11. Appendix is unremarkable. 12. Moderate crepitus stool throughout the colon. 13. No evidence of bowel obstruction. 14. Past point kidney in the right lower quadrant exhibits mild to moderate hydronephrosis of uncertain etiology. No filling defect within the transplant ureter is noted. 15. Probable seroma right lower quadrant anterior abdominal wall. Clinical correlation is advised. 16. Status post hysterectomy. 17. Minimal wall thickening of the distal rectum. Inflammatory or infectious etiology should be considered. 18. Diffuse inflammatory changes of the stent continues tissues of the buttocks suggestive of cellulitis. Clinical correlation is advised. Last Vital Signs Date Time Temp Pulse Resp B/P (MAP) Pulse Ox O2 Delivery O2 Flow Rate FiO2 04/12/20 19:33 97.9 85 20 148/72 96 Room Air Disposition: ADMITTED INPATIENT Condition: Stable Referrals: NOT CHOSEN IPA/,REFERRING (PCP) Neha Scott DO Apr 12, 2020 22:31
[2020-04-12] MEDS ORDERED: Meropenem 1 GM in NS 55 ML IVPB ONE (22:45)
[2020-04-13 00:33] VITALS: BP 159/82
[2020-04-13 04:00] VITALS: BP 120/96
[2020-04-13] MEDS: HydrALAZINE 25mg tab ORAL SCH ×3 (05:57→21:46)
[2020-04-13] MEDS: Piperacillin/Tazobactam 3.375 GM in NS 110 ML IVPB SCH ×3 (05:57→21:24)
[2020-04-13 08:00] VITALS: BP 171/68
[2020-04-13] MEDS: cycloSPORINE 100mg cap ORAL SCH ×2 (08:14→18:31)
[2020-04-13] MEDS: HYDROcodone/Acetamin 10/325 tab ORAL SCH (08:16)
[2020-04-13] MEDS: Xarelto 10mg tab ORAL SCH (08:17)
[2020-04-13] MEDS: azaTHIOprine 50 MG TAB ORAL SCH (08:17)
--- NOTE | 2020-04-13 11:30 | History and Physical Report ---
DATE OF ADMISSION: 04/12/2020 CHIEF COMPLAINT: Altered mental status, sepsis, chest pain. HISTORY OF PRESENT ILLNESS: The patient is a pleasant female, was brought in by family members. I was contacted by her granddaughter yesterday that she was confused, dizzy and complaining of chest pain. She was brought to the emergency room. On evaluation there, she was diagnosed with UTI. She has been started on broad-spectrum IV antibiotics. She is now admitted. She is currently remains confused and altered. PAST MEDICAL HISTORY: As above. History of kidney transplant, history of DVT, hypertension, history of BKA, PAD. PAST SURGICAL HISTORY: As above. CURRENT MEDICATIONS: Reconciled and reviewed. ALLERGIES: None. FAMILY HISTORY: None. SOCIAL HISTORY: There is no known history of tobacco, ethanol, or drugs. REVIEW OF SYSTEMS: GENERAL: No fevers or chills. HEENT: No headaches or visual changes. CARDIOPULMONARY: Positive chest pain. No shortness of breath. GASTROINTESTINAL: No nausea or vomiting. GENITOURINARY: No urgency or frequency. MUSCULOSKELETAL: No joint pain or swelling. NEUROLOGIC: No evidence of seizures. PHYSICAL EXAMINATION: VITAL SIGNS: Temperature 96.3, pulse 85, respirations 19, blood pressure 159/82. GENERAL: The patient is well developed, no apparent distress. HEENT: Head is normocephalic, atraumatic. Sclerae anicteric. Oropharynx is clear. Mucous membranes are moist. NECK: Supple. HEART: Regular rate and rhythm. LUNGS: Clear to auscultation bilaterally. ABDOMEN: Soft, nontender, nondistended. EXTREMITIES: No clubbing, cyanosis, or edema. The patient has a BKA on the right. NEUROLOGIC: Grossly nonfocal, although the patient is confused and oriented only to person. LABORATORY DATA: Sodium 145, potassium 3.8. White count 5, hemoglobin 10. Urine showed too numerous to count wbc's. ASSESSMENT: This is an 80-year-old female with a history of kidney transplant, hypertension, PAD, DVT, admitted with complaints of altered mental status secondary to sepsis from UTI. PROBLEM LIST: 1. Altered mental status/toxic metabolic encephalopathy. 2. UTI. 3. History of kidney transplant. 4. Hypertension. 5. History of DVT on anticoagulation. 6. Chest pain. PLAN: IV antibiotics. Followup cultures. Gentle hydration. Check a troponin. Continue anticoagulation. Cardiology and Infectious Disease consultations are pending. John Red M.D. DR: GORGE JOB#: [id number] CC:
[2020-04-13 12:00] VITALS: BP 148/90
[2020-04-13 16:00] VITALS: BP 140/88
--- NOTE | 2020-04-13 17:00 | Consultation ---
DATE OF CONSULTATION: 04/13/2020 NEPHROLOGY CONSULTATION CONSULTING PHYSICIAN: Kade Cochran MD. REFERRING PHYSICIAN: John Red MD. REASON FOR CONSULTATION: I am asked to evaluate the patient 80-year-old lady with kidney transplant, UTI, altered mental status. HISTORY OF PRESENT ILLNESS: The patient has had a kidney transplant since 1996 with generally stable renal function. She had recurrent UTIs and last month was hospitalized with an ESBL UTI. She presents now with altered mental status. She has also had dysuria and pyuria and some tenderness and pain around the transplant. There is a history of peripheral vascular disease with amputations, hypertension, recurrent hyperkalemia, chronic pain, prior decubitus ulcers. 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 MEDICATIONS: Reviewed on the computer. She is unable to give any details. HABITS: She is a nondrinker and nonsmoker. No use of illicit drugs. SYSTEM REVIEW: HEAD, EYES, EARS, NOSE, AND THROAT: Vision and hearing appeared to be good. ENDOCRINE: She has had glucose intolerance in the past when on steroids and has been maintained off steroids. No thyroid disease. PULMONARY: No asthma, TB, chronic cough. CARDIAC: History of pacemaker, history of coronary artery disease. GASTROINTESTINAL: History of recurrent nausea and vomiting. GENITOURINARY: History of recurrent dysuria. She has a neurogenic bladder. MUSCULOSKELETAL: History of amputations, history of chronic pain syndrome. NEUROLOGIC: No episode of paralysis or acute CVA, but she has had some confusion and metabolic encephalopathy in the past. PHYSICAL EXAMINATION: GENERAL: The patient is lying in bed, in no acute distress. VITAL SIGNS: Temperature 97.4, pulse 82, respirations 20, blood pressure 140/66. HEAD, EYES, EARS, NOSE, AND THROAT: Sclerae are nonicteric. Ocular motions intact in all directions. Oral mucosa is moist. NECK: No adenopathy or thyroid enlargement. LUNGS: Clear. HEART: Rhythm is regular. I hear no murmur. ABDOMEN: Soft, nondistended. The renal transplant in the right iliac fossa is minimally tender. No rebound. EXTREMITIES: No edema. There is a right below-knee amputation. NEUROLOGIC: She is alert and responsive. She cannot give the date properly. She has somewhat rambling speech and disorientation. No focal weakness. PERTINENT LABORATORY DATA: White count 5.6, hemoglobin 10.7. Sodium 145, potassium 3.8, chloride 111, CO2 23, BUN 16, creatinine 1.2. Urinalysis has too numerous to count white cells and red cells. IMPRESSION: 1. Kidney transplant status. We want to continue her immunosuppression with azathioprine and cyclosporine. 2. Pyuria and likely recurrent UTI with a recent ESBL UTI. 3. Peripheral vascular disease, status post amputation. 4. Hypertension. 5. Coronary artery disease. 6. History of gastritis. 7. History of DVT, on anticoagulation with rivaroxaban. 8. Altered mental status, which could be related to opiates, acute infection, possible sepsis and possibly underlying dementia, likely vascular. PLAN: All orders reviewed for kidney transplant status, avoid dehydration and we will check cultures when ready. Kade Cochran M.D. DR: SE/KIMBERLY JOB#: [id number] CC:
[2020-04-13 19:58] VITALS: BP 164/88
[2020-04-13] MEDS: HYDROcodone/Acetamin 10/325 tab ORAL PRN (21:23)
[2020-04-14] VITALS: BP 149/82
[2020-04-14 04:00] VITALS: BP 147/94
[2020-04-14] MEDS: Piperacillin/Tazobactam 3.375 GM in NS 110 ML IVPB SCH ×3 (05:07→21:47)
[2020-04-14] MEDS: HydrALAZINE 25mg tab ORAL SCH ×3 (06:11→22:44)
[2020-04-14 08:00] VITALS: BP 161/84
[2020-04-14] MEDS: HYDROcodone/Acetamin 10/325 tab ORAL SCH (08:33)
[2020-04-14] MEDS: Xarelto 10mg tab ORAL SCH (08:34)
[2020-04-14] MEDS: azaTHIOprine 50 MG TAB ORAL SCH (08:34)
[2020-04-14] MEDS: cycloSPORINE 100mg cap ORAL SCH ×2 (08:35→17:18)
[2020-04-14] MEDS: HYDROcodone/Acetamin 10/325 tab ORAL PRN (11:52)
[2020-04-14 12:00] VITALS: BP 131/71
[2020-04-14 16:00] VITALS: BP 137/66
--- NOTE | 2020-04-14 16:29 | Consultation ---
DATE OF CONSULTATION: 04/14/2020 INFECTIOUS DISEASES CONSULTATION CONSULTING PHYSICIAN: Nikki Bob MD. REFERRING PHYSICIAN: John Red MD. REASON FOR CONSULTATION: Urinary tract infection. HISTORY OF PRESENTING ILLNESS: This is an 80-year-old lady with history of hypertension, right-sided BKA, kidney transplant, DVT, peripheral arterial disease, who came in with confusion, dizziness. She was found to have a urinary tract infection and an Infectious Diseases consultation has been obtained for antibiotics. PAST MEDICAL HISTORY: 1. History of hypertension. 2. History of DVT. 3. Peripheral arterial disease, status post right BKA. 4. History of kidney transplant. SOCIAL HISTORY: She does not smoke, drink, or use drugs. FAMILY HISTORY: Noncontributory. REVIEW OF SYSTEMS: RESPIRATORY: No fever or chills. No cough. She does have some shortness of breath. No chest pain. CARDIAC: No chest pain. No palpitation. No dizziness. No syncope. GASTROINTESTINAL: No nausea. No vomiting. No abdominal pain or diarrhea. MUSCULOSKELETAL: She complains of pain. MEDICATIONS: As an inpatient, she is on Remeron, Restoril, [place], Norvasc, azathioprine, carvedilol, cyclosporine, fludrocortisone, hydrocodone, acetaminophen, Protonix, Xarelto, hydralazine, Zosyn, Tylenol, Zofran. ALLERGIES: No known drug allergies. PHYSICAL EXAMINATION: VITAL SIGNS: Temperature of 97.1, T-max of 98, pulse of 79, respiratory rate 19, blood pressure 161/84, O2 saturation of 99% on room air. HEENT: Pupils equally reactive to light and accommodation. Mouth appears clean without thrush. NECK: Supple. No adenopathy. No JVD. CARDIOVASCULAR: Regular rate and rhythm. No murmurs. LUNGS: Clear to auscultation bilaterally. No crackles. No wheezes. ABDOMEN: Soft, nontender. No organomegaly. EXTREMITIES: No cyanosis. No clubbing. Left leg edema noted. Right stump is clean. LABORATORY AND DIAGNOSTIC DATA: White count 5.6, hemoglobin 10.7, hematocrit 33.2, MCV 102, platelet count of 180,000, neutrophils of 69%. Sodium 145, potassium 3.8, chloride 111, bicarb 23, BUN 16, creatinine 1.2, glucose 132, calcium 8.7. Total bilirubin 0.3. AST 22, ALT less than 6, alkaline phosphatase 90. Total protein 8. Albumin 3.3. UA is showing too numerous to count white cells. Urine culture showing gram-negative rods. CT abdomen and pelvis showing left lung base nodule, cardiomegaly, small hiatal hernia. Distal esophagitis noted. Fatty liver noted. Splenic cyst noted. Nonobstructing renal calculi. No evidence of bowel obstruction. [id number] hydronephrosis, status post hysterectomy. ASSESSMENT: This is an 80-year-old lady with history of hypertension, kidney transplant, DVT, peripheral arterial disease, who comes in with altered mental status and was found to have, 1. Urinary tract infection. 2. Hydronephrosis. 3. History of kidney transplant. 4. Hypertension. 5. Status post right BKA. PLAN: 1. Continue IV Zosyn. 2. We will follow up cultures and adjust antibiotics accordingly. I would like to thank, Dr. Red, for this consultation. Nikki Bob M.D. DR: LUTHER JOB#: [id number] CC: John Red MD.
--- NOTE | 2020-04-14 17:02 | General Progress Note ---
Assessment/Plan Problem List: (1) Status post kidney transplant ICD Codes: Z94.0 - Kidney transplant status SNOMED: 26411970, 511497552 (2) Kidney transplanted ICD Codes: Z94.0 - Kidney transplanted SNOMED: 437308111 (3) UTI (urinary tract infection) ICD Codes: N39.0 - Urinary tract infection, site not specified SNOMED: 20871893 (4) Pyelonephritis ICD Codes: N12 - Pyelonephritis SNOMED: 44452082 (5) DVT (deep venous thrombosis) ICD Codes: I82.409 - Acute embolism and thrombosis of unspecified deep veins of unspecified lower extremity SNOMED: 357596167 (6) Encephalopathy acute ICD Codes: G93.40 - Encephalopathy acute SNOMED: 9773500 Status: stable, progressing Assessment/Plan: cont current rx ivf and iv abx follow up cultures pain rx transplant meds per renal bp meds per cards xarelto monitor for bleeding Subjective ROS Limited/Unobtainable: No Constitutional: Reports: malaise, weakness HEENT: Reports: no symptoms Cardiovascular: Reports: no symptoms Respiratory: Reports: no symptoms Gastrointestinal/Abdominal: Reports: no symptoms Genitourinary: Reports: no symptoms Neurologic/Psychiatric: Reports: no symptoms Endocrine: Reports: no symptoms Hematologic/Lymphatic: Reports: no symptoms Allergies: Coded Allergies: No Known Allergies (Verified , 05/29/09) All Systems: reviewed and negative except above Subjective Complains of pain. On IV antibiotics. Urine culture with gram-negative rods. No fevers chills or chest pain. Denies cough. Unable to obtain antirejection medications on the outside Objective Last 24 Hour Vital Signs Date Time Temp Pulse Resp B/P (MAP) Pulse Ox O2 Delivery O2 Flow Rate FiO2 04/14/20 16:00 98.0 79 18 137/66 (89) 99 04/14/20 13:03 131/71 04/14/20 12:00 98.1 78 16 131/71 (91) 99 04/14/20 09:00 Room Air 04/14/20 08:35 79 161/84 04/14/20 08:34 79 161/84 04/14/20 08:00 97.1 79 19 161/84 (109) 99 04/14/20 06:11 147/94 04/14/20 04:00 98.0 77 19 147/94 (111) 100 04/14/20 00:00 97.6 74 20 149/82 (104) 98 04/13/20 21:46 164/88 04/13/20 21:21 79 164/88 04/13/20 21:00 Room Air 04/13/20 19:58 97.7 79 20 164/88 (113) 99 04/13/20 18:31 148/90 Intake and Output 04/13/20 04/14/20 19:00 07:00 Intake Total 360 ml Balance 360 ml Intake Oral 360 ml # Voids 2 1 Height (Feet): 5 Height (Inches): 6.00 Weight (Pounds): 129 General Appearance: WD/WN, no apparent distress, alert EENT: PERRL/EOMI, normal ENT inspection Neck: non-tender, normal alignment Cardiovascular: normal peripheral pulses, normal rate Respiratory/Chest: chest wall non-tender, lungs clear, normal breath sounds Abdomen: normal bowel sounds, non tender, soft, no organomegaly Edema: no edema noted Arm (L), no edema noted Arm (R), no edema noted Leg (L), no edema noted Leg (R), no edema noted Pedal (L), no edema noted Pedal (R), no edema noted Generalized 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
--- NOTE | 2020-04-14 17:32 | Nephrology Progress Note ---
Assessment/Plan Problem List: (1) Status post kidney transplant (2) UTI (urinary tract infection) (3) Phantom limb pain Plan continue same cyclosporin and aziothioprine, check cultures, on zosyn Subjective Constitutional: Reports: weakness HEENT: Reports: no symptoms Genitourinary: Reports: incontinence Neurologic/Psychiatric: Reports: no symptoms Objective Objective Last 24 Hour Vital Signs Date Time Temp Pulse Resp B/P (MAP) Pulse Ox O2 Delivery O2 Flow Rate FiO2 04/14/20 16:00 98.0 79 18 137/66 (89) 99 04/14/20 13:03 131/71 04/14/20 12:00 98.1 78 16 131/71 (91) 99 04/14/20 09:00 Room Air 04/14/20 08:35 79 161/84 04/14/20 08:34 79 161/84 04/14/20 08:00 97.1 79 19 161/84 (109) 99 04/14/20 06:11 147/94 04/14/20 04:00 98.0 77 19 147/94 (111) 100 04/14/20 00:00 97.6 74 20 149/82 (104) 98 04/13/20 21:46 164/88 04/13/20 21:21 79 164/88 04/13/20 21:00 Room Air 04/13/20 19:58 97.7 79 20 164/88 (113) 99 04/13/20 18:31 148/90 Intake and Output 04/13/20 04/14/20 19:00 07:00 Intake Total 360 ml Balance 360 ml Intake Oral 360 ml # Voids 2 1 Height (Feet): 5 Height (Inches): 6.00 Weight (Pounds): 129 General Appearance: no apparent distress, alert EENT: normal ENT inspection Neck: normal alignment Cardiovascular: normal rate Respiratory/Chest: lungs clear Abdomen: soft Extremities: no edema, other - r bka 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
[2020-04-14 20:00] VITALS: BP 141/72
[2020-04-15] VITALS: BP 148/75
[2020-04-15 04:00] VITALS: BP 142/72
[2020-04-15] MEDS: Piperacillin/Tazobactam 3.375 GM in NS 110 ML IVPB SCH ×3 (05:09→21:25)
[2020-04-15] MEDS: HydrALAZINE 25mg tab ORAL SCH ×3 (05:49→21:27)
[2020-04-15 08:00] VITALS: BP 157/80
[2020-04-15] MEDS: azaTHIOprine 50 MG TAB ORAL SCH (08:58)
[2020-04-15] MEDS: cycloSPORINE 100mg cap ORAL SCH ×2 (08:58→17:15)
[2020-04-15] MEDS: Xarelto 10mg tab ORAL SCH (09:01)
[2020-04-15] MEDS: HYDROcodone/Acetamin 10/325 tab ORAL SCH (09:01)
--- NOTE | 2020-04-15 11:39 | General Progress Note ---
Assessment/Plan Problem List: (1) Status post kidney transplant ICD Codes: Z94.0 - Kidney transplant status SNOMED: 97460490, 556756807 (2) Kidney transplanted ICD Codes: Z94.0 - Kidney transplanted SNOMED: 276833488 (3) UTI (urinary tract infection) ICD Codes: N39.0 - Urinary tract infection, site not specified SNOMED: 90178164 (4) Pyelonephritis ICD Codes: N12 - Pyelonephritis SNOMED: 49353042 (5) DVT (deep venous thrombosis) ICD Codes: I82.409 - Acute embolism and thrombosis of unspecified deep veins of unspecified lower extremity SNOMED: 844426874 (6) Encephalopathy acute ICD Codes: G93.40 - Encephalopathy acute SNOMED: 0826674 Status: stable, progressing Assessment/Plan: cont current rx ivf and iv abx follow up cultures pain rx transplant meds per renal bp meds per cards xarelto monitor for bleeding pain rx adjusted Subjective ROS Limited/Unobtainable: No Constitutional: Reports: malaise, weakness HEENT: Reports: no symptoms Cardiovascular: Reports: no symptoms Respiratory: Reports: no symptoms Gastrointestinal/Abdominal: Reports: no symptoms Genitourinary: Reports: no symptoms Neurologic/Psychiatric: Reports: no symptoms Endocrine: Reports: no symptoms Hematologic/Lymphatic: Reports: no symptoms Allergies: Coded Allergies: No Known Allergies (Verified , 05/29/09) All Systems: reviewed and negative except above Subjective Complains of pain. per pt not well controlled. On IV antibiotics. Urine culture with gram-negative rods. No fevers chills or chest pain. Denies cough. Unable to obtain antirejection medications on the outside. asking to go to snf Objective Last 24 Hour Vital Signs Date Time Temp Pulse Resp B/P (MAP) Pulse Ox O2 Delivery O2 Flow Rate FiO2 04/15/20 09:00 Room Air 04/15/20 08:57 78 157/80 04/15/20 08:57 78 157/80 04/15/20 08:00 97.3 78 22 157/80 (105) 98 04/15/20 05:49 147/75 04/15/20 04:00 97.5 84 18 142/72 (95) 98 04/15/20 00:00 98.3 81 18 148/75 (99) 98 04/14/20 22:44 142/73 04/14/20 20:38 88 133/71 04/14/20 20:12 Room Air 04/14/20 20:00 98.0 80 18 141/72 (95) 98 04/14/20 16:00 98.0 79 18 137/66 (89) 99 04/14/20 13:03 131/71 04/14/20 12:00 98.1 78 16 131/71 (91) 99 Intake and Output 04/14/20 04/15/20 19:00 07:00 Intake Total 675 ml 812.5 ml Balance 675 ml 812.5 ml Intake Oral 300 ml IV Total 75 ml 512.5 ml Other 600 ml # Voids 3 Height (Feet): 5 Height (Inches): 6.00 Weight (Pounds): 129 General Appearance: WD/WN, alert EENT: PERRL/EOMI, normal ENT inspection Neck: non-tender, normal alignment, supple Cardiovascular: normal peripheral pulses, normal rate, regular rhythm Respiratory/Chest: chest wall non-tender, lungs clear, normal breath sounds, no respiratory distress, no accessory muscle use Abdomen: normal bowel sounds, non tender, soft, no organomegaly, no mass Extremities: normal range of motion Edema: no edema noted Arm (L), no edema noted Arm (R), no edema noted Leg (L), no edema noted Leg (R), no edema noted Pedal (L), no edema noted Pedal (R), no edema noted Generalized 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
[2020-04-15 12:00] VITALS: BP 159/78
--- NOTE | 2020-04-15 14:07 | Infectious Diseases Prog Note ---
Assessment/Plan Assessment/Plan A; 1. Urinary tract infection with E. coli 2. Hydronephrosis. 3. History of kidney transplant. 4. Hypertension. 5. Status post right BKA. 6. MRSA carrier PLAN: 1. Continue IV Zosyn. 2. We will follow up cultures and adjust antibiotics accordingly. Subjective ROS Limited/Unobtainable: No Constitutional: Reports: anorexia Respiratory: Reports: no symptoms Gastrointestinal/Abdominal: Reports: no symptoms Genitourinary: Reports: dysuria Musculoskeletal: Reports: pain, other - in legs Allergies: Coded Allergies: No Known Allergies (Verified , 05/29/09) Objective Last 24 Hour Vital Signs Date Time Temp Pulse Resp B/P (MAP) Pulse Ox O2 Delivery O2 Flow Rate FiO2 04/15/20 13:38 159/78 04/15/20 12:00 98.1 16 159/78 (105) 97 04/15/20 09:00 Room Air 04/15/20 08:57 78 157/80 04/15/20 08:57 78 157/80 04/15/20 08:00 97.3 78 22 157/80 (105) 98 04/15/20 05:49 147/75 04/15/20 04:00 97.5 84 18 142/72 (95) 98 04/15/20 00:00 98.3 81 18 148/75 (99) 98 04/14/20 22:44 142/73 04/14/20 20:38 88 133/71 04/14/20 20:12 Room Air 04/14/20 20:00 98.0 80 18 141/72 (95) 98 04/14/20 16:00 98.0 79 18 137/66 (89) 99 Height (Feet): 5 Height (Inches): 6.00 Weight (Pounds): 129 General Appearance: no acute distress HEENT: mucous membranes moist Respiratory/Chest: lungs clear Cardiovascular: normal rate Abdomen: soft, non tender Extremities: no edema, other - R BKA Neurologic/Psychiatric: alert, oriented x 3, responsive Musculoskeletal: atrophy Microbiology Date/Time Source Procedure Growth Status 04/12/20 22:46 Nasal Nares MRSA Culture - Final Staphylococcus Aureus - Mrsa Complete 04/12/20 21:43 Urine,Clean Catch Urine Culture - Final Escherichia Coli - Esbl Complete 04/12/20 22:46 Rectum - Final NO CARBAPENEM-RESISTANT ENTEROBACTERI... Complete 04/12/20 22:46 Rectum VRE Culture - Final NO VANCOMYCIN RESISTANT ENTEROCOCCUS ... Complete Current Medications Medications (Trade) Dose Ordered Sig/Toya Route PRN Reason Start Time Stop Time Status Last Admin Dose Admin Acetaminophen (Tylenol) 650 mg Q4H PRN ORAL Mild Pain (Pain Scale 1-3) 04/12/20 23:15 05/12/20 23:14 Acetaminophen/ Hydrocodone Bitart ([place] 10/325) 1 tab DAILY ORAL 04/13/20 09:00 04/20/20 08:59 04/15/20 09:01 Acetaminophen/ Hydrocodone Bitart ([place] 10/325) 1 tab Q4H PRN ORAL For Pain 04/13/20 20:00 04/20/20 19:59 04/14/20 11:52 Amlodipine Besylate (Norvasc) 5 mg DAILY ORAL 04/13/20 09:00 05/13/20 08:59 04/15/20 08:57 Azathioprine (Imuran) 75 mg DAILY ORAL 04/13/20 09:00 07/12/20 08:59 04/15/20 08:58 Carvedilol (Coreg) 3.125 mg EVERY 12 HOURS ORAL 04/13/20 09:00 05/13/20 08:59 04/15/20 08:57 Cyclosporine (Neoral) 100 mg BID ORAL 04/13/20 09:00 07/12/20 08:59 04/15/20 08:58 Fludrocortisone Acetate (Florinef) 0.1 mg DAILY ORAL 04/13/20 09:00 05/13/20 08:59 04/15/20 08:57 Gabapentin (Neurontin) 300 mg THREE TIMES A DAY ORAL 04/15/20 13:00 05/15/20 12:59 04/15/20 13:38 Hydralazine HCl (Apresoline) 25 mg EVERY 8 HOURS ORAL 04/13/20 06:00 07/12/20 05:59 04/15/20 13:38 Mirtazapine (Remeron) 15 mg BEDTIME ORAL 04/13/20 21:00 07/12/20 20:59 04/14/20 20:35 Ondansetron HCl (Zofran) 4 mg Q6H PRN IVP Nausea & Vomiting 04/12/20 23:15 05/12/20 23:14 Pantoprazole (Protonix) 40 mg DAILY ORAL 04/13/20 09:00 05/13/20 08:59 04/15/20 08:58 Piperacillin Sod/ Tazobactam Sod 3.375 gm/Sodium Chloride 110 ml @ 27.5 mls/hr EVERY 8 HOURS IVPB 04/13/20 06:00 04/18/20 05:59 04/15/20 13:40 Rivaroxaban (Xarelto) 10 mg DAILY ORAL 04/13/20 09:00 07/12/20 08:59 04/15/20 09:01 Sodium Chloride 1,000 ml @ 75 mls/hr [id number] IV 04/12/20 23:15 05/12/20 23:14 04/15/20 04:00 Temazepam (Restoril) 15 mg BEDTIME ORAL 04/13/20 21:00 04/20/20 20:59 04/14/20 20:36 Lucian Maguire MD Apr 15, 2020 14:07
--- NOTE | 2020-04-15 15:58 | Nephrology Progress Note ---
Assessment/Plan Problem List: (1) Status post kidney transplant (2) UTI (urinary tract infection) (3) Phantom limb pain Plan continue same cyclosporin and aziothioprine, check cultures, on zosyn Subjective Constitutional: Reports: weakness HEENT: Reports: no symptoms Genitourinary: Reports: burning Neurologic/Psychiatric: Reports: no symptoms Objective Objective Last 24 Hour Vital Signs Date Time Temp Pulse Resp B/P (MAP) Pulse Ox O2 Delivery O2 Flow Rate FiO2 04/15/20 13:38 159/78 04/15/20 12:00 98.1 16 159/78 (105) 97 04/15/20 09:00 Room Air 04/15/20 08:57 78 157/80 04/15/20 08:57 78 157/80 04/15/20 08:00 97.3 78 22 157/80 (105) 98 04/15/20 05:49 147/75 04/15/20 04:00 97.5 84 18 142/72 (95) 98 04/15/20 00:00 98.3 81 18 148/75 (99) 98 04/14/20 22:44 142/73 04/14/20 20:38 88 133/71 04/14/20 20:12 Room Air 04/14/20 20:00 98.0 80 18 141/72 (95) 98 04/14/20 16:00 98.0 79 18 137/66 (89) 99 Intake and Output 04/14/20 04/15/20 19:00 07:00 Intake Total 675 ml 812.5 ml Balance 675 ml 812.5 ml Intake Oral 300 ml IV Total 75 ml 512.5 ml Other 600 ml # Voids 3 Height (Feet): 5 Height (Inches): 6.00 Weight (Pounds): 129 General Appearance: no apparent distress EENT: normal ENT inspection Neck: normal alignment Cardiovascular: normal rate, regular rhythm Respiratory/Chest: lungs clear Abdomen: non tender, soft Extremities: pitting, no edema, other - r bka 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
[2020-04-15 16:00] VITALS: BP 147/79
[2020-04-15 20:00] VITALS: BP 129/69
[2020-04-16] VITALS: BP 141/71
--- NOTE | 2020-04-16 01:23 | Cardiology Progress Note ---
Subjective DATE OF SERVICE: Apr 15, 2020 She still is having difuse body pain, including back abdomen, and chest. Urine culture positive for gram neg rods Patient is concerned that she has been unable to get her immunosuppr meds as an outpatient. Objective Last 24 Hour Vital Signs Date Time Temp Pulse Resp B/P (MAP) Pulse Ox O2 Delivery O2 Flow Rate FiO2 04/16/20 00:00 97.7 77 20 141/71 (94) 97 04/15/20 21:27 129/69 04/15/20 21:25 82 129/69 04/15/20 21:00 Room Air 04/15/20 20:00 97.8 82 20 129/69 (89) 97 04/15/20 16:00 98.4 88 18 147/79 (101) 97 04/15/20 13:38 159/78 04/15/20 12:00 98.1 16 159/78 (105) 97 04/15/20 09:00 Room Air 04/15/20 08:57 78 157/80 04/15/20 08:57 78 157/80 04/15/20 08:00 97.3 78 22 157/80 (105) 98 04/15/20 05:49 147/75 04/15/20 04:00 97.5 84 18 142/72 (95) 98 HEENT: normal ENT inspection LUNGS: lungs clear bilaterally CARDIAC: regular rhythm, normal S1 and S2, gallop/S4, other - no rub ABDOMEN: normal bowel sounds, soft, other - palpable renal tx on right lower quadrant EXTREMITIES: normal capillary refill, other - right BKA Assessment/Plan Assessment/Plan UTI Sepsis Musculoskeletal Chest pain Hx DVT Hx renal transplant PAD with hx right BKA Hypertension Pacemaker PLAN: IV abx - await final cultures adjust IVF Titrate antiHTN regimen Pain control Full anti-coagulation rx Resume immunosuppr regimen Matthew Tinajero MD Apr 16, 2020 01:23
--- NOTE | 2020-04-16 03:44 | Consultation ---
DATE OF CONSULTATION: 04/12/2020 CARDIOLOGY CONSULT CONSULTING PHYSICIAN: Matthew Tinajero M.D. REQUESTING PHYSICIAN: John Red M.D. REASON FOR CONSULTATION: Chest pain in the setting of cardiomyopathy and permanent pacemaker. HISTORY OF PRESENT ILLNESS: This is an 80-year-old female with a complicated medical history that includes a renal transplant. She was brought into the emergency room with increasing confusion, lethargy, and dizziness. She has also been complaining of chest pain. Her workup in the emergency room was reviewed and hospitalization initiated. I have been asked to assist with cardiovascular care. The patient has been compliant with therapy, although she has not been able to get her immunosuppressant drugs for the course of the past month since leaving the hospital. PAST MEDICAL HISTORY: 1. Hypertension with hypertensive heart disease. 2. Diastolic dysfunction. 3. Permanent pacemaker. 4. Peripheral artery disease, status post right BKA. 5. Renal transplant. 6. Type 2 diabetes mellitus. 7. History of DVT on anticoagulation. 8. Osteoarthritis. 9. Degenerative disk disease. 10. Recurring urinary tract infections. MEDICATIONS: Reviewed and reconciled. ALLERGIES: None known. FAMILY HISTORY: Noncontributory. SOCIAL HISTORY: Positive for smoking in the past. No alcohol or substance abuse. REVIEW OF SYSTEMS: An echocardiogram in the last 6 months revealed normal ejection fraction, concentric hypertrophy, and diastolic dysfunction with mild degenerative valve disease. No pulmonary hypertension. There is no history of sustained cardiac arrhythmias. She does have a permanent pacemaker, that device was interrogated within the last 6 months and functioning appropriately with adequate battery life. She has had DVT in the past. She is on chronic anticoagulation. She has significant peripheral artery disease with prior BKA. There is no history of flow-limiting coronary disease. PHYSICAL EXAMINATION: VITAL SIGNS: Blood pressure 148/72, pulse 85, respirations 20, oxygen saturation on room air 96%. GENERAL: The patient is afebrile, responsive, but withdrawn and lethargic. Alert and oriented x3. HEENT: Arcus senilis. Dry mucous membranes. NECK: Supple. LUNGS: Clear. BREASTS: No breast masses. CARDIAC: Regular rhythm and rate. Normal S1 and S2 with a fourth heart sound. ABDOMEN: Soft. Palpable right lower quadrant ____ kidney transplant site. EXTREMITIES: With right BKA. No edema. Left distal pulses weak, but digits perfused. LABORATORY DATA: White count 5.6 and hemoglobin 10.7. Urinalysis with too numerous to count white and red cells. Sodium 145, potassium 3.8, bicarb 23, BUN 16, creatinine 1.2. Albumin 3.3. IMPRESSION: 1. Urinary tract infection. 2. Sepsis. 3. Toxic and metabolic encephalopathies. 4. Type 2 diabetes mellitus with complications. 5. Hypertensive heart disease ____ slightly elevated blood pressure parameters. 6. Peripheral artery disease. 7. History of DVT, on chronic anticoagulation. 8. History of right BKA. 9. Renal transplant. 10. Permanent pacemaker. PLAN: 1. Hydration. 2. Antimicrobials. 3. Monitor and replace electrolytes. 4. Skin care. 5. Full anticoagulation therapy. 6. Resume immunosuppressive therapy. Matthew Tinajero M.D. DR: JAYDA JOB#: [id number] CC:
[2020-04-16 04:30] VITALS: BP 152/77
[2020-04-16] MEDS: Piperacillin/Tazobactam 3.375 GM in NS 110 ML IVPB SCH ×2 (04:57→15:09)
[2020-04-16] MEDS: HydrALAZINE 25mg tab ORAL SCH ×2 (05:02→13:20)
[2020-04-16 07:08] LABS: BASOPHILS % (AUTO) 1.3 % (0.0-2.0); EOSINOPHILS % (AUTO) 1.8 % (0.0-3.0); HEMATOCRIT 28.7 % (37.0-47.0); LYMPHOCYTES % (AUTO) 33.7 % (20.0-45.0); MEAN CORPUSCULAR VOLUME 104 FL (80-99); MONOCYTES % (AUTO) 7.9 % (1.0-10.0); NEUTROPHILS % (AUTO) 55.3 % (45.0-75.0); PLATELET COUNT 143 K/UL (150-450); RED BLOOD COUNT 2.76 M/UL (4.20-5.40); RED CELL DISTRIBUTION WIDTH 14.4 % (11.6-14.8); WHITE BLOOD COUNT 3.7 K/UL (4.8-10.8)
[2020-04-16 07:37] LABS: ALBUMIN 2.4 G/DL (3.4-5.0); ALBUMIN/GLOBULIN RATIO 0.6 (1.0-2.7); ALKALINE PHOSPHATASE 63 U/L (46-116); ANION GAP 10 mmol/L (5-15); ASPARTATE AMINO TRANSFERASE 17 U/L (15-37); BILIRUBIN,TOTAL 0.4 MG/DL (0.2-1.0); BLOOD UREA NITROGEN 12 mg/dL (7-18); CALCIUM 8.3 MG/DL (8.5-10.1); CARBON DIOXIDE 22 MMOL/L (21-32); CHLORIDE 112 MMOL/L (98-107); CREATININE 1.2 MG/DL (0.55-1.30); POTASSIUM 4.2 MMOL/L (3.5-5.1); SODIUM 143 MMOL/L (136-145)
[2020-04-16 08:00] VITALS: BP 149/73
--- NOTE | 2020-04-16 08:15 | General Progress Note ---
Assessment/Plan Problem List: (1) Status post kidney transplant ICD Codes: Z94.0 - Kidney transplant status SNOMED: 89677499, 055834616 (2) Kidney transplanted ICD Codes: Z94.0 - Kidney transplanted SNOMED: 710360550 (3) UTI (urinary tract infection) ICD Codes: N39.0 - Urinary tract infection, site not specified SNOMED: 59650266 (4) Pyelonephritis ICD Codes: N12 - Pyelonephritis SNOMED: 08965878 (5) DVT (deep venous thrombosis) ICD Codes: I82.409 - Acute embolism and thrombosis of unspecified deep veins of unspecified lower extremity SNOMED: 773729950 (6) Encephalopathy acute ICD Codes: G93.40 - Encephalopathy acute SNOMED: 9027297 Status: stable, progressing Assessment/Plan: cont current rx ivf and iv abx encourage po follow up cultures pain rx transplant meds per renal bp meds per cards xarelto monitor for bleeding pain rx pt as tolerated refer to snf per pt request Subjective ROS Limited/Unobtainable: No Constitutional: Reports: malaise, weakness HEENT: Reports: no symptoms Cardiovascular: Reports: no symptoms Respiratory: Reports: no symptoms Gastrointestinal/Abdominal: Reports: abdominal pain Genitourinary: Reports: no symptoms Neurologic/Psychiatric: Reports: depressed Endocrine: Reports: no symptoms Hematologic/Lymphatic: Reports: no symptoms Allergies: Coded Allergies: No Known Allergies (Verified , 05/29/09) All Systems: reviewed and negative except above Subjective Complains of pain. per pt better controlled. sleeping. On IV antibiotics. Urine culture with E.coli. No fevers chills or chest pain. Denies cough. Unable to obtain antirejection medications on the outside. asking to go to snf Objective Last 24 Hour Vital Signs Date Time Temp Pulse Resp B/P (MAP) Pulse Ox O2 Delivery O2 Flow Rate FiO2 04/16/20 05:02 152/77 04/16/20 04:30 97.5 76 18 152/77 (102) 97 04/16/20 00:00 97.7 77 20 141/71 (94) 97 04/15/20 21:27 129/69 04/15/20 21:25 82 129/69 04/15/20 21:00 Room Air 04/15/20 20:00 97.8 82 20 129/69 (89) 97 04/15/20 16:00 98.4 88 18 147/79 (101) 97 04/15/20 13:38 159/78 04/15/20 12:00 98.1 16 159/78 (105) 97 04/15/20 09:00 Room Air 04/15/20 08:57 78 157/80 04/15/20 08:57 78 157/80 Intake and Output 04/15/20 04/16/20 19:00 07:00 Intake Total 1167.5 ml 947.5 ml Output Total 1800 ml Balance 1167.5 ml -852.5 ml IV Total 567.5 ml 947.5 ml Other 600 ml Output Urine Total 1800 ml Laboratory Tests 04/16/20 05:55: White Blood Count 3.7L, Red Blood Count 2.76L, Hemoglobin 9.0L, Hematocrit 28.7L , Mean Corpuscular Volume 104H, Mean Corpuscular Hemoglobin 32.7H, Mean Corpuscular Hemoglobin Concent 31.5L, Red Cell Distribution Width 14.4, Platelet Count 143L, Mean Platelet Volume 9.1, Neutrophils (%) (Auto) 55.3, Lymphocytes (%) (Auto) 33.7, Monocytes (%) (Auto) 7.9, Eosinophils (%) (Auto) 1.8, Basophils (%) (Auto) 1.3, Sodium Level 143, Potassium Level 4.2, Chloride Level 112H, Carbon Dioxide Level 22, Anion Gap 10, Blood Urea Nitrogen 12, Creatinine 1.2, Estimat Glomerular Filtration Rate 52.1, Glucose Level 103, Calcium Level 8.3L, Magnesium Level [Pending], Total Bilirubin 0.4, Aspartate Amino Transf (AST/SGOT) 17, Alanine Aminotransferase (ALT/SGPT) [Pending], Alkaline Phosphatase 63, Total Protein 6.6, Albumin 2.4L, Globulin 4.2, Albumin/ Globulin Ratio 0.6L, Thyroid Stimulating Hormone (TSH) [Pending] Height (Feet): 5 Height (Inches): 6.00 Weight (Pounds): 129 Objective General Appearance: WD/WN, alert EENT: PERRL/EOMI, normal ENT inspection Neck: non-tender, normal alignment, supple Cardiovascular: normal peripheral pulses, normal rate, regular rhythm Respiratory/Chest: chest wall non-tender, lungs clear, normal breath sounds, no respiratory distress, no accessory muscle use Abdomen: normal bowel sounds, non tender, soft, no organomegaly, no mass Extremities: normal range of motion Edema: no edema noted Arm (L), no edema noted Arm (R), no edema noted Leg (L), no edema noted Leg (R), no edema noted Pedal (L), no edema noted Pedal (R), no edema noted Generalized 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
[2020-04-16 08:35] LABS: ALANINE AMINOTRANSFERASE 8 U/L (12-78)
[2020-04-16] MEDS: Xarelto 10mg tab ORAL SCH (09:59)
[2020-04-16] MEDS: cycloSPORINE 100mg cap ORAL SCH ×2 (10:04→17:29)
[2020-04-16] MEDS: azaTHIOprine 50 MG TAB ORAL SCH (10:04)
[2020-04-16] MEDS: HYDROcodone/Acetamin 10/325 tab ORAL SCH (10:05)
--- NOTE | 2020-04-16 11:48 | Infectious Diseases Prog Note ---
Assessment/Plan Assessment/Plan antibiotics : zosyn A 1. e.coli UTI 2. Hydronephrosis. 3. History of kidney transplant. 4. Hypertension. 5. Status post right BKA. P 1. continue zosyn 2 more days 2. will follow up cultures Subjective ROS Limited/Unobtainable: Yes Allergies: Coded Allergies: No Known Allergies (Verified , 05/29/09) Objective Last 24 Hour Vital Signs Date Time Temp Pulse Resp B/P (MAP) Pulse Ox O2 Delivery O2 Flow Rate FiO2 04/16/20 10:04 80 149/73 04/16/20 10:01 80 149/73 04/16/20 09:00 Room Air 04/16/20 08:00 97.0 80 19 149/73 (98) 98 04/16/20 05:02 152/77 04/16/20 04:30 97.5 76 18 152/77 (102) 97 04/16/20 00:00 97.7 77 20 141/71 (94) 97 04/15/20 21:27 129/69 04/15/20 21:25 82 129/69 04/15/20 21:00 Room Air 04/15/20 20:00 97.8 82 20 129/69 (89) 97 04/15/20 16:00 98.4 88 18 147/79 (101) 97 04/15/20 13:38 159/78 04/15/20 12:00 98.1 16 159/78 (105) 97 Height (Feet): 5 Height (Inches): 6.00 Weight (Pounds): 129 Respiratory/Chest: lungs clear Cardiovascular: normal rate, regular rhythm, no gallop/murmur Abdomen: soft, non tender Extremities: no edema, other - right stump clean Laboratory Tests Test 04/16/20 05:55 White Blood Count 3.7 K/UL (4.8-10.8) L Red Blood Count 2.76 M/UL (4.20-5.40) L Hemoglobin 9.0 G/DL (12.0-16.0) L Hematocrit 28.7 % (37.0-47.0) L Mean Corpuscular Volume 104 FL (80-99) H Mean Corpuscular Hemoglobin 32.7 PG (27.0-31.0) H Mean Corpuscular Hemoglobin Concent 31.5 G/DL (32.0-36.0) L Red Cell Distribution Width 14.4 % (11.6-14.8) Platelet Count 143 K/UL (150-450) L Mean Platelet Volume 9.1 FL (6.5-10.1) Neutrophils (%) (Auto) 55.3 % (45.0-75.0) Lymphocytes (%) (Auto) 33.7 % (20.0-45.0) Monocytes (%) (Auto) 7.9 % (1.0-10.0) Eosinophils (%) (Auto) 1.8 % (0.0-3.0) Basophils (%) (Auto) 1.3 % (0.0-2.0) Sodium Level 143 MMOL/L (136-145) Potassium Level 4.2 MMOL/L (3.5-5.1) Chloride Level 112 MMOL/L (98-107) H Carbon Dioxide Level 22 MMOL/L (21-32) Anion Gap 10 mmol/L (5-15) Blood Urea Nitrogen 12 mg/dL (7-18) Creatinine 1.2 MG/DL (0.55-1.30) Estimat Glomerular Filtration Rate 52.1 mL/min (>60) Glucose Level 103 MG/DL (74-106) Calcium Level 8.3 MG/DL (8.5-10.1) L Magnesium Level 1.4 MG/DL (1.8-2.4) L Total Bilirubin 0.4 MG/DL (0.2-1.0) Aspartate Amino Transf (AST/SGOT) 17 U/L (15-37) Alanine Aminotransferase (ALT/SGPT) 8 U/L (12-78) L Alkaline Phosphatase 63 U/L (46-116) Total Protein 6.6 G/DL (6.4-8.2) Albumin 2.4 G/DL (3.4-5.0) L Globulin 4.2 g/dL Albumin/Globulin Ratio 0.6 (1.0-2.7) L Thyroid Stimulating Hormone (TSH) 1.370 uiU/mL (0.358-3.740) Current Medications Medications (Trade) Dose Ordered Sig/Toya Route PRN Reason Start Time Stop Time Status Last Admin Dose Admin Acetaminophen (Tylenol) 650 mg Q4H PRN ORAL Mild Pain (Pain Scale 1-3) 7/9/20 23:15 05/12/20 23:14 Acetaminophen/ Hydrocodone Bitart ([place] 10/325) 1 tab DAILY ORAL 04/13/20 09:00 04/20/20 08:59 04/16/20 10:05 Acetaminophen/ Hydrocodone Bitart ([place] 10/325) 1 tab Q4H PRN ORAL For Pain 04/13/20 20:00 04/20/20 19:59 04/14/20 11:52 Amlodipine Besylate (Norvasc) 5 mg DAILY ORAL 04/13/20 09:00 05/13/20 08:59 04/16/20 10:04 Azathioprine (Imuran) 75 mg DAILY ORAL 04/13/20 09:00 07/12/20 08:59 04/16/20 10:04 Carvedilol (Coreg) 3.125 mg EVERY 12 HOURS ORAL 04/13/20 09:00 05/13/20 08:59 04/16/20 10:01 Cyclosporine (Neoral) 100 mg BID ORAL 04/13/20 09:00 07/12/20 08:59 04/16/20 10:04 Fludrocortisone Acetate (Florinef) 0.1 mg DAILY ORAL 04/13/20 09:00 05/13/20 08:59 04/16/20 10:04 Gabapentin (Neurontin) 300 mg THREE TIMES A DAY ORAL 04/15/20 13:00 05/15/20 12:59 04/16/20 09:59 Hydralazine HCl (Apresoline) 25 mg EVERY 8 HOURS ORAL 04/13/20 06:00 07/12/20 05:59 04/16/20 05:02 Mirtazapine (Remeron) 15 mg BEDTIME ORAL 04/13/20 21:00 07/12/20 20:59 04/15/20 21:24 Ondansetron HCl (Zofran) 4 mg Q6H PRN IVP Nausea & Vomiting 04/12/20 23:15 05/12/20 23:14 Pantoprazole (Protonix) 40 mg DAILY ORAL 04/13/20 09:00 05/13/20 08:59 04/16/20 10:01 Piperacillin Sod/ Tazobactam Sod 3.375 gm/Sodium Chloride 110 ml @ 27.5 mls/hr EVERY 8 HOURS IVPB 04/13/20 06:00 04/18/20 05:59 04/16/20 04:57 Rivaroxaban (Xarelto) 10 mg DAILY ORAL 04/13/20 09:00 07/12/20 08:59 04/16/20 09:59 Sodium Chloride 1,000 ml @ 75 mls/hr [id number] IV 04/12/20 23:15 05/12/20 23:14 04/16/20 04:58 Temazepam (Restoril) 15 mg BEDTIME ORAL 04/13/20 21:00 04/20/20 20:59 04/15/20 21:24 Nikki Bob MD Apr 16, 2020 11:48
[2020-04-16 12:00] VITALS: BP 143/74
--- NOTE | 2020-04-16 14:51 | Nephrology Progress Note ---
Assessment/Plan Problem List: (1) Status post kidney transplant (2) UTI (urinary tract infection) (3) Phantom limb pain Plan continue same cyclosporin and aziothioprine, check cultures, on zosyn Subjective Constitutional: Reports: weakness HEENT: Reports: no symptoms Genitourinary: Reports: incontinence Neurologic/Psychiatric: Reports: no symptoms Objective Objective Last 24 Hour Vital Signs Date Time Temp Pulse Resp B/P (MAP) Pulse Ox O2 Delivery O2 Flow Rate FiO2 04/16/20 13:20 143/74 04/16/20 12:00 97.9 88 19 143/74 (97) 97 04/16/20 10:04 80 149/73 04/16/20 10:01 80 149/73 04/16/20 09:00 Room Air 04/16/20 08:00 97.0 80 19 149/73 (98) 98 04/16/20 05:02 152/77 04/16/20 04:30 97.5 76 18 152/77 (102) 97 04/16/20 00:00 97.7 77 20 141/71 (94) 97 04/15/20 21:27 129/69 04/15/20 21:25 82 129/69 04/15/20 21:00 Room Air 04/15/20 20:00 97.8 82 20 129/69 (89) 97 04/15/20 16:00 98.4 88 18 147/79 (101) 97 Intake and Output 04/15/20 04/16/20 19:00 07:00 Intake Total 1167.5 ml 947.5 ml Output Total 1800 ml Balance 1167.5 ml -852.5 ml IV Total 567.5 ml 947.5 ml Other 600 ml Output Urine Total 1800 ml Laboratory Tests 04/16/20 05:55: White Blood Count 3.7L, Red Blood Count 2.76L, Hemoglobin 9.0L, Hematocrit 28.7L , Mean Corpuscular Volume 104H, Mean Corpuscular Hemoglobin 32.7H, Mean Corpuscular Hemoglobin Concent 31.5L, Red Cell Distribution Width 14.4, Platelet Count 143L, Mean Platelet Volume 9.1, Neutrophils (%) (Auto) 55.3, Lymphocytes (%) (Auto) 33.7, Monocytes (%) (Auto) 7.9, Eosinophils (%) (Auto) 1.8, Basophils (%) (Auto) 1.3, Sodium Level 143, Potassium Level 4.2, Chloride Level 112H, Carbon Dioxide Level 22, Anion Gap 10, Blood Urea Nitrogen 12, Creatinine 1.2, Estimat Glomerular Filtration Rate 52.1, Glucose Level 103, Calcium Level 8.3L, Magnesium Level 1.4L, Total Bilirubin 0.4, Aspartate Amino Transf (AST/SGOT) 17, Alanine Aminotransferase (ALT/SGPT) 8L, Alkaline Phosphatase 63, Total Protein 6.6, Albumin 2.4L, Globulin 4.2, Albumin/Globulin Ratio 0.6L, Thyroid Stimulating Hormone (TSH) 1.370 Height (Feet): 5 Height (Inches): 6.00 Weight (Pounds): 129 General Appearance: no apparent distress, alert EENT: normal ENT inspection Neck: normal alignment Cardiovascular: normal rate Respiratory/Chest: lungs clear Abdomen: non tender Extremities: no edema Kade Cochran MD Apr 16, 2020 14:50
[2020-04-16 16:00] VITALS: BP 150/74
[2020-04-16] MEDS: HYDROcodone/Acetamin 10/325 tab ORAL PRN (17:29)
[2020-04-16] MEDS ORDERED: NEURONTIN300 MG ORAL (18:10)
[2020-04-16] MEDS ORDERED: NORCO 10-325 T1 EACH ORAL (18:13)
--- NOTE | 2020-04-16 23:55 | Cardiology Progress Note ---
Subjective Her diffuse body pain, including back abdomen, and chest, is slightly better controlled. Urine culture positive Patient is concerned that she has been unable to get her immunosuppr meds as an outpatient. Discharge planned to SNF. Objective Last 24 Hour Vital Signs Date Time Temp Pulse Resp B/P (MAP) Pulse Ox O2 Delivery O2 Flow Rate FiO2 04/16/20 16:00 97.7 85 19 150/74 (99) 98 04/16/20 13:20 143/74 04/16/20 12:00 97.9 88 19 143/74 (97) 97 04/16/20 10:04 80 149/73 04/16/20 10:01 80 149/73 04/16/20 09:00 Room Air 04/16/20 08:00 97.0 80 19 149/73 (98) 98 04/16/20 05:02 152/77 04/16/20 04:30 97.5 76 18 152/77 (102) 97 04/16/20 00:00 97.7 77 20 141/71 (94) 97 HEENT: normal ENT inspection LUNGS: lungs clear bilaterally CARDIAC: regular rhythm, normal S1 and S2, gallop/S4, other - no rub ABDOMEN: normal bowel sounds, soft, other - palpable renal tx on right lower quadrant EXTREMITIES: normal capillary refill, other - right BKA Laboratory Tests Test 04/16/20 05:55 White Blood Count 3.7 K/UL (4.8-10.8) L Red Blood Count 2.76 M/UL (4.20-5.40) L Hemoglobin 9.0 G/DL (12.0-16.0) L Hematocrit 28.7 % (37.0-47.0) L Mean Corpuscular Volume 104 FL (80-99) H Mean Corpuscular Hemoglobin 32.7 PG (27.0-31.0) H Mean Corpuscular Hemoglobin Concent 31.5 G/DL (32.0-36.0) L Red Cell Distribution Width 14.4 % (11.6-14.8) Platelet Count 143 K/UL (150-450) L Mean Platelet Volume 9.1 FL (6.5-10.1) Neutrophils (%) (Auto) 55.3 % (45.0-75.0) Lymphocytes (%) (Auto) 33.7 % (20.0-45.0) Monocytes (%) (Auto) 7.9 % (1.0-10.0) Eosinophils (%) (Auto) 1.8 % (0.0-3.0) Basophils (%) (Auto) 1.3 % (0.0-2.0) Sodium Level 143 MMOL/L (136-145) Potassium Level 4.2 MMOL/L (3.5-5.1) Chloride Level 112 MMOL/L (98-107) H Carbon Dioxide Level 22 MMOL/L (21-32) Anion Gap 10 mmol/L (5-15) Blood Urea Nitrogen 12 mg/dL (7-18) Creatinine 1.2 MG/DL (0.55-1.30) Estimat Glomerular Filtration Rate 52.1 mL/min (>60) Glucose Level 103 MG/DL (74-106) Calcium Level 8.3 MG/DL (8.5-10.1) L Magnesium Level 1.4 MG/DL (1.8-2.4) L Total Bilirubin 0.4 MG/DL (0.2-1.0) Aspartate Amino Transf (AST/SGOT) 17 U/L (15-37) Alanine Aminotransferase (ALT/SGPT) 8 U/L (12-78) L Alkaline Phosphatase 63 U/L (46-116) Total Protein 6.6 G/DL (6.4-8.2) Albumin 2.4 G/DL (3.4-5.0) L Globulin 4.2 g/dL Albumin/Globulin Ratio 0.6 (1.0-2.7) L Thyroid Stimulating Hormone (TSH) 1.370 uiU/mL (0.358-3.740) Microbiology Date/Time Source Procedure Growth Status 04/16/20 14:12 Nasopharynx SARS-CoV-2 RdRp Gene Assay - Final Complete Assessment/Plan Assessment/Plan UTI Sepsis Musculoskeletal Chest pain Hx DVT Hx renal transplant PAD with hx right BKA Hypertension Pacemaker PLAN: IV abx DC IVF Maintain current antiHTN regimen Pain control Full anti-coagulation rx with apixaban Outpatient immunosuppr regimen Outpatient pacemaker follow-up arranged. Matthew Tinajero MD Apr 16, 2020 23:55
--- NOTE | 2020-04-17 03:59 | Progress Note ---
DATE: 04/13/2020 CARDIOLOGY PROGRESS NOTE Late entry for April 13, 2020. SUBJECTIVE: The patient remains withdrawn and lethargic. She is confused. She has discomfort in her chest, back, and neck as well as extremities. She says that she has not had any of her immunosuppressant drugs for a while since her last hospitalization as she was unable to get them at home. OBJECTIVE: VITAL SIGNS: Blood pressure 148/90, heart rate 79, respiratory rate 20, afebrile, and oxygen saturation 98% on room air. LUNGS: Tenderness over chest and chest wall. Lungs clear. CARDIAC: Regular. Normal S1, S2 with a fourth heart sound. Pacemaker pocket site is clean and dry. ABDOMEN: Soft and nontender. Palpable renal transplant site on the right lower quadrant. EXTREMITIES: No edema. Right BKA stump. IMPRESSION: 1. Urinary tract infection with sepsis. 2. Toxic and metabolic encephalopathies. 3. Peripheral artery disease with right BKA. 4. Hypertensive heart disease. 5. Permanent pacemaker. 6. Hypovolemia and dehydration. 7. History of DVT, on chronic anticoagulation. PLAN: 1. Intravenous fluids. 2. Antimicrobials. 3. Pain control. 4. Restart immunosuppressant drugs per exercise specialist. 5. Full anticoagulation continuing. Matthew Tinajero M.D. DR: LALY JOB#: [id number] CC:
--- NOTE | 2020-04-17 03:59 | Progress Note ---
DATE: 04/14/2020 CARDIOLOGY PROGRESS NOTE Late entry for April 14, 2020. SUBJECTIVE: The patient is weak. Slightly more alert and interactive. Still complaining of pain. OBJECTIVE: VITAL SIGNS: Vitals reviewed. Blood pressure 131/71, heart rate 78, and respirations 16. Afebrile. LUNGS: Clear. CARDIAC: Regular. A 1/6 systolic murmur at apex. ABDOMEN: Soft. EXTREMITIES: Right BKA. No edema. IMPRESSION: 1. Sepsis. 2. Urinary tract infection with gram-negative rods. 3. Toxic and metabolic encephalopathies. 4. Noncardiac chest pain. 5. Musculoskeletal chest pain. 6. History of DVT, on chronic anticoagulation. 7. Permanent pacemaker. PLAN: 1. Plan of care reviewed and updated. 2. No interim change in cardiovascular regimen. 3. Adjusting intravenous fluids. 4. Awaiting final cultures. 5. Outpatient pacemaker interrogation. 6. Resuming immunosuppressants. 7. Maintaining full anticoagulation. Matthew Tinajero M.D. DR: LALY JOB#: [id number] CC:
--- NOTE | 2020-04-17 12:52 | Discharge Summary ---
Discharge Summary Discharge Summary _ DATE OF ADMISSION: 04/12/2020 DATE OF DISCHARGE: 04/16/2020 DISCHARGED BY: Dr Red REASON FOR ADMISSION: 80 years old female with past medical history of diabetes mellitus, hypertension , coronary artery disease, [place], CHF, PVD, right BKA, history of right kidney transplant, presented with complaint of crampy abdominal pain. Patient also reported polyuria. She denied fever and chills. She denied nausea and vomiting. She denied chest pain or shortness of breath. No cough or congestion. Upon evaluation patient was afebrile , and pulse oximetry was stable on room air. Laboratory work-up revealed no leukocytosis ,hemoglobin 10.7 ,hematocrit 33.2 , platelet count 180. Stable electrolytes. BUN 16, creatinine 1.2. Glucose 132. Stable LFT. Urinalysis revealed +3 protein ,+3 leukocyte esterase, pyuria and bacteria . CT of the abdomen and pelvis revealed : 1. Noncalcified nodule at the left lung base. PET imaging was advised to follow. Neoplasm or metastatic disease cannot be excluded. 2. Cardiomegaly. 3. Small hiatal hernia. 4. Distal esophagitis. 5. ASCVD. 6. Diffuse fatty infiltration of the liver. 7. 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 8. Probable simple splenic cyst also noted. 9. Probable adrenal adenomas, no further workup is a follow-up was advised. 10. Atrophic kidneys containing innumerable nonobstructing renal calculi and simple cyst. 11. Appendix is unremarkable. 12. Moderate crepitus stool throughout the colon. 13. No evidence of bowel obstruction. 14. Past point kidney in the right lower quadrant exhibits mild to moderate hydronephrosis of uncertain etiology. No filling defect within the transplant ureter noted. 15. Probable seroma right lower quadrant anterior abdominal wall. 16. Status post hysterectomy. 17. Minimal wall thickening of the distal rectum. Inflammatory or infectious etiology should be considered. 18. Diffuse inflammatory changes of the stent continues tissues of the buttocks suggestive of cellulitis. Clinical correlation is advised. In emergency department patient pancultured, received empiric antibiotic and admitted for further management. CONSULTANTS: private detective ID specialist Dr. Bob sack maker Dr. Cochran HOSPITAL COURSE: Patient admitted to medical surgical floor. Antibiotics provided as per ID specialist recommendation. Urine culture revealed E. coli ESBL. Anti COVID testing by rapid assay was negative. Patient will need to continue antibiotic for additional 2 days at the facility to complete the course as per ID recommendations. Hospital Pharmacist closely followed. Renal parameters and electrolytes were closely monitored. Patient continued on cyclosporine and azathioprine. Renal parameters remained stable. [employer] Programmer closely followed. Per private detective, chest pain was noncardiac and most likely musculoskeletal. Pain management was addressed. Current antihypertensive regimen was continued. Patient was continued on full anticoagulation with apixaban for history of DVT. Patient was arranged for outpatient pacemaker follow-up with interrogation Supportive care provided. Patient was preferred to be discharged to SNF. Placement was arranged to [facility]. Patient was stable for transfer. FINAL DIAGNOSES: E. coli ESBL UTI Toxic metabolic encephalopathy Noncardiac , musculoskeletal chest pain History of right kidney transplant Hypertensive heart disease Permanent pacemaker History of DVT , on chronic anticoagulation PAD, s/p right BKA Phantom limb pain DISCHARGE MEDICATIONS: See Medication Reconciliation list. DISCHARGE INSTRUCTIONS: [facility] Follow up with medical doctor at the facility. I have been assigned to dictate discharge summary for this account. I was not involved in the patient's management. Amy Morataya NP Apr 17, 2020 12:52
== END 2020-04-16 19:15 | DRG 871 ==
LOC: EMR 19:50 → 4E 22:47 → EDBEDREQ 23:34
DX: A41.9 Sepsis, unspecified organism (principal); G92 Toxic encephalopathy; N39.0 Urinary tract infection, site not specified; Z94.0 Kidney transplant status; Z16.12 Extended spectrum beta lactamase (ESBL) resistance; N13.30 Unspecified hydronephrosis; N12 Tubulo-interstitial nephritis, not specified as acute or chronic; K44.9 Diaphragmatic hernia without obstruction or gangrene; Z86.718 Personal history of other venous thrombosis and embolism; Z79.01 Long term (current) use of anticoagulants; R07.89 Other chest pain; B96.20 Unspecified Escherichia coli [E. coli] as the cause of diseases classified elsewhere; I11.9 Hypertensive heart disease without heart failure; Z89.511 Acquired absence of right leg below knee; I73.9 Peripheral vascular disease, unspecified; G54.6 Phantom limb syndrome with pain; Z89.422 Acquired absence of other left toe(s); I25.10 Atherosclerotic heart disease of native coronary artery without angina pectoris; Z22.322 Carrier or suspected carrier of Methicillin resistant Staphylococcus aureus
CPT/HCPCS: 36415; 74177; 80053; 81003; 83735; 84443; 85025; 87081; 87086; 87181; 96361; 96365; 99285; J7030; U0002